=== PATIENT | male | born 1935 | race Caucasian/White ===

== ENCOUNTER 2019-05-04 17:53 | Emergency (ER) | payer OTHER ==
[2019-05-04 18:27] LABS: Absolute Lymphocytes (CBC) 1.4 K/uL (0.7-4.9); Basophils % 0.8 % (0-1.3); MPV 8.5 fL (7.6-11.3); RBC Red Blood Cell Count 5.07 M/uL (4.33-5.43)
--- NOTE | 2019-05-04 18:27 | RAD REPORT ---
EXAM DESCRIPTION: CT - Ct Stroke Brain Wo Cont - 05/04/2019 6:18 pm CLINICAL HISTORY: Confusion/alteration of awareness COMPARISON: 2013 TECHNIQUE: Computed axial tomography of the head was obtained. All CT scans are performed using dose optimization technique as appropriate and may include automated exposure control or mA/KV adjustment according to patient size. FINDINGS: An intracranial bleed is not seen . The ventricles are normal in caliber. No extra-axial fluid collection is noted. Moderate low-density within periventricular, deep and subcortical white matter likely ischemic change s secondary to small vessel disease Fluid within the sinuses/ mastoids is not seen. IMPRESSION: No acute intracranial abnormality is seen. If patient's symptoms persist MRI of the bra in would be recommended. Dr Pham of the emergency room was notified at 615 p.m. May 04, 2019
[2019-05-04 18:35] LABS: Protime INR 1.16
[2019-05-04 18:42] LABS: Potassium 4.2 mmol/L (3.5-5.1)
--- NOTE | 2019-05-04 19:23 | RAD REPORT ---
EXAM DESCRIPTION: Elvira Single View05/04/2019 7:11 pm CLINICAL HISTORY: cva COMPARISON: 2016 FINDINGS: The lungs appear clear of acute infiltrate. The heart is normal size IMPRESSION: No acute abnormalities displayed
--- NOTE | 2019-05-04 19:55 | EDPHYS ---
Physician Documentation [facility] Name: Valerio France Age: 84 yrs Sex: Male : 1935 Arrival Date: 05/04/2019 Time: 18:03 Bed 2 Private MD: ED Physician Chepe Pham HPI: 05/04 18:34 This 84 yrs old Male presents to ER via Wheelchair with complaints of S/S of jmm Possible Stroke. 18:34 The patient's problem is reported as paresthesias, in left upper extremity. Onset: The jmm symptoms/episode began/occurred just prior to arrival. The symptoms are alleviated by nothing. The symptoms are aggravated by nothing. Associated signs and symptoms: Pertinent positives: ataxia. This is an 84 year old male with a history of DM, TIA that presents to the ED with complaints of left sided weakness and numbness. Symptoms began approx 30 min prior to arrival. Initially began with left shoulder numbness which spread to the left leg and left side of the face. patient states symptoms are now resolved. Patient is not currently taking Xarelto. . Historical: - Allergies: 18:06 No Known Allergies; ph - PMHx: 18:06 Diabetes - NIDDM; TIA; ph - PSHx: 18:06 Knee surgery; ph - Immunization history:: Adult Immunizations up to date. - Social history:: Smoking status: Patient/guardian denies using tobacco. - Ebola Screening: : No symptoms or risks identified at this time. ROS: 18:34 Constitutional: Negative for fever, chills, and weight loss, Cardiovascular: Negative jmm for chest pain, palpitations, and edema, Respiratory: Negative for shortness of breath, cough, wheezing, and pleuritic chest pain. 18:34 Neuro: Positive for gait disturbance, numbness. 18:34 All other systems are negative. Exam: 18:34 Constitutional: This is a well developed, well nourished patient who is awake, alert, jmm and in no acute distress. Head/Face: atraumatic. Eyes: EOMI, no conjunctival erythema appreciated ENT: Moist Mucus Membranes Neck: Trachea midline, Supple Chest/axilla: Normal chest wall appearance and motion. Cardiovascular: Regular rate and rhythm. No edema appreciated Respiratory: Normal respirations, no respiratory distress appreciated Abdomen/GI: Non distended, soft Back: Normal ROM Skin: General appearance color normal MS/ Extremity: Moves all extremities, no obvious deformities appreciated, no edema noted to the lower extremities 18:34 Neuro: Orientation: is normal, Mentation: is normal, Memory: is normal, Cerebellar function: normal finger to nose testing, Motor: is normal, Sensation: is normal. 18:34 Psych: Behavior/mood is pleasant, cooperative. Vital Signs: 18:05 BP 163 / 81; Pulse 94; Resp 18; Pulse Ox 99% on R/A; Weight 72.57 kg; ph 19:23 BP 122 / 94; Pulse 82; Resp 19; Temp 98.5; Pulse Ox 98% on R/A; ak1 20:52 BP 130 / 71; Pulse 85; Resp 16; Pulse Ox 98% ; rr5 NIH Stroke Scale Scores: 18:02 NIHSS Score: 0 sg Norberto Coma Score: 19:23 Eye Response: spontaneous(4). Verbal Response: oriented(5). Motor Response: obeys rr5 commands(6). Total: 15. 20:52 Eye Response: spontaneous(4). Verbal Response: oriented(5). Motor Response: obeys rr5 commands(6). Total: 15. MDM: 18:20 Patient medically screened. [facility] 19:50 Data reviewed: vital signs, nurses notes. Counseling: I had a detailed discussion with [facility] the patient and/or guardian regarding: the historical points, exam findings, and any diagnostic results supporting the discharge/admit diagnosis, lab results, radiology results, the need to transfer to another facility. ED course: Family requested transfer to [facility]. I discussed the patient with Dr. Nelson whom will consult on admission. I discussed the patient with Dr. Medel whom accepted transfer. . 05/04 18:13 Order name: Basic Metabolic Panel; Complete Time: 18:50 12 18:13 Order name: CBC with Diff; Complete Time: 18:50 05/04 18:13 Order name: Protime (+inr); Complete Time: 18:50 12 18:13 Order name: Ptt, Activated; Complete Time: 18:50 12 18:33 Order name: Glucose, Ancillary Testing; Complete Time: 18:50 EDDC 05/04 20:46 Order name: Urine Dipstick--Ancillary (enter results) ar5 12/07 18:11 Order name: CT Stroke Brain w/o Contrast; Complete Time: 18:50 05/04 18:13 Order name: Stroke CXR 1 View; Complete Time: 19:29 05/04 18:13 Order name: EKG; Complete Time: 18:14 05/04 18:13 Order name: Accucheck; Complete Time: 18:56 05/04 18:13 Order name: Cardiac monitoring; Complete Time: 18:56 05/04 18:13 Order name: EKG - Nurse/Tech; Complete Time: 18:56 05/04 18:13 Order name: IV Saline Lock; Complete Time: 18:35 05/04 18:13 Order name: Labs collected and sent; Complete Time: 18:56 05/04 18:13 Order name: NPO; Complete Time: 18:56 05/04 18:13 Order name: O2 Per Protocol; Complete Time: 18:56 05/04 18:13 Order name: O2 Sat Monitoring; Complete Time: 18:56 05/04 18:13 Order name: Stroke Swallow Screen; Complete Time: 18:56 05/04 19:32 Order name: Urine Dipstick-Ancillary (obtain specimen); Complete Time: 20:05 apolinar Administered Medications: 19:56 Drug: foLIC Acid 1 mg Route: IVPB; Site: right antecubital; ak1 20:05 Follow up: IV Status: Completed infusion ak1 19:57 Drug: NS 0.9% 1000 ml Route: IV; Rate: 1 bolus; Site: right antecubital; ak1 20:05 Follow up: IV Status: Infusion continued upon transfer ak1 Point of Care Testing: Blood Glucose: 18:30 Blood Glucose: 261 mg/dL; hb Ranges: Critical Glucose Levels:Adult <50 mg/dl or >400 mg/dl <40 mg/dl or >180 mg/dl Disposition: 05/05 07:28 Co-signature as Attending Physician, Chepe Pham MD I agree with the assessment and kdr plan of care. Disposition: 05/04/19 19:54 Transfer ordered to Other Acute Care Facility. Diagnosis are Transient cerebral ischemic attack, unspecified, Paresthesia of skin. - Reason for transfer: Higher level of care. - Accepting physician is Medel. - Condition is Stable. - Problem is an acute exacerbation. - Symptoms are resolved. NIH Stroke Scale - NIH Stroke Score Date: 05/04/2019 Time: 18:02 Total Score = 0 1a. Level of Consciousness (LOC) - 0(Alert) 1b. Level of Consciousness (LOC) (Year \T\ Age) - 0(Both) 1c. LOC Commands (Open \T\ Closes Eyes/Senior Teradata Developer) - 0(Both) 2. Best Gaze (Lateral Gaze Paresis) - 0(Normal) 3. Visual Field Loss - 0(No visual loss) 4. Facial Palsy - 0(Normal) 5a. Left Arm: Motor (10-second hold) - 0(No drift) 5b. Right Arm: Motor (10-second hold) - 0(No drift) 6a. Left Leg: Motor (5-second hold - always test supine) - 0(No drift) 6b. Right Leg: Motor (5-second hold - always test supine) - 0(No drift) 7. Limb Ataxia (finger/nose \T\ heel/ba - test with eyes open) - 0(Absent) 8. Sensory Loss (pinprick arms/legs/face) - 0(Normal) 9. Best Language: Aphasia (description/naming/reading) - 0(No aphasia) 10. Dysarthria (speech clarity - read or repeat words) - 0(Normal) 11. Extinction and Inattention (visual/tactile/auditory/spatial/personal) - 0(No abnormality) Initials: Signatures: Dispatcher [employer] Durga Lopez RN RN sg Chepe Pham MD MD kdr Mickail, Joel, PA PA [facility] Sabina Headley RN RN ak1 Randa Gamboa RN RN Norma Zurita RN RN Tien Medina RN RN rr5 Corrections: (The following items were deleted from the chart) 05/04 20:54 19:54 05/04/2019 19:54 Transfer ordered to Other Acute Care Facility. Diagnosis rr5 is Transient cerebral ischemic attack, unspecified; Paresthesia of skin. Reason for transfer: Higher level of care. Accepting physician is Medel. Condition is Stable. Problem is an acute exacerbation. Symptoms are resolved. [facility]
--- NOTE | 2019-05-04 19:55 | ER ---
Nurse's Notes [facility] Name: Valerio France Age: 84 yrs Sex: Male : 1935 Arrival Date: 05/04/2019 Time: 18:03 Bed 2 Private MD: Diagnosis: Transient cerebral ischemic attack, unspecified;Paresthesia of skin Presentation: 05/04 18:03 Presenting complaint: Patient states: " I think I had a mini stroke." Reports numbness ph to L shoulder and L side of face, also reports trouble ambulating w/ L leg, symptom onset approx 30 min ago, hx of TIA. Transition of care: patient was not received from another setting of care. No acute neurological deficit is noted. Onset of symptoms was May 04, 2019. Risk Assessment: Do you want to hurt yourself or someone else? Patient reports no desire to harm self or others. Initial Sepsis Screen: Does the patient meet any 2 criteria? No. Patient's initial sepsis screen is negative. Does the patient have a suspected source of infection? No. Patient's initial sepsis screen is negative. Care prior to arrival: None. 18:03 Method Of Arrival: Wheelchair ph 18:03 Acuity: VICTORINO 2 ph Stroke Activation: Symptom onset < 3 hours Physician: Stroke Attending; Name: ; Notified At: ; Arrived At: Physician: Chief Stroke Resident; Name: ; Notified At: ; Arrived At: Physician: Stroke Resident; Name: ; Notified At: ; Arrived At: Physician: ED Attending; Name: ; Notified At: ; Arrived At: Physician: ED Resident; Name: ; Notified At: ; Arrived At: Historical: - Allergies: 18:06 No Known Allergies; ph - PMHx: 18:06 Diabetes - NIDDM; TIA; ph - PSHx: 18:06 Knee surgery; ph - Immunization history:: Adult Immunizations up to date. - Social history:: Smoking status: Patient/guardian denies using tobacco. - Ebola Screening: : No symptoms or risks identified at this time. Screenin:14 Abuse screen: Denies threats or abuse. Denies injuries from another. Nutritional hb screening: No deficits noted. Tuberculosis screening: No symptoms or risk factors identified. Fall Risk Total Estrella Fall Scale indicates Low Risk Score (25-44 pts). Fall prevention measures have been instituted. Side Rails Up X 2 Frequent Obs/Assesments occuring Family Present and informed to notify staff if they need to leave bedside As available Patient and Family Educated on Fall Prevention Program and strategies. Assessment: 18:01 Reassessment: Dr. Pham at bedside. hb 18:02 VAN Scoring: Arm Drift: Patients demonstrates NO arm weakness. Patient is VAN Negative. sg The patient has not been NPO before screening. The patient is alert, and able to follow commands. The patient does not exhibit slurred or garbled speech. The patient is not exhibiting difficulty speaking. The patient does not exhibit difficulty understanding words. The patient is able to swallow own secretions with no drooling or need for suction. Patient tolerated one teaspoon of water. No drooling, immediate coughing, gurgling, or clearing of the throat was noted. The patient tolerated 90mL of water. No drooling, immediate coughing, gurgling, or clearing of the throat was noted. The patient passed the bedside swallow screening. Oral medications may be given as ordered. Contact Physician for further diet orders. Provider notified of bedside swallow screening results: Chepe Pham MD. Reassessment: performed NIH and VAN screening, results reported to pt daughter at bedside as well as patient. 18:07 Reassessment: Pt taken to CT via stretcher. ph 18:14 Reassessment: Pt returned from CT via stretcher. An from inside lab at bedside for lab hb draw. 18:20 General: Appears in no apparent distress. Behavior is calm, cooperative. Pain: Denies hb pain. Neuro: Level of Consciousness is awake, alert, obeys commands, Oriented to person, place, time, situation. Cardiovascular: Capillary refill < 3 seconds Patient's skin is warm and dry. Respiratory: Airway is patent Respiratory effort is even, unlabored, Respiratory pattern is regular, symmetrical, Breath sounds are clear bilaterally. GI: No signs and/or symptoms were reported involving the gastrointestinal system. : No signs and/or symptoms were reported regarding the genitourinary system. EENT: No signs and/or symptoms were reported regarding the EENT system. Derm: Skin is pink, warm \\T\\ dry. Musculoskeletal: No signs and/or symptoms reported regarding the musculoskeletal system. 18:30 T-PA (Activase) Screening: Indications: Definite evidence of stroke, ischemic, embolic, hb or hypertensive: No. 19:22 General: Appears in no apparent distress. comfortable, Behavior is calm, cooperative, ak1 appropriate for age. Neuro: Level of Consciousness is awake, alert, obeys commands, Oriented to person, place, time, situation, Moves all extremities. Full function Speech is normal, Facial symmetry appears normal. Cardiovascular: No deficits noted. Respiratory: Airway is patent Respiratory effort is even, unlabored, Respiratory pattern is regular, symmetrical, Breath sounds are clear bilaterally. GI: No signs and/or symptoms were reported involving the gastrointestinal system. : No signs and/or symptoms were reported regarding the genitourinary system. EENT: No signs and/or symptoms were reported regarding the EENT system. Derm: Skin is pink, warm \\T\\ dry. Musculoskeletal: No signs and/or symptoms reported regarding the musculoskeletal system. 20:10 Reassessment: gibran of [facility] staff accepted the case. rr5 20:51 Reassessment: Patient appears in no apparent distress at this time. Patient is alert, rr5 oriented x 3, equal unlabored respirations, skin warm/dry/pink. report given to [facility] staff, awake breathing spontaneously at room air. vitally stable. no complaints made. Vital Signs: 18:05 BP 163 / 81; Pulse 94; Resp 18; Pulse Ox 99% on R/A; Weight 72.57 kg; ph 19:23 BP 122 / 94; Pulse 82; Resp 19; Temp 98.5; Pulse Ox 98% on R/A; ak1 20:52 BP 130 / 71; Pulse 85; Resp 16; Pulse Ox 98% ; rr5 [place] Coma Score: 19:23 Eye Response: spontaneous(4). Verbal Response: oriented(5). Motor Response: obeys rr5 commands(6). Total: 15. 20:52 Eye Response: spontaneous(4). Verbal Response: oriented(5). Motor Response: obeys rr5 commands(6). Total: 15. NIH Stroke Scale Scores: 18:02 NIHSS Score: 0 sg ED Course: 18:03 Patient arrived in ED. ph 18:04 Patient has correct armband on for positive identification. Placed in gown. Bed in low hb position. Call light in reach. Side rails up X 1. 18:05 Triage completed. ph 18:05 Inserted saline lock: 20 gauge in right forearm, using aseptic technique. ,using hb aseptic technique. by Durga TINAJERO. 18:06 Arm band placed on Patient placed in an exam room, on a stretcher, in view of staff ph members, on pulse oximetry. 18:16 CT completed. Patient tolerated procedure well. Patient moved back from CT. mw3 18:17 CT Stroke Brain w/o Contrast In Process Unspecified. EDMS 18:19 Murray Bennett PA is PHCP. m 18:19 Chepe Pham MD is Attending Physician. m 18:21 Initial lab(s) drawn, by roofing laborer, sent to lab. sg 18:21 IV discontinued, intact, bleeding controlled, No redness/swelling at site. Pressure sg dressing applied. 18:26 Missed attempt(s): 22 gauge in right forearm. Bleeding controlled, band aid applied, hb catheter tip intact. 18:33 Inserted saline lock: 20 gauge in right antecubital area, using aseptic technique. dh3 18:45 EKG done, by ED staff, reviewed by Murray JUSTICE. 3 19:11 Stroke CXR 1 View In Process Unspecified. EDMS 19:22 Sabina Headley RN is Primary Nurse. ak1 20:53 No provider procedures requiring assistance completed. rr5 Administered Medications: 19:56 Drug: foLIC Acid 1 mg Route: IVPB; Site: right antecubital; ak1 20:05 Follow up: IV Status: Completed infusion ak1 19:57 Drug: NS 0.9% 1000 ml Route: IV; Rate: 1 bolus; Site: right antecubital; ak1 20:05 Follow up: IV Status: Infusion continued upon transfer ak1 Point of Care Testing: Blood Glucose: 18:30 Blood Glucose: 261 mg/dL; hb Ranges: Outcome: 19:54 ER care complete, transfer ordered by . [facility] 20:53 Transferred by ground EMS to [facility], Transfer form completed. Note: rr5 taken by [facility] 20:53 Condition: stable 20:53 Instructed on the need for transfer. 20:54 Patient left the ED. rr5 NIH Stroke Scale - NIH Stroke Score Date: 05/04/2019 Time: 18:02 Total Score = 0 1a. Level of Consciousness (LOC) - 0(Alert) 1b. Level of Consciousness (LOC) (Year \\T\\ Age) - 0(Both) 1c. LOC Commands (Open \\T\\ Closes Eyes/Healthcare Customer Service) - 0(Both) 2. Best Gaze (Lateral Gaze Paresis) - 0(Normal) 3. Visual Field Loss - 0(No visual loss) 4. Facial Palsy - 0(Normal) 5a. Left Arm: Motor (10-second hold) - 0(No drift) 5b. Right Arm: Motor (10-second hold) - 0(No drift) 6a. Left Leg: Motor (5-second hold - always test supine) - 0(No drift) 6b. Right Leg: Motor (5-second hold - always test supine) - 0(No drift) 7. Limb Ataxia (finger/nose \\T\\ heel/ba - test with eyes open) - 0(Absent) 8. Sensory Loss (pinprick arms/legs/face) - 0(Normal) 9. Best Language: Aphasia (description/naming/reading) - 0(No aphasia) 10. Dysarthria (speech clarity - read or repeat words) - 0(Normal) 11. Extinction and Inattention (visual/tactile/auditory/spatial/personal) - 0(No abnormality) Initials: sg Signatures: Dispatcher [employer] Durga Lopez RN Murray Le PA PA jmm Krenek, Amber, RN RN ak1 Randa Gamboa RN RN Norma Zurita, LIOR RN Yudelka Johnston 3 Ale Bermudez 3 Tien Medina RN RN rr5
[2019-05-04] MEDS ORDERED: FOLIC ACID 5 MG/ML VIAL ONE (19:57)
[2019-05-04] MEDS ORDERED: NA CHLORIDE 0.9% 1,000 ML ONE (19:57)
[2019-05-04 21:53] VITALS: TEMP 98.5; O2SAT 98
[2019-05-04 21:55] VITALS: BP 130/71
[2019-05-04 23:02] LABS: Urine Blood NEGATIVE (NEG); Urine Glucose 2+ (NEG); Urine Protein NEGATIVE (NEG)
--- NOTE | 2019-05-05 06:04 | EKG ---
Test Date: 2019-05-04 Test Time: 18:45:04 Volleyball Referee: LEXY MEASUREMENT RESULTS: Intervals: Rate: 84 CA: 238 QRSD: 82 QT: 370 QTc: 437 [place]: P: 28 CA: 238 QRS: 28 T: 40 INTERPRETIVE STATEMENTS: Sinus rhythm with 1st degree AV block Otherwise normal ECG Compared to ECG 05/14/2016 16:26:25 Ventricular premature complex(es) no longer present Electronically Signed On 05-05-19 06:03:12 EXECUTIVE CANDIDATE DEVELOPER by Jaya Zendejas
== END 2019-05-04 20:54 ==
LOC: ER 17:53
DX: G45.9 Transient cerebral ischemic attack, unspecified (principal)
CPT/HCPCS: 93005; 85025; 80048; 36415; 85610; 82947; 85730; 81003; 70450; 71045; 96374; 99285; J7030

== ENCOUNTER 2020-06-18 20:51 | Emergency (ER) | payer OTHER ==
--- OUTSIDE RECORDS SUMMARY | 2020-06-18 20:53 | XMS REPORT | Continuity of Care Document ---
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/19 [facility] 14 Diabetes Resolved Problem 05/07/2019 mellitus Monica,M H (disorder) [facility], OP[facility] [place] Hypertensive Resolved Problem 05/07/2019 disorder, Monica,M H systemic [facility], arterial [facility] (disorder) [place] Transient Resolved Problem 05/07/2019 ischemic attack [place], (disorder) [facility], OPID [place] Type II diabetes Active Problem 05/07/2019 [place] mellitus uncontrolled (finding) TRANSIENT Active [facility] CEREBRAL [place] ISCHEMIC ATTACK, UNSP Medications Medication Details Route Status Patient Ordering Order Source Instructions Provider Date atorvastatin Notes: (Same Inactive as: Lipitor) 2019 [place] atorvastatin 20 20 mg = 1 tab, Active 05/05/ H MG Oral Tablet PO, Bedtime, # 2019 [place] [Lipitor] 30 tab, 0 Refill(s), Pharmacy: [facility]/pharmacy #[id number] Metformin 1,000 mg = 1 Active hydrochloride tab, PO, 2019 [place] 1000 MG Oral BID-Meals, # Tablet 30 tab, 0 Refill(s), Pharmacy: [facility]/pharmacy #[id number] canagliflozin 100 mg = 1 Active 100 MG Oral tab, PO, 2019 [place] Tablet Before [Invokana] Breakfast, # 30 tab, 2 Refill(s), Pharmacy: [facility]/pharmacy #[id number] pantoprazole Notes: For IV Inactive push 2019 [place] reconstitute with 10 ml 0.9% sodium chloride and push over 2 minutes. (Same as: Protonix) Saline Flush Notes: (Same Inactive 0.9% as: BD 2019 [place] Posiflush) Insulin Notes: (Same Inactive Glargine as: Lantus) Do 2019 [place] not hold insulin without contacting prescriber WASTE: F/P - Black; E - Municipal Trash Bin "single patient use only" Stable for 28 days at room temperature Expires in days from Date heparin Notes: porcine Inactive heparin 2019 [place] Aspirin 81 MG Notes: Do not Inactive Enteric Coated crush or chew. 2019 [place] Tablet (Same As: Ecotrin) Dextrose 50% 12.5 gm, 25 No Longer Syringe (D50W) mL, Route: Active 2018 [place] IVP, Drug Form: INJ, Dosing Weight 86.477, kg, PRN, PRN Blood Glucose Results, Start date: 05/04/19 23:07:00 [employer]AREPOINT CONSULTANT, Duration: 30 day, Stop date: 06/03/19 23:06:00 [employer]AREPOINT CONSULTANT, 0 Glucagon 1 mg, Route: No Longer IM, Drug form: Active 2018 [place] PDR/INJ, PRN, Dosing Weight 86.477, kg, PRN Blood Glucose Results, Start date: 05/04/19 23:07:00 SHAREPOINT CONSULTANT, Duration: 30 day, Stop date: 06/03/19 23:06:00 SHAREPOINT CONSULTANT, 0 Insulin Lispro Notes: (Same No Longer as: Humalog) Active 2019 [place] Roll in palms of hands gently; Do not shake vigorously. WASTE: F/P - Black; E - Municipal Trash Bin Stable for 28 days at room temperature. Expires in days from Date Aspirin Notes: Take No Longer with food. Active 2019 [place] Aspirin 81 MG Notes: Do not No Longer Enteric Coated crush or chew. Active 2019 [place] Tablet (Same As: Ecotrin) Acetaminophen Notes: Do not No Longer exceed 4 Active 2019 [place] gm/day. (Same as: Tylenol) Saline Flush Notes: (Same No Longer 0.9% as: BD Active 2019 [place] Posiflush) influenza virus Notes: (Same No Longer 05/05/ H vaccine, as: Fluzone Active 2019 [place] inactivated High-Dose) high-dose For 65 years preservative-fr of age of ee older (0.5 ml intramuscular IM) Shake well suspension before use rivaroxaban 20 20 mg = 1 tab, Active MG Oral Tablet PO, QPM, # 30 2019 [place] [Xarelto] tab, 3 Refill(s) Thyroxine 75 microgram, Active PO, Daily, 0 2018 [place] Refill(s) Amlodipine 10 1 cap, PO, Active MG / Benazepril Daily, [facility] 40 MG Oral Capsule Potassium 10 mEq, PO, Active Chloride Daily, 0 2018 [place] Refill(s) candesartan 2 mg, PO, No Longer Bedtime, 0 Active 2018 [place] Refill(s) Metformin 500 mg, PO, 0 No Longer Refill(s) Active 2018 [place] Allergies, Adverse Reactions, Alerts Substance Category Reaction Severity Reaction Status Date Comments S ource type Reported No Known Assertion Drug MH Medication allergy Maggie and Allergies Immunizations Immunization Date Given Site Status Last Comments Source Updated pneumococcal 10/28/2013 Left completed Zapata 23-valent vaccine Deltoid Pe giovana, JENISE, SUZETTE Chery Results Order Name Results Value Reference Date Interpretation Comments Winifred rce Range CARDIAC Troponin-I <0.02 0.00 - 12 ENZYMES 0.40 [place] CARDIAC Troponin-I <0.02 0.00 - 1208 ENZYMES 0.40 [place] CHEM PANEL Glucose Lvl 263 70 - 99 05/05 [place] CHEM PANEL BUN 15 7 - 22 05/05 [place] CHEM PANEL Creatinine 0.88 0.50 - 12 MH Lvl 1.40 [place] CHEM PANEL Sodium Lvl 142 135 - 145 05/05 [place] CHEM PANEL Potassium Lvl 3.7 3.5 - 5.1 05/05 [place] CHEM PANEL Chloride Lvl 111 95 - 109 05/05 [place] CHEM PANEL CO2 24 24 - 32 05/05 [place] CHEM PANEL Calcium Lvl 8.4 8.5 - 10.5 05/05 [place] CHEM PANEL eGFR 79 05/05 Result Comment: The [place] eGFR is calculated using the CKD-EPI formula. In most young, healthy individuals the eGFR will be >90 mL/min/1.73m2 . The eGFR declines with age. An eGFR of 60-89 may be normal in some populations, particularly the elderly, for whom the CKD-EPI formula has not been extensively validated. Use of the eGFR is not recommended in the following populations:< br/>
Nikia viduals with unstable creatinine concentration s, including patients and those with serious co-morbid conditions.<b r/>
Patie nts with extremes in muscle mass or diet.

The data above are obtained from the National Kidney Disease Education Program (NKDEP) which additionally recommends that when the eGFR is used in patients with extremes of body mass index for purposes of drug dosing, the eGFR should be multiplied by the estimated BMI. CHEM PANEL AGAP 10.7 10.0 - 12 MH 20.0 [place] HEMATOLOGY WBC 7.6 3.7 - 10.4 05/05 [place] HEMATOLOGY RBC 4.56 4.70 - 05/05 MH 6.10 [place] HEMATOLOGY Hgb 13.8 14.0 - 12 MH 18.0 [place] HEMATOLOGY Hct 41.0 42.0 - 12/08 MH 54.0 [place] HEMATOLOGY MCV 89.9 80.0 - 05/05 MH 94.0 [place] HEMATOLOGY MCH 30.3 27.0 - 12/08 MH 31.0 [place] HEMATOLOGY MCHC 33.7 32.0 - 12/08 MH 36.0 2019 [place] HEMATOLOGY RDW 14.5 11.5 - 12 MH 14.5 [place] HEMATOLOGY Platelet 243 133 - 450 05/05 [place] HEMATOLOGY MPV 8.6 7.4 - 10.4 05/05 [place] HEMATOLOGY Segs 67.4 45.0 - 12/08 MH 75.0 [place] HEMATOLOGY Lymphocytes 19.8 20.0 - 12/08 MH 40.0 [place] HEMATOLOGY Monocytes 9.8 2.0 - 12.0 12/08 MH /2019 [place] HEMATOLOGY Eosinophils 2.0 0.0 - 4.0 05/05 [place] HEMATOLOGY Basophils 1.0 0.0 - 1.0 05/05 [place] HEMATOLOGY Neutrophils # 5.1 1.5 - 8.1 05/05 [place] HEMATOLOGY Lymphocytes # 1.5 1.0 - 5.5 05/05 [place] HEMATOLOGY Monocytes # 0.7 0.0 - 0.8 05/05 [place] HEMATOLOGY Eosinophils # 0.2 0.0 - 0.5 05/05 [place] HEMATOLOGY Basophils # 0.1 0.0 - 0.2 05/05 [place] LIPIDS CHD Risk 4.74 4.00 - 05/05 7. [place] LIPIDS Chol 161 <=199 05/05 mg/dL [place] LIPIDS Trig 109 <=149 05/05 mg/dL [place] LIPIDS HDL 34 >=61 mg/dL 05/05 [place] LIPIDS LDL 105 <=99 mg/dL 05/05 (Calculated) [place] LIPIDS VLDL 22 05/05 [place] SPECIAL Hgb A1C 8.9 <=5.6 % 05/05 CHEMISTRY [place] CARDIAC Troponin-I <0.02 0.00 - 05/05 ENZYMES 0.40 [place] CHEM PANEL Glucose Lvl 267 70 - 99 05/05 [place] CHEM PANEL BUN 15 7 - 22 05/05 [place] CHEM PANEL Creatinine 0.99 0.50 - 05/05 Lvl 1.40 [place] CHEM PANEL Sodium Lvl 143 135 - 145 05/05 [place] CHEM PANEL Potassium Lvl 4.1 3.5 - 5.1 05/05 [place] CHEM PANEL Chloride Lvl 110 95 - 109 05/05 [place] CHEM PANEL CO2 27 24 - 32 05/05 [place] CHEM PANEL Calcium Lvl 8.9 8.5 - 10.5 05/05 [place] CHEM PANEL Total Protein 6.1 6.4 - 8.4 05/05 [place] CHEM PANEL Albumin Lvl 3.4 3.5 - 5.0 05/05 [place] CHEM PANEL ALT 16 0 - 65 05/05 [place] CHEM PANEL AST 10 0 - 37 05/05 [place] CHEM PANEL Alk Phos 53 39 - 136 05/05 [place] CHEM PANEL Bili Total 0.7 0.2 - 1.3 05/05 [place] CHEM PANEL eGFR 70 05/05 Comment: The [place] eGFR is calculated using the CKD-EPI formula. In most young, healthy individuals the eGFR will be >90 mL/min/1.73m2 . The eGFR declines with age. An eGFR of 60-89 may be normal in some populations, particularly the elderly, for whom the CKD-EPI formula has not been extensively validated. Use of the eGFR is not recommended in the following populations:< br/>
Nikia viduals with unstable creatinine concentration s, including patients and those with serious co-morbid conditions.<b r/>
Patie nts with extremes in muscle mass or diet.

The data above are obtained from the National Kidney Disease Education Program (NKDEP) which additionally recommends that when the eGFR is used in patients with extremes of body mass index for purposes of drug dosing, the eGFR should be multiplied by the estimated BMI. CHEM PANEL AGAP 10.1 10.0 - 05/05 MH 20.0 [place] CHEM PANEL B/C Ratio 15 6 - 25 05/05 [place] CHEM PANEL Globulin 2.7 2.7 - 4.2 05/05 [place] CHEM PANEL A/G Ratio 1.3 0.7 - 1.6 05/05 [place] HEMATOLOGY Segs 67.3 45.0 - 12 MH 75.0 2019 [place] HEMATOLOGY Lymphocytes 20.3 20.0 - 12 MH 40.0 /2019 [place] HEMATOLOGY Monocytes 9.1 2.0 - 12.0 05/05 [place] HEMATOLOGY Eosinophils 2.4 0.0 - 4.0 05/05 [place] HEMATOLOGY Basophils 0.9 0.0 - 1.0 05/05 [place] HEMATOLOGY Neutrophils # 5.4 1.5 - 8.1 05/05 [place] HEMATOLOGY Lymphocytes # 1.6 1.0 - 5.5 05/05 [place] HEMATOLOGY Monocytes # 0.7 0.0 - 0.8 05/05 [place] HEMATOLOGY Eosinophils # 0.2 0.0 - 0.5 05/05 [place] HEMATOLOGY Basophils # 0.1 0.0 - 0.2 05/05 [place] HEMATOLOGY WBC 8.0 3.7 - 10.4 05/05 [place] HEMATOLOGY RBC 4.65 4.70 - 05/05 MH 6.10 [place] HEMATOLOGY Hgb 14.0 14.0 - 05/05 MH 18.0 [place] HEMATOLOGY Hct 41.8 42.0 - 05/05 MH 54.0 /2018 [place] HEMATOLOGY MCV 89.8 80.0 - 05/05 MH 94.0 [place] HEMATOLOGY MCH 30.1 27.0 - 05/05 MH 31.0 [place] HEMATOLOGY MCHC 33.5 32.0 - 05/05 MH 36.0 [place] HEMATOLOGY RDW 14.5 11.5 - 05/05 MH 14.5 [place] HEMATOLOGY Platelet 249 133 - 450 05/05 [place] HEMATOLOGY MPV 8.2 7.4 - 10.4 05/05 [place] HEMATOLOGY PTT 31.5 22.9 - 05/05 MH 35.8 [place] HEMATOLOGY INR 1.15 0.85 - 05/05 MH 1.17 [place] HEMATOLOGY PT 14.5 12.0 - 05/05 MH 14.7 [place] IMMUNOLOGY Treponemal Ab Non-Reactive Non 05/05 *NA* /2018 [place] (05/05/19 2:31 AM) URINE AND UA Turbidity Clear Clear 05/05 [place] (05/05/19 2:31 AM) [facility] URINE AND UA Spec Grav 1.006 <=1.030 05/05 [place] /2018 [place] URINE AND UA pH 7.0 5.0 - 8.0 05/05 [facility] 2019 [place] URINE AND UA Protein Negative Negative 05/05 [place] mg/dL mg/dL [place] URINE AND UA Ketones Negative Negative 05/05 [place] mg/dL mg/dL [place] URINE AND UA Bili Negative Negative 05/05 [place] *NA* /2018 [place] (05/05/19 2:31 AM) URINE AND UA Blood Negative Negative 05/05 [place] (05/05/19 2:31 AM) [place] URINE AND UA Nitrite Negative Negative 05/05 [place] (05/05/19 2:31 AM) [place] URINE AND UA Leuk Est Negative Negative 05/05 [place] (05/05/19 2:31 AM) [place] URINE AND UA Sq Epi None Seen 05/05 [place] URINE AND UA Color STRAW 05/05 [place] URINE AND UA Glucose 150 05/05 [place] URINE AND UA <=1.0 0.1 - 1.0 05/05 [place] Urobilinogen mg/dL [place] Pathology Reports No Data Provided for This Section Diagnostic Reports Report Value Date Source Brain wo contrast MRI PROCEDURE INFORMATION: 05/05/2019 [facility] Exam: MR Head Without Contrast Exam date and time: 05/05/2019 12:31 PM Age: 84 years old Clinical history: Weakness, extremity; Left; Additional info: /pt with tingling of left hand TECHNIQUE: Imaging protocol: MR of the head without contras t. COMPARISON: BRAIN WO CONTRAST MRI 12/06/2013 11:50 AM . Carotid ultrasound May 05, 2019. FINDINGS: Brain: There is generalized diffuse atrophy. The re are mild periventricular white matter high signal foci without mass effec t likely microangiopathic in etiology. No diffusion abnormality to suggest ac yossi or subacute infarct. Ventricles: No ventriculomegaly. Bones/joints: Unremarkable. Soft tissues: Unremarkable. Sinuses: Sphenoid sinus air-fluid level. Mastoid air cells: Normal as visualized. No mast oid effusion. Orbits: Unremarkable. Vertebral arteries: Slow flow versus occlusion o f the right distal vertebral artery. IMPRESSION: 1. Chronic changes as described above. No acute intracranial process. 2. Slow flow versus occlusion of the right dista l vertebral artery. Jian Enrique MD On 05/05/2019 14:21:12; OSCAR [id number] Carotid artery PROCEDURE INFORMATION: 05/04/2019 [facility] Doppler bilat US Exam: US Duplex Bilateral Extracranial Arteries Exam date and time: 05/05/2019 5:27 AM Age: 84 years old Clinical history: /evaluate for carotid stenosis /tia work up TECHNIQUE: Imaging protocol: Real-time Duplex ultrasound scan of the bilateral carotid and vertebral arteries combining herrera scale, color D oppler and spectral waveform analysis. Bilateral exam. COMPARISON: BRAIN WO CONTRAST CT 10/26/2013 3:33 PM CAROTID DOPPLER TECHNIQUE: Herrera-scale, color Doppler and spectral Doppler o f the carotid arteries was performed. Any reported ICA stenoses in directly reference the distal internal carotid diameter as the denominator for the sten osis measurement, utilizing consensus panel criteria. FINDINGS: * HERRERA SCALE AND COLOR-FLOW : There is mild scattered plaque involving the right carotid bulb and proximal internal carotid arter y without evidence of significant stenosis. There is mild diffuse intimal thickening involvi ng the distal left common carotid artery with moderate scattered plaque in volving the left carotid bulb and proximal internal carotid artery. There is n o evidence of a significant stenosis involving the common or internal caroti d artery. * VELOCITY MEASUREMENTS RIGHT CAROTID SYSTEM : -Right internal carotid artery peak systolic elise ocity: Within normal limits, 76 cm/sec -ICA/CCA ratio (systolic velocity ratio): Withi n normal limits, 1.0 LEFT CAROTID SYSTEM : -Left internal carotid arter y peak systolic velocity: Within normal limits, 63 cm/sec -ICA/CCA ratio (systolic velocity ratio): Withi n normal limits, 1.4 There is increased velocity within the left exte rnal carotid artery which measures 211 cm/s, probable left external caroti d artery stenosis. * VERTEBRAL ARTERIES: Both vertebral arteries were demonstrate d. There is antegrade flow within both vertebral arteries. IMPRESSION: 1. No evidence of a hemodynamically significant stenosis involving either common or external carotid artery. 2. Mild plaque involving the right carotid bulb and proximal internal carotid artery. 3. Diffuse intimal thickening of the distal left common carotid artery with moderate plaquing involving the left carotid bulb and proximal internal carotid artery. 4. Increased velocity within the left external c arotid artery. Suspect left external carotid artery stenosis. Consensus panel Doppler US criteria for diagnosi s of ICA stenosis: Stenosis (%) ICA PSV (cm/sec) ICA/CCA ratio <50 <125 <2.0 50-69 125-230 2.0-4.0 >70 but less than >230 >4.0 near occlusion Near occlusion High, low, or Variable undetectable Sedrick Pérez MD On 05/05/2019 08:33:35; VR-R [id number] Brain wo contrast MRI EXAM: MRI of the brain without contrast. 0 12/06/2013 [place] DATE: 12/06/2013 CLINICAL HISTORY: Stroke. COMPARISON: CT 10/27/2013, MRI 10/27/2013 TECHNIQUE: Multiplanar image s of the brain were obtained in a high field magnet without contrast administration. DISCUSSION: There is a new focus of rest ricted diffusion in the subcortical white matter of the right frontal lobe. No acute intracranial hemorrhage, hydrocephalus or midline shift. Persistent hyperintense signal i n the DWI images without mat guido ADC abnormality in the medial aspect of the left precentral sulcus secondary to 'T2 shine through'. The rest of the exam is unchanged. IMPRESSION: New small focus of restricte d diffusion in the subcortical white matter of the right frontal lobe. Consultation Notes No Data Provided for This Section Discharge Summaries No Data Provided for This Section History and Physicals No Data Provided for This Section Vital Signs Vital Sign Value Date Comments Source Temperature Oral (F) 97.2 F 05/05/2019 [facility] Heart Rate 78 05/05/2019 [place] Respitory Rate 18 05/05/2019 [place] Systolic (mm Hg) 152 05/05/2019 [place] Diastolic (mm Hg) 71 05/05/2019 [place] Temperature Oral (F) 97.3 F 05/05/2019 [facility] Heart Rate 63 05/05/2019 [place] Respitory Rate 18 05/05/2019 [place] Systolic (mm Hg) 138 05/05/2019 [place] Diastolic (mm Hg) 75 05/05/2019 [place] Temperature Oral (F) 97.3 F 05/05/2019 [facility] Heart Rate 68 05/05/2019 [place] Respitory Rate 19 05/05/2019 [place] Systolic (mm Hg) 143 05/05/2019 [place] Diastolic (mm Hg) 72 05/05/2019 [place] Height 187.96 cm 05/05/2019 [facility] Weight 86.477 05/05/2019 [facility] BMI Calculated 24.48 05/05/2019 [facility] Encounters Location Location Encounter Encounter Reason Attending ADM DC Stat us Source Details Type Number For Provider Date Date Visit [facility] Outpt Diag [id number] Anjail 12/06 12/07 M [facility] Outpatient Services 0 Sharri Marvin [facility] Vik [facility] Outpatient [id number] Anjail 12/06 12/07 [facility] [place] 0 [facility] Observation [id number] 05/[address] [facility] Procedures Procedure Code Date Perfomer Comments Source Cataract surgery [id number] [facility] and Knee joint [id number] [facility] operation Assessment and Plan Assessment and Plan Date Source Extracted from:Title: Teleneurology Consultation 05/05/2019 [facility] Author: Abram Nelson MD Date: 05/05/19 TELEMEDICINE NEUROLOGY - CONSULTATION Date of Consult: 05/05/2019 CC: numbness on the left side HISTORY OF PRESENT ILLNESS: 84-year-old male with past medical histo ry of diabetes, hypertension, TIA, presents as a transfer from outside ER with complaints of left-sided facial paresthesias along with arm and leg paresthesias th at occurred earlier prior to transfer. Katiuska ankush stated this evening about 4:30 PM after feeding the chickens and on his way back on trying to close the door with his shoulders, the left side of his hand and legs felt numb with tingling. Initially it started as a mild sensation , but progressively got worse remaining persistent so he told his to bring him to the hospital. Patient has had similar numbness/tingling episodes in the pas t as well. Occasionally he gets weak in both his legs too. Home meds: amLODIPine-benazepril 10 mg-40 mg oral capsule, 1 cap, PO, Daily candesartan, 2 mg, PO, Bedtime levothyroxine, 75 microgram, PO, Daily metFORMIN, 500 mg, PO potassium chloride, 10 mEq, PO, Daily Xarelto 20 mg oral tablet, 20 mg, 1 tab, PO, QPM PAST MEDICAL HISTORY:TIA DM (diabetes mellitus) Hypertension PAST SURGICAL HISTORY: Knee joint operation Cataract surgery FAMILY MEDICAL HISTORY: No qualifying data available SOCIAL HISTORY:Alcohol Details: Current, Frequency: 1-2 times p er year. Alcohol use interferes with work or home: No. Drinks more than intended: No. Tobacco Details: Use: Former smoker. Type: Ciga rettes. Tobacco smoke exposure: None. Did the Patient Smoke Cigarettes Anytime During the Last 365 Days? No. Cessation Counseling Provided? No. Substance Abuse Details: Use: None. IV drug use: No. Drug use interferes w ith work/home: No. MEDS: Medications (23) Active Scheduled Meds (6): 05/04/19 aspirin (aspirin 81 mg tablet, enteric coated) 81 m g PO Q24H 05/05/19 atorvastatin 80 mg PO Bedtime 05/05/19 heparin 5,000 unit SUB-Q Q8H 05/05/19 insulin glargine 20 unit SUB-Q Daily 0 ml/hr 05/05/19 pantoprazole 40 mg IVP Daily 05/05/19 sodium chloride (Saline Flush 0.9%) 10 ml IVP Q12H Unscheduled Meds (1): 05/04/19 influenza virus vaccine, inacti vated (influenza virus vaccine, inactivated high-dose preservative-free intramuscular suspension) 0.5 mL IM ONCALL PRN Meds (14): 05/04/19 Dextrose 50% in Water IV (Dextrose 50% Syring e (D50W)) 12.5 gm IVP PRN 05/04/19 Dextrose 50% in Water IV (Dextrose 50% Syringe (D50 W)) 25 gm IVP PRN 05/04/19 acetaminophen 650 mg PO Q4H 05/04/19 glucagon 1 mg IM PRN 05/04/19 insulin lispro 2 unit SUB-Q TID-Before Meals 05/04/19 insulin lispro 4 unit SUB-Q TID-Before Meals 05/04/19 insulin lispro 6 unit SUB-Q TID-Before Meals 05/04/19 insulin lispro 8 unit SUB-Q TID-Before Meals 05/04/19 insulin lispro 10 unit SUB-Q TID-Before Meals 05/04/19 insulin lispro 1 unit SUB-Q Bedtime 05/04/19 insulin lispro 2 unit SUB-Q Bedtime 05/04/19 insulin lispro 3 unit SUB-Q Bedtime 05/04/19 insulin lispro 4 unit SUB-Q Bedtime 05/04/19 sodium chloride (Saline Flush 0.9%) 10 ml IVP PRN One Time Meds (2): 05/04/19 (Completed) aspirin 325 mg PO ONCE 05/04/19 (Deleted) aspirin (aspirin 81 mg tablet, enteric coated) 81 mg PO ONCE Continuous Infusions: None ALLERGIES:Allergies: No Known Medication Allergies PHYSICAL EXAM: Vitals and Measurements HT: 187.96 cm HT Collection: Stated WT: 86.477 kg WT Collection: Measured BP: 152/71 HR(Peripheral): 78 bpm RR: 18 BRMIN T(O): 97.2 DegF BP Site: Left arm BP Collection: Electronic BP Collectio n Position: Lying BMI: 24.48 m2 BSA: 2.1249 m2 SpO2: 97 % O2 Sat Location: Left hand /finger Room Air: Yes Pulse Ox Activity: Resting AAO x3 , speech is fluent, able to repeat, follow commands a nd name EOMI, VFFTC, Face symmetric, sensation intact, no dysarthria , tongue midline Motor - RUE 5/5 RLE 5/5 LUE 5/5 LLE 5/5 Sensation- intact to light touch throughout Coordination: Normal FTN and HTS, no ataxia noted NIH Stroke Scale (NIHSS) 0 1a. Level of Consciousness; 0-alert 1-drowsy 2-stupor 0 1b. LOC Questions month and age; 0-both 1-one 2-neither 0 1c. LOC Commands open/close eyes, surgeon's assistant/r elease non-paretic hand; 0-both 1-one 2-neither 0 2. Best Gaze; 0-nl 1-partial 2-forced gaze 0 3. Visual Zapata; 0-No visual loss. 1-Partial hemianop ia 2-Complete 3-Bilateral 0 4. Facial Palsy; 0-none 1-minor 2-partial 3-complete 0 5. Motor - R arm; 0-No drift 1-Drift 2-S ome antigravity 3-No antigravity 4-No movement 0 6. Motor - R leg; 0-No drift 1-Drift 2-S ome antigravity 3-No antigravity 4-No movement 0 7. Motor - L arm; 0-No drift 1-Drift 2-S ome antigravity 3-No antigravity 4-No movement 0 8. Motor - L leg; 0-No drift 1-Drift 2-S ome antigravity 3-No antigravity 4-No movement 0 9. Limb Ataxia; 0 absent 1 - 1limb 2 - 2 limbs 0 10. Sensory; 0-nl 1-partial loss 2-dense loss 0 11. Best Language; 0-nl 1-mild/mod 2-severe 3-mute 0 12. Dysarthria; 0-nl 1-mild/mod 2-severe x-untestable 0 13. Extinction and Inattention (formerly Neglect); 0-none 1- partial 2-complete TOTAL SCORE 0 Pre-morbid mRS LABS: [facility] A/G Ratio: 1.3 (05/05/19) AGAP: 10.7 mEq/L (05/05/19) Albumin Lvl: 3.4 g/dL Low (05/05/19) Alk Phos: 53 unit/L (05/05/19) ALT: 16 unit/L (05/05/19) AST: 10 unit/L (05/05/19) B/C Ratio: 15 (05/05/19) Basophils: 1 % (05/05/19) Basophils #: 0.1 K/CMM (05/05/19) Bili Total: 0.7 mg/dL (05/05/19) BUN: 15 mg/dL (05/05/19) Calcium Lvl: 8.4 mg/dL Low (05/05/19) CHD Risk: 4.74 (05/05/19) Chloride Lvl: 111 mEq/L High (05/05/19) Chol: 161 mg/dL (05/05/19) CO2: 24 mEq/L (05/05/19) Creatinine Lvl: 0.88 mg/dL (05/05/19) eGFR: 79 mL/min/1.73m2 (05/05/19) Eosinophils: 2 % (05/05/19) Eosinophils #: 0.2 K/CMM (05/05/19) Globulin: 2.7 g/dL (05/05/19) Glucose Lvl: 263 mg/dL High (05/05/19) Glucose POC: 120 mg/dL High (05/05/19) Hct: 41 % Low (05/05/19) HDL: 34 mg/dL Low (05/05/19) Hgb: 13.8 g/dL Low (05/05/19) Hgb A1C: 8.9 % High (05/05/19) INR: 1.15 (05/05/19) LDL (Calculated): 105 mg/dL High (05/05/19) Lymphocytes: 19.8 % Low (05/05/19) Lymphocytes #: 1.5 K/CMM (05/05/19) MCH: 30.3 pg (05/05/19) MCHC: 33.7 g/dL (05/05/19) MCV: 89.9 fL (05/05/19) Monocytes: 9.8 % (05/05/19) Monocytes #: 0.7 K/CMM (05/05/19) MPV: 8.6 fL (05/05/19) Neutrophils #: 5.1 K/CMM (05/05/19) Platelet: 243 K/CMM (05/05/19) POC Performing Location: See Note (05/05/19) Potassium Lvl: 3.7 mEq/L (05/05/19) PT: 14.5 seconds (05/05/19) PTT: 31.5 seconds (05/05/19) RBC: 4.56 M/CMM Low (05/05/19) RDW: 14.5 % (05/05/19) Segs: 67.4 % (05/05/19) Sodium Lvl: 142 mEq/L (05/05/19) Total Protein: 6.1 g/dL Low (05/05/19) Treponemal Ab: Non-Reactive (05/05/19) Tri mg/dL (05/05/19) Troponin-I: <0.02 (05/05/19) UA Bili: NEG (05/05/19) UA Blood: NEG (05/05/19) UA Color: STRAW (05/05/19) UA Glucose: 150 (05/05/19) UA Ketones: NEG (05/05/19) UA Leuk Est: NEG (05/05/19) UA Nitrite: NEG (05/05/19) UA pH: 7 (05/05/19) UA Protein: NEG (05/05/19) UA Spec Grav: 1.006 (05/05/19) UA Sq Epi: None Seen (05/05/19) UA Turbidity: Clear (05/05/19) UA Urobilinogen: <=1.0 (05/05/19) VLDL: 22 (05/05/19) WBC: 7.6 K/CMM (05/05/19) DIAGNOSTIC TESTS: Imaging Studies (last 36 hours) Carotid artery Doppler bilat US 05/05/2019 08:33 Impression: 1. No evidence of a hemodynamically significant stenosis inv olving either common or external carotid artery. 2. Mild plaque involving the right carotid bulb and proximal internal carotid artery. 3. Diffuse intimal thickening of the distal left common chao tid artery with moderate plaquing involving the left carotid bulb and proximal internal carotid artery. 4. Increased velocity within the left external carotid arter y. Suspect left external carotid artery stenosis. Consensus panel Doppler US criteria for diagnosis of ICA juli nosis: Stenosis (%) ICA PSV (cm/sec) ICA/CCA rati o <50 <125 <2.0 50-69 125-230 2. 0-4.0 >70 but less than >230 >4.0 near occlusion Near occlusion High, low, or Variabl e undetectable Sedrick Pérez MD On 05/05/2019 08:33:35; [id number] ASSESSMENT: 84 YearsoldWhite/CaucasianMalepresentin g withnow resolved numbess/tingling on the left side. Suspect stroke recrudescence and less likely a TIA. Plan : Discontinue ASA Continue Xarelto at home doses 20mg daily. If TTE is unremarkable, can be discharged home from a neurol ogy standpoint Goal HBA1c<7, medicine to help improve glycemic control Lipitor 20mg daily F/u with Dr. Vargas in clinic in 6 weeks. Plan of Care No Data Provided for This Section Social History Social History Date Source Social History TypeResponse 05/05/2019 [facility] Alcohol Current, Frequency: 1-2 times per year. Alcohol use interferes with work or home: No. Drinks more than intended: No. Substance Abuse Use: None. IV drug use: No. Drug use interferes with work/ home: No. Smoking Status Former smoker; Type: Cigarettes; Exposur e to Tobacco Smoke None; Cigarette Smoking Last 365 Days No; Reg Smoking Cessation Counseling No entered on: 05/04/19 Social History TypeResponse 10/27/2013 [facility] Neyda filemon Substance Abuse Use: None, IV drug use: No, Has drug use interfered with your work or home life? No Alcohol Use: Current, Frequency: 1-2 times per m onth, Has alcohol use interfered with work or home life? No, Do you ever drink more than intended? No Smoking Status Former smoker, Exposure to Tobacco Smoke None, Cigarette Smoking Last 365 Days No, Reg Smoking Cessation Counseling No Social History TypeResponse 10/27/2013 [facility] Substance Abuse Use: None, IV drug use: No, Has drug use interfered with your work or home life? No Alcohol Use: Current, Frequency: 1-2 times per m onth, Has alcohol use interfered with work or home life? No, Do you ever drink more than intended? No Smoking Status Former smoker, Exposure to Tobacco Smoke None, Cigarette Smoking Last 365 Days No, Reg Smoking Cessation Counseling No Family History No Data Provided for This Section Advance Directives No Data Provided for This Section Functional Status No Data Provided for This Section
--- OUTSIDE RECORDS SUMMARY | 2020-06-18 20:55 | XMS REPORT | Continuity of Care Document ---
:1935 Author Organization [facility] t Address [address] [place] [address] Care Team Providers Name Role Phone Alexis MACRIAL Primary Care Physician Unavailable Dick JUSTICE, A Attending Clinician Lab, Fam Pob I Attending Clinician Unavailable Alexis MARCIAL Attending Clinician Unavailable Will MURRAY M Attending Clinician RUDY, Jovita Attending Clinician Unavailable Rudy MORRIS, A Attending Clinician Satish Rodrigues Attending Clinician Aiden Vargas Attending Clinician Satish Rodrigues Admitting Clinician Payers Payer Name Policy Type Policy Number Effective Date Expiration Date S astrid [employer] MEDICARE [id number] 2013 PPO 00:00:00 MEDICARE [id number] 2013 2013 ADVANTAGE GENERIC 00:00:00 00:00:00 Problems Condition Condition Condition Status Onset Resolution Last Treating Co mments Source Name Details Category Date Date Treatment Clinician Date TIA Diagnosis Active 2018-052019-05-10 Mem oria 2 22:06:00 l TIA 00:00: Ava 00 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 00:00: n athy athy 00 History of History of Disease Active M Alexander cerebrovas cerebrovas 9-24 An derso cular cular 00:00: n accident accident 00 Multiple Multiple Disease Active myeloma myeloma 2-28 Anderso 00:00: n 00 Renal Renal Disease Active insufficie insufficie 2-28 An derso ncy ncy 00:00: n 00 Abdominal Abdominal Disease Active 2017-05 bruit bruit 0-03 Anderso 00:00: n 00 Influenza Influenza Disease Active 2017-05 vaccine vaccine 0-03 Anderso needed needed 00:00: n 00 Hypothyroi Hypothyroi Disease Active 2015-05 Last Alexis Munoz dism dism 0-08 Assessmen Anderso 00:00: t & Plan: n 00 Continue on synthroid . This is monitored by his local physician . Essential Essential Disease Active 2015-05 Last hypertensi hypertensi 0-08 Assessmen Anderso on on 00:00: t & Plan: n 00 Formattin g of this note might be different from the original. His blood pressure is BP Readings from Last 1 Encounter s: 02/22/17 132/79 . Continue current blood pressure regimen and follow with PCP. 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 436 - CVA Diagnosis Active 2013-12-06 Memoria 11-25 10:30:00 l 436 - 00:01: Vik CVA 00 Active 11/25/2013 ERNST BRADFORD Vik STROKE Diagnosis Active 2013-12-06 Mem oria 11-25 13:21:00 l STROKE 00:00: Vik 00 Active 11/25/2013 ERNST TIRRosa Diabetes Problem Resolve 2019-05-07 Me moria mellitus d 22:42:21 l (disorder) Diabetes He rmann mellitus (disorder) Resolved Problem 05/07/2019 Alexis Newman TIRRosa,ERNST Chery Hypertensi Problem Resolve 2019-05-07 Memoria ve d 22:42:21 l disorder, Vik systemic Hypertensi arterial ve (disorder) disorder, systemic arterial (disorder) Resolved Problem 05/07/2019 ERNST GeringAlexis H TIRR, OPID Vik Transient Problem Resolve 2019-05-07 M emoria ischemic d 22:42:21 l attack Vik (disorder) Transient ischemic attack (disorder) Resolved Problem 05/07/2019 ERNST AndersonAlexis H TIRR, OPID Vik Type II Problem Active 2019-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 22:42:21 l mellitus Type II Edna nn uncontroll diabetes ed mellitus (finding) uncontroll ed (finding) Active Problem 05/07/2019 ERNST Anderson TRANSIENT Diagnosis Active 2019-05-10 Memoria CEREBRAL 22:06:00 l ISCHEMIC Ava ATTACK, TRANSIENT UNSP CEREBRAL ISCHEMIC ATTACK, UNSP Active [facility] Allergies, Adverse Reactions, Alerts Allergy Allergy Status Severity Reaction(s) Onset Inactive Treating Comm ents Source Name Type Date Date Clinician No Known No Known Active Memori a Medicati Medicati l on on Ava Allergie Allergie s s Family History Family Member Diagnosis Comments Start Date Stop Date Source Natural father -Genitourinary (Bladder, MD Rothman Kidney, Prostate, Testicle) Social History Social Habit Start Date Stop Date Quantity Comments Source History of Cigar Smoker MD Rothman tobacco use Sex Assigned At MD Espinosa on Tobacco use and 2018-03-23 2018-03-23 Never used MD Espinosa on exposure 00:00:00 00:00:00 Alcohol intake 2018-03-23 2018-03-23 Current MD Prisca sanchez 00:00:00 00:00:00 non-drinker of alcohol (finding) Tobacco Comment 2015-09-22 2015-09-22 quit in 1959 MD Irving gupta 00:00:00 00:00:00 Social History 2013-10-27 2013-10-[address] [facility] erik 07:44:46 07:44:46 Smoking Status Start Date Stop Date Source Former smoker 2018-03-23 00:00:00 2018-03-23 00:00:00 MD Robles adams Medications Ordered Filled Start Stop Current Ordering Indication Dosage Frequency Signature Comments Components Source Medication Medication Date Date Medication? Clinician (SIG) Name Name levothyroxi 2020-0 Yes 75ug Take 75 MD eric 7-24 mcg by Prisca (SYNTHROID, 14:58: mouth n LEVOTHROID) 25 daily. 75 mcg tablet amLODIPine- 2019-0 Yes Take by benazepril 7-24 mouth at Robles so (LOTREL) 10 14:58: bedtime. n mg-40 mg 25 per capsule rivaroxaban 2019-0 Yes 10mg Take 10 mg MD (XARELTO) 7-24 by mouth Jesús o 10 mg 14:58: daily. n tablet 25 metFORMIN 2019-0 Yes 1000mg Take 1,000 MD (GLUCOPHAGE 7-24 mg by Anderso ) 500 mg 14:58: mouth 2 n tablet 25 (two) times a day with meals. sitaGLIPtin 2019-0 Yes Take by MD -metFORMIN 7-24 mouth 2 Jesús o (JANUMET) 14:58: (two) n 50 mg-1,000 25 times a mg per day with tablet meals. aspirin 81 2019- 2020- No 81mg Take 81 mg MD mg EC 12-19 07-24 by mouth Anderso tablet 14:57: 00:00 daily. n 32 :00 atorvastati 2018-05 No Notes: Chema zana n 2-09 (Same as: l 03:00: Lipitor) Ava atorvastati 2018-05 Yes 20 mg = 1 M emoria n 20 MG 2-08 tab, PO, l Oral Tablet 22:04: Bedtime, # Vik [Lipitor] 00 30 tab, 0 Refill(s), Pharmacy: [id number] Metformin 2018-05 Yes 1,000 mg = Me moria hydrochlori 2-08 1 tab, PO, l de 1000 MG 22:04: BID-Meals, H ermann Oral Tablet 00 # 30 tab, 0 Refill(s), Pharmacy: [id number] canaglifloz 2018-05 Yes 100 mg = 1 Memoria in 100 MG 2-08 tab, PO, l Oral Tablet 22:04: Before Herm filemon [Invokana] 00 Breakfast, # 30 tab, 2 Refill(s), Pharmacy: [facility] #[id number] pantoprazol 2018-05 No Notes: For Memoria e 2-08 IV push l 15:00: reconstitu Ava 00 te with 10 ml 0.9% sodium chloride and push over 2 minutes. (Same as: Protonix) Saline 2018-05 No Notes: Memoria Flush 0.9% 2-08 (Same as: l 15:00: BD Vik 00 Posiflush) Insulin 2018-05 No Notes: Memoria Glargine 2-08 (Same as: l 15:00: Lantus) Do Vik 00 not hold insulin without contacting prescriber WASTE: F/P - Black; E - Municipal Trash Bin "single patient use only" Stable for 28 days at room temperatur e Expires in days from ____Date heparin 2018-05 No Notes: Memoria 2-08 porcine l 06:00: heparin Ava 00 Aspirin 81 2018-05 No Notes: Do Me moria MG Enteric 2-08 not crush l Coated 05:16: or chew. Vik Tablet 00 (Same As: Ecotrin) Dextrose 2018-05 No 12.5 gm, Memor ia 50% Syringe 2-08 25 mL, l (D50W) 05:07: Route: Ava 00 IVP, Drug Form: INJ, Dosing Weight 86.477, kg, PRN, PRN Blood Glucose Results, Start date: 05/04/19 23:07:00 [employer]GER, Duration: 30 day, Stop date: 06/03/19 23:06:00 [employer] MANAGER, 0 Glucagon 2018-05 No 1 mg, Memoria 2-08 Route: IM, l 05:07: Drug form: Vik PDR/INJ, PRN, Dosing Weight 86.477, kg, PRN Blood Glucose Results, Start date: 05/04/19 23:07:00 [employer] MANAGER, Duration: 30 day, Stop date: 06/03/19 23:06:00 [employer] PORTF[employer]IO MANAGER, 0 Insulin 2018-05 No Notes: Memoria Lispro 2-08 (Same as: l 05:07: Humalog) Vik 00 Roll in palms of hands gently; Do not shake vigorously . WASTE: F/P - Black; E - Municipal Trash Bin Stable for 28 days at room temperatur e. Expires in days from ____Date Aspirin 2018-05 No Notes: Memoria 2-08 Take with l 05:05: food. Aspirin 81 2018-05 No Notes: Do Me moria MG Enteric 2-08 not crush l Coated 05:00: or chew. Ava Tablet 00 (Same As: Ecotrin) Acetaminoph 2018-05 No Notes: Do M emoria en -08 not exceed l 04:57: 4 gm/day. Ava (Same as: Tylenol) Saline 2018-05 No Notes: Memoria Flush 0.9% 07-06 (Same as: l 04:57: BD Vik Posiflush) influenza 2018-05 No Notes: Memori a virus 08 (Same as: l vaccine, 04:16: Fluzone Pradip n inactivated 55 High-Dose) high-dose For 65 preservativ years of e-free age of intramuscul older (0.5 ar ml IM) suspension Shake well before use rivaroxaban 2018-05 Yes 20 mg = 1 M emoria 20 MG Oral 2-08 tab, PO, l Tablet 04:15: QPM, # 30 Pradip n [Xarelto] 00 tab, 3 Refill(s) Thyroxine 2018-05 Yes 75 Memoria 2-08 microgram, l 04:15: PO, Daily, Ava 00 0 Refill(s) Amlodipine 2018-05 Yes 1 cap, PO, M emoria 10 MG / 2-08 Daily, 0 l Benazepril 04:15: Refill(s) He rmann hydrochlori 00 de 40 MG Oral Capsule Potassium 2018-05 Yes 10 mEq, Memor ia Chloride 2-08 PO, Daily, l 04:15: 0 Vik 00 Refill(s) candesartan 2018-05 No 2 mg, PO, M emoria 2-08 Bedtime, 0 l 04:15: Refill(s) Vik Metformin 2018-05 No 500 mg, Memor ia 2-08 PO, 0 l 04:15: Refill(s) Vik 00 furosemide 2020- No 20mg Take 20 mg MD (LASIX) 20 7-14 07-24 by mouth Irving rso mg tablet 00:00: 00:00 as needed. n 00 :00 potassium Yes TAKE 1 MD chloride 4-22 TABLET BY Jesús garcia (K-DUR,KLOR 00:00: MOUTH n -CON M) 10 00 EVERY DAY mEq tablet candesartan Yes take 1 MD (ATACAND) 4 2-22 tablet Jesús o mg tablet 00:00: every nigh n 00 Immunizations Ordered Immunization Filled Immunization Date Status Commen ts Source Name Name Influenza, 2018-02-28 Completed MD Rothman Unspecified 00:00:00 Vital Signs Vital Name Observation Time Observation Value Comments Source WEIGHT 2019-12-20 09:44:00 87.9 kg WEIGHT 2019-12-20 09:44:00 87.9 kg Systolic blood 2019-12-20 14:45:14 138 mm[Hg] pressure Diastolic blood 2019-12-20 14:45:14 65 mm[Hg] MD Mcneill derson pressure Heart rate 2019-12-20 14:45:14 81 /min MD Arboleda son Body temperature 2019-12-20 14:45:14 37 Belen MD Hussein nderson Respiratory rate 2019-12-20 14:45:14 16 /min MD Hussein ndethanhon Oxygen saturation in 2019-12-20 14:45:14 98 /min MD Rothman Arterial blood by Pulse oximetry Body weight 2019-12-20 14:44:00 87.9 kg MD Arboleda son BMI 2019-12-20 14:44:00 27.43 kg/m2 MD Robles adams Temperature Oral (F) 2019-05-05 18:10:00 97.2 F [facility] Heart Rate 2019-05-05 18:10:00 [facility] Respitory Rate 2019-05-05 18:10:00 Memori al Ava Systolic (mm Hg) 2019-05-05 18:10:00 Chema rial Vik Diastolic (mm Hg) 2019-05-05 18:10:00 Mem orial Ava Temperature Oral (F) 2019-05-05 14:15:00 97.3 F [facility] Vik Heart Rate 2019-05-05 14:15:00 [facility] Vik Respitory Rate 2019-05-05 14:15:00 Memori al Vik Systolic (mm Hg) 2019-05-05 14:15:00 Chema rial Ava Diastolic (mm Hg) 2019-05-05 14:15:00 Mem orial Ava Temperature Oral (F) 2019-05-05 10:24:00 97.3 F [facility] Vik Heart Rate 2019-05-05 10:24:00 [facility] Vik Respitory Rate 2019-05-05 10:24:00 Memori al Ava Systolic (mm Hg) 2019-05-05 10:24:00 Chema Chery Diastolic (mm Hg) 2019-05-05 10:24:00 Palomo Chery Height 2019-05-05 04:10:00 187.96 cm Katherine Chery Weight 2019-05-05 04:10:00 Katherine Chery BMI Calculated 2019-05-05 04:10:00 Kelly Ochoa Procedures Procedure Date / Time Performing Clinician Source Performed ELECTROLYTE PANEL 2019-12-20 15:59:00 Nahid Marcial MD MAGNESIUM LEVEL 2019-12-20 15:59:00 Nahid Marcial MD SERUM CREATININE 2019-12-20 15:59:00 Nahid Marcial MD BLOOD UREA NITROGEN 2019-12-20 15:59:00 Nahid Marcial MD Robles angie SERUM CREATININE 2019-12-20 15:59:00 Nahid Marcial MD .GLOMERULAR FILTRATION RATE 2019-12-20 15:59:00 Nahid Marcial MD COMPLETE BLOOD COUNT W/ 2019-12-18 14:47:00 Aditi Grant MD DIFFERENTIAL COMPREHENSIVE METABOLIC 2019-12-18 14:47:00 Aditi Grant MD PANEL MAGNESIUM LEVEL 2019-12-18 14:47:00 Aditi Grant MD Robles angie PHOSPHORUS LEVEL 2019-12-18 14:47:00 Aditi Grant MD Irving rson URIC ACID 2019-12-18 14:47:00 Aditi Grant MD Robles angie IMMUNOGLOBULIN M SERUM 2019-12-18 14:47:00 Aditi Grant FREE LAMBDA LIGHT CHAIN 2019-12-18 14:47:00 Aditi Grant MD IMMUNOFIXATION 2019-12-18 14:47:00 [facility] ELECTROPHORESIS BETA 2 MICROGLOBULIN 2019-12-18 14:47:00 Aditi Grant MD LACTATE DEHYDROGENASE 2019-12-18 14:47:00 Aditi Grant MD Results CBC 2019-12-18 14:47:00 Aditi Grant MD Roblesarielle adams MANUAL DIFFERENTIAL 2019-12-18 14:47:00 Aditi Grant MD nderson GLUCOSE LEVEL 2019-12-18 14:47:00 Aditi Grant MD Roblesarielle adams ELECTROLYTE PANEL 2019-12-18 14:47:00 Aditi Grant MD And nely SERUM CREATININE 2019-12-18 14:47:00 Aditi Grant MD Irving rsrachel .GLOMERULAR FILTRATION RATE 2019-12-18 14:47:00 Sharan Grant MD CALCIUM LEVEL TOTAL 2019-12-18 14:47:00 Aditi Grant MDrsrachel ALBUMIN LEVEL 2019-12-18 14:47:00 Aditi Grant MD Roblesarielle adams ALKALINE PHOSPHATASE 2019-12-18 14:47:00 Aditi Grant MD ALANINE AMINOTRANSFERASE 2019-12-18 14:47:00 Aditi Grant MD ASPARTATE AMINOTRANSFERASE 2019-12-18 14:47:00 Aditi Grant MD TOTAL PROTEIN 2019-12-18 14:47:00 Aditi Grant MD Robles angie FRACTIONATED BILIRUBIN 2019-12-18 14:47:00 Aditi Grant BLOOD UREA NITROGEN 2019-12-18 14:47:00 Aditi Grant MDrsrachel FREE KAPPA/FREE LAMBDA 2019-12-18 14:47:00 Aditi Grant RATIO .DR. HASSAN PROT ELEC PATH 2019-12-18 14:47:00 Aditi Grant MD REVIEW .DR. HASSAN ABA PATH REVIEW 2019-12-18 14:47:00 Aditi Grant MD PROTEIN ELECTROPHORESIS 2019-12-18 06:00:00 Aditi rGant MD URINE IMMUNOFIXATION 2019-12-18 06:00:00 Aditi Grant MD Robles angie ELECTROPHORESIS URINE URINE TOTAL PROTEIN 2019-12-18 06:00:00 Aditi Grant MDrson .TOTAL VOLUME 2019-12-18 06:00:00 Aditi Grant MD Robles angie .DR. HASSAN U PROT ELEC PATH 2019-12-18 06:00:00 Sharan Grant MD REVIEW .DR ESCOTO UIFE PATH REVIEW 2019-12-18 06:00:00 Sharan Grant MD MRI WHOLE BODY - BONE 2019-12-16 14:45:00 Aditi Grant MD MARROW COMPLETE BLOOD COUNT W/ 2019-10-08 14:28:00 Aditi Grant MD DIFFERENTIAL COMPREHENSIVE METABOLIC 2019-10-08 14:28:00 Aditi Grant MD PANEL MAGNESIUM LEVEL 2019-10-08 14:28:00 Aditi Grant MD [facility] PHOSPHORUS LEVEL 2019-10-08 14:28:00 Aditi Grant MD Irving rson URIC ACID 2019-10-08 14:28:00 Aditi Grant [facility] IMMUNOGLOBULIN M SERUM 2019-10-08 14:28:00 Aditi Grant FREE LAMBDA LIGHT CHAIN 2019-10-08 14:28:00 Aditi Grant MD IMMUNOFIXATION 2019-10-08 14:28:00 Aditi Grant [facility] ELECTROPHORESIS BETA 2 MICROGLOBULIN 2019-10-08 14:28:00 Aditi Grant MD LACTATE DEHYDROGENASE 2019-10-08 14:28:00 Aditi Grant MD Results CBC 2019-10-08 14:28:00 Aditi Garnt [facility] MANUAL DIFFERENTIAL 2019-10-08 14:28:00 Aditi Grant MD nderson GLUCOSE LEVEL 2019-10-08 14:28:00 Aditi Grant [facility] BLOOD UREA NITROGEN 2019-10-08 14:28:00 Aditi Grant MD nderson ELECTROLYTE PANEL 2019-10-08 14:28:00 Aditi Grant MD And ers SERUM CREATININE 2019-10-08 14:28:00 Aditi Grant MD Irving rson .GLOMERULAR FILTRATION RATE 2019-10-08 14:28:00 Sharan Grant MD CALCIUM LEVEL TOTAL 2019-10-08 14:28:00 Aditi Grant MD nderson ALBUMIN LEVEL 2019-10-08 14:28:00 Aditi [facility] ALKALINE PHOSPHATASE 2019-10-08 14:28:00 Aditi Grant MD ALANINE AMINOTRANSFERASE 2019-10-08 14:28:00 Aditi Grant MD ASPARTATE AMINOTRANSFERASE 2019-10-08 14:28:00 Aditi Grant MD TOTAL PROTEIN 2019-10-08 14:28:00 Aditi Grant MD FRACTIONATED BILIRUBIN 2019-10-08 14:28:00 Aditi Grant FREE KAPPA/FREE LAMBDA 2019-10-08 14:28:00 Aditi Grant RATIO .DR. HASSAN PROT ELEC PATH 2019-10-08 14:28:00 Aditi Grant MD REVIEW .DR. HASSAN ABA PATH REVIEW 2019-10-08 14:28:00 Aditi Grant MD PROTEIN ELECTROPHORESIS 2019-10-08 14:24:00 Aditi Grnat MD URINE IMMUNOFIXATION 2019-10-08 14:24:00 Aditi Grant MD ELECTROPHORESIS URINE .DR. HASSAN U PROT ELEC PATH 2019-10-08 14:24:00 Sharan Grant MD REVIEW .DR ESCOTO UIFE PATH REVIEW 2019-10-08 14:24:00 Sharan Grant MD URINE TOTAL PROTEIN 2019-10-08 14:23:00 Aditi Grant MD nderson .TOTAL VOLUME 2019-10-08 14:23:00 Aditi Grant MD COMPLETE BLOOD COUNT W/ 2019-07-09 15:31:00 Aditi Grant MD DIFFERENTIAL COMPREHENSIVE METABOLIC 2019-07-09 15:31:00 Aditi Grant MD PANEL MAGNESIUM LEVEL 2019-07-09 15:31:00 Aditi Grant MD PHOSPHORUS LEVEL 2019-07-09 15:31:00 Aditi Grant MD rson URIC ACID 2019-07-09 15:31:00 Aditi Grant MD IMMUNOGLOBULIN M SERUM 2019-07-09 15:31:00 Aditi Grant FREE LAMBDA LIGHT CHAIN 2019-07-09 15:31:00 Aditi Grant MD BETA 2 MICROGLOBULIN 2019-07-09 15:31:00 Aditi Grant MD LACTATE DEHYDROGENASE 2019-07-09 15:31:00 Aditi Grant MD Results CBC 2019-07-09 15:31:00 Aditi Grant MD Robles son MANUAL DIFFERENTIAL 2019-07-09 15:31:00 Aditi Grant MD nderson GLUCOSE LEVEL 2019-07-09 15:31:00 Aditi Grant MD Robles son BLOOD UREA NITROGEN 2019-07-09 15:31:00 Aditi Grant MD nderson ELECTROLYTE PANEL 2019-07-09 15:31:00 Aditi Grant MD And erson SERUM CREATININE 2019-07-09 15:31:00 Aditi Grant MD Irving rson .GLOMERULAR FILTRATION RATE 2019-07-09 15:31:00 Sharan Grant MD CALCIUM LEVEL TOTAL 2019-07-09 15:31:00 Aditi Grant MD nderson ALBUMIN LEVEL 2019-07-09 15:31:00 Aditi Grant MD Robles son ALKALINE PHOSPHATASE 2019-07-09 15:31:00 Aditi Grant MD ALANINE AMINOTRANSFERASE 2019-07-09 15:31:00 Aditi Grant MD ASPARTATE AMINOTRANSFERASE 2019-07-09 15:31:00 Aditi Grant MD TOTAL PROTEIN 2019-07-09 15:31:00 Aditi Grant MD Robles son FRACTIONATED BILIRUBIN 2019-07-09 15:31:00 Aditi Grant FREE KAPPA/FREE LAMBDA 2019-07-09 15:31:00 Aditi Grant RATIO .DR. AGUAYO PROT ELEC PATH 2019-07-09 15:31:00 Aditi Grant MD REVIEW .DR. AGUAYO ABA PATH REVIEW 2019-07-09 15:31:00 Aidti Grant MD .DR. AGUAYO U PROT ELEC PATH 2019-07-09 15:20:00 Sharan Grant MD REVIEW .DR. AGUAYO UIFE PATH REVIEW 2019-07-09 15:20:00 Sharan Grant MD URINE TOTAL PROTEIN 2019-07-09 15:19:00 GrantAditi hussein MD .TOTAL VOLUME 2019-07-09 15:19:00 Aditi Grant MD Robles son Cataract surgery [facility] Knee joint operation [facility] Encounters Start End Encounter Admission Attending Care Care Encounter Source Date/Time Date/Time Type Type Clinicians Facility Department ID 2019-12-16 Outpatient TARYN CENTENO [id number] 07:06:56 Prisca sanchez 2020-06-04 2020-06-04 Outpatient [facility] CAR [id number] [facility] 08:45:00 08:45:00 2020-01-25 2020-01-25 Telephone DickLINH [id number] 00:00:00 00:00:00 Ashley A FARZANA [id number] [facility] [id number] 2020-01-24 2020-01-24 Laboratory Lab, [facility] [id number] 14:45:15 15:30:48 Only [facility] [id number] [place] [id number] Professio [id number] nal [address] 2019-12-20 2019-12-20 Outpatient MAITE MARCIAL TARYN CENTENO [id number] 09:37:45 11:58:12 NAHID sanchez 2019-12-20 2019-12-20 Outpatient MAITE MARCIAL MDA MDA [id number] 10:47:51 10:47:51 NAHID sanchez 2019-12-20 2019-12-20 Outpatient MAITE MARCIAL TARYN MDA [id number] 00:00:00 00:00:00 NAHID sanchez 2019-12-18 2019-12-18 Outpatient MAITE GRANT TARYN MDA [id number] 09:29:08 23:59:00 ADITI sanchez 2019-12-16 2019-12-16 Outpatient MAITE TARYN GRANT MDA [id number] 06:25:15 06:25:15 ADITI sanchez 2019-05-04 2019-05-05 Outpatient Dhamothana maria MHPL MHPL [id number] 22:57:00 16:54:00 , Simone 41 Satish 2019-05-04 2019-05-04 Outpatient U BL MED [id number] MHBL 22:57:00 22:57:00 2013-12-06 2013-12-06 Outpatient MARIE Vargas [id number] 13:00:00 23:59:00 Anjail 00 [facility] 2013-12-06 2013-12-06 Outpatient MARIE Vargas [id number] 10:19:00 23:59:00 Anjail 00 [facility] Results Test Description Test Test Results Result Source Time Comments Comments Urine Prot ProE Path IntThe And erson Electrophoresis Path 24 follow-up urine Review 20:15:55 protein electrophoretic pattern shows no definitive evidence of a Bence-Foster protein peak.If a Bence-Foster proteinuria is suspected clinically, serum free light chain and urine immunofixation studies are recommended. Comment: KEITH HASSAN MD PHD [id number] by: KEITH HASSAN MD PHD [id number] Date/Time: 12.20.2019 15:15 PM CDT Transcribed Date/Time: 12.20.2019 15:15 PM CDTElectronically Signed By: KEITH HASSAN MD PHD [id number] on 12.20.2019 15:15 PM [facility] Urine ABA Path UIFE Path IntThe MD Jovita englandrson Review 24 follow-up urine 20:15:54 protein immunofixation electrophoretic patterns obtained with the use of antisera against IgG, IgA, IgM, bound and free Grandfalls and Lambda light chain proteins show no definitive evidence of a Bence-Foster protein band.The cannot, however, exclude the possible presence of an IgA kappa M-protein band in the beta-gamma junction region. Comment: KEITH HASSAN MD PHD [id number] by: KEITH HASSAN MD PHD [id number] Date/Time: 12.20.2019 15:15 PM CDT Transcribed Date/Time: 12.20.2019 15:15 PM CDTElectronically Signed By: KEITH HASSAN MD PHD [id number] on 12.20.2019 15:15 PM [facility] ABA Urine 2019-12-20 20:15:53 Test Item Value Reference Range Interpretation Comme nts UIFE (test code = 7916) No BJP Seen MD RothmanProtein Electrophoresis [id number] 20:15:52 Test Item Value Reference Range Interpretation Comments U Albumin % (test code = 7676) 41.2 % 30-50 U Globulin% (test code = 8523) 58.8 % 50-70 MD RothmanProtein Electrophoresis Path [id number] 15:37:06 Test Item Value Reference Range Interpretation Comments SPE Path The follow-up serum Interp (test protein code = 7285) electrophoretic MARGIE HASSAN MD pattern shows that PHD [id number] Dictated by: the M-protein peak is KEITH HASSAN MD PHD still present in the 08630Ae ctated beta-gamma junction Date/Humberto e: 12.19.2019 region. It 10:37 AM CDT demonstrates no Transcribed Date/Time: significant change 0 10:37 AM when compared to the CDTElec tronically previous M-protein Signed By : KEITH value of 0.2 g/dL on Alexis HASSAN PHD [id number] on 10/08/2019. 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 Comment: KEITH HASSAN MD PHD [id number] by: KEITH HASSAN MD PHD [id number] Date/Time: 12.19.2019 10:37 AM CDT Transcribed Date/Time: 12.19.2019 10:37 AM CDTElectronically Signed By: KEITH HASSAN MD PHD [id number] on 12.19.2019 10:37 [facility] [id number] 15:37:04 Test Item Value Reference Range Interpretation Comments ABA (test code = 5948) AK MD RothmanSerum Protein [id number] 15:37:03 Test Item Value Reference Range Interpretation Comments TOT PROTEIN (test code = 8545) 7.0 6.4- 8.3 gm/dL Albumin (test code = 1751-7) 4.3 3.6- 5.4 gm/dL Alpha 1 Globulin (test code = 0.3 0.2- 0.4 gm/dL 2865-4) Alpha 2 Globulin (test code = 1.0 0.5- 1.0 gm/dL 2868-8) Beta Globulin (test code = 2871-2) 0.7 0.5- 1.1 gm/dL Gamma Globulin (test code = 2874-6) 0.8 0.7- 1.6 gm/dL Paraprotein2 (test code = 68458-6) 0.2 0.0- 0.0 gm/dL H Lab Interpretation (test code = Abnormal 55142-5) MD Boykin Grandfalls/Free Lambda [id number] 17:23:49 Test Item Value Reference Range Interpretation Comments FKap/FLam RT (test code = 5566) 2.32 0.26-1.65 H Lab Interpretation (test code = Abnormal 73099-6) MD [facility] L[facility] Light [id number] 17:23:48 Test Item Value Reference Range Interpretation Comments Free Lambda (test code = 5630) 9.18 mg/L 5.71-26.3 MD [facility] [place] Light [id number] 17:23:47 Test Item Value Reference Range Interpretation Comments Free [place] (test code = 5629) 21.27 mg/L 3.3-19.4 H Lab Interpretation (test code = Abnormal 38501-2) MD RothmanBeta 2 [id number] 17:23:46 Test Item Value Reference Range Interpretation Comments Beta2 Microglob (test code = 5090) 2.9 mg/L 0.8-2.3 H Lab Interpretation (test code = Abnormal 19949-0) MD RothmanLkdgsncnJuO0176-29-35 17:23:45 Test Item Value Reference Range Interpretation Comments IgM (test code = 6023) 61 mg/dL 35-242 MD RothmanKssxzqfjEfH7480-66-84 17:23:44 Test Item Value Reference Range Interpretation Comments IgG (test code = 6001) 637 mg/dL 610-1616 MD RothmanUbeaumgbWxB4322-32-36 17:23:43 Test Item Value Reference Range Interpretation Comments IgA (test code = 5992) 335 mg/dL 85-499 MD RothmanStrjfqkc67ka Urine Total Iluhmao0354-97-88 16:49:55 Test Item Value Reference Range Interpretation Comments UTP (test code = 12 mg/dL <=149 Caution is advised when 7921) interpreting va lues greater than 555 mg/dL. Results requiring exten ded dilution beyond the manu facturer's recommendedlimi t may not dilute linearly due to potential matri x effect.Correlat ion with clinical contex t is recommended. UTP 24 (test code 342 = 7954) MD RothmanFractionated Zktmrilbh7355-68-27 15:49:40 Test Item Value Reference Range Interpretation Comments Bili Total (test 0.7 mg/dL <=1.2 Indocyanine Green (ICG) code = 5096) may cause false ly elevated biliru bin results. Total and direct bilirubin must not be measured from s amples containing indo cyanine green. False el evation of total bilirubin can be seen in patient s with IgG concentrations above 28 g/L. Bili Direct (test 0.2 mg/dL <=0.3 Indocyanin e Green (ICG) code = 5094) may cause false ly elevated biliru bin results. Total and direct bilirubin must not be measured from s amples containing indo cyanine green. Bili Indirect (test 0.5 mg/dL 0-0.9 code = 5095) MD RothmanGemjrzblIOB8777-54-31 15:49:37 Test Item Value Reference Range Interpretation Comments LDH (test code = 6111) 249 U/L 135-225 H Resul ts greater than 1651 U/L may no t be reliable due to matrix effect w ith extended diluti on as it exceeds the machine staker s recommended l imit. Caution should be exercised when interpreting ortiz ch values and done in conjunction wit h clinical contex t. Lab Interpretation (test Abnormal code = 15598-5) MD RothmanAlkaline Xvaxjpmqxeo0101-45-03 15:49:36 Test Item Value Reference Range Interpretation Comments Alk Phos (test code = 4768) 55 U/L 40-129 MD RothmanAlbumin Odnwp8332-23-87 15:49:35 Test Item Value Reference Range Interpretation Comments Albumin Lvl (test code = 4763) 4.4 3.5- 5.2 gm/dL MD RothmanAspartate Movypxaiccxsdopb0311-04-08 15:49:34 Test Item Value Reference Range Interpretation Comments AST (test code = 4731) 20 U/L <=40 MD RothmanUric Wgke6798-88-71 15:49:30 Test Item Value Reference Range Interpretation Comments Uric Acid (test code = 7955) 5.7 mg/dL 3.4-7 StephanTotal Bzrxplz9453-61-00 15:49:29 Test Item Value Reference Range Interpretation Comments Total Protein (test code = 7649) 7.0 g/dL 6.4-8.3 MD RothmanPhosphorus Xwkpv7688-09-87 15:49:28 Test Item Value Reference Range Interpretation Comments Phosphorus (test code = 6817) 2.2 mg/dL 2.5-4.5 L Lab Interpretation (test code = Abnormal 29908-4) MD RothmanCalcium Jqqnn0283-88-05 15:49:27 Test Item Value Reference Range Interpretation Comments Calcium Lvl (test code = 5258) 10.3 mg/dL 8.4-10.2 H Lab Interpretation (test code = Abnormal 43311-8) MD RothmanSiskwcryVOI9222-73-64 15:49:25 Test Item Value Reference Range Interpretation Comments ALT (test code = 4705) 18 U/L <=41 MD RothmanGlucose Sphlo0917-23-92 15:49:23 Test Item Value Reference Range Interpretation Comments Glucose Level (test code 244 mg/dL 70-99 H Ref erence range is = 5699) valid for fasti ng specimens only. Guidelines established by the [place] [employer] guidelines (Standards of Medical Care in Diabetes 2016. Diabetes Care 2 016; 39: S13-22) are that a fasting gluco se of greater than or equal to 126 mg /dL or a random glu cose greater than or equal to 200 mg /dL with symptoms, that are confirmed b y repeat testing on a different day, meet the criteria fo r diabetes lee us. Lab Interpretation (test Abnormal code = 63484-7) MD Camtal Wafljl4674-20-32 15:32:46 Test Item Value Reference Range Interpretation Comments Total Volume (test code 2850 mL 5230-4169 H Jere ection = 7650) date/time has b een modified to: 01:00 :00. Previous collection date/time: 09:29:00.Correc danica from 2850 mL [H I] on 12/18/19 10:32:46 CDT by Lora Quinones. Hrs Collected (test code 24 Col lection = 5928) date/time has b een modified to: 01:00 :00. Previous collection date/time: 09:29:00.Correc danica from 24 [NA] on 12/18/19 10:32: 46 CDT by Lora Quinones. Start Date (test code = 12/16/2019 Jere ection 7382) date/time has b een modified to: 01:00 :00. Previous collection date/time: 09:29:00.Correc danica from 12/16/19 0:00:00 CDT [NA ] on 12/18/19 10:32: 46 CDT by Lora Quinones. End Date (test code = 12/17/2019 Collec tion 5510) date/time has b een modified to: 01:00 :00. Previous collection date/time: 09:29:00.Correc danica from 12/17/19 0:00:00 CDT [NA ] on 12/18/19 10:32: 46 CDT by Lora Quinones. Lab Interpretation (test Abnormal code = 26201-8) MD RothmanMyfmxxveAiplejnhdnsk1754-63-90 15:17:16 Test Item Value Reference Range Interpretation Comments Neutrophil % (test code = 69.0 % 42-66 H 6491) Lymphocyte % (test code = 17.8 % 24-44 L 6194) Monocyte % (test code = 10.1 % 2-7 H 6422) Eosinophil % (test code = 1.6 % 1-4 5520) Basophil % (test code = 0.9 % 0-1 5068) IGRE % (test code = 5958) 0.6 % 0-0.4 H IG RE % count includes Metamyelocytes, Myelocytes, and Promyelocytes. Neutrophil Abs (test code 5.91 K/uL 1.7-7.3 = 6492) Lymphocyte Abs (test code 1.53 K/uL 1-4.8 = 6195) Monocyte Abs (test code = 0.87 K/uL 0.08-0.7 H 6423) Eosinophil Abs (test code 0.14 K/uL 0.04-0.4 = 5521) Basophil Abs (test code = 0.08 K/uL 0-0.1 5069) IG Abs (test code = 5954) 0.05 K/uL 0-0.04 H Lab Interpretation (test Abnormal code = 59071-1) MD Rothman.MIZ6134-88-42 15:17:10 Test Item Value Reference Range Interpretation Comments WBC (test code = 8.6 K/uL 4-11 8034) RBC (test code = 5.30 4.50- 6.00 M/uL 6932) Hgb (test code = 15.5 14.0- 18.0 gm/dL 5898) Hct (test code = 47.7 % 40-54 5860) MCV (test code = 90 fL 82-98 6222) MCH (test code = 29.2 pg 27-31 6220) MCHC (test code = 32.5 31.0- 36.0 gm/dL 6221) RDW-SD (test code = 45.6 fL 35.1-46.3 6972) RDW-CV (test code = 13.8 % 12-15.5 6971) Platelet count (test 263 K/uL 140-440 code = 6832) MPV (test code = 10.3 fL 4-10.4 6282) INRBC (test code = 0.0 % <=0.0 The INRBC (instrument 5974) NRBC) value ref lects the enumerationof n ucleated red blood cells contained in a 200uL sampleof whole blood analyzed by the instrument. Thi s value maydiffer from the NRBC value reported in a manual differential,wh ich is based on a 100 cell differential. MD RothmanMRI Whole Body - Bone Tpqylv6730-24-50 16:59:09No evidence to suggest active myeloma.. Interface, Radiology Results In - 12/16/2019 12:01 PM CDTFULL RESULT:Examination: MRI WHOLE BODY - BONE MARROW on 12/16/2019 9:45 AMClinical History: A 84-year-old male patient with multiple myeloma, on treatment with velcade/dexamethasone since 07/3018.Indication: disease evaluationComparison: PET/CT 07/03/2018Technique: Multiplanar multisequence Whole body MRIwas performed without the use of intravenous contrast, from the vertex to the toes.FINDINGS:Pattern of bone disease: Minimal (normal-appearing)Number of focal lesions: 0Soft tissue masses associated with bone lesions: AbsentInfiltration of the long bones: AbsentVertebral fractures: NoneOther fractures: NonePosterior iliac crests: No potential for sampling error: posterior iliac marrow similar to marrow elsewhere. Extramedullary disease: AbsentOther pertinent positive and negative findings:Left knee effusion.L4-L5 posterior disk protrusion and annular fissure.IMPRESSION:No evidence to suggest activemyeloma..MD RothmanUrine ABA Path Hdegto2435-83-61 23:00:38UIFE Path IntThe follow-up urine protein immunofixation electrophoretic patterns obtained with the use of antisera against IgG, IgA, IgM, bound kappa and bound lambda light chains, free kappa and free lambda light chains do not show definitive evidence of a Bence-Foster proteinuria. Comment: LIZ AGUAYO MD - [id number] by: MD Brayden KEATING [id number] Date/Time: 07.12.2019 17:00 PM [employer] MANAGER Transcribed Date/Time: 07.12.2019 17:00 PM CSTElectronically Signed By: MD Brayden KEATING [id number] on 07.12.2019 17:00 PM [facility] Urine Prot Electrophoresis Path Kcpjht2122-40-37 23:00:36 Test Item Value Reference Range Interpretation Comments U ProE Path The follow-up urine Int (test protein code = electrophoretic BROOK AGUAYO MD 7803) pattern does not show - 1018 4Dictated by: definitive evidence LIZ AGUAYO MD - of a Bence-Foster 43892Mvplvn ed protein peak. Date/Time: 17:00 PM [employer] MANAGER Transcribed Roosevelt e/Time: 07.12.2019 17:0 0 PM CSTElectronical ly Signed By: BEVE MD Brayden SAVAGE 1018 4 on 07.12.2019 17:0 0 PM MD RothmanIFE Path Dqaqnz8747-27-29 22:56:31 Test Item Value Reference Range Interpretation Comments ABA Path The follow-up serum Int (test protein code = immunofixation LIZ AGUAYO MD 5949) electrophoretic - 84023Mkgkw danica by: patterns obtained LIZ MARTIN MD - with the use of 38696Fxnwtvv d antisera against IgG, Date/T bryon: 07.12.2019 IgA, IgM, bound kappa 16:56 PM [employer] MANAGER and bound lambda Transcribed Date/Time: light chains are 07.12.2019 16:56 PM positive for an IgA CSTElect ronically kappa monoclonal Signed By: LIZ gammopathy. MD Brayden AGUAYO 1018 4 on 07.12.2019 16:5 6 PM MD RothmanProtein Electrophoresis Path Pmgvut5017-14-57 22:56:29 Test Item Value Reference Range Interpretation Comments SPE Path The follow-up serum Interp (test protein code = 7285) electrophoretic PARVEEN CAO pattern shows that MD DEDE - the M-protein peak is 18623Y ictated by: still present. It LIZ MARTIN MD - shows no significant 11061Fk ctated change when compared Date/Ti me: 07.12.2019 to the previous value 16:56 PM [employer] MANAGER on 02/11/19. Transcribed Roosevelt e/Time: 07.12.2019 16:5 6 PM CSTElectronical ly Signed By: PARVEEN AGUAYO MD - 1018 4 on 07.12.2019 16:5 6 PM AndersonCARDIAC LQZRRWE0200-40-36 14:46:00<0.02[facility]annCARD[facility]AC DLUUGKY7488-58-10 08:56:00<0.02[facility]annCHEM ZLUFK9274-95-58 08:56:00 263[facility]annCHEM ANVPM1144-02-77 08:56:0015[facility]annCHEM PANEL 2019-05-05 08:56:000.88[facility]annCHEM PVNUT3784-74-44 08:56:14549Qtpigfet HermannCHEM OSXOO3165-54-20 08:56:003.7[facility]annCHEM OWMWO0270-77-82 08:56:56104Ztfoscuo HermannCHEM QTZYI8316-65-77 08:56:0024[facility]annCHEM KTSUM6651-84-80 08:56:008.4[facility]annCHEM JGMBN4086-21-33 08:56:0079 [facility]annCHEM OCUHY9032-74-18 08:56:0010.7[facility]annHEMATOLOGY 2019-05-05 08:56:007.6[facility] RnzsfsxBHFWRGARYT6943-35-99 08:56:004.56[facility] VwppgisTOEPLZBXRZ8548-48-46 08:56:0013.8[facility] GomdwcwGXZOEFUQSS2397-21-53 08:56:0041.0[facility] FvvcyxiDRSJHQNAHC8641-87-44 08:56:0089.9[facility] Vik ZHUWIULIWW2871-09-34 08:56:00 Test Item Value Reference Range Interpretation Comments MCH (test code = MCH) 30.3 pg 27.0-31.0 [facility] LigclgbKPVDVTGWZM9647-27-73 08:56:0033.7[facility]annHEMATOLOGY 2019-05-05 08:56:0014.5[facility] JxhvdheCZBTGULNKU0283-56-24 08:56:55115Agcsrbbr TriltxwMXVRISQBTG9136-65-75 08:56:008.6[facility] SiydsxzSMIYHAAWRF5876-74-26 08:56:0067.4[facility] CgpqnqkAPYRWSBEDJ2122-69-01 08:56:0019.8[facility] FNVGIKMEYH9831-10-37 08:56:009.8[facility] IotuitaEAKJYVXXPL8495-70-97 08:56:002.0 [facility] PcyczisFOHMWBGZJI1609-32-94 08:56:001.0[facility]annHEMATOLOGY 2019-05-05 08:56:005.1[facility] EoyanldGWVGGLJIAF9500-37-25 08:56:001.5[facility] ZswwumuRQPLSXSNWY6017-69-00 08:56:000.7[facility] RgkqxebGPSUJBEGJX8910-03-66 08:56:000.2[facility] SggftjjOGORGAAMMO7381-87-63 08:56:000.1[facility] Ava LINTQW0592-63-48 08:56:00 Test Item Value Reference Range Interpretation Comments CHD Risk (test code = CHD Risk) 4.74 1 4.00-7.30 [facility] GvtcyxyRSIIIW3626-08-64 08:56:54099Wzuivjih SdwpnbnITOXUU2977-57-07 08:56:11087Wnkgnwzn UpwkjarRTLBDN3436-36-89 08:56:0034[facility] HermannLIPIDS 2019-05-05 08:56:90221Iflahfmv OslsxjdVFIFFW1770-39-03 08:56:00 Test Item Value Reference Range Interpretation Comments VLDL (test code = VLDL) 22 1 [facility]annSPECIAL YEMZQXTPG6639-93-13 08:56:008.9[facility]annCARDIAC CTMMYSE9528-49-11 08:31:00<0.02[facility]annCHEM GZSCV6319-76-95 08:31:00 267[facility]annCHEM KKJGI5205-13-45 08:31:0015[facility]annCHEM PANEL 2019-05-05 08:31:000.99[facility]annCHEM QGMNV4704-33-30 08:31:09915Vgscaelj HermannCHEM NJLHQ9074-51-16 08:31:004.1[facility]annCHEM YDAWW3253-36-97 08:31:53129Lpxvmvwy HermannCHEM KEIGN9213-50-02 08:31:0027[facility]annCHEM DQQGE8294-06-36 08:31:008.9[facility]annCHEM NSSKO2667-17-96 08:31:006.1 [facility]annCHEM QZKTD7298-83-83 08:31:003.4[facility]annCHEM PANEL 2019-05-05 08:31:0016[facility]annCHEM QGLTA4042-69-12 08:31:0010[facility]annCHEM FJDKJ7561-58-97 08:31:0053[facility]annCHEM OCRQD4954-31-51 08:31:000.7[facility]annCHEM UTMWF8820-49-99 08:31:0070[facility]annCHEM YCXSO4825-64-37 08:31:0010.1[facility]annCHEM WSGDI2273-17-40 08:31:00 Test Item Value Reference Range Interpretation Comments B/C Ratio (test code = B/C Ratio) 15 1 6-25 [facility]annCHEM ANJFY4827-14-63 08:31:002.7[facility]annCHEM PANEL 2019-05-05 08:31:00 Test Item Value Reference Range Interpretation Comments A/G Ratio (test code = A/G Ratio) 1.3 1 0.7-1.6 [facility] GnlvincTZCLJJJUKW4256-36-99 08:31:0067.3[facility]annHEMATOLOGY 2019-05-05 08:31:0020.3[facility] AszfnxhGRNZAFBJLX0021-26-98 08:31:009.1[facility] JgvbkshKSECJBOQHI5971-78-04 08:31:002.4[facility] ZexqwseNUVJBYBSAH1825-18-43 08:31:000.9[facility] NwvpxiiURADIUVERS1906-62-71 08:31:005.4[facility] UGRPHXYWBC2423-83-07 08:31:001.6[facility] QmonuduTPIQWIFMKY6933-72-01 08:31:000.7 [facility] BqvioduXVRPYDHTQQ4505-18-98 08:31:000.2[facility]annHEMATOLOGY 2019-05-05 08:31:000.1[facility] IddqlndYAIKLHBOYA4843-80-98 08:31:008.0[facility] YuisgixDPZESOCUAG2816-61-17 08:31:004.65[facility] UmbikagSRECDVUGLH0308-16-36 08:31:0014.0[facility] LhtfegpRJXLMYRUCY6445-15-87 08:31:0041.8[facility] Vik JSOETSTXEU7514-67-04 08:31:0089.8[facility] DmarjzdEPMLPDWVCA5417-04-96 08:31:00 Test Item Value Reference Range Interpretation Comments MCH (test code = MCH) 30.1 pg 27.0-31.0 [facility] IyxswttEFJAESDJDS9259-48-31 08:31:0033.5[facility]annHEMATOLOGY 2019-05-05 08:31:0014.5[facility] WhtyebiUUWJLGNVVT8312-06-82 08:31:32172Vjshxwlr LgefbjqLGKGLYPABN3009-46-44 08:31:008.2[facility] GwvzpmqMFLGZZMYAE1661-92-73 08:31:00 Test Item Value Reference Range Interpretation Comments PTT (test code = PTT) 31.5 s 22.9-35.8 [facility] JpmkddrFBYWTIYOWC2223-34-41 08:31:00 Test Item Value Reference Range Interpretation Comments INR (test code = INR) 1.15 1 0.85-1.17 [facility] ZyvhskwSGHOBGIZGH3113-83-06 08:31:00 Test Item Value Reference Range Interpretation Comments PT (test code = PT) 14.5 s 12.0-14.7 [facility] PvukbssMATVNVRAEH3688-87-80 08:31:00Non-Reactive *NA*(05/05/19 2:31 AM) [facility] OZNLW4012-98-86 08:31:00Clear (05/05/19 2:31 AM) [facility] IXZVN9076-27-67 08:31:00 Test Item Value Reference Range Interpretation Comments UA Spec Grav (test code = UA Spec 1.006 1 Grav) [facility] KRNSG9847-47-02 08:31:00 Test Item Value Reference Range Interpretation Comments UA pH (test code = UA pH) 7.0 1 5.0-8.0 [facility] STEGL7260-48-15 08:31:00Negative *NA*(05/05/19 2:31 AM) [facility] GOZMC9654-66-07 08:31:00Negative (05/05/19 2:31 AM) [facility] EIFRD6467-78-69 08:31:00Negative (05/05/19 2:31 AM) [facility] ZONSD0709-15-70 08:31:00Negative (05/05/19 2:31 AM) [facility] ZDSWG1944-34-42 08:31:13634Cspyseig Ava
[2020-06-18 22:31] LABS: Absolute Lymphocytes (CBC) 0.7 K/uL (0.7-4.9); Basophils % 0.3 % (0-1.3); Hematocrit 42.2 % (39.6-49.0); Lymphocytes % 4.5 % (15.3-44.8); MPV 8.6 fL (7.6-11.3); RBC Red Blood Cell Count 4.71 M/uL (4.33-5.43)
[2020-06-18 22:32] LABS: Protime INR 1.07
[2020-06-18] MEDS ORDERED: MUPIROCIN 2% OINT 22GM TUBE TOP ONE (22:34)
[2020-06-18 22:49] LABS: Albumin 3.5 g/dL (3.4-5.0); Bilirubin Total 0.8 mg/dL (0.2-1.0); Potassium 4.3 mmol/L (3.5-5.1); Protein, Total 6.9 g/dL (6.4-8.2)
--- NOTE | 2020-06-18 22:57 | EDPHYS ---
Physician Documentation [facility] Name: Valerio France Age: 85 yrs Sex: Male : 1935 Arrival Date: 06/18/2020 Time: 20:56 Bed 15 Private MD: SONYA Physician Jose Rothman HPI: 06/18 22:07 This 85 yrs old Male presents to ER via Wheelchair with complaints of Leg jennifer Injury. 22:07 The patient presents with a contusion, decreased range of motion, pain. The complaints jennifer affect the left quadriceps. Context: The problem was sustained at home. Onset: The symptoms/episode began/occurred today. Modifying factors: The symptoms are alleviated by remaining still, the symptoms are aggravated by movement, weight bearing. Associated signs and symptoms: The patient has no apparent associated signs or symptoms. Treatment prior to arrival includes: no previous treatment. Severity of symptoms: At their worst the symptoms were mild, moderate, in the emergency department the symptoms are unchanged. The patient has not experienced similar symptoms in the past. 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 Last tetanus immunization: < 10 years ago. - Social history:: Smoking status: Patient denies any tobacco usage or history of. - Family history:: not pertinent. ROS: 22:07 Constitutional: Negative for fever, chills, and weight loss, Eyes: Negative for injury, jennifer pain, redness, and discharge, ENT: Negative for injury, pain, and discharge, Neck: Negative for injury, pain, and swelling, Cardiovascular: Negative for chest pain, palpitations, and edema, Respiratory: Negative for shortness of breath, cough, wheezing, and pleuritic chest pain, Abdomen/GI: Negative for abdominal pain, nausea, vomiting, diarrhea, and constipation, Back: Negative for injury and pain, : Negative for injury, bleeding, discharge, and swelling, Neuro: Negative for headache, weakness, numbness, tingling, and seizure, Psych: Negative for depression, anxiety, suicide ideation, homicidal ideation, and hallucinations, Allergy/Immunology: Negative for hives, rash, and allergies, Endocrine: Negative for neck swelling, polydipsia, polyuria, polyphagia, and marked weight changes. 22:07 MS/extremity: Positive for pain, swelling, tenderness, of the left quadriceps. Exam: 22:07 Constitutional: This is a well developed, well nourished patient who is awake, alert, jennifer and in no acute distress. Head/Face: Normocephalic, atraumatic. Eyes: Pupils equal round and reactive to light, extra-ocular motions intact. Lids and lashes normal. Conjunctiva and sclera are non-icteric and not injected. Cornea within normal limits. Periorbital areas with no swelling, redness, or edema. ENT: Nares patent. No nasal discharge, no septal abnormalities noted. Tympanic membranes are normal and external auditory canals are clear. Oropharynx with no redness, swelling, or masses, exudates, or evidence of obstruction, uvula midline. Mucous membranes moist. Neck: Trachea midline, no thyromegaly or masses palpated, and no cervical lymphadenopathy. Supple, full range of motion without nuchal rigidity, or vertebral point tenderness. No Meningismus. Chest/axilla: Normal chest wall appearance and motion. Nontender with no deformity. No lesions are appreciated. Cardiovascular: Regular rate and rhythm with a normal S1 and S2. No gallops, murmurs, or rubs. Normal PMI, no JVD. No pulse deficits. Respiratory: Lungs have equal breath sounds bilaterally, clear to auscultation and percussion. No rales, rhonchi or wheezes noted. No increased work of breathing, no retractions or nasal flaring. Abdomen/GI: Soft, non-tender, with normal bowel sounds. No distension or tympany. No guarding or rebound. No evidence of tenderness throughout. Back: No spinal tenderness. No costovertebral tenderness. Full range of motion. Male : Normal genitalia with no discharge or lesions. Skin: Warm, dry with normal turgor. Normal color with no rashes, no lesions, and no evidence of cellulitis. Neuro: Awake and alert, GCS 15, oriented to person, place, time, and situation. Cranial nerves II-XII grossly intact. Motor strength 5/5 in all extremities. Sensory grossly intact. Cerebellar exam normal. Normal gait. Psych: Awake, alert, with orientation to person, place and time. Behavior, mood, and affect are within normal limits. 22:07 Musculoskeletal/extremity: Extremities: noted in the left quadriceps: decreased ROM, pain, swelling, tenderness, ROM: limited active range of motion due to pain, limited passive range of motion due to pain, Circulation is intact in all extremities. Sensation intact. Compartment Syndrome exam of affected extremity: is normal. DVT Exam: negative Homans' sign noted on exam, no appreciated bluish discoloration, no erythema, no increased warmth, pain, swelling, tenderness. Vital Signs: 21:04 BP 128 / 71; Pulse 94; Resp 16; Temp 97.8; Pulse Ox 97% ; Weight 90.72 kg; Height 5 ft. ll1 10 in. (177.80 cm); Pain 9/10; 21:04 Body Mass Index 28.70 (90.72 kg, 177.80 cm) ll1 MDM: 21:44 Patient medically screened. [facility] 22:07 Differential diagnosis: closed fracture, contusion. Data reviewed: vital signs, nurses [facility] notes, lab test result(s), radiologic studies, plain films. Data interpreted: quality assurance monitor: rate is 94 beats/min, rhythm is regular, Pulse oximetry: on room air is 97 %. Test interpretation: by ED physician or midlevel provider: plain radiologic studies. Counseling: I had a detailed discussion with the patient and/or guardian regarding: the historical points, exam findings, and any diagnostic results supporting the discharge/admit diagnosis, lab results, radiology results. Medical screen evaluation completed. [facility] emergency medical condition absent. Medical screen evaluation completed. [facility] emergency medical condition absent. 06/18 22:03 Order name: CBC with Diff [facility] 06/18 22:03 Order name: Comprehensive Metabolic Panel [facility] 06/18 22:03 Order name: PT-INR [facility] 06/18 22:36 Order name: CBC with Automated Diff; Complete Time: 22:52 EDMS 06/18 22:36 Order name: Protime (+INR); Complete Time: 22:52 EDMS 06/18 22:49 Order name: Comprehensive Metabolic Panel; Complete Time: 22:52 EDMS 06/18 22:03 Order name: Pelvis XRAY [facility] 06/18 22:03 Order name: Femur Left XRAY [facility] 06/18 22:03 Order name: Wound Care; Complete Time: 23:15 [facility] 06/18 22:55 Order name: Ice pack; Complete Time: 22:56 jennifer Administered Medications: 23:00 Drug: Insulin Regular Human 7 units {Co-Signature: sadie (Eran Rodriguez RN).} Route: Sub-Q; rv Site: abdomen; 23:15 Follow up: Response: Medication administered at discharge. rv 23:00 Drug: KeFLEX 500 mg Route: PO; rv 23:14 Follow up: Response: Medication administered at discharge. rv 23:00 Drug: [place] (7.5 mg-325 mg) 1 tabs {Note: rass 0.} Route: PO; rv 23:14 Follow up: Response: Medication administered at discharge. rv Disposition: 06/18/20 22:57 Discharged to Home. Impression: Laceration without foreign body of right hand, Contusion of left thigh - hematoma, Fall due to bumping against object, Type 2 diabetes mellitus. - Condition is Stable. - Discharge Instructions: Type 2 Diabetes Mellitus, Diagnosis, Adult, Laceration Care, Adult, Laceration Care, Adult, [id number], Type 2 Diabetes Mellitus, Diagnosis, Adult, [id number]. - Prescriptions for Keflex 500 mg Oral Capsule - take 1 capsule by ORAL route every 6 hours for 10 days; 40 capsule. Tylenol- Codeine #3 300-30 mg Oral Tablet - take 2 tablet by ORAL route every 6 hours As needed; 30 tablet. - Medication Reconciliation Form, Thank You Letter, Antibiotic Education, Prescription Opioid Use form. - Follow up: Private Physician; When: 2 - 3 days; Reason: Recheck today's complaints, Continuance of care, Re-evaluation by your physician. Follow up: Durga Mancia MD; When: 2 - 3 days; Reason: Recheck today's complaints, Re-evaluation by your physician. - Problem is new. - Symptoms have improved. Signatures: Dispatcher [employer] EDJose Thompson MD MD cha Vicente, Ronaldo RN RN Antonino Lee RN RN [facility] Eran Rodriguez RN Corrections: (The following items were deleted from the chart) 22:58 22:57 06/18/2020 22:57 Discharged to Home. Impression: Laceration without foreign body jennifer of right hand; Contusion of left thigh - hematoma; Fall due to bumping against object. Condition is Stable. Forms are Medication Reconciliation Form, Thank You Letter, Antibiotic Education, Prescription Opioid Use. Follow up: Private Physician; When: 2 - 3 days; Reason: Recheck today's complaints, Continuance of care, Re-evaluation by your physician. Follow up: Durga Mancia; When: 2 - 3 days; Reason: Recheck today's complaints, Re-evaluation by your physician. Problem is new. Symptoms have improved. [facility] 23:18 22:58 06/18/2020 22:57 Discharged to Home. Impression: Laceration without foreign body rv of right hand; Contusion of left thigh - hematoma; Fall due to bumping against object; Type 2 diabetes mellitus. Condition is Stable. Discharge Instructions: Type 2 Diabetes Mellitus, Diagnosis, Adult, Laceration Care, Adult, Laceration Care, Adult, [id number], Type 2 Diabetes Mellitus, Diagnosis, Adult, [id number]. Prescriptions for Keflex 500 mg Oral Capsule - take 1 capsule by ORAL route every 6 hours for 10 days; 40 capsule, Tylenol-Codeine #3 300-30 mg Oral Tablet - take 2 tablet by ORAL route every 6 hours As needed; 30 tablet. and Forms are Medication Reconciliation Form, Thank You Letter, Antibiotic Education, Prescription Opioid Use. Follow up: Private Physician; When: 2 - 3 days; Reason: Recheck today's complaints, Continuance of care, Re-evaluation by your physician. Follow up: Durga Mancia; When: 2 - 3 days; Reason: Recheck today's complaints, Re-evaluation by your physician. Problem is new. Symptoms have improved. [facility]
--- NOTE | 2020-06-18 22:57 | ER ---
Nurse's Notes [facility] Name: Valerio France Age: 85 yrs Sex: Male : 1935 Arrival Date: 06/18/2020 Time: 20:56 Bed 15 Private MD: Diagnosis: Laceration without foreign body of right hand;Contusion of left thigh-hematoma;Fall due to bumping against object;Type 2 diabetes mellitus Presentation: 06/18 21:04 Chief complaint: Patient states: Tripped over butane tanks he was moving at 1600 today. ll1 Left thigh pain and swelling since. Face planted. Abrasions noted to chin, nose was bleeding. Abrasions to both hands. Denies LOC. No active bleeding at this time. States he takes a blood thinner, but cant remember the name. Coronavirus screen: Client denies travel out of the [place] in the last 14 days. At this time, the client does not indicate any symptoms associated with coronavirus-19. Ebola Screen: Patient denies travel to an Ebola-affected area in the 21 days before illness onset. Initial Sepsis Screen: Does the patient meet any 2 criteria? HR > 90 bpm. No. Patient's initial sepsis screen is negative. Does the patient have a suspected source of infection? Yes: Bone or joint infection. Risk Assessment: Do you want to hurt yourself or someone else? Patient reports no desire to harm self or others. Onset of symptoms was June 18, 2020. 21:04 Method Of Arrival: Wheelchair ll1 21:04 Acuity: VICTORINO 2 ll1 Triage Assessment: 23:17 Injury Description: Laceration sustained to left arm and right hand and left rv antecubital area is superficial, not bleeding. 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 Last tetanus immunization: < 10 years ago. - Social history:: Smoking status: Patient denies any tobacco usage or history of. - Family history:: not pertinent. Screenin:00 Abuse screen: Denies threats or abuse. Denies injuries from another. Nutritional rv screening: No deficits noted. Tuberculosis screening: No symptoms or risk factors identified. 23:00 Fall Risk Fall in past 12 months (25 points). No secondary diagnosis (0 pts). No IV (0 rv pts). Ambulatory Aid- None/Bed Rest/Nurse Assist (0 pts). Gait- Normal/Bed Rest/Wheelchair (0 pts) Mental Status- Oriented to own ability (0 pts). Total Estrella Fall Scale indicates No Risk (0-24 pts). Assessment: 22:45 General: Appears comfortable, Behavior is calm, cooperative. rv 22:45 Pain: Complains of pain in left leg. Neuro: Level of Consciousness is awake, alert, rv obeys commands, Oriented to person, place, time, situation. Cardiovascular: Patient's skin is warm and dry. Respiratory: Airway is patent Respiratory effort is even, unlabored, Breath sounds are clear bilaterally. Derm: Wound noted right hand, left bicep and left antecubital area Wound is superficial. Musculoskeletal: Swelling present in left leg. Vital Signs: 21:04 BP 128 / 71; Pulse 94; Resp 16; Temp 97.8; Pulse Ox 97% ; Weight 90.72 kg; Height 5 ft. ll1 10 in. (177.80 cm); Pain 9/10; 21:04 Body Mass Index 28.70 (90.72 kg, 177.80 cm) ll1 ED Course: 20:56 Patient arrived in ED. es 21:07 Triage completed. ll1 21:08 Arm band placed on. ll1 21:21 Tien Medina RN is Primary Nurse. rr5 21:44 Jose Rothman MD is Attending Physician. jennifer 22:55 Durga Mancia MD is Referral Physician. jennifer 23:16 No provider procedures requiring assistance completed. Patient did not have IV access rv during this emergency room visit. 23:18 Patient has correct armband on for positive identification. Pulse ox on. NIBP on. rv Administered Medications: 23:00 Drug: Insulin Regular Human 7 units {Co-Signature: sadie (Eran Rodriguez RN).} Route: Sub-Q; rv Site: abdomen; 23:15 Follow up: Response: Medication administered at discharge. rv 23:00 Drug: KeFLEX 500 mg Route: PO; rv 23:14 Follow up: Response: Medication administered at discharge. rv 23:00 Drug: [place] (7.5 mg-325 mg) 1 tabs {Note: rass 0.} Route: PO; rv 23:14 Follow up: Response: Medication administered at discharge. rv Outcome: 22:57 Discharge ordered by . jennifer 23:18 Discharged to home ambulatory, with family. rv 23:18 Condition: good 23:18 Discharge instructions given to patient, Instructed on discharge instructions, follow up and referral plans. medication usage, Demonstrated understanding of instructions, follow-up care, medications, wound care, Prescriptions given X 2. 23:18 Patient left the ED. rv Signatures: Jose Rothman MD MD cha Salyer, Edna es Vicente, Ronaldo RN RN rv Tien Medina RN RN rr5 Antonino Lee RN RN 1 Eran Rodriguez RN Corrections: (The following items were deleted from the chart) 21:17 21:04 Chief complaint: Patient states: Tripped over butane tanks he was moving at 1600 ll1 today. Left thigh pain and swelling since. Face planted. Abrasions noted to chin, nose was bleeding. Abrasions to both hands. Denies LOC. No active bleeding at this time. ll1 21:17 21:04 Acuity: VICTORINO 3 ll1 ll1 21:23 21:04 Chief complaint: Patient states: Tripped over butane tanks he was moving at 1600 ll1 today. Left thigh pain and swelling since. Face planted. Abrasions noted to chin, nose was bleeding. Abrasions to both hands. Denies LOC. No active bleeding at this time. States he takes a blood thinner, but cant remember the name. ll1
[2020-06-18] MEDS ORDERED: CEPHALEXIN 250 MG CAP ONE (23:13)
[2020-06-18] MEDS ORDERED: HYDROCODONE/APAP 7.5/325 MG TAB ONE (23:14)
[2020-06-18] MEDS ORDERED: INSULIN -REGULAR HUMAN 50 UNIT/0.5 ML ML ONE (23:14)
[2020-06-18 23:38] VITALS: BP 128/71; TEMP 97.8; O2SAT 97
--- NOTE | 2020-06-19 08:41 | RAD REPORT ---
EXAM DESCRIPTION: RAD - Femur Left - 06/18/2020 10:15 pm CLINICAL HISTORY: PAIN COMPARISON: No comparisons FINDINGS: Mild osteoarthritis affects the left hip. No fracture, dislocation or AVN. Moderate arthri tic changes are seen involving the left knee. There is a small suprapatellar joint effusion. Heavy at herosclerosis.
--- NOTE | 2020-06-19 08:41 | RAD REPORT ---
EXAM DESCRIPTION: RAD - Pelvis - 06/18/2020 10:15 pm CLINICAL HISTORY: PAIN COMPARISON: Femur Left dated 06/18/2020 FINDINGS: Mild osteoarthritic changes affect both hips. No fracture, dislocation or AVN appreciated. Mild atherosclerosis.
== END 2020-06-18 23:18 | disposition home or self-care (01) ==
LOC: ER 20:51
DX: S61.411A Laceration without foreign body of right hand, initial encounter (principal); E11.9 Type 2 diabetes mellitus without complications; W18.00XA Striking against unspecified object with subsequent fall, initial encounter; Y93.9 Activity, unspecified; Y92.9 Unspecified place or not applicable
CPT/HCPCS: 36415; 72170; 80053; 85025; 85610; 96372; 99283

== ENCOUNTER 2020-08-08 01:02 | Emergency (ER) | payer OTHER ==
--- OUTSIDE RECORDS SUMMARY | 2020-08-08 01:07 | XMS REPORT | Continuity of Care Document ---
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 Item Value Reference Range Interpretation Comments ALT (test code = 18 U/L See_Comment [Automated message] The 0695) system which ge nerated this result transmit danica reference range : <=41. The reference range was not used to interpr et this result as zara l/abnormal. MD RothmanGlucose Bfgbw8449-67-31 15:49:23 Test Item Value Reference Range Interpretation Comments Glucose Level (test code 244 mg/dL 70-99 H Ref erence range is = 5699) valid for fasti ng specimens only. Guidelines established by the [place] [employer] guidelines (Standards of Medical [...] day, meet the criteria fo r diabetes mellit us. Lab Interpretation (test Abnormal code = 20075-4) MD RothmanTotal Wcwsyo3526-10-69 15:32:46 Test Item Value Reference Range Interpretation Comments Total Volume (test code 2850 mL 0969-2451 H Jere ection = 7650) date/time has [...] Quinones. Lab Interpretation (test Abnormal code = 03167-3) MD RothmanSguceuhxTqxeyqwlurac0375-14-22 15:17:16 Test Item Value Reference Range Interpretation [...] H Lab Interpretation (test Abnormal code = 18322-8) MD Rothman.CZW9213-65-04 15:17:10 Test Item Value Reference Range Interpretation Comments WBC (test code = 8.6 K/uL 4-11 8034) RBC (test code = 5.30 See_Comment [Automated message] The 6932) system which Histogen nerated this result tra nsmitted reference range : 4.50 - 6.00 M/uL. The reference range was not u sed to interpret this result as normal/abnormal . Hgb (test code = 15.5 See_Comment [Automated message] The 5898) system which Histogen nerated this result tra nsmitted reference range : 14.0 - 18.0 gm/dL. The reference range was not u sed to interpret this result as normal/abnormal . Hct (test code = 47.7 % 40-54 5860) MCV (test code = 90 fL 82-98 6222) MCH (test code = 29.2 pg 27-31 6220) MCHC (test code = 32.5 See_Comment [Automate d message] The 6221) system which Histogen nerated this result tra nsmitted reference range : 31.0 - 36.0 gm/dL. The reference range was not u sed to interpret this result as normal/abnormal . RDW-SD (test code = 45.6 fL 35.1-46.3 6972) RDW-CV (test code = 13.8 % 12-15.5 6971) Platelet count (test 263 K/uL 140-440 code = 6832) MPV (test code = 10.3 fL 4-10.4 6282) INRBC (test code = 0.0 % See_Comment The INRBC (instrument 5974) NRBC) value ref lects the enumerationof n ucleated red blood cells contained in a 200uL samp leof whole blood analyzed by the instrument. Thi s value maydiffer from the NRBC value reported in a manual differen tial,which is based on a 1 00 cell differential. [Automated message] The sy stem which generated this result transmitted ref erence range: <=0.0. T he reference range was not used to interpr et this result as normal/abnormal . MD RothmanMRI Whole Body - Bone Jzdfvo7813-87-72 16:59:09No evidence to suggest active myeloma.. Interface, [...] and annular fissure.IMPRESSION:No evidence to suggest activemyeloma..MD RothmanCARDIAC DOSFNVF8656-69-75 14:46:00<0.02[facility] NarkmsdZPCMJYRMCZ7271-30-81 08:56:00 9.8[facility] NfynxgrSBIUDUMDPP8272-63-02 08:56:002.0[facility]annHEMATOLOGY 2019-05-05 08:56:001.0[facility] BbdykofRJTKJDWXTN6279-80-80 08:56:005.1[facility] FmpvufvQEUCJWWVBX4729-04-44 08:56:001.5[facility] HfyjkbsARNMRQWNUO3467-17-87 08:56:000.7[facility] TsbbffmLYFJKYLSOG9481-40-76 08:56:000.2[facility] Vik ORRBNNXIEA8158-18-02 08:56:000.1[facility] ZauhqteCVJSOZ5514-46-19 08:56:00 Test Item Value Reference Range Interpretation Comments CHD Risk (test code = CHD Risk) 4.74 1 4.00-7.30 [facility] QeaesboPLDBSE4041-93-41 08:56:77937Oueiofdn DshmeydIHNAXO4363-63-99 08:56:42784Wsycojkd YvbpwraKSUZZU1204-79-09 08:56:0034[facility] HermannLIPIDS 2019-05-05 08:56:30963Zsgnyson GipxtfeQJZUAX2040-27-97 08:56:00 Test Item Value Reference Range Interpretation Comments VLDL (test code = VLDL) 22 1 [facility]annSPECIAL SHJZAUNKR4337-42-06 08:56:008.9[facility] HermannCARDIAC ZVDEHIS2345-46-43 08:56:00<0.02[facility] HermannCHEM WMMAY7091-12-60 08:56:00 263[facility] HermannCHEM QTBXR3208-56-04 08:56:0015[facility] HermannCHEM PANEL 2019-05-05 08:56:000.88[facility] HermannCHEM ZUOGM0722-41-82 08:56:21940Dzkqgxtf HermannCHEM WUYCQ0340-57-61 08:56:003.7[facility] HermannCHEM XXLUB3931-11-54 08:56:99842Hdwweavv HermannCHEM YTHXZ4432-93-46 08:56:0024[facility] HermannCHEM LZMRV0664-83-88 08:56:008.4[facility]annCHEM DGMQD6580-09-01 08:56:0079 [facility]annCHEM FRFVZ2478-13-40 08:56:0010.7[facility]annHEMATOLOGY 2019-05-05 08:56:007.6[facility] WvrdchkLMGNRNOVNB1927-98-72 08:56:004.56[facility] TzoapvjGOOHDEZXVD4898-18-98 08:56:0013.8[facility] PkndqoaTELFHJMICY1092-04-93 08:56:0041.0[facility] VvqoypeUQFFKXPPPL4567-74-17 08:56:0089.9[facility] Vik ASAZQTSWKT1657-56-52 08:56:00 Test Item Value Reference Range Interpretation Comments MCH (test code = MCH) 30.3 pg 27.0-31.0 [facility] EuthwhnLMIAGKEXXV2379-18-53 08:56:0033.7[facility]annHEMATOLOGY 2019-05-05 08:56:0014.5[facility] GzphgxxSGGFMFORMA7740-61-65 08:56:14637Akertwmx EjfnptvSMHWSSSOCX0299-97-50 08:56:008.6[facility] MvdjpjxOSBAXWCRXL6714-24-05 08:56:0067.4[facility] AolhvwqSSCVIWJQJL2535-61-28 08:56:0019.8[facility] CARDIAC JYIHXIL0286-53-29 08:31:00<0.02[facility] HermannCHEM BOMRU2515-16-89 08:31:30648Ppnajidw HermannCHEM CJZTA1204-97-08 08:31:0015[facility] HermannCHEM LIUWS6304-72-80 08:31:000.99[facility]annCHEM ATNPE4236-38-45 08:31:28406 [facility]annCHEM WZPUC0054-70-83 08:31:004.1[facility] HermannCHEM PANEL 2019-05-05 08:31:48261Baazyurl HermannCHEM HTKPD5756-54-69 08:31:0027[facility]annCHEM WGPJK7671-49-69 08:31:008.9[facility]annCHEM JOVTL0998-65-77 08:31:006.1[facility]annCHEM HNCQQ2591-99-54 08:31:003.4[facility]annCHEM ILLWC8341-76-43 08:31:0016[facility]annCHEM ZHYDS7733-74-69 08:31:0010 [facility]annCHEM OADIT5519-93-07 08:31:0053[facility] HermannCHEM PANEL 2019-05-05 08:31:000.7[facility] HermannCHEM QKBHT7091-36-50 08:31:0070[facility]annCHEM NKQZQ6029-83-74 08:31:0010.1[facility] HermannCHEM FGSCQ0617-84-00 08:31:00 Test Item Value Reference Range Interpretation Comments B/C Ratio (test code = B/C Ratio) 15 1 6-25 [facility]annCHEM IHWXK8776-73-50 08:31:002.7[facility] HermannCHEM PANEL 2019-05-05 08:31:00 Test Item Value Reference Range Interpretation Comments A/G Ratio (test code = A/G Ratio) 1.3 1 0.7-1.6 [facility] XlilkuoSSNIQVREAB2603-38-52 08:31:0067.3[facility]annHEMATOLOGY 2019-05-05 08:31:0020.3[facility] ZzpwznyZIYBKJOBGT6631-97-79 08:31:009.1[facility] BfnnbdnXWWVXYSEUE9035-35-66 08:31:002.4[facility] RyyumzlPHJLLNGIKW5962-58-67 08:31:000.9[facility] FlawwyhIREKHAYQWW9621-85-58 08:31:005.4[facility] XALNJIGDBA4039-55-56 08:31:001.6[facility] WktiruqIFZXRYRDFW7238-67-29 08:31:000.7 [facility] UwfeehyTXWUSCPQSS5654-71-72 08:31:000.2[facility]annHEMATOLOGY 2019-05-05 08:31:000.1[facility] CiehcmhJHFXGGRWRO9583-23-00 08:31:008.0[facility] UqdvkwdPUCJMUKSQR4835-39-88 08:31:004.65[facility] YiwokosOYIUXQQMUP0660-15-72 08:31:0014.0[facility] OvkqrpcAMFKKQXDRJ4280-21-35 08:31:0041.8[facility] Vik ALWUQGMZWK9432-05-75 08:31:0089.8[facility] LmdalklVIFGESWVXB7446-53-13 08:31:00 Test Item Value Reference Range Interpretation Comments MCH (test code = MCH) 30.1 pg 27.0-31.0 [facility] JradibrLXTEHBBZBT8390-86-74 08:31:0033.5[facility] HermannHEMATOLOGY 2019-05-05 08:31:0014.5[facility] JotnlelEEWIOECRRG9989-00-73 08:31:24462Xdzaeupi HwdoxgbUZFYMFTFEN4001-49-01 08:31:008.2[facility] UtwcklqQIXDAMIFNX4702-18-10 08:31:00 Test Item Value Reference Range Interpretation Comments PTT (test code = PTT) 31.5 s 22.9-35.8 [facility] ShluwlvHTIYJLAKPL0023-18-64 08:31:00 Test Item Value Reference Range Interpretation Comments INR (test code = INR) 1.15 1 0.85-1.17 [facility] MfiqvstGEUXULAZMM7915-76-33 08:31:00 Test Item Value Reference Range Interpretation Comments PT (test code = PT) 14.5 s 12.0-14.7 [facility] WqzfxxuYCRFABQIYM1657-36-17 08:31:00Non-Reactive *NA*(05/05/19 2:31 AM) [facility] XUVWG3337-36-20 08:31:00Clear (05/05/19 2:31 AM) [facility] GVCWA9519-12-47 08:31:00 Test Item Value Reference Range Interpretation Comments UA Spec Grav (test code = UA Spec 1.006 1 Grav) [facility] VRHOB4290-22-05 08:31:00 Test Item Value Reference Range Interpretation Comments UA pH (test code = UA pH) 7.0 1 5.0-8.0 [facility] NIFRO8213-35-56 08:31:00Negative *NA*(05/05/19 2:31 AM) [facility] TDRRH0931-01-82 08:31:00Negative (05/05/19 2:31 AM) [facility] KWLMK9494-98-46 08:31:00Negative (05/05/19 2:31 AM) [facility] GGJMC8558-85-59 08:31:00Negative (05/05/19 2:31 AM) [facility] YVFQL8894-30-33 08:31:19307Dydinoze [facility]
[2020-08-08] MEDS ORDERED: ONDANSETRON 4 MG/2 ML VIAL ONE (01:47)
[2020-08-08] MEDS ORDERED: NA CHLORIDE 0.9% 1,000 ML ONE (01:47)
[2020-08-08 01:52] LABS: Absolute Lymphocytes (CBC) 0.6 K/uL (0.7-4.9); Basophils % 0.5 % (0-1.3); Hematocrit 47.1 % (39.6-49.0); Lymphocytes % 5.1 % (15.3-44.8); MPV 8.7 fL (7.6-11.3); RBC Red Blood Cell Count 5.21 M/uL (4.33-5.43)
[2020-08-08 02:01] LABS: Albumin 3.9 g/dL (3.4-5.0); Bilirubin Direct 0.2 mg/dL (0-0.2); Bilirubin Total 0.7 mg/dL (0.2-1.0); Potassium 3.8 mmol/L (3.5-5.1); Protein, Total 7.7 g/dL (6.4-8.2)
[2020-08-08 02:28] LABS: SARS-COV-2 RT PCR NEGATIVE (NEGATIVE)
[2020-08-08 02:37] LABS: Urine Blood NEGATIVE (NEG); Urine Glucose 2+ (NEG); Urine Protein NEGATIVE (NEG); Urine Specific Gravity 1.025 (1.005-1.030)
[2020-08-08 02:54] LABS: Urine Bacteria <20 /HPF (NONE SEEN); Urine RBC NONE SEEN /HPF (NONE SEEN)
--- NOTE | 2020-08-08 04:52 | ER ---
Nurse's Notes [facility] Name: Valerio France Age: 85 yrs Sex: Male : 1935 Arrival Date: 08/08/2020 Time: 01:03 Bed 5 Private MD: Diagnosis: Dehydration;Dizziness and giddiness Presentation: 08/08 01:20 Chief complaint: Patient's son or daughter states: pt was found by son with his head on bb the table and vomiting tonight pt states he is feeling light-headed denies pain. Coronavirus screen: At this time, the client does not indicate any symptoms associated with coronavirus-19. Ebola Screen: No symptoms or risks identified at this time. Initial Sepsis Screen: Does the patient meet any 2 criteria? No. Patient's initial sepsis screen is negative. Does the patient have a suspected source of infection? No. Patient's initial sepsis screen is negative. Risk Assessment: Do you want to hurt yourself or someone else? Patient reports no desire to harm self or others. 01:20 Method Of Arrival: Wheelchair bb 01:20 Acuity: VICTORINO 3 bb 05:26 Onset of symptoms was August 08, 2020. rr5 Historical: - Allergies: 01:23 No Known Allergies; bb - PMHx: 01:23 Diabetes - NIDDM; multiple myleoma; TIA; bb - PSHx: 01:23 Knee surgery; bb - Immunization history:: Adult Immunizations up to date. - Social history:: Smoking status: unknown. - Family history:: not pertinent. - Hospitalizations: : No recent hospitalization is reported. Screenin:41 Abuse screen: Denies threats or abuse. Denies injuries from another. Nutritional rr5 screening: No deficits noted. Tuberculosis screening: No symptoms or risk factors identified. Fall Risk IV access (20 points). Total Estrella Fall Scale indicates No Risk (0-24 pts). Assessment: 01:43 General: Appears uncomfortable, Behavior is calm, cooperative, appropriate for age. ea Pain: Denies pain. Neuro: Level of Consciousness is awake, alert, obeys commands, Oriented to person, place. Cardiovascular: Patient's skin is warm and dry. Respiratory: Airway is patent Respiratory effort is even, unlabored, Respiratory pattern is regular, symmetrical. Derm: Skin is pink, warm \T\ dry. 02:29 Reassessment: Patient appears in no apparent distress at this time. Patient is alert, rr5 oriented x 3, equal unlabored respirations, skin warm[facility]dry[facility] Reassessment: Patient and/or family updated on plan of care and expected duration. Pain ea level reassessed. Patient is alert, oriented x 3, equal unlabored respirations, skin warm/dry/pink. 05:14 Reassessment: Patient appears in no apparent distress at this time. Patient is alert, rr5 oriented x 3, equal unlabored respirations, skin warm/dry/pink. able to walk in the hallway, reassess by ED Provider, spoke to family member explained the result and plan of care. Patient states feeling better. Patient states symptoms have improved. 05:25 Reassessment: Patient appears in no apparent distress at this time. discharge rr5 instruction given and explained without complaints made Patient states feeling better. Patient states symptoms have improved. Vital Signs: 01:20 Weight 90.72 kg (R); Height 6 ft. 0 in. (182.88 cm) (R); Pain 0/10; bb 01:34 BP 160 / 85; Pulse 79; Resp 18 S; Temp 97.5(TE); Pulse Ox 97% on R/A; bb 02:28 BP 146 / 85; Pulse 79; Resp 16; Pulse Ox 98% ; rr5 04:14 BP 132 / 75; Pulse 77; Resp 18; Pulse Ox 95% ; ea 05:14 BP 148 / 77; Pulse 70; Resp 17; Pulse Ox 96% ; rr5 01:20 Body Mass Index 27.12 (90.72 kg, 182.88 cm) bb ED Course: 01:03 Patient arrived in ED. cl3 01:13 Kevin Kang MD is Attending Physician. rn 01:23 Triage completed. bb 01:23 Arm band placed on Patient placed in an exam room, on a stretcher, on alarm security or surveillance monitor, bb on pulse oximetry. Family accompanied patient. 01:29 Tien Medina RN is Primary Nurse. rr5 01:40 Inserted saline lock: 20 gauge in right forearm, using aseptic technique. Blood rr5 collected. 01:41 COVID swab sent to lab. Flu and/or RSV swab sent to lab. rr5 01:43 Patient has correct armband on for positive identification. Bed in low position. Call ea light in reach. Side rails up X 1. ekg monitor tech on. Pulse ox on. NIBP on. 02:28 Urine collected: clean catch specimen, clear. rr5 02:37 CT Head Brain wo Cont In Process Unspecified. EDMS 02:37 CT Abd/Pelvis - IV Contrast Only In Process Unspecified. EDMS 05:25 No provider procedures requiring assistance completed. IV discontinued, intact, rr5 bleeding controlled, No redness/swelling at site. Pressure dressing applied. Administered Medications: 01:40 Drug: NS 0.9% 500 ml Route: IV; Rate: bolus; Site: right forearm; rr5 03:00 Follow up: Response: No adverse reaction; IV Status: Completed infusion; IV Intake: rr5 500ml 01:41 Drug: Zofran (Ondansetron) 4 mg Route: IVP; Site: right forearm; rr5 02:13 Follow up: Response: No adverse reaction ea 05:00 Drug: Meclizine 50 mg Route: PO; rr5 05:26 Follow up: Response: No adverse reaction rr5 Intake: 03:00 IV: 500ml; Total: 500ml. rr5 Output: 03:02 Urine: 600ml (Voided); Total: 600ml. rr5 Outcome: 04:52 Discharge ordered by . rn 05:25 Discharged to home via wheelchair, with family. rr5 05:25 Condition: stable 05:25 Discharge instructions given to patient, family, Instructed on discharge instructions, follow up and referral plans. medication usage, Demonstrated understanding of instructions, follow-up care, medications, Prescriptions given X 2. 05:27 Patient left the ED. rr5 Signatures: Dispatcher [employer] Brinda Rees RN RN bb Nieto, Roman, MD MD rn Antunez, Elena, RN RN ea Roque, Raymond, RN RN rr5 Keri Lee cl3
--- NOTE | 2020-08-08 04:53 | EDPHYS ---
Physician Documentation [facility] Name: Valerio France Age: 85 yrs Sex: Male : 1935 Arrival Date: 08/08/2020 Time: 01:03 Bed 5 Private MD: ED Physician Kevin Kang HPI: 08/08 01:36 This 85 yrs old Male presents to ER via Wheelchair with complaints of rn Dizziness, Weakness. 01:36 The patient presents with dizziness, lightheadedness. Onset: The symptoms/episode rn began/occurred last night. Modifying factors: The symptoms are alleviated by nothing, the symptoms are aggravated by nothing. Associated signs and symptoms: Pertinent positives: nausea, vomiting, Pertinent negatives: ataxia, chest pain, diaphoresis, head injury, numbness, seizure, shortness of breath. Severity of symptoms: At their worst the symptoms were moderate in the emergency department the symptoms have improved. The patient has not experienced similar symptoms in the past. Reports last night after dinner, found by son not feeling well, head on table, reported feeling dizzy and has had several episodes of non-bloody emesis. No diarrhea. No chest pain/sob/abd pain/headache. no focal weakness or numbness/tingling. No syncope.. Historical: - Allergies: :23 No Known Allergies; bb - PMHx: 01:23 Diabetes - NIDDM; multiple myleoma; TIA; bb - PSHx: 01:23 Knee surgery; bb - Immunization history:: Adult Immunizations up to date. - Social history:: Smoking status: unknown. - Family history:: not pertinent. - Hospitalizations: : No recent hospitalization is reported. ROS: 01:36 Constitutional: Negative for fever, chills, and weight loss, Eyes: Negative for injury, rn pain, redness, and discharge, Neck: Negative for injury, pain, and swelling, Cardiovascular: Negative for chest pain, palpitations, and edema, Respiratory: Negative for shortness of breath, cough, wheezing, and pleuritic chest pain, Abdomen/GI: + nausea/vomiting Back: Negative for injury and pain, : Negative for injury, bleeding, discharge, and swelling, MS/Extremity: Negative for injury and deformity, Skin: Negative for injury, rash, and discoloration, Neuro: Negative for headache, focal weakness, numbness, tingling, and seizure. 01:36 All other systems are negative. Exam: 01:36 Constitutional: This is a well developed, well nourished patient who is awake, alert, rn and in no acute distress. Head/Face: Normocephalic, atraumatic. Eyes: Pupils equal round and reactive to light, extra-ocular motions intact. Periorbital areas with no swelling, redness, or edema. ENT: MMM Cardiovascular: Regular rate and rhythm. No pulse deficits. Respiratory: No increased work of breathing, no retractions or nasal flaring. Abdomen/GI: Soft, non-tender Skin: Warm, dry MS/ Extremity: Pulses equal, no cyanosis. Neurovascular intact. Full, normal range of motion. Equal circumference. Neuro: Awake and alert, GCS 15, oriented to person, place, time, and situation. Cranial nerves II-XII grossly intact. Motor strength 4/5 in all extremities. Sensory grossly intact. Vital Signs: 01:20 Weight 90.72 kg (R); Height 6 ft. 0 in. (182.88 cm) (R); Pain 0/10; bb 01:34 BP 160 / 85; Pulse 79; Resp 18 S; Temp 97.5(TE); Pulse Ox 97% on R/A; bb 02:28 BP 146 / 85; Pulse 79; Resp 16; Pulse Ox 98% ; rr5 04:14 BP 132 / 75; Pulse 77; Resp 18; Pulse Ox 95% ; ea 05:14 BP 148 / 77; Pulse 70; Resp 17; Pulse Ox 96% ; rr5 01:20 Body Mass Index 27.12 (90.72 kg, 182.88 cm) bb MDM: 01:13 Patient medically screened. rn 04:40 ED course: Pt feels much better, no acute findings in ct head/abdomen/pelvis, no acute rn findings in urine, COVID neg, UA neg. Will ambulate and reeval. . 04:50 Differential diagnosis: cardiac arrhythmia, CVA, generalized weakness, rn hyperventilation, hypovolemia, idiopathic dizziness, TIA, vertigo. Data reviewed: vital signs, nurses notes, lab test result(s), EKG, radiologic studies, CT scan, and as a result, I will discharge patient. Counseling: I had a detailed discussion with the patient and/or guardian regarding: the historical points, exam findings, and any diagnostic results supporting the discharge/admit diagnosis, lab results, radiology results, the need for outpatient follow up, to return to the emergency department if symptoms worsen or persist or if there are any questions or concerns that arise at home. Response to treatment: the patient's symptoms have markedly improved after treatment, the patient's condition has returned to base line, the patient is now symptom free, and as a result, I will discharge patient. Special discussion: I discussed with the patient/guardian in detail that at this point there is no indication for admission to the hospital. It is understood, however, that if the symptoms persist or worsen the patient needs to return immediately for re-evaluation. Based on the history and exam findings, there is no indication for further emergent testing or inpatient evaluation. I discussed with the patient/guardian the need to see the primary care provider for further evaluation of the symptoms. ED course: Pt ambulatory around ER, feels better. Still no reason found for vomiting unless a bit of vertigo. Will dc home with meclizine and zofran prn, along with pcp f/u. Had long discussion with family and patient, could admit for MRI, but given symptoms are better, they don't really see a point in keeping him. Pt states feels back to normal and would like to go home.. 08/08 01:25 Order name: Basic Metabolic Panel rn 08/08 01:25 Order name: CBC with Diff rn 08/08 01:25 Order name: Hepatic Function rn 08/08 01:25 Order name: Lipase rn 08/08 01:25 Order name: Urine Microscopic Only rn 08/08 01:26 Order name: Basic Metabolic Panel; Complete Time: 02:16 EDAR 08/08 01:26 Order name: CBC with Automated Diff; Complete Time: 02:16 EDAR 08/08 01:26 Order name: Liver (Hepatic) Function; Complete Time: 02:16 EDAR 08/08 01:26 Order name: Lipase; Complete Time: 02:16 EDAR 08/08 01:26 Order name: Urine Microscopic Only; Complete Time: 04:28 EDAR 08/08 02:29 Order name: COVID-19/FLU A+B; Complete Time: 02:53 EDAR 08/08 02:31 Order name: Urine Dipstick--Ancillary (enter results); Complete Time: 02:53 mw2 08/08 01:25 Order name: IV Saline Lock; Complete Time: 01:51 rn 08/08 01:25 Order name: Labs collected and sent; Complete Time: 01:51 rn 08/08 01:25 Order name: Urine Dipstick-Ancillary (obtain specimen); Complete Time: 02:32 rn 08/08 01:25 Order name: CT Head Brain wo Cont rn 08/08 01:25 Order name: CT Abd/Pelvis - IV Contrast Only rn Administered Medications: 01:40 Drug: NS 0.9% 500 ml Route: IV; Rate: bolus; Site: right forearm; rr5 03:00 Follow up: Response: No adverse reaction; IV Status: Completed infusion; IV Intake: rr5 500ml 01:41 Drug: Zofran (Ondansetron) 4 mg Route: IVP; Site: right forearm; rr5 02:13 Follow up: Response: No adverse reaction ea 05:00 Drug: Meclizine 50 mg Route: PO; rr5 05:26 Follow up: Response: No adverse reaction rr5 Disposition: 08/08/20 04:52 Discharged to Home. Impression: Dehydration, Dizziness and giddiness. - Condition is Stable. - Discharge Instructions: Dehydration, Adult, Dizziness, Vertigo. - Prescriptions for Zofran ODT 4 mg Oral tablet,disintegrating - place 1 tablet by TRANSLINGUAL route every 8 hours As needed; 20 tablet. Meclizine 25 mg Oral Tablet - take 1 tablet by ORAL route every 8 hours As needed; 30 tablet. - Medication Reconciliation Form, Thank You Letter, Antibiotic Education, Prescription Opioid Use form. - Follow up: Private Physician; When: 2 - 3 days; Reason: Recheck today's complaints, Re-evaluation by your physician. - Problem is new. - Symptoms have improved. Signatures: Dispatcher [employer] EDMS Brinda Vizcaino RN RN bb Nieto, Roman, MD MD rn Roque, Raymond, RN RN rr5 Liliane Tom RN, ea Corrections: (The following items were deleted from the chart) 01:47 01:26 Influenza Screen (A \T\ B)+BA.LAB.BRZ ordered. EDMS EDMS 01:48 01:26 CORONAVIRUS+MR.LAB.BRZ ordered. EDMS EDMS 05:27 04:52 08/08/2020 04:52 Discharged to Home. Impression: Dehydration; Dizziness and rr5 giddiness. Condition is Stable. Discharge Instructions: Dehydration, Adult, Dizziness. Prescriptions for Zofran ODT 4 mg Oral tablet,disintegrating - place 1 tablet by TRANSLINGUAL route every 8 hours As needed; 20 tablet. and Forms are Medication Reconciliation Form, Thank You Letter, Antibiotic Education, Prescription Opioid Use. Follow up: Private Physician; When: 2 - 3 days; Reason: Recheck today's complaints, Re-evaluation by your physician. Problem is new. Symptoms have improved. rn
[2020-08-08] MEDS ORDERED: MECLIZINE HCL 12.5 MG TAB ONE (05:28)
[2020-08-08 05:35] VITALS: TEMP 97.5
[2020-08-08 05:39] VITALS: BP 148/77; O2SAT 96
--- NOTE | 2020-08-08 20:31 | RAD REPORT ---
EXAM DESCRIPTION: CT Abdomen and Pelvis With Intravenous Contrast CLINICAL HISTORY: The patient is 85 years old and is Male; vomiting TECHNIQUE: Axial computed tomography images of the abdomen and pelvis with intravenous contrast. S agittal and coronal reformatted images were created and reviewed. This CT exam was performed using one or more of the following dose reduction techniques: automated exposure control, adjustment of t he mA and/or kV according to patient size, and/or use of iterative reconstruction technique. COMPARISON: No relevant prior studies available. FINDINGS: Lung bases: Scarring in the lung bases. ABDOMEN: Liver: Unremarkable. No mass. Gallbladder and bile ducts: Unremarkable. No calcified stones. No ductal dilation. Pancreas: Pancreatic atrophy. No ductal dilation. Spleen: Unremarkable. No splenomegaly. Adrenals: Unremarkable. No mass. Kidneys and ureters: Bilateral perinephric stranding which is likely chronic. No hydronephrosis. Stomach and bowel: Unremarkable. No obstruction. No mucosal thickening. PELVIS: Appendix: The appendix is normal. Bladder: Unremarkable. No mass. Reproductive: Unremarkable as visualized. ABDOMEN and PELVIS: Intraperitoneal space: Unremarkable. No free air. No significant fluid collection. Bones/joints: Osteopenia. No acute fracture. No dislocation. Soft tissues: Fat and fluid-containing left inguinal hernia. Vasculature: Scattered atherosclerotic vascular calcifications. No abdominal aortic aneurysm. Lymph nodes: Unremarkable. No enlarged lymph nodes. IMPRESSION: No acute findings in the abdomen or pelvis. Electronically signed by: Elliot Mendez MD 08/08/2020 3:17 AM ONLINE MERCHANDISING MANAGER Due to temporary technical issues with the PACS/Fluency reporting system, reports are being signed by the in house radiologists without review as a courtesy to insure prompt reporting. The interpreting radiologist is fully responsible for the content of the report.
--- NOTE | 2020-08-08 21:15 | RAD REPORT ---
EXAM DESCRIPTION: CT HEAD WITHOUT IV CONTRAST CLINICAL HISTORY: DIZZINESS TECHNIQUE: Contiguous axial CT images obtained through the brain without IV contrast. Coronal and sa gittal reformatted images were provided. This exam was performed according to our departmental dose-optimization program, which includes autom ated exposure control, adjustment of the mA and/or kV according to patient size and/or use of iterati ve reconstruction technique. COMPARISON: 05/04/2019 FINDINGS: Brain: Mild cerebral atrophy. Bilateral periventricular and subcortical white matter low-a ttenuation most compatible with chronic microvascular angiopathy without significant interval change. No focal mass effect. Herrera-white matter differentiation is within normal limits. No hemorrhage. Ventricles: No ventriculomegaly or midline shift. Extra-axial spaces: No extra-axial collection or hemorrhage. Paranasal sinuses and mastoid air cells: Well-aerated Vessels: There is atherosclerotic disease of the internal carotid arteries bilaterally. Bones: Unremarkable Soft tissues: Unremarkable IMPRESSION: 1. No acute hemorrhage, focal mass or large territory infarction. 2. Other findings as above. Electronically signed by: Kim Wong MD 08/08/2020 2:47 AM PUBLIC SAFETY DIRECTOR Due to temporary technical issues with the PACS/Fluency reporting system, reports are being signed by the in house radiologists without review as a courtesy to insure prompt reporting. The interpreting radiologist is fully responsible for the content of the report.
== END 2020-08-08 05:27 | disposition home or self-care (01) ==
LOC: ER 01:02
DX: E86.0 Dehydration (principal); Z20.822 Contact with and (suspected) exposure to COVID-19
CPT/HCPCS: 85025; 80048; 36415; 80076; 83690; 0240U; 70450; 74177; Q9967; J7030; J2405; 81003; 81015; 82565; 96361; 96374; 99284

== ENCOUNTER 2020-10-13 11:47 | Emergency (ER) | payer OTHER ==
--- OUTSIDE RECORDS SUMMARY | 2020-10-13 11:51 | XMS REPORT | Continuity of Care Document ---
:1935 Author Organization [facility] t Address [address] [place] [address] Care Team Providers Name Role Phone Alexis MARCIAL Primary Care Physician Unavailable JOHN CORDOVA Attending Clinician Unavailable Alessandra MURRAY Attending Clinician Dick JUSTICE, A Attending Clinician Lab, Fam Pob I Attending Clinician Unavailable Alexis MARCIAL Attending Clinician Unavailable Will MURRAY M Attending Clinician Jovita GRANT Attending Clinician Unavailable Benjamín MORRIS, A Attending Clinician Satish Rodrigues Attending Clinician Aiden Vargas Attending Clinician Satish Rodrigues Admitting Clinician Payers Payer Name Policy Type Policy Number Effective Date Expiration Date S oursri [employer]ET[employer] MEDICARE [id number] 2013 PPO 00:00:00 MEDICARE [id number] 2013 2013 ADVANTAGE GENERIC 00:00:00 00:00:00 Problems Condition Condition Condition Status Onset Resolution Last Treating Co mments Source Name Details Category Date Date Treatment Clinician Date TIA Diagnosis Active 2018-052019-05-10 Mem oria 2-07 22:06:00 l TIA 00:00: Carson 00 Active 05/04/2019 [facility] Drug-induc 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 00:00: n athy athy 00 History of History of Disease Active M D cerebrovas cerebrovas 02-19 An derso cular cular 00:00: n accident accident 00 Multiple Multiple Disease Active myeloma myeloma 2-28 Anderso 00:00: n 00 Renal Renal Disease Active insufficie insufficie 2- An derso ncy ncy 00:00: n 00 [...] 00:01: Vik CVA 00 Active 11/25/2013 ERNST Chery STROKE Diagnosis Active 2013-12-06 Mem oria 11-25 13:21:00 l STROKE 00:00: Carson 00 Active 11/25/2013 ERNST BURDEN Hypertensi Problem Resolve 2019-05-07 Memoria ve d 22:42:21 l disorder, Vik systemic Hypertensi arterial ve (disorder) disorder, systemic arterial (disorder) Resolved Problem 05/07/2019 Alexis Newman [facility] OPID Vik Transient Problem Resolve 2019-05-07 M emoria ischemic d 22:42:21 l attack Carson (disorder) Transient ischemic attack (disorder) Resolved Problem 05/07/2019 Alexis Newman [facility], SUZETTE Chery Type II Problem Active 2019-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 22:42:21 l mellitus Type II Edna nn uncontroll diabetes ed mellitus (finding) uncontroll ed (finding) Active Problem 05/07/2019 ERNST Anderson TRANSIENT Diagnosis Active 2019-05-10 Memoria CEREBRAL 22:06:00 l ISCHEMIC Carson ATTACK, TRANSIENT UNSP CEREBRAL ISCHEMIC ATTACK, UNSP Active [facility] Diabetes Problem Resolve 2019-05-07 Me moria mellitus d 22:42:21 l (disorder) Diabetes He rmann mellitus (disorder) Resolved Problem 05/07/2019 Alexis Newman [facility], SUZETTE Chery Allergies, Adverse Reactions, Alerts Allergy Allergy Status Severity Reaction(s) Onset Inactive Treating Comm ents Source Name Type Date Date Clinician No Known No Known Active Memori a Medicati Medicati l on on Vik Allergie Allergie s s Family History Family Member Diagnosis Comments Start Date Stop Date Source Natural father -Genitourinary (Bladder, MD Rothman Kidney, Prostate, Testicle) Social History Social Habit Start Date Stop Date Quantity Comments Source History of Cigar Smoker MD Rothamn tobacco use Sex Assigned At MD Espinosa on Social History 2019-05-05 2019-05-05 [facility] glenfilemon 04:07:57 04:07:57 Tobacco use and 2018-03-23 2018-03-23 [...] Date Medication? Clinician (SIG) Name Name levothyroxi Yes 75ug Take 75 MD eric 7-24 mcg by Anderso (SYNTHROID, 14:58: mouth n LEVOTHROID) 25 daily. 75 mcg tablet amLODIPine- 2020-0 Yes Take by MD benazepril 7-24 mouth at [facility] so (LOTREL) [...] per day with tablet meals. aspirin 81 2020-0 2020- No 81mg Take 81 mg MD mg EC 7- 07-24 by mouth Anderso tablet 14:57: 00:00 daily. n 32 :00 atorvastati 2018-05 No Notes: Chema zana n 2-09 (Same as: l 03:00: Lipitor) Carson atorvastati 2018-05 Yes 20 mg = 1 M emoria n 20 MG 2-08 tab, PO, l Oral Tablet 22:04: Bedtime, # Vik [Lipitor] 00 30 tab, 0 Refill(s), Pharmacy: [id number] Metformin 2018-05 Yes 1,000 mg = Me moria hydrochlori 2-08 1 tab, PO, l de 1000 MG 22:04: BID-Meals, H ermann Oral Tablet 00 # 30 tab, 0 Refill(s), Pharmacy: [id number] canaglifloz 2018-05 Yes 100 mg = 1 Memoria in 100 MG 2-08 tab, PO, l Oral Tablet 22:04: Before Herm filemon [Invokana] 00 Breakfast, # 30 tab, 2 Refill(s), Pharmacy: [id number] pantoprazol 2018-05 No Notes: For Memoria e 2-08 IV push l 15:00: reconstitu Vik 00 te with 10 ml 0.9% sodium [...] Notes: Memoria 2-08 porcine l 06:00: heparin Vik 00 Aspirin 81 2018-05 No Notes: Do Me moria MG Enteric 2-08 not crush l Coated 05:16: or chew. Vik Tablet 00 (Same As: Ecotrin) Dextrose 2018-05 No 12.5 gm, Memor ia 50% Syringe 2-08 25 mL, l (D50W) 05:07: Route: Carson 00 IVP, Drug Form: INJ, Dosing Weight 86.477, kg, PRN, PRN Blood Glucose Results, Start date: 05/04/19 23:07:00 EC TEACHER, Duration: 30 day, Stop date: 06/03/19 23:06:00 EC TEACHER, 0 Glucagon 2018-05 No 1 mg, Memoria 2-08 Route: IM, l 05:07: Drug form: Carson 00 PDR/INJ, PRN, Dosing Weight 86.477, kg, PRN Blood Glucose Results, Start date: 05/04/19 23:07:00 EC TEACHER, Duration: 30 day, Stop date: 06/03/19 23:06:00 EC TEACHER, 0 Insulin 2018-05 No Notes: Memoria Lispro 2-08 (Same as: l 05:07: Humalog) Carson 00 Roll in palms of hands gently; Do not shake vigorously . WASTE: F/P - Black; E - Municipal Trash Bin Stable for 28 days at room temperatur e. Expires in days from ____Date Aspirin 2018-05 No Notes: Memoria 2-08 Take with l 05:05: food. Vik 00 Aspirin 81 2018-05 No Notes: Do Me moria MG Enteric 2-08 not crush l Coated 05:00: or chew. Vik Tablet 00 (Same As: Ecotrin) Acetaminoph 2018-05 No Notes: Do M emoria en 2-08 not exceed l 04:57: 4 gm/day. Carson 00 (Same as: Tylenol) Saline 2018-05 No Notes: Memoria Flush 0.9% 208 (Same as: l 04:57: BD Carson 00 Posiflush) influenza 2018-05 No Notes: Memori a virus -08 (Same as: l vaccine, 04:16: Fluzone Pradip [...] Memoria 2-08 microgram, l 04:15: PO, Daily, Vik 00 0 Refill(s) Amlodipine 2018-05 Yes 1 cap, PO, M emoria 10 MG / 2-08 Daily, 0 l Benazepril 04:15: Refill(s) He rmann hydrochlori 00 de 40 MG Oral Capsule Potassium 2018-05 Yes 10 mEq, Memor ia Chloride 2-08 PO, Daily, l 04:15: 0 Vik 00 Refill(s) candesartan 2018-05 No 2 mg, PO, M emoria 2-08 Bedtime, 0 l 04:15: Refill(s) Carson 00 Metformin 2018-05 No 500 mg, Memor ia 2-08 PO, 0 l 04:15: Refill(s) Vik 00 furosemide 2019- No 20mg Take 20 mg MD (LASIX) 20 7-14 07-24 by mouth Irving rso mg tablet 00:00: 00:00 as needed. n 00 :00 potassium Yes TAKE 1 MD chloride 4-22 TABLET BY LEONILA Del Toro 00:00: MOUTH n -CON M) 10 00 EVERY DAY mEq tablet candesartan Yes take 1 (ATACANAlexander) 4 2-22 tablet Jesús o mg tablet [...] oximetry Body weight 2019-12-20 14:44:00 87.9 kg [facility] son BMI 2019-12-20 14:44:00 27.43 kg/m2 MD Rob[place] adams Temperature Oral (F) 2019-05-05 18:10:00 97.2 F [facility] Heart Rate 2019-05-05 18:10:00 [facility] Vik Respitory Rate 2019-05-05 18:10:00 Memori al Vik Systolic (mm Hg) 2019-05-05 18:10:00 Chema rial Vik Diastolic (mm Hg) 2019-05-05 18:10:00 Mem orial Carson Temperature Oral (F) 2019-05-05 14:15:00 97.3 F [facility] [place] Heart Rate 2019-05-05 14:15:00 [facility] Vik Respitory Rate 2019-05-05 14:15:00 Memori al Vik Systolic (mm Hg) 2019-05-05 14:15:00 Chema rial Carson Diastolic (mm Hg) 2019-05-05 14:15:00 Mem orial Vik Temperature Oral (F) 2019-05-05 10:24:00 97.3 F [facility] Vik Heart Rate 2019-05-05 10:24:00 [facility] Vik Respitory Rate 2019-05-05 10:24:00 Kelly Ochoa Systolic (mm Hg) 2019-05-05 10:24:00 Chema Chery Diastolic (mm Hg) 2019-05-05 10:24:00 Palomo Chery Height 2019-05-05 04:10:00 187.96 cm Katherine Chery Weight 2019-05-05 04:10:00 Katherine Chery BMI Calculated 2019-05-05 04:10:00 Kelly Ochoa Procedures Procedure Date / Time Performing Clinician Source Performed ELECTROLYTE PANEL 2019-12-20 15:59:00 Nahid Marcial MD n MAGNESIUM LEVEL 2019-12-20 15:59:00 Nahid Marcial MD SERUM CREATININE 2019-12-20 15:59:00 Nahid Marcial MD BLOOD UREA NITROGEN 2019-12-20 15:59:00 Nahid Marcial MD [facility] SERUM CREATININE 2019-12-20 15:59:00 Nahid Marcial MD .GLOMERULAR FILTRATION RATE 2019-12-20 15:59:00 Nahid Marcial MD BETA 2 MICROGLOBULIN 2019-12-18 14:47:00 Aditi Grant MD LACTATE DEHYDROGENASE 2019-12-18 14:47:00 Aditi Grant MD Results CBC 2019-12-18 14:47:00 Aditi Grant MD [facility] MANUAL DIFFERENTIAL 2019-12-18 14:47:00 Aditi Grant MD nderson GLUCOSE LEVEL 2019-12-18 14:47:00 Aditi Grant MD [facility] son ELECTROLYTE PANEL 2019-12-18 14:47:00 Aditi Grant MD And erson SERUM CREATININE 2019-12-18 14:47:00 Aditi Grant MD Irving rson .GLOMERULAR FILTRATION RATE 2019-12-18 14:47:00 Sharan Grant MD CALCIUM LEVEL TOTAL 2019-12-18 14:47:00 Aditi Grant MD nderson ALBUMIN LEVEL 2019-12-18 14:47:00 Aditi Grant MD [facility] son ALKALINE PHOSPHATASE 2019-12-18 14:47:00 Aditi rGant MD ALANINE AMINOTRANSFERASE 2019-12-18 14:47:00 Aditi Grant [...] PATH REVIEW 2019-12-18 14:47:00 Aditi Grant MD COMPLETE BLOOD COUNT W/ 2019-12-18 14:47:00 Aditi Grant MD DIFFERENTIAL COMPREHENSIVE METABOLIC 2019-12-18 14:47:00 Aditi Grant MD PANEL MAGNESIUM LEVEL 2019-12-18 14:47:00 Aditi Grant MD [facility] PHOSPHORUS LEVEL 2019-12-18 14:47:00 Aditi Grant MD Irving rson URIC ACID 2019-12-18 14:47:00 Aditi Grant MD [place] angie IMMUNOGLOBULIN A SERUM 2019-12-18 14:47:00 Aditi Grant FREE KAPPA LIGHT CHAIN 2019-12-18 14:47:00 Aditi Grant IMMUNOFIXATION 2019-12-18 14:47:00 Aditi Grant MD [facility] ELECTROPHORESIS PROTEIN ELECTROPHORESIS 2019-12-18 06:00:00 Aditi Grant MD URINE IMMUNOFIXATION 2019-12-18 06:00:00 Aditi Grant MD [facility] ELECTROPHORESIS URINE URINE TOTAL PROTEIN 2019-12-18 06:00:00 Aditi Grant MD nderson .TOTAL VOLUME 2019-12-18 06:00:00 Aditi Grant MD [facility] .DR. SONYA Joyner PROT ELEC PATH 2019-12-18 06:00:00 Sharan Grant MD REVIEW .DR ESCOTO [facility] PATH REVIEW 2019-12-18 06:00:00 Sharan Grant MD MRI WHOLE BODY - BONE 2019-12-16 14:45:00 Aditi Grant MD MARROW Cataract surgery [facility] Knee joint operation [facility] Encounters Start End Encounter Admission Attending Care Care Encounter Source Date/Time Date/Time Type Type Clinicians Facility Department ID 2020-10-03 Outpatient JOHN [facility] [id number] CT 03:25:33 LACAP, Health CINDA 2019-12-16 Outpatient MDA MDA [id number] 07:06:56 Prisca sanchez 2020-06-04 2020-06-04 Outpatient [facility] CAR [id number] [facility] 08:45:00 08:45:00 2020-01-25 2020-01-25 Telephone LINH Jennings [id number] 00:00:00 00:00:00 Ashley YANES [id number] [facility] [id number] 2020-01-24 2020-01-24 Laboratory Lab, [facility] [id number] 14:45:15 15:30:48 Only Fam Pob [facility] [id number] [place] [id number] Professio [id number] nal [address] 2019-12-20 2019-12-20 Outpatient MAITE MARCIAL TARYN MDA [id number] 09:37:45 11:58:12 NAHID sanchez 2019-12-20 2019-12-20 Outpatient MAITE MARCIAL MDA MDA [id number] 10:47:51 10:47:51 NAHID sanchez 2019-12-20 2019-12-20 Outpatient MAITE MARCIAL, MDA MDA [id number] 00:00:00 00:00:00 NAHID sanchez 2019-12-18 2019-12-18 Outpatient MAITE MEDRANOLenore TARYN MDA [id number] 09:29:08 23:59:00 ADITI sanchez 2019-12-16 2019-12-16 Outpatient MAITE GRANT MDA MDA [id number] 06:25:15 06:25:15 ADITI sancehz 2019-05-04 2019-05-[id number] 22:57:00 16:54:00 , Simone Covarrubias 2019-05-04 2019-05-04 Outpatient U BL MED [id number] 22:57:00 22:57:00 2013-12-06 2013-12-06 Outpatient [facility] [id number] 13:00:00 23:59:00 Anjail 00 [facility] 2013-12-06 2013-12-06 Outpatient [facility] [id number] 10:19:00 23:59:00 Anjail 00 [facility] Results Test Description Test Test Results Result Source Time Comments Comments Urine Prot ProE Path IntThe And ersrachel Electrophoresis Path 24 follow-up urine Review 20:15:55 protein electrophoretic pattern shows no definitive evidence of a Bence-Foster protein peak.If a Bence-Foster proteinuria is suspected clinically, serum free light chain and urine immunofixation studies are recommended. Comment: KEITH HASASN MD PHD [id number] by: KEITH HASSAN MD PHD [id number] Date/Time: 12.20.2019 15:15 PM CDT Transcribed Date/Time: 12.20.2019 15:15 PM CDTElectronically Signed By: KEITH HASSAN MD PHD [id number] on 12.20.2019 15:15 PM [facility] Urine ABA Path FE Path IntThe MD Jovita englandrsrachel Review 24 follow-up urine 20:15:54 protein immunofixation electrophoretic patterns obtained with the use of antisera against IgG, IgA, IgM, bound and free [place] and Lambda light chain proteins show no definitive evidence of a Bence-Foster protein band.The cannot, however, exclude the possible presence of an IgA kappa M-protein band in the beta-gamma junction region. Comment: KEITH HASSAN MD PHD [id number] by: KEITH HASSAN MD PHD [id number] Date/Time: 12.20.2019 15:15 PM CDT Transcribed Date/Time: 12.20.2019 15:15 PM CDTElectronically Signed By: KEITH HASSAN MD PHD [id number] on 12.20.2019 15:15 PM [facility] ABA Urine 2019-12-20 20:15:53 Test Item Value Reference Range Interpretation Comme nts UIFE (test code = 7916) No BJP Seen MD RothmanProtein Electrophoresis [id number] 20:15:52 Test Item Value Reference Range Interpretation Comments U Albumin % (test code = 7676) 41.2 % 30-50 U Globulin% (test code = 8523) 58.8 % 50-70 MD RothmanProtein Electrophoresis Path [id number] 15:37:06 Test Item Value Reference Range Interpretation Comments SPE Path The follow-up serum Interp (test protein code = 7285) electrophoretic MARGIE HASSAN MD pattern shows that PHD [id number] Dictated by: the M-protein peak is KEITH HASSAN MD PHD still present in the 66986Tq ctated beta-gamma junction Date/Humberto e: 12.19.2019 region. It 10:37 AM CDT demonstrates no Transcribed Date/Time: significant change 0 10:37 AM when compared to the CDTElec tronically previous M-protein Signed By : KEITH value of 0.2 g/dL on Alexis HASSAN PHD [id number] on 10/08/2019. 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 Comment: KEITH HASSAN MD PHD [id number] by: KEITH HASSAN MD PHD [id number] Date/Time: 12.19.2019 10:37 AM CDT Transcribed Date/Time: 12.19.2019 10:37 AM CDTElectronically Signed By: KEITH HASSAN MD PHD [id number] on 12.19.2019 10:37 AM [facility] [id number] 15:37:04 Test Item Value Reference Range Interpretation Comments ABA (test code = 5948) [facility] Protein [id number] 15:37:03 Test Item Value Reference Range Interpretation Comments TOT PROTEIN (test code = 7.0 See_Comment [A utomated message] 8545) The system [facility] generated this result transmitted ref erence range: 6.4 - 8. 3 gm/dL. The refe rence range was not u sed to interpret this result as normal/abnor mal. Albumin (test code = 4.3 See_Comment [Autom ated message] 8631-7) The system [facility] generated this result transmitted ref erence range: 3.6 - 5. 4 gm/dL. The refe rence range was not u sed to interpret this result as normal/abnor mal. Alpha 1 Globulin (test 0.3 See_Comment [Aut omated message] code = 2865-4) The system [facility] generated this result transmitted ref erence range: 0.2 - 0. 4 gm/dL. The refe rence range was not u sed to interpret this result as normal/abnor mal. Alpha 2 Globulin (test 1.0 See_Comment [Aut omated message] code = 2868-8) The system [facility] generated this result transmitted ref erence range: 0.5 - 1. 0 gm/dL. The refe rence range was not u sed to interpret this result as normal/abnor mal. Beta Globulin (test code 0.7 See_Comment [A utomated message] = 2871-2) The system [employer] generated this result transmitted ref erence range: 0.5 - 1. 1 gm/dL. The refe rence range was not u sed to interpret this result as normal/abnor mal. Gamma Globulin (test 0.8 See_Comment [Autom ated message] code = 2874-6) The system [facility] generated this result transmitted ref erence range: 0.7 - 1. 6 gm/dL. The refe rence range was not u sed to interpret this result as normal/abnor mal. Paraprotein2 (test code 0.2 See_Comment H [Au tomated message] = 84847-0) The system [employer] generated this result transmitted ref erence range: 0.0 - 0. 0 gm/dL. The refe rence range was not u sed to interpret this result as normal/abnor mal. Lab Interpretation (test Abnormal code = 72596-5) MD Boykin [place]/Free Lambda [id number] 17:23:49 Test Item Value Reference Range Interpretation Comments FKap/FLam RT (test code = 5566) 2.32 0.26-1.65 H Lab Interpretation (test code = Abnormal 54495-1) MD Boykin Lambda Light [id number] 17:23:48 Test Item Value Reference Range Interpretation Comments Free Lambda (test code = 5630) 9.18 mg/L 5.71-26.3 MD Boykin [place] Light [id number] 17:23:47 Test Item Value Reference Range Interpretation Comments Free [place] (test code = 5629) 21.27 mg/L 3.3-19.4 H Lab Interpretation (test code = Abnormal 07491-0) MD RothmanBeta 2 [id number] 17:23:46 Test Item Value Reference Range Interpretation Comments Beta2 Microglob (test code = 5090) 2.9 mg/L 0.8-2.3 H Lab Interpretation (test code = Abnormal 58399-7) MD RothmanEindivgrKpY4022-89-46 17:23:45 Test Item Value Reference Range Interpretation Comments IgM (test code = 6023) 61 mg/dL 35-242 MD [id number] 17:23:44 Test Item Value Reference Range Interpretation Comments IgG (test code = 6001) 637 mg/dL 610-1616 JseovyjwUjY9720-97-09 17:23:43 Test Item Value Reference Range Interpretation Comments IgA (test code = 5992) 335 mg/dL 85-499 Gzbkzpxy65sm Urine Total [id number] 16:49:55 Test Item Value Reference Range Interpretation [...] (test code 342 = 7923) MD RothmanFractionated Okthekvum9464-78-82 15:49:40 Test Item Value Reference Range Interpretation [...] 28 g/L. [Automate d message] The system [employer] generated this result transmitted ref erence range: [...] 0.5 mg/dL 0-0.9 code = 5095) MD [id number] 15:49:37 Test Item Value Reference Range Interpretation Comments LDH (test code = 6111) 249 U/L 135-225 H Resul ts greater than 1651 U/L may no t be reliable due to matrix effect w ith extended diluti on as it exceeds the [place] s recommended l imit. Caution should be exercised when interpreting ortiz ch values and done in conjunction wit h clinical contex t. Lab Interpretation (test Abnormal code = 55350-0) MD RothmanAlkaline Ienljekntpp2814-08-46 15:49:36 Test Item Value Reference Range Interpretation Comments Alk Phos (test code = 4768) 55 U/L 40-129 MD RothmanAlbumin Tediu2489-02-08 15:49:35 Test Item Value Reference Range Interpretation Comments Albumin Lvl (test code 4.4 See_Comment [Aut omated message] The = 2242) system which ge nerated this result tra nsmitted reference range : 3.5 - 5.2 gm/dL. The refe rence range was not used to interpret this result as normal/abnormal . MD RothmanAspartate Ueyvjmbfgkxyjyiw4107-83-05 15:49:34 Test Item Value Reference Range Interpretation Comments AST (test code = 20 U/L See_Comment [Automated message] The 2239) system which ge nerated this result transmit danica reference range : <=40. The reference range was not used to interpr et this result as zara l/abnormal. MD RothmanUric [id number] 15:49:30 Test Item Value Reference Range Interpretation Comments Uric Acid (test code = 7955) 5.7 mg/dL 3.4-7 MD RothmanTotal [id number] 15:49:29 Test Item Value Reference Range Interpretation Comments Total Protein (test code = 7649) 7.0 g/dL 6.4-8.3 MD RothmanPhosphorus [id number] 15:49:28 Test Item Value Reference Range Interpretation Comments Phosphorus (test code = 6817) 2.2 mg/dL 2.5-4.5 L Lab Interpretation (test code = Abnormal 59415-9) MD RothmanCalcium [id number] 15:49:27 Test Item Value Reference Range Interpretation Comments Calcium Lvl (test code = 5258) 10.3 mg/dL 8.4-10.2 H Lab Interpretation (test code = Abnormal 10125-4) MD RothmanKmqevnceITU5044-67-27 15:49:25 Test Item Value Reference Range Interpretation Comments ALT (test code = 18 U/L See_Comment [Automated message] The 9985) system which ge nerated this result transmit danica reference range : <=41. The reference range was not used to interpr et this result as zara l/abnormal. MD RothmanGlucose [id number] 15:49:23 Test Item Value Reference Range Interpretation Comments Glucose Level (test code 244 mg/dL 70-99 H Ref erence range is = 5699) valid for fasti ng specimens only. Guidelines established by the [place] Diabet es [employer] guidelines (Standards of Medical [...] us. Lab Interpretation (test Abnormal code = 25003-5) MD RothmanTotal [id number] 15:32:46 Test Item Value Reference Range Interpretation Comments Total Volume (test code 2850 mL 3247-3292 H Jere ection = 7650) date/time has [...] End Date (test code = 12/17/2019 Collec tirachel 5510) date/time has b een modified to: 01:00 :00. Previous collection date/time: 09:29:00.Lora danica from 12/17/19 0:00:00 CDT [NA ] on 12/18/19 10:32: 46 CDT by Lora Quinones. Lab Interpretation (test Abnormal code = 85657-4) MD RothmanJxblajzgHpfvyslrgrwl8266-53-22 15:17:16 Test Item Value Reference Range Interpretation [...] H Lab Interpretation (test Abnormal code = 37128-7) MD Rothman.[id number] 15:17:10 Test Item Value Reference Range Interpretation Comments WBC (test code = 8.6 K/uL 4-11 8034) RBC (test code = 5.30 See_Comment [Automated message] The 5512) system which ge nerated this result tra nsmitted reference range : 4.50 - 6.00 M/uL. The reference range was not u sed to interpret this result as normal/abnormal . Hgb (test code = 15.5 See_Comment [Automated message] The 5898) system which [employer] nerated this result tra nsmitted reference range : 14.0 - 18.0 gm/dL. The reference range was not u sed to interpret this result as normal/abnormal . Hct (test code = 47.7 % 40-54 5860) MCV (test code = 90 fL 82-98 6222) MCH (test code = 29.2 pg 27-31 6220) MCHC (test code = 32.5 See_Comment [Automate d message] The 6221) system which [employer] nerated this result tra nsmitted reference range [...] et this result as normal/abnormal . [facility] Whole Body - Bone [id number] 16:59:09No evidence to suggest active myeloma.. Interface, [...] protrusion and annular fissure.IMPRESSION:No evidence to suggest activemyeloma.. AndersonCARDIAC [id number] 14:46:00<0.02[facility] QjwdrahVXGDWWRXQN8039-63-24 08:56:00 19.8[facility]orial XjjctzzMMMCQOZAFJ5570-90-52 08:56:009.8[facility]OLOGY 2019-05-05 08:56:002.0[facility] YuyezseOZKTKIXWGR1035-52-27 08:56:001.0[facility]orial UkjbnmwKFMKQVGPMQ3083-73-09 08:56:005.1[facility]orial KpavorwKJZNNUCLAM9077-71-93 08:56:001.5[facility] EpnroqtUGKLMVTAPB5253-96-84 08:56:000.7[facility] Carson NBWEYQNDKA4179-92-13 08:56:000.2[facility]orial TbkchshQPRDAQGEYZ3694-40-92 08:56:000.1 Memorial ScmayfoNSWQCO0960-41-08 08:56:00 Test Item Value Reference Range Interpretation Comments CHD Risk (test code = CHD Risk) 4.74 1 4.00-7.30 Memorial JmihrlnTQXTOZ2884-20-27 08:56:18926Cogeaeer XcjmwpdNBHAEG5992-17-74 08:56:72690Lcyiafmt XmwevgkIRJQRJ5443-82-40 08:56:0034[facility] HermannLIPIDS 2019-05-05 08:56:41266Ztdbbfdw NftcccyQBZJWD5487-20-11 08:56:00 Test Item Value Reference Range Interpretation Comments VLDL (test code = VLDL) 22 1 [facility] HermannSPECIAL MPLGUKIBS9640-17-04 08:56:008.9[facility] HermannCARDIAC VFNUKXV2114-44-24 08:56:00<0.02[facility] HermannCHEM YRBBC5454-20-75 08:56:00 263[facility] HermannCHEM AGJRV8904-95-37 08:56:0015[facility] HermannCHEM PANEL 2019-05-05 08:56:000.88[facility] HermannCHEM GQIEC4734-16-85 08:56:48137Jjvgkqnr HermannCHEM FLHQF5777-53-85 08:56:003.7[facility] HermannCHEM TGPBX5501-44-47 08:56:72276Fuwxykmr HermannCHEM ETGCZ7603-30-76 08:56:0024[facility] HermannCHEM RCNUN0473-25-28 08:56:008.4[facility] HermannCHEM WQCDB2692-92-86 08:56:0079 [facility]annCHEM UVYOY6790-15-78 08:56:0010.7[facility] HermannHEMATOLOGY 2019-05-05 08:56:007.6[facility] MjzasmpHZHCPKZOBN6774-11-69 08:56:004.56[facility] BlmbrspVXORJRNUGI5255-05-40 08:56:0013.8[facility] IalhcouFPFKLXDLDT2383-41-59 08:56:0041.0[facility] CagkswfEHJERNVOXR8522-53-53 08:56:0089.9[facility] Vik AUQZEHXPCT5268-64-27 08:56:00 Test Item Value Reference Range Interpretation Comments MCH (test code = MCH) 30.3 pg 27.0-31.0 [facility] UonribkOIGKCLLHWU7551-77-11 08:56:0033.7[facility] HermannHEMATOLOGY 2019-05-05 08:56:0014.5[facility] GxtyddlIWRPPBGKNS6141-53-78 08:56:75975Egyhcjvd XkkavpbCHIYVOJKZM4200-30-81 08:56:008.6[facility] GnfmwbsCCDGNIAVVB9685-85-96 08:56:0067.4[facility] HermannCARDIAC YWFNJRX0516-80-04 08:31:00<0.02[facility] HermannCHEM BNANN0357-58-87 08:31:35906Qoynlvsn HermannCHEM BJYXU1800-42-91 08:31:0015[facility] HermannCHEM SAHXH5431-23-97 08:31:000.99[facility] HermannCHEM KOMFO9338-67-86 08:31:96935Wxabsvty HermannCHEM SZUDI2766-15-72 08:31:004.1 [facility]annCHEM XZYFK0545-27-33 08:31:88561Rbqocigo HermannCHEM PANEL 2019-05-05 08:31:0027[facility] HermannCHEM IKEVX8134-69-05 08:31:008.9[facility] HermannCHEM HKAQD0448-68-28 08:31:006.1[facility] HermannCHEM BVZAK8194-45-26 08:31:003.4[facility] HermannCHEM XGULS1987-44-39 08:31:0016[facility] HermannCHEM KILGQ8690-42-32 08:31:0010[facility] HermannCHEM DHBTB7456-19-52 08:31:0053 [facility] HermannCHEM TREYO3620-04-94 08:31:000.7[facility] HermannCHEM PANEL 2019-05-05 08:31:0070[facility] HermannCHEM GFGPN7407-86-68 08:31:0010.1[facility] HermannCHEM EUMJU6217-55-64 08:31:00 Test Item Value Reference Range Interpretation Comments B/C Ratio (test code = B/C Ratio) 15 1 6-25 [facility] HermannCHEM FMZVU5255-67-02 08:31:002.7[facility] HermannCHEM PANEL 2019-05-05 08:31:00 Test Item Value Reference Range Interpretation Comments A/G Ratio (test code = A/G Ratio) 1.3 1 0.7-1.6 [facility] QaechneERCJMAHOAH2489-66-29 08:31:0067.3[facility] HermannHEMATOLOGY 2019-05-05 08:31:0020.3[facility] EwzxhzzBAYAYHZSOL0642-91-45 08:31:009.1[facility] ScoxdmlMPKTKRVZYC3905-57-96 08:31:002.4[facility] FbbwhyqJUKPBLULCA2926-72-54 08:31:000.9[facility] YjqpivzMLSPSHDFXI7257-65-87 08:31:005.4[facility] Vik FSGLJLSSQS9610-42-76 08:31:001.6[facility] VfndqccUXUGKULTPG5052-57-48 08:31:000.7 [facility] KsrvjhvMVANEUPDOL1054-19-56 08:31:000.2[facility] HermannHEMATOLOGY 2019-05-05 08:31:000.1[facility] GpppaffDEULVHOBJB4698-56-39 08:31:008.0[facility] AjsgrigAMEXIPASUR7057-03-05 08:31:004.65[facility] ArnamsdNWEJJBPHIP4537-91-59 08:31:0014.0[facility] EuaurshQWSGHRUSJL1260-46-51 08:31:0041.8[facility] Vik YRCJJCUZXH2140-70-66 08:31:0089.8[facility] CvqosqbXZGGPFTNSN9965-43-73 08:31:00 Test Item Value Reference Range Interpretation Comments MCH (test code = MCH) 30.1 pg 27.0-31.0 [facility] PpystzbXMWPVHMCNF6791-88-33 08:31:0033.5[facility] HermannHEMATOLOGY 2019-05-05 08:31:0014.5[facility] XvyvnhsCGJDMSRVZV2353-68-84 08:31:05885Axbiokxf PbxqsijFMZSTAJAYV0949-61-27 08:31:008.2[facility] AbhbouvCSCFMPLNTX5960-44-08 08:31:00 Test Item Value Reference Range Interpretation Comments PTT (test code = PTT) 31.5 s 22.9-35.8 [facility] WhmbtkdJIZQMUIORR5079-16-65 08:31:00 Test Item Value Reference Range Interpretation Comments INR (test code = INR) 1.15 1 0.85-1.17 [facility] DtezbnxEPZQQYAHWB7464-68-71 08:31:00 Test Item Value Reference Range Interpretation Comments PT (test code = PT) 14.5 s 12.0-14.7 [facility] KojuwjgXMLGRIHMMV9553-34-63 08:31:00Non-Reactive *NA*(05/05/19 2:31 AM) [facility]UR[facility] AND URIVL2566-04-74 08:31:00Clear (05/05/19 2:31 AM) [facility] XWLCN4302-43-88 08:31:00 Test Item Value Reference Range Interpretation Comments UA Spec Grav (test code = UA Spec 1.006 1 Grav) [facility] AND HTSVT8506-24-41 08:31:00 Test Item Value Reference Range Interpretation Comments UA pH (test code = UA pH) 7.0 1 5.0-8.0 [facility] AND WFYJV7330-07-44 08:31:00Negative *NA*(05/05/19 2:31 AM) [facility] JFRCB4566-47-95 08:31:00Negative (05/05/19 2:31 AM) [facility] BUTFL8456-75-88 08:31:00Negative (05/05/19 2:31 AM) [facility] ENISA7036-06-21 08:31:00Negative (05/05/19 2:31 AM) [facility] QGAHH0550-29-76 08:31:69464Sxexzngq [place]
[2020-10-13 12:08] LABS: Absolute Lymphocytes (CBC) 1.2 K/uL (0.7-4.9); Basophils % 0.7 % (0-1.3); Hematocrit 50.3 % (39.6-49.0); Lymphocytes % 16.6 % (15.3-44.8); MPV 8.7 fL (7.6-11.3); RBC Red Blood Cell Count 5.73 M/uL (4.33-5.43)
--- NOTE | 2020-10-13 12:10 | RAD REPORT ---
EXAM DESCRIPTION: CT - Ct Stroke Brain Wo Cont - 10/13/2020 11:54 am CLINICAL HISTORY: WEAKNESS COMPARISON: Head Brain Wo Cont dated 08/08/2020 TECHNIQUE: Axial 5 millimeter thick images of the head were obtained without IV contrast. All CT scans are performed using dose optimization technique as appropriate and may include automated exposure control or mA/KV adjustment according to patient size. FINDINGS: No intracranial hemorrhage, mass, or cerebral edema. No acute infarction identifiable. No cortical edema or sulcal effacement. Patient has advanced atrophy and advanced chronic ischemic ordaz e. Ventricles are in proportion. The intracranial findings are similar to comparison. Herrera matter-whi te matter differentiation is preserved.Dense arterial tree calcifications are present. Visualized portions of the mastoid air cells, paranasal sinuses, and orbits are unremarkable. Findings telephoned to Dr. Kang 12:07 p.m. IMPRESSION: No CT evidence of acute intracranial process. Advanced atrophy and chronic ischemic changes match the July 2020 study.
[2020-10-13 12:15] LABS: Protime INR 1.08
[2020-10-13 12:24] LABS: BUN Blood Urea Nitrogen 17 mg/dL (7-18); Bicarbonate 23 mmol/L (21-32); Glucose Level 243 mg/dL (74-106); Magnesium 1.9 mg/dL (1.8-2.4); Potassium 4.1 mmol/L (3.5-5.1); Sodium Level 136 mmol/L (136-145); Troponin (Emerg Dept Use Only) < 0.02 ng/mL (0.0-0.045)
[2020-10-13] MEDS ORDERED: ALTEPLASE 100 ML IV ONE (12:33)
--- NOTE | 2020-10-13 13:20 | ER ---
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 Pt is normally able to walk normally. Onset of symptoms was October 13, 2020. 11:50 Method Of Arrival: Wheelchair sv 11:50 Acuity: VICTORINO 2 sv 12:05 Coronavirus screen: At this time, the client does not indicate any symptoms associated tw2 with coronavirus-19. Ebola Screen: Patient denies travel to an Ebola-affected area in the 21 days before illness onset. An acute neurological deficit is present. The charge nurse has been notified. The patient has been moved to a treatment area. Pre-hospital glucose is not applicable to this patient. Initial Sepsis Screen: Does the patient meet any 2 criteria? No. Patient's initial sepsis screen is negative. Does the patient have a suspected source of infection? No. Patient's initial sepsis screen is negative. Risk Assessment: Do you want to hurt yourself or someone else? Patient reports no desire to harm self or others. Triage Assessment: 11:58 The onset of the patients symptoms was The onset of the patients symptoms was October 132020 at 11:30. Stroke Activation: Symptom onset < 3 hours Physician: Stroke Attending; Name: ; Notified At: ; Arrived At: Physician: Chief Stroke Resident; Name: ; Notified At: ; Arrived At: Physician: Stroke Resident; Name: ; Notified At: ; Arrived At: Physician: ED Attending; Name: Dr Kang; Notified At: 11:46; Arrived At: 11:46 Physician: ED Resident; Name: ; Notified At: ; Arrived At: Historical: - Allergies: 12:01 No Known Allergies; sv - Home Meds: 13:17 levothyroxine 75 mcg tab 1 tab once daily [Active]; clopidogrel 75 mg oral tab 1 tab tw2 once daily [Active]; candesartan 4 mg oral tab 1 tab once daily [Active]; lisinopril 40 mg Oral tab 1 tab once daily [Active]; oxybutynin chloride 5 mg Oral tr24 1 tab once daily [Active]; fluoxetine 10 mg Oral tab 1 tabs once daily [Active]; meclizine 25 mg Oral tab 1 tab once daily [Active]; metformin 500 mg Oral tab 1 tab 2 times per day [Active]; Januvia 100 mg oral tab 0.5 tab twice a day [Active]; amlodipine-benazepril 10-40 mg oral cap 1 cap once daily [Active]; potassium chloride 10 mEq Oral TbTQ 1 tab once daily [Active]; - 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 - Family history:: not pertinent. - Social history:: Smoking status: . - Hospitalizations: : No recent hospitalization is reported. Screenin:33 Abuse screen: Denies threats or abuse. Nutritional screening: No deficits noted. tw2 Tuberculosis screening: No symptoms or risk factors identified. Fall Risk Secondary diagnosis (15 points) impaired mobility. Assessment: 11:56 Reassessment: Pt back from CT via stretcher with Tanika TINAJERO. sv 12:09 Reassessment: provider at bedside at this time. tw2 12:10 Patient has been NPO before screening. The patient is alert, and able to follow tw2 commands. The patient exhibits slurred or garbled speech. The patient is not exhibiting difficulty speaking. The patient is exhibiting difficulty understanding words. The patient is able to swallow own secretions with no drooling or need for suction. The patient did not tolerate one teaspoon of water. Drooling, immediate coughing, gurgling, or clearing of the throat was noted. Bedside swallow screening discontinued. Patient kept NPO until cleared by Speech Therapy or Physician. failed after teaspoon of water, provider Dr. Kang aware and at bedside at this time. The patient failed the bedside swallow screening. The patient will be kept NPO until cleared by Speech Therapy or Physician. Provider notified of bedside swallow screening results: Kevin Kang MD. 12:11 Reassessment: Dr Kang at the bedside discussing with pt and son regarding possible TPA sv administration. 12:20 T-PA (Activase) Screening: Indications: Treatment will start within 4.5 hours onset of tw2 symptoms: Yes. Consent for thrombolytic therapy: Yes. Vital Signs: 11:58 BP 124 / 85; Pulse 83; Resp 17; Temp 97.9; Pulse Ox 99% on R/A; tw2 12:16 Weight 90.72 kg (R); tw2 13:00 BP 157 / 88; Pulse 80; Resp 17; Pulse Ox 100% on R/A; tw2 NIH Stroke Scale Scores: 12:14 NIHSS Score: 7 tw2 12:44 NIHSS Score: 6 rn surgical pcu Course: 11:49 Patient arrived in ED. sv 11:50 Kevin Kang MD is Attending Physician. rn 11:51 Triage completed. sv 11:57 Inserted saline lock: 20 gauge in right antecubital area, using aseptic technique. sv Blood collected. Flushed right antecubital with 2 ml normal saline. 11:57 Patient has correct armband on for positive identification. Placed in gown. Bed in low sv position. Call light in reach. Side rails up X2. Adult w/ patient. curtain cutter hand on. Pulse ox on. NIBP on. 12:01 Magnesium Sent. sv 12:01 Troponin (emerg Dept Use Only) Sent. sv 12:02 Basic Metabolic Panel Sent. sv 12:02 CBC with Diff Sent. sv 12:02 Protime (+inr) Sent. sv 12:02 Ptt, Activated Sent. sv 12:02 CT Stroke Brain w/o Contrast Sent. sv 12:02 Arm band placed on. sv 12:09 Tanika Pastor, RN is Primary Nurse. tw2 12:20 Inserted saline lock: 18 gauge in left forearm, using aseptic technique. Flushed left sv forearm with 2 ml normal saline. 13:11 CORONAVIRUS Sent. sv 13:11 COVID-19 : Document "Date of Symptom Onset" if Symptomatic. Sent. sv Administered Medications: 12:25 Drug: ACTIvase (alteplase) {Co-Signature: tw2 (Tanika Pastor RN).} Route: IV Thrombolytics; hb Rate: calculated rate; Infused Over: 60 mins; Point of Care Testing: Blood Glucose: 11:58 Blood Glucose: 239 mg/dL; tw2 Ranges: Outcome: 13:20 ER care complete, transfer ordered by MD. tinajero 14:25 Patient left the ED. tw2 NIH Stroke Scale - NIH Stroke Score Date: 10/13/2020 Time: 12:14 Total Score = 7 1a. Level of Consciousness (LOC) - 0(Alert) 1b. Level of Consciousness (LOC) (Year \\T\\ Age) - 0(Both) 1c. LOC Commands (Open \\T\\ Closes Eyes/Curing Supervisor) - 0(Both) 2. Best Gaze (Lateral Gaze Paresis) - 1(Partial gaze palsy) 3. Visual Field Loss - 0(No visual loss) 4. Facial Palsy - 1(Minor Paralysis) 5a. Left Arm: Motor (10-second hold) - 1(Drift) 5b. Right Arm: Motor (10-second hold) - 1(Drift) 6a. Left Leg: Motor (5-second hold - always test supine) - 1(Drift) 6b. Right Leg: Motor (5-second hold - always test supine) - 1(Drift) 7. Limb Ataxia (finger/nose \\T\\ heel/ba - test with eyes open) - 0(Absent) 8. Sensory Loss (pinprick arms/legs/face) - 0(Normal) 9. Best Language: Aphasia (description/naming/reading) - 1(Mild to moderate aphasia) 10. Dysarthria (speech clarity - read or repeat words) - 0(Normal) 11. Extinction and Inattention (visual/tactile/auditory/spatial/personal) - 0(No abnormality) Initials: tw2 NIH Stroke Scale - NIH Stroke Score Date: 10/13/2020 Time: 12:44 Total Score = 6 1a. Level of Consciousness (LOC) - 0(Alert) 1b. Level of Consciousness (LOC) (Year \\T\\ Age) - 0(Both) 1c. LOC Commands (Open \\T\\ Closes Eyes/Curing Supervisor) - 0(Both) 2. Best Gaze (Lateral Gaze Paresis) - 1(Partial gaze palsy) 3. Visual Field Loss - 0(No visual loss) 4. Facial Palsy - 1(Minor Paralysis) 5a. Left Arm: Motor (10-second hold) - 0(No drift) 5b. Right Arm: Motor (10-second hold) - 1(Drift) 6a. Left Leg: Motor (5-second hold - always test supine) - 0(No drift) 6b. Right Leg: Motor (5-second hold - always test supine) - 1(Drift) 7. Limb Ataxia (finger/nose \\T\\ heel/ba - test with eyes open) - 0(Absent) 8. Sensory Loss (pinprick arms/legs/face) - 1(Mild to moderate loss) 9. Best Language: Aphasia (description/naming/reading) - 0(No aphasia) 10. Dysarthria (speech clarity - read or repeat words) - 1(Mild to Moderate) 11. Extinction and Inattention (visual/tactile/auditory/spatial/personal) - 0(No abnormality) Initials: rn Signatures: Ondina Greene RN Kevin Guerra MD MD rn Baxter, Heather, RN RN hb Wise, Tara, RN RN tw2 Tanika Pastor RN tw2 Corrections: (The following items were deleted from the chart) 13:18 11:58 The onset of the patients symptoms was tw2 tw2
--- NOTE | 2020-10-13 13:20 | EDPHYS ---
Physician Documentation [facility] Name: Valerio France Age: 85 yrs Sex: Male : 1935 Arrival Date: 10/13/2020 Time: 11:49 Bed 6 Private MD: ED Physician Kevin Kang HPI: 10/13 12:20 This 85 yrs old Male presents to ER via Wheelchair with complaints of General rn Weakness, Trouble Walking. 12:20 The patient presents to the emergency department with weakness of the a speech produce sorter higher order brain function problem, difficult walking. Onset: The symptoms/episode began/occurred just prior to arrival. Associated signs and symptoms: Pertinent positives: headache, weakness. Severity of symptoms: At their worst the symptoms were moderate. The patient has experienced similar episodes in the past. Reports sudden onset weakness, slurred speech, tingling to right arm, at [facility], happened 15 min prior to arrival. Son reports similar episodes like this, then improves, not improving right now. NO head injury, no recent surgery. No trauma. Takes plavix for previous CVA. Last confirmed CVA 1 year ago.. Historical: - Allergies: 12:01 No Known Allergies; sv - Home Meds: 13:17 levothyroxine 75 mcg tab 1 tab once daily [Active]; clopidogrel 75 mg oral tab 1 tab tw2 once daily [Active]; candesartan 4 mg oral tab 1 tab once daily [Active]; lisinopril 40 mg Oral tab 1 tab once daily [Active]; oxybutynin chloride 5 mg Oral tr24 1 tab once daily [Active]; fluoxetine 10 mg Oral tab 1 tabs once daily [Active]; meclizine 25 mg Oral tab 1 tab once daily [Active]; metformin 500 mg Oral tab 1 tab 2 times per day [Active]; Januvia 100 mg oral tab 0.5 tab twice a day [Active]; amlodipine-benazepril 10-40 mg oral cap 1 cap once daily [Active]; potassium chloride 10 mEq Oral TbTQ 1 tab once daily [Active]; - 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 - Family history:: not pertinent. - Social history:: Smoking status: . - Hospitalizations: : No recent hospitalization is reported. ROS: 12:20 Constitutional: Negative for fever, chills, and weight loss, Eyes: Negative for injury, rn pain, redness, and discharge, Neck: Negative for injury, pain, and swelling, Cardiovascular: Negative for chest pain, palpitations, and edema, Respiratory: Negative for shortness of breath, cough, wheezing, and pleuritic chest pain, Abdomen/GI: Negative for abdominal pain, nausea, vomiting, diarrhea, and constipation, : Negative for injury, bleeding, discharge, and swelling, MS/Extremity: Negative for injury and deformity, Skin: Negative for injury, rash, and discoloration, Neuro: Negative for seizure Exam: 12:20 Constitutional: This is a well developed, well nourished patient who is awake, alert, rn and in no acute distress. Head/Face: Normocephalic, atraumatic. Eyes: Pupils equal round and reactive to light, deviated to right ENT: dry MM Cardiovascular: Regular rate and rhythm. No pulse deficits. Respiratory: No increased work of breathing, no retractions or nasal flaring. Abdomen/GI: soft, non-tender Skin: Warm, dry MS/ Extremity: Pulses equal, no cyanosis. Neuro: Awake and alert, GCS 15, oriented to person, place, time, and situation.+ mild left lower facial droop, slurred speech. + decreased sensation RUE to soft touch, + mild drift and weakness RUE/RLE. No visual field loss, deviation of eyes to right. 12:50 ECG was reviewed by the Attending Physician. rn Vital Signs: 11:58 BP 124 / 85; Pulse 83; Resp 17; Temp 97.9; Pulse Ox 99% on R/A; tw2 12:16 Weight 90.72 kg (R); tw2 13:00 BP 157 / 88; Pulse 80; Resp 17; Pulse Ox 100% on R/A; tw2 NIH Stroke Scale Scores: 12:14 NIHSS Score: 7 tw2 12:44 NIHSS Score: 6 rn MDM: 11:50 Patient medically screened. rn 12:13 ED course: Sudden onset weakness and slurred speech per patient and son, happened rn acutely at [facility], report last admitted for CVA 1 year ago, takes plavix, has had mini strokes similar to this one per son, but goes away with time, currently not improving. . 12:15 ED course: Pt with NIH score 6, meets TPA criteria, no absolute contraindications, will rn TPA. Consented both patient and son.. 12:44 ED course: Notified by warehouse packer no ICU beds, will attempt to transfer as drip rn and ship.. 12:49 ED course: Pt's doctor with [facility], will attempt to transfer to [facility]. . 13:18 Data reviewed: vital signs, nurses notes, lab test result(s), EKG, radiologic studies, rn and as a result, I will admit patient. Counseling: I had a detailed discussion with the patient and/or guardian regarding: the historical points, exam findings, and any diagnostic results supporting the discharge/admit diagnosis, lab results, radiology results, the need for further work-up and treatment in the hospital, the need to transfer to another facility, for higher level of care, NO ICU beds here. ED course: Pt accepted for transfer to [facility]. 13:26 ED course: Symptoms with near resolution now. . rn 10/13 11:51 Order name: Magnesium rn 10/13 11:51 Order name: Troponin (emerg Dept Use Only) rn 10/13 11:51 Order name: Basic Metabolic Panel rn 10/13 11:51 Order name: CBC with Diff rn 10/13 11:51 Order name: Protime (+inr) rn 10/13 11:51 Order name: Ptt, Activated rn 10/13 12:10 Order name: CBC with Automated Diff; Complete Time: 12:12 EDVT 10/13 12:11 Order name: Glucose, Ancillary Testing; Complete Time: 12:12 EDVT 10/13 12:18 Order name: COVID-19 : Document "Date of Symptom Onset" if Symptomatic. bd 10/13 12:24 Order name: Basic Metabolic Panel; Complete Time: 12:42 EDMS 10/13 12:24 Order name: Troponin (Emerg Dept Use Only); Complete Time: 12:42 EDMS 10/13 12:24 Order name: Magnesium; Complete Time: 12:42 EDMS 10/13 12:27 Order name: Protime (+INR); Complete Time: 12:42 EDMS 10/13 12:27 Order name: PTT, Activated Partial Thromb; Complete Time: 12:42 EDMS 10/13 11:51 Order name: CT Stroke Brain w/o Contrast rn 10/13 11:51 Order name: Stroke CXR 1 View rn 10/13 11:51 Order name: EKG; Complete Time: 11:51 rn 10/13 11:51 Order name: Accucheck; Complete Time: 12:02 rn 10/13 11:51 Order name: Cardiac monitoring; Complete Time: 12:02 rn 10/13 11:51 Order name: IV Saline Lock; Complete Time: 12:02 rn 10/13 11:51 Order name: Labs collected and sent; Complete Time: 12:02 rn 10/13 11:51 Order name: NPO; Complete Time: 12:02 rn 10/13 11:51 Order name: O2 Per Protocol; Complete Time: 12:02 rn 10/13 12:11 Order name: CT; Complete Time: 12:12 EDMS 10/13 12:50 Order name: CORONAVIRUS EDVT 10/13 13:33 Order name: RAD EDVT 10/13 13:37 Order name: SARS-COV-2 RT PCR EDVT 10/13 11:51 Order name: O2 Sat Monitoring; Complete Time: 12:02 rn 10/13 11:51 Order name: Stroke Swallow Screen; Complete Time: 12:32 rn EC:50 Rate is 89 beats/min. Rhythm is regular. QRS [place] is Normal. IN interval is normal. QRS rn interval is normal. QT interval is normal. No Q waves. T waves are Normal. No ST changes noted. Clinical impression: NSR w/ Non-specific ST/T Changes and 1st degree heart block. Interpreted by me. Reviewed by me. Administered Medications: 12:25 Drug: ACTIvase (alteplase) {Co-Signature: tw2 (Tanika Pastor RN).} Route: IV Thrombolytics; hb Rate: calculated rate; Infused Over: 60 mins; Point of Care Testing: Blood Glucose: 11:58 Blood Glucose: 239 mg/dL; tw2 Ranges: Critical Glucose Levels:Adult <50 mg/dl or >400 mg/dl <40 mg/dl or >180 mg/dl Disposition: 10/13/20 13:20 Transfer ordered to [facility]. Diagnosis are Slurred speech, Weakness, Paresthesia of skin, Cerebral infarction. - Reason for transfer: Higher level of care. - Accepting physician is . - Condition is Stable. - Problem is new. - Symptoms have improved. NIH Stroke Scale - NIH Stroke Score Date: 10/13/2020 Time: 12:14 Total Score = 7 1a. Level of Consciousness (LOC) - 0(Alert) 1b. Level of Consciousness (LOC) (Year \\T\\ Age) - 0(Both) 1c. LOC Commands (Open \\T\\ Closes Eyes/Corset Maker) - 0(Both) 2. Best Gaze (Lateral Gaze Paresis) - 1(Partial gaze palsy) 3. Visual Field Loss - 0(No visual loss) 4. Facial Palsy - 1(Minor Paralysis) 5a. Left Arm: Motor (10-second hold) - 1(Drift) 5b. Right Arm: Motor (10-second hold) - 1(Drift) 6a. Left Leg: Motor (5-second hold - always test supine) - 1(Drift) 6b. Right Leg: Motor (5-second hold - always test supine) - 1(Drift) 7. Limb Ataxia (finger/nose \\T\\ heel/ba - test with eyes open) - 0(Absent) 8. Sensory Loss (pinprick arms/legs/face) - 0(Normal) 9. Best Language: Aphasia (description/naming/reading) - 1(Mild to moderate aphasia) 10. Dysarthria (speech clarity - read or repeat words) - 0(Normal) 11. Extinction and Inattention (visual/tactile/auditory/spatial/personal) - 0(No abnormality) Initials: tw2 NIH Stroke Scale - NIH Stroke Score Date: 10/13/2020 Time: 12:44 Total Score = 6 1a. Level of Consciousness (LOC) - 0(Alert) 1b. Level of Consciousness (LOC) (Year \\T\\ Age) - 0(Both) 1c. LOC Commands (Open \\T\\ Closes Eyes/Corset Maker) - 0(Both) 2. Best Gaze (Lateral Gaze Paresis) - 1(Partial gaze palsy) 3. Visual Field Loss - 0(No visual loss) 4. Facial Palsy - 1(Minor Paralysis) 5a. Left Arm: Motor (10-second hold) - 0(No drift) 5b. Right Arm: Motor (10-second hold) - 1(Drift) 6a. Left Leg: Motor (5-second hold - always test supine) - 0(No drift) 6b. Right Leg: Motor (5-second hold - always test supine) - 1(Drift) 7. Limb Ataxia (finger/nose \\T\\ heel/ba - test with eyes open) - 0(Absent) 8. Sensory Loss (pinprick arms/legs/face) - 1(Mild to moderate loss) 9. Best Language: Aphasia (description/naming/reading) - 0(No aphasia) 10. Dysarthria (speech clarity - read or repeat words) - 1(Mild to Moderate) 11. Extinction and Inattention (visual/tactile/auditory/spatial/personal) - 0(No abnormality) Initials: rn Signatures: Dispatcher [employer] EDMS Ondina Greene RN Kevin Guerra MD MD rn Baxter, Heather, RN RN hb Wise, Tara, RN RN tw2 Tanika Pastor RN tw2 Corrections: (The following items were deleted from the chart) 12:45 12:14 NIHSS Score: 7 rn rn 12:46 12:15 ED course: Pt with NIH score 7, meets TPA criteria, will TPA. Consented rn both patient and son.. rn 14:25 13:20 10/13/2020 13:20 Transfer ordered to [facility]. Diagnosis tw2 is Slurred speech; Weakness; Paresthesia of skin; Cerebral infarction. Reason for transfer: Higher level of care. Accepting physician is . Condition is Stable. Problem is new. Symptoms have improved. rn
--- NOTE | 2020-10-13 13:32 | RAD REPORT ---
EXAM DESCRIPTION: Elvira Single View10/13/2020 1:06 pm CLINICAL HISTORY: Code stroke/weakness COMPARISON: 2013 FINDINGS: The lungs appear clear of acute infiltrate. The heart is normal size. Area sclerosis with in a posterior right rib are unchanged likely benign IMPRESSION: No acute abnormalities displayed
[2020-10-13 14:38] VITALS: TEMP 97.9
[2020-10-13 14:40] VITALS: BP 157/88; O2SAT 100
--- NOTE | 2020-10-14 08:44 | EKG ---
Test Date: 2020-10-13 Test Time: 12:05:30 [employer]itness [employer] Manager: LEXY MEASUREMENT RESULTS: Intervals: Rate: 89 AR: 248 QRSD: 64 QT: 362 QTc: 440 [place]: P: 79 AR: 248 QRS: 27 T: 55 INTERPRETIVE STATEMENTS: Sinus rhythm with 1st degree AV block Septal infarct, age undetermined Abnormal ECG Compared to ECG 05/04/2019 18:45:04 Myocardial infarct finding now present Electronically Signed On 10-14-20 08:41:42 CDT by Gen Porter
== END 2020-10-13 14:25 | disposition short-term general hospital (02) ==
LOC: ER 11:47
DX: I63.9 Cerebral infarction, unspecified (principal); I10 Essential (primary) hypertension; R29.707 NIHSS score 7; R53.1 Weakness; R20.2 Paresthesia of skin; E11.9 Type 2 diabetes mellitus without complications; Z20.822 Contact with and (suspected) exposure to COVID-19; Z79.01 Long term (current) use of anticoagulants
CPT/HCPCS: 85025; 80048; 36415; 83735; 85610; 82947; 85730; 84484; 70450; 71045; 96374; U0003; J2997; 92977; 93005; 99291

== ENCOUNTER 2021-06-14 10:54 | Emergency (ER) | payer OTHER ==
--- OUTSIDE RECORDS SUMMARY | 2021-06-14 10:57 | XMS REPORT | Clinical Summary ---
:1935 Author Organization [facility] Address [address] [place] [id number] Care Team Providers Name Role Phone Alexis Solis MD Primary Care Provider Robby Abraham MD Unavailable Robby Abraham MD Unavailable Jovita Butts NP Unavailable Sid Galaviz NP Unavailable Alexis Solis MD Unavailable Kriss Hernandez MD Unavailable [phone] Allergies No known active allergies Medications Medication Sig Dispensed Refills Start Date End Date Status levothyroxine Take 75 mcg by 0 A ctive (SYNTHROID, LEVOTHROID) mouth daily. 75 mcg tablet amLODIPine-benazepril Take by mouth at 0 Active (LOTREL) 10 mg-40 mg per bedtime. capsule rivaroxaban (XARELTO) 10 Take 10 mg by 0 Active mg tabletIndications: Pt mouth daily. does not remember dose, takes 1 tablet daily metFORMIN (GLUCOPHAGE) Take 1,000 mg by 0 Active 500 mg mouth 2 (two) tabletIndications: takes times a day with 2 tablets q AM and 1 meals. tablet q PM candesartan (ATACAND) 4 take 1 tablet 3 07/20/2015 Active mg tablet every nigh potassium chloride TAKE 1 TABLET BY 2 09/17/2017 Active (K-DUR,KLOR-CON M) 10 MOUTH EVERY DAY mEq tablet sitaGLIPtin-metFORMIN Take by mouth 2 0 Active (JANUMET) 50 mg-1,000 mg (two) times a per tablet day with meals. 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 This is monitore d by his local physician. Essential hypertension 03/05/2016 Last Assessment & Plan: His blood pressure is BP Readings from Last 1 Encounters: 02/22/17 132/79 . Continue current blood pressure anitra men and follow with PCP. Type 2 diabetes mellitus without complication 03/05/20 16 Last Assessment & Plan: He will continue on janumet and follow w ith his local PCP. Encounters Date Type Specialty Care Team Description 06/10/2021 Orders Only Lymphoma and Myeloma Aditi Butts ltiplmanish myeloma Jovita, APPEALS NURSE (Primary Dx) 02/02/2021 Telephone Lymphoma and Myeloma Alison Mcgarry Follow- up 08/05/2020 Orders Only Infectious Diseases Ede Aparicio MD S ARS-CoV-2 vaccination after 06/14/2020 Immunizations Name Administration Dates Next Due Influenza, Unspecified 02/28/2018 Surgical History Surgery Date Site/Laterality Comments TONSILLECTOMY EYE SURGERY Bilateral Cataract surgery KNEE SURGERY Left Medical History Medical History Date Comments History of cerebrovascular accident Gastroesophageal reflux disease Hypertension Nephrolithiasis Disorder of thyroid gland Diabetes mellitus Family History Medical History Relation Name Comments -Genitourinary (Bladder, Kidney, Prostate, Testicle) Father Relation Name Status Comments Father Social History Tobacco Use Types Packs/Day Years Used Date Former Smoker Cigars Smokeless Tobacco: Never Used Comments: quit in 1958 Alcohol Use Standard Drinks/Week Comments No 0 (1 standard drink = 0.6 oz pure alcoho l) Sex Assigned at Date Recorded Not on file Obstetrics History Last Filed Vital Signs Not on file Plan of Treatment Health Maintenance Due Date Last Done Comments COVID-19 Vaccination (1) 1947 Results Not on fileafter 06/14/2020 Insurance Payer Benefit Plan / Subscriber ID Effective Dates Phone Addre ss Type Group AETNA MEDICARE AETNA MEDICARE [id number] 2013-Marian CARNEY [id number] [place] [address] Valerio France Personal/Family Self [phone] (Home) [place] [id number] Valerio France Personal/Family Self [phone] [facility] (Home) [address] [place] [address] Care Teams Paleologist Relationship Specialty Start Date End Date Celine Solis MD PCP - General 07/29/[address] [place] [id number] Remington Abraham MD PCP - External Referring 06/11/14 Remington Abraham MD PCP - External Follow Up A 06/11/14 Aditi Butts, APPEALS NURSE Nurse Practitioner 08/05/[address] [place] [id number] Nancy Galaviz, APPEALS NURSE Nurse Practitioner 08/05/[address] [place] [id number] Celine Solis MD Physician 08/05/[address] [place] [id number] Gloria Hernandez Hematology 8/7/19 MD Kriss [address] [address]
--- OUTSIDE RECORDS SUMMARY | 2021-06-14 10:59 | XMS REPORT | Continuity of Care Document ---
:1935 Author Organization [facility] t Address [address] [place] [address] Care Team Providers Name Role Phone Alexis MARCIAL Primary Care Physician Unavailable JOHN CORDOVA Attending Clinician Unavailable Jovita Grant NP Attending Clinician Aye LAO S Attending Clinician Doctor Unassigned, Name Attending Clinician Unavailable Zeferino Attending Clinician Unavailable DREAD ARIZA Attending Clinician Unavailable Alessandra MURRAY Attending Clinician BIGG Attending Clinician Unavailable Jovita Franz Attending Clinician CAMILLE Attending Clinician Unavailable Lab, Fam Pob I Attending Clinician Unavailable Camille X RAY TECH Attending Clinician Alexis MARCIAL Attending Clinician Unavailable Jovita GRANT Attending Clinician Unavailable DREAD ARIZA Admitting Clinician Unavailable Payers Payer Name Policy Type Policy Number Effective Date Expiration Date S astrid AETNA MEDICARE [id number] 2013 PPO 00:00:00 AETNA MEDICARE [id number] 2013 PPO 00:00:00 MEDICARE [id number] 2013 2013 ADVANTAGE GENERIC 00:00:00 00:00:00 Problems Condition Condition Condition Status Onset Resolution Last Treating Co mments Source Name Details Category Date Date Treatment Clinician Date TIA Diagnosis Active 2018-052019-05-10 Mem oria 07-05 22:06:00 l TIA 00:00: Vik 00 Active 05/04/2019 [facility] 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 Continue on synthroid . This is monitored by his local physician . Essential Essential Disease Active 2015-05 Last hypertensi hypertensi 0-08 Assessmen Anderso on on 00:00: t & Plan: n 00 Formattin g of this note is different from the original. His blood pressure is BP Readings from Last 1 Encounter s: 02/22/17 132/79 . Continue current blood pressure regimen and follow with PCP. Type 2 Type 2 Disease Active 2015-05 Last diabetes diabetes 0-08 Assessmen And erso mellitus mellitus 00:00: t & Plan: n without without 00 Formattin complicati complicati g of this on on note might be different from the original. He will continue on janumet and follow with his local PCP. 436 - CVA Diagnosis Active 2013-12-06 Memoria 11-25 10:30:00 l 436 - 00:01: Alba CVA 00 Active 11/25/2013 ERNST Chery STROKE Diagnosis Active 2013-12-06 Mem oria 11-25 13:21:00 l STROKE 00:00: Vik 00 Active 11/25/2013 ERNST TIRR Type II Problem Active 2019-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 22:42:21 l mellitus Type II Edna nn uncontroll diabetes ed mellitus (finding) uncontroll ed (finding) Active Problem 05/07/2019 ERNST Anderson TRANSIENT Diagnosis Active 2019-05-10 Memoria CEREBRAL 22:06:00 l ISCHEMIC Vik ATTACK, TRANSIENT UNSP CEREBRAL ISCHEMIC ATTACK, UNSP Active [facility] Diabetes Problem Resolve 2019-05-07 Me moria mellitus d 22:42:21 l (disorder) Diabetes He rmann mellitus (disorder) Resolved Problem 05/07/2019 Alexis Newman, OPIAlexander Alba Hypertensi Problem Resolve 2019-05-07 Memoria ve d 22:42:21 l disorder, Vik systemic Hypertensi arterial ve (disorder) disorder, systemic arterial (disorder) Resolved Problem 05/07/2019 Alexis Newman, SUZETTE Alba Transient Problem Resolve 2019-05-07 M emoria ischemic d 22:42:21 l attack Alba (disorder) Transient ischemic attack (disorder) Resolved Problem 05/07/2019 Alexis Newman, SUZETTE Vik Allergies, Adverse Reactions, Alerts Allergy Allergy Status Severity Reaction(s) Onset Inactive Treating Comm ents Source Name Type Date Date Clinician NO KNOWN Drug Active [facility] ALLERGIE Class [facility] Family History Family Member Diagnosis Comments Start Date Stop Date Source Natural father -Genitourinary (Bladder, MD Rothman Kidney, Prostate, Testicle) Social History Social Habit Start Date Stop Date Quantity Comments Source Exposure to Yes [facility] SARS-CoV-2 [place] [facility] (event) Branch History of Cigar Smoker MD Rothman tobacco use Alcohol intake 2018-03-23 2018-03-23 Current MD Prisca sanchez 00:00:00 00:00:00 non-drinker of alcohol (finding) Tobacco Comment 2015-09-22 2015-09-22 quit in 1959 MD Irving gupta 00:00:00 00:00:00 Tobacco use and 2015-09-22 2015-09-22 Smokeless tobacco MD Stephan exposure 00:00:00 00:00:00 non-user Social History 2013-10-27 2013-10-27 [facility] erik 07:44:46 07:44:46 Sex [birth year] At [birth year] MD Espinosa on 00:00:00 00:00:00 Smoking Status Start Date Stop Date Source Unknown if ever smoked [facility] Ex-smoker 2015-09-22 00:00:00 2015-09-22 00:00:00 MD Arboleda son Medications Ordered Filled Start Stop Current Ordering Indication Dosage Frequency Signature Comments Components Source Medication Medication Date Date Medication? Clinician (SIG) Name Name NaCl 0.9% 2020- No 500mL at 999 Univ ers (NS) bolus 02-04 mL/hr, 500 it y of infusion 23:15: 23:18 mL, IV [place] 500 mL 00 :00 Infusion, Medical ONCE, 1 Branch dose, Cande 02/04/21 at 1815, STAT NaCl 0.9% 2020- No 500mL at 999 Univ ers (NS) bolus 02-04 mL/hr, 500 it y of infusion 23:15: 23:18 mL, IV [place] 500 mL 00 :00 Infusion, Medical ONCE, 1 Branch dose, Cande 02/04/21 at 1815, STAT casirivimab 2020- No 1200mg 1,200 mg, Univers -imdevimab 02-04 Subcutaneo it y of (REGEN-COV 22:00: 22:00 us, ONCE, [place] (EUA)) 00 :00 1 dose, Medical injection Cande 02/04/21 Bran ch 1,200 mg at 1700, Routine casirivimab 2020- No 1200mg 1,200 mg, Univers -imdevimab 02-04 Subcutaneo it y of (REGEN-COV 22:00: 22:00 us, ONCE, [place] (EUA)) 00 :00 1 dose, Medical injection Cande 02/04/21 Bran ch 1,200 mg at 1700, Routine ondansetron Yes [id number] 4mg Take 1 Univers (ZOFRAN 02-04 tablet by ity of ODT) 4 mg 00:00: mouth [place] disintegrat 00 every 8 Medic al ing tablet (eight) Branch hours as needed for Nausea and Vomiting (N/V). ondansetron Yes [id number] 4mg Take 1 Univers (ZOFRAN 9-09 tablet by ity of ODT) 4 mg 00:00: mouth [place] disintegrat 00 every 8 Medic al ing tablet (eight) Branch hours as needed for Nausea and Vomiting (N/V). levothyroxi 2019-0 Yes 75ug Take 75 MD ne 7-24 mcg by Anderso (SYNTHROID, 09:58: mouth n LEVOTHROID) 25 daily. 75 mcg tablet amLODIPine- 2019-0 Yes Take by MD benazepril 7-24 mouth at [place] so (LOTREL) 10 09:58: bedtime. n mg-40 mg 25 per capsule rivaroxaban 2019-0 Yes 10mg Take 10 mg MD (XARELTO) 7-24 by mouth Jesús o 10 mg 09:58: daily. n tablet 25 metFORMIN 2019-0 Yes 1000mg Take 1,000 MD (GLUCOPHAGE 7-24 mg by Anderso ) 500 mg 09:58: mouth 2 n tablet 25 (two) times a day with meals. sitaGLIPtin 2019-0 Yes Take by MD -metFORMIN 7-24 mouth 2 Jesús o (JANUMET) 09:58: (two) n 50 mg-1,000 25 times a mg per day with tablet meals. atorvastati 2018-05 No Notes: Chema zana n 2-09 (Same as: l 03:00: Lipitor) Alba 00 atorvastati 2018-05 Yes 20 mg = 1 M emoria n 20 MG 2-08 tab, PO, l Oral Tablet 22:04: Bedtime, # Vik [Lipitor] 00 30 tab, 0 Refill(s), Pharmacy: [facility] #[id number] Metformin 2018-05 Yes 1,000 mg = Me moria hydrochlori 2-08 1 tab, PO, l de 1000 MG 22:04: BID-Meals, H ermann Oral Tablet 00 # 30 tab, 0 Refill(s), Pharmacy: [facility] #[id number] canaglifloz 2018-05 Yes 100 mg = 1 Memoria in 100 MG 2-08 tab, PO, l Oral Tablet 22:04: Before Herm filemon [Invokana] 00 Breakfast, # 30 tab, 2 Refill(s), Pharmacy: [facility] #[id number] pantoprazol 2018-05 No Notes: For Memoria e 2-08 IV push l 15:00: reconstitu te with 10 ml 0.9% sodium chloride and push over 2 minutes. (Same as: Protonix) Saline 2018-05 No Notes: Memoria Flush 0.9% 2-08 (Same as: l 15:00: BD Vik 00 Posiflush) Insulin 2018-05 No Notes: Memoria Glargine 2-08 (Same as: l 15:00: Lantus) Do not hold insulin without contacting prescriber WASTE: F/P - Black; E - Municipal Trash Bin "single patient use only" Stable for 28 days at room temperatur e Expires in days from ____Date heparin 2018-05 No Notes: Memoria 2-08 porcine l 06:00: heparin Aspirin 81 2018-05 No Notes: Do Me moria MG Enteric 2-08 not crush l Coated 05:16: or chew. Alba Tablet 00 (Same As: Ecotrin) Dextrose 2018-05 No 12.5 gm, Memor ia 50% Syringe 2-08 25 mL, l (D50W) 05:07: Route: Alba 00 IVP, Drug Form: INJ, Dosing Weight 86.477, kg, PRN, PRN Blood Glucose Results, Start date: 05/04/19 23:07:00 SCIENCE EDITOR, Duration: 30 day, Stop date: 06/03/19 23:06:00 SCIENCE EDITOR, 0 Glucagon 2018-05 No 1 mg, Memoria 2-08 Route: IM, l 05:07: Drug form: Vik 00 PDR/INJ, PRN, Dosing Weight 86.477, kg, PRN Blood Glucose Results, Start date: 05/04/19 23:07:00 SCIENCE EDITOR, Duration: 30 day, Stop date: 06/03/19 23:06:00 SCIENCE EDITOR, 0 Insulin 2018-05 No Notes: Memoria Lispro [...] l Coated 05:00: or chew. Vik Tablet (Same As: Ecotrin) Acetaminoph 2018-05 No Notes: Do M emoria en -08 not exceed l 04:57: 4 gm/day. Alba (Same as: Tylenol) Saline 2018-05 No Notes: Memoria Flush 0.9% 07-06 (Same as: l 04:57: BD Vik Posiflush) influenza 2018-05 No Notes: Memori a virus 07-06 (Same as: l vaccine, 04:16: Fluzone Pradip sanchez inactivated 55 High-Dose) high-dose For 65 preservativ [...] Chloride 2-08 PO, Daily, l 04:15: 0 Alba 00 Refill(s) candesartan 2018-05 No 2 mg, PO, M emoria 2-08 Bedtime, 0 l 04:15: Refill(s) Alba 00 Metformin 2018-05 No 500 mg, Memor ia 2-08 PO, 0 l 04:15: Refill(s) Alba potassium Yes TAKE 1 MD chloride 4-22 TABLET BY Jesús o (K-DUR,KLOR 00:00: MOUTH n -CON M) 10 00 EVERY DAY mEq tablet candesartan 2015- Yes take 1 (YAMILA) 4 2-22 tablet Jesús o mg tablet 00:00: every nigh n 00 Immunizations Ordered Immunization Filled Immunization Date Status Commen ts Source Name Name Influenza, 2018-02-28 Completed MD Rothman Unspecified 00:00:00 pneumococcal 2013-10-28 Completed [facility] 23-valent vaccine 01:27:00 Alba Vital Signs Vital Name Observation Time Observation Value Comments Source Systolic blood 2021-02-04 21:00:00 121 mm[Hg] Univer sity pressure [facility] Diastolic blood 2021-02-04 21:00:00 69 mm[Hg] [facility] Heart rate 2021-02-04 21:00:00 68 /min [facility] Respiratory rate 2021-02-04 21:00:00 20 /min [facility] Oxygen saturation in 2021-02-04 21:00:00 98 /min [facility] Arterial blood by [facility] Pulse oximetry Ocate Body temperature 2021-02-04 18:30:00 36.44 Belen [facility] Body weight 2021-02-04 18:30:00 90.719 kg [facility] WEIGHT 2019-12-20 09:44:00 87.9 kg Temperature Oral (F) 2019-05-05 18:10:00 97.2 F [facility] Vik Heart Rate 2019-05-05 18:10:00 [facility] Vik Respitory Rate 2019-05-05 18:10:00 Memori al Alba Systolic (mm Hg) 2019-05-05 18:10:00 Chema rial Alba Diastolic (mm Hg) 2019-05-05 18:10:00 Mem orial Vik Temperature Oral (F) 2019-05-05 14:15:00 97.3 F [facility] Vik Heart Rate 2019-05-05 14:15:00 [facility] Respitory Rate 2019-05-05 14:15:00 Memori al Vik Systolic (mm Hg) 2019-05-05 14:15:00 Chema rial Vik Diastolic (mm Hg) 2019-05-05 14:15:00 Mem orial Vik Temperature Oral (F) 2019-05-05 10:24:00 97.3 F Katherine Chery Heart Rate 2019-05-05 10:24:00 Katherine Chery Respitory Rate 2019-05-05 10:24:00 Kelly pineda Alba Systolic (mm Hg) 2019-05-05 10:24:00 Chema rial Alba Diastolic (mm Hg) 2019-05-05 10:24:00 Mem orial Alba Height 2019-05-05 04:10:00 187.96 cm [facility] Vik Weight 2019-05-05 04:10:00 [facility] Vik BMI Calculated 2019-05-05 04:10:00 Kelly Ochoa Procedures Procedure Date / Time Performed Performing Clinician Sour e URINALYSIS 2021-02-04 19:29:00 Antonia Griffiths [facility] COMP. METABOLIC PANEL 2021-02-04 19:28:00 Antonia Griffiths [facility] ([id number]) [facility] CBC WITH DIFF 2021-02-04 19:28:00 Antonia Griffiths [facility] COVID-19 (ID NOW RAPID 2021-02-04 19:28:00 Antonia Griffiths [facility] TESTING) [facility] NOTICE OF PRIVACY 2021-02-04 18:23:58 Doctor Unassigned, No Univ [facility] PRACTICES Name [facility] CONSENT/REFUSAL FOR 2021-02-04 18:23:46 Doctor Unassigned, No [facility] DIAGNOSIS AND Name Medical Ocate TREAT[facility] Plan of Care Planned Activity Planned Date Details Comments Source Future Scheduled Test 1947 00:00:00 COVID-19 Vaccination MD Rothman (1) [code = COVID-19 Vaccination (1)] Encounters Start End Encounter Admission Attending Care Care Encounter Source Date/Time Date/Time Type Type Clinicians Facility Department ID 2021-03-29 Emergency [facility] [id number] Univers 21:33:06 ity [facility] [place] [facility] 2020-12-08 Outpatient [facility] [id number] [place] 09:50:[address] [facility] 2020-10-03 Outpatient [facility] [id number] [place] 03:25:33 Manuela CORDOVA 2019-12-16 Outpatient MDA TARYN [id number] 07:06:56 Prisca sanchez 2021-02-04 2021-02-04 Emergency Aye [facility] [id number] Univers 13:39:00 18:19:00 Antoina Reno [id number] i ty [facility] [id number] [facility] [id number] [facility] 084 Branch 2021-02-04 2021-02-04 Orders Doctor LINH [id number] Univers 00:00:00 00:00:00 Only Unassigned, FARZANA [id number] ity of [place] [facility] 4.2.7.2.686 Jose as [id number] [facility] 009 Branch 2020-10-13 2020-10-17 Inpatient E TO, [facility] [id number] [facility] 17:23:00 10:25:00 ANJASABINA 2020-06-04 2020-06-04 Outpatient BIGG, [facility] CAR 7501 [facility] 08:45:00 23:59:00 KATELYN 2020-01-25 2020-01-25 Telephone LINH Jennings [id number] [facility] 00:00:00 00:00:00 Ashley YANES [id number] i ty of [facility] 4.2.7.2.686 Jose as [id number] [facility] 019 Branch 2020-01-25 2020-01-25 Telephone LINH Jennings [id number] 00:00:00 00:00:00 Ashley YANES [id number] [place] [id number] 2020-01-24 2020-01-24 Outpatient Rosa NUR [facility] [id number] Univers 16:40:00 16:40:00 MARCELA mooney of [facility] 2020-01-24 2020-01-24 Laboratory Lab, Adc Fam Pob I [facility] [id number] Univers 14:45:15 15:30:48 Only Anene, Marcela Health 350.1.13.10 ity [facility] [id number] Jose as Professio [phone] Me dical [address] 2020-01-24 2020-01-24 Laboratory Lab, [facility] [id number] 14:45:15 15:30:48 Only Fam Pob I Health 350.1.13.10 [place] 4.2.7.2.686 Professio [id number] nal [facility] Office [address] 2020-01-24 2020-01-24 Outpatient R [facility] [id number] Univers 15:15:00 15:15:00 [id number] ity [facility] 2019-12-20 2019-12-20 Outpatient MAITE MARCIAL MDA MDA [id number] 09:37:45 11:58:12 NAHID sanchez 2019-12-20 2019-12-20 Outpatient MAITE MARCIAL, MDA MDA [id number] 10:47:51 10:47:51 NAHID sanchez 2019-12-20 2019-12-20 Outpatient MAITE MARCIAL, MDA MDA [id number] 00:00:00 00:00:00 NAHID sanchez 2019-12-18 2019-12-18 Outpatient MAITE GRANT MDA MDA [id number] 09:29:08 23:59:00 TONIA sanchez 2019-12-16 2019-12-16 Outpatient MAITE GRANT MDA MDA [id number] 06:25:15 06:25:15 TONIA sanchez 2019-05-05 2019-05-05 Observatio nullFlavo [facility] [id number] Memoria 04:57:00 22:54:00 laura Chery 41 l [facility] 2019-05-04 2019-05-04 Outpatient U [facility] MED [id number] [facility] 22:57:00 22:57:00 2013-12-06 2013-12-07 Outpatient nullFlavo [facility] [id number] Memoria 18:00:00 04:59:00 rosa Chery 00 l JENISE Alba 2013-12-06 2013-12-07 Outpt Diag nullFlavo [facility] [id number] Memoria 15:19:00 04:59:00 Services r Outpatient 00 l Imaging Albafilemon Fayeann Results Test Description Test Time Test Comments Results Result Comments Source COMP. METABOLIC PANEL ([id number]) 2021-02-04 20:24:39 Test Item Value Reference Range Interpretation Comme nts NA (test code = 4069881614) 136 mmol/L 135-145 K (test code = 8372065643) 4.2 mmol/L 3.5-5.0 CL (test code = 9096472295) 102 mmol/L 98-108 CO2 TOTAL (test code = 3170589169) 21 mmol/L 23-31 L AGAP (test code = 5853546706) 2-16 BUN (test code = 8458737553) 27 mg/dL 7-23 H GLUCOSE (test code = 9429183663) 133 mg/dL 70-110 H CREATININE (test code = 1.27 mg/dL 0.60-1.25 H 3990342505) TOTAL BILI (test code = 1.6 mg/dL 0.1-1.1 H 0121354696) CALCIUM (test code = 7512252732) 9.1 mg/dL 8.6-10.6 T PROTEIN (test code = 9119147919) 6.9 g/dL 6.3-8.2 ALBUMIN (test code = 2005970821) 3.7 g/dL 3.5-5.0 ALK PHOS (test code = 0600435176) 78 U/L 34-122 ALTv (test code = 1742-6) 34 U/L 5-50 AST(SGOT) (test code = 5010308688) 43 U/L 13-40 H eGFR (test code = 3512017532) mL/min/1.73m2 DANIEL (test code = DANIEL) Association of Glomerular Filtration Rate (GFR) and Staging of Kidney Disease* + +-------- + ------+| GFR (mL/min/1.73 m2) ?| With Kidney Damage ?| ?Without Kidney Damage+ +-- + +| ?>90 ?| ?Stage one ?| ? Normal ?+ +------- + -------+| ?60-89 ?| ?Stage two ?| ? Decreased GFR ? + +-------- + ------+| ?30-59 ?| ?Stage three ?| ? Stage three ? + +-------- + ------+| ?15-29 ?| ?Stage four ? | ? Stage four ?+ +------- + -------+| ?<15 (or dialysis) ? ?| ?Stage five ? | ? Stage five ?+ +------- + -------+ *Each stage assumes the associated GFR level has been in effect for at least three months. ?Stages 1 to 5, with or without kidney disease, indicate chronic kidney disease. Notes: Determination of stages one and two (with eGFR >59mL/min/1.73 m2) requires estimation of kidney damage for at least three months as defined by structural or functional abnormalities of the kidney, manifested by either:Pathological abnormalities or Markers of kidney damage (including abnormalities in the composition of the blood or urine or abnormalities in imaging tests). Lab Interpretation (test code = Abnormal 39062-8) [facility]. METABOLIC PANEL ([id number])2021-02-04 20:24:39 Test Item Value Reference Range Interpretation Comments NA (test code = 136 mmol/L 135-145 2278385090) K (test code = 4.2 mmol/L 3.5-5.0 1912334535) CL (test code = 102 mmol/L 98-108 0872926937) CO2 TOTAL (test code = 21 mmol/L 23-31 L 7588874833) AGAP (test code = 2-16 2813545158) BUN (test code = 27 mg/dL 7-23 H 4178881160) GLUCOSE (test code = 133 mg/dL 70-110 H 5271179340) CREATININE (test code = 1.27 mg/dL 0.60-1.25 H 6751078685) TOTAL BILI (test code = 1.6 mg/dL 0.1-1.1 H 3678154576) CALCIUM (test code = 9.1 mg/dL 8.6-10.6 7614003749) T PROTEIN (test code = 6.9 g/dL 6.3-8.2 2967522133) ALBUMIN (test code = 3.7 g/dL 3.5-5.0 1305081544) ALK PHOS (test code = 78 U/L 34-122 3211998873) ALTv (test code = 34 U/L 5-50 1742-6) AST(SGOT) (test code = 43 U/L 13-40 H 3478224249) eGFR (test code = mL/min/1.73m2 6524813791) DANIEL (test code = DANIEL) Association of Glomerular Filtration Rate (GFR) and Staging of Kidney Disease* + --+ --+ ------+| GFR (mL/min/1.73 m2) ?| With Kidney Damage ?| ?Without Kidney Damage+ --------+ --------+ +| ?>90 ?| ?Stage one ?| ? Normal ?+ ---+ ---+ -------+| ?60-89 ?| ?Stage two ?| ? Decreased GFR ? + --+ --+ ------+| ?30-59 ?| ?Stage three ?| ? Stage three ? + --+ --+ ------+| ?15-29 ?| ?Stage four ? | ? Stage four ?+ ---+ ---+ -------+| ?<15 (or dialysis) ? ?| ?Stage five ? | ? Stage five ?+ ---+ ---+ -------+ *Each stage assumes the associated GFR level has been in effect for at least three months. ?Stages 1 to 5, with or without kidney disease, indicate chronic kidney disease. Notes: Determination of stages one and two (with eGFR >59mL/min/1.73 m2) requires estimation of kidney damage for at least three months as defined by structural or functional abnormalities of the kidney, manifested by either:Pathological abnormalities or Markers of kidney damage (including abnormalities in the composition of the blood or urine or abnormalities in imaging tests). Lab Interpretation Abnormal (test code = 66460-1) [facility] [id number] 19:52:11 Test Item Value Reference Range Interpretation Comments APPEARANCE (test code = Clear Clear 5829014653) COLOR (test code = Yellow Yellow 5816628188) PH (test code = 4.8-8.0 1911338103) SP GRAVITY (test code = 1.003-1.030 6056070780) GLU U QUAL (test code = Normal Normal 1476269670) BLOOD (test code = Negative Negative 1314375886) KETONES (test code = Negative Negative 7276961820) PROTEIN (test code = Negative Negative 2887-8) UROBILIN (test code = Normal Normal 8315151824) BILIRUBIN (test code = Negative Negative 3562793612) NITRITE (test code = Negative Negative 9815977405) LEUK DANELLE (test code = Negative Negative 3941104464) RBC/HPF (test code = See_Comment [Autom ated message] 1724458420) The system [employer] generated this result transmitted ref erence range: 0 - 3 HP F. The reference range was not used to int erpret this result as normal/abnormal . WBC/HPF (test code = See_Comment [Autom ated message] 3076480908) The system [employer] generated this result transmitted ref erence range: 0 - 5 HP F. The reference range was not used to int erpret this result as normal/abnormal . BACTERIA (test code = Negative Negative 4684208841) MUCOUS (test code = Slight Negative LPF A 9951519421) HYAL CAST (test code = See_Comment H [Aut omated message] 2407569707) The system [employer] generated this result transmitted ref erence range: <=2 LPF. The reference range was not used to int erpret this result as normal/abnormal . Lab Interpretation (test Abnormal code = 65679-5) [facility]11 Test Item Value Reference Range Interpretation Comments APPEARANCE (test code = Clear Clear 1824024294) COLOR (test code = Yellow Yellow 7578070898) PH (test code = 4.8-8.0 8401972006) SP GRAVITY (test code = 1.003-1.030 1326019079) GLU U QUAL (test code = Normal Normal 6567454636) BLOOD (test code = Negative Negative 8791746565) KETONES (test code = Negative Negative 0977759514) PROTEIN (test code = Negative Negative 2887-8) UROBILIN (test code = Normal Normal 5237710598) BILIRUBIN (test code = Negative Negative 6670893411) NITRITE (test code = Negative Negative 8918014607) LEUK DANELLE (test code = Negative Negative 9934567293) RBC/HPF (test code = See_Comment [Autom ated message] 8315133115) The system [employer] generated this result transmitted ref erence range: 0 - 3 HP F. The reference range was not used to int erpret this result as normal/abnormal . WBC/HPF (test code = See_Comment [Autom ated message] 2129442659) The system [employer] generated this result transmitted ref erence range: 0 - 5 HP F. The reference range was not used to int erpret this result as normal/abnormal . BACTERIA (test code = Negative Negative 1340417379) MUCOUS (test code = Slight Negative LPF A 2262408817) HYAL CAST (test code = See_Comment H [Aut omated message] 7806203239) The system [employer] generated this result transmitted ref erence range: <=2 LPF. The reference range was not used to int erpret this result as normal/abnormal . Lab Interpretation (test Abnormal code = 85705-3) [facility]-19 (ID NOW RAPID TESTING)2021-02-04 19:49:28 Test Item Value Reference Range Interpretation Comments SARS-CoV-2 Rapid ID NOW Positive Not Detected A (test code = 24282-2) DANIEL (test code = DANIEL) ID NOW COVID-19 Assay is an isothermal nucleic acid amplification test intended for the qualitative detection of nucleic acid from SARS-CoV-2 viral RNA in nasopharyngeal (INTER COM SERVICER) specimens. It is used under Emergency Use Authorization (EUA) by FDA. The limit of detection (LOD) of the assay is 125 Genome Equivalents/mL. A positive result is indicative of the presence of SARS-CoV-2 RNA. ?Clinical correlation with patient history and other diagnostic information is necessary to determine patient infection status. A negative (Not Detected) result does not preclude SARS-CoV-2 infection. In patients with a high suspicion of SARS-CoV-2 infection, negative results should be treated as presumptive negative and a new specimen should be tested with alternative nucleic acid amplification molecular test. Invalid: Please collect a new specimen for repeat patient testing if clinically indicated. Lab Interpretation Abnormal (test code = 45787-5) [facility]-19 (ID NOW RAPID TESTING)2021-02-04 19:49:28 Test Item Value Reference Range Interpretation Comments SARS-CoV-2 Rapid ID NOW Positive Not Detected A (test code = 64520-9) DANIEL (test code = DANIEL) ID NOW COVID-19 Assay is an isothermal nucleic acid amplification test intended for the qualitative detection of nucleic acid from SARS-CoV-2 viral RNA in nasopharyngeal (INTER COM SERVICER) specimens. It is used under Emergency Use Authorization (EUA) by FDA. The limit of detection (LOD) of the assay is 125 Genome Equivalents/mL. A positive result is indicative of the presence of SARS-CoV-2 RNA. ?Clinical correlation with patient history and other diagnostic information is necessary to determine patient infection status. A negative (Not Detected) result does not preclude SARS-CoV-2 infection. In patients with a high suspicion of SARS-CoV-2 infection, negative results should be treated as presumptive negative and a new specimen should be tested with alternative nucleic acid amplification molecular test. Invalid: Please collect a new specimen for repeat patient testing if clinically indicated. Lab Interpretation Abnormal (test code = 61321-8) [facility] WITH [id number] 19:40:04 Test Item Value Reference Range Interpretation Comments WBC (test code = See_Comment [Automated 1559-2) message] The sy stem which generated this result transmitted reference range : 4.20 - 10.70 10*3/?L. The reference range was not used to interpret this result as normal/abnormal . RBC (test code = See_Comment [Automated 764-8) message] The sy stem which generated this result transmitted reference range : 4.26 - 5.52 10*6/?L. The reference range was not used to interpret this result as normal/abnormal . HGB (test code = 16.1 g/dL 12.2-16.4 718-7) HCT (test code = 47.8 % 38.4-49.3 4544-3) MCV (test code = 88.7 fL 81.7-95.6 787-2) MCH (test code = 29.9 pg 26.1-32.7 785-6) MCHC (test code = 33.7 g/dL 31.2-35.0 786-4) RDW-SD (test code = 45.6 fL 38.5-51.6 67364-0) RDW-CV (test code = 14.1 % 12.1-15.4 788-0) PLT (test code = See_Comment [Automated 764-3) message] The sy stem which generated this result transmitted reference range : 150 - 328 10*3/ ?L. The reference r shayna was not used to interpret this result as normal/abnormal . MPV (test code = 10.8 fL 9.8-13.0 56012-4) NRBC/100 WBC (test See_Comment [Automat ed code = 6326584752) message] The system which generated this result transmitted reference range : 0.0 - 10.0 /100 WBCs. The refer ence range was not u sed to interpret th is result as normal/abnormal . NRBC x10^3 (test code <0.01 See_Comment [Auto mated = 7936187288) message] The s ystem which generated this result transmitted reference range : 10*3/?L. The reference range was not used to interpret this result as normal/abnormal . GRAN MAT (NEUT) % 73.3 % (test code = 770-8) IMM GRAN % (test code 0.60 % = 7385560225) LYMPH % (test code = 10.4 % 736-9) MONO % (test code = 15.2 % 5905-5) EOS % (test code = 0.1 % 713-8) BASO % (test code = 0.4 % 706-2) GRAN MAT x10^3(ANC) 6.04 10*3/uL 1.99-6.95 (test code = 9841804944) IMM GRAN x10^3 (test 0.05 10*3/uL 0.00-0.06 code = 2149832976) LYMPH x10^3 (test code 0.86 10*3/uL 1.09-3.23 L = 731-0) MONO x10^3 (test code 1.25 10*3/uL 0.36-1.02 H = 742-7) EOS x10^3 (test code = <0.03 0.06-0.53 L 711-2) BASO x10^3 (test code 0.03 10*3/uL 0.01-0.09 = 704-7) Lab Interpretation Abnormal (test code = 93190-0) [facility] WITH [id number] 19:40:04 Test Item Value Reference Range Interpretation Comments WBC (test code = See_Comment [Automated 6690-2) message] The sy stem which generated this result transmitted reference range : 4.20 - 10.70 10*3/?L. The reference range was not used to interpret this result as normal/abnormal . RBC (test code = See_Comment [Automated 789-8) message] The sy stem which generated this result transmitted reference range : 4.26 - 5.52 10*6/?L. The reference range was not used to interpret this result as normal/abnormal . HGB (test code = 16.1 g/dL 12.2-16.4 718-7) HCT (test code = 47.8 % 38.4-49.3 4544-3) MCV (test code = 88.7 fL 81.7-95.6 787-2) MCH (test code = 29.9 pg 26.1-32.7 785-6) MCHC (test code = 33.7 g/dL 31.2-35.0 786-4) RDW-SD (test code = 45.6 fL 38.5-51.6 52095-5) RDW-CV (test code = 14.1 % 12.1-15.4 788-0) PLT (test code = See_Comment [Automated 777-3) message] The sy stem which generated this result transmitted reference range : 150 - 328 10*3/ ?L. The reference r shayna was not used to interpret this result as normal/abnormal . MPV (test code = 10.8 fL 9.8-13.0 47946-3) NRBC/100 WBC (test See_Comment [Automat ed code = 2883911214) message] The system which generated this result transmitted reference range : 0.0 - 10.0 /100 WBCs. The refer ence range was not u sed to interpret th is result as normal/abnormal . NRBC x10^3 (test code <0.01 See_Comment [Auto mated = 8283431384) message] The s ystem which generated this result transmitted reference range : 10*3/?L. The reference range was not used to interpret this result as normal/abnormal . GRAN MAT (NEUT) % 73.3 % (test code = 770-8) IMM GRAN % (test code 0.60 % = 2819276574) LYMPH % (test code = 10.4 % 736-9) MONO % (test code = 15.2 % 5905-5) EOS % (test code = 0.1 % 713-8) BASO % (test code = 0.4 % 706-2) GRAN MAT x10^3(ANC) 6.04 10*3/uL 1.99-6.95 (test code = 7362395782) IMM GRAN x10^3 (test 0.05 10*3/uL 0.00-0.06 code = 8165828509) LYMPH x10^3 (test code 0.86 10*3/uL 1.09-3.23 L = 731-0) MONO x10^3 (test code 1.25 10*3/uL 0.36-1.02 H = 742-7) EOS x10^3 (test code = <0.03 0.06-0.53 L 711-2) BASO x10^3 (test code 0.03 10*3/uL 0.01-0.09 = 704-7) Lab Interpretation Abnormal (test code = 02002-3) [facility] NQKDEJN9348-30-35 14:46:00<0.02 [facility] DMDKWZJ2525-64-81 08:56:00<0.02[facility] HermannCHEM RVMCI4653-64-24 08:56:97741Nkyjinaj HermannCHEM GIOUH5204-55-21 08:56:0015 [facility]annCHEM RGRFU3345-66-22 08:56:000.88[facility]annCHEM PANEL 2019-05-05 08:56:18800Yifkxwxn HermannCHEM JABME8023-40-55 08:56:003.7[facility]annCHEM AVAJZ0988-27-74 08:56:24043Yghbnoky HermannCHEM WPWBN4585-88-93 08:56:0024[facility] HermannCHEM CQVFS4243-39-16 08:56:008.4[facility] HermannCHEM JBJJL4618-22-49 08:56:0079[facility]annCHEM KHLCI4315-26-76 08:56:0010.7 [facility] LjolcwbPHFZVUULZS5378-93-51 08:56:007.6[facility] HermannHEMATOLOGY 2019-05-05 08:56:004.56[facility] OkoyldsVVLAYFYZHO9698-96-94 08:56:0013.8[facility] InyspvxZBTTZEUFJV2300-02-46 08:56:0041.0[facility] SzbtfuvWOWUFYMUJN4875-47-92 08:56:0089.9[facility] JjkmwclGCMEKLRKKG7478-04-97 08:56:00 Test Item Value Reference Range Interpretation Comments MCH (test code = MCH) 30.3 pg 27.0-31.0 [facility] CpjooylYTIOOUUIDN2842-29-41 08:56:0033.7[facility] HermannHEMATOLOGY 2019-05-05 08:56:0014.5[facility] RdythabVNBMWNUTMR2811-72-06 08:56:46729Ojrcgatj LecgpawYHBGPEONJN1276-54-98 08:56:008.6[facility] XlnuysqXWPVDLBPVD8827-46-87 08:56:0067.4[facility] MsmdbuqBQZJQCYRHH1422-89-88 08:56:0019.8[facility] IJFLYLJAWJ8608-46-81 08:56:009.8[facility] PbctkmnBKQAQJOUOL8980-13-52 08:56:002.0 [facility] AnumtqzOEZGPDIEVS7441-68-66 08:56:001.0[facility] HermannHEMATOLOGY 2019-05-05 08:56:005.1[facility] WvbpcdcHJMKZPCVRT8117-67-94 08:56:001.5[facility] BzmzbkkJHNLWSCEBO4756-88-10 08:56:000.7[facility] ZmrorrmXNHIHPCETO6606-89-05 08:56:000.2[facility] OkzovufDECYOKKONW5184-34-11 08:56:000.1[facility] Vik CHVMUA6180-59-04 08:56:00 Test Item Value Reference Range Interpretation Comments CHD Risk (test code = CHD Risk) 4.74 1 4.00-7.30 [facility] ScngoejVTOBME5845-58-26 08:56:51627Wyelwlxo OdjwqwdIRRNER4864-08-43 08:56:77223Glbtuzrq HkojnomBWFCKC0541-21-95 08:56:0034[facility] HermannLIPIDS 2019-05-05 08:56:93587Lbskkozg LfysqwkHBUAWT7497-55-22 08:56:00 Test Item Value Reference Range Interpretation Comments VLDL (test code = VLDL) 22 1 [facility] HermannSPECIAL MYKRAWMKI9647-13-83 08:56:008.9[facility] Vik VXBHNQGVSK2385-59-12 08:31:008.2[facility] LobxoznPKHMYMJMXQ6359-63-91 08:31:00 Test Item Value Reference Range Interpretation Comments PTT (test code = PTT) 31.5 s 22.9-35.8 [facility] SbfiatmIBFMMOKZKB5269-81-80 08:31:00 Test Item Value Reference Range Interpretation Comments INR (test code = INR) 1.15 1 0.85-1.17 [facility] BqfcyeaYHORUKRZLR3305-32-59 08:31:00 Test Item Value Reference Range Interpretation Comments PT (test code = PT) 14.5 s 12.0-14.7 [facility] MfwikjoBJAXWWRABT1208-17-96 08:31:00Non-Reactive *NA*(05/05/19 2:31 AM) [facility] AND QQZFO8296-49-09 08:31:00Clear (05/05/19 2:31 AM) [facility] UQLNW9540-76-03 08:31:00 Test Item Value Reference Range Interpretation Comments UA Spec Grav (test code = UA Spec 1.006 1 Grav) [facility] CYWPT9446-71-57 08:31:00 Test Item Value Reference Range Interpretation Comments UA pH (test code = UA pH) 7.0 1 5.0-8.0 [facility] WCUGW7422-91-01 08:31:00Negative *NA*(05/05/19 2:31 AM) [facility] ZSYWH8873-94-11 08:31:00Negative (05/05/19 2:31 AM) [facility] PKZEJ5132-40-06 08:31:00Negative (05/05/19 2:31 AM) [facility] MDVQS5181-45-60 08:31:00Negative (05/05/19 2:31 AM) [facility] WTFHF4614-24-30 08:31:85550Teruxccm HermannCARDIAC RLSIWOY8512-65-41 08:31:00<0.02[facility] HermannCHEM DVSBK6016-59-02 08:31:00 267[facility] HermannCHEM DDIAP1720-07-77 08:31:0015[facility] HermannCHEM PANEL 2019-05-05 08:31:000.99[facility] HermannCHEM UFMCS2964-41-50 08:31:75950Qkdotmon HermannCHEM FMOQX4223-96-11 08:31:004.1[facility] HermannCHEM CDSZT7645-09-56 08:31:56411Mgxvnisk HermannCHEM YGWTB0483-20-73 08:31:0027[facility]annCHEM VACJY6981-57-60 08:31:008.9[facility] HermannCHEM XKQZQ9341-86-54 08:31:006.1 [facility]annCHEM NUEGT4305-62-59 08:31:003.4[facility] HermannCHEM PANEL 2019-05-05 08:31:0016[facility] HermannCHEM IHVCK5457-73-48 08:31:0010[facility] HermannCHEM IMNKH6477-36-27 08:31:0053[facility] HermannCHEM WDHBD5382-63-61 08:31:000.7[facility] HermannCHEM EAHGA4247-22-33 08:31:0070[facility] HermannCHEM YMITK6913-48-93 08:31:0010.1[facility] HermannCHEM HKWWU1107-26-06 08:31:00 Test Item Value Reference Range Interpretation Comments B/C Ratio (test code = B/C Ratio) 15 1 6-25 [facility]annCHEM NRKWY6381-75-58 08:31:002.7[facility] HermannCHEM PANEL 2019-05-05 08:31:00 Test Item Value Reference Range Interpretation Comments A/G Ratio (test code = A/G Ratio) 1.3 1 0.7-1.6 [facility] PmnhfdgKBZBUEDWPN3447-48-87 08:31:0067.3[facility] HermannHEMATOLOGY 2019-05-05 08:31:0020.3[facility] IzcidfxTYDLRBRPPA5559-10-64 08:31:009.1[facility] VnihrinWBYSHDVSTN8344-88-98 08:31:002.4[facility] GdxefypOVEUKTCLVX4076-24-82 08:31:000.9[facility] GrmiqwoGRZZYMBCQI0134-13-97 08:31:005.4[facility] Vik GDCKKCWDHU6390-88-16 08:31:001.6[facility] WrbnqiwPBBGBHLOTD0167-70-32 08:31:000.7 [facility] RliiodoHTECUOHPDL7260-42-60 08:31:000.2[facility] HermannHEMATOLOGY 2019-05-05 08:31:000.1[facility] KanpsqvLUPDRFPUUF6938-88-36 08:31:008.0[facility] QtvmjxgKVTBAIALSY1593-35-50 08:31:004.65[facility] DucldkmRHTPNHFXMD5110-79-69 08:31:0014.0[facility] DguyoykAZMDRAFRHN1473-89-93 08:31:0041.8[facility] MYITXPXEGT5198-63-67 08:31:0089.8[facility] QgzrkmyXNWCXOGEFC9967-21-63 08:31:00 Test Item Value Reference Range Interpretation Comments MCH (test code = MCH) 30.1 pg 27.0-31.0 [facility] XbaqvaoHMXTEQOLVY1504-77-53 08:31:0033.5[facility] HermannHEMATOLOGY 2019-05-05 08:31:0014.5[facility] WlrianlWTEDBFMAGH6879-83-41 08:31:81399Uxwztcam Alba
--- NOTE | 2021-06-14 15:04 | RAD REPORT ---
EXAM DESCRIPTION: CT - CTHCSPWOC - 06/14/2021 2:52 pm CLINICAL HISTORY: PAINfall with head and neck injury left periorbital laceration, anticoagulation th erapy COMPARISON: <Comparisons> TECHNIQUE: Axial 5 mm thick images of the head were obtained. Axial 2 mm thick images of the cervic al spine were obtained with sagittal and coronal reconstruction images generated and reviewed. All CT scans are performed using dose optimization technique as appropriate and may include automated exposure control or mA/KV adjustment according to patient size. FINDINGS: No intracranial hemorrhage, mass, edema or acute intracranial finding. No suspicion for ac [place] infarction. Moderate severity atrophy and chronic ischemic changes are present. Ventricles are in proportion to volume loss. Mastoid air cells and paranasal sinuses are clear of acute finding. No gl obe or orbit abnormality seen. Cervical body height and alignment are normal. C5-6 and C6-7 significant disc space narrowing seen wi th endplate spurring. There is bilateral bony foraminal encroachment at these 2 levels. Thickening an d calcification of the transverse ligament posterior to the dens noted. There is significant degenera tive changes at the dens anterior arch C1 level. Facet joint degenerative changes are relatively mild . No fracture or acute bony abnormality. Central canal detail is inherently limited. No paraspinal mass or hematoma. IMPRESSION: Moderate severity atrophy and chronic ischemic changes are present. No acute intracrania l finding identified. Prominent degenerative changes to C5-6 and C6-7. Prominent degenerative changes are present around th e dens. No acute cervical finding identified.
--- NOTE | 2021-06-14 15:09 | ER ---
Nurse's Notes [facility] Name: Valerio France Age: 86 yrs Sex: Male : 1935 Arrival Date: 06/14/2021 Time: 10:56 Bed 14 Private MD: Diagnosis: Fall on same level, unspecified;Laceration without foreign body of other part of head-left brow, left cheek , superfical;Abrasion of left hand;Abrasion of right hand Presentation: 06/14 12:33 Chief complaint: Patient's son or daughter states: Pt was walking ramp at home and vg1 tripped and fell forward onto concrete. Pt appears to have a laceration on the side of the Left eye and Left cheek. Unsure of LOC. Pt denies h/a, dizziness, or N/V. pt states is on a blood thinner, unsure of name. Coronavirus screen: Vaccine status: Patient reports being unvaccinated. Client denies travel out of the [place] in the last 14 days. Ebola Screen: Patient negative for fever greater than or equal to 101.5 degrees Fahrenheit, and additional compatible Ebola Virus Disease symptoms. Initial Sepsis Screen: Does the patient meet any 2 criteria? No. Patient's initial sepsis screen is negative. Does the patient have a suspected source of infection? No. Patient's initial sepsis screen is negative. Risk Assessment: Do you want to hurt yourself or someone else? Patient reports no desire to harm self or others. Onset of symptoms was June 14, 2021. 12:33 Method Of Arrival: Wheelchair vg1 12:33 Acuity: VICTORINO 3 vg1 15:28 Care prior to arrival: None. Mechanism of Injury: Fall from standing position. Trauma ww event details: Injury occurred: June 14, 2021. Triage Assessment: 12:38 General: Appears in no apparent distress. comfortable, Behavior is calm, cooperative. vg1 Pain: Denies pain. Neuro: Level of Consciousness is awake, alert, obeys commands, Oriented to person, place, time, situation. Trauma Activation: Physician: ED Physician; Name: melissa; Notified At: ; Arrived At: Physician: General Surgeon; Name: ; Notified At: ; Arrived At: Physician: Radiology; Name: ; Notified At: ; Arrived At: Physician: Respiratory; Name: ; Notified At: ; Arrived At: Physician: Lab; Name: ; Notified At: ; Arrived At: Historical: - PMHx: 12:37 Diabetes - NIDDM; Hypertension; TIA; multiple myleoma; vg1 - Immunization history:: Client reports having NOT received the Covid vaccine. - Social history:: Smoking status: Patient denies any tobacco usage or history of. - Immunization history: Last tetanus immunization: - up to date. - Family history:: not pertinent. Screenin:28 Abuse screen: Denies threats or abuse. Denies injuries from another. Tuberculosis ww screening: No symptoms or risk factors identified. 15:32 Nutritional screening: No deficits noted. Fall Risk Fall in past 12 months (25 points). ww Secondary diagnosis (15 points) No IV (0 pts). Ambulatory Aid- None/Bed Rest/Nurse Assist (0 pts). Gait- Normal/Bed Rest/Wheelchair (0 pts) Mental Status- Oriented to own ability (0 pts). Total Estrella Fall Scale indicates Low Risk Score (25-44 pts). Fall prevention measures have been instituted. Side Rails Up X 2 Placed close to Nursing Station Frequent Obs/Assesments occuring Family Present and informed to notify staff if they need to leave bedside As available Patient and Family Educated on Fall Prevention Program and strategies. Primary Survey: 15:28 NO uncontrolled hemorrhage observed. A: The patient is alert. Airway: patent. ww Breathing/Chest: Respiratory pattern: regular, Respiratory effort: spontaneous. Circulation: Skin color: pink, Skin temperature: warm. Disability Alert. Exposure/Environment: There is no evidence of uncontrolled external bleeding. Obvious injury(ies) are noted at this time: left eye abrasion and left cheek abrasion. Reassessment Breathing/Chest Respiratory pattern Regular Respiratory effort Unlabored Breath sounds Clear Circulation Color [place] Temperature Warm Disability Alert. Assessment: 15:28 General: Appears in no apparent distress. comfortable, Behavior is calm, cooperative, ww appropriate for age. Neuro: Level of Consciousness is awake, alert, obeys commands, Oriented to person, place, time, situation. EENT: No deficits noted. Cardiovascular: Denies chest pain, shortness of breath, Capillary refill < 3 seconds. Respiratory: Airway is patent Respiratory effort is even, unlabored, Respiratory pattern is regular, symmetrical. GI: No deficits noted. No signs and/or symptoms were reported involving the gastrointestinal system. : No deficits noted. No signs and/or symptoms were reported regarding the genitourinary system. Derm: Skin is thin, skin tear on left eye and left cheek. Musculoskeletal: No deficits noted. No signs and/or symptoms reported regarding the musculoskeletal system. Circulation, motion, and sensation intact. Vital Signs: 12:33 BP 161 / 84; Pulse 84; Resp 17; Temp 97.4; Pulse Ox 99% ; Weight 83.91 kg; Height 6 ft. vg1 0 in. (182.88 cm); Pain 0/10; 12:33 Body Mass Index 25.09 (83.91 kg, 182.88 cm) vg1 Norberto Coma Score: 14:59 Eye Response: spontaneous(4). Verbal Response: oriented(5). Motor Response: obeys jennifer commands(6). Total: 15. 15:05 Eye Response: spontaneous(4). Verbal Response: oriented(5). Motor Response: obeys jennifer commands(6). Total: 15. 15:28 Eye Response: spontaneous(4). Verbal Response: oriented(5). Motor Response: obeys ww commands(6). Total: 15. Trauma Score (Adult): 15:28 Eye Response: spontaneous(1); Verbal Response: oriented(1); Motor Response: obeys ww commands(2); Systolic BP: > 89 mm Hg(4); Respiratory Rate: 10 to 29 per min(4); Orestes Score: 15; Trauma Score: 12 NIH Stroke Scale Scores: 14:59 NIHSS Score: 0 jennifer ED Course: 10:56 Patient arrived in ED. ja2 12:37 Triage completed. vg1 12:38 Arm band placed on. vg1 12:41 Jose Rothman MD is Attending Physician. jennifer 14:52 CT Head C Spine In Process Unspecified. EDMS 15:00 Gisselle Jackson RN is Primary Nurse. ww 15:28 Patient has correct armband on for positive identification. Bed in low position. Call ww light in reach. Side rails up X 1. Adult w/ patient. 15:28 Dressings: cleaned facial abrasions with guaze and saline. Patient maintains SpO2 ww saturation greater than 95% on room air. 15:32 No provider procedures requiring assistance completed. Patient did not have IV access ww during this emergency room visit. 15:33 Thermoregulation: warm blanket given to patient. ww Administered Medications: 15:27 Drug: Neosporin (eibyjnlf-sujhodyqmx-piustsffd) Ointment 1 application Route: Topical; ww Site: affected area; 15:27 Drug: KeFLEX (cephalexin) 500 mg Route: PO; ww Intake: 15:28 PO: 0ml; Total: 0ml. ww Outcome: 15:08 Discharge ordered by [facility] 15:28 Discharged to home ambulatory, with family. ww 15:28 Condition: stable 15:28 Patient's length of stay was not longer than 2 hours. 15:33 Discharge instructions given to patient, family, Instructed on discharge instructions, ww follow up and referral plans. medication usage, safety practices, wound care, Demonstrated understanding of instructions, follow-up care, medications, wound care, Prescriptions given X 2. 15:49 Patient left the ED. ww NIH Stroke Scale - NIH Stroke Score Date: 06/14/2021 Time: 14:59 Total Score = 0 1a. Level of Consciousness (LOC) - 0(Alert) 1b. Level of Consciousness (LOC) (Month \T\ Age) - 0(Both) 1c. LOC Commands (Open \T\ Closes Eyes/Systems Software Specialist) - 0(Both) 2. Best Gaze (Lateral Gaze Paresis) - 0(Normal) 3. Visual Field Loss - 0(No visual loss) 4. Facial Palsy - 0(Normal) 5a. Left Arm: Motor (10-second hold) - 0(No drift) 5b. Right Arm: Motor (10-second hold) - 0(No drift) 6a. Left Leg: Motor (5-second hold - always test supine) - 0(No drift) 6b. Right Leg: Motor (5-second hold - always test supine) - 0(No drift) 7. Limb Ataxia (finger/nose \T\ heel/ba - test with eyes open) - 0(Absent) 8. Sensory Loss (pinprick arms/legs/face) - 0(Normal) 9. Best Language: Aphasia (description/naming/reading) - 0(No aphasia) 10. Dysarthria (speech clarity - read or repeat words) - 0(Normal) 11. Extinction and Inattention (visual/tactile/auditory/spatial/personal) - 0(No abnormality) Initials: jennifer Signatures: Dispatcher [employer] Jose Buenrostro MD MD cha Garcia, Victoria RN RN 1 Kanchan Bowie Whitney, RN RN Corrections: (The following items were deleted from the chart) 12:39 12:33 Chief complaint: Patient's son or daughter states: Pt was walking [facility] and tripped and fell forward onto concrete. Pt appears to have a laceration on the side of the Left eye and Left cheek. Unsure of LOC. Pt denies h/a, dizziness, or N/V. vg1
--- NOTE | 2021-06-14 15:09 | EDPHYS ---
Physician Documentation [facility] Name: Valerio France Age: 86 yrs Sex: Male : 1935 Arrival Date: 06/14/2021 Time: 10:56 Bed 14 Private MD: ED Physician Jose Rothman HPI: 06/14 14:59 This 86 yrs old Male presents to ER via Wheelchair with complaints of Head jennifer Injury Without LOC-Adult, Fall Injury. 14:59 The patient or guardian reports pain, tenderness. The complaints affect the left eye. jennifer Context of injury: The problem was sustained on a street or driveway. Onset: The symptoms/episode began/occurred just prior to arrival. Associated signs and symptoms: The patient has no apparent associated signs or symptoms, Loss of consciousness: This patient did not experience any loss of consciousness. Severity of symptoms: At their worst the symptoms were mild, in the emergency department the symptoms are unchanged. The patient has not experienced similar symptoms in the past. Historical: - PMHx: 12:37 Diabetes - NIDDM; Hypertension; TIA; multiple myleoma; vg1 - Immunization history:: Client reports having NOT received the Covid vaccine. - Social history:: Smoking status: Patient denies any tobacco usage or history of. - Immunization history: Last tetanus immunization: - up to date. - Family history:: not pertinent. ROS: 14:59 Constitutional: Negative for fever, chills, and weight loss, Eyes: Negative for injury, jennifer pain, redness, and discharge, ENT: Negative for injury, pain, and discharge, Neck: Negative for injury, pain, and swelling, Cardiovascular: Negative for chest pain, palpitations, and edema, Respiratory: Negative for shortness of breath, cough, wheezing, and pleuritic chest pain, Abdomen/GI: Negative for abdominal pain, nausea, vomiting, diarrhea, and constipation, Back: Negative for injury and pain, : Negative for injury, bleeding, discharge, and swelling, MS/Extremity: Negative for injury and deformity, Neuro: Negative for headache, weakness, numbness, tingling, and seizure, Psych: Negative for depression, anxiety, suicide ideation, homicidal ideation, and hallucinations, Allergy/Immunology: Negative for hives, rash, and allergies, Endocrine: Negative for neck swelling, polydipsia, polyuria, polyphagia, and marked weight changes, Hematologic/Lymphatic: Negative for swollen nodes, abnormal bleeding, and unusual bruising. 14:59 Skin: Positive for laceration(s), swelling, of the face. Exam: 14:59 Constitutional: This is a well developed, well nourished patient who is awake, alert, jennifer and in no acute distress. Eyes: Pupils equal round and reactive to light, extra-ocular motions intact. Lids and lashes normal. Conjunctiva and sclera are non-icteric and not injected. Cornea within normal limits. Periorbital areas with no swelling, redness, or edema. ENT: Nares patent. No nasal discharge, no septal abnormalities noted. Tympanic membranes are normal and external auditory canals are clear. Oropharynx with no redness, swelling, or masses, exudates, or evidence of obstruction, uvula midline. Mucous membranes moist. Neck: Trachea midline, no thyromegaly or masses palpated, and no cervical lymphadenopathy. Supple, full range of motion without nuchal rigidity, or vertebral point tenderness. No Meningismus. Chest/axilla: Normal chest wall appearance and motion. Nontender with no deformity. No lesions are appreciated. Cardiovascular: Regular rate and rhythm with a normal S1 and S2. No gallops, murmurs, or rubs. Normal PMI, no JVD. No pulse deficits. Respiratory: Lungs have equal breath sounds bilaterally, clear to auscultation and percussion. No rales, rhonchi or wheezes noted. No increased work of breathing, no retractions or nasal flaring. Abdomen/GI: Soft, non-tender, with normal bowel sounds. No distension or tympany. No guarding or rebound. No evidence of tenderness throughout. Back: No spinal tenderness. No costovertebral tenderness. Full range of motion. Male : Normal genitalia with no discharge or lesions. Skin: Warm, dry with normal turgor. Normal color with no rashes, no lesions, and no evidence of cellulitis. Neuro: Awake and alert, GCS 15, oriented to person, place, time, and situation. Cranial nerves II-XII grossly intact. Motor strength 5/5 in all extremities. Sensory grossly intact. Cerebellar exam normal. Normal gait. Psych: Awake, alert, with orientation to person, place and time. Behavior, mood, and affect are within normal limits. 14:59 Head/face: Noted is contusion, that is superficial, of the left cheek and left alevism, erythema. 14:59 Musculoskeletal/extremity: ROM: intact in all extremities, full active range of motion, full passive range of motion, Circulation is intact in all extremities. Sensation intact. Compartment Syndrome exam of affected extremity: is normal. Joints: All joints appear normal with full range of motion. DVT Exam: negative Homans' sign noted on exam, no appreciated bluish discoloration, no erythema, no increased warmth, pain, swelling, tenderness. 14:59 Skin: injury, avulsion(s), a small of the right hand and left hand, laceration(s), the wound is approximately .5 cm(s), with a depth of .25 cm(s), of the left cheek and left eye. Vital Signs: 12:33 BP 161 / 84; Pulse 84; Resp 17; Temp 97.4; Pulse Ox 99% ; Weight 83.91 kg; Height 6 ft. vg1 0 in. (182.88 cm); Pain 0/10; 12:33 Body Mass Index 25.09 (83.91 kg, 182.88 cm) vg1 NIH Stroke Scale Scores: 14:59 NIHSS Score: 0 jennifer [place] Coma Score: 14:59 Eye Response: spontaneous(4). Verbal Response: oriented(5). Motor Response: obeys jennifer commands(6). Total: 15. 15:05 Eye Response: spontaneous(4). Verbal Response: oriented(5). Motor Response: obeys jennifer commands(6). Total: 15. 15:28 Eye Response: spontaneous(4). Verbal Response: oriented(5). Motor Response: obeys commands(6). Total: 15. Trauma Score (Adult): 15:28 Eye Response: spontaneous(1); Verbal Response: oriented(1); Motor Response: obeys ww commands(2); Systolic BP: > 89 mm Hg(4); Respiratory Rate: 10 to 29 per min(4); Norberto Score: 15; Trauma Score: 12 MDM: 14:41 Patient medically screened. jennifer 15:05 Differential diagnosis: Contusion of Hematoma on Laceration of Intracranial bleed- jennifer Concussion cerebral contusion. Data reviewed: vital signs, nurses notes, radiologic studies, CT scan. 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 Test interpretation: by ED physician or midlevel provider: ECG. Counseling: I had a detailed discussion with the patient and/or guardian regarding: the historical points, exam findings, and any diagnostic results supporting the discharge/admit diagnosis, lab results, radiology results, the need for outpatient follow up, for definitive care, a family practitioner. 06/14 12:41 Order name: CT Head C Spine [facility] 06/14 14:59 Order name: Wound Care; Complete Time: 15:15 jennifer 06/14 14:59 Order name: Ice pack; Complete Time: 15:27 jennifer Administered Medications: 15:27 Drug: Neosporin (fjmpcvpn-pxzcyivewe-vnbfrhtfy) Ointment 1 application Route: Topical; ww Site: affected area; 15:27 Drug: KeFLEX (cephalexin) 500 mg Route: PO; ww Disposition Summary: 06/14/21 15:08 Discharge Ordered Location: Home jennifer Problem: new jennifer Symptoms: have improved jennifer Condition: Stable jennifer Diagnosis - Fall on same level, unspecified jennifer - Laceration without foreign body of other part of head - left brow, left cheek , jennifer superfical - Abrasion of left hand jennifer - Abrasion of right hand jennifer Followup: jennifer - With: Private Physician - When: 2 - 3 days - Reason: Recheck today's complaints, Continuance of care, Re-evaluation by your physician Discharge Instructions: - Discharge Summary Sheet jennifer - Abrasion jennifer - Head Injury, Adult jennifer - Nonsutured Laceration Care jennifer - Abrasion, [id number] jennifer - Head Injury, Adult, [id number] jennifer Forms: - Medication Reconciliation Form jennifer - Thank You Letter jennifer - Antibiotic Education jennifer - Prescription Opioid Use jennifer Prescriptions: - Centany 2 % Topical ointment - apply 1 application by TOPICAL route 3 times per day; 30 gram; Refills: 0, jennifer Product Selection Permitted - Cephalexin 500 mg Oral Capsule - take 1 capsule by ORAL route every 6 hours for 7 days; 28 capsule; Refills: 0, jennifer Product Selection Permitted NIH Stroke Scale - NIH Stroke Score Date: 06/14/2021 Time: 14:59 Total Score = 0 1a. Level of Consciousness (LOC) - 0(Alert) 1b. Level of Consciousness (LOC) (Month \T\ Age) - 0(Both) 1c. LOC Commands (Open \T\ Closes Eyes/Building Manager) - 0(Both) 2. Best Gaze (Lateral Gaze Paresis) - 0(Normal) 3. Visual Field Loss - 0(No visual loss) 4. Facial Palsy - 0(Normal) 5a. Left Arm: Motor (10-second hold) - 0(No drift) 5b. Right Arm: Motor (10-second hold) - 0(No drift) 6a. Left Leg: Motor (5-second hold - always test supine) - 0(No drift) 6b. Right Leg: Motor (5-second hold - always test supine) - 0(No drift) 7. Limb Ataxia (finger/nose \T\ heel/ba - test with eyes open) - 0(Absent) 8. Sensory Loss (pinprick arms/legs/face) - 0(Normal) 9. Best Language: Aphasia (description/naming/reading) - 0(No aphasia) 10. Dysarthria (speech clarity - read or repeat words) - 0(Normal) 11. Extinction and Inattention (visual/tactile/auditory/spatial/personal) - 0(No abnormality) Initials: jennifer Signatures: Dispatcher [employer] Jose Buenrostro MD MD cha Garcia, Victoria, RN RN vg1 Gisselle Jackson RN RN ww
[2021-06-14] MEDS ORDERED: CEPHALEXIN 250 MG CAP ONE (15:20)
[2021-06-14] MEDS ORDERED: NEOMYCIN/BAC/POLY OPTH 3.5GM ONE (15:21)
[2021-06-14 15:59] VITALS: BP 161/84; TEMP 97.4; O2SAT 99
== END 2021-06-14 15:49 | disposition home or self-care (01) ==
LOC: ER 10:54
DX: S01.412A Laceration without foreign body of left cheek and temporomandibular area, initial encounter (principal); S60.512A Abrasion of left hand, initial encounter; S60.511A Abrasion of right hand, initial encounter; W18.39XA Other fall on same level, initial encounter; I10 Essential (primary) hypertension
CPT/HCPCS: 70450; 72125; 99284

== ENCOUNTER 2021-06-17 13:45 | Observation (INO) | payer OTHER ==
--- OUTSIDE RECORDS SUMMARY | 2021-06-17 13:49 | XMS REPORT | Clinical Summary ---
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 (Primary Dx) 02/02/2021 Telephone Lymphoma and Myeloma Alison Mcgarry Follow- up 08/05/2020 Orders Only Infectious Diseases Ede Aparicio MD S ARS-CoV-2 vaccination after 06/17/2020 Immunizations Name Administration Dates Next Due Influenza, [...] Smokeless Tobacco: Never Used Comments: quit in 195 Alcohol Use Standard Drinks/Week Comments No 0 (1 standard drink = 0.6 oz pure alcoho l) Sex Assigned at Date Recorded Not on file Obstetrics History Last Filed Vital Signs Not on file Plan of Treatment Health Maintenance Due Date Last Done Comments COVID-19 Vaccination (1) 1947 Results Not on fileafter 06/17/2020 Insurance Payer Benefit Plan / Subscriber ID Effective Dates Phone Addre ss Type Group AETNA MEDICARE AETNA MEDICARE [id number] 2013-Marian CARNEY [id number] [place] [address] Valreio France Personal/Family Self [phone] (Home) [place] [id number] Valerio France Personal/Family Self 1935 [id number] [facility] (Home) [address] [place] [address] Care Teams Transfusion Aide Relationship Specialty Start Date End Date Celine Solis MD PCP - General 07/29/[address] [place] [id number] Remington Abraham MD PCP - External Referring 06/11/14 Remington Abraham MD PCP - External Follow Up A 06/11/14 Aditi Butts, DISTRIBUTION ANALYST Nurse Practitioner 08/05/[address] [place] [id number] Nancy Galaviz, DISTRIBUTION ANALYST Nurse Practitioner 08/05/[address] [place] [id number] Celine Solis MD Physician 08/05/[address] [place] [id number] Gloria Hernandez Hematology 8/7/19 MD Kriss [address] [address]
--- OUTSIDE RECORDS SUMMARY | 2021-06-17 13:50 | XMS REPORT | Continuity of Care Document ---
:1935 Author Organization [facility] t Address [address] [place] [address] [place] [address] Care Team Providers Name Role Phone Alexis [...] Fam Pob I Attending Clinician Unavailable Camille CAISSON WORKER Attending Clinician Alexis MARCIAL Attending Clinician Unavailable Jovita GRANT Attending Clinician Unavailable DREAD ARIZA Admitting Clinician Unavailable Payers Payer Name Policy Type Policy Number Effective Date Expiration Date S astrid AETNA MEDICARE [id number] 2013 PPO 00:00:00 AETNA MEDICARE [id number] 2013 PPO 00:00:00 MEDICARE [id number] 2013 2013 ADVANTAGE GENERIC 00:00:00 00:00:00 Problems Condition Condition Condition Status Onset Resolution Last Treating Co mments Source Name Details Category Date Date Treatment Clinician Date TIA Diagnosis Active 2018-052019-05-10 Mem oria 07-05 22:06:00 l TIA 00:00: [place] 00 Active 05/04/2019 [facility] Drug-induc Drug-induc Disease Active M D [...] UNSP CEREBRAL ISCHEMIC ATTACK, UNSP Active [facility] Diabetes Problem Resolve 2019-05-07 Me moria mellitus d 22:42:21 l (disorder) Diabetes He rmann mellitus (disorder) Resolved Problem 05/07/2019 Alexis Newman, SUZETTE Chery Hypertensi Problem Resolve 2019-05-07 Memoria ve d 22:42:21 l disorder, [place] systemic Hypertensi arterial ve (disorder) disorder, systemic arterial (disorder) Resolved Problem 05/07/2019 Alexis Newman, SUZETTE Vik Transient Problem Resolve 2019-05-07 M emoria ischemic d 22:42:21 l attack Vik (disorder) Transient ischemic attack (disorder) Resolved Problem 05/07/2019 Alexis Newman, SUZETTE Chery Allergies, Adverse Reactions, Alerts Allergy Allergy Status Severity Reaction(s) Onset Inactive Treating Comm ents Source Name Type Date Date Clinician NO KNOWN Drug Active Univers ALLERGIE Class [facility] Family History Family Member Diagnosis Comments Start Date Stop Date Source Natural father -Genitourinary (Bladder, MD Rothman Kidney, Prostate, Testicle) Social History Social Habit Start Date Stop Date Quantity Comments Source History of Cigar Smoker MD Rothman tobacco use Exposure to Yes University SARS-CoV-2 [facility] (event) Branch Alcohol intake 2018-03-23 2018-03-23 Current MD Prisca sanchez 00:00:00 00:00:00 non-drinker of alcohol (finding) Tobacco Comment 2015-09-22 2015-09-22 quit in 1959 MD Irving gupta 00:00:00 00:00:00 Tobacco use and 2015-09-22 2015-09-22 Smokeless tobacco MD Stephan exposure 00:00:00 00:00:00 non-user Social History 2013-10-27 2013-10-27 [facility] erik 07:44:46 07:44:46 Sex Assigned At [birth year] MD Espinosa on 00:00:00 00:00:00 Smoking Status Start Date Stop Date Source Unknown if ever smoked [facility] Ex-smoker 2015-09-22 00:00:00 2015-09-22 00:00:00 MD Arboleda [...] 1,200 mg at 1700, Routine ondansetron Yes [id number] 4mg Take 1 Univers (ZOFRAN 02-04 tablet by ity of ODT) 4 mg 00:00: mouth [place] disintegrat 00 every 8 Medic al ing tablet (eight) Branch hours as needed for Nausea and Vomiting (N/V). ondansetron Yes [id number] 4mg Take 1 Univers (ZOFRAN 9-09 tablet [...] n 2-09 (Same as: l 03:00: Lipitor) [place] 00 atorvastati 2018-05 Yes 20 mg = 1 M emoria n 20 MG 2-08 tab, PO, l Oral Tablet 22:04: Bedtime, # Vik [Lipitor] 00 30 tab, 0 Refill(s), [facility]acy: [id number] Metformin 2018-05 Yes 1,000 mg = Me moria hydrochlori 2-08 1 tab, PO, l de 1000 MG 22:04: BID-Meals, H ermann Oral Tablet 00 # 30 tab, 0 Refill(s), Pharmacy: [id number] canaglifloz 2018-05 Yes 100 mg = 1 Memoria in 100 MG 2-08 tab, PO, l Oral Tablet 22:04: Before Herm filemon [Invokana] 00 Breakfast, # 30 tab, 2 Refill(s), [facility]acy: [id number] pantoprazol 2018-05 No Notes: For Memoria e [...] not crush l Coated 05:16: or chew. [place] Tablet 00 (Same As: Ecotrin) Dextrose 2018-05 No 12.5 gm, Memor ia 50% Syringe 2-08 25 mL, l (D50W) 05:07: Route: [place] 00 IVP, Drug Form: INJ, Dosing Weight 86.477, kg, PRN, PRN Blood Glucose Results, Start date: 05/04/19 23:07:00 UROLOGY NURSE, Duration: 30 day, Stop date: 06/03/19 23:06:00 UROLOGY NURSE, 0 Glucagon 2018-05 No 1 mg, Memoria 2-08 Route: IM, l 05:07: Drug form: Vik 00 PDR/INJ, PRN, Dosing Weight 86.477, kg, PRN Blood Glucose Results, Start date: 05/04/19 23:07:00 UROLOGY NURSE, Duration: 30 day, Stop date: 06/03/19 23:06:00 UROLOGY NURSE, 0 Insulin 2018-05 No Notes: Memoria Lispro [...] not crush l Coated 05:00: or chew. [place] Tablet (Same As: Ecotrin) Acetaminoph 2018-05 No Notes: Do M emoria en -08 not exceed l 04:57: 4 gm/day. Vik (Same as: Tylenol) Saline 2018-05 No Notes: [...] 2-08 PO, 0 l 04:15: Refill(s) Vik potassium Yes TAKE 1 MD chloride 4-22 TABLET BY Ejsús o (K-DUR,KLOR 00:00: MOUTH n -CON M) 10 00 EVERY DAY mEq tablet candesartan 2015- Yes take 1 (YAMILA) 4 2-22 tablet Jesús o mg tablet 00:00: every nigh n 00 Immunizations Ordered Immunization Filled Immunization Date Status Commen ts Source Name Name Influenza, 2018-02-28 Completed MD Rothman Unspecified 00:00:00 pneumococcal 2013-10-28 Completed [facility] 23-valent vaccine 01:27:00 [place] Vital Signs Vital Name Observation Time Observation Value Comments Source Systolic blood 2021-02-04 21:00:00 121 mm[Hg] Univer sity pressure [facility] Diastolic blood 2021-02-04 21:00:00 69 mm[Hg] [facility] Heart rate 2021-02-04 21:00:00 68 /min [facility] Respiratory rate 2021-02-04 21:00:00 20 /min [facility] Oxygen saturation in 2021-02-04 21:00:00 98 /min [facility] Arterial blood by [facility] Pulse oximetry Organ Body temperature 2021-02-04 18:30:00 36.44 Belen [facility] Body weight 2021-02-04 18:30:00 90.719 kg [facility] WEIGHT 2019-12-20 09:44:00 87.9 kg Temperature Oral (F) 2019-05-05 18:10:00 97.2 F [facility] Heart Rate 2019-05-05 18:10:00 [facility] Respitory Rate 2019-05-05 18:10:00 Memori al Vik Systolic (mm Hg) 2019-05-05 18:10:00 Chema rial Vik Diastolic (mm Hg) 2019-05-05 18:10:00 Mem orial Vik Temperature Oral (F) 2019-05-05 14:15:00 97.3 F [facility] Heart Rate 2019-05-05 14:15:00 [facility] [place] Respitory Rate 2019-05-05 14:15:00 Memori al Vik Systolic (mm Hg) 2019-05-05 14:15:00 Chema rial Vik Diastolic (mm Hg) 2019-05-05 14:15:00 Mem orial Vik Temperature Oral (F) 2019-05-05 10:24:00 97.3 F Katherine Chery Heart Rate 2019-05-05 10:24:00 Katherine Chery Respitory Rate 2019-05-05 10:24:00 Kelly pineda [place] Systolic (mm Hg) 2019-05-05 10:24:00 Chema rial [place] Diastolic (mm Hg) 2019-05-05 10:24:00 Mem orial Vik Height 2019-05-05 04:10:00 187.96 cm [facility] Vik Weight 2019-05-05 04:10:00 [facility] Vik BMI Calculated 2019-05-05 04:10:00 Kelly Ochoa Procedures Procedure Date / Time Performed Performing Clinician Sour e URINALYSIS 2021-02-04 19:29:00 Antonia Griffiths [facility] COMP. METABOLIC PANEL 2021-02-04 19:28:00 Antonia Griffiths [facility] ([id number]) [facility] CBC WITH DIFF 2021-02-04 19:28:00 Antonia Griffiths [facility] COVID-19 (ID NOW RAPID 2021-02-04 19:28:00 Antonia Griffiths [facility] TESTING) [facility] NOTICE OF PRIVACY 2021-02-04 18:23:58 Doctor Unassigned, No Univ [facility] PRACTICES Name [facility] CONSENT/REFUSAL FOR 2021-02-04 18:23:46 Doctor Unassigned, No [facility] DIAGNOSIS AND Name Medical Organ TREAT[facility] Plan of Care Planned Activity Planned Date Details Comments Source Future Scheduled Test 1947 00:00:00 COVID-19 Vaccination MD Rothman (1) [code = COVID-19 Vaccination (1)] Encounters Start End Encounter Admission Attending Care Care Encounter Source Date/Time Date/Time Type Type Clinicians Facility Department ID 2021-03-29 Emergency [facility] [id number] Univers 21:33:06 ity [facility] 2020-12-08 Outpatient [facility] [id number] [place] 09:50:[address] [facility] 2020-10-03 Outpatient [facility] [id number] [place] 03:25:33 Manuela CORDOVA 2019-12-16 Outpatient MDA TARYN [id number] 07:06:56 Prisca sanchez 2021-02-04 2021-02-04 Emergency Aye [facility] [id number] Univers 13:39:00 18:19:00 Antonia Reno 350.1.13.10 i ty [address]2.7.2.686 [facility] [id number] [facility] 084 Branch 2021-02-04 2021-02-04 Orders Doctor LINH [id number] Univers 00:00:00 00:00:00 Only Unassigned, FARZANA 350.1.13.10 ity of [place] [address]686 Jose as [phone] [facility] 009 Branch 2020-10-13 2020-10-17 Inpatient E TO, [facility] 750[address] [facility] 17:23:00 10:25:00 ANJASABINA 2020-06-04 2020-06-04 Outpatient BIGG, [facility] CAR 75[address] [facility] 08:45:00 23:59:00 KATELYN 2020-01-25 2020-01-25 Telephone LINH Jennings [id number] 00:00:00 00:00:00 Ashley YANES 350.1.13.10 [place] [id number] [facility] 2020-01-25 2020-01-25 Telephone LINH Jennings [id number] [facility] 00:00:00 00:00:00 Ashley YANES 350.1.13.10 i ty of [facility] 4.2.7.2.686 Jose as [id number] [facility] 019 Branch 2020-01-24 2020-01-24 Outpatient Rosa NUR [facility] [id number] Univers 16:40:00 16:40:00 MARCELA mooney of [facility] 2020-01-24 2020-01-24 Laboratory Lab, Adc Fam Pob I [facility] [id number] Univers 14:45:15 15:30:48 Only Anene, [facility] 350.1.13.10 ity [facility] 4.2.7.2.686 Jose as Professio [phone] Me dical [address] 2020-01-24 2020-01-24 Laboratory Lab, [facility] [id number] 14:45:15 15:30:48 Only Fam Pob I Health 350.1.13.10 [place] 4.2.7.2.686 Professio [id number] nal [facility] Office [address] 2020-01-24 2020-01-24 Outpatient R [facility] [id number] Univers 15:15:00 15:15:00 [id number] ity [facility] 2019-12-20 2019-12-20 Outpatient MAITE MARCIAL MDA MDA [id number] 09:37:45 11:58:12 NAHID sanchez 2019-12-20 2019-12-20 Outpatient MAITE MARCIAL, MDA MDA [id number] 10:47:51 10:47:51 NAHID sanchez 2019-12-20 2019-12-20 Outpatient MAITE MARCIAL, MDA MDA [id number] 00:00:00 00:00:00 NAHID sanchez 2019-12-18 2019-12-18 Outpatient MAITE GRANT MDA MDA [id number] 09:29:08 23:59:00 TONIA sanchez 2019-12-16 2019-12-16 Outpatient MAITE GRANT MDA MDA [id number] 06:25:15 06:25:15 TONIA sanchez 2019-05-05 2019-05-05 Observatio nullFlavo [facility] [id number] Memoria 04:57:00 22:54:00 laura Chery 41 l [facility] 2019-05-04 2019-05-04 Outpatient U [facility]BL MED [id number] [facility] 22:57:00 22:57:00 2013-12-06 2013-12-07 Outpatient nullFlavo [facility] [id number] Memoria 18:00:00 04:59:00 rosa Chery 00 l JENISE [place] 2013-12-06 2013-12-07 Outpt Diag nullFlavo [facility] [id number] Memoria 15:19:00 04:59:00 Services r Outpatient 00 l Imaging Vikfilemon Fayeann Results Test Description Test Time Test Comments Results Result Comments Source COMP. METABOLIC PANEL (12705) 2021-02-04 20:24:39 Test Item Value Reference Range Interpretation Comme nts NA (test code = 8770626543) 136 mmol/L 135-145 K (test code = 6235185489) 4.2 mmol/L 3.5-5.0 CL (test code = 4481958529) 102 mmol/L 98-108 CO2 TOTAL (test code = 1109095411) 21 mmol/L 23-31 L AGAP (test code = 7173293142) 2-16 BUN (test code = 2397680447) 27 mg/dL 7-23 H GLUCOSE (test code = 9883250893) 133 mg/dL 70-110 H CREATININE (test code = 1.27 mg/dL 0.60-1.25 H 3618809007) TOTAL BILI (test code = 1.6 mg/dL 0.1-1.1 H 2771576356) CALCIUM (test code = 6533671991) 9.1 mg/dL 8.6-10.6 T PROTEIN (test code = 2398261645) 6.9 g/dL 6.3-8.2 ALBUMIN (test code = 2975903959) 3.7 g/dL 3.5-5.0 ALK PHOS (test code = 6912166908) 78 U/L 34-122 ALTv (test code = 1742-6) 34 U/L 5-50 AST(SGOT) (test code = 0113022417) 43 U/L 13-40 H eGFR (test code = 4274086254) mL/min/1.73m2 DANIEL (test code = DANIEL) Association [...] tests). Lab Interpretation (test code = Abnormal 16117-2) [facility]. METABOLIC PANEL (33613)2021-02-04 20:24:39 Test Item Value Reference Range Interpretation Comments NA (test code = 136 mmol/L 135-145 3942214352) K (test code = 4.2 mmol/L 3.5-5.0 3221763037) CL (test code = 102 mmol/L 98-108 6336967260) CO2 TOTAL (test code = 21 mmol/L 23-31 L 1842454252) AGAP (test code = 2-16 4855891954) BUN (test code = 27 mg/dL 7-23 H 2124747078) GLUCOSE (test code = 133 mg/dL 70-110 H 4107808559) CREATININE (test code = 1.27 mg/dL 0.60-1.25 H 1259595331) TOTAL BILI (test code = 1.6 mg/dL 0.1-1.1 H 5068881489) CALCIUM (test code = 9.1 mg/dL 8.6-10.6 5075145818) T PROTEIN (test code = 6.9 g/dL 6.3-8.2 5330475667) ALBUMIN (test code = 3.7 g/dL 3.5-5.0 0342590219) ALK PHOS (test code = 78 U/L 34-122 7493574973) ALTv (test code = 34 U/L 5-50 1742-6) AST(SGOT) (test code = 43 U/L 13-40 H 4949943342) eGFR (test code = mL/min/1.73m2 3856281007) DANIEL (test code = DANIEL) Association of [...] tests). Lab Interpretation Abnormal (test code = 86800-1) [facility] TmyeayIYPZGIMOEZ9703-35-75 19:52:11 Test Item Value Reference Range Interpretation Comments APPEARANCE (test code = Clear Clear 9637349608) COLOR (test code = Yellow Yellow 1997528835) PH (test code = 4.8-8.0 8611212253) SP GRAVITY (test code = 1.003-1.030 8701246279) GLU U QUAL (test code = Normal Normal 8604427161) BLOOD (test code = Negative Negative 9456658050) KETONES (test code = Negative Negative 8594893186) PROTEIN (test code = Negative Negative 2887-8) UROBILIN (test code = Normal Normal 0507023185) BILIRUBIN (test code = Negative Negative 5235146887) NITRITE (test code = Negative Negative 0771628202) LEUK DANELLE (test code = Negative Negative 3141854353) RBC/HPF (test code = See_Comment [Autom ated message] 3317652443) The system Groupiter generated this result transmitted ref erence range: 0 - 3 HP F. The reference range was not used to int erpret this result as normal/abnormal . WBC/HPF (test code = See_Comment [Autom ated message] 2987270192) The system Groupiter generated this result transmitted ref erence range: 0 - 5 HP F. The reference range was not used to int erpret this result as normal/abnormal . BACTERIA (test code = Negative Negative 7100303507) MUCOUS (test code = Slight Negative LPF A 4962487375) HYAL CAST (test code = See_Comment H [Aut omated message] 9705983588) The system Groupiter generated this result transmitted ref erence range: <=2 LPF. The reference range was not used to int erpret this result as normal/abnormal . Lab Interpretation (test Abnormal code = 81337-0) [place] [facility]11 Test Item Value Reference Range Interpretation Comments APPEARANCE (test code = Clear Clear 3873369762) COLOR (test code = Yellow Yellow 4449386625) PH (test code = 4.8-8.0 6829467985) SP GRAVITY (test code = 1.003-1.030 6825261246) GLU U QUAL (test code = Normal Normal 5651415618) BLOOD (test code = Negative Negative 9001661315) KETONES (test code = Negative Negative 8055131337) PROTEIN (test code = Negative Negative 2887-8) UROBILIN (test code = Normal Normal 5528201870) BILIRUBIN (test code = Negative Negative 2885571303) NITRITE (test code = Negative Negative 4193551570) LEUK DANELLE (test code = Negative Negative 2656488614) RBC/HPF (test code = See_Comment [Autom ated message] 5514069370) The system Groupiter generated this result transmitted ref erence range: 0 - 3 HP F. The reference range was not used to int erpret this result as normal/abnormal . WBC/HPF (test code = See_Comment [Autom ated message] 0918808518) The system Groupiter generated this result transmitted ref erence range: 0 - 5 HP F. The reference range was not used to int erpret this result as normal/abnormal . BACTERIA (test code = Negative Negative 2803218764) MUCOUS (test code = Slight Negative LPF A 6616872415) HYAL CAST (test code = See_Comment H [Aut omated message] 3015633543) The system Groupiter generated this result transmitted ref erence range: <=2 LPF. The reference range was not used to int erpret this result as normal/abnormal . Lab Interpretation (test Abnormal code = 72106-4) [facility]-19 (ID NOW RAPID TESTING)2021-02-04 19:49:28 Test Item Value Reference Range Interpretation Comments SARS-CoV-2 Rapid ID NOW Positive Not Detected A (test code = 21507-8) DANIEL (test code = DANIEL) ID NOW COVID-19 Assay is an isothermal nucleic acid amplification test intended for the qualitative detection of nucleic acid from SARS-CoV-2 viral RNA in nasopharyngeal (ADMINISTRATIVE SERVICES SPECIALIST) specimens. It is used under Emergency Use [...] indicated. Lab Interpretation Abnormal (test code = 59441-5) [facility]-19 (ID NOW RAPID TESTING)2021-02-04 19:49:28 Test Item Value Reference Range Interpretation Comments SARS-CoV-2 Rapid ID NOW Positive Not Detected A (test code = 01966-4) DANIEL (test code = DANIEL) ID NOW COVID-19 Assay is an isothermal nucleic acid amplification test intended for the qualitative detection of nucleic acid from SARS-CoV-2 viral RNA in nasopharyngeal (ADMINISTRATIVE SERVICES SPECIALIST) specimens. It is used under Emergency Use [...] indicated. Lab Interpretation Abnormal (test code = 39915-2) General acute hospital WITH [id number] 19:40:04 Test Item Value Reference Range Interpretation Comments WBC (test code = See_Comment [Automated 4520-2) message] The sy stem which generated this result transmitted reference range : 4.20 - 10.70 10*3/?L. The reference range was not used to interpret this result as normal/abnormal . RBC (test code = See_Comment [Automated 563-8) message] The sy stem which generated this [...] RDW-SD (test code = 45.6 fL 38.5-51.6 96869-9) RDW-CV (test code = 14.1 % 12.1-15.4 788-0) PLT (test code = See_Comment [Automated 904-3) message] The sy stem which generated this result transmitted reference range : 150 - 328 10*3/ ?L. The reference r shayna was not used to interpret this result as normal/abnormal . MPV (test code = 10.8 fL 9.8-13.0 27611-0) NRBC/100 WBC (test See_Comment [Automat ed code = 9211361665) message] The system which generated this result transmitted reference range : 0.0 - 10.0 /100 WBCs. The refer ence range was not u sed to interpret th is result as normal/abnormal . NRBC x10^3 (test code <0.01 See_Comment [Auto mated = 7285681906) message] The s ystem which generated this result transmitted reference range : 10*3/?L. The reference range was not used to interpret this result as normal/abnormal . GRAN MAT (NEUT) % 73.3 % (test code = 770-8) IMM GRAN % (test code 0.60 % = 5616738376) LYMPH % (test code = 10.4 % 736-9) MONO % (test code = 15.2 % 5905-5) EOS % (test code = 0.1 % 713-8) BASO % (test code = 0.4 % 706-2) GRAN MAT x10^3(ANC) 6.04 10*3/uL 1.99-6.95 (test code = 6642004077) IMM GRAN x10^3 (test 0.05 10*3/uL 0.00-0.06 code = 1299811883) LYMPH x10^3 (test code 0.86 10*3/uL 1.09-3.23 L = 731-0) MONO x10^3 (test code 1.25 10*3/uL 0.36-1.02 H = 742-7) EOS x10^3 (test code = <0.03 0.06-0.53 L 711-2) BASO x10^3 (test code 0.03 10*3/uL 0.01-0.09 = 704-7) Lab Interpretation Abnormal (test code = 31362-2) General acute hospital WITH [id number] 19:40:04 Test Item Value Reference Range Interpretation [...] RDW-SD (test code = 45.6 fL 38.5-51.6 33152-3) RDW-CV (test code = 14.1 % 12.1-15.4 788-0) PLT (test code = See_Comment [Automated 777-3) message] The sy stem which generated this result transmitted reference range : 150 - 328 10*3/ ?L. The reference r shayna was not used to interpret this result as normal/abnormal . MPV (test code = 10.8 fL 9.8-13.0 97673-1) NRBC/100 WBC (test See_Comment [Automat ed code = 3977718736) message] The system which generated this result transmitted reference range : 0.0 - 10.0 /100 WBCs. The refer ence range was not u sed to interpret th is result as normal/abnormal . NRBC x10^3 (test code <0.01 See_Comment [Auto mated = 9543541685) message] The s ystem which generated this result transmitted reference range : 10*3/?L. The reference range was not used to interpret this result as normal/abnormal . GRAN MAT (NEUT) % 73.3 % (test code = 770-8) IMM GRAN % (test code 0.60 % = 9451300430) LYMPH % (test code = 10.4 % 736-9) MONO % (test code = 15.2 % 5905-5) EOS % (test code = 0.1 % 713-8) BASO % (test code = 0.4 % 706-2) GRAN MAT x10^3(ANC) 6.04 10*3/uL 1.99-6.95 (test code = 7698824994) IMM GRAN x10^3 (test 0.05 10*3/uL 0.00-0.06 code = 4159802129) LYMPH x10^3 (test code 0.86 10*3/uL 1.09-3.23 L = 731-0) MONO x10^3 (test code 1.25 10*3/uL 0.36-1.02 H = 742-7) EOS x10^3 (test code = <0.03 0.06-0.53 L 711-2) BASO x10^3 (test code 0.03 10*3/uL 0.01-0.09 = 704-7) Lab Interpretation Abnormal (test code = 29456-8) [facility] [id number] 14:46:00<0.02 [facility]ann[facility]ARD[facility] DHZIDFA3709-50-09 08:56:00<0.02[facility] HermannCHEM GWMFI7899-77-30 08:56:59384Zkqttjdd HermannCHEM LRBHQ5160-06-19 08:56:0015 [facility]annCHEM OPFSA0560-83-70 08:56:000.88[facility] HermannCHEM PANEL 2019-05-05 08:56:05293Oqimfqgo HermannCHEM BOIQI4249-57-33 08:56:003.7[facility] HermannCHEM PVDRS5023-45-85 08:56:11056Odxwnzdw HermannCHEM MHZRB0591-58-40 08:56:0024[facility] HermannCHEM YJDCZ8563-67-22 08:56:008.4[facility] HermannCHEM BVUTA2963-08-23 08:56:0079[facility] HermannCHEM APTEL8107-39-56 08:56:0010.7 Memorial GjdlzttETZTKIOAFU6172-32-52 08:56:007.6[facility] HermannHEMATOLOGY 2019-05-05 08:56:004.56Memorial JqlbtrmGWCSYWTJSA1505-55-01 08:56:0013.8[facility]orial MjxnjcrQPCOQAVFAX0188-94-55 08:56:0041.0[facility]orial KrwfpbnAGEUACQMGB7128-83-03 08:56:0089.9[facility]orial PihngabJBQQUBIEWJ2279-76-80 08:56:00 Test Item Value Reference Range Interpretation Comments MCH (test code = MCH) 30.3 pg 27.0-31.0 Memorial FepbbliUONOGIULPC9672-46-40 08:56:0033.7[facility] HermannHEMATOLOGY 2019-05-05 08:56:0014.5[facility] WesqxrhVSWRASRFED2769-51-20 08:56:09667Lqesoems NkilxikBVBGKMBJPT8831-22-21 08:56:008.6[facility]orial XtjdjkqJHBGKSKVGX1999-44-58 08:56:0067.4[facility]orial TbfvxtpPAAEDDTKAN7765-03-13 08:56:0019.8[facility] [place] NNWNLXXFZE5133-44-03 08:56:009.8[facility]orial TrqnslpPXPLXNRKQY7099-33-53 08:56:002.0 Memorial ObycjznLNQMSAERNQ6336-51-60 08:56:001.0[facility] HermannHEMATOLOGY 2019-05-05 08:56:005.1[facility] UhidtsvKYYHOABQRN9665-76-31 08:56:001.5[facility]orial IcvvrkuXVNZSFGQMB4969-05-94 08:56:000.7[facility] BrrdmlcJIZISHJZNS8423-12-63 08:56:000.2[facility] SxjwargWDVDEIUQHT1922-17-07 08:56:000.1[facility] [place] FSMTLB2637-71-15 08:56:00 Test Item Value Reference Range Interpretation Comments CHD Risk (test code = CHD Risk) 4.74 1 4.00-7.30 Memorial KzndcreULYTOL7722-41-06 08:56:21875Vehscmct OdnkiadKOVGYI9382-46-76 08:56:74335Opmhsyps KoscypoSNKNSD0296-96-05 08:56:0034[facility] HermannLIPIDS 2019-05-05 08:56:14157Pdysiosn FbaapjaHDJHQX5707-59-61 08:56:00 Test Item Value Reference Range Interpretation Comments VLDL (test code = VLDL) 22 1 [facility] HermannSPECIAL KYBKGNWOL3943-68-53 08:56:008.9[facility] Vik GLRIBGORFA3932-78-48 08:31:000.9[facility]orial ClbbqvaAASZXJKFES7393-27-46 08:31:005.4 Memorial IaoqushZOMTCAEKQD7616-78-94 08:31:001.6[facility] HermannHEMATOLOGY 2019-05-05 08:31:000.7[facility] GmedhwbSOVVEPCACN2782-53-76 08:31:000.2[facility] DyoytwvOYQMRSSLMK8203-76-38 08:31:000.1[facility] SrcmhilYAERTVTTAW5083-32-12 08:31:008.0[facility] QbastylNXQNVRWKBI2782-85-99 08:31:004.65[facility] [place] [facility] IZPEHWZBCO9488-95-72 08:31:0014.0[facility] OxsiogfEUUAGDCIJL5514-72-96 08:31:00 41.8[facility] VjvuqxwPFCONZOQZR1851-99-68 08:31:0089.8[facility]annHEMATOLOGY 2019-05-05 08:31:00 Test Item Value Reference Range Interpretation Comments MCH (test code = MCH) 30.1 pg 27.0-31.0 [facility] [id number] 08:31:0033.5[facility]annHEMATOLOGY 2019-05-05 08:31:0014.5[facility] DyeotdyJWVLYLNFYD4383-14-30 08:31:76634Hmllhcjx BiqfxuhPSKNOQAIZF4170-75-22 08:31:008.2[facility] DiuesawAATRVHDGLO9757-84-63 08:31:00 Test Item Value Reference Range Interpretation Comments PTT (test code = PTT) 31.5 s 22.9-35.8 [facility] [id number] 08:31:00 Test Item Value Reference Range Interpretation Comments INR (test code = INR) 1.15 1 0.85-1.17 [facility] [id number] 08:31:00 Test Item Value Reference Range Interpretation Comments PT (test code = PT) 14.5 s 12.0-14.7 [facility] DltxdioIUDEZIOAYJ1642-55-90 08:31:00Non-Reactive *NA*(05/05/19 2:31 AM) [facility] [id number] 08:31:00Clear (05/05/19 2:31 AM) [facility] [id number] 08:31:00 Test Item Value Reference Range Interpretation Comments UA Spec Grav (test code = UA Spec 1.006 1 Grav) [facility] [id number] 08:31:00 Test Item Value Reference Range Interpretation Comments UA pH (test code = UA pH) 7.0 1 5.0-8.0 [facility] [id number] 08:31:00Negative *NA*(05/05/19 2:31 AM) [facility] [id number] 08:31:00Negative (05/05/19 2:31 AM) [facility] [id number] 08:31:00Negative (05/05/19 2:31 AM) [facility] [id number] 08:31:00Negative (05/05/19 2:31 AM) [facility] [id number] 08:31:61629Wddohucq HermannCARDIAC AIMWFLZ6318-64-07 08:31:00<0.02[facility]annCHEM [id number] 08:31:00 267[facility]annCHEM [id number] 08:31:0015[facility] HermannCHEM PANEL 2019-05-05 08:31:000.99[facility]annCHEM [id number] 08:31:40964Sqwzfiok HermannCHEM [id number] 08:31:004.1[facility]annCHEM [id number] 08:31:58206Wanasgzc HermannCHEM [id number] 08:31:0027[facility]annCHEM YAWTA4025-13-24 08:31:008.9[facility]annCHEM [id number] 08:31:006.1 [facility]annCHEM [id number] 08:31:003.4[facility]annCHEM PANEL 2019-05-05 08:31:0016[facility] HermannCHEM [id number] 08:31:0010[facility] HermannCHEM [id number] 08:31:0053[facility]annCHEM [id number] 08:31:000.7[facility]annCHEM [id number] 08:31:0070[facility]annCHEM [id number] 08:31:0010.1[facility]annCHEM [id number] 08:31:00 Test Item Value Reference Range Interpretation Comments B/C Ratio (test code = B/C Ratio) 15 1 6-25 [facility]annCHEM [id number] 08:31:002.7[facility]annCHEM PANEL 2019-05-05 08:31:00 Test Item Value Reference Range Interpretation Comments A/G Ratio (test code = A/G Ratio) 1.3 1 0.7-1.6 [facility] [id number] 08:31:0067.3[facility]annHEMATOLOGY 2019-05-05 08:31:0020.3[facility] AibxwogSHIFVXZKKC5483-62-80 08:31:009.1[facility] QiupadtPDSLOAIUJE2074-03-99 08:31:002.4[facility] Vik
[2021-06-17] MEDS ORDERED: NA CHLORIDE 0.9% 1,000 ML ONE (13:57)
[2021-06-17 14:15] LABS: Absolute Lymphocytes (CBC) 1.4 K/uL (0.7-4.9); Hematocrit 42.2 % (39.6-49.0); Lymphocytes % 14.2 % (15.3-44.8); RBC Red Blood Cell Count 4.69 M/uL (4.33-5.43)
[2021-06-17 14:16] LABS: Protime INR 1.1
[2021-06-17 14:27] LABS: Albumin 2.8 g/dL (3.4-5.0); Bilirubin Direct 0.2 mg/dL (0-0.2); Bilirubin Total 0.9 mg/dL (0.2-1.0); Magnesium 2.1 mg/dL (1.8-2.4); Potassium 3.9 mmol/L (3.5-5.1); Protein, Total 7.3 g/dL (6.4-8.2)
--- NOTE | 2021-06-17 14:38 | RAD REPORT ---
EXAM DESCRIPTION: CT - CTHCSPWOC - 06/17/2021 2:04 pm CLINICAL HISTORY: Trauma, head and neck injury. PAIN COMPARISON: Head C Spine Mpr Wo Con dated 06/14/2021 TECHNIQUE: Axial 5 mm thick images of the head were obtained. Axial 2 mm thick images of the cervical spine were obtained with sagittal and coronal reconstruction images generated and reviewed. All CT scans are performed using dose optimization technique as appropriate and may include automated exposure control or mA/KV adjustment according to patient size. FINDINGS: CT HEAD WITHOUT CONTRAST: No acute hemorrhage, hydrocephalus or extra-axial collection is identified.No areas of brain edema or midline shift. Moderate chronic small vessel ischemic changes. Mucous retention cyst in left maxillary sinus.The calvarium is intact. CT CERVICAL SPINE WITHOUT CONTRAST: No fracture or acute subluxation.No prevertebral soft tissues swelling is identified. Pronounced pann us formation at the C1-C2 level but no central spinal stenosis. Multilevel cervical spondylosis with varying degrees of neural foraminal narrowing which is most notable at the C5-6 and C6-7 levels. Trac e anterolisthesis of C3 on C4 is noted. This is likely related to underlying degenerative changes rat her than trauma. Carotid artery calcifications. IMPRESSION: No acute intracranial or cervical spine findings.
--- NOTE | 2021-06-17 14:45 | RAD REPORT ---
EXAM DESCRIPTION: RAD - Chest Single View - 06/17/2021 2:24 pm CLINICAL HISTORY: COUGH Chest pain. COMPARISON: Chest Single View dated 10/13/2020; Chest Single View dated 05/04/2019; Chest Single View dated 05/19/2016; Chest Single View dated 05/15/2016; Head C Spine Mpr Wo Con dated 06/17/2021 FINDINGS: Portable technique limits examination quality. The lungs are grossly clear. The heart is normal in size. No displaced fractures. IMPRESSION: No acute intrathoracic process suspected.
[2021-06-17] MEDS ORDERED: ASPIRIN 81 MG CHEWABLE TABLET ONE (15:30)
[2021-06-17] MEDS ORDERED: FOLIC ACID 5 MG/ML VIAL ONE (15:33)
--- NOTE | 2021-06-17 15:37 | EDPHYS ---
Physician Documentation [facility] Name: Valerio France Age: 86 yrs Sex: Male : 1935 Arrival Date: 06/17/2021 Time: 13:46 Bed 24 Private MD: ED Physician Jose Rothman HPI: 06/17 15:24 This 86 yrs old Male presents to ER via EMS with complaints of Fall Injury. jennifer 15:24 Details of fall: The patient fell from an upright position, while walking. Onset: The jennifer symptoms/episode began/occurred today. Associated injuries: The patient sustained injury to the head. Severity of symptoms: At their worst the symptoms were mild. The patient has experienced similar episodes in the past, several times. Historical: - Allergies: 13:53 No Known Allergies; jd3 - Home Meds: 13:53 amlodipine-benazepril 10-40 mg Oral cap 1 cap once daily [Active]; candesartan 4 mg jd3 Oral tab 1 tab once daily [Active]; clopidogrel 75 mg Oral tab 1 tab once daily [Active]; fluoxetine 10 mg Oral tab 1 tabs once daily [Active]; levothyroxine 75 mcg tab 1 tab once daily [Active]; Januvia 100 mg Oral tab 0.5 tab twice a day [Active]; metformin 500 mg Oral tab 1 tab 2 times per day [Active]; meclizine 25 mg Oral tab 1 tab once daily [Active]; oxybutynin chloride 5 mg Oral tr24 1 tab once daily [Active]; lisinopril 40 mg Oral tab 1 tab once daily [Active]; potassium chloride 10 mEq Oral TbTQ 1 tab once daily [Active]; - PMHx: 13:53 Diabetes - NIDDM; multiple myleoma; Hypertension; TIA; jd3 - Immunization history:: Adult Immunizations up to date, Client reports receiving the 2nd dose of the Covid vaccine. - Social history:: Smoking status: Patient/guardian denies using tobacco, but has a distant history of tobacco abuse. - Immunization history: Last tetanus immunization: unknown. ROS: 15:25 Constitutional: Negative for fever, chills, and weight loss, Eyes: Negative for injury, jennifer pain, redness, and discharge, ENT: Negative for injury, pain, and discharge, Neck: Negative for injury, pain, and swelling, Cardiovascular: Negative for chest pain, palpitations, and edema, Respiratory: Negative for shortness of breath, cough, wheezing, and pleuritic chest pain, Abdomen/GI: Negative for abdominal pain, nausea, vomiting, diarrhea, and constipation, Back: Negative for injury and pain, : Negative for injury, bleeding, discharge, and swelling, MS/Extremity: Negative for injury and deformity, Skin: Negative for injury, rash, and discoloration, Psych: Negative for depression, anxiety, suicide ideation, homicidal ideation, and hallucinations, Allergy/Immunology: Negative for hives, rash, and allergies, Endocrine: Negative for neck swelling, polydipsia, polyuria, polyphagia, and marked weight changes, Hematologic/Lymphatic: Negative for swollen nodes, abnormal bleeding, and unusual bruising. 15:25 Neuro: Positive for dizziness, weakness. Exam: 15:25 Constitutional: This is a well developed, well nourished patient who is awake, alert, jennifer and in no acute distress. Head/Face: Normocephalic, atraumatic. Eyes: Pupils equal round and reactive to light, extra-ocular motions intact. Lids and lashes normal. Conjunctiva and sclera are non-icteric and not injected. Cornea within normal limits. Periorbital areas with no swelling, redness, or edema. ENT: Nares patent. No nasal discharge, no septal abnormalities noted. Tympanic membranes are normal and external auditory canals are clear. Oropharynx with no redness, swelling, or masses, exudates, or evidence of obstruction, uvula midline. Mucous membranes moist. Neck: Trachea midline, no thyromegaly or masses palpated, and no cervical lymphadenopathy. Supple, full range of motion without nuchal rigidity, or vertebral point tenderness. No Meningismus. Chest/axilla: Normal chest wall appearance and motion. Nontender with no deformity. No lesions are appreciated. Cardiovascular: Regular rate and rhythm with a normal S1 and S2. No gallops, murmurs, or rubs. Normal PMI, no JVD. No pulse deficits. Respiratory: Lungs have equal breath sounds bilaterally, clear to auscultation and percussion. No rales, rhonchi or wheezes noted. No increased work of breathing, no retractions or nasal flaring. Abdomen/GI: Soft, non-tender, with normal bowel sounds. No distension or tympany. No guarding or rebound. No evidence of tenderness throughout. Back: No spinal tenderness. No costovertebral tenderness. Full range of motion. Male : Normal genitalia with no discharge or lesions. Skin: Warm, dry with normal turgor. Normal color with no rashes, no lesions, and no evidence of cellulitis. MS/ Extremity: Pulses equal, no cyanosis. Neurovascular intact. Full, normal range of motion. Neuro: Awake and alert, GCS 15, oriented to person, place, time, and situation. Cranial nerves II-XII grossly intact. Motor strength 5/5 in all extremities. Sensory grossly intact. Cerebellar exam normal. Normal gait. Psych: Awake, alert, with orientation to person, place and time. Behavior, mood, and affect are within normal limits. 15:37 ECG was reviewed by the Attending Physician. jennifer Vital Signs: 13:54 BP 173 / 100; Pulse 89; Resp 18 S; Temp 97.6(O); Pulse Ox 99% on R/A; Weight 81.65 kg jd3 (R); Height 6 ft. 0 in. (182.88 cm) (R); Pain 0/10; 14:28 BP 164 / 95; Pulse 74; Resp 17 S; Pulse Ox 100% on R/A; jd3 17:17 Pulse 64; Resp 19 S; Pulse Ox 100% on R/A; jd3 13:54 Body Mass Index 24.41 (81.65 kg, 182.88 cm) jd3 Norberto Coma Score: 14:05 Eye Response: spontaneous(4). Verbal Response: oriented(5). Motor Response: obeys jd3 commands(6). Total: 15. 14:28 Eye Response: spontaneous(4). Verbal Response: oriented(5). Motor Response: obeys jd3 commands(6). Total: 15. Trauma Score (Adult): 14:05 Eye Response: spontaneous(1); Verbal Response: oriented(1); Motor Response: obeys jd3 commands(2); Systolic BP: > 89 mm Hg(4); Respiratory Rate: 10 to 29 per min(4); [place] Score: 15; Trauma Score: 12 14:28 Eye Response: spontaneous(1); Verbal Response: oriented(1); Motor Response: obeys jd3 commands(2); Systolic BP: > 89 mm Hg(4); Respiratory Rate: 10 to 29 per min(4); Norberto Score: 15; Trauma Score: 12 MDM: 13:58 Patient medically screened. [facility] 15:30 Differential diagnosis: closed head injury, contusion, multiple trauma, sprain, strain, jennifer electrolyte abnormality, hypoglycemia, intracranial bleed, UTI, volume depletion. Data reviewed: vital signs, nurses notes, lab test result(s), EKG, radiologic studies, CT scan, plain films. Data interpreted: Pulse oximetry: on room air is 100 %. Test interpretation: by ED physician or midlevel provider: ECG, plain radiologic studies. Counseling: I had a detailed discussion with the patient and/or guardian regarding: the historical points, exam findings, and any diagnostic results supporting the discharge/admit diagnosis, lab results, radiology results, the need for further work-up and treatment in the hospital. 06/17 13:50 Order name: Basic Metabolic Panel; Complete Time: 15:13 [facility] 06/17 13:50 Order name: CBC with Diff; Complete Time: 15:13 [facility] 06/17 13:50 Order name: LFT's; Complete Time: 15:13 [facility] 06/17 13:50 Order name: Magnesium; Complete Time: 15:13 [facility] 06/17 13:50 Order name: NT PRO-BNP; Complete Time: 15:13 [facility] 06/17 13:50 Order name: PT-INR; Complete Time: 15:13 [facility] 06/17 13:50 Order name: Troponin HS; Complete Time: 15:13 [facility] 06/17 13:50 Order name: XRAY Chest (1 view); Complete Time: 15:13 [facility] 06/17 13:50 Order name: Lipase; Complete Time: 15:13 [facility] 06/17 13:50 Order name: CT Head C Spine; Complete Time: 15:13 [facility] 06/17 13:50 Order name: SARS-COV-2 RT PCR (Document "Date of Onset" if Symptomatic); Complete Time: [facility] 15:13 06/17 16:01 Order name: Urine Dipstick-Ancillary EDMS 06/17 13:50 Order name: EKG; Complete Time: 13:51 [facility] 06/17 13:50 Order name: Cardiac monitoring; Complete Time: 14:00 [facility] 06/17 13:50 Order name: EKG - Nurse/Tech; Complete Time: 14:31 [facility] 06/17 13:50 Order name: IV Saline Lock; Complete Time: 13:55 [facility] 06/17 13:50 Order name: Labs collected and sent; Complete Time: : [facility] 06/17 13:50 Order name: O2 Per Protocol; Complete Time: 13:55 [facility] 06/17 13:50 Order name: O2 Sat Monitoring; Complete Time: 13:55 [facility] 06/17 16:30 Order name: CONS Physician Consult EDMS EC:37 Rate is 73 beats/min. Rhythm is regular. QRS [place] is Normal. ID interval is normal. QRS jennifer interval is normal. QT interval is normal. No Q waves. T waves are Normal. No ST changes noted. Clinical impression: NSR w/ Non-specific ST/T Changes, 1st degree heart block, and No evidence of ischemia. Interpreted by me. Reviewed by me. Administered Medications: 14:20 Drug: NS 0.9% 1000 ml Route: IV; Rate: 125 ml/hr; Site: left forearm; jd3 17:19 Follow up: Response: No adverse reaction; IV Status: Infusion continued upon admission jd3 15:31 Drug: Aspirin Chewable Tablet 81 mg Route: PO; jd3 16:30 Follow up: Response: No adverse reaction jd3 15:37 Drug: foLIC Acid 1 mg Route: IVPB; Site: left forearm; jd3 16:30 Follow up: Response: No adverse reaction; IV Status: Completed infusion jd3 Disposition Summary: 06/17/21 15:36 Hospitalization Ordered Hospitalization Status: Observation jennifer Provider: Tien Kang cha Location: Telemetry/MedSurg (observation) jennifer Condition: Stable jennifer Problem: new jennifer Symptoms: have improved jennifer Bed/Room Type: Standard jennifer Room Assignment: 210(06/17/21 17:04) ja1 Diagnosis - Repeated falls jennifer - Dementia in other diseases classified elsewhere without behavioral disturbance jennifer - Altered mental status, unspecified jennifer Forms: - Medication Reconciliation Form jennifer - SBAR form jennifer Signatures: Dispatcher [employer] EDJose Thompson MD MD cha Davies, Jonathon RN RN jd3 Shai Silva RN RN ja1 Corrections: (The following items were deleted from the chart) 17:04 15:36 jennifer vahid
--- NOTE | 2021-06-17 15:37 | ER ---
Nurse's Notes [facility] Name: Valerio France Age: 86 yrs Sex: Male : 1935 Arrival Date: 06/17/2021 Time: 13:46 Bed 24 Private MD: Diagnosis: Repeated falls;Dementia in other diseases classified elsewhere without behavioral disturbance;Altered mental status, unspecified Presentation: 06/17 13:52 Chief complaint: EMS states: "Pt was recently seen here for multiple falls and was just jd3 not feeling himself today including multiple more falls. he is on blood thinners, but denies hitting his head or LOC.". Coronavirus screen: At this time, the client does not indicate any symptoms associated with coronavirus-19. Ebola Screen: Patient negative for fever greater than or equal to 101.5 degrees Fahrenheit, and additional compatible Ebola Virus Disease symptoms. Initial Sepsis Screen: Does the patient meet any 2 criteria? No. Patient's initial sepsis screen is negative. Does the patient have a suspected source of infection? No. Patient's initial sepsis screen is negative. Risk Assessment: Do you want to hurt yourself or someone else? Patient reports no desire to harm self or others. Onset of symptoms was June 17, 2021. 13:52 Method Of Arrival: EMS: [facility] j 13:52 Acuity: VICTORINO 3 jd3 14:04 Care prior to arrival: IV initiated. 20 GA, in the left forearm. Mechanism of Injury: jd3 Fall from standing position. Trauma event details: Injury occurred in the [facility], Injury occurred: at home. Injury occurred: June 16, 2021. Trauma Activation: Alert Physician: ED Physician; Name: melissa; Notified At: 13:50; Arrived At: 13:50 Physician: General Surgeon; Name: ; Notified At: 13:50; Arrived At: Physician: Radiology; Name: ; Notified At: 13:50; Arrived At: Physician: Respiratory; Name: ; Notified At: 13:50; Arrived At: Physician: Lab; Name: ; Notified At: 13:50; Arrived At: Historical: - Allergies: 13:53 No Known Allergies; jd3 - Home Meds: 13:53 amlodipine-benazepril 10-40 mg Oral cap 1 cap once daily [Active]; candesartan 4 mg jd3 Oral tab 1 tab once daily [Active]; clopidogrel 75 mg Oral tab 1 tab once daily [Active]; fluoxetine 10 mg Oral tab 1 tabs once daily [Active]; levothyroxine 75 mcg tab 1 tab once daily [Active]; Januvia 100 mg Oral tab 0.5 tab twice a day [Active]; metformin 500 mg Oral tab 1 tab 2 times per day [Active]; meclizine 25 mg Oral tab 1 tab once daily [Active]; oxybutynin chloride 5 mg Oral tr24 1 tab once daily [Active]; lisinopril 40 mg Oral tab 1 tab once daily [Active]; potassium chloride 10 mEq Oral TbTQ 1 tab once daily [Active]; - PMHx: 13:53 Diabetes - NIDDM; multiple myleoma; Hypertension; TIA; jd3 - Immunization history:: Adult Immunizations up to date, Client reports receiving the 2nd dose of the Covid vaccine. - Social history:: Smoking status: Patient/guardian denies using tobacco, but has a distant history of tobacco abuse. - Immunization history: Last tetanus immunization: unknown. Screenin:02 Abuse screen: Denies threats or abuse. Nutritional screening: No deficits noted. jd3 Tuberculosis screening: No symptoms or risk factors identified. Fall Risk Ambulatory Aid- None/Bed Rest/Nurse Assist (0 pts). Gait- Normal/Bed Rest/Wheelchair (0 pts) Mental Status- Oriented to own ability (0 pts). Total Estrella Fall Scale indicates No Risk (0-24 pts). Primary Survey: 14:03 NO uncontrolled hemorrhage observed. A: The patient is alert. Airway: patent, No jd3 supplemental oxygen in use on arrival. Oral cavity: clear, Trachea midline. Breathing/Chest: Respiratory pattern: regular, Respiratory effort: spontaneous, unlabored, Chest inspection: symmetrical rise and fall of the chest. Circulation: Cardiac rhythm: sinus rhythm Pulses: palpable right radial artery, right dorsalis pedis artery, left radial artery and left dorsalis pedis artery. Skin color: pink, Skin temperature: warm. Disability Alert. Exposure/Environment: All clothing and personal items were removed. Forensic evidence collection is not deemed to be indicated at this time. Items placed in patient belonging bag. There is no evidence of uncontrolled external bleeding. No obvious injuries are noted at this time. 14:30 Reassessment Airway Airway Patent Oxygen No O2 Oral cavity Clear Trachea Midline jd3 Breathing/Chest Respiratory pattern Regular Respiratory effort Spontaneous Unlabored Chest inspection Symmetrical Circulation Heart rhythm Sinus rhythm Pulses Palpable Color [place] Temperature Warm Disability Alert. Secondary Survey: 14:03 HEENT: No deficits noted. Gastrointestinal: Patient reports Nausea. : No signs and/or jd3 symptoms were reported regarding the genitourinary system. Musculoskeletal: Circulation, motion, and sensation intact. Range of motion: intact in all extremities. Assessment: 14:01 General: Appears in no apparent distress. comfortable, Behavior is calm, cooperative, jd3 appropriate for age, Reports family reports he has been lethargic today compared to his normal. family reports multiple falls recently. no LOC. Pain: Complains of pain in back Quality of pain is described as aching. Neuro: Level of Consciousness is awake, alert, obeys commands, Oriented to person, place, time, situation. Cardiovascular: Capillary refill < 3 seconds Patient's skin is warm and dry. Rhythm is regular. Respiratory: Airway is patent Respiratory effort is even, unlabored, Respiratory pattern is regular, symmetrical. GI: Parent/caregiver reports the patient having nausea, vomiting. : No signs and/or symptoms were reported regarding the genitourinary system. EENT: No signs and/or symptoms were reported regarding the EENT system. Derm: Skin is intact, Skin is dry, Skin is normal, Skin temperature is warm. Musculoskeletal: No signs and/or symptoms reported regarding the musculoskeletal system. 15:23 Reassessment: Patient appears in no apparent distress at this time. Patient and/or jd3 family updated on plan of care and expected duration. Pain level reassessed. Patient is alert, oriented x 3, equal unlabored respirations, skin warm/dry/pink. provider at bedside discussing plan of care. 17:19 Reassessment: Patient appears in no apparent distress at this time. No changes from jd3 previously documented assessment. Patient and/or family updated on plan of care and expected duration. Pain level reassessed. Patient is alert, oriented x 3, equal unlabored respirations, skin warm/dry/pink. Vital Signs: 13:54 BP 173 / 100; Pulse 89; Resp 18 S; Temp 97.6(O); Pulse Ox 99% on R/A; Weight 81.65 kg jd3 (R); Height 6 ft. 0 in. (182.88 cm) (R); Pain 0/10; 14:28 BP 164 / 95; Pulse 74; Resp 17 S; Pulse Ox 100% on R/A; jd3 17:17 Pulse 64; Resp 19 S; Pulse Ox 100% on R/A; jd3 13:54 Body Mass Index 24.41 (81.65 kg, 182.88 cm) jd3 Norberto Coma Score: 14:05 Eye Response: spontaneous(4). Verbal Response: oriented(5). Motor Response: obeys jd3 commands(6). Total: 15. 14:28 Eye Response: spontaneous(4). Verbal Response: oriented(5). Motor Response: obeys jd3 commands(6). Total: 15. Trauma Score (Adult): 14:05 Eye Response: spontaneous(1); Verbal Response: oriented(1); Motor Response: obeys jd3 commands(2); Systolic BP: > 89 mm Hg(4); Respiratory Rate: 10 to 29 per min(4); Norberto Score: 15; Trauma Score: 12 14:28 Eye Response: spontaneous(1); Verbal Response: oriented(1); Motor Response: obeys jd3 commands(2); Systolic BP: > 89 mm Hg(4); Respiratory Rate: 10 to 29 per min(4); Marion Score: 15; Trauma Score: 12 ED Course: 13:46 Patient arrived in ED. ds1 13:48 Jose Rothman MD is Attending Physician. jennifer 13:51 Kaiden Berry RN is Primary Nurse. jd3 13:53 Triage completed. jd3 13:55 Arm band placed on. jd3 14:00 Maintain EMS IV. Dressing intact. Good blood return noted. Site clean \\T\\ dry. Gauge \\T\\ jan 3 site: 20 G to the left forearm. 14:02 Patient has correct armband on for positive identification. Bed in low position. Call jd3 light in reach. Side rails up X2. Adult w/ patient. associate spa director on. Pulse ox on. NIBP on. 14:04 CT Head C Spine In Process Unspecified. EDMS 14:05 Patient maintains SpO2 saturation greater than 95% on room air. Thermoregulation: warm jd3 blanket given to patient. 14:24 XRAY Chest (1 view) In Process Unspecified. EDMS 15:35 Tien Kang MD is Hospitalizing Provider. jennifer 17:16 No provider procedures requiring assistance completed. Patient admitted, IV remains in jd3 place. Administered Medications: 14:20 Drug: NS 0.9% 1000 ml Route: IV; Rate: 125 ml/hr; Site: left forearm; jd3 17:19 Follow up: Response: No adverse reaction; IV Status: Infusion continued upon admission jd3 15:31 Drug: Aspirin Chewable Tablet 81 mg Route: PO; jd3 16:30 Follow up: Response: No adverse reaction jd3 15:37 Drug: foLIC Acid 1 mg Route: IVPB; Site: left forearm; jd3 16:30 Follow up: Response: No adverse reaction; IV Status: Completed infusion jd3 Intake: 17:17 PO: 250ml (Water); IV: 250ml (IV Fluid); Total: 500ml. jd3 Output: 17:17 Urine: 500ml (Voided); Total: 500ml. jd3 Outcome: 15:36 Decision to Hospitalize by Provider. jennifer 17:16 Admitted to Med/surg accompanied by tech, via stretcher, room 210, with chart, Report jd3 called to Peter TINAJERO 17:16 Condition: stable 17:16 Instructed on the need for admit. 17:18 Patient's length of stay in the Emergency Department was greater than 2 hours. waiting jd3 for admissionPatient's length of stay extended due to 17:43 Patient left the ED. jd3 Signatures: Dispatcher [employer] EDMS Jose Rothman MD MD cha Sanford, Demi ds1 Kaiden Berry RN RN jd3 Corrections: (The following items were deleted from the chart) 14:20 14:00 Maintain EMS IV. Dressing intact. Good blood return noted. Site clean \\T\\ dry. jd3 Gauge \\T\\ site: 20 G to the left AC. jd3 14:21 14:04 Care prior to arrival: IV initiated. 20 GA, in the left antecubital area, jd3 jd3 15:38 14:20 NS 0.9% 1000 ml IV at 125 ml/hr in right forearm jd3 jd3 17:19 17:19 Response: No adverse reaction; IV Status: Completed infusion jd3 jd3
[2021-06-17 16:02] LABS: Urine Blood Negative (Negative); Urine Glucose 2+ (Negative); Urine Protein Negative (Negative)
--- NOTE | 2021-06-17 16:34 | P.HP ---
Certification for Inpatient Patient admitted to: Observation With expected LOS: <2 Midnights Practitioner: I am a practitioner with admitting privileges, knowledge of patient current condition, hospital course, and medical plan of care. Services: Services provided to patient in accordance with Admission requirements found in Title 42 Section 412.3 of the Code of Federal Regulations Patient History Date of Service: 06/17/21 Reason for admission: Falls, AMS, lethargy History of Present Illness: 86yo M, PMH: HTN, DM2, multiple myeloma, ataxic gait, frequent falls Brought into the ED due to increased lethargy, confusion, word finding difficulty at times over the last 2 days. Patient is accompanied by his granddaughter who he lives with. She states patient had a mechanical fall 2 days ago and hit his head on concrete. He was brought to ED, evaluated, and subsequently discharged home. The following day on 06/15, he took a step backwards and tripped, falling a second time, however at this time did not hit his head. Yesterday patient was noted to be more tired, slept for half the day, was somewhat slow to answer questions, and seemed to have some word finding difficulty at the end of some sentences. He denies any fevers, no chills, no particular weakness or new numbness. No nausea/vomiting, no changes in bowel or bladder habits. The granddaughter states he has not complained of anything else, no recent changes in medications. In the ED, CT head/C-spine was negative for any acute findings, similar to the one done 06/14. Lab work rather unremarkable, UA negative. ED physician requests admission for further management/evaluation. Allergies No Known Allergies Allergy (Verified 05/18/16 10:07) Home Medications: RX: Amlodipine Besylate/Benazepril [Amlodipine-Benazepril 10-40 mg] 1 tab PO BEDTIME 05/15/16 RX: Candesartan Cilexetil 2 mg PO BEDTIME 05/15/16 RX: Levothyroxine Sodium 50 mcg PO DAILY 05/15/16 RX: Metformin HCl [Glucophage] 1,000 mg PO DAILY AT SUPPER 05/15/16 RX: Rivaroxaban [Xarelto] 20 mg PO DAILY 05/15/16 RX: Sitagliptin Phosphate [Januvia*] 50 mg PO DAILY WITH BREAKFAST 05/15/16 Codeine/APAP [Tylenol W/Codeine #3 tab] 1 tab PO Q6HP PRN #20 tab 05/23/16 levoFLOXacin [Levaquin] 500 mg PO DAILY #10 tab 05/23/16 - Past Medical/Surgical History Diabetic: Yes -: myeloma -: htn -: mini strokes -: HTN -: hypothyroidism -: L knee surgery -: cataract sx - Family History Father -: Cancer - Social History Smoking Status: Former smoker (Many years ago) Alcohol use: No CD- Drugs: No Caffeine use: Yes Place of Residence: Home Review of Systems 10-point ROS is otherwise unremarkable Physical Examination - Physical Exam General: Alert, In no apparent distress, Oriented x3 HEENT: EOMI, Sclerae nonicteric Neck: Supple, No LAD Respiratory: Clear to auscultation bilaterally, Normal air movement Cardiovascular: No edema, Regular rate/rhythm Gastrointestinal: Soft and benign, Non-distended, No tenderness Integumentary: Other (Ecchymosis of left face, periorbital area) Neurological: Normal strength at 5/5 x4 extr, Normal affect, Other (Normal speech, but had word finding difficulty every 3rd-4th sentence) - Studies Laboratory Data (last 24 hrs) 06/17/21 13:50: PT 12.7 H, INR 1.10 06/17/21 13:50: WBC 10.20, Hgb 14.1, Hct 42.2, Plt Count 224 06/17/21 13:50: Sodium 135 L, Potassium 3.9, BUN 20 H, Creatinine 1.18, Glucose 272 H, Magnesium 2.1, Total Bilirubin 0.9, AST 19, ALT 52, Alkaline Phosphatase 63, Lipase 38 L Assessment and Plan - Advance Directives Does patient have a Living Will: No Does patient have a Durable POA for Healthcare: No Physician Review Additional Text: Problem List multiple falls, h/o ataxic gait AMS, lethargy, confusion likely post-concussive symptoms h/o TIAs Multiple myeloma HTN NIDDM2 s/p 2 mechanical falls at home more lethargic / confused / slow to answer in last [address] head negative no other focal neuro findings suspect post-concussive symptoms given h/o MM, TIAs, will obtain MRI to r/o CVA Neuro consulted gentle IVF overnight aspirin/plavix patient and family member unsure of all medications he takes, need to confirm and restart as appropriate PT consulted Code: DNR Dispo: anticipate dc home tomorrow after MRI Time Spent Managing Pts Care (In Minutes): 60
[2021-06-17] MEDS ORDERED: ONDANSETRON 4 MG/2 ML VIAL IV PRN (16:55)
[2021-06-17 18:26] VITALS: O2SAT 100
[2021-06-17] MEDS ORDERED: ATORVASTATIN 20 MG TAB PO SCH (21:00)
[2021-06-17] MEDS: INSULIN -REGULAR HUMAN 50 UNIT/0.5 ML ML SQ SCH ×2 (21:00→22:24)
[2021-06-17] MEDS: NA CHLORIDE 0.9% 1,000 ML IV SCH (22:18)
[2021-06-17] MEDS: ENOXAPARIN 40 MG/0.4 ML SQ SCH (22:18)
[2021-06-17 22:58] VITALS: BMI 3515.0
--- NOTE | 2021-06-18 05:55 | P.PN ---
Date of Service: 06/18/21
[2021-06-18 06:18] LABS: Absolute Lymphocytes (CBC) 1.7 K/uL (0.7-4.9); Hematocrit 42.7 % (39.6-49.0); Lymphocytes % 16.8 % (15.3-44.8); MPV 8.7 fL (7.6-11.3); RBC Red Blood Cell Count 4.69 M/uL (4.33-5.43)
[2021-06-18 07:43] LABS: Magnesium 2.1 mg/dL (1.8-2.4); Potassium 3.5 mmol/L (3.5-5.1)
[2021-06-18] MEDS: INSULIN -REGULAR HUMAN 50 UNIT/0.5 ML ML SQ SCH ×3 (08:15→16:49)
[2021-06-18] MEDS: ENOXAPARIN 40 MG/0.4 ML SQ SCH (08:16)
[2021-06-18] MEDS ORDERED: INSULIN GLARGINE 100 UNIT/ML SQ SCH (09:00)
[2021-06-18] MEDS ORDERED: ASPIRIN EC 81 MG TAB PO SCH (09:00)
[2021-06-18] MEDS ORDERED: CLOPIDOGREL 75 MG TABLET PO SCH (09:00)
[2021-06-18] MEDS ORDERED: HYDRALAZINE HCL 20 MG/ML VIAL IV PRN (11:56)
[2021-06-18] MEDS ORDERED: AMLODIPINE 10 MG TAB PO SCH (12:00)
[2021-06-18] MEDS ORDERED: BENAZEPRIL 20 MG TAB PO SCH (12:00)
[2021-06-18] MEDS ORDERED: D50W 25 GM/50 ML SYRINGE IV PRN (12:49)
[2021-06-18] MEDS ORDERED: GLUCAGON 1 MG/VIAL IM PRN (12:49)
[2021-06-18] MEDS: NA CHLORIDE 0.9% 1,000 ML IV SCH (13:00)
[2021-06-18] MEDS ORDERED: INSULIN -REGULAR HUMAN 50 UNIT/0.5 ML ML IV ONE (13:00)
[2021-06-18 16:56] VITALS: BP 160/70; TEMP 97.3
--- NOTE | 2021-06-18 18:27 | CON ---
Consultation called because of multiple falls. History Of Present Illness: Mr. France is an 86-year-old right-handed patient, who has mul tiple myeloma, hypertension, [id number]-nqzhrjmev diabetes mellitus, and at least around 4 years of frequent falls. He said he probably is falling more than once per week. There has not been an etiol ogy ascribed to his falls. The falls are reported as mechanical; however, he said he would just fall and not always have a reason to fall. His last fall was reportedly backwards. He barely hit the ba ck of his head and did not lose consciousness and came to [facility]. His granddaughter hel ped him. He was told he should be using a walker, but does not use the walker. His head and C-spine trauma series identified no acute intracranial or cervical spine abnormalities. However, there was small vessel disease identified, moderate in nature. There was a pronounced pannus formation at the C1-C2 level, but no central spinal stenosis. Further multilevel cervical spondylosis from C5-6 and C 6-7 with trace anterolisthesis of C3 on C4. However, these findings were felt not to be related to t rauma. He has a chest x-ray which showed lungs were grossly clear. No acute cardiothoracic processe s identified. His blood work included essentially unremarkable complete blood count with differentia l. INR 1.1. His chemistries remarkable for glucose that is uncontrolled up to 333; calcium actually was initially 5 and did have hydration, it was 8.7, went to 8.2; creatinine 1.27. His COVID-19 test is negative. Past Medical History: As noted. Allergies: NO KNOWN DRUG ALLERGIES. Medications: At home, amlodipine, benazepril 10/40 one at bedtime, levothyroxine 50 mcg daily, Gluco phage 1000 mg daily, Xarelto 20 mg daily, Januvia 50 mg daily, Tylenol 3 every 6 hours as needed. Past Surgical History: Left knee surgery, cataract surgery. Family History: Positive for cancer in father. Social History: No current smoking. He smoked many years ago. Does drink caffeinated beverages. D enies alcohol use. Review of Systems: He reports difficulty with his gait, balance, coordination, and at times difficulty finding words and getting thoughts together. Denies any problems with his bladder function, bowel function. No signi ficant arthritic changes. No generalized muscle aches. Does have some bruising, likely related to h is Xarelto. Physical Examination: Vital Signs: Blood pressure 144 up to 203 systolic over 67 to 85 diastolic, pulse rate ranged from 5 4 to 75, temperature 97.9, oxygen saturation 98%, respiratory rate 16 to 20. General: Mr. France is resting in bed. He looks somewhat disheveled. He is, otherwise, has some ortiz pra and infra orbital bleeding below the skin, area of bruising in the left cheek with redness above and below, and some mild bruising noted on the left more than right upper extremity, likely related t o his fall. Otherwise, atraumatic. HEENT: Sclerae anicteric. Oropharynx is moist. Neck: Supple. Chest: Clear. Abdomen: Soft and thin. Extremities: Bruising noted. No cyanosis or edema. Neurologic: He is alert and oriented to situation, place, and person. He follows simple commands wi thout difficulty. He is slow to speak, but is appropriate. Did not have any word-finding difficulti es or problems expressing himself. His cranial nerve examination showed no focal deficits. His elizabeth r examination of upper and lower extremities showed mild diffuse weakness around 4+. He does not hav e any focal findings there. Sensory exam shows stocking-glove loss, light touch to temperature, and reflexes symmetric and depressed in upper and lower extremities. He ambulated with no assistive conrad ce covering over 300 feet with minimum assistance required. He also ambulated with an assistive conrad ce. He did have difficulty with balance during ambulation, had some problems with his functional tra nsfers. It was recommended that the patient have skilled physical therapy to address those limitatio ns and also to improve his performance of activities of daily living and reduce his fall risk. If po ssible, the patient may be a candidate for inpatient rehabilitation. Assessment: Mr. France is an 86-year-old patient with: 1.Multiple falls over several years. 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 2.He does have uncontrolled hypertension and diabetes mellitus. 3.Hypothyroidism. Plan: 1.If possible inpatient physical, occupational, and speech therapy. 2.Consider high-volume lumbar puncture for assessment of gait. He has had a Watchman procedure and is unable to get an MRI at this facility. 3.May continue with anticoagulation with Xarelto, which can also lead to stroke and myocardial infar ction risk. 4.The patient should be ambulating with a walker to reduce his fall risk. 5.If the patient chooses to be discharged home, family may encourage him to pursue aggressive physic al therapy either at home or if he can safely transfer back and forth by a car to outpatient physical therapy. JOE/GARRET Voice ID: [id number] Report ID: [id number]
--- NOTE | 2021-06-18 21:03 | P.DS ---
Admission Date: 06/17/21 Discharge Date: 06/18/21 Disposition: DC HOME/HOME HEALTH CARE Discharge Condition: GOOD Reason for Admission: Falls, AMS Consultations: Neurology - Dr. Dumont Procedures: CXR (06/17): IMPRESSION: No acute intrathoracic process suspected. CT Head/C-spine (06/17): FINDINGS: CT HEAD WITHOUT CONTRAST: No acute hemorrhage, hydrocephalus or extra-axial collection is identified.No areas of brain edema or midline shift. Moderate chronic small vessel ischemic changes. Mucous retention cyst in left maxillary sinus.The calvarium is intact. CT CERVICAL SPINE WITHOUT CONTRAST: No fracture or acute subluxation.No prevertebral soft tissues swelling is identified. Pronounced pannus formation at the C1-C2 level but no central spinal stenosis. Multilevel cervical spondylosis with varying degrees of neural foraminal narrowing which is most notable at the C5-6 and C6-7 levels. Trace anterolisthesis of C3 on C4 is noted. This is likely related to underlying degenerative changes rather than trauma. Carotid artery calcifications. IMPRESSION: No acute intracranial or cervical spine findings. Problem List multiple falls, h/o ataxic gait AMS, fatigue likely post-concussive symptoms h/o TIAs Multiple myeloma HTN NIDDM2 Brief History of Present Illness: 86yo M, PMH: HTN, DM2, multiple myeloma, ataxic gait, frequent falls Brought into the ED due to increased lethargy, confusion, word finding difficulty at times over the last 2 days. Patient is accompanied by his granddaughter who he lives with. She states patient had a mechanical fall 2 days ago and hit his head on concrete. He was brought to ED, evaluated, and subsequently discharged home. The following day on 06/15, he took a step backwards and tripped, falling a second time, however at this time did not hit his head. Yesterday patient was noted to be more tired, slept for half the day, was somewhat slow to answer questions, and seemed to have some word finding difficulty at the end of some sentences. He denies any fevers, no chills, no particular weakness or new numbness. No nausea/vomiting, no changes in bowel or bladder habits. The granddaughter states he has not complained of anything else, no recent changes in medications. In the ED, CT head/C-spine was negative for any acute findings, similar to the one done 06/14. Lab work rather unremarkable, UA negative. ED physician requests admission for further management/evaluation. Hospital Course: Patient reported feeling back to baseline. He slept well and was alert/awake the following day. He worked with PT, ambulated 300 feet, noted to have ataxic gait and some difficulty with transfers. No focal neurologic findings. MRI was unable to be obtained due to h/o Watchmen procedure and patient/family unable to produce the device card to determine if MRI compatible or not. Neurology was consulted, recommended consideration of normal-pressure hydrocephalus vs peripheral neuropathy (secondary to multiple myeloma with a pareneoplastic condition / diabetic neuropathy) as part of the differential d iagnosis. Recommended aggressive physical therapy if patient agreeable. Consider high-volume lumbar puncture for assessment of gait. Patient refused inpatient rehab and outpatient rehab. Family stated this has been an ongoing issue. They have tried several different avenues and encouragements to get patient to participate more in PT. Agreeable to home PT. Family stated the patient knows he is not supposed to walk on his own but does so anyway. Discharged home to palliative care per patient's family preference Vital Signs/Physical Exam: Physical Exam General: Alert, In no apparent distress, Oriented x3 HEENT: EOMI, Sclerae nonicteric Neck: Supple, No LAD Respiratory: Clear to auscultation bilaterally, Normal air movement Cardiovascular: No edema, Regular rate/rhythm Gastrointestinal: Soft and benign, Non-distended, No tenderness Integumentary: Other (Ecchymosis of left face, periorbital area) Neurological: Normal strength at 5/5 x4 extr, Normal affect, Other (Normal speech, but had word finding difficulty every 3rd-4th sentence) Temp Pulse Resp BP Pulse Ox 97.3 F 74 22 H 160/70 H 98 06/18/21 16:55 06/18/21 16:55 06/18/21 16:00 06/18/21 16:55 06/18/21 16:00 Laboratory Data at Discharge: WBC 10.30 K/uL (4.3-10.9) 06/18/21 05:55 Hgb 14.3 g/dL (13.6-17.9) 06/18/21 05:55 Hct 42.7 % (39.6-49.0) 06/18/21 05:55 Plt Count 206 K/uL (152-406) 06/18/21 05:55 PT 12.7 SECONDS (9.5-12.5) H 06/17/21 13:50 INR 1.10 06/17/21 13:50 Sodium 138 mmol/L (136-145) 06/18/21 07:19 Potassium 3.5 mmol/L (3.5-5.1) 06/18/21 07:19 BUN 21 mg/dL (7-18) H 06/18/21 07:19 Creatinine 1.27 mg/dL (0.55-1.3) 06/18/21 07:19 Glucose 276 mg/dL (74-106) H 06/18/21 07:19 Magnesium 2.1 mg/dL (1.8-2.4) 06/18/21 07:19 Total Bilirubin 0.9 mg/dL (0.2-1.0) 06/17/21 13:50 AST 19 U/L (15-37) 06/17/21 13:50 ALT 52 U/L (12-78) 06/17/21 13:50 Alkaline Phosphatase 63 U/L (45-117) 06/17/21 13:50 Lipase 38 U/L (73-393) L 06/17/21 13:50 Home Medications: Amlodipine Besylate/Benazepril [Amlodipine-Benazepril 10-40 mg] 10 mg PO BEDTIME 05/15/16 Levothyroxine Sodium 75 mcg PO DAILY 05/15/16 Metformin HCl [Glucophage] 500 mg PO DAILY 05/15/16 Sitagliptin Phosphate [Januvia*] 50 mg PO BID 05/15/16 Aspirin 81 mg PO DAILY 06/18/21 Atorvastatin Calcium [Lipitor] 80 mg PO BEDTIME 06/18/21 Clopidogrel Bisulfate [Plavix*] 75 mg PO DAILY 06/18/21 Fluoxetine HCl 10 mg PO DAILY 06/18/21 Glimepiride 2 mg PO DAILY 06/18/21 Physician Discharge Instructions: CT head and c-spine were negative for stroke or fractures. Unable to obtain MRI due to your watchmen and inability to find further information on it. You did not exhibit any focal neurologic findings concerning for stroke. Neurology - Dr. Dumont, was consulted, recommended physical therapy and use of a walker to prevent further falls. An MRI as an outpatient is recommended, please obtain information on the watchmen procedure you had done to see if you are able to get an MRI Follow up with Dr. Dumont in ~1 month Follow up with PCP in ~1 week Continue home medications as prescribed. Suspect your fatigue / mild confusion is secondary to post-concussive syndrome CT did show microvascular ischemic changes - which may be causing a mild dementia as well. Diet: ADA Activity: Fall precautions Time spent managing pt's care (in minutes): 45
--- NOTE | 2021-06-19 15:19 | EKG ---
Test Date: 2021-06-17 Test Time: 14:31:00 Water/Wastewater Project Manager: LEONARD MEASUREMENT RESULTS: Intervals: Rate: 73 WV: 308 QRSD: 78 QT: 402 QTc: 442 [place]: P: 37 WV: 308 QRS: 19 T: -11 INTERPRETIVE STATEMENTS: Sinus rhythm with 1st degree AV block Otherwise normal ECG Compared to ECG 10/13/2020 12:05:30 Myocardial infarct finding no longer present Electronically Signed On 06-19-21 15:15:04 [employer] PU[employer]LE [employer] by Gen Porter
--- NOTE | 2021-06-22 10:27 | EEG ---
CHART: [id number] TEST ID#: [id number] DATE OF STUDY: 06/18/2021 THE EEG WAS RECORDED PORTABLE IN THE PATIENT'S ROOM ON A 17 CHANNEL MACHINE. ELECTRODES WERE APPLIED IN THE USUAL MANNER USING THE INTERNATIONAL 10-20 SYSTEM. THE WAKING BACKGROUND RHYTHM IN THIS RECORD CONSISTS OF FAIRLY WELL DEVELOPED AND FAIRLY WELL ORGANIZED WAVES OF 7 HZ., MAXIMAL IN THE POSTERIOR HEAD REGIONS WHICH ATTENUATE NORMALLY WITH EYE OPENING. LOW-VOLTAGE 15-18 HZ ACTIVITIY IS EXPRESSED IN THE FRONTAL REGIONS. THERE ARE NO FOCAL OR LATERALIZING FEATURES. NO EPILEPTIFORM ACTIVITY APPEARS. SLEEP OCCURRED NATURALLY. IN ADDITION NORMAL SLEEP PATTERNS. HYPERVENTILATION WAS NOT PERFORMED. PHOTIC STIMULATION PRODUCED NO DRIVING BILATERALLY. IMPRESSION: THIS IS A MILDLY ABNORMAL ROUTINE EEG DUE TO THE PRESENCE OF A MILDLY SLOW BACKGROUND. THIS IS A NON-SPECIFIC FINDING INDICATING THE PRESENCE OF A MILD DIFFUSE DISTURBANCE IN CEREBRAL FUNCTION.
== END 2021-06-18 17:30 | disposition home health service (06) ==
LOC: ER 13:45 → ERHOLD 16:31 → 2ND 17:17
PROVIDERS: ADMIT Hospitalist; ATTEND Hospitalist
DX: R41.82 Altered mental status, unspecified (principal); R53.83 Other fatigue; R26.0 Ataxic gait; R41.0 Disorientation, unspecified; C90.00 Multiple myeloma not having achieved remission; I10 Essential (primary) hypertension; E11.9 Type 2 diabetes mellitus without complications; E03.9 Hypothyroidism, unspecified; Z66 Do not resuscitate; Z91.81 History of falling; Z86.73 Personal history of transient ischemic attack (TIA), and cerebral infarction without residual deficits; Z87.891 Personal history of nicotine dependence; Z20.822 Contact with and (suspected) exposure to COVID-19; Z80.9 Family history of malignant neoplasm, unspecified
CPT/HCPCS: 96365; 96361; 93005; 95819; 85025 ×2; 80048 ×2; 36415; 83735 ×2; 85610; 82947 ×4; 80076; 81003; 84484; 83690; 83880; 70450; 72125; 71045; 97161; 94760; 99285; U0003; J1650 ×2; J7030 ×2; G0378 ×3

== ENCOUNTER 2021-10-12 14:23 | Inpatient (IN) | payer OTHER ==
--- OUTSIDE RECORDS SUMMARY | 2021-10-12 14:27 | XMS REPORT | Clinical Summary ---
:1935 Author Organization [facility] MD [facility] Address [address] [place] [address] Care Team Providers Name Role Phone Alexis Solis MD Primary Care Provider Robby Abraham MD Unavailable Robby Abraham MD Unavailable Jovita Butts NP Unavailable Sid Galaviz NP Unavailable Alexis Solis MD Unavailable Kriss Hernandez MD Unavailable [phone] Allergies No known active allergies Medications [...] 02/28/2018 Hypothyroidism 03/05/2016 Last Assessment & Plan: Formatting of is note might be different from the original. Continue on synthroid. This is monitore d by his local physician. Essential hypertension 03/05/2016 Last Assessment & Plan: Formatting of is note is different from the original. His blood pressure is BP Readings from Last 1 Encounters: 02/22/17 132/79 . Continue current blood pressure anitra men and follow with PCP. Type 2 diabetes mellitus without complication 03/05/20 16 Last Assessment & Plan: Formatting of is note might be different from the original. He will continue on janumet and follow w ith his local PCP. Encounters Date Type Specialty Care Team Description 07/23/2021 Telephone Lymphoma and Myeloma Shalonda Kim Ap pointment RN 06/10/2021 Orders Only Lymphoma and Myeloma Aditi Butts ltiplmanish myeloma Jovita, HYDRAULIC GOVERNOR ASSEMBLER (Primary Dx) 02/02/2021 Telephone Lymphoma and Myeloma Alison Mcgarry Follow- up after 10/12/2020 Immunizations Name Administration Dates Next Due Influenza, [...] Vaccination (1) 1947 Results Not on fileafter 10/12/2020 Insurance Payer Benefit Plan / Subscriber ID Effective Dates Phone Addre ss Type Group AETNA MEDICARE AETNA MEDICARE [id number] 2021-Marian [address] [place] [address] Valerio France Personal/Family Self [phone] (Home) [place] [id number] Valerio France Personal/Family Self [phone] [facility] (Home) [address] [place] [address] Care Teams Community Service Representative Relationship Specialty Start Date End Date Celine Solis MD PCP - General 07/29/[address] [place] [id number] Remington Abraham MD PCP - External Referring 06/11/14 Remington Abraham MD PCP - External Follow Up A 06/11/14 Aditi Butts, HYDRAULIC GOVERNOR ASSEMBLER Nurse Practitioner 08/05/[address] [place] [id number] Nancy Galaviz, HYDRAULIC GOVERNOR ASSEMBLER Nurse Practitioner 08/05/[address] [place] [id number] Celine Solis MD Physician 08/05/[address] [place] [phone] Gloria Hernandez Hematology 8/7/19 MD Kriss [address] [address]
--- OUTSIDE RECORDS SUMMARY | 2021-10-12 14:28 | XMS REPORT | Continuity of Care Document ---
:1935 Author Organization [facility] t Address [address] [place] [address] Care Team Providers Name Role Phone [phone] Primary Care Physician Unavailable JOHN CORDOVA Attending Clinician Unavailable Julio RN, D Attending Clinician Jovita Grant NP Attending Clinician Aye LAO, S Attending Clinician Doctor Unassigned, Name Attending Clinician Unavailable Mcgarry Attending Clinician Unavailable DREAD ARIZA Attending Clinician Unavailable OBLE Attending Clinician Unavailable Jovita Franz Attending Clinician CAMILLE Attending Clinician Unavailable Lab, Fam Pob I Attending Clinician Unavailable Camille PADILLAP Attending Clinician Alexis MARCIAL Attending Clinician Unavailable Jovita GRANT Attending Clinician Unavailable DREAD ARIZA Admitting Clinician Unavailable Payers Payer Name Policy Type Policy Number Effective Date Expiration Date S astrid AETNA MEDICARE [id number] 2013 PPO 00:00:00 [employer]ET[employer] MEDICARE [id number] 2013 PPO 00:00:00 MEDICARE [id number] 2013 ADVANTAGE GENERIC 00:00:00 00:00:00 Problems Condition Condition Condition Status Onset Resolution Last Treating Co mments Source Name Details Category Date Date Treatment Clinician Date TIA Diagnosis Active 2018-052019-05-10 Mem oria 07-05 22:06:00 l TIA 00:00: Vik 00 Active 05/04/2019 [facility] Drug-induc Drug-induc Disease Active M D [...] Mem oria 11-25 13:21:00 l STROKE 00:00: [place] 00 Active 11/25/2013 ERNST TIRR Type II Problem Active 2019-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 22:42:21 l mellitus Type II Edna nn uncontroll diabetes ed mellitus (finding) uncontroll ed (finding) Active Problem 05/07/2019 ERNST Anderson TRANSIENT Diagnosis Active 2019-05-10 Memoria CEREBRAL 22:06:00 l ISCHEMIC Vik ATTACK, TRANSIENT UNSP CEREBRAL ISCHEMIC ATTACK, UNSP Active [facility] [place] Diabetes Problem Resolve 2019-05-07 Me moria mellitus d 22:42:21 l (disorder) Diabetes He rmann mellitus (disorder) Resolved Problem 05/07/2019 Alexis Newman, OPIAlexander Vik Hypertensi Problem Resolve 2019-05-07 Memoria ve d 22:42:21 l disorder, Vik systemic Hypertensi arterial ve (disorder) disorder, systemic arterial (disorder) Resolved Problem 05/07/2019 Alexis Newman, SUZETTE [place] Transient Problem Resolve 2019-05-07 M emoria ischemic d 22:42:21 l attack Vik (disorder) Transient ischemic attack (disorder) Resolved Problem 05/07/2019 Alexis Newman, SUZETTE [place] Allergies, Adverse Reactions, Alerts Allergy Allergy Status Severity Reaction(s) Onset Inactive Treating Comm ents Source Name Type Date Date Clinician NO KNOWN Drug Active [facility] ALLERGIE Class [facility] [place] [facility] Family History Family Member Diagnosis Comments Start Date Stop Date Source Natural father -Genitourinary (Bladder, MD Rothman Kidney, Prostate, Testicle) Social History Social Habit Start Date Stop Date Quantity Comments Source Exposure to Yes [facility] SARS-CoV-2 [place] [facility] (event) [facility] History of Cigar Smoker MD Rothman tobacco use Alcohol intake 2018-03-23 2018-03-23 Current MD Prisca sanchez 00:00:00 00:00:00 non-drinker of alcohol (finding) Tobacco Comment 2015-09-22 2015-09-22 quit in 1959 MD Irving gupta 00:00:00 00:00:00 Tobacco use and 2015-09-22 2015-09-22 Smokeless tobacco MD Stephan exposure 00:00:00 00:00:00 non-user Social History 2013-10-27 2013-10-27 [facility] erik 07:44:46 07:44:46 Sex Ass[birth year] At [birth year] MD Espinosa on 00:00:00 00:00:00 Smoking Status Start Date Stop Date Source Unknown if ever smoked [facility] Ex-smoker 2015-09-22 00:00:00 2015-09-22 00:00:00 MD [...] 1,200 mg at 1700, Routine ondansetron Yes [id number] 4mg Take 1 Univers (ZOFRAN 02-04 tablet by ity of ODT) 4 mg 00:00: mouth [place] disintegrat 00 every 8 Medic al ing tablet (eight) Branch hours as needed for Nausea and Vomiting (N/V). ondansetron Yes [id number] 4mg Take 1 Univers (ZOFRAN 9-09 tablet [...] n 2-09 (Same as: l 03:00: Lipitor) [place] 00 atorvastati 2018-05 Yes 20 mg = 1 M emoria n 20 MG 2-08 tab, PO, l Oral Tablet 22:04: Bedtime, # [place] [Lipitor] 00 30 tab, 0 Refill(s), [facility]acy: [id number] Metformin 2018-05 Yes 1,000 mg = Me moria hydrochlori 2-08 1 tab, PO, l de 1000 MG 22:04: BID-Meals, H ermann Oral Tablet 00 # 30 tab, 0 Refill(s), Pharmacy: [id number] canaglifloz 2018-05 Yes 100 mg = 1 Memoria in 100 MG 2-08 tab, PO, l Oral Tablet 22:04: Before Herm filemon [Invokana] 00 Breakfast, # 30 tab, 2 Refill(s), Pharmacy: [facility] #[id number] pantoprazol 2018-05 No Notes: For Memoria e [...] 2-08 25 mL, l (D50W) 05:07: Route: [place] 00 IVP, Drug Form: INJ, Dosing Weight 86.477, kg, PRN, PRN Blood Glucose Results, Start date: 05/04/19 23:07:00 WEB SITE SPECIALIST, Duration: 30 day, Stop date: 06/03/19 23:06:00 WEB SITE SPECIALIST, 0 Glucagon 2018-05 No 1 mg, Memoria 2-08 Route: IM, l 05:07: Drug form: Vik 00 PDR/INJ, PRN, Dosing Weight 86.477, kg, PRN Blood Glucose Results, Start date: 05/04/19 23:07:00 WEB SITE SPECIALIST, Duration: 30 day, Stop date: 06/03/19 23:06:00 WEB SITE SPECIALIST, 0 Insulin 2018-05 No Notes: Memoria Lispro [...] not crush l Coated 05:00: or chew. [place] Tablet (Same As: Ecotrin) Acetaminoph 2018-05 No [...] Memoria 2-08 microgram, l 04:15: PO, Daily, [place] 00 0 Refill(s) Amlodipine 2018-05 Yes 1 [...] MD Rothman Unspecified 00:00:00 pneumococcal 2013-10-28 Completed [facility] 23-valent vaccine 01:27:00 [place] Vital Signs Vital Name Observation Time Observation Value Comments Source Systolic blood 2021-02-04 21:00:00 121 mm[Hg] Univer sity pressure [facility] Diastolic blood 2021-02-04 21:00:00 69 mm[Hg] [facility] Heart rate 2021-02-04 21:00:00 68 /min [facility] Respiratory rate 2021-02-04 21:00:00 20 /min [facility] acute hospital Oxygen saturation in 2021-02-04 21:00:00 98 /min [facility] Arterial blood by [facility] Pulse oximetry [place] Body temperature 2021-02-04 18:30:00 36.44 [facility] Body weight 2021-02-04 18:30:00 90.719 kg [facility] WEIGHT 2019-12-20 09:44:00 87.9 kg Temperature Oral (F) 2019-05-05 18:10:00 97.2 F [facility] [place] Heart Rate 2019-05-05 18:10:00 [facility] Vik Respitory Rate 2019-05-05 18:10:00 Memori al Vik Systolic (mm Hg) 2019-05-05 18:10:00 Chema rial Vik Diastolic (mm Hg) 2019-05-05 18:10:00 Mem orial [place] Temperature Oral (F) 2019-05-05 14:15:00 97.3 F [facility] Vik Heart Rate 2019-05-05 14:15:00 [facility] [place] Respitory Rate 2019-05-05 14:15:00 Memori al [place] Systolic (mm Hg) 2019-05-05 14:15:00 Chema rial Vik Diastolic (mm Hg) 2019-05-05 14:15:00 Mem orial Vik Temperature Oral (F) 2019-05-05 10:24:00 97.3 F Katherine Chery Heart Rate 2019-05-05 10:24:00 Katherine Chery Respitory Rate 2019-05-05 10:24:00 Kelly pineda Vik Systolic (mm Hg) 2019-05-05 10:24:00 Chema rial [place] Diastolic (mm Hg) 2019-05-05 10:24:00 Mem orial [place] Height 2019-05-05 04:10:00 187.96 cm [facility] Vik Weight 2019-05-05 04:10:00 [facility] Vik BMI Calculated 2019-05-05 04:10:00 Kelly Ochoa Procedures Procedure Date / Time Performed Performing Clinician Sour e URINALYSIS 2021-02-04 19:29:00 Antonia Griffiths [facility] COMP. METABOLIC PANEL 2021-02-04 19:28:00 Antonia Griffiths [facility] ([id number]) [facility] CBC WITH DIFF 2021-02-04 19:28:00 Antonia Griffiths [facility] COVID-19 (ID NOW RAPID 2021-02-04 19:28:[address] [facility] TESTING) [facility] NOTICE OF PRIVACY 2021-02-04 18:23:58 Doctor Unassigned, No [facility] PRACTICES Name [facility] CONSENT/REFUSAL FOR 2021-02-04 18:23:46 Doctor Unassigned, No [facility] DIAGNOSIS AND Name [facility] [place] T[facility] Plan of Care Planned Activity Planned Date Details Comments Source Future Scheduled Test 1947 00:00:00 COVID-19 Vaccination MD Rothman (1) [code = COVID-19 Vaccination (1)] Encounters Start End Encounter Admission Attending Care Care Encounter Source Date/Time Date/Time Type Type Clinicians Facility Department ID 2021-03-29 Emergency [facility] [id number] Univers 21:33:06 ity [facility] 2020-12-08 Outpatient [facility] [id number] [place] 09:50:26 [facility] 2020-10-03 Outpatient [facility] [id number] [place] 03:25:33 Manuela CORDOVA 2019-12-16 Outpatient MDA TARYN [id number] 07:06:56 Prisca sanchez 2021-02-04 2021-02-04 Emergency Aye RUST [id number] Univers 13:39:00 18:19:00 Antonia Reno 350.1.13.10 i ty [facility] 4.2.7.2.686 [facility] [id number] [facility] 084 Branch 2021-02-04 2021-02-04 Orders Doctor LINH [id number] Univers 00:00:00 00:00:00 Only Unassigned, FARZANA 350.1.13.10 ity of [place] [facility] 4.2.7.2.686 Jose as [id number] [facility] 009 Branch 2020-10-13 2020-10-17 Inpatient E TO, [facility] [id number] [facility] 17:23:00 10:25:00 ANJASABINA 2020-06-04 2020-06-04 Outpatient BIGG, [facility] CAR [id number] [facility] 08:45:00 23:59:00 KATELYN 2020-01-25 2020-01-25 Telephone LINH Jennings [id number] [facility] 00:00:00 00:00:00 Ashley YANES 350.1.13.10 i ty of [facility] 4.2.7.2.686 Jose as [id number] [facility] 019 Branch 2020-01-25 2020-01-25 Telephone LINH Jennings [id number] 00:00:00 00:00:00 Ashley YANES 350.1.13.10 [place] [id number] 2020-01-24 2020-01-24 Outpatient Rosa NUR [facility] [id number] Univers 16:40:00 16:40:00 MARCELA mooney of [facility] 2020-01-24 2020-01-24 Laboratory Lab, Adc Fam Pob I RUST [id number] Univers 14:45:15 15:30:48 Only Anene, Marcela Health 350.1.13.10 ity [facility] 4.2.7.2.686 Jose as Professio [phone] Me dical [address] Office [address] 2020-01-24 2020-01-24 Laboratory Lab, [facility] [id number] 14:45:15 15:30:48 Only Fam Pob I Health 350.1.13.10 [place] 4.2.7.2.686 Professio [id number] nal [facility] Office Building One 2020-01-24 2020-01-24 Outpatient R [facility] [id number] Univers 15:15:00 15:15:00 [id number] ity [facility] 2019-12-20 2019-12-20 Outpatient MAITE MARCIAL MDA MDA [id number] 09:37:45 11:58:12 NAHID sanchez 2019-12-20 2019-12-20 Outpatient MAITE MARCIAL, MDA MDA [id number] 10:47:51 10:47:51 NAHID sanchez 2019-12-20 2019-12-20 Outpatient MAITE MARCIAL, MDA MDA [id number] 00:00:00 00:00:00 NAHID sanchez 2019-12-18 2019-12-18 Outpatient MAITE GRANT MDA MDA [id number] 09:29:08 23:59:00 TONIA sanchez 2019-12-16 2019-12-16 Outpatient MAITE GRANT MDA MDA [id number] 06:25:15 06:25:15 TONIA sanchez 2019-05-05 2019-05-05 Observatio nullFlavo [facility] [id number] Memoria 04:57:00 22:54:00 laura Chery 41 l [facility] 2019-05-04 2019-05-04 Outpatient U MHBL MED [id number] [facility]BL 22:57:00 22:57:00 2013-12-06 2013-12-07 Outpatient nullFlavo [facility] [id number] Memoria 18:00:00 04:59:00 rosa Chery 00 l JENISE [place] 2013-12-06 2013-12-07 Outpt Diag nullFlavo [facility] [id number] Memoria 15:19:00 04:59:00 Services r Outpatient 00 l Imaging Vikfilemon Fayeann Results Test Description Test Time Test Comments Results Result Comments Source COMP. METABOLIC PANEL (79226) 2021-02-04 20:24:39 Test Item Value Reference Range Interpretation Comme nts NA (test code = 2028205691) 136 mmol/L 135-145 K (test code = 2896155167) 4.2 mmol/L 3.5-5.0 CL (test code = 9819544238) 102 mmol/L 98-108 CO2 TOTAL (test code = 0101803170) 21 mmol/L 23-31 L AGAP (test code = 0172549741) 2-16 BUN (test code = 1202831905) 27 mg/dL 7-23 H GLUCOSE (test code = 7082650150) 133 mg/dL 70-110 H CREATININE (test code = 1.27 mg/dL 0.60-1.25 H 5427178479) TOTAL BILI (test code = 1.6 mg/dL 0.1-1.1 H 5898653966) CALCIUM (test code = 0381987241) 9.1 mg/dL 8.6-10.6 T PROTEIN (test code = 3297529900) 6.9 g/dL 6.3-8.2 ALBUMIN (test code = 1517827920) 3.7 g/dL 3.5-5.0 ALK PHOS (test code = 1641835382) 78 U/L 34-122 ALTv (test code = 1742-6) 34 U/L 5-50 AST(SGOT) (test code = 8197491065) 43 U/L 13-40 H eGFR (test code = 0324956392) mL/min/1.73m2 DANIEL (test code = DANIEL) Association [...] tests). Lab Interpretation (test code = Abnormal 55958-7) [facility]. METABOLIC PANEL (04219)2021-02-04 20:24:39 Test Item Value Reference Range Interpretation Comments NA (test code = 136 mmol/L 135-145 1759630843) K (test code = 4.2 mmol/L 3.5-5.0 5796229829) CL (test code = 102 mmol/L 98-108 7763254836) CO2 TOTAL (test code = 21 mmol/L 23-31 L 3290260799) AGAP (test code = 2-16 8297078215) BUN (test code = 27 mg/dL 7-23 H 2127507540) GLUCOSE (test code = 133 mg/dL 70-110 H 2614726770) CREATININE (test code = 1.27 mg/dL 0.60-1.25 H 6131762561) TOTAL BILI (test code = 1.6 mg/dL 0.1-1.1 H 9345688408) CALCIUM (test code = 9.1 mg/dL 8.6-10.6 4488560327) T PROTEIN (test code = 6.9 g/dL 6.3-8.2 3793907042) ALBUMIN (test code = 3.7 g/dL 3.5-5.0 8553376583) ALK PHOS (test code = 78 U/L 34-122 6857490784) ALTv (test code = 34 U/L 5-50 1742-6) AST(SGOT) (test code = 43 U/L 13-40 H 2132811889) eGFR (test code = mL/min/1.73m2 1313168495) DANIEL (test code = DANIEL) Association of [...] tests). Lab Interpretation Abnormal (test code = 95584-1) [facility] [id number] 19:52:11 Test Item Value Reference Range Interpretation Comments APPEARANCE (test code = Clear Clear 9450561978) COLOR (test code = Yellow Yellow 4275391512) PH (test code = 4.8-8.0 0500313274) SP GRAVITY (test code = 1.003-1.030 9121175634) GLU U QUAL (test code = Normal Normal 0997913879) BLOOD (test code = Negative Negative 4248044164) KETONES (test code = Negative Negative 2524869112) PROTEIN (test code = Negative Negative 2887-8) UROBILIN (test code = Normal Normal 0319092760) BILIRUBIN (test code = Negative Negative 6903803912) NITRITE (test code = Negative Negative 6510661594) LEUK DANELLE (test code = Negative Negative 2617349330) RBC/HPF (test code = See_Comment [Autom ated message] 4015950350) The system [employer] generated this result transmitted ref erence range: 0 - 3 HP F. The reference range was not used to int erpret this result as normal/abnormal . WBC/HPF (test code = See_Comment [Autom ated message] 0739734116) The system [employer] generated this result transmitted ref erence range: 0 - 5 HP F. The reference range was not used to int erpret this result as normal/abnormal . BACTERIA (test code = Negative Negative 8523578195) MUCOUS (test code = Slight Negative LPF A 0611775314) HYAL CAST (test code = See_Comment H [Aut omated message] 3095013100) The system [employer] generated this result transmitted ref erence range: <=2 LPF. The reference range was not used to int erpret this result as normal/abnormal . Lab Interpretation (test Abnormal code = 70895-9) [facility], TXURINALYSIS2021-09-09 19:52:11 Test Item Value Reference Range Interpretation Comments APPEARANCE (test code = Clear Clear 0069563494) COLOR (test code = Yellow Yellow 5812048118) PH (test code = 4.8-8.0 1047777981) SP GRAVITY (test code = 1.003-1.030 8429205242) GLU U QUAL (test code = Normal Normal 4359275263) BLOOD (test code = Negative Negative 9548872691) KETONES (test code = Negative Negative 0813107528) PROTEIN (test code = Negative Negative 2887-8) UROBILIN (test code = Normal Normal 3535626528) BILIRUBIN (test code = Negative Negative 9893842799) NITRITE (test code = Negative Negative 5294307349) LEUK DANELLE (test code = Negative Negative 6618659080) RBC/HPF (test code = See_Comment [Autom ated message] 0629602370) The system [employer] generated this result transmitted ref erence range: 0 - 3 HP F. The reference range was not used to int erpret this result as normal/abnormal . WBC/HPF (test code = See_Comment [Autom ated message] 9181324120) The system [employer] generated this result transmitted ref erence range: 0 - 5 HP F. The reference range was not used to int erpret this result as normal/abnormal . BACTERIA (test code = Negative Negative 7010860295) MUCOUS (test code = Slight Negative LPF A 9463293646) HYAL CAST (test code = See_Comment H [Aut omated message] 0899343403) The system [employer] generated this result transmitted ref erence range: <=2 LPF. The reference range was not used to int erpret this result as normal/abnormal . Lab Interpretation (test Abnormal code = 62566-3) [facility]-19 (ID NOW RAPID TESTING)2021-02-04 19:49:28 Test Item Value Reference Range Interpretation Comments SARS-CoV-2 Rapid ID NOW Positive Not Detected A (test code = 36742-9) DANIEL (test code = DANIEL) ID NOW COVID-19 Assay is an isothermal nucleic acid amplification test intended for the qualitative detection of nucleic acid from SARS-CoV-2 viral RNA in nasopharyngeal (YARROW GATHERER) specimens. It is used under Emergency Use [...] indicated. Lab Interpretation Abnormal (test code = 46459-8) [facility]-19 (ID NOW RAPID TESTING)2021-02-04 19:49:28 Test Item Value Reference Range Interpretation Comments SARS-CoV-2 Rapid ID NOW Positive Not Detected A (test code = 82898-7) DANIEL (test code = DANIEL) ID NOW COVID-19 Assay is an isothermal nucleic acid amplification test intended for the qualitative detection of nucleic acid from SARS-CoV-2 viral RNA in nasopharyngeal (YARROW GATHERER) specimens. It is used under Emergency Use [...] indicated. Lab Interpretation Abnormal (test code = 34922-9) [facility] WITH [id number] 19:40:04 Test Item Value Reference Range Interpretation Comments WBC (test code = See_Comment [Automated 4947-2) message] The sy stem which generated this result transmitted reference range : 4.20 - 10.70 10*3/?L. The reference range was not used to interpret this result as normal/abnormal . RBC (test code = See_Comment [Automated 649-8) message] The sy stem which generated this [...] RDW-SD (test code = 45.6 fL 38.5-51.6 46369-1) RDW-CV (test code = 14.1 % 12.1-15.4 788-0) PLT (test code = See_Comment [Automated 216-3) message] The sy stem which generated this result transmitted reference range : 150 - 328 10*3/ ?L. The reference r shayna was not used to interpret this result as normal/abnormal . MPV (test code = 10.8 fL 9.8-13.0 56486-1) NRBC/100 WBC (test See_Comment [Automat ed code = 1739042910) message] The system which generated this result transmitted reference range : 0.0 - 10.0 /100 WBCs. The refer ence range was not u sed to interpret th is result as normal/abnormal . NRBC x10^3 (test code <0.01 See_Comment [Auto mated = 8946012859) message] The s ystem which generated this result transmitted reference range : 10*3/?L. The reference range was not used to interpret this result as normal/abnormal . GRAN MAT (NEUT) % 73.3 % (test code = 770-8) IMM GRAN % (test code 0.60 % = 8753116233) LYMPH % (test code = 10.4 % 736-9) MONO % (test code = 15.2 % 5905-5) EOS % (test code = 0.1 % 713-8) BASO % (test code = 0.4 % 706-2) GRAN MAT x10^3(ANC) 6.04 10*3/uL 1.99-6.95 (test code = 8734565784) IMM GRAN x10^3 (test 0.05 10*3/uL 0.00-0.06 code = 5396963661) LYMPH x10^3 (test code 0.86 10*3/uL 1.09-3.23 L = 731-0) MONO x10^3 (test code 1.25 10*3/uL 0.36-1.02 H = 742-7) EOS x10^3 (test code = <0.03 0.06-0.53 L 711-2) BASO x10^3 (test code 0.03 10*3/uL 0.01-0.09 = 704-7) Lab Interpretation Abnormal (test code = 91861-1) [facility] WITH [id number] 19:40:04 Test Item Value Reference Range Interpretation [...] RDW-SD (test code = 45.6 fL 38.5-51.6 59049-2) RDW-CV (test code = 14.1 % 12.1-15.4 788-0) PLT (test code = See_Comment [Automated 777-3) message] The sy stem which generated this result transmitted reference range : 150 - 328 10*3/ ?L. The reference r shayna was not used to interpret this result as normal/abnormal . MPV (test code = 10.8 fL 9.8-13.0 09790-0) NRBC/100 WBC (test See_Comment [Automat ed code = 1499857755) message] The system which generated this result transmitted reference range : 0.0 - 10.0 /100 WBCs. The refer ence range was not u sed to interpret th is result as normal/abnormal . NRBC x10^3 (test code <0.01 See_Comment [Auto mated = 0586505391) message] The s ystem which generated this result transmitted reference range : 10*3/?L. The reference range was not used to interpret this result as normal/abnormal . GRAN MAT (NEUT) % 73.3 % (test code = 770-8) IMM GRAN % (test code 0.60 % = 2383484262) LYMPH % (test code = 10.4 % 736-9) MONO % (test code = 15.2 % 5905-5) EOS % (test code = 0.1 % 713-8) BASO % (test code = 0.4 % 706-2) GRAN MAT x10^3(ANC) 6.04 10*3/uL 1.99-6.95 (test code = 6530391727) IMM GRAN x10^3 (test 0.05 10*3/uL 0.00-0.06 code = 1717710382) LYMPH x10^3 (test code 0.86 10*3/uL 1.09-3.23 L = 731-0) MONO x10^3 (test code 1.25 10*3/uL 0.36-1.02 H = 742-7) EOS x10^3 (test code = <0.03 0.06-0.53 L 711-2) BASO x10^3 (test code 0.03 10*3/uL 0.01-0.09 = 704-7) Lab Interpretation Abnormal (test code = 11201-7) [facility], TXCARDIAC [id number] 14:46:00 Test Item Value Reference Range Interpretation Comments Troponin-I (test code no gt See_Comment [Auto mated message] The = Troponin-I) system which g enerated this result transmit danica reference range : <=0.40. The reference r shayna was not used to interpr et this result as zara l/abnormal. [facility]37[facility]52-98 08:56:00 Test Item Value Reference Range Interpretation Comments Hct (test code = Hct) 41.0 42.0-54.0 [facility] HospitalGzlwdjfCROPOKJVYL2170-23-01 08:56:00 Test Item Value Reference Range Interpretation Comments MCV (test code = MCV) 89.9 80.0-94.0 [facility] HospitalZxqttuyMCLYZXZHOQ2161-88-02 08:56:00 Test Item Value Reference Range Interpretation Comments MCH (test code = MCH) 30.3 pg 27.0-31.0 [facility] HospitalTjllhbrPXKEROFNBK3466-50-14 08:56:00 Test Item Value Reference Range Interpretation Comments MCHC (test code = MCHC) 33.7 32.0-36.0 [facility]UHFABRGIZ0557-70-44 08:56:00 Test Item Value Reference Range Interpretation Comments RDW (test code = RDW) 14.5 11.5-14.5 [facility]ennialGngycjhZQWGGPIFKW6602-23-01 08:56:00 Test Item Value Reference Range Interpretation Comments Platelet (test code = Platelet) 243 133-450 [facility]ennialOmzbcumNIZVAHQVPV4085-02-93 08:56:00 Test Item Value Reference Range Interpretation Comments MPV (test code = MPV) 8.6 7.4-10.4 [facility]ennialXcctuzqRUFGEKCVNO8209-53-37 08:56:00 Test Item Value Reference Range Interpretation Comments Segs (test code = Segs) 67.4 45.0-75.0 [facility] CentennialIhqixchEQTRALLUPO9171-17-31 08:56:00 Test Item Value Reference Range Interpretation Comments Lymphocytes (test code = Lymphocytes) 19.8 20.0-40.0 [facility]ennialMcnwqvfDAMBOHRVKM5839-34-76 08:56:00 Test Item Value Reference Range Interpretation Comments Monocytes (test code = Monocytes) 9.8 2.0-12.0 [facility] CentennialVaktdnxEODGXLNDID5265-12-66 08:56:00 Test Item Value Reference Range Interpretation Comments Eosinophils (test code = 2.0 See_Comment [A utomated message] The Eosinophils) system which ge nerated this result tra nsmitted reference range : <=4.0. The reference r shayna was not used to int erpret this result as normal/abnormal . [facility]ennialSmjhvqoMMJYPXYNLN4494-96-44 08:56:00 Test Item Value Reference Range Interpretation Comments Basophils (test code = 1.0 See_Comment [Aut omated message] The Basophils) system which ge nerated this result tra nsmitted reference range : <=1.0. The reference r shayna was not used to int erpret this result as normal/abnormal . [facility] CentennialBndizumNOSPZWMLHD9639-32-98 08:56:00 Test Item Value Reference Range Interpretation Comments Neutrophils # (test code = Neutrophils 5.1 1.5-8.1 #) [facility]ennialKnnhewyGRPUUTCCQF8295-08-13 08:56:00 Test Item Value Reference Range Interpretation Comments Lymphocytes # (test code = Lymphocytes 1.5 1.0-5.5 #) [facility]ennialBeiooqhRXZYZXCXKW5767-67-80 08:56:00 Test Item Value Reference Range Interpretation Comments Monocytes # (test code 0.7 See_Comment [Aut omated message] The = Monocytes #) system which generated this result tra nsmitted reference range : <=0.8. The reference r shayna was not used to int erpret this result as normal/abnormal . [facility] CentennialNjjgwdgTKAEPMAHMV3850-58-46 08:56:00 Test Item Value Reference Range Interpretation Comments Eosinophils # (test code 0.2 See_Comment [A utomated message] The = Eosinophils #) system whic h generated this result tra nsmitted reference range : <=0.5. The reference r shayna was not used to int erpret this result as normal/abnormal . [facility] CentennialYavswhcAEXVHRMOQN8144-86-94 08:56:00 Test Item Value Reference Range Interpretation Comments Basophils # (test code 0.1 See_Comment [Aut omated message] The = Basophils #) system which generated this result tra nsmitted reference range : <=0.2. The reference r shayna was not used to int erpret this result as normal/abnormal . [facility]GfxmekkIYHRGT4716-50-17 08:56:00 Test Item Value Reference Range Interpretation Comments CHD Risk (test code = CHD Risk) 4.74 1 4.00-7.30 [facility] [id number] 08:56:00 Test Item Value Reference Range Interpretation Comments Chol (test code = Chol) 161 [facility] HospitalVfudtdnQSFIMY0786-60-68 08:56:00 Test Item Value Reference Range Interpretation Comments Trig (test code = Trig) 109 [facility]ClkwsnlBWSNRR5628-18-13 08:56:00 Test Item Value Reference Range Interpretation Comments HDL (test code = HDL) 34 [facility] HospitalMdomcczHQAZZT6037-07-70 08:56:00 Test Item Value Reference Range Interpretation Comments LDL (Calculated) (test code = LDL 105 (Calculated)) [facility] HospitalLwsbemgHCXQPN0191-50-43 08:56:00 Test Item Value Reference Range Interpretation Comments VLDL (test code = VLDL) 22 [facility] [id number] 08:56:00 Test Item Value Reference Range Interpretation Comments Hgb A1C (test code = Hgb A1C) 8.9 [facility] HospitalCARDIAC [id number] 08:56:00 Test Item Value Reference Range Interpretation Comments Troponin-I (test code no gt See_Comment [Auto mated message] The = Troponin-I) system which g enerated this result transmit danica reference range : <=0.40. The reference r shayna was not used to interpr et this result as zara l/abnormal. [facility]2019-12-08 08:56:00 Test Item Value Reference Range Interpretation Comments Glucose Lvl (test code = Glucose Lvl) 263 70-[address] [facility]2019-12-08 08:56:00 Test Item Value Reference Range Interpretation Comments BUN (test code = BUN) 15 7-[address] [facility]2019-12-08 08:56:00 Test Item Value Reference Range Interpretation Comments Creatinine Lvl (test code = Creatinine 0.88 0.50-1.40 Lvl) [facility]2019-12-08 08:56:00 Test Item Value Reference Range Interpretation Comments Sodium Lvl (test code = Sodium Lvl) 142 135-[address] [facility]2019-12-08 08:56:00 Test Item Value Reference Range Interpretation Comments Potassium Lvl (test code = Potassium 3.7 3.5-5.1 Lvl) [facility]2019-12-08 08:56:00 Test Item Value Reference Range Interpretation Comments Chloride Lvl (test code = Chloride Lvl) 111 95-[address] [facility]2019-12-08 08:56:00 Test Item Value Reference Range Interpretation Comments CO2 (test code = CO2) 24 24-[address] [facility]2019-12-08 08:56:00 Test Item Value Reference Range Interpretation Comments Calcium Lvl (test code = Calcium Lvl) 8.4 8.5-10.[address] [facility]2019-12-08 08:56:00 Test Item Value Reference Range Interpretation Comments eGFR (test code = eGFR) [address] [facility]2019-12-08 08:56:00 Test Item Value Reference Range Interpretation Comments AGAP (test code = AGAP) 10.7 10.0-20.0 [facility] HospitalUkqqggeAULBFZHCNG1783-15-41 08:56:00 Test Item Value Reference Range Interpretation Comments WBC (test code = WBC) 7.6 3.7-10.4 [facility]UmmluljTALWJTZZTE7600-27-09 08:56:00 Test Item Value Reference Range Interpretation Comments RBC (test code = RBC) 4.56 4.70-6.10 [facility] HospitalPjxgjwxJWZJGTGNLG3912-84-91 08:56:00 Test Item Value Reference Range Interpretation Comments Hgb (test code = Hgb) 13.8 14.0-18.0 [facility]CARD[facility]AC [id number] 08:31:00 Test Item Value Reference Range Interpretation Comments Troponin-I (test code no gt See_Comment [Auto mated message] The = Troponin-I) system which g enerated this result transmit danica reference range : <=0.40. The reference r shayna was not used to interpr et this result as zara l/abnormal. [facility]2019-12-08 08:31:00 Test Item Value Reference Range Interpretation Comments Glucose Lvl (test code = Glucose Lvl) 267 70-[address] [facility]2019-12-08 08:31:00 Test Item Value Reference Range Interpretation Comments BUN (test code = BUN) 15 7-[address] [facility]2019-12-08 08:31:00 Test Item Value Reference Range Interpretation Comments Creatinine Lvl (test code = Creatinine 0.99 0.50-1.40 Lvl) [facility]2019-12-08 08:31:00 Test Item Value Reference Range Interpretation Comments Sodium Lvl (test code = Sodium Lvl) 143 135-[address] [facility]2019-12-08 08:31:00 Test Item Value Reference Range Interpretation Comments Potassium Lvl (test code = Potassium 4.1 3.5-5.1 Lvl) [facility]2019-12-08 08:31:00 Test Item Value Reference Range Interpretation Comments Chloride Lvl (test code = Chloride Lvl) 110 95-[address] [facility]2019-12-08 08:31:00 Test Item Value Reference Range Interpretation Comments CO2 (test code = CO2) 27 24-[address] [facility]2019-12-08 08:31:00 Test Item Value Reference Range Interpretation Comments Calcium Lvl (test code = Calcium Lvl) 8.9 8.5-10.[address] [facility]2019-12-08 08:31:00 Test Item Value Reference Range Interpretation Comments Total Protein (test code = Total 6.1 6.4-8.4 Protein) [facility]2019-12-08 08:31:00 Test Item Value Reference Range Interpretation Comments Albumin Lvl (test code = Albumin Lvl) 3.4 3.5-5.[address] [facility]2019-12-08 08:31:00 Test Item Value Reference Range Interpretation Comments ALT (test code = ALT) 16 See_Comment [Auto mated message] The system which ge nerated this result transmit danica reference range : <=65. The reference range was not used to interpr et this result as zara l/abnormal. [facility] HospitalCeram Hyd [id number] 08:31:00 Test Item Value Reference Range Interpretation Comments AST (test code = AST) 10 See_Comment [Auto mated message] The system which ge nerated this result transmit danica reference range : <=37. The reference range was not used to interpr et this result as zara l/abnormal. [facility] [id number] 08:31:00 Test Item Value Reference Range Interpretation Comments Alk Phos (test code = Alk Phos) 53 39-136 [facility] HospitalFixNix Inc[facility] [id number] 08:31:00 Test Item Value Reference Range Interpretation Comments Bili Total (test code = Bili Total) 0.7 0.2-1.[address] [facility]2019-12-08 08:31:00 Test Item Value Reference Range Interpretation Comments eGFR (test code = eGFR) 70 [facility] HospitalC[facility] [id number] 08:31:00 Test Item Value Reference Range Interpretation Comments AGAP (test code = AGAP) 10.1 10.0-20.0 [facility] [id number] 08:31:00 Test Item Value Reference Range Interpretation Comments B/C Ratio (test code = B/C Ratio) 15 1 6-25 [facility] HospitalC[facility] [id number] 08:31:00 Test Item Value Reference Range Interpretation Comments Globulin (test code = Globulin) 2.7 2.7-4.2 [facility] HospitalC[facility] [id number] 08:31:00 Test Item Value Reference Range Interpretation Comments A/G Ratio (test code = A/G Ratio) 1.3 1 0.7-1.6 [facility]ennialYlcebntDFTTWNWBFP8543-42-44 08:31:00 Test Item Value Reference Range Interpretation Comments Segs (test code = Segs) 67.3 45.0-75.0 [facility] CentennialLewldslGUDFMUMCWP1255-38-06 08:31:00 Test Item Value Reference Range Interpretation Comments Lymphocytes (test code = Lymphocytes) 20.3 20.0-40.0 [facility] CentennialAdrtjqvFYVIMMASTH0926-56-31 08:31:00 Test Item Value Reference Range Interpretation Comments Monocytes (test code = Monocytes) 9.1 2.0-12.0 [facility] CentennialRjlrhsaRBRILKTXFD3225-15-74 08:31:00 Test Item Value Reference Range Interpretation Comments Eosinophils (test code = 2.4 See_Comment [A utomated message] The Eosinophils) system which ge nerated this result tra nsmitted reference range : <=4.0. The reference r shayna was not used to int erpret this result as normal/abnormal . [facility] CentennialTmdsxgqLHSSJLKQRA1538-14-22 08:31:00 Test Item Value Reference Range Interpretation Comments Basophils (test code = 0.9 See_Comment [Aut omated message] The Basophils) system which ge nerated this result tra nsmitted reference range : <=1.0. The reference r shayna was not used to int erpret this result as normal/abnormal . [facility] CentennialTxwcwbgSECFXQQJHU4618-43-57 08:31:00 Test Item Value Reference Range Interpretation Comments Neutrophils # (test code = Neutrophils 5.4 1.5-8.1 #) [facility] CentennialMzakaihXFLDHWCVDJ3054-25-53 08:31:00 Test Item Value Reference Range Interpretation Comments Lymphocytes # (test code = Lymphocytes 1.6 1.0-5.5 #) [facility] CentennialSeyunheBDCDPEOSDM5406-30-07 08:31:00 Test Item Value Reference Range Interpretation Comments Monocytes # (test code 0.7 See_Comment [Aut omated message] The = Monocytes #) system which generated this result tra nsmitted reference range : <=0.8. The reference r shayna was not used to int erpret this result as normal/abnormal . [facility] CentennialVwfyescHJAMRIWTOG7721-29-59 08:31:00 Test Item Value Reference Range Interpretation Comments Eosinophils # (test code 0.2 See_Comment [A utomated message] The = Eosinophils #) system whic h generated this result tra nsmitted reference range : <=0.5. The reference r shayna was not used to int erpret this result as normal/abnormal . [facility] CentennialDakhejyPZQGCAIJMO9617-25-87 08:31:00 Test Item Value Reference Range Interpretation Comments Basophils # (test code 0.1 See_Comment [Aut omated message] The = Basophils #) system which generated this result tra nsmitted reference range : <=0.2. The reference r shayna was not used to int erpret this result as normal/abnormal . [facility] CentennialVkdnubpZYZECSDBXX0885-62-29 08:31:00 Test Item Value Reference Range Interpretation Comments WBC (test code = WBC) 8.0 3.7-10.4 [facility] CentennialWdqagskNVDNROOMZK8618-80-04 08:31:00 Test Item Value Reference Range Interpretation Comments RBC (test code = RBC) 4.65 4.70-6.10 [facility] CentennialPrnlscnTNFKPQBMRD3967-33-59 08:31:00 Test Item Value Reference Range Interpretation Comments Hgb (test code = Hgb) 14.0 14.0-18.0 [facility] CentennialYtflfhvOXVDBQZJID3668-62-52 08:31:00 Test Item Value Reference Range Interpretation Comments Hct (test code = Hct) 41.8 42.0-54.0 [facility] CentennialWkswinwFCXLHSMICG0195-04-99 08:31:00 Test Item Value Reference Range Interpretation Comments MCV (test code = MCV) 89.8 80.0-94.0 [facility] CentennialUogjmtiACHZWHLYDQ4205-50-91 08:31:00 Test Item Value Reference Range Interpretation Comments MCH (test code = MCH) 30.1 pg 27.0-31.0 [facility] CentennialOapbghhLJCDMECQXV6359-44-50 08:31:00 Test Item Value Reference Range Interpretation Comments MCHC (test code = MCHC) 33.5 32.0-36.0 [facility] CentennialHsusrcgJZMLNIWTQM6643-17-67 08:31:00 Test Item Value Reference Range Interpretation Comments RDW (test code = RDW) 14.5 11.5-14.5 [facility] CentennialFqlrqygIRSPKNESGD9443-35-31 08:31:00 Test Item Value Reference Range Interpretation Comments Platelet (test code = Platelet) 249 133-450 [facility] CentennialEssbsqkZQZFTKXXAE1898-73-37 08:31:00 Test Item Value Reference Range Interpretation Comments MPV (test code = MPV) 8.2 7.4-10.4 [facility] HospitalMoorlcvPKCRKHZEUK6794-03-90 08:31:00 Test Item Value Reference Range Interpretation Comments PTT (test code = PTT) 31.5 s 22.9-35.8 [facility] JauafahIWBHSUSYCL9038-96-77 08:31:00 Test Item Value Reference Range Interpretation Comments INR (test code = INR) 1.15 1 0.85-1.17 [facility] MyrwyzzEFCYSMJKDQ1930-74-83 08:31:00 Test Item Value Reference Range Interpretation Comments PT (test code = PT) 14.5 s 12.0-14.7 [facility] XgburguEENDCZYXFO5234-94-21 08:31:00 Test Item Value Reference Range Interpretation Comments Treponemal Ab (test code Non-Reactive = Treponemal Ab) *NA*(05/05/19 2:31 AM) [facility] AND [id number] 08:31:00 Test Item Value Reference Range Interpretation Comments UA Turbidity (test code = Clear (05/05/19 2:31 UA Turbidity) AM) [facility] AND [id number] 08:31:00 Test Item Value Reference Range Interpretation Comments UA Spec Grav (test code = UA Spec 1.006 1 Grav) [facility] AND [id number] 08:31:00 Test Item Value Reference Range Interpretation Comments UA pH (test code = UA pH) 7.0 1 5.0-8.0 [facility] AND [id number] 08:31:00 Test Item Value Reference Range Interpretation Comments UA Protein (test code = UA Negative mg/dL Protein) [facility] [id number] 08:31:00 Test Item Value Reference Range Interpretation Comments UA Ketones (test code = UA Negative mg/dL Ketones) [facility] [id number] 08:31:00 Test Item Value Reference Range Interpretation Comments UA Bili (test code = Negative *NA*(05/05/19 UA Bili) 2:31 AM) [facility] AND [id number] 08:31:00 Test Item Value Reference Range Interpretation Comments UA Blood (test code = Negative (05/05/19 2:31 UA Blood) AM) [facility] AND [id number] 08:31:00 Test Item Value Reference Range Interpretation Comments UA Nitrite (test code Negative (05/05/19 2:31 = UA Nitrite) AM) [facility] AND [id number] 08:31:00 Test Item Value Reference Range Interpretation Comments UA Leuk Est (test Negative (05/05/19 2:31 code = UA Leuk Est) AM) [facility] AND [id number] 08:31:00 Test Item Value Reference Range Interpretation Comments UA Sq Epi (test code = UA Sq Epi) None Seen [facility] AND [id number] 08:31:00 Test Item Value Reference Range Interpretation Comments UA Color (test code = UA Color) STRAW [facility] AND [id number] 08:31:00 Test Item Value Reference Range Interpretation Comments UA Glucose (test code = UA Glucose) 150 [facility] AND [id number] 08:31:00 Test Item Value Reference Range Interpretation Comments UA Urobilinogen (test code = UA <=1.0 mg/dL 0.1-1.0 Urobilinogen) [facility]
[2021-10-12] MEDS ORDERED: NA CHLORIDE 0.9% 250 ML ONE (15:39)
[2021-10-12] MEDS ORDERED: NA CHLORIDE 0.9% 100 ML IV ONE (15:39)
[2021-10-12] MEDS ORDERED: VANCOMYCIN 1 GM/VIAL ONE (15:39)
[2021-10-12] MEDS ORDERED: CEFEPIME 1 GM/VIAL ONE (15:40)
[2021-10-12] MEDS ORDERED: TETANUS & DIPHTHERIA TOX,ADULT 0.5 ML VIAL ONE (15:40)
[2021-10-12] MEDS ORDERED: NA CHLORIDE 0.9% 500 ML ONE (15:51)
[2021-10-12 16:07] LABS: Absolute Lymphocytes (CBC) 0.7 K/uL (0.7-4.9); Hematocrit 39.7 % (39.6-49.0); Lymphocytes % 6.7 % (15.3-44.8); MPV 8.4 fL (7.6-11.3); RBC Red Blood Cell Count 4.33 M/uL (4.33-5.43)
--- NOTE | 2021-10-12 16:19 | RAD REPORT ---
EXAM DESCRIPTION: RAD - Foot Left 3 View - 10/12/2021 4:07 pm CLINICAL HISTORY: PAIN COMPARISON: No comparisons FINDINGS: Heavy vascular calcifications are seen. Large plantar calcaneal spur is present. No findin g seen to indicate osteomyelitis.
[2021-10-12 16:26] LABS: Albumin 2.7 g/dL (3.4-5.0); Bilirubin Total 0.9 mg/dL (0.2-1.0); Potassium 4.1 mmol/L (3.5-5.1); Protein, Total 7.3 g/dL (6.4-8.2)
--- NOTE | 2021-10-12 17:02 | EDPHYS ---
Physician Documentation [facility] Name: Valerio France Age: 86 yrs Sex: Male : 1935 Arrival Date: 10/12/2021 Time: 14:27 Bed 23 Private MD: Rebecca Son H ED Physician Jose Rothman HPI: 10/12 15:25 This 86 yrs old Male presents to ER via Wheelchair with complaints of toe infection. pm1 15:25 The patient presents with pain, swelling. The complaints affect the left first toe and pm1 left second toe. Context: The problem was sustained at an unknown location, resulted from an unknown cause. Onset: The symptoms/episode began/occurred 1 month(s) ago. Modifying factors: The symptoms are alleviated by nothing, the symptoms are aggravated by nothing. Associated signs and symptoms: Pertinent positives: chills yesterday. Severity of symptoms: in the emergency department the symptoms are actually worse. The patient has been recently seen by a physician: the patient's primary care provider, Dr. Son with similar presenting complaints, and was sent to the [facility] Emergency Department for further evaluation. Patient seen by Dr Son for ceullitus of his left great toe and 2nd toe. Prescribed two rounds of doxycycline without improvement. Swelling worse with chills last night. Historical: - Allergies: 15:20 No Known Allergies; ld1 - PMHx: 15:20 Diabetes - NIDDM; Hypertension; multiple myleoma; TIA; ld1 - PSHx: 15:20 None; ld1 - Immunization history:: Adult Immunizations up to date, Client reports receiving the 2nd dose of the Covid vaccine. - Social history:: Smoking status: Patient denies any tobacco usage or history of. Patient/guardian denies using alcohol. ROS: 15:25 MS/extremity: Positive for pain, swelling, tenderness, of the left second toe and left pm1 first toe. 15:25 Cardiovascular: Negative for chest pain, palpitations, and edema, Respiratory: Negative for shortness of breath, cough, wheezing, and pleuritic chest pain. 15:25 Neuro: Negative for headache, weakness, numbness, tingling, and seizure. 15:25 Constitutional: Positive for chills. 15:25 All other systems are negative. Exam: 15:25 Constitutional: This is a well developed, well nourished patient who is awake, alert, pm1 and in no acute distress. Head/Face: Normocephalic, atraumatic. 15:25 Eyes: Exam is negative for acute changes, Extraocular movements: no acute changes, Conjunctiva: no acute changes, Sclera: no acute changes, icterus, is not appreciated. 15:25 ENT: Exam is negative for acute changes, Mouth: no acute changes, Lips: normal, moist, Oral mucosa: normal, pink and intact, moist. 15:25 Cardiovascular: Exam negative for acute changes, Rate: normal, Rhythm: regular, Pulses: no pulse deficits are appreciated. 15:25 Respiratory: Exam negative for acute changes, respiratory distress, shortness of breath. 15:25 Abdomen/GI: Exam negative for acute changes, Palpation: abdomen is soft and non-tender, in all quadrants. 15:25 Skin: Appearance: normal except for affected area, cellulitis, that is moderate, on the left second toe and left first toe, lesion(s), noted, and can be described as 1 cm ulceration without discharge present to dorsal aspect of left great toe. 15:25 Neuro: Exam negative for acute changes, Orientation: to person, place \\T\\ time. Motor: moves all fours, Sensation: is normal. Vital Signs: 15:19 BP 146 / 73; Pulse 89; Resp 18; Temp 98.5(O); Pulse Ox 98% on R/A; Weight 90.72 kg; ld1 Height 6 ft. 2 in. (187.96 cm); Pain 6/10; 16:11 BP 139 / 68; Pulse 82; Resp 18; Pulse Ox 96% on R/A; ld1 17:25 BP 168 / 90; Pulse 97; Resp 18; Pulse Ox 100% on R/A; ld1 18:42 BP 138 / 99; Pulse 98; Resp 18; Pulse Ox 99% on R/A; ld1 19:30 BP 131 / 80; Pulse 91; Resp 18; Temp 99.4(TE); Pulse Ox 96% on R/A; Pain 0/10; fu 15:19 Body Mass Index 25.68 (90.72 kg, 187.96 cm) ld1 MDM: 15:03 Patient medically screened. [facility] 16:34 Data reviewed: vital signs. Data interpreted: Pulse oximetry: on room air is 96 %. pm1 Interpretation: normal. Counseling: I had a detailed discussion with the patient and/or guardian regarding: the historical points, exam findings, and any diagnostic results supporting the discharge/admit diagnosis, lab results, radiology results, the need for further work-up and treatment in the hospital. 10/12 15:25 Order name: Blood Culture Adult (2) pm1 10/12 15:25 Order name: CBC with Diff; Complete Time: 16:15 pm1 10/12 15:25 Order name: Foot Left 3 View XRAY; Complete Time: 16:33 pm1 10/12 15:25 Order name: CMP; Complete Time: 16:33 pm1 10/12 15:25 Order name: COVID-19 SARS RT PCR (Document "Date of Onset" if Symptomatic); Complete pm1 Time: 18:18 10/12 15:25 Order name: IV Saline Lock; Complete Time: 15:59 pm1 Administered Medications: 16:05 Drug: Tetanus-Diphtheria Toxoid Adult 0.5 ml {[employer]: JOOR. Exp: ld1 08/07/2023. Lot #: [id number]. } Route: IM; Site: left deltoid; 16:22 Follow up: Response: No adverse reaction ld1 16:05 Drug: Cefepime 1 grams Route: IVPB; Rate: 200 ml/hr; Infused Over: 30 mins; Site: right ld1 forearm; 16:22 Follow up: Response: No adverse reaction; IV Status: Completed infusion; IV Intake: ld1 100ml 16:21 Drug: vancoMYCIN 1 grams Route: IVPB; Infused Over: 2 hrs; Site: right forearm; ld1 Disposition Summary: 10/12/21 17:02 Hospitalization Ordered Hospitalization Status: Inpatient Admission pm1 Provider: Tim Cuellar pm1 Location: Telemetry/MedSurg (Inpatient) pm1 Condition: Stable pm1 Problem: new pm1 Symptoms: have improved pm1 Bed/Room Type: Standard pm1 Room Assignment: 206(10/12/21 19:24) cg Diagnosis - Cellulitis of left lower limb pm1 Forms: - Medication Reconciliation Form pm1 - SBAR form pm1 Signatures: Dispatcher [employer] EDJose Thompson MD MD cha Garcia, Cindy RN RN cg Carlitos Meehan, LUMP ROLLER LUMP ROLLER pm1 Alda Trevizo RN RN ld1 Corrections: (The following items were deleted from the chart) 17:02 pm[address] [place] [address]
--- NOTE | 2021-10-12 17:02 | ER ---
Nurse's Notes [facility] Name: Valerio France Age: 86 yrs Sex: Male : 1935 Arrival Date: 10/12/2021 Time: 14:27 Bed 23 Private MD: Rebecca Son H Diagnosis: Cellulitis of left lower limb Presentation: 10/12 15:19 Chief complaint: Patient states: Diabetic wound to right great toe and second toe - ld1 reports wound getting "much worse" in the last 48 hours. C/O pain and swelling to left foot. Coronavirus screen: At this time, the client does not indicate any symptoms associated with coronavirus-19. Ebola Screen: No symptoms or risks identified at this time. Initial Sepsis Screen: Does the patient meet any 2 criteria? No. Patient's initial sepsis screen is negative. Does the patient have a suspected source of infection? Yes: Skin breakdown/wound. Risk Assessment: Do you want to hurt yourself or someone else? Patient reports no desire to harm self or others. Onset of symptoms was October 12, 2021. 15:19 Method Of Arrival: Wheelchair ld1 15:19 Acuity: VICTORINO 3 ld1 Triage Assessment: 15:20 General: Appears in no apparent distress. comfortable, Behavior is calm, cooperative, ld1 appropriate for age. Pain: Complains of pain in right first toe, right second toe, Right first toenail and Right second toenail Pain does not radiate. Pain currently is 9 out of 10 on a pain scale. Quality of pain is described as throbbing, Pain began gradually, Is continuous. EENT: No signs and/or symptoms were reported regarding the EENT system. Neuro: Level of Consciousness is awake, alert, obeys commands, Oriented to person, place, time, situation. Cardiovascular: Capillary refill < 3 seconds Patient's skin is warm and dry. Respiratory: Airway is patent Respiratory effort is even, unlabored. GI: Abdomen is flat, non-distended. : No signs and/or symptoms were reported regarding the genitourinary system. Derm: Wound noted right foot. Musculoskeletal: No signs and/or symptoms reported regarding the musculoskeletal system. Historical: - Allergies: 15:20 No Known Allergies; ld1 - PMHx: 15:20 Diabetes - NIDDM; Hypertension; multiple myleoma; TIA; ld1 - PSHx: 15:20 None; ld1 - Immunization history:: Adult Immunizations up to date, Client reports receiving the 2nd dose of the Covid vaccine. - Social history:: Smoking status: Patient denies any tobacco usage or history of. Patient/guardian denies using alcohol. Screenin:22 Abuse screen: Denies threats or abuse. Denies injuries from another. Nutritional ld1 screening: No deficits noted. Tuberculosis screening: No symptoms or risk factors identified. Fall Risk None identified. Assessment: 15:22 Reassessment: Patient appears in no apparent distress at this time. See triage ld1 assessment. 17:25 Reassessment: Patient appears in no apparent distress at this time. No changes from ld1 previously documented assessment. Patient and/or family updated on plan of care and expected duration. Pain level reassessed. Patient is alert, oriented x 3, equal unlabored respirations, skin warm/dry/pink. 20:02 Reassessment: No changes from previously documented assessment. Patient and/or family fu updated on plan of care and expected duration. Pain level reassessed. Patient is alert, oriented x 3, equal unlabored respirations, skin warm/dry/pink. Vital Signs: 15:19 BP 146 / 73; Pulse 89; Resp 18; Temp 98.5(O); Pulse Ox 98% on R/A; Weight 90.72 kg; ld1 Height 6 ft. 2 in. (187.96 cm); Pain 6/10; 16:11 BP 139 / 68; Pulse 82; Resp 18; Pulse Ox 96% on R/A; ld1 17:25 BP 168 / 90; Pulse 97; Resp 18; Pulse Ox 100% on R/A; ld1 18:42 BP 138 / 99; Pulse 98; Resp 18; Pulse Ox 99% on R/A; ld1 19:30 BP 131 / 80; Pulse 91; Resp 18; Temp 99.4(TE); Pulse Ox 96% on R/A; Pain 0/10; fu 15:19 Body Mass Index 25.68 (90.72 kg, 187.96 cm) ld1 ED Course: 14:27 Patient arrived in ED. am2 14:28 Rebecca Son DO is Private Physician. am2 15:01 Carlitos Meehan NP is PHCP. pm1 15:01 Jose Rothman MD is Attending Physician. pm1 15:18 Alda Trevizo, LIOR is Primary Nurse. ld1 15:20 Triage completed. ld1 15:20 Arm band placed on right wrist. ld1 15:22 Patient has correct armband on for positive identification. Placed in gown. Bed in low ld1 position. Call light in reach. Side rails up X2. environmental monitoring specialist on. Pulse ox on. NIBP on. Door closed. Noise minimized. Warm blanket given. 15:22 No provider procedures requiring assistance completed. ld1 15:59 Blood Culture Adult (2) Sent. zm 15:59 CMP Sent. zm 16:00 CBC with Diff Sent. zm 16:00 COVID-19 SARS RT PCR (Document "Date of Onset" if Symptomatic) Sent. zm 16:00 Inserted saline lock: 20 gauge in right forearm, using aseptic technique. Blood zm collected. 16:09 Foot Left 3 View XRAY In Process Unspecified. EDMS 17:01 Tim Cuellar is Hospitalizing Provider. pm1 20:03 Patient admitted, IV remains in place. fu Administered Medications: 16:05 Drug: Tetanus-Diphtheria Toxoid Adult 0.5 ml {Direct Mail Manager: [employer]. Exp: ld1 08/07/2023. Lot #: [id number]. } Route: IM; Site: left deltoid; 16:22 Follow up: Response: No adverse reaction ld1 16:05 Drug: Cefepime 1 grams Route: IVPB; Rate: 200 ml/hr; Infused Over: 30 mins; Site: right ld1 forearm; 16:22 Follow up: Response: No adverse reaction; IV Status: Completed infusion; IV Intake: ld1 100ml 16:21 Drug: vancoMYCIN 1 grams Route: IVPB; Infused Over: 2 hrs; Site: right forearm; ld1 Medication: 15:22 VIS not applicable for this client. ld1 Intake: 16:22 IV: 100ml; Total: 100ml. ld1 Outcome: 17:02 Decision to Hospitalize by Provider. pm1 20:03 Admitted to Med/surg accompanied by nurse, room 206, Report called to Sue TINAJERO fu 20:03 Condition: stable 20:03 Instructed on the need for admit, Demonstrated understanding of instructions. 20:30 Patient left the ED. fu Signatures: Dispatcher [employer] EDMS Carlitos Meehan, ALEXANDRA RETAIL [employer] MANAGER pm1 Alysia Shelton am2 Gary Boland, RN RN Alda Flores RN RN ld1 Victoria Mathews
--- NOTE | 2021-10-12 18:00 | P.HP ---
Certification for Inpatient Patient admitted to: Inpatient With expected LOS: >2 Midnights Practitioner: I am a practitioner with admitting privileges, knowledge of patient current condition, hospital course, and medical plan of care. Services: Services provided to patient in accordance with Admission requirements found in Title 42 Section 412.3 of the Code of Federal Regulations Patient History Date of Service: 10/12/21 Reason for admission: Infected left toe wound History of Present Illness: 86-year-old gentleman with a history of coronary artery disease, history of multiple CVAs on aspirin and Plavix presented to the emergency department due to a wound on the left big toe with surrounding erythema on the dorsum of the foot which has not responded to antibiotics. His PCP referred him to the emergency department after patient did not respond to 2 rounds of oral doxycycline. Patient was seen by his home health nurse who noted increasing redness on the left foot. Patient went to see his PCP today who directed him to the emergency department for failed outpatient treatment. Blood work in the emergency department shows no leukocytosis, patient does not meet criteria for sepsis. X- ray of the foot shows no evidence of osteomyelitis. Patient is admitted for further management. Allergies No Known Allergies Allergy (Verified 05/18/16 10:07) Home Medications: Amlodipine Besylate/Benazepril [Amlodipine-Benazepril 10-40 mg] 10 mg PO BEDTIME 05/15/16 Levothyroxine Sodium 75 mcg PO DAILY 05/15/16 Metformin HCl [Glucophage] 500 mg PO DAILY 05/15/16 Sitagliptin Phosphate [Januvia*] 50 mg PO BID 05/15/16 Aspirin 81 mg PO DAILY 06/18/21 Atorvastatin Calcium [Lipitor] 80 mg PO BEDTIME 06/18/21 Clopidogrel Bisulfate [Plavix*] 75 mg PO DAILY 06/18/21 Fluoxetine HCl 10 mg PO DAILY 06/18/21 Glimepiride 2 mg PO DAILY 06/18/21 - Past Medical/Surgical History Diabetic: Yes -: myeloma -: htn -: mini strokes -: HTN -: hypothyroidism -: L knee surgery -: cataract sx - Family History Father -: GI disease, Cancer - Social History Alcohol use: No CD- Drugs: No Caffeine use: Yes Review of Systems Other: Bilateral leg swelling, worse on the left. Physical Examination - Physical Exam General: Alert, In no apparent distress, Oriented x3 HEENT: PERRLA, Mucous membr. moist/pink, Sclerae nonicteric Neck: Supple, JVD not distended Respiratory: Clear to auscultation bilaterally, Normal air movement Cardiovascular: Regular rate/rhythm, Normal S1 S2, No murmurs, Other (1+ bilateral dorsalis pedis pulse), Edema (Bilateral legs, left greater than right) Capillary refill: <2 Seconds Gastrointestinal: Soft and benign, Non-distended, No tenderness Musculoskeletal: Swelling (Bilateral legs) Integumentary: Erythema (Distal half of dorsum of left foot), Diabetic ulcer (Dorsum of the left foot) Neurological: Normal speech, Normal strength at 5/5 x4 extr, Cranial nerves 3-12 intact Lymphatics: No axilla or inguinal lymphadenopathy - Studies Laboratory Data (last 24 hrs) 10/12/21 15:50: Sodium 131 L, Potassium 4.1, BUN 28 H, Creatinine 1.47 H, Glucose 293 H, Total Bilirubin 0.9, AST 24, ALT 36, Alkaline Phosphatase 66 10/12/21 15:50: WBC 10.1, Hgb 13.4 L, Hct 39.7, Plt Count 181 Assessment and Plan - Problems (Diagnosis) (1) Diabetic foot ulcer Current Visit: Yes Status: Acute (2) Cellulitis of foot Current Visit: Yes Status: Acute (3) Peripheral edema Current Visit: Yes Status: Acute (4) Diabetes mellitus Current Visit: No Status: Acute (5) Hypertension Current Visit: No Status: Acute - Plan Admitted to the medical floor. Start IV cefepime and vancomycin. Patient with good dorsalis pedis pulse. Continue home dose aspirin and Plavix. Consult to general surgery. IV Lasix x2 doses for peripheral edema. Patient advised to keep his legs elevated. Insulin sliding scale for glucose management. Follow blood cultures obtained in the ED. Reconcile and continue other home medications. - Advance Directives Does patient have a Living Will: Yes Does patient have a Durable POA for Healthcare: Yes
[2021-10-12] MEDS ORDERED: ACETAMINOPHEN 500 MG TAB PO PRN (19:12)
[2021-10-12] MEDS ORDERED: VANCOMYCIN 1 GM in NA CHLORIDE 0.9% 250 ML IVPB SCH (19:12)
[2021-10-12] MEDS ORDERED: VANCOMYCIN 500 MG in NA CHLORIDE 0.9% 100 ML IVPB ONE (20:30)
[2021-10-12] MEDS: INSULIN -REGULAR HUMAN 50 UNIT/0.5 ML ML SQ SCH (21:53)
[2021-10-13] MEDS: HEPARIN 5000 UNIT/ML 1 ML VIAL SQ SCH ×3 (00:42→16:19)
[2021-10-13 04:19] LABS: Absolute Lymphocytes (CBC) 1.1 K/uL (0.7-4.9); Hematocrit 36.4 % (39.6-49.0); MPV 8.6 fL (7.6-11.3); RBC Red Blood Cell Count 4.04 M/uL (4.33-5.43)
[2021-10-13 04:32] LABS: Magnesium 1.7 mg/dL (1.8-2.4); Phosphorus 2.3 mg/dL (2.5-4.9); Potassium 4.1 mmol/L (3.5-5.1); Thyroid Stimulating Hormone 0.774 uIU/mL (0.360-3.740)
[2021-10-13 04:51] LABS: Blood Morphology Comment NOT SEEN (NOT SEEN); Platelet Estimate ADEQ
[2021-10-13] MEDS ORDERED: MAGNESIUM SULFATE 1 gm IVPB 1 GM/100 ML BAG IV ONE (05:01)
[2021-10-13 05:59] LABS: Urine Appearance Clear (Clear); Urine Bilirubin Negative (Negative); Urine Blood Negative (Negative); Urine Color Yellow (Yellow); Urine Glucose 2+ (Negative); Urine Protein Trace (Negative); Urine Urobilinogen 0.2 mg/dL (0.2-1.0)
[2021-10-13] MEDS ORDERED: POTASS/SODIUM PHOSPHATE 1 PKT POWD.PACK PO ONE ×3 (06:00→08:00)
[2021-10-13 06:05] LABS: Urine Microscopic Reflex ORDER UMIC
[2021-10-13 06:10] LABS: Urine Bacteria <20 /HPF (NONE SEEN); Urine RBC NONE SEEN /HPF (NONE SEEN)
--- NOTE | 2021-10-13 08:48 | P.CNS ---
Date of Consult: 10/13/21 Reason for consult: Infection left great toe History of present illness: Patient is a 86-year-old gentleman with cellulitis of the left foot who was being treated with oral antibiotics as outpatient. Patient failed outpatient oral antibiotic therapy. Patient referred to the emergency room for admission for IV antibiotics and further evaluation. Patient states that he has had this ulcer on top of his left great toe for some time now. States that it became red and warm within the last week. Patient was treated with doxycycline without resolution. Patient had an x-ray done in the emergency room which did not show any evidence of osteomyelitis. Patient is on Plavix and aspirin. Review of systems: Otherwise unremarkable Past medical history:Multiple myeloma, hypertension, hypothyroidism Past surgical history: Left knee surgery, cataract surgery Allergies: None Social history: Patient does not smoke or drink Family history: Father with GI disease cancer of unknown type Vital signs: Stable, afebrile Physical exam: Awake alert oriented x3 Head and neck exam: Cranial nerves II through XII grossly within normal limits, no neck, masses no JVD, throat clear, neck supple Chest: Clear Heart: S1-S2 Abdomen: Soft Extremity: Diminished dorsalis pedis and posterior tibial pulses. Left great toe has approximately a 1.5 cm dry gangrenous necrosis eschar on the dorsum with surrounding erythema and warmth extending to the forefoot. Neuro: Nonfocal Diagnostic data: Laboratory data reviewedWhite count is within normal limits, slight renal insufficiency. X-ray of the foot does not show any evidence of osteomyelitis. Assessment: Left great toe diabetic ulcergrade 5 with cellulitis and peripheral vascular disease. Plan/recommendation: We will get an MRI of the left great toe to rule out osteomyelitis as patient has failed outpatient antibiotic therapy. We will also get arterial Doppler on both legs to assess his vascular status. Following which we will make further recommendations. Collagenase to the dry gangrenous eschar for now. Patient does not need acute surgical intervention at this time for this dry eschar. After discharge, patient can be followed in my wound healing clinic. CC:
[2021-10-13] MEDS: CEFEPIME 1 GM in NA CHLORIDE 0.9% 100 ML IV SCH ×2 (09:48→20:20)
[2021-10-13] MEDS: CLOPIDOGREL 75 MG TABLET PO SCH (09:50)
[2021-10-13] MEDS: FUROSEMIDE 40 MG/4 ML VIAL IV SCH ×2 (09:50→16:19)
[2021-10-13] MEDS: ASPIRIN 81 MG CHEWABLE TABLET PO SCH (09:50)
[2021-10-13] MEDS: INSULIN -REGULAR HUMAN 50 UNIT/0.5 ML ML SQ SCH ×4 (10:10→20:20)
--- NOTE | 2021-10-13 11:52 | RAD REPORT ---
EXAM DESCRIPTION: MRI - Foot Left Wo Cont - 10/13/2021 11:21 am CLINICAL HISTORY: Foot pain and swelling COMPARISON: October 12, 2021 x-ray TECHNIQUE: Axial, sagittal and coronal magnetic resonance imaging left foot FINDINGS: Some of the images are degraded by motion artifact. Abnormal signal involves mid and distal aspect of the first proximal phalanx as well as the first dis heber phalanx compatible with osteomyelitis. Horizontal area of abnormal signal within the distal aspect of the second proximal phalanx probably a nondisplaced fracture. No soft tissue abscess noted IMPRESSION: Osteomyelitis first proximal and distal phalanges Nondisplaced fracture suspected second proximal phalanx
[2021-10-13] MEDS: COLLAGENASE 30 GM OINTMENT TOP SCH (12:56)
[2021-10-13] MEDS: VANCOMYCIN 1.5 GM in NA CHLORIDE 0.9% 500 ML IVPB SCH (12:57)
--- NOTE | 2021-10-13 17:42 | P.PN ---
Subjective Date of Service: 10/13/21 Chief Complaint: Infected left toe wound Patient denies any complaint except intermittent pain in the left great toe. No recorded fever Physical Examination - Vital Signs Temperature: 98.4 F Blood Pressure: 148/70 Pulse: 84 Respirations: 22 Pulse Ox (%): 97 - Physical Exam General: Alert, In no apparent distress, Oriented x3, Obese HEENT: Mucous membr. moist/pink Neck: JVD not distended Respiratory: Clear to auscultation bilaterally, Normal air movement Cardiovascular: Regular rate/rhythm, Normal S1 S2, No murmurs, Edema (Bilateral lower extremity edema significantly improved) Gastrointestinal: Soft and benign, Non-distended Musculoskeletal: Swelling (Left great toe) Integumentary: Erythema (Left foot erythema has improved, malodorous ulcer with scap-dorsum of left great toe with surrounding erythema.) Neurological: Normal strength at 5/5 x4 extr Assessment And Plan - Current Problems (Diagnosis) (1) Diabetic foot ulcer Current Visit: Yes Status: Acute (2) Cellulitis of foot Current Visit: Yes Status: Acute (3) Peripheral edema Current Visit: Yes Status: Acute (4) Diabetes mellitus Current Visit: No Status: Acute (5) Hypertension Current Visit: No Status: Acute - Plan Continue IV cefepime and vancomycin. Patient with good dorsalis pedis pulse. Patient seen by general surgery-Dr. Bhagat MRI of the foot performed which shows osteomyelitis of the left first proximal and distal phalanges. Patient will need 6 weeks of IV antibiotics. Surgical debridement per Dr. Bhagat. Obtain deep tissue wound culture. Consult infectious disease. Patient advised to keep his legs elevated. Insulin sliding scale for glucose management. Blood cultures: No growth to date.
[2021-10-13] MEDS ORDERED: DICYCLOMINE HCL 10 MG CAP PO PRN (17:43)
--- NOTE | 2021-10-13 17:49 | RAD REPORT ---
EXAM DESCRIPTION: US - Lower Extremity Arterial Bilat - 10/13/2021 5:14 pm CLINICAL HISTORY: blockage COMPARISON: Abdomen Pelvis W Contrast dated 08/08/2020 FINDINGS: Color Doppler, grayscale, and spectral analysis was performed. Biphasic flow in the right common femoral artery, superficial femoral artery, and popliteal artery. M onophasic flow in the posterior tibial artery. Monophasic flow is also present within the dorsalis pe dis artery. Elevated peak systolic velocity in the left common femoral artery with max PSV of 323 cm/second. The left SFA and popliteal arteries have biphasic flow. Monophasic flow is present within the posterior t ibial and dorsalis pedis arteries. IMPRESSION: 1. Left lower extremity: High-grade stenosis in the left common femoral artery. Monophas ic flow is also present within the posterior tibial and dorsalis pedis arteries suggesting at least m oderate stenoses. 2. Right lower extremity: Monophasic flow within the posterior tibial and dorsalis pedis arteries con sistent with at least moderate stenoses. No other hemodynamically significant stenosis is seen.
[2021-10-13 20:15] VITALS: BMI 25.3
[2021-10-13] MEDS: AMLODIPINE 10 MG TAB PO SCH (20:18)
[2021-10-13] MEDS: BENAZEPRIL 20 MG TAB PO SCH (20:18)
[2021-10-13] MEDS: INSULIN GLARGINE 100 UNIT/ML SQ SCH (20:21)
[2021-10-13] MEDS: ATORVASTATIN 80 MG TAB PO SCH (20:57)
[2021-10-13] MEDS ORDERED: VANCOMYCIN 1.5 GM in NA CHLORIDE 0.9% 500 ML IVPB SCH (21:00)
[2021-10-14] MEDS: LEVOTHYROXINE SOD 0.075 MG TAB PO SCH (05:37)
[2021-10-14 06:13] LABS: Absolute Lymphocytes (CBC) 1.1 K/uL (0.7-4.9); MPV 8.5 fL (7.6-11.3)
[2021-10-14 06:31] LABS: Potassium 3.4 mmol/L (3.5-5.1)
[2021-10-14 07:12] LABS: Phosphorus 3.1 mg/dL (2.5-4.9)
[2021-10-14] MEDS: CLOPIDOGREL 75 MG TABLET PO SCH (08:50)
[2021-10-14] MEDS: FLUOXETINE 10 MG CAP PO SCH (08:50)
[2021-10-14] MEDS: CEFEPIME 1 GM in NA CHLORIDE 0.9% 100 ML IV SCH ×2 (08:50→21:18)
[2021-10-14] MEDS: ASPIRIN 81 MG CHEWABLE TABLET PO SCH (08:50)
[2021-10-14] MEDS: HEPARIN 5000 UNIT/ML 1 ML VIAL SQ SCH ×3 (08:50→17:07)
[2021-10-14] MEDS: COLLAGENASE 30 GM OINTMENT TOP SCH (08:51)
[2021-10-14] MEDS: INSULIN -REGULAR HUMAN 50 UNIT/0.5 ML ML SQ SCH ×4 (08:58→21:17)
[2021-10-14] MEDS ORDERED: POTASSIUM CL SA 10 MEQ TAB PO ONE (09:00)
--- NOTE | 2021-10-14 09:37 | P.PN ---
Date of Service: 10/14/21 Subjective: Patient is awake and alert with no pain. Patient is working with PT to ambulate. Objective: Vital signs stable, afebrile MRI shows osteomyelitis in the left first toe, fracture of the second left toe Arterial Doppler shows significant peripheral vascular disease with stenosis of the left femoral artery Laboratory data reviewed Left forefoot and first and second toe still with erythema warmth and edema with no significant change on the gangrenous necrosis of the left first toe Assessment: Left great toe osteomyelitis with severe peripheral vascular disease Plan: PICC line, consult cardiology for peripheral vascular disease, 6 weeks IV antibioticsvancomycin. Plan of care discussed with Dr. Cuellar. Discharge planning. CC:
--- NOTE | 2021-10-14 10:46 | P.CNS ---
Date of Consult: 10/14/21 Chief Complaint: Infected left toe wound History of Present Illness: The patient is an 86-year-old male with a past medical history of coronary artery disease with multiple CVAs who presented to the emergency department secondary to worsening left great toe infection. Patient is slightly altered at bedside, states he does not know what is going on, however was able to state his name and where he is. Per chart review, patient failed outpatient treatment with doxycycline. He was instructed to come to the ED by his primary care provider. In ED initial x-ray was negative for acute fracture/osteomyelitis. MRI performed on showed osteomyelitis of the distal and proximal phalanx of the left great hallux. General surgery consulted, recommending applying Santyl. Patient will need 6 weeks of IV antibiotics. No culture available, as such we will need to treat empirically. Recommend continuing with IV vancomycin IV cefepime. Patient is also diabetic, hyperglycemic POC glucose testing. Hemoglobin A1c pending. He remains afebrile with no leukocytosis. Currently denies nausea/vomiting/diarrhea/shortness of breath/chest pain/pain to left great toe. Allergies No Known Allergies Allergy (Verified 05/18/16 10:07) Home Medications: Amlodipine Besylate/Benazepril [Amlodipine-Benazepril 10-40 mg] 10 mg PO BEDTIME 05/15/16 Levothyroxine Sodium 75 mcg PO [id number] 05/15/16 Metformin HCl [Glucophage] 500 mg PO BID 05/15/16 Aspirin 81 mg PO DAILY 06/18/21 Atorvastatin Calcium [Lipitor] 80 mg PO BEDTIME 06/18/21 Fluoxetine HCl 10 mg PO DAILY 06/18/21 Glimepiride 2 mg PO BID 06/18/21 Dicyclomine [Bentyl] 10 mg PO BID PRN 10/13/21 Diphenoxylate HCl/Atropine [Diphenoxylate-Atrop 2.5-0.025] 1 tab PO Q6HP PRN 10/13/21 - Past Medical/Surgical History Diabetic: Yes -: myeloma -: htn -: mini strokes -: HTN -: hypothyroidism -: L knee surgery -: cataract sx - Family History Father Medical History: GI disease, Cancer - Social History Smoking Status: Former smoker Alcohol use: No CD- Drugs: No Caffeine use: Yes Review of Systems is unable to be obtained Physical Examination Temp Pulse Resp BP Pulse Ox 98.3 F 80 28 H 132/65 97 10/14/21 08:00 10/14/21 08:00 10/14/21 08:00 10/14/21 08:00 10/14/21 08:00 General: Oriented x3 HEENT: Atraumatic Neck: 2+ carotid pulse no bruit Respiratory: Clear to auscultation bilaterally, Normal air movement Cardiovascular: Regular rate/rhythm Gastrointestinal: Normal bowel sounds, Soft and benign Integumentary: Other (Left great hallux ulceration) Conclusions/Impression: Antibiotics: Vancomycin: 10/13current Cefepime: 10/13current Assessment/plan Left great hallux osteomyelitis MRI performed on 10/13 confirmed osteomyelitis Patient seen by surgery, currently recommending wound care with Emeyl. No surgical intervention at this time Patient will need 6 weeks of IV antibiotics. No cultures available, will as such we will need to treat empirically. Recommend treating for 6 weeks with IV vancomycin and IV cefepime. Vancomycin trough goal of 12-17 Patient will need weekly labs including: Vancomycin trough CBC, and CMP Recommend patient be transferred to [facility] for continuation of antibiotics and wound care Peripheral vascular disease Arterial Doppler performed on 10/13 demonstrated moderate stenosis Patient could benefit from vascular intervention Diabetes [id number] glucose shows hyperglycemia Hemoglobin A1c pending Plan of care discussed with Dr. Gabriel Thank you for consultation
--- NOTE | 2021-10-14 12:47 | P.PN ---
Subjective Date of Service: 10/14/21 Chief Complaint: Infected left toe wound Patient has no complaint. He denies any pain at the moment. No recorded fever. Physical Examination - Vital Signs Temperature: 98.3 F Blood Pressure: 132/65 Pulse: 80 Respirations: 28 Pulse Ox (%): 97 - Physical Exam General: In no apparent distress, Oriented x2 HEENT: Mucous membr. moist/pink Neck: JVD not distended Respiratory: Clear to auscultation bilaterally, Normal air movement Cardiovascular: No edema (Bipedal edema resolved), Regular rate/rhythm, Normal S1 S2 Gastrointestinal: Normal bowel sounds, Soft and benign, Non-distended, No tenderness Musculoskeletal: No swelling, No tenderness, Other (Malodorous ulcer on the dorsum of the left great toe with eschar.) Integumentary: Erythema (Erythema of the left foot is significantly improved) Neurological: Normal strength at 5/5 x4 extr Assessment And Plan - Current Problems (Diagnosis) (1) Diabetic foot ulcer Current Visit: Yes Status: Acute (2) Cellulitis of foot Current Visit: Yes Status: Acute (3) Peripheral edema Current Visit: Yes Status: Acute (4) Diabetes mellitus Current Visit: No Status: Acute (5) Hypertension Current Visit: No Status: Acute (6) Acute osteomyelitis of phalanx of foot Current Visit: Yes Status: Acute - Plan Continue IV cefepime and vancomycin. Patient with palpable dorsalis pedis pulse. Vascular ultrasound shows high- grade stenosis in the left femoral artery, moderate stenosis in the tibial and dorsalis pedis. Patient seen by general surgery-Dr. Bhagat MRI of the foot performed which shows osteomyelitis of the left first proximal and distal phalanges. Patient will need 6 weeks of IV antibiotics. Infectious disease input appreciated. Place PICC line for outpatient IV antibiotics. LTAC versus home health for IV antibiotic. Dr. Bhagat recommend chemical debridement with Santyl. Patient advised to keep his legs elevated. Lasix as needed Insulin sliding scale for glucose management. Blood cultures: No growth to date.
[2021-10-14] MEDS: VANCOMYCIN 1.5 GM in NA CHLORIDE 0.9% 500 ML IVPB SCH (14:08)
--- NOTE | 2021-10-14 14:45 | RAD REPORT ---
EXAM DESCRIPTION: RAD - Chest Single View - 10/14/2021 2:26 pm CLINICAL HISTORY: PICC line placement COMPARISON: Chest Single View dated 06/17/2021; Chest Single View dated 10/13/2020; Chest Single View dated 05/04/2019; Chest Single View dated 05/19/2016 FINDINGS: Portable chest was obtained following placement of a right upper extremity PICC line. The catheter tip projects over the SVC.
[2021-10-14] MEDS: INSULIN GLARGINE 100 UNIT/ML SQ SCH (21:18)
[2021-10-14] MEDS: BENAZEPRIL 20 MG TAB PO SCH (21:19)
[2021-10-14] MEDS: ATORVASTATIN 80 MG TAB PO SCH (21:19)
[2021-10-14] MEDS: AMLODIPINE 10 MG TAB PO SCH (21:19)
--- NOTE | 2021-10-14 21:30 | CON ---
Date of Consultation: 10/14/2021 Reason For Consultation: Significant peripheral vascular disease. History Of Present Illness: An 86-year-old male with history of coronary artery disease, CVA, hypert ension, dyslipidemia, who has been having a problem with his left big toe, is being affected and caus ed cellulitis, was admitted. Had a vascular study done showed significant left femoral artery stenos is. Hence, I was consulted. The patient was seen by bedside, completely comfortable. No symptoms. Past Medical History: As outlined above in the HPI. Medications: Refer to reconciliation sheet for detailed list. Allergies: NO KNOWN DRUG ALLERGIES. Family History: No premature coronary artery disease. Has history of cancer on the father's side, G I cancer. Social History: He does not smoke or drink. Does not use any drugs. Review of Systems: All systems reviewed and were negative except as mentioned in HPI. Physical Examination: Vital Signs: Reviewed. Head and Neck: Pupils are equal, reactive to light. Intact eye movements. No JVD. No cervical lym phadenopathy. Neck: Supple. Thyroid is not enlarged. Lungs: Clear to auscultation bilaterally. No rhonchi, rales, or crackles. No accessory muscle use. Heart: Regular rate and rhythm. No extra sounds. Abdomen: Soft, nontender. Bowel sounds positive. No organomegaly. Extremities: No clubbing or cyanosis. Skin: No rash noted. Neurologic: Alert, awake, oriented x3. No acute focal deficits appreciated. Investigations: Labs were reviewed. The arterial Doppler of lower extremity showed significant left femoral artery stenosis and diffuse PAD. Assessment And Recommendations: 1.Severe peripheral vascular disease. Definitely, the patient will benefit from peripheral angiogra m and intervention of the left femoral artery, should improve the perfusion to help for wound healing . However, I would recommend to keep the patient on IV antibiotics for the next few days and revisit for possible angiogram and intervention next week. I agree with aspirin and Plavix. 2.History of coronary artery disease. No chest pain. Monitor. Thank you for the consult. /GARRET Voice ID: [id number] Report ID: [id number]
[2021-10-14 23:53] VITALS: O2SAT 97
[2021-10-15] MEDS: HEPARIN 5000 UNIT/ML 1 ML VIAL SQ SCH ×3 (00:44→17:00)
[2021-10-15] MEDS: LEVOTHYROXINE SOD 0.075 MG TAB PO SCH (05:32)
[2021-10-15 06:48] LABS: Absolute Lymphocytes (CBC) 1.2 K/uL (0.7-4.9); Lymphocytes % 17.7 % (15.3-44.8); MPV 8.3 fL (7.6-11.3); RBC Red Blood Cell Count 3.92 M/uL (4.33-5.43)
[2021-10-15 06:57] LABS: Potassium 3.8 mmol/L (3.5-5.1)
[2021-10-15] MEDS ORDERED: POTASSIUM CL SA 10 MEQ TAB PO ONE (09:00)
[2021-10-15] MEDS: CEFEPIME 1 GM in NA CHLORIDE 0.9% 100 ML IV SCH (09:05)
[2021-10-15] MEDS: ASPIRIN 81 MG CHEWABLE TABLET PO SCH (09:05)
[2021-10-15] MEDS: CLOPIDOGREL 75 MG TABLET PO SCH (09:05)
[2021-10-15 09:08] VITALS: BP 138/65
[2021-10-15] MEDS: INSULIN -REGULAR HUMAN 50 UNIT/0.5 ML ML SQ SCH ×3 (09:10→17:01)
[2021-10-15] MEDS: FLUOXETINE 10 MG CAP PO SCH (09:10)
[2021-10-15] MEDS: COLLAGENASE 30 GM OINTMENT TOP SCH (09:11)
--- NOTE | 2021-10-15 13:16 | P.PN ---
Subjective Date of Service: 10/15/21 Chief Complaint: Infected left toe wound Patient seen and examined at bedside, doing well with no acute complaints. Granddaughter was at bedside, all questions answered. Patient had right arm PICC line placed. Area is clean dry and intact with no clinical signs of infection. Review of Systems 10-point ROS is otherwise unremarkable Physical Examination - Vital Signs Temperature: 97.0 F Blood Pressure: 138/65 Pulse: 73 Respirations: 16 Pulse Ox (%): 98 - Studies Laboratory Last Values WBC 10.1 K/uL (4.3-10.9) 10/12/21 15:50 RBC 4.33 M/uL (4.33-5.43) 10/12/21 15:50 Hgb 13.4 g/dL (13.6-17.9) L 10/12/21 15:50 Hct 39.7 % (39.6-49.0) 10/12/21 15:50 MCV 91.5 fL (80-100) 10/12/21 15:50 MCH 31.0 pg (27.0-35.0) 10/12/21 15:50 MCHC 33.9 g/dL (32.0-36.0) 10/12/21 15:50 RDW 15.0 % (12.1-15.2) 10/12/21 15:50 Plt Count 181 K/uL (152-406) 10/12/21 15:50 MPV 8.4 fL (7.6-11.3) 10/12/21 15:50 Neutrophils % 80.9 % (41.7-73.7) H 10/12/21 15:50 Lymphocytes % 6.7 % (15.3-44.8) L 10/12/21 15:50 Monocytes % 11.3 % (3.3-12.3) 10/12/21 15:50 Eosinophils % 0.6 % (0-4.4) 10/12/21 15:50 Basophils % 0.5 % (0-1.3) 10/12/21 15:50 Absolute Neutrophils 8.2 K/uL (1.8-8.0) H 10/12/21 15:50 Absolute Lymphocytes 0.7 K/uL (0.7-4.9) 10/12/21 15:50 Absolute Monocytes 1.1 K/uL (0.1-1.3) 10/12/21 15:50 Absolute Eosinophils 0.1 K/uL (0-0.5) 10/12/21 15:50 Absolute Basophils 0.1 K/uL (0-0.5) 10/12/21 15:50 Sodium 131 mmol/L (136-145) L 10/12/21 15:50 Potassium 4.1 mmol/L (3.5-5.1) 10/12/21 15:50 Chloride 99 mmol/L (98-107) 10/12/21 15:50 Carbon Dioxide 23 mmol/L (21-32) 10/12/21 15:50 Anion Gap 13.1 mEq/L (5.0-15.0) 10/12/21 15:50 BUN 28 mg/dL (7-18) H 10/12/21 15:50 Creatinine 1.47 mg/dL (0.55-1.3) H 10/12/21 15:50 Est GFR (CKD-EPI) 46 ml/min (=/>90) L 10/12/21 15:50 Glucose 293 mg/dL (74-106) H 10/12/21 15:50 Calcium 8.9 mg/dL (8.5-10.1) 10/12/21 15:50 Total Bilirubin 0.9 mg/dL (0.2-1.0) 10/12/21 15:50 AST 24 U/L (15-37) 10/12/21 15:50 ALT 36 U/L (12-78) 10/12/21 15:50 Alkaline Phosphatase 66 U/L (45-117) 10/12/21 15:50 Serum Total Protein 7.3 g/dL (6.4-8.2) 10/12/21 15:50 Albumin 2.7 g/dL (3.4-5.0) L 10/12/21 15:50 Globulin 4.6 g/dL (2.3-3.5) H 10/12/21 15:50 Albumin/Globulin Ratio 0.6 (1.1-1.8) L 10/12/21 15:50 SARS-CoV-2 Rap RNA(RT-PCR) Negative (NEGATIVE) 10/12/21 15:55 Assessment And Plan - Plan Physical Exam: General: Oriented x3 HEENT: Atraumatic Neck: 2+ carotid pulse no bruit Respiratory: Clear to auscultation bilaterally, Normal air movement Cardiovascular: Regular rate/rhythm Gastrointestinal: Normal bowel sounds, Soft and benign Integumentary: Other (Left great hallux ulceration) Conclusions/Impression: Antibiotics: Vancomycin: 10/13current Cefepime: 10/13current Assessment/plan Left great hallux osteomyelitis MRI performed on 10/13 confirmed osteomyelitis Patient seen by surgery, currently recommending wound care with Santyl. No surgical intervention at this time secondary to severe PAD Patient will need 6 weeks of IV antibiotics. No cultures available, will as such we will need to treat empirically. Recommend treating for 6 weeks with IV vancomycin and IV cefepime. Vancomycin AUC/CHANDLER ratio goal of 400-600. Patient currently is at that level, recommend discharging on current dosage. Patient will need weekly labs including: Vancomycin trough, CBC, and CMP Peripheral vascular disease Arterial Doppler performed on 10/13 demonstrated moderate stenosis Patient could benefit from vascular intervention Diabetes [id number] glucose shows hyperglycemia Hemoglobin A1c 10.0%. Strict glucose monitoring needed for adequate infection control/wound healing Plan of care discussed with Dr. Gabriel Thank you for consultation
[2021-10-15 17:48] VITALS: TEMP 97.6
--- NOTE | 2021-10-15 19:23 | P.DS ---
Admission Date: 10/12/21 Discharge Date: 10/15/21 Disposition: [facility] Discharge Condition: FAIR Reason for Admission: Infected left toe wound - Problems (1) Diabetic foot ulcer Current Visit: Yes Status: Acute (2) Cellulitis of foot Current Visit: Yes Status: Acute (3) Peripheral edema Current Visit: Yes Status: Acute (4) Diabetes mellitus Current Visit: No Status: Acute (5) Hypertension Current Visit: No Status: Acute (6) Acute osteomyelitis of phalanx of foot Current Visit: Yes Status: Acute Brief History of Present Illness: 86-year-old gentleman with a history of coronary artery disease, history of multiple CVAs on aspirin and Plavix presented to the emergency department due to a wound on the left big toe with surrounding erythema on the dorsum of the foot which has not responded to antibiotics. His PCP referred him to the emergency department after patient did not respond to 2 rounds of oral doxycycline. Patient was seen by his home health nurse who noted increasing redness on the left foot. Patient went to see his PCP today who directed him to the emergency department for failed outpatient treatment. Blood work in the emergency department shows no leukocytosis, patient does not meet criteria for sepsis. X- ray of the foot shows no evidence of osteomyelitis. Patient was admitted for further management. Hospital Course: Patient admitted to the medical floor and started on IV vancomycin and cefepime. He was seen in consultation by general surgery-Dr. Bhagat who recommended MRI of the foot to assess for osteomyelitis, and arterial Doppler of the lower extremities to assess for peripheral vascular disease. MRI of the foot showed osteomyelitis of the left first proximal and distal phalanx. Arterial Doppler demonstrated moderate stenosis in the left tibial and dorsalis pedis arteries. Infectious disease consulted to assist with management. Recommendations were to treat the wound infection and osteomyelitis with 6 weeks of antibiotics. PICC line placed for outpatient antibiotic therapy. Dr. Mtz also recommended chemical debridement with Santyl. He had bilateral pedal edema which resolved with Lasix. Blood cultures yielded no growth, patient with no leukocytosis or fever. He is deemed clinically stable for discharge. He will follow with Dr. Bhagat at the wound care clinic. He is also prescribed vancomycin and Levaquin. Vital Signs/Physical Exam: Temp Pulse Resp BP Pulse Ox 97.6 F 60 16 138/65 99 10/15/21 16:00 10/15/21 16:00 10/15/21 16:00 10/15/21 13:19 10/15/21 16:00 General: Alert, In no apparent distress, Oriented x3 HEENT: Mucous membr. moist/pink Neck: Supple, JVD not distended Respiratory: Clear to auscultation bilaterally, Normal air movement Cardiovascular: No edema, Regular rate/rhythm, Normal S1 S2 Gastrointestinal: Soft and benign, Non-distended Integumentary: Other (Ulcer on the dorsum of the left great toe) Neurological: Normal speech, Normal strength at 5/5 x4 extr Laboratory Data at Discharge: WBC 6.9 K/uL (4.3-10.9) D 10/15/21 06:30 Hgb 11.9 g/dL (13.6-17.9) L 10/15/21 06:30 Hct 36.0 % (39.6-49.0) L 10/15/21 06:30 Plt Count 165 K/uL (152-406) 10/15/21 06:30 Sodium 136 mmol/L (136-145) 10/15/21 06:30 Potassium 3.8 mmol/L (3.5-5.1) 10/15/21 06:30 BUN 25 mg/dL (7-18) H 10/15/21 06:30 Creatinine 1.21 mg/dL (0.55-1.3) 10/15/21 06:30 Glucose 217 mg/dL (74-106) H 10/15/21 06:30 Phosphorus 3.1 mg/dL (2.5-4.9) 10/14/21 05:35 Magnesium 2.0 mg/dL (1.8-2.4) 10/14/21 05:35 Total Bilirubin 0.9 mg/dL (0.2-1.0) 10/12/21 15:50 AST 24 U/L (15-37) 10/12/21 15:50 ALT 36 U/L (12-78) 10/12/21 15:50 Alkaline Phosphatase 66 U/L (45-117) 10/12/21 15:50 Triglycerides 47 mg/dL (<150) 10/13/21 03:27 Cholesterol 89 mg/dL (<200) 10/13/21 03:27 HDL Cholesterol 42 mg/dL (40-60) 10/13/21 03:27 Cholesterol/HDL Ratio 2.12 10/13/21 03:27 Home Medications: Amlodipine Besylate/Benazepril [Amlodipine-Benazepril 10-40 mg] 10 mg PO BEDTIME 05/15/16 Levothyroxine Sodium 75 mcg PO [id number] 05/15/16 Metformin HCl [Glucophage] 500 mg PO BID 05/15/16 Aspirin 81 mg PO DAILY 06/18/21 Atorvastatin Calcium [Lipitor] 80 mg PO BEDTIME 06/18/21 Fluoxetine HCl 10 mg PO DAILY 06/18/21 Dicyclomine [Bentyl*] 10 mg PO BID PRN 10/13/21 Diphenoxylate HCl/Atropine [Diphenoxylate-Atrop 2.5-0.025] 1 tab PO Q6HP PRN 10/13/21 Clopidogrel Bisulfate [Plavix*] 75 mg PO DAILY #30 tablet 10/15/21 Collagenase [Santyl Ointment*] 1 appl TOP DAILY #1 tube 10/15/21 Lactobacillus Acidophilus [Acidophilus Lactobacilli] 1 each PO BID #60 capsule 10/15/21 levoFLOXacin [Levaquin] 750 mg PO DAILY #42 tab 10/15/21 New Medications: Lactobacillus Acidophilus [Acidophilus Lactobacilli] 1 each PO BID #60 capsule levoFLOXacin [Levaquin] 750 mg PO DAILY #42 tab Clopidogrel Bisulfate [Plavix*] 75 mg PO DAILY #30 tablet Collagenase [Santyl Ointment*] 1 appl TOP DAILY #1 tube Diet: ADA Activity: Fall precautions Followup: Rebecca Son DO, DO [Primary Care Provider] - 1-2 Weeks (call to schedule an appointment) Time spent managing pt's care (in minutes): 38
--- NOTE | 2021-10-17 15:30 | PN ---
Date of Progress Note: 10/15/2021 Mr. France was seen by Dr. Jean for coronary artery disease, CVA, hypertension, dyslipidemia, and l eft SFA stenosis. He does have cellulitis and undergoing antibiotics treatment. He is asymptomatic today. His foot looks better. He will need an abdominal angiogram with runoff as an outpatient. Hi s vital signs stable. He is in sinus rhythm. He can go home whenever it is okay with Dr. Cuellar. Lauren hammond will set him up for an outpatient peripheral angiogram in about 4 weeks. XAVI/GARRET Voice ID: [id number] Report ID: [id number]
--- NOTE | 2021-10-19 09:13 | EKG ---
Test Date: 2021-10-15 Test Time: 17:06:32 Coremaker Apprentice: LUKAS MEASUREMENT RESULTS: Intervals: Rate: 72 IN: 276 QRSD: 82 QT: 406 QTc: 444 [place]: P: 70 IN: 276 QRS: 33 T: 18 INTERPRETIVE STATEMENTS: Sinus rhythm with 1st degree AV block Otherwise normal ECG Compared to ECG 06/17/2021 14:31:00 No significant changes Electronically Signed On 10-19-21 09:08:35 CDT by Gen Porter
== END 2021-10-15 19:24 | disposition home health service (06) | DRG 300 ==
LOC: ER 14:23 → ERHOLD 17:45 → 2ND 20:02
PROVIDERS: ADMIT Internal Medicine; ATTEND Internal Medicine
PROC: 02HV33Z Insertion of Infusion Device into Superior Vena Cava, Percutaneous Approach (ICD-10-PCS; principal; 2021-10-14)
PROC: 3E04329 Introduction of Other Anti-infective into Central Vein, Percutaneous Approach (ICD-10-PCS; 2021-10-14)
DX: E11.52 Type 2 diabetes mellitus with diabetic peripheral angiopathy with gangrene (principal); I96 Gangrene, not elsewhere classified; M86.172 Other acute osteomyelitis, left ankle and foot; L03.116 Cellulitis of left lower limb; E11.69 Type 2 diabetes mellitus with other specified complication; I25.10 Atherosclerotic heart disease of native coronary artery without angina pectoris; I10 Essential (primary) hypertension; E03.9 Hypothyroidism, unspecified; E11.621 Type 2 diabetes mellitus with foot ulcer; L97.529 Non-pressure chronic ulcer of other part of left foot with unspecified severity; Z86.73 Personal history of transient ischemic attack (TIA), and cerebral infarction without residual deficits; Z79.82 Long term (current) use of aspirin; Z20.822 Contact with and (suspected) exposure to COVID-19
CPT/HCPCS: 36415; 36569; 71045; 80048; 80053; 80061; 80202; 81003; 81015; 82947; 83036; 83735; 84100; 84132; 84443; 85025; 87040; 90471; 90714; 93005; 93925; 94760; 96365; 96375; 97116; 97161; 97530; 99285; J0692; J1644; J1815; J1940; J3370; J3475; J3590; J7040; J7050; U0003

== ENCOUNTER 2021-10-15 20:46 | Emergency (ER) | payer OTHER ==
--- OUTSIDE RECORDS SUMMARY | 2021-10-15 20:49 | XMS REPORT | Clinical Summary ---
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 (Primary Dx) 02/02/2021 Telephone Lymphoma and Myeloma Alison Mcgarry Follow- up after 10/15/2020 Immunizations Name Administration Dates Next Due Influenza, [...] Vaccination (1) 1947 Results Not on fileafter 10/15/2020 Insurance Payer Benefit Plan / Subscriber ID Effective Dates Phone Addre ss Type Group AETNA MEDICARE AETNA MEDICARE [id number] 2021-Marian [address] [place] [address] Valerio France Personal/Family Self [phone] (Home) [place] [id number] Valerio France Personal/Family Self [phone] [facility] (Home) [address] [place] [address] Care Teams Entomology Teacher Relationship Specialty Start Date End Date Celine Solis MD PCP - General 07/29/[address] [place] [id number] Remignton Abraham MD PCP - External Referring 06/11/14 Remington Abraham MD PCP - External Follow Up A 06/11/14 Aditi Butts, RELAY TESTER HELPER Nurse Practitioner 08/05/[address] [place] [id number] Nancy Galaviz, RELAY TESTER HELPER Nurse Practitioner 08/05/[address] [place] [id number] Celine Solis MD Physician 08/05/[address] [place] [id number] Gloria Hernandez Hematology 8/7/19 MD Kriss [address] [address]
--- OUTSIDE RECORDS SUMMARY | 2021-10-15 20:51 | XMS REPORT | Continuity of Care Document ---
:1935 Author Organization [facility] t Address [address] [place] [address] Care Team Providers Name Role Phone [phone] Primary Care Physician Unavailable JOHN CORDOVA Attending Clinician Unavailable Julio RN, D Attending Clinician Jovita Grant NP Attending Clinician Aye LAO, S Attending Clinician Doctor Unassigned, Name Attending Clinician Unavailable Mcgarry Attending Clinician Unavailable DREAD ARIZA Attending Clinician Unavailable OBLE Attending Clinician Unavailable Jovita Franz Attending Clinician CAMILLE Attending Clinician Unavailable Lab, Fam Pob I Attending Clinician Unavailable Camille PAIDLLAP Attending Clinician Alexis MARCIAL Attending Clinician Unavailable Jovita GRANT Attending Clinician Unavailable DREAD ARIZA Admitting Clinician Unavailable Payers Payer Name Policy Type Policy Number Effective Date Expiration Date S astrid AETNA MEDICARE [id number] 2013 PPO 00:00:00 AETNA MEDICARE [id number] 2013 PPO 00:00:00 MEDICARE [id number] 2013 2013 ADVANTAGE GENERIC 00:00:00 00:00:00 Problems Condition Condition Condition Status Onset Resolution Last Treating Co mments Source Name Details Category Date Date Treatment Clinician Date TIA Diagnosis Active 2018-052019-05-10 Mem oria 07-05 22:06:00 l TIA 00:00: Vik 00 Active 05/04/2019 [facility] Drug-induc Drug-induc Disease Active M D ed [...] Mem oria 11-25 13:21:00 l STROKE 00:00: Duarte 00 Active 11/25/2013 ERNST TIRR Type II Problem Active 2019-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 22:42:21 l mellitus Type II Edna nn uncontroll diabetes ed mellitus (finding) uncontroll ed (finding) Active Problem 05/07/2019 ERNST Anderson TRANSIENT Diagnosis Active 2019-05-10 Memoria CEREBRAL 22:06:00 l ISCHEMIC Vik ATTACK, TRANSIENT UNSP CEREBRAL ISCHEMIC ATTACK, UNSP Active [facility] Diabetes Problem Resolve 2019-05-07 Me moria mellitus d 22:42:21 l (disorder) Diabetes He rmann mellitus (disorder) Resolved Problem 05/07/2019 Alexis Newman, OPIAlexander Vik Hypertensi Problem Resolve 2019-05-07 Memoria ve d 22:42:21 l disorder, Vik systemic Hypertensi arterial ve (disorder) disorder, systemic arterial (disorder) Resolved Problem 05/07/2019 Alexis Newman, SUZETTE [place]arte Transient Problem Resolve 2019-05-07 M emoria ischemic d 22:42:21 l attack Vik (disorder) Transient ischemic attack (disorder) Resolved Problem 05/07/2019 Alexis Newman, SUZETTE Duarte Allergies, Adverse Reactions, Alerts Allergy Allergy Status Severity Reaction(s) Onset Inactive Treating Comm ents Source Name Type Date Date Clinician NO KNOWN Drug Active [facility] ALLERGIE Class [facility] Family History Family Member Diagnosis Comments Start Date Stop Date Source Natural father -Genitourinary (Bladder, MD Rothman Kidney, Prostate, Testicle) Social History Social Habit Start Date Stop Date Quantity Comments Source Exposure to Yes [facility] SARS-CoV-2 [facility] (event) [facility] History of Cigar Smoker MD Rothman tobacco use Alcohol intake 2018-03-23 2018-03-23 Current MD Prisca sanchez 00:00:00 00:00:00 non-drinker of alcohol (finding) Tobacco Comment 2015-09-22 2015-09-22 quit in 1959 MD Irving gupta 00:00:00 00:00:00 Tobacco use and 2015-09-22 2015-09-22 Smokeless tobacco MD Stephan exposure 00:00:00 00:00:00 non-user Social History 2013-10-27 2013-10-27 [facility] erik 07:44:46 07:44:46 Sex Assigned At [birth year] MD Espinosa on 00:00:00 00:00:00 Smoking Status Start Date Stop Date Source Unknown if ever smoked [facility] Ex-smoker 2015-09-22 00:00:00 2015-09-22 00:00:00 MD [...] 1,200 mg at 1700, Routine ondansetron Yes [id number] 4mg Take 1 Univers (ZOFRAN 02-04 tablet by ity of [place]) 4 mg 00:00: mouth [place] disintegrat 00 every 8 Medic al ing tablet (eight) Branch hours as needed for Nausea and Vomiting (N/V). ondansetron Yes [id number] 4mg Take 1 Univers (ZOFRAN 9-09 tablet [...] n 2-09 (Same as: l 03:00: Lipitor) Duarte 00 atorvastati 2018-05 Yes 20 mg = 1 M emoria n 20 MG 2-08 tab, PO, l Oral Tablet 22:04: Bedtime, # Duarte [Lipitor] 00 30 tab, 0 Refill(s), [facility]: [id number] Metformin 2018-05 Yes 1,000 mg = Me moria hydrochlori 2-08 1 tab, PO, l de 1000 MG 22:04: BID-Meals, H ermann Oral Tablet 00 # 30 tab, 0 Refill(s), Pharmacy: [id number] canaglifloz 2018-05 Yes 100 mg = 1 Memoria in 100 MG 2-08 tab, PO, l Oral Tablet 22:04: Before Herm filemon [Invokana] 00 Breakfast, # 30 tab, 2 Refill(s), Pharmacy: [facility] #[id number] pantoprazol 2018-05 No Notes: For Memoria e [...] 2-08 25 mL, l (D50W) 05:07: Route: Duarte 00 IVP, Drug Form: INJ, Dosing Weight 86.477, kg, PRN, PRN Blood Glucose Results, Start date: 05/04/19 23:07:00 HAND FUR CLEANER, Duration: 30 day, Stop date: 06/03/19 23:06:00 HAND FUR CLEANER, 0 Glucagon 2018-05 No 1 mg, Memoria 2-08 Route: IM, l 05:07: Drug form: Vik 00 PDR/INJ, PRN, Dosing Weight 86.477, kg, PRN Blood Glucose Results, Start date: 05/04/19 23:07:00 HAND FUR CLEANER, Duration: 30 day, Stop date: 06/03/19 23:06:00 HAND FUR CLEANER, 0 Insulin 2018-05 No Notes: Memoria Lispro [...] not crush l Coated 05:00: or chew. Duarte Tablet (Same As: Ecotrin) Acetaminoph 2018-05 No [...] Memoria 2-08 microgram, l 04:15: PO, Daily, Duarte 00 0 Refill(s) Amlodipine 2018-05 Yes 1 [...] Yes take 1 (YAMILA) 4 2-22 tablet Jseús o mg tablet 00:00: every nigh n 00 Immunizations Ordered Immunization Filled Immunization Date Status Commen ts Source Name Name Influenza, 2018-02-28 Completed MD Rothman Unspecified 00:00:00 pneumococcal 2013-10-28 Completed [facility] 23-valent vaccine 01:27:00 [place]arte Vital Signs Vital Name Observation Time Observation Value Comments Source Systolic blood 2021-02-04 21:00:00 121 mm[Hg] Univer sity pressure [facility] Diastolic blood 2021-02-04 21:00:00 69 mm[Hg] [facility] Heart rate 2021-02-04 21:00:00 68 /min [facility] Respiratory rate 2021-02-04 21:00:00 20 /min [facility] Oxygen saturation in 2021-02-04 21:00:00 98 /min [facility] Arterial blood by [facility] Pulse oximetry [place] Body temperature 2021-02-04 18:30:00 36.44 Belen [facility] Body weight 2021-02-04 18:30:00 90.719 kg [facility] WEIGHT 2019-12-20 09:44:00 87.9 kg Temperature Oral (F) 2019-05-05 18:10:00 97.2 F [facility] Heart Rate 2019-05-05 18:10:00 Memorial Vik Respitory Rate 2019-05-05 18:10:00 Memori al Vik Systolic (mm Hg) 2019-05-05 18:10:00 Chema rial Vik Diastolic (mm Hg) 2019-05-05 18:10:00 Mem orial [place] Temperature Oral (F) 2019-05-05 14:15:00 97.3 F Memorial Vik Heart Rate 2019-05-05 14:15:00 [facility] Respitory Rate 2019-05-05 14:15:00 Memori al [place]arte Systolic (mm Hg) 2019-05-05 14:15:00 Chema rial Vik Diastolic (mm Hg) 2019-05-05 14:15:00 Mem orial Vik Temperature Oral (F) 2019-05-05 10:24:00 97.3 F Katherine Chery Heart Rate 2019-05-05 10:24:00 Katherine Chery Respitory Rate 2019-05-05 10:24:00 Kelly pineda Vik Systolic (mm Hg) 2019-05-05 10:24:00 Chema rial [place] Diastolic (mm Hg) 2019-05-05 10:24:00 Mem orial [place] Height 2019-05-05 04:10:00 187.96 cm [facility] Vik Weight 2019-05-05 04:10:00 [facility] Vik BMI Calculated 2019-05-05 04:10:00 Kelly Ochoa Procedures Procedure Date / Time Performed Performing Clinician Sour e URINALYSIS 2021-02-04 19:29:00 Antonia Griffiths [facility] COMP. METABOLIC PANEL 2021-02-04 19:28:00 Antonia Griffiths [facility] ([id number]) [facility] CBC WITH DIFF 2021-02-04 19:28:00 Antonia Griffiths [facility] COVID-19 (ID NOW RAPID 2021-02-04 19:28:00 Antonia Griffiths [facility] TESTING) [facility] NOTICE OF PRIVACY 2021-02-04 18:23:58 Doctor Unassigned, No [facility] PRACTICES Name [facility] CONSENT/REFUSAL FOR 2021-02-04 18:23:46 Doctor Unassigned, No [facility] DIAGNOSIS AND Name Medical [place] TREAT[facility] Plan of Care Planned Activity Planned Date Details Comments Source Future Scheduled Test 1947 00:00:00 COVID-19 Vaccination MD Rothman (1) [code = COVID-19 Vaccination (1)] Encounters Start End Encounter Admission Attending Care Care Encounter Source Date/Time Date/Time Type Type Clinicians Facility Department ID 2021-03-29 Emergency [facility] [id number] Univers 21:33:06 ity [facility] 2020-12-08 Outpatient [facility] [id number] [place] 09:50:26 ART [facility] 2020-10-03 Outpatient [facility] [id number] [place] 03:25:33 Manuela CORDOVA 2019-12-16 Outpatient MDA TARYN [id number] 07:06:56 Prisca sanchez 2021-02-04 2021-02-04 Emergency Aye [facility] [id number] Univers 13:39:00 18:19:00 Antonia Reno 350.1.13.10 i ty [facility] 4.2.7.2.686 [facility] [phone] [facility] 084 Branch 2021-02-04 2021-02-04 Orders Doctor LINH [id number] Univers 00:00:00 00:00:00 Only Unassigned, FARZANA 350.1.13.10 ity of [place] [facility] 4.2.7.2.686 Jose as [id number] [facility] 009 Branch 2020-10-13 2020-10-17 Inpatient E TO, [facility] [id number] [facility] 17:23:00 10:25:00 ANJASABINA 2020-06-04 2020-06-04 Outpatient BIGG, [facility] CAR [id number] [facility] 08:45:00 23:59:00 KATELYN 2020-01-25 2020-01-25 Telephone LINH Jennings [id number] [facility] 00:00:00 00:00:00 Ashley YANES 350.1.13.10 i ty of [facility] 4.2.7.2.686 Jose as [phone] [facility] 019 Branch 2020-01-25 2020-01-25 Telephone LINH Jennings [id number] 00:00:00 00:00:00 Ashley YANES 350.1.13.10 [place] [id number] 2020-01-24 2020-01-24 Outpatient Rosa NUR [facility] [id number] Univers 16:40:00 16:40:00 MARCELA mooney of [facility] 2020-01-24 2020-01-24 Laboratory Lab, Adc Fam Pob I [facility] [id number] Univers 14:45:15 15:30:48 Only Anene, [facility] 350.1.13.10 ity [facility] 4.2.7.2.686 Jose as Professio [phone] Me dical [address] Office [address] 2020-01-24 2020-01-24 Laboratory Lab, [facility] [id number] 14:45:15 15:30:48 Only Fam Pob I Health 350.1.13.10 Kermit 4.2.7.2.686 Professio [id number] nal [facility] Office [address] 2020-01-24 2020-01-24 Outpatient R [facility] [id number] Univers 15:15:00 15:15:00 [id number] ity [facility] 2019-12-20 2019-12-20 Outpatient MAITE MARCIAL MDA MDA [id number] 09:37:45 11:58:12 NAHID sanchez 2019-12-20 2019-12-20 Outpatient MAITE MARCIAL, MDA MDA [id number] 10:47:51 10:47:51 NAHID sanchez 2019-12-20 2019-12-20 Outpatient MAITE MARCIAL, MDA MDA [id number] 00:00:00 00:00:00 NAHID sanchez 2019-12-18 2019-12-18 Outpatient MAITE GRANT MDA MDA [id number] 09:29:08 23:59:00 TONIA sanchez 2019-12-16 2019-12-16 Outpatient MAITE GRANT MDA MDA [id number] 06:25:15 06:25:15 TONIA sanchez 2019-05-05 2019-05-05 Observatio nullFlavo [facility] [id number] Memoria 04:57:00 22:54:00 laura Chery 41 l [facility] 2019-05-04 2019-05-04 Outpatient U [facility]BL MED [id number] [facility]BL 22:57:00 22:57:00 2013-12-06 2013-12-07 Outpatient nullFlavo [facility] [id number] Memoria 18:00:00 04:59:00 rosa Chery 00 l JENISE Duarte 2013-12-06 2013-12-07 Outpt Diag nullFlavo [facility] [id number] Memoria 15:19:00 04:59:00 Services r Outpatient 00 l Imaging Vikfilemon Fayeann Results Test Description Test Time Test Comments Results Result Comments Source COMP. METABOLIC PANEL (11034) 2021-02-04 20:24:39 Test Item Value Reference Range Interpretation Comme nts NA (test code = 4492841573) 136 mmol/L 135-145 K (test code = 5725696036) 4.2 mmol/L 3.5-5.0 CL (test code = 6463344346) 102 mmol/L 98-108 CO2 TOTAL (test code = 8291217548) 21 mmol/L 23-31 L AGAP (test code = 3788287619) 2-16 BUN (test code = 6393766911) 27 mg/dL 7-23 H GLUCOSE (test code = 0661406192) 133 mg/dL 70-110 H CREATININE (test code = 1.27 mg/dL 0.60-1.25 H 1958315483) TOTAL BILI (test code = 1.6 mg/dL 0.1-1.1 H 0641715938) CALCIUM (test code = 1497762732) 9.1 mg/dL 8.6-10.6 T PROTEIN (test code = 0325661425) 6.9 g/dL 6.3-8.2 ALBUMIN (test code = 1519888691) 3.7 g/dL 3.5-5.0 ALK PHOS (test code = 3166238988) 78 U/L 34-122 ALTv (test code = 1742-6) 34 U/L 5-50 AST(SGOT) (test code = 4224574840) 43 U/L 13-40 H eGFR (test code = 1589064631) mL/min/1.73m2 DANIEL (test code = DANIEL) Association [...] tests). Lab Interpretation (test code = Abnormal 70520-4) [facility]. METABOLIC PANEL (66318)2021-02-04 20:24:39 Test Item Value Reference Range Interpretation Comments NA (test code = 136 mmol/L 135-145 5062396901) K (test code = 4.2 mmol/L 3.5-5.0 8560212288) CL (test code = 102 mmol/L 98-108 2469382578) CO2 TOTAL (test code = 21 mmol/L 23-31 L 5199331408) AGAP (test code = 2-16 5649420818) BUN (test code = 27 mg/dL 7-23 H 3969455863) GLUCOSE (test code = 133 mg/dL 70-110 H 1131282698) CREATININE (test code = 1.27 mg/dL 0.60-1.25 H 3939306381) TOTAL BILI (test code = 1.6 mg/dL 0.1-1.1 H 2473126638) CALCIUM (test code = 9.1 mg/dL 8.6-10.6 3434681809) T PROTEIN (test code = 6.9 g/dL 6.3-8.2 6005195074) ALBUMIN (test code = 3.7 g/dL 3.5-5.0 8064079096) ALK PHOS (test code = 78 U/L 34-122 8892770440) ALTv (test code = 34 U/L 5-50 1742-6) AST(SGOT) (test code = 43 U/L 13-40 H 5864833081) eGFR (test code = mL/min/1.73m2 8637564088) DANIEL (test code = DANIEL) Association of [...] tests). Lab Interpretation Abnormal (test code = 99672-7) [facility] [id number] 19:52:11 Test Item Value Reference Range Interpretation Comments APPEARANCE (test code = Clear Clear 6714471361) COLOR (test code = Yellow Yellow 2683749596) PH (test code = 4.8-8.0 1697320322) SP GRAVITY (test code = 1.003-1.030 1589330547) GLU U QUAL (test code = Normal Normal 1247822244) BLOOD (test code = Negative Negative 6101403745) KETONES (test code = Negative Negative 6751890050) PROTEIN (test code = Negative Negative 2887-8) UROBILIN (test code = Normal Normal 1163426357) BILIRUBIN (test code = Negative Negative 3282324816) NITRITE (test code = Negative Negative 4816364775) LEUK DANELLE (test code = Negative Negative 3064699196) RBC/HPF (test code = See_Comment [Autom ated message] 7677143860) The system [employer] generated this result transmitted ref erence range: 0 - 3 HP F. The reference range was not used to int erpret this result as normal/abnormal . WBC/HPF (test code = See_Comment [Autom ated message] 9429570223) The system [employer] generated this result transmitted ref erence range: 0 - 5 HP F. The reference range was not used to int erpret this result as normal/abnormal . BACTERIA (test code = Negative Negative 6593372982) MUCOUS (test code = Slight Negative LPF A 9563131812) HYAL CAST (test code = See_Comment H [Aut omated message] 3762926497) The system [employer] generated this result transmitted ref erence range: <=2 LPF. The reference range was not used to int erpret this result as normal/abnormal . Lab Interpretation (test Abnormal code = 34570-1) [facility]52[facility]11 Test Item Value Reference Range Interpretation Comments APPEARANCE (test code = Clear Clear 9479445874) COLOR (test code = Yellow Yellow 7207979851) PH (test code = 4.8-8.0 9783098037) SP GRAVITY (test code = 1.003-1.030 8219743944) GLU U QUAL (test code = Normal Normal 6809900172) BLOOD (test code = Negative Negative 2856869008) KETONES (test code = Negative Negative 4202690528) PROTEIN (test code = Negative Negative 2887-8) UROBILIN (test code = Normal Normal 8797861305) BILIRUBIN (test code = Negative Negative 2663328323) NITRITE (test code = Negative Negative 0174705228) LEUK DANELLE (test code = Negative Negative 2214185603) RBC/HPF (test code = See_Comment [Autom ated message] 0038345557) The system [employer] generated this result transmitted ref erence range: 0 - 3 HP F. The reference range was not used to int erpret this result as normal/abnormal . WBC/HPF (test code = See_Comment [Autom ated message] 4919913978) The system [employer] generated this result transmitted ref erence range: 0 - 5 HP F. The reference range was not used to int erpret this result as normal/abnormal . BACTERIA (test code = Negative Negative 7874219001) MUCOUS (test code = Slight Negative LPF A 5987184381) HYAL CAST (test code = See_Comment H [Aut omated message] 6622707375) The system [employer] generated this result transmitted ref erence range: <=2 LPF. The reference range was not used to int erpret this result as normal/abnormal . Lab Interpretation (test Abnormal code = 88714-4) [facility]-19 (ID NOW RAPID TESTING)2021-02-04 19:49:28 Test Item Value Reference Range Interpretation Comments SARS-CoV-2 Rapid ID NOW Positive Not Detected A (test code = 59651-7) DANIEL (test code = DANIEL) ID NOW COVID-19 Assay is an isothermal nucleic acid amplification test intended for the qualitative detection of nucleic acid from SARS-CoV-2 viral RNA in nasopharyngeal (RADIOLOGY INTERVENTIONAL PHYSICIAN) specimens. It is used under Emergency Use [...] indicated. Lab Interpretation Abnormal (test code = 55609-7) [facility]-19 (ID NOW RAPID TESTING)2021-02-04 19:49:28 Test Item Value Reference Range Interpretation Comments SARS-CoV-2 Rapid ID NOW Positive Not Detected A (test code = 46164-6) DANIEL (test code = DANIEL) ID NOW COVID-19 Assay is an isothermal nucleic acid amplification test intended for the qualitative detection of nucleic acid from SARS-CoV-2 viral RNA in nasopharyngeal (RADIOLOGY INTERVENTIONAL PHYSICIAN) specimens. It is used under Emergency Use [...] indicated. Lab Interpretation Abnormal (test code = 01703-7) [facility] WITH [id number] 19:40:04 Test Item Value Reference Range Interpretation Comments WBC (test code = See_Comment [Automated 8105-2) message] The sy stem which generated this result transmitted reference range : 4.20 - 10.70 10*3/?L. The reference range was not used to interpret this result as normal/abnormal . RBC (test code = See_Comment [Automated 714-8) message] The sy stem which generated this [...] RDW-SD (test code = 45.6 fL 38.5-51.6 77594-5) RDW-CV (test code = 14.1 % 12.1-15.4 788-0) PLT (test code = See_Comment [Automated 925-3) message] The sy stem which generated this result transmitted reference range : 150 - 328 10*3/ ?L. The reference r shayna was not used to interpret this result as normal/abnormal . MPV (test code = 10.8 fL 9.8-13.0 65453-9) NRBC/100 WBC (test See_Comment [Automat ed code = 1340014645) message] The system which generated this result transmitted reference range : 0.0 - 10.0 /100 WBCs. The refer ence range was not u sed to interpret th is result as normal/abnormal . NRBC x10^3 (test code <0.01 See_Comment [Auto mated = 1067222931) message] The s ystem which generated this result transmitted reference range : 10*3/?L. The reference range was not used to interpret this result as normal/abnormal . GRAN MAT (NEUT) % 73.3 % (test code = 770-8) IMM GRAN % (test code 0.60 % = 6540523569) LYMPH % (test code = 10.4 % 736-9) MONO % (test code = 15.2 % 5905-5) EOS % (test code = 0.1 % 713-8) BASO % (test code = 0.4 % 706-2) GRAN MAT x10^3(ANC) 6.04 10*3/uL 1.99-6.95 (test code = 1861023227) IMM GRAN x10^3 (test 0.05 10*3/uL 0.00-0.06 code = 0110509984) LYMPH x10^3 (test code 0.86 10*3/uL 1.09-3.23 L = 731-0) MONO x10^3 (test code 1.25 10*3/uL 0.36-1.02 H = 742-7) EOS x10^3 (test code = <0.03 0.06-0.53 L 711-2) BASO x10^3 (test code 0.03 10*3/uL 0.01-0.09 = 704-7) Lab Interpretation Abnormal (test code = 25821-3) [facility] WITH [id number] 19:40:04 Test Item Value Reference Range Interpretation [...] RDW-SD (test code = 45.6 fL 38.5-51.6 86044-0) RDW-CV (test code = 14.1 % 12.1-15.4 788-0) PLT (test code = See_Comment [Automated 777-3) message] The sy stem which generated this result transmitted reference range : 150 - 328 10*3/ ?L. The reference r shayna was not used to interpret this result as normal/abnormal . MPV (test code = 10.8 fL 9.8-13.0 33028-2) NRBC/100 WBC (test See_Comment [Automat ed code = 9328521297) message] The system which generated this result transmitted reference range : 0.0 - 10.0 /100 WBCs. The refer ence range was not u sed to interpret th is result as normal/abnormal . NRBC x10^3 (test code <0.01 See_Comment [Auto mated = 8220230125) message] The s ystem which generated this result transmitted reference range : 10*3/?L. The reference range was not used to interpret this result as normal/abnormal . GRAN MAT (NEUT) % 73.3 % (test code = 770-8) IMM GRAN % (test code 0.60 % = 0508344698) LYMPH % (test code = 10.4 % 736-9) MONO % (test code = 15.2 % 5905-5) EOS % (test code = 0.1 % 713-8) BASO % (test code = 0.4 % 706-2) GRAN MAT x10^3(ANC) 6.04 10*3/uL 1.99-6.95 (test code = 8466992126) IMM GRAN x10^3 (test 0.05 10*3/uL 0.00-0.06 code = 7701037907) LYMPH x10^3 (test code 0.86 10*3/uL 1.09-3.23 L = 731-0) MONO x10^3 (test code 1.25 10*3/uL 0.36-1.02 H = 742-7) EOS x10^3 (test code = <0.03 0.06-0.53 L 711-2) BASO x10^3 (test code 0.03 10*3/uL 0.01-0.09 = 704-7) Lab Interpretation Abnormal (test code = 89914-7) [facility] [id number] 14:46:00 Test Item Value Reference Range Interpretation Comments Troponin-I (test code no gt See_Comment [Auto mated message] The = Troponin-I) system which g enerated this result transmit danica reference range : <=0.40. The reference r shayna was not used to interpr et this result as zara l/abnormal. [facility]wyayjSZLCHOAKCW5548-47-25 08:56:00 Test Item Value Reference Range Interpretation Comments Hct (test code = Hct) 41.0 42.0-54.[address] [facility] HospitalStzarukFXKXBESSVB1253-25-81 08:56:00 Test Item Value Reference Range Interpretation Comments MCV (test code = MCV) 89.9 80.0-94.[address] [facility] HospitalVwwsnirIJFZJXEYIE7048-37-33 08:56:00 Test Item Value Reference Range Interpretation Comments MCH (test code = MCH) 30.3 pg 27.0-31.[address] [facility] HospitalDvfajpoJMTIXKOTLY0891-27-28 08:56:00 Test Item Value Reference Range Interpretation Comments MCHC (test code = MCHC) 33.7 32.0-36.0 [facility]uxxzqPHJLFIBKYG8726-06-57 08:56:00 Test Item Value Reference Range Interpretation Comments RDW (test code = RDW) 14.5 11.5-14.5 [facility]landPctimfzWZZZWSUKXD7546-36-30 08:56:00 Test Item Value Reference Range Interpretation Comments Platelet (test code = Platelet) 243 133-450 [facility]landHjokvwpJWWCMONQYX1769-34-41 08:56:00 Test Item Value Reference Range Interpretation Comments MPV (test code = MPV) 8.6 7.4-10.4 [facility]landSsesivnXNINPOYSMH8736-33-42 08:56:00 Test Item Value Reference Range Interpretation Comments Segs (test code = Segs) 67.4 45.0-75.0 [facility]landVcebpwsHEAQPBEANM1942-25-83 08:56:00 Test Item Value Reference Range Interpretation Comments Lymphocytes (test code = Lymphocytes) 19.8 20.0-40.0 [facility]landBxmvqthRIGGGUIAIC7684-07-04 08:56:00 Test Item Value Reference Range Interpretation Comments Monocytes (test code = Monocytes) 9.8 2.0-12.0 [facility]landAjcycvpGWQWMYBBMP9631-28-54 08:56:00 Test Item Value Reference Range Interpretation Comments Eosinophils (test code = 2.0 See_Comment [A utomated message] The Eosinophils) system which ge nerated this result tra nsmitted reference range : <=4.0. The reference r shayna was not used to int erpret this result as normal/abnormal . [id number] 08:56:00 Test Item Value Reference Range Interpretation Comments Basophils (test code = 1.0 See_Comment [Aut omated message] The Basophils) system which ge nerated this result tra nsmitted reference range : <=1.0. The reference r shayna was not used to int erpret this result as normal/abnormal . [facility]landZqjsichHUXDEFQWXW2276-30-33 08:56:00 Test Item Value Reference Range Interpretation Comments Neutrophils # (test code = Neutrophils 5.1 1.5-8.1 #) [id number] 08:56:00 Test Item Value Reference Range Interpretation Comments Lymphocytes # (test code = Lymphocytes 1.5 1.0-5.5 #) [facility]landJudhnbdWHWFFMGXCY1742-52-37 08:56:00 Test Item Value Reference Range Interpretation Comments Monocytes # (test code 0.7 See_Comment [Aut omated message] The = Monocytes #) system which generated this result tra nsmitted reference range : <=0.8. The reference r shayna was not used to int erpret this result as normal/abnormal . [facility]landTtxuzleSVZJPNSGIJ1689-08-85 08:56:00 Test Item Value Reference Range Interpretation Comments Eosinophils # (test code 0.2 See_Comment [A utomated message] The = Eosinophils #) system whic h generated this result tra nsmitted reference range : <=0.5. The reference r shayna was not used to int erpret this result as normal/abnormal . [facility]landSsloswiZUQHRKTWPH7638-81-85 08:56:00 Test Item Value Reference Range Interpretation Comments Basophils # (test code 0.1 See_Comment [Aut omated message] The = Basophils #) system which generated this result tra nsmitted reference range : <=0.2. The reference r shayna was not used to int erpret this result as normal/abnormal . [facility]ZlvligyECGQAI2727-89-54 08:56:00 Test Item Value Reference Range Interpretation Comments CHD Risk (test code = CHD Risk) 4.74 1 4.00-7.30 [facility] CenterTixcyxjCEQPIC5143-56-75 08:56:00 Test Item Value Reference Range Interpretation Comments Chol (test code = Chol) 161 [facility] CenterBupdadtHWOCPO5359-69-86 08:56:00 Test Item Value Reference Range Interpretation Comments Trig (test code = Trig) 109 [facility]dsnsinPSSEIL6086-[facility]58 08:56:00 Test Item Value Reference Range Interpretation Comments HDL (test code = HDL) 34 [facility] CenterEaskzbiFAYOLJ8870-56-95 08:56:00 Test Item Value Reference Range Interpretation Comments LDL (Calculated) (test code = LDL 105 (Calculated)) [facility] CenterTarbvlwGTEHSO3946-45-39 08:56:00 Test Item Value Reference Range Interpretation Comments VLDL (test code = VLDL) 22 [facility] [id number] 08:56:00 Test Item Value Reference Range Interpretation Comments Hgb A1C (test code = Hgb A1C) 8.9 [facility] CenterCARDIAC [id number] 08:56:00 Test Item Value Reference Range Interpretation Comments Troponin-I (test code no gt See_Comment [Auto mated message] The = Troponin-I) system which g enerated this result transmit danica reference range : <=0.40. The reference r shayna was not used to interpr et this result as zara l/abnormal. [facility]2019-12-08 08:56:00 Test Item Value Reference Range Interpretation Comments Glucose Lvl (test code = Glucose Lvl) 263 70-99 [facility]2019-12-08 08:56:00 Test Item Value Reference Range Interpretation Comments BUN (test code = BUN) 15 7-22 [facility]2019-12-08 08:56:00 Test Item Value Reference Range Interpretation Comments Creatinine Lvl (test code = Creatinine 0.88 0.50-1.40 Lvl) [facility]2019-12-08 08:56:00 Test Item Value Reference Range Interpretation Comments Sodium Lvl (test code = Sodium Lvl) 142 135-145 [facility]2019-12-08 08:56:00 Test Item Value Reference Range Interpretation Comments Potassium Lvl (test code = Potassium 3.7 3.5-5.1 Lvl) [facility]2019-12-08 08:56:00 Test Item Value Reference Range Interpretation Comments Chloride Lvl (test code = Chloride Lvl) 111 95-109 [facility]2019-12-08 08:56:00 Test Item Value Reference Range Interpretation Comments CO2 (test code = CO2) 24 24-32 [facility]2019-12-08 08:56:00 Test Item Value Reference Range Interpretation Comments Calcium Lvl (test code = Calcium Lvl) 8.4 8.5-10.5 [facility]2019-12-08 08:56:00 Test Item Value Reference Range Interpretation Comments eGFR (test code = eGFR) 79 [facility]2019-12-08 08:56:00 Test Item Value Reference Range Interpretation Comments AGAP (test code = AGAP) 10.7 10.0-20.0 [facility] CenterNcztopxARRFTTTUAN7850-02-17 08:56:00 Test Item Value Reference Range Interpretation Comments WBC (test code = WBC) 7.6 3.7-10.[address] [facility]MuwnuiwNQOAVDVWIF0867-88-06 08:56:00 Test Item Value Reference Range Interpretation Comments RBC (test code = RBC) 4.56 4.70-6.[address] [facility] HospitalUqcqxfxYZZNSQSMSB3910-16-06 08:56:00 Test Item Value Reference Range Interpretation Comments Hgb (test code = Hgb) 13.8 14.0-18.0 [facility] CenterCARD[facility]AC [id number] 08:31:00 Test Item Value Reference Range Interpretation Comments Troponin-I (test code no gt See_Comment [Auto mated message] The = Troponin-I) system which g enerated this result transmit danica reference range : <=0.40. The reference r shayna was not used to interpr et this result as zara l/abnormal. [facility]2019-12-08 08:31:00 Test Item Value Reference Range Interpretation Comments Glucose Lvl (test code = Glucose Lvl) 267 70-99 [facility]2019-12-08 08:31:00 Test Item Value Reference Range Interpretation Comments BUN (test code = BUN) 15 7-22 [facility]2019-12-08 08:31:00 Test Item Value Reference Range Interpretation Comments Creatinine Lvl (test code = Creatinine 0.99 0.50-1.40 Lvl) [facility]2019-12-08 08:31:00 Test Item Value Reference Range Interpretation Comments Sodium Lvl (test code = Sodium Lvl) 143 135-145 [facility]2019-12-08 08:31:00 Test Item Value Reference Range Interpretation Comments Potassium Lvl (test code = Potassium 4.1 3.5-5.1 Lvl) [facility]2019-12-08 08:31:00 Test Item Value Reference Range Interpretation Comments Chloride Lvl (test code = Chloride Lvl) 110 95-109 [facility]2019-12-08 08:31:00 Test Item Value Reference Range Interpretation Comments CO2 (test code = CO2) 27 24-32 [facility]2019-12-08 08:31:00 Test Item Value Reference Range Interpretation Comments Calcium Lvl (test code = Calcium Lvl) 8.9 8.5-10.5 [facility]2019-12-08 08:31:00 Test Item Value Reference Range Interpretation Comments Total Protein (test code = Total 6.1 6.4-8.4 Protein) [facility]2019-12-08 08:31:00 Test Item Value Reference Range Interpretation Comments Albumin Lvl (test code = Albumin Lvl) 3.4 3.5-5.0 [facility]2019-12-08 08:31:00 Test Item Value Reference Range Interpretation Comments ALT (test code = ALT) 16 See_Comment [Auto mated message] The system which ge nerated this result transmit danica reference range : <=65. The reference range was not used to interpr et this result as zara l/abnormal. [facility] CenterSatomi [id number] 08:31:00 Test Item Value Reference Range Interpretation Comments AST (test code = AST) 10 See_Comment [Auto mated message] The system which ge nerated this result transmit danica reference range : <=37. The reference range was not used to interpr et this result as zara l/abnormal. [facility] CenterSatomi [id number] 08:31:00 Test Item Value Reference Range Interpretation Comments Alk Phos (test code = Alk Phos) 53 39-136 [facility] [id number] 08:31:00 Test Item Value Reference Range Interpretation Comments Bili Total (test code = Bili Total) 0.7 0.2-1.3 [facility]2019-12-08 08:31:00 Test Item Value Reference Range Interpretation Comments eGFR (test code = eGFR) 70 [facility] CenterS[facility]i [id number] 08:31:00 Test Item Value Reference Range Interpretation Comments AGAP (test code = AGAP) 10.1 10.0-20.0 [facility] [id number] 08:31:00 Test Item Value Reference Range Interpretation Comments B/C Ratio (test code = B/C Ratio) 15 1 6-25 [facility] [id number] 08:31:00 Test Item Value Reference Range Interpretation Comments Globulin (test code = Globulin) 2.7 2.7-4.2 [facility] [id number] 08:31:00 Test Item Value Reference Range Interpretation Comments A/G Ratio (test code = A/G Ratio) 1.3 1 0.7-1.6 [facility]landRckbypcTWFXWAYTLD0766-10-75 08:31:00 Test Item Value Reference Range Interpretation Comments Segs (test code = Segs) 67.3 45.0-75.0 [facility]landYmjnjsgKOKUVRRHDZ7457-55-06 08:31:00 Test Item Value Reference Range Interpretation Comments Lymphocytes (test code = Lymphocytes) 20.3 20.0-40.0 [facility]landIjzndpwEETSYYZVEU3445-32-17 08:31:00 Test Item Value Reference Range Interpretation Comments Monocytes (test code = Monocytes) 9.1 2.0-12.0 [facility]landMconhfjCCTGZMKKRA0679-25-48 08:31:00 Test Item Value Reference Range Interpretation Comments Eosinophils (test code = 2.4 See_Comment [A utomated message] The Eosinophils) system which ge nerated this result tra nsmitted reference range : <=4.0. The reference r shayna was not used to int erpret this result as normal/abnormal . [facility]landJdpbcrfBNIHKNWYHQ7750-14-83 08:31:00 Test Item Value Reference Range Interpretation Comments Basophils (test code = 0.9 See_Comment [Aut omated message] The Basophils) system which ge nerated this result tra nsmitted reference range : <=1.0. The reference r shayna was not used to int erpret this result as normal/abnormal . [facility]landLvjfxiuYVXXBYYWLH6740-54-09 08:31:00 Test Item Value Reference Range Interpretation Comments Neutrophils # (test code = Neutrophils 5.4 1.5-8.1 #) [facility]landYlqdfckWNCEGILVOQ3720-23-82 08:31:00 Test Item Value Reference Range Interpretation Comments Lymphocytes # (test code = Lymphocytes 1.6 1.0-5.5 #) [facility]landIaircqvXTCDQEITCE9706-30-80 08:31:00 Test Item Value Reference Range Interpretation Comments Monocytes # (test code 0.7 See_Comment [Aut omated message] The = Monocytes #) system which generated this result tra nsmitted reference range : <=0.8. The reference r shayna was not used to int erpret this result as normal/abnormal . [facility]landLjjtkxgJIXASECFBD8872-22-33 08:31:00 Test Item Value Reference Range Interpretation Comments Eosinophils # (test code 0.2 See_Comment [A utomated message] The = Eosinophils #) system whic h generated this result tra nsmitted reference range : <=0.5. The reference r shayna was not used to int erpret this result as normal/abnormal . [facility]landCijnhxoCRVWTFCNQR0882-61-38 08:31:00 Test Item Value Reference Range Interpretation Comments Basophils # (test code 0.1 See_Comment [Aut omated message] The = Basophils #) system which generated this result tra nsmitted reference range : <=0.2. The reference r shayna was not used to int erpret this result as normal/abnormal . [facility]landIwkhrluUWHGSKVDUL1084-27-10 08:31:00 Test Item Value Reference Range Interpretation Comments WBC (test code = WBC) 8.0 3.7-10.4 [facility]landHplrjbpEYFFBMVOHU9685-48-00 08:31:00 Test Item Value Reference Range Interpretation Comments RBC (test code = RBC) 4.65 4.70-6.10 [facility]landKueqailDVWTEKWMNJ1742-60-40 08:31:00 Test Item Value Reference Range Interpretation Comments Hgb (test code = Hgb) 14.0 14.0-18.0 [facility]landGkbqairGYQQGQDGZX3192-15-83 08:31:00 Test Item Value Reference Range Interpretation Comments Hct (test code = Hct) 41.8 42.0-54.0 [facility]landVswuqfzEKANDYKFPT8604-01-05 08:31:00 Test Item Value Reference Range Interpretation Comments MCV (test code = MCV) 89.8 80.0-94.0 [facility]landSyvkbjtGWBXCGIHPE8969-79-29 08:31:00 Test Item Value Reference Range Interpretation Comments MCH (test code = MCH) 30.1 pg 27.0-31.0 [facility]landAwfgictVHPDZTVJRB3438-51-07 08:31:00 Test Item Value Reference Range Interpretation Comments MCHC (test code = MCHC) 33.5 32.0-36.0 [facility]landVgqiudoTXIRRSPAZV9669-30-72 08:31:00 Test Item Value Reference Range Interpretation Comments RDW (test code = RDW) 14.5 11.5-14.5 [facility]landAnxcfibZPGCKPCJKH4870-21-65 08:31:00 Test Item Value Reference Range Interpretation Comments Platelet (test code = Platelet) 249 133-450 [facility]landZcmemaaYQISJXGFSH9259-91-86 08:31:00 Test Item Value Reference Range Interpretation Comments MPV (test code = MPV) 8.2 7.4-10.4 [facility] CenterEyypgfsVEXQHHHBWD2248-91-10 08:31:00 Test Item Value Reference Range Interpretation Comments PTT (test code = PTT) 31.5 s 22.9-35.8 [facility] OjmlfipWCULKRSNND9064-17-91 08:31:00 Test Item Value Reference Range Interpretation Comments INR (test code = INR) 1.15 1 0.85-1.17 [facility] BagzjxjBTBQWQZIJB4337-27-75 08:31:00 Test Item Value Reference Range Interpretation Comments PT (test code = PT) 14.5 s 12.0-14.7 [facility] VcrxfxkWMIYPBYVUZ1527-33-19 08:31:00 Test Item Value Reference Range Interpretation Comments Treponemal Ab (test code Non-Reactive = Treponemal Ab) *NA*(05/05/19 2:31 AM) [facility] AND [id number] 08:31:00 Test Item Value Reference Range Interpretation Comments UA Turbidity (test code = Clear (05/05/19 2:31 UA Turbidity) AM) [facility] AND [id number] 08:31:00 Test Item Value Reference Range Interpretation Comments UA Spec Grav (test code = UA Spec 1.006 1 Grav) [facility] AND [id number] 08:31:00 Test Item Value Reference Range Interpretation Comments UA pH (test code = UA pH) 7.0 1 5.0-8.0 [facility] AND [id number] 08:31:00 Test Item Value Reference Range Interpretation Comments UA Protein (test code = UA Negative mg/dL Protein) [facility] [id number] 08:31:00 Test Item Value Reference Range Interpretation Comments UA Ketones (test code = UA Negative mg/dL Ketones) [facility] [id number] 08:31:00 Test Item Value Reference Range Interpretation Comments UA Bili (test code = Negative *NA*(05/05/19 UA Bili) 2:31 AM) [facility] [id number] 08:31:00 Test Item Value Reference Range Interpretation Comments UA Blood (test code = Negative (05/05/19 2:31 UA Blood) AM) [facility] [id number] 08:31:00 Test Item Value Reference Range Interpretation Comments UA Nitrite (test code Negative (05/05/19 2:31 = UA Nitrite) AM) [facility] AND [id number] 08:31:00 Test Item Value Reference Range Interpretation Comments UA Leuk Est (test Negative (05/05/19 2:31 code = UA Leuk Est) AM) [facility] AND [id number] 08:31:00 Test Item Value Reference Range Interpretation Comments UA Sq Epi (test code = UA Sq Epi) None Seen [facility] AND [id number] 08:31:00 Test Item Value Reference Range Interpretation Comments UA Color (test code = UA Color) STRAW [facility] AND [id number] 08:31:00 Test Item Value Reference Range Interpretation Comments UA Glucose (test code = UA Glucose) 150 [facility] AND [id number] 08:31:00 Test Item Value Reference Range Interpretation Comments UA Urobilinogen (test code = UA <=1.0 mg/dL 0.1-1.0 Urobilinogen) [facility]
--- NOTE | 2021-10-15 22:04 | EDPHYS ---
Physician Documentation [facility] Name: Valerio France Age: 86 yrs Sex: Male : 1935 Arrival Date: 10/15/2021 Time: 20:49 Bed 12 Private MD: ED Physician Jose Rothman HPI: 10/15 21:58 This 86 yrs old Male presents to ER via Unassigned with complaints of PICC jennifer line bleeding. 21:58 The patient or guardian complains of BLEEDING AT PICC SITE. The complaints affect the jennifer right tricep. Context: The problem was sustained at home. Onset: The symptoms/episode began/occurred today. Treatment prior to arrival includes: no previous treatment. Modifying factors: The symptoms are alleviated by nothing. the symptoms are aggravated by movement. Associated signs and symptoms: The patient has no apparent associated signs or symptoms. The patient has not experienced similar symptoms in the past. Historical: - Allergies: 22:00 No Known Allergies; tw5 - PMHx: 22:00 Diabetes - NIDDM; Hypertension; multiple myleoma; tw5 - Immunization history:: Flu vaccine is up to date. - Social history:: Smoking status: Patient denies any tobacco usage or history of. - Family history:: not pertinent. ROS: 21:58 Constitutional: Negative for fever, chills, and weight loss, Eyes: Negative for injury, jennifer pain, redness, and discharge, ENT: Negative for injury, pain, and discharge, Neck: Negative for injury, pain, and swelling, Cardiovascular: Negative for chest pain, palpitations, and edema, Respiratory: Negative for shortness of breath, cough, wheezing, and pleuritic chest pain, Abdomen/GI: Negative for abdominal pain, nausea, vomiting, diarrhea, and constipation, Back: Negative for injury and pain, : Negative for injury, bleeding, discharge, and swelling, Skin: Negative for injury, rash, and discoloration, Neuro: Negative for headache, weakness, numbness, tingling, and seizure, Psych: Negative for depression, anxiety, suicide ideation, homicidal ideation, and hallucinations, Allergy/Immunology: Negative for hives, rash, and allergies, Endocrine: Negative for neck swelling, polydipsia, polyuria, polyphagia, and marked weight changes, Hematologic/Lymphatic: Negative for swollen nodes, abnormal bleeding, and unusual bruising. 21:58 MS/extremity: Positive for BLEEDING AT THE SITE. Exam: 21:58 Constitutional: This is a well developed, well nourished patient who is awake, alert, jennifer and in no acute distress. Head/Face: Normocephalic, atraumatic. Eyes: Pupils equal round and reactive to light, extra-ocular motions intact. Lids and lashes normal. Conjunctiva and sclera are non-icteric and not injected. Cornea within normal limits. Periorbital areas with no swelling, redness, or edema. ENT: Nares patent. No nasal discharge, no septal abnormalities noted. Tympanic membranes are normal and external auditory canals are clear. Oropharynx with no redness, swelling, or masses, exudates, or evidence of obstruction, uvula midline. Mucous membranes moist. Neck: Trachea midline, no thyromegaly or masses palpated, and no cervical lymphadenopathy. Supple, full range of motion without nuchal rigidity, or vertebral point tenderness. No Meningismus. Chest/axilla: Normal chest wall appearance and motion. Nontender with no deformity. No lesions are appreciated. Cardiovascular: Regular rate and rhythm with a normal S1 and S2. No gallops, murmurs, or rubs. Normal PMI, no JVD. No pulse deficits. Respiratory: Lungs have equal breath sounds bilaterally, clear to auscultation and percussion. No rales, rhonchi or wheezes noted. No increased work of breathing, no retractions or nasal flaring. Abdomen/GI: Soft, non-tender, with normal bowel sounds. No distension or tympany. No guarding or rebound. No evidence of tenderness throughout. Back: No spinal tenderness. No costovertebral tenderness. Full range of motion. Male : Normal genitalia with no discharge or lesions. Skin: Warm, dry with normal turgor. Normal color with no rashes, no lesions, and no evidence of cellulitis. Neuro: Awake and alert, GCS 15, oriented to person, place, time, and situation. Cranial nerves II-XII grossly intact. Motor strength 5/5 in all extremities. Sensory grossly intact. Cerebellar exam normal. Normal gait. Psych: Awake, alert, with orientation to person, place and time. Behavior, mood, and affect are within normal limits. 21:58 Musculoskeletal/extremity: ROM: full active range of motion, full passive range of motion, Circulation is intact in all extremities. Sensation intact. Compartment Syndrome exam of affected extremity: is normal. DVT Exam: no pain, no swelling, no tenderness, negative Homans' sign noted on exam, no appreciated bluish discoloration, no erythema, no increased warmth. Vital Signs: 21:49 BP 145 / 76; Pulse 74; Resp 18; Temp 97.5; Pulse Ox 99% on R/A; Weight 130.63 kg; tw5 Height 6 ft. 1 in. (185.42 cm); Pain 0/10; 21:49 Body Mass Index 38.00 (130.63 kg, 185.42 cm) tw5 MDM: 22:01 Data reviewed: vital signs, nurses notes. Data interpreted: child monitor: not jennifer applicable for this patient encounter. rate is 74 beats/min, rhythm is regular, Pulse oximetry: on room air is 99 %. Counseling: I had a detailed discussion with the patient and/or guardian regarding: the historical points, exam findings, and any diagnostic results supporting the discharge/admit diagnosis, the need for outpatient follow up, for definitive care, a family practitioner. 22:03 Patient medically screened. jennifer Administered Medications: No medications were administered Disposition Summary: 10/15/21 22:03 Discharge Ordered Location: Home jennifer Problem: new jennifer Symptoms: have improved jennifer Condition: Stable jennifer Diagnosis - Encounter for adjustment and management of vascular access device - PICC jennifer Followup: jennifer - With: Private Physician - When: 2 - 3 days - Reason: Recheck today's complaints, Continuance of care, Re-evaluation by your physician Discharge Instructions: - Discharge Summary Sheet jennifer - PICC Home Care Guide jennifer - PICC Insertion, Care After jennifer - PICC Insertion jennifer Forms: - Medication Reconciliation Form jennifer - Thank You Letter jennifer - Antibiotic Education jennifer - Prescription Opioid Use jennifer Signatures: Jose Rothman MD MD cha Wood, Tiffany tw5
--- NOTE | 2021-10-15 22:04 | ER ---
Nurse's Notes [facility] Name: Valerio France Age: 86 yrs Sex: Male : 1935 Arrival Date: 10/15/2021 Time: 20:49 Bed 12 Private MD: Diagnosis: Encounter for adjustment and management of vascular access device-PICC Presentation: 10/15 21:49 Chief complaint: Patient's son or daughter states: "We got him home from being tw5 discharge and the second we got him home his PICC line started bleeding so we came right back.". Coronavirus screen: Vaccine status: Patient reports being unvaccinated. Ebola Screen: Patient negative for fever greater than or equal to 101.5 degrees Fahrenheit, and additional compatible Ebola Virus Disease symptoms Patient denies exposure to infectious person. Patient denies travel to an Ebola-affected area in the 21 days before illness onset. Initial Sepsis Screen: Does the patient meet any 2 criteria? No. Patient's initial sepsis screen is negative. Does the patient have a suspected source of infection? No. Patient's initial sepsis screen is negative. Risk Assessment: Do you want to hurt yourself or someone else? Patient reports no desire to harm self or others. Onset of symptoms was October 15, 2021 at 19:00. 21:49 Method Of Arrival: Wheelchair tw5 21:49 Acuity: VICTORINO 4 tw5 Triage Assessment: 22:00 General: Appears in no apparent distress. Behavior is calm, cooperative, appropriate tw5 for age. Pain: Denies pain. Historical: - Allergies: 22:00 No Known Allergies; tw5 - PMHx: 22:00 Diabetes - NIDDM; Hypertension; multiple myleoma; tw5 - Immunization history:: Flu vaccine is up to date. - Social history:: Smoking status: Patient denies any tobacco usage or history of. - Family history:: not pertinent. Screenin:00 Abuse screen: Denies threats or abuse. Denies injuries from another. Nutritional tw5 screening: No deficits noted. Tuberculosis screening: No symptoms or risk factors identified. Fall Risk None identified. Assessment: 22:00 General: Appears in no apparent distress. tw5 Vital Signs: 21:49 BP 145 / 76; Pulse 74; Resp 18; Temp 97.5; Pulse Ox 99% on R/A; Weight 130.63 kg; tw5 Height 6 ft. 1 in. (185.42 cm); Pain 0/10; 21:49 Body Mass Index 38.00 (130.63 kg, 185.42 cm) tw5 ED Course: 20:49 Patient arrived in ED. jose alejandro 21:57 Jose Rothman MD is Attending Physician. jennifer 22:00 Triage completed. tw5 22:00 Arm band placed on. tw5 22:00 Patient has correct armband on for positive identification. tw5 22:00 Patient did not have IV access during this emergency room visit. Dressings: sterile tw5 dressing change of PICC line. 22:00 No provider procedures requiring assistance completed. tw5 Administered Medications: No medications were administered Medication: 22:00 VIS not applicable for this client. tw5 Outcome: 22:03 Discharge ordered by . jennifer 22:06 Discharged to home tw5 22:06 Condition: improved 22:06 Discharge instructions given to patient, Instructed on discharge instructions, follow up and referral plans. Demonstrated understanding of instructions, follow-up care, medications. 22:07 Patient left the ED. tw5 Signatures: Jose Rothman MD MD cha Wood, Tiffany tw5 Mallory Low
[2021-10-15 22:13] VITALS: BP 145/76; TEMP 97.5; O2SAT 99
== END 2021-10-15 22:07 | disposition home or self-care (01) ==
LOC: ER 20:46
DX: Z45.2 Encounter for adjustment and management of vascular access device (principal)
CPT/HCPCS: 99281

== ENCOUNTER 2021-11-12 12:28 | Observation (INO) | payer OTHER ==
--- OUTSIDE RECORDS SUMMARY | 2021-11-12 12:30 | XMS REPORT | Clinical Summary ---
:1935 Author Organization [facility] MD Arboleda [facility] Address [address] [place] [id number] Care Team Providers Name Role Phone Alexis Solis MD Primary Care Provider Robby Abraham MD Unavailable Robby Abraham MD Unavailable Jovita Butst NP Unavailable Sid Galaviz NP Unavailable Alexis Solis MD Unavailable Kriss Hernandez MD Unavailable [phone] Allergies No known active allergies Medications [...] and Myeloma Aditi Butts ltiplmanish myeloma Jovita, SPECIAL MACHINE STITCHER (Primary Dx) 02/02/2021 Telephone Lymphoma and Myeloma Alison Mcgarry Follow- up after 11/12/2020 Immunizations Name Administration Dates Next Due Influenza, [...] Date Last Done Comments COVID-19 Vaccination (1) 1940 Results Not on fileafter 11/12/2020 Insurance Payer Benefit Plan / Subscriber ID Effective Dates Phone Addre ss Type Group [employer]NA MEDICARE AETNA MEDICARE [id number] 2021-Marian [address] [place] [address] Valerio France Personal/Family Self [phone] (Home) [place] [id number] Valerio France Personal/Family Self [phone] [facility] (Home) [address] [place] [address] Care Teams Telecommunicator Relationship Specialty Start Date End Date Celine Solis MD PCP - General 07/29/[address] [place] [id number] Remington Abraham MD PCP - External Referring 06/11/14 Remington Abraham MD PCP - External Follow Up A 06/11/14 Aditi Butts, SPECIAL MACHINE STITCHER Nurse Practitioner 08/05/[address] [place] [phone] Nancy Galaviz, [employer] MACHINE STITCHER Nurse Practitioner 08/05/[address] [place] [id number] Celine Solis MD Physician 08/05/[address] [place] [id number] Gloria Hernandez Hematology 8/7/19 MD Kriss [address] [address]
--- OUTSIDE RECORDS SUMMARY | 2021-11-12 12:32 | XMS REPORT | Continuity of Care Document ---
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 0.06-0.53 L 711-2) BASO x10^3 (test code 0.03 10*3/uL 0.01-0.09 = 704-7) Lab Interpretation Abnormal (test code = 88374-7) [facility] WITH [id number] 19:40:04 Test Item Value Reference Range Interpretation [...] RDW-SD (test code = 45.6 fL 38.5-51.6 43842-0) RDW-CV (test code = 14.1 % 12.1-15.4 788-0) PLT (test code = See_Comment [Automated 777-3) message] The sy stem which generated this result transmitted reference range : 150 - 328 10*3/ ?L. The reference r shayna was not used to interpret this result as normal/abnormal . MPV (test code = 10.8 fL 9.8-13.0 99440-3) NRBC/100 WBC (test See_Comment [Automat ed code = 3057015229) message] The system which generated this result transmitted reference range : 0.0 - 10.0 /100 WBCs. The refer ence range was not u sed to interpret th is result as normal/abnormal . NRBC x10^3 (test code <0.01 See_Comment [Auto mated = 5220948411) message] The s ystem which generated this result transmitted reference range : 10*3/?L. The reference range was not used to interpret this result as normal/abnormal . GRAN MAT (NEUT) % 73.3 % (test code = 770-8) IMM GRAN % (test code 0.60 % = 0697358611) LYMPH % (test code = 10.4 % 736-9) MONO % (test code = 15.2 % 5905-5) EOS % (test code = 0.1 % 713-8) BASO % (test code = 0.4 % 706-2) GRAN MAT x10^3(ANC) 6.04 10*3/uL 1.99-6.95 (test code = 4766509354) IMM GRAN x10^3 (test 0.05 10*3/uL 0.00-0.06 code = 1822875754) LYMPH x10^3 (test code 0.86 10*3/uL 1.09-3.23 L = 731-0) MONO x10^3 (test code 1.25 10*3/uL 0.36-1.02 H = 742-7) EOS x10^3 (test code = <0.03 0.06-0.53 L 711-2) BASO x10^3 (test code 0.03 10*3/uL 0.01-0.09 = 704-7) Lab Interpretation Abnormal (test code = 54038-6) [id number] 14:46:00 Test Item Value Reference Range Interpretation Comments Troponin-I (test code no gt See_Comment [Auto mated message] The = Troponin-I) system which g enerated this result transmit danica reference range : <=0.40. The reference r shayna was not used to interpr et this result as zara l/abnormal. [facility]2019-12-08 08:56:00 Test Item Value Reference Range Interpretation Comments Chloride Lvl (test code = Chloride Lvl) 111 95-109 [facility]2019-12-08 08:56:00 Test Item Value Reference Range Interpretation Comments CO2 (test code = CO2) 24 24-32 [facility]2019-12-08 08:56:00 Test Item Value Reference Range Interpretation Comments Calcium Lvl (test code = Calcium Lvl) 8.4 8.5-10.5 [facility]2019-12-08 08:56:00 Test Item Value Reference Range Interpretation Comments eGFR (test code = eGFR) 79 [facility]2019-12-08 08:56:00 Test Item Value Reference Range Interpretation Comments AGAP (test code = AGAP) 10.7 10.0-20.0 [facility]ExuzjdoUHTXTZQRCV2678-65-49 08:56:00 Test Item Value Reference Range Interpretation Comments WBC (test code = WBC) 7.6 3.7-10.4 [facility]CqbhsnlDTTHVNGFBP0286-85-03 08:56:00 Test Item Value Reference Range Interpretation Comments RBC (test code = RBC) 4.56 4.70-6.10 [facility] HospitalMgwupdjCHKIPDEYOF3908-11-93 08:56:00 Test Item Value Reference Range Interpretation Comments Hgb (test code = Hgb) 13.8 14.0-18.0 [facility] HospitalXoykhnfUJRJXHRZAA0360-30-80 08:56:00 Test Item Value Reference Range Interpretation Comments Hct (test code = Hct) 41.0 42.0-54.0 [facility] HospitalQozqborQBOIHPNXQA2156-23-89 08:56:00 Test Item Value Reference Range Interpretation Comments MCV (test code = MCV) 89.9 80.0-94.0 [facility] HospitalGjbqbjcRITRSBYPLZ8179-13-02 08:56:00 Test Item Value Reference Range Interpretation Comments MCH (test code = MCH) 30.3 pg 27.0-31.0 [facility] HospitalPkafdwiPGWGUTJFZM6964-92-75 08:56:00 Test Item Value Reference Range Interpretation Comments MCHC (test code = MCHC) 33.7 32.0-36.0 [facility] HospitalRdjijyaYFZBVNFIOV2909-14-73 08:56:00 Test Item Value Reference Range Interpretation Comments RDW (test code = RDW) 14.5 11.5-14.5 [facility] HospitalJqyovucLJSXBGSEBE1493-40-86 08:56:00 Test Item Value Reference Range Interpretation Comments Platelet (test code = Platelet) 243 133-450 [facility] HospitalMaishbpIAFBIIGZID3730-00-96 08:56:00 Test Item Value Reference Range Interpretation Comments MPV (test code = MPV) 8.6 7.4-10.4 [facility] HospitalZmvcfrnLAYJOEUWFM7194-11-36 08:56:00 Test Item Value Reference Range Interpretation Comments Segs (test code = Segs) 67.4 45.0-75.0 [facility] HospitalLbzosmnTFRYZZNMTZ2013-58-13 08:56:00 Test Item Value Reference Range Interpretation Comments Lymphocytes (test code = Lymphocytes) 19.8 20.0-40.0 [facility] HospitalYilshkcSXEUMGBRVO5481-65-75 08:56:00 Test Item Value Reference Range Interpretation Comments Monocytes (test code = Monocytes) 9.8 2.0-12.0 [facility] HospitalLmxqyqtIHKUORBMWB6839-94-40 08:56:00 Test Item Value Reference Range Interpretation Comments Eosinophils (test code = 2.0 See_Comment [A utomated message] The Eosinophils) system which ge nerated this result tra nsmitted reference range : <=4.0. The reference r shayna was not used to int erpret this result as normal/abnormal . [facility] HospitalPqquktqYGKTOPYNUB1901-06-09 08:56:00 Test Item Value Reference Range Interpretation Comments Basophils (test code = 1.0 See_Comment [Aut omated message] The Basophils) system which ge nerated this result tra nsmitted reference range : <=1.0. The reference r shayna was not used to int erpret this result as normal/abnormal . [facility] HospitalRlptblbAVNLXVDNIC9338-24-74 08:56:00 Test Item Value Reference Range Interpretation Comments Neutrophils # (test code = Neutrophils 5.1 1.5-8.1 #) [facility] HospitalRzafqpgSRRVMGMOXO3855-69-61 08:56:00 Test Item Value Reference Range Interpretation Comments Lymphocytes # (test code = Lymphocytes 1.5 1.0-5.5 #) [facility] HospitalByizhvlEXGTFSVGUJ0669-29-00 08:56:00 Test Item Value Reference Range Interpretation Comments Monocytes # (test code 0.7 See_Comment [Aut omated message] The = Monocytes #) system which generated this result tra nsmitted reference range : <=0.8. The reference r shayna was not used to int erpret this result as normal/abnormal . [facility] HospitalOaunriiEKVYUTUCJI8936-88-37 08:56:00 Test Item Value Reference Range Interpretation Comments Eosinophils # (test code 0.2 See_Comment [A utomated message] The = Eosinophils #) system whic h generated this result tra nsmitted reference range : <=0.5. The reference r shayna was not used to int erpret this result as normal/abnormal . [facility] HospitalIrraonfVTZHCEDNAV8892-44-82 08:56:00 Test Item Value Reference Range Interpretation Comments Basophils # (test code 0.1 See_Comment [Aut omated message] The = Basophils #) system which generated this result tra nsmitted reference range : <=0.2. The reference r shayna was not used to int erpret this result as normal/abnormal . [facility]nePjeuecrIPSLBR3527-07-15 08:56:00 Test Item Value Reference Range Interpretation Comments CHD Risk (test code = CHD Risk) 4.74 1 4.00-7.30 [facility] NgmpfryGCXVIB8663-75-01 08:56:00 Test Item Value Reference Range Interpretation Comments Chol (test code = Chol) 161 [facility] Cle[facility]neKzjrxgbPYNJVX7278-22-74 08:56:00 Test Item Value Reference Range Interpretation Comments Trig (test code = Trig) 109 [facility] Cle[facility]neXftzbryZDOHNS6591-38-18 08:56:00 Test Item Value Reference Range Interpretation Comments HDL (test code = HDL) 34 [facility]neApwemnoCDVMGI1075-71-19 08:56:00 Test Item Value Reference Range Interpretation Comments LDL (Calculated) (test code = LDL 105 (Calculated)) [facility] CleburneSqarggjLSXMJZ4668-68-16 08:56:00 Test Item Value Reference Range Interpretation Comments VLDL (test code = VLDL) 22 1 [facility] YHDAQRQGH5359-74-05 08:56:00 Test Item Value Reference Range Interpretation Comments Hgb A1C (test code = Hgb A1C) 8.9 [facility] [id number] 08:56:00 Test Item Value Reference Range Interpretation Comments Troponin-I (test code no gt See_Comment [Auto mated message] The = Troponin-I) system which g enerated this result transmit danica reference range : <=0.40. The reference r shayna was not used to interpr et this result as zara l/abnormal. [facility] [employer] TEENT2937-22-03 08:56:00 Test Item Value Reference Range Interpretation Comments Glucose Lvl (test code = Glucose Lvl) 263 70-99 [facility] RDHCZ0815-68-14 08:56:00 Test Item Value Reference Range Interpretation Comments BUN (test code = BUN) 15 7-22 [facility] [employer] [id number] 08:56:00 Test Item Value Reference Range Interpretation Comments Creatinine Lvl (test code = Creatinine 0.88 0.50-1.40 Lvl) [facility] [employer] [id number] 08:56:00 Test Item Value Reference Range Interpretation Comments Sodium Lvl (test code = Sodium Lvl) 142 135-145 [facility] [employer] [id number] 08:56:00 Test Item Value Reference Range Interpretation Comments Potassium Lvl (test code = Potassium 3.7 3.5-5.1 Lvl) [facility] [id number] 08:31:00 Test Item Value Reference Range Interpretation Comments Troponin-I (test code no gt See_Comment [Auto mated message] The = Troponin-I) system which g enerated this result transmit danica reference range : <=0.40. The reference r shayna was not used to interpr et this result as zara l/abnormal. [facility] COIHT3904-03-55 08:31:00 Test Item Value Reference Range Interpretation Comments Glucose Lvl (test code = Glucose Lvl) 267 70-99 [facility] [id number] 08:31:00 Test Item Value Reference Range Interpretation Comments BUN (test code = BUN) 15 7-22 [facility]2019-12-08 08:31:00 Test Item Value Reference Range Interpretation Comments Creatinine Lvl (test code = Creatinine 0.99 0.50-1.40 Lvl) [facility] [id number] 08:31:00 Test Item Value Reference Range Interpretation Comments Sodium Lvl (test code = Sodium Lvl) 143 135-145 [facility] [id number] 08:31:00 Test Item Value Reference Range Interpretation Comments Potassium Lvl (test code = Potassium 4.1 3.5-5.1 Lvl) [facility]2019-12-08 08:31:00 Test Item Value Reference Range Interpretation Comments Chloride Lvl (test code = Chloride Lvl) 110 95-109 [facility] AXGNX4313-02-03 08:31:00 Test Item Value Reference Range Interpretation Comments CO2 (test code = CO2) 27 24-32 [facility] [id number] 08:31:00 Test Item Value Reference Range Interpretation Comments Calcium Lvl (test code = Calcium Lvl) 8.9 8.5-10.5 [facility]2019-12-08 08:31:00 Test Item Value Reference Range Interpretation Comments Total Protein (test code = Total 6.1 6.4-8.4 Protein) [facility]2019-12-08 08:31:00 Test Item Value Reference Range Interpretation Comments Albumin Lvl (test code = Albumin Lvl) 3.4 3.5-5.0 [facility]2019-12-08 08:31:00 Test Item Value Reference Range Interpretation Comments ALT (test code = ALT) 16 See_Comment [Auto mated message] The system which ge nerated this result transmit danica reference range : <=65. The reference range was not used to interpr et this result as zara l/abnormal. [facility]2019-12-08 08:31:00 Test Item Value Reference Range Interpretation Comments AST (test code = AST) 10 See_Comment [Auto mated message] The system which ge nerated this result transmit danica reference range : <=37. The reference range was not used to interpr et this result as zara l/abnormal. [facility]2019-12-08 08:31:00 Test Item Value Reference Range Interpretation Comments Alk Phos (test code = Alk Phos) 53 39-136 [facility]2019-12-08 08:31:00 Test Item Value Reference Range Interpretation Comments Bili Total (test code = Bili Total) 0.7 0.2-1.3 [facility]2019-12-08 08:31:00 Test Item Value Reference Range Interpretation Comments eGFR (test code = eGFR) 70 [facility]2019-12-08 08:31:00 Test Item Value Reference Range Interpretation Comments AGAP (test code = AGAP) 10.1 10.0-20.0 [facility]2019-12-08 08:31:00 Test Item Value Reference Range Interpretation Comments B/C Ratio (test code = B/C Ratio) 15 1 6-25 [facility]2019-12-08 08:31:00 Test Item Value Reference Range Interpretation Comments Globulin (test code = Globulin) 2.7 2.7-4.2 [facility] [id number] 08:31:00 Test Item Value Reference Range Interpretation Comments A/G Ratio (test code = A/G Ratio) 1.3 1 0.7-1.6 [facility] HospitalKlwfluwPEJSIYEYUL4483-27-20 08:31:00 Test Item Value Reference Range Interpretation Comments Segs (test code = Segs) 67.3 45.0-75.0 [place] [id number] 08:31:00 Test Item Value Reference Range Interpretation Comments Lymphocytes (test code = Lymphocytes) 20.3 20.0-40.0 [facility] HospitalMlinciaYJTRIWUUUT4410-16-92 08:31:00 Test Item Value Reference Range Interpretation Comments Monocytes (test code = Monocytes) 9.1 2.0-12.0 [facility] HospitalSexutzrPPDVKKMTPL4370-40-04 08:31:00 Test Item Value Reference Range Interpretation Comments Eosinophils (test code = 2.4 See_Comment [A utomated message] The Eosinophils) system which ge nerated this result tra nsmitted reference range : <=4.0. The reference r shayna was not used to int erpret this result as normal/abnormal . [facility] HospitalUbhdktnCFAWVJCUUD0106-97-22 08:31:00 Test Item Value Reference Range Interpretation Comments Basophils (test code = 0.9 See_Comment [Aut omated message] The Basophils) system which ge nerated this result tra nsmitted reference range : <=1.0. The reference r shayna was not used to int erpret this result as normal/abnormal . [facility] HospitalFhskdnwRQZEPSNPEN2372-61-63 08:31:00 Test Item Value Reference Range Interpretation Comments Neutrophils # (test code = Neutrophils 5.4 1.5-8.1 #) [facility] HospitalOyfulcxVZQVPNFKJC3634-45-09 08:31:00 Test Item Value Reference Range Interpretation Comments Lymphocytes # (test code = Lymphocytes 1.6 1.0-5.5 #) [facility] HospitalQkvitbpHCSNMZFMEY8989-47-68 08:31:00 Test Item Value Reference Range Interpretation Comments Monocytes # (test code 0.7 See_Comment [Aut omated message] The = Monocytes #) system which generated this result tra nsmitted reference range : <=0.8. The reference r shayna was not used to int erpret this result as normal/abnormal . [facility] HospitalSelepabXHGKSPXPIS3549-95-87 08:31:00 Test Item Value Reference Range Interpretation Comments Eosinophils # (test code 0.2 See_Comment [A utomated message] The = Eosinophils #) system whic h generated this result tra nsmitted reference range : <=0.5. The reference r shayna was not used to int erpret this result as normal/abnormal . [facility] HospitalNzimhyrKUZHBTRGLE6890-38-53 08:31:00 Test Item Value Reference Range Interpretation Comments Basophils # (test code 0.1 See_Comment [Aut omated message] The = Basophils #) system which generated this result tra nsmitted reference range : <=0.2. The reference r shayna was not used to int erpret this result as normal/abnormal . [facility] HospitalZfwrtkaSMAMJFNTEZ8886-46-04 08:31:00 Test Item Value Reference Range Interpretation Comments WBC (test code = WBC) 8.0 3.7-10.4 [facility] HospitalDjbelpfFLCEVUHVHF3044-93-54 08:31:00 Test Item Value Reference Range Interpretation Comments RBC (test code = RBC) 4.65 4.70-6.10 [facility] HospitalBktqndrQSBCJUBEBW2398-76-58 08:31:00 Test Item Value Reference Range Interpretation Comments Hgb (test code = Hgb) 14.0 14.0-18.0 [facility] HospitalVdnmkzuWSTOLYJIKT9218-63-46 08:31:00 Test Item Value Reference Range Interpretation Comments Hct (test code = Hct) 41.8 42.0-54.0 [facility] HospitalOrkivqtTTFSTMUCEZ1048-56-37 08:31:00 Test Item Value Reference Range Interpretation Comments MCV (test code = MCV) 89.8 80.0-94.0 [facility] HospitalFboxfgkBZQNFGJLRB4422-35-07 08:31:00 Test Item Value Reference Range Interpretation Comments MCH (test code = MCH) 30.1 pg 27.0-31.0 [facility] HospitalHkrfjwgJQAPOJWRKN8633-09-44 08:31:00 Test Item Value Reference Range Interpretation Comments MCHC (test code = MCHC) 33.5 32.0-36.0 [facility] HospitalTwuxskeVHMCQVSUFM1991-76-65 08:31:00 Test Item Value Reference Range Interpretation Comments RDW (test code = RDW) 14.5 11.5-14.5 [facility] HospitalZumyauiRZHAUDTBBS0022-35-75 08:31:00 Test Item Value Reference Range Interpretation Comments Platelet (test code = Platelet) 249 133-450 [facility] HospitalImiwngeLHQEPDHCZR8118-93-85 08:31:00 Test Item Value Reference Range Interpretation Comments MPV (test code = MPV) 8.2 7.4-10.4 [facility] HospitalXvkooksAYNQJKNCFG3219-14-83 08:31:00 Test Item Value Reference Range Interpretation Comments PTT (test code = PTT) 31.5 s 22.9-35.8 [facility] HpbrxioMJSMDPJHWG3397-26-48 08:31:00 Test Item Value Reference Range Interpretation Comments INR (test code = INR) 1.15 1 0.85-1.17 [facility] DswhhdbGJDTNBSNJB0010-06-94 08:31:00 Test Item Value Reference Range Interpretation Comments PT (test code = PT) 14.5 s 12.0-14.7 [facility] FdmfavcDNJUVVGHMX8508-94-77 08:31:00 Test Item Value Reference Range Interpretation Comments Treponemal Ab (test code Non-Reactive = Treponemal Ab) *NA*(05/05/19 2:31 AM) [facility] [id number] 08:31:00 Test Item Value Reference Range Interpretation Comments UA Turbidity (test code = Clear (05/05/19 2:31 UA Turbidity) AM) [facility] [id number] 08:31:00 Test Item Value Reference Range Interpretation Comments UA Spec Grav (test code = UA Spec 1.006 1 Grav) [facility] [id number] 08:31:00 Test Item Value Reference Range Interpretation Comments UA pH (test code = UA pH) 7.0 1 5.0-8.0 [facility] [id number] 08:31:00 Test Item Value Reference Range Interpretation Comments UA Protein (test code = UA Negative mg/dL Protein) [facility] [id number] 08:31:00 Test Item Value Reference Range Interpretation Comments UA Ketones (test code = UA Negative mg/dL Ketones) [facility] [id number] 08:31:00 Test Item Value Reference Range Interpretation Comments UA Bili (test code = Negative *NA*(05/05/19 UA Bili) 2:31 AM) [facility] [id number] 08:31:00 Test Item Value Reference Range Interpretation Comments UA Blood (test code = Negative (05/05/19 2:31 UA Blood) AM) [facility] [id number] 08:31:00 Test Item Value Reference Range Interpretation Comments UA Nitrite (test code Negative (05/05/19 2:31 = UA Nitrite) AM) [facility] [id number] 08:31:00 Test Item Value Reference Range Interpretation Comments UA Leuk Est (test Negative (05/05/19 2:31 code = UA Leuk Est) AM) [facility] AND [id number] 08:31:00 Test Item Value Reference Range Interpretation Comments UA Sq Epi (test code = UA Sq Epi) None Seen [facility] AND [id number] 08:31:00 Test Item Value Reference Range Interpretation Comments UA Color (test code = UA Color) STRAW [facility] AND [id number] 08:31:00 Test Item Value Reference Range Interpretation Comments UA Glucose (test code = UA Glucose) 150 [facility] AND [id number] 08:31:00 Test Item Value Reference Range Interpretation Comments UA Urobilinogen (test code = UA <=1.0 mg/dL 0.1-1.0 Urobilinogen) [facility]
--- NOTE | 2021-11-12 13:02 | RAD REPORT ---
EXAM DESCRIPTION: CT - Ct Stroke Brain Wo Cont - 11/12/2021 12:54 pm CLINICAL HISTORY: Weakness COMPARISON: Ct Stroke Brain Wo Cont dated 10/13/2020; Head Brain Wo Cont dated 08/08/2020 TECHNIQUE: All CT scans are performed using dose optimization technique as appropriate and may inclu de automated exposure control or mA/KV adjustment according to patient size. FINDINGS: No intracranial hemorrhage, hydrocephalus or extra-axial fluid collection.No areas of brai n edema or evidence of midline shift. Moderate severe bilateral subcortical and periventricular hypoa ttenuation. Cerebral atrophy. Remote basal ganglia, right cerebellar, and deep white matter infarcts. Cavum septum pellucidum The paranasal sinuses and mastoids are clear. The calvarium is intact. IMPRESSION: No acute intracranial abnormality. 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
[2021-11-12] MEDS ORDERED: NA CHLORIDE 0.9% 1,000 ML ONE ×2 (13:09→15:22)
[2021-11-12 13:19] LABS: Absolute Lymphocytes (CBC) 0.9 K/uL (0.7-4.9); Hematocrit 41.8 % (39.6-49.0); Lymphocytes % 7.9 % (15.3-44.8); MPV 7.9 fL (7.6-11.3); RBC Red Blood Cell Count 4.53 M/uL (4.33-5.43)
[2021-11-12 13:41] LABS: Albumin 3.1 g/dL (3.4-5.0); Bilirubin Direct 0.3 mg/dL (0-0.2); Bilirubin Total 0.8 mg/dL (0.2-1.0); CKMB Creatine Kinase MB 3.5 ng/mL (1.0-3.6); Magnesium 1.9 mg/dL (1.8-2.4); Protein, Total 8.2 g/dL (6.4-8.2)
--- NOTE | 2021-11-12 13:48 | ER ---
Nurse's Notes [facility] Name: Valerio France Age: 86 yrs Sex: Male : 1935 Arrival Date: 11/12/2021 Time: 12:31 Bed 2 Private MD: Diagnosis: Transient cerebral ischemic attack, unspecified Presentation: 11/12 12:34 Chief complaint: Pt's daughter states "we were here for preop labs and he started aa5 jennifer his left arm and his legs went straight and stiff and he wasn't really able to follow commands, he was talking to me but not actually doing what I was asking him to do". Pt c/o dizziness, A\\T\\O x person, place, and time. Left sided weakness noted, left facial droop noted. Pt takes Plavix. Onset of symptoms was November 12, 2021. 12:34 Acuity: VICTORINO 2 aa5 12:34 Method Of Arrival: Wheelchair aa5 12:34 An acute neurological deficit is present. Pre-hospital glucose is not applicable to aa5 this patient. 17:16 Coronavirus screen: At this time, the client does not indicate any symptoms associated ld1 with coronavirus-19. Ebola Screen: No symptoms or risks identified at this time. Initial Sepsis Screen: Does the patient meet any 2 criteria? No. Patient's initial sepsis screen is negative. Does the patient have a suspected source of infection? No. Patient's initial sepsis screen is negative. Risk Assessment: Do you want to hurt yourself or someone else? Patient reports no desire to harm self or others. Triage Assessment: 12:34 The onset of the patients symptoms was November 12, 2021 at 12:28. aa5 12:35 General: Appears uncomfortable. Neuro: Level of Consciousness is awake, obeys commands, aa5 confused, Oriented to person, place, time, Relief Salesperson are weak on left Weakness in left hand(s) arm(s) leg(s) Speech is normal, Facial droop on left, Reports dizziness. Respiratory: Airway is patent Respiratory effort is even, unlabored, Respiratory pattern is regular, symmetrical. Derm: Skin is pink, warm \\T\\ dry. Stroke Activation: Symptom onset < 3 hours Physician: Stroke Attending; Name: ; Notified At: ; Arrived At: Physician: Chief Stroke Resident; Name: ; Notified At: ; Arrived At: Physician: Stroke Resident; Name: ; Notified At: ; Arrived At: Physician: ED Attending; Name: ; Notified At: ; Arrived At: Physician: ED Resident; Name: ; Notified At: ; Arrived At: Historical: - Allergies: 12:34 No Known Allergies; aa5 - PMHx: 12:34 Diabetes - NIDDM; Hypertension; multiple myleoma; TIA; aa5 - Immunization history:: Adult Immunizations up to date, Client reports receiving the 2nd dose of the Covid vaccine. - Social history:: Smoking status: Patient denies any tobacco usage or history of. Patient/guardian denies using alcohol. - Family history:: not pertinent. Screenin:14 Abuse screen: Denies threats or abuse. Denies injuries from another. Nutritional ld1 screening: No deficits noted. Nutritional screening: No deficits noted. Tuberculosis screening: No symptoms or risk factors identified. Fall Risk IV access (20 points). Gait- Weak (10 pts.). Mental Status- Oriented to own ability (0 pts). Total Estrella Fall Scale indicates Low Risk Score (25-44 pts). Assessment: 12:41 Reassessment: Pt taken to CT scan via wheelchair, accompanied by me. . aa5 12:54 Reassessment: Pt back from CT scan via stretcher, accompanied by me. Report given to aaCarli Lizama RN. 13:14 VAN Scoring:. Patient has been NPO before screening. The patient is alert, and able to ld1 follow commands. The patient exhibits slurred or garbled speech. The patient is not exhibiting difficulty speaking. The patient does not exhibit difficulty understanding words. The patient is able to swallow own secretions with no drooling or need for suction. Patient tolerated one teaspoon of water. No drooling, immediate coughing, gurgling, or clearing of the throat was noted. The patient tolerated 90mL of water. No drooling, immediate coughing, gurgling, or clearing of the throat was noted. The patient passed the bedside swallow screening. Oral medications may be given as ordered. Contact Physician for further diet orders. Provider notified of bedside swallow screening results: Jeancarlos Deleon MD. General: Appears in no apparent distress. comfortable, Behavior is calm, cooperative, appropriate for age. Pain: Denies pain. Neuro: Level of Consciousness is awake, alert, obeys commands, Oriented to person, place, time, situation, Appropriate for age. Neuro: Relief Salesperson are weak on right Facial droop on right. Cardiovascular: Capillary refill < 3 seconds Patient's skin is warm and dry. Respiratory: Airway is patent Respiratory effort is even, unlabored. GI: Abdomen is flat, non-distended. : No signs and/or symptoms were reported regarding the genitourinary system. EENT: No signs and/or symptoms were reported regarding the EENT system. Derm: No signs and/or symptoms reported regarding the dermatologic system. Musculoskeletal: No signs and/or symptoms reported regarding the musculoskeletal system. 13:47 Reassessment: Patient appears in no apparent distress at this time. No changes from ld1 previously documented assessment. Pt laying in bed talking to granddaughter at bedside. Patient denies pain at this time. Vital Signs: 13:47 BP 148 / 70; Pulse 80; Resp 12; Pulse Ox 100% on R/A; ld1 14:34 BP 109 / 59; Pulse 86; Resp 20; Pulse Ox 100% on R/A; bh1 16:49 BP 162 / 88; Pulse 98; Resp 14; Pulse Ox 100% on R/A; ld1 NIH Stroke Scale Scores: 12:34 NIHSS Score: 6 aa5 ED Course: 12:31 Patient arrived in ED. as 12:34 Arm band placed on. aa5 12:36 Triage completed. aa5 12:52 Jeancarlos Deleon MD is Attending Physician. ma2 12:56 CT Stroke Brain w/o Contrast In Process Unspecified. EDMS 12:59 Alda Trevizo, LIOR is Primary Nurse. ld1 13:14 Patient has correct armband on for positive identification. Placed in gown. Bed in low ld1 position. Call light in reach. Side rails up X2. front desk monitor on. Pulse ox on. NIBP on. Door closed. Noise minimized. Warm blanket given. 13:14 No provider procedures requiring assistance completed. ld1 13:30 Inserted saline lock: 18 gauge in left forearm, using aseptic technique. Blood bh1 collected. 13:47 Jeancarlos Higuera MD is Hospitalizing Provider. ma2 13:58 UDS Sent. ld1 17:17 Patient admitted, IV remains in place. ld1 Administered Medications: 13:14 Drug: NS 0.9% 1000 ml Route: IV; Rate: 1 bolus; Site: left forearm; ld1 14:34 Follow up: IV Status: Completed infusion; IV Intake: 1000ml bh1 13:43 CANCELLED (melva): NS 0.9% 1000 ml IV at 1 bolus Per protocol; 1000 mL bolus ma2 Medication: 13:14 VIS not applicable for this client. ld1 Intake: 14:34 IV: 1000ml; Total: 1000ml. bh1 Output: 14:41 Urine: 350ml (Voided); Total: 350ml. bh1 Outcome: 13:47 Decision to Hospitalize by Provider. ma2 17:14 Patient left the ED. iw 17:16 Admitted to Med/surg accompanied by reshma, via stretcher, room 205, with chart, Report ld1 called to LIOR Duncan 17:16 Condition: stable 17:16 Instructed on the need for admit. NIH Stroke Scale - NIH Stroke Score Date: 11/12/2021 Time: 12:34 Total Score = 6 1a. Level of Consciousness (LOC) - 0(Alert) 1b. Level of Consciousness (LOC) (Month \\T\\ Age) - 0(Both) 1c. LOC Commands (Open \\T\\ Closes Eyes/Second Vp Hr Assessment) - 0(Both) 2. Best Gaze (Lateral Gaze Paresis) - 0(Normal) 3. Visual Field Loss - 0(No visual loss) 4. Facial Palsy - 2(Partial paralysis) 5a. Left Arm: Motor (10-second hold) - 2(Drift, some effort against gravity) 5b. Right Arm: Motor (10-second hold) - 0(No drift) 6a. Left Leg: Motor (5-second hold - always test supine) - 2(Drift, some effort against gravity) 6b. Right Leg: Motor (5-second hold - always test supine) - 0(No drift) 7. Limb Ataxia (finger/nose \\T\\ heel/ba - test with eyes open) - 0(Absent) 8. Sensory Loss (pinprick arms/legs/face) - 0(Normal) 9. Best Language: Aphasia (description/naming/reading) - 0(No aphasia) 10. Dysarthria (speech clarity - read or repeat words) - 0(Normal) 11. Extinction and Inattention (visual/tactile/auditory/spatial/personal) - 0(No abnormality) Initials: aa5 Signatures: Dispatcher [employer] EDMS Melissa Mathews as Trisha Sorensen RN RN Tiffany Harvey RN RN aa5 Jeancarlos Deleon MD MD ma2 Alda Trevizo RN RN ld1 Debbie Kearney RN RN 1 Corrections: (The following items were deleted from the chart) : 12:34 Chief complaint: Pt's daughter states "we were here for preop labs and he aa5 started jennifer his left arm and his legs went straight and stiff and he wasn't really able to follow commands, he was talking to me but not actually doing what I was asking him to do". Pt c/o dizziness, A\\T\\O x person, place, and time. aa5 12:31 NIHSS Score: 6 aa5 aa5 13: 12:34 Chief complaint: Pt's daughter states "we were here for preop labs and he aa5 started jennifer his left arm and his legs went straight and stiff and he wasn't really able to follow commands, he was talking to me but not actually doing what I was asking him to do". Pt c/o dizziness, A\\T\\O x person, place, and time. Left sided weakness noted, left facial droop noted. aa5 12:31 The onset of the patients symptoms was November 12, 2021 at 12:28 aa5 aa5
--- NOTE | 2021-11-12 13:49 | EDPHYS ---
Physician Documentation [facility] Name: Valerio France Age: 86 yrs Sex: Male : 1935 Arrival Date: 11/12/2021 Time: 12:31 Bed 2 Private MD: ED Physician Jeancarlos Deleon HPI: 11/12 13:40 This 86 yrs old Male presents to ER via Wheelchair with complaints of Altered Mental ma2 Status. 13:40 Current symptoms: In the emergency department the patient's symptoms have resolved. Two ma2 6-year-old male history of multiple TIAs in the past diabetes hypertension takes aspirin Plavix daily, he was in the hospital for preop work-up for right groin stent that was scheduled on Monday, while about to leave the hospital, patient had sudden onset of confusion and left-sided weakness, the symptoms have been present minutes ago,. All symptom has resolved at this time. Patient is back to normal strength is back to normal,. Historical: - Allergies: 12:34 No Known Allergies; aa5 - PMHx: 12:34 Diabetes - NIDDM; Hypertension; multiple myleoma; TIA; aa5 - Immunization history:: Adult Immunizations up to date, Client reports receiving the 2nd dose of the Covid vaccine. - Social history:: Smoking status: Patient denies any tobacco usage or history of. Patient/guardian denies using alcohol. - Family history:: not pertinent. ROS: 13:40 Constitutional: Negative for fever, chills, and weight loss. ma2 13:40 All other systems are negative. Exam: 13:40 Constitutional: This is a well developed, well nourished patient who is awake, alert, ma2 and in no acute distress. Head/Face: Normocephalic, atraumatic. Eyes: Pupils equal round and reactive to light, extra-ocular motions intact. Lids and lashes normal. Conjunctiva and sclera are non-icteric and not injected. Cornea within normal limits. Periorbital areas with no swelling, redness, or edema. ENT: Nares patent. No nasal discharge, no septal abnormalities noted. Tympanic membranes are normal and external auditory canals are clear. Oropharynx with no redness, swelling, or masses, exudates, or evidence of obstruction, uvula midline. Mucous membranes moist. Neck: Trachea midline, no thyromegaly or masses palpated, and no cervical lymphadenopathy. Supple, full range of motion without nuchal rigidity, or vertebral point tenderness. No Meningismus. Chest/axilla: Normal chest wall appearance and motion. Nontender with no deformity. No lesions are appreciated. Cardiovascular: Regular rate and rhythm with a normal S1 and S2. No gallops, murmurs, or rubs. Normal PMI, no JVD. No pulse deficits. Respiratory: Lungs have equal breath sounds bilaterally, clear to auscultation and percussion. No rales, rhonchi or wheezes noted. No increased work of breathing, no retractions or nasal flaring. Abdomen/GI: Soft, non-tender, with normal bowel sounds. No distension or tympany. No guarding or rebound. No evidence of tenderness throughout. Skin: Warm, dry with normal turgor. Normal color with no rashes, no lesions, and no evidence of cellulitis. MS/ Extremity: Pulses equal, no cyanosis. Neurovascular intact. Full, normal range of motion. Neuro: Awake and alert, GCS 15, oriented to person, place, time, and situation. Cranial nerves II-XII grossly intact. Motor strength 5/5 in all extremities. Sensory grossly intact. Cerebellar exam normal. Normal gait. Vital Signs: 13:47 BP 148 / 70; Pulse 80; Resp 12; Pulse Ox 100% on R/A; ld1 14:34 BP 109 / 59; Pulse 86; Resp 20; Pulse Ox 100% on R/A; bh1 16:49 BP 162 / 88; Pulse 98; Resp 14; Pulse Ox 100% on R/A; ld1 NIH Stroke Scale Scores: 12:34 NIHSS Score: 6 aa5 MDM: 12:52 Patient medically screened. ma2 13:40 Differential Diagnosis: CVA, electrolyte abnormality, hypoglycemia, volume depletion. ma2 Data reviewed: vital signs, nurses notes. Counseling: I had a detailed discussion with the patient and/or guardian regarding: the historical points, exam findings, and any diagnostic results supporting the discharge/admit diagnosis, the presence of at least one elevated blood pressure reading (>120/80) during this emergency department visit, the need for outpatient follow up. Response to treatment: the patient's symptoms have resolved after treatment. 11/12 12:52 Order name: Glucose, Ancillary Testing; Complete Time: 13:43 EDMS 11/12 12:53 Order name: Amylase, Serum; Complete Time: 13:43 ok2 11/12 12:53 Order name: Basic Metabolic Panel; Complete Time: 13:43 ma2 11/12 12:53 Order name: CBC with Diff; Complete Time: 13:43 ok2 11/12 12:53 Order name: CPK; Complete Time: 13:43 ok2 11/12 12:53 Order name: Ckmb; Complete Time: 13:43 ok2 11/12 12:53 Order name: Hepatic Function; Complete Time: 13:43 ok2 11/12 12:53 Order name: Lipase; Complete Time: 13:43 ok2 11/12 12:53 Order name: Magnesium; Complete Time: 13:43 ok2 11/12 12:53 Order name: Protime (+inr) ok2 11/12 12:53 Order name: Ptt, Activated ok2 11/12 12:53 Order name: UDS ok2 11/12 13:55 Order name: Urine Dipstick-Ancillary EDMS 11/12 14:39 Order name: CBC with Automated Diff EDMS 11/12 12:43 Order name: CT Stroke Brain w/o Contrast; Complete Time: 13:43 eb 11/12 12:53 Order name: EKG; Complete Time: 12:54 ok2 11/12 14:32 Order name: Brain Wo Cont EDMS 11/12 14:39 Order name: Echo with Doppler EDMS 11/12 14:39 Order name: CBC with Automated Diff EDMS 11/12 14:39 Order name: Comprehensive Metabolic Panel EDMS 11/12 14:39 Order name: Comprehensive Metabolic Panel EDMS 11/12 14:39 Order name: Lipid Profile EDMS 11/12 14:39 Order name: Lipid Profile EDMS 11/12 14:39 Order name: Magnesium EDMS 11/12 14:39 Order name: Magnesium EDMS 11/12 14:39 Order name: Phosphorus EDMS 11/12 14:39 Order name: Phosphorus EDMS 11/12 14:39 Order name: Chest Pa And Lat (2 Views) EDMS 11/12 12:53 Order name: Accucheck; Complete Time: 13:00 ma2 11/12 12:53 Order name: Cardiac monitoring; Complete Time: 13:14 ma2 11/12 12:53 Order name: EKG - Nurse/Tech; Complete Time: 13:14 [facility] 11/12 12:53 Order name: IV Saline Lock; Complete Time: 13:14 [facility] 11/12 12:53 Order name: Labs collected and sent; Complete Time: 13:14 [facility] 11/12 12:53 Order name: NPO; Complete Time: 13:00 [facility] 11/12 12:53 Order name: O2 Per Protocol; Complete Time: 13:00 [facility] 11/12 12:53 Order name: O2 Sat Monitoring; Complete Time: 13:00 [facility] 11/12 12:53 Order name: Stroke Swallow Screen; Complete Time: 13:36 [facility] 11/12 14:39 Order name: Physical Therapy Consult [facility] 11/12 14:39 Order name: Speech Therapy Consult [facility] 11/12 14:39 Order name: Heart Healthy [facility] 11/12 14:39 Order name: EKG Electrocardiogram EDMS Administered Medications: 13:14 Drug: NS 0.9% 1000 ml Route: IV; Rate: 1 bolus; Site: left forearm; ld1 14:34 Follow up: IV Status: Completed infusion; IV Intake: 1000ml bh1 13:43 CANCELLED (melva): NS 0.9% 1000 ml IV at 1 bolus Per protocol; 1000 mL bolus ok2 Disposition Summary: 11/12/21 13:47 Hospitalization Ordered Hospitalization Status: Observation [facility] Provider: Jeancarlos Higuera Location: Telemetry/MedSurg (Inpatient) ma2 Condition: Stable ma2 Problem: new ma2 Symptoms: are unchanged [facility] Bed/Room Type: Standard [facility] Room Assignment: 205(11/12/21 16:56) dw Diagnosis - Transient cerebral ischemic attack, unspecified ok2 Forms: - Medication Reconciliation Form ma2 - SBAR form ok2 NIH Stroke Scale - NIH Stroke Score Date: 11/12/2021 Time: 12:34 Total Score = 6 1a. Level of Consciousness (LOC) - 0(Alert) 1b. Level of Consciousness (LOC) (Month \T\ Age) - 0(Both) 1c. LOC Commands (Open \T\ Closes Eyes/Pediatric Clinical Dietician) - 0(Both) 2. Best Gaze (Lateral Gaze Paresis) - 0(Normal) 3. Visual Field Loss - 0(No visual loss) 4. Facial Palsy - 2(Partial paralysis) 5a. Left Arm: Motor (10-second hold) - 2(Drift, some effort against gravity) 5b. Right Arm: Motor (10-second hold) - 0(No drift) 6a. Left Leg: Motor (5-second hold - always test supine) - 2(Drift, some effort against gravity) 6b. Right Leg: Motor (5-second hold - always test supine) - 0(No drift) 7. Limb Ataxia (finger/nose \T\ heel/ba - test with eyes open) - 0(Absent) 8. Sensory Loss (pinprick arms/legs/face) - 0(Normal) 9. Best Language: Aphasia (description/naming/reading) - 0(No aphasia) 10. Dysarthria (speech clarity - read or repeat words) - 0(Normal) 11. Extinction and Inattention (visual/tactile/auditory/spatial/personal) - 0(No abnormality) Initials: aa5 Signatures: Dispatcher [employer] EDRos Marie RN RN dw Tiffany Harvey RN RN aa5 Jeancarlos Deleon MD MD ok2 Alda Trevizo RN RN ld1 Debbie Kearney RN 1 Corrections: (The following items were deleted from the chart) 13:43 13:43 NS 0.9% 1000 ml IV at 1 bolus Per protocol; 1000 mL bolus ordered. ok2 ma2 16:56 13:47 ma2
[2021-11-12 13:55] LABS: Urine Blood Negative (Negative); Urine Glucose Negative (Negative); Urine Protein Negative (Negative); Urine Specific Gravity 1.015 (1.005-1.030); Urine pH 5.5 (5.0-7.0)
[2021-11-12 14:11] LABS: Barbiturates NEGATIVE (NEGATIVE); Benzodiazepines NEGATIVE (NEGATIVE); Cocaine NEGATIVE (NEGATIVE); METHAMPHETAM NEGATIVE (NEGATIVE); Methadone NEGATIVE (NEGATIVE); Opiates NEGATIVE (NEGATIVE); Phencyclidine NEGATIVE (NEGATIVE); THC Cannibis NEGATIVE (NEGATIVE)
[2021-11-12] MEDS ORDERED: ONDANSETRON 4 MG/2 ML VIAL IV PRN (14:30)
[2021-11-12] MEDS ORDERED: ACETAMINOPHEN 500 MG TAB PO PRN (14:30)
[2021-11-12 14:53] LABS: Protime INR 1.12
[2021-11-12] MEDS: ENOXAPARIN 40 MG/0.4 ML SQ SCH (15:00)
[2021-11-12] MEDS: NA CHLORIDE 0.9% 1,000 ML IV SCH (15:00)
[2021-11-12] MEDS ORDERED: ENOXAPARIN 40 MG/0.4 ML SQ ONE (15:23)
--- NOTE | 2021-11-12 15:49 | RAD REPORT ---
EXAM DESCRIPTION: MRI - Brain Wo Cont - 11/12/2021 3:42 pm CLINICAL HISTORY: CVA COMPARISON: No comparisons TECHNIQUE: Sagittal T1-weighted images were obtained along with PD/heavily T2-weighted and T2-FLAIR images. Axial DWI and ADC mapping sequences were also obtained along with coronal heavily T2-weighted images were obtained. FINDINGS: No intracranial hemorrhage, mass or acute infarction. There is no edema or shift of midlin e structures. No extra-axial fluid collections. Signal voids are seen as a normal finding in the lliliana r intracranial vessels. Advanced chronic small vessel ischemic changes with evidence of remote infarc ts including at the right cerebellum, basal ganglia, and within the centrum semiovale and holt radi osiris. Mastoid air cells and paranasal sinuses are clear. IMPRESSION: No acute intracranial abnormality. Specifically, no evidence of acute infarct. Advanced chronic small vessel ischemic changes and sequela of remote infarcts.
[2021-11-12] MEDS ORDERED: VANCOMYCIN 1.5 GM in NA CHLORIDE 0.9% 500 ML IVPB SCH (16:00)
[2021-11-12 18:11] VITALS: BMI 24.7
[2021-11-12] MEDS ORDERED: ATORVASTATIN 40 MG TAB PO SCH (21:00)
[2021-11-12 22:10] LABS: Urine Appearance Clear (Clear); Urine Bilirubin Negative (Negative); Urine Blood Negative (Negative); Urine Color Yellow (Yellow); Urine Glucose 1+ (Negative); Urine Protein Negative (Negative); Urine Urobilinogen 0.2 mg/dL (0.2-1.0); Urine pH 5.5 (5.0-7.0)
[2021-11-12 22:13] LABS: Urine Microscopic Reflex NO UMIC
--- NOTE | 2021-11-13 00:49 | P.HP ---
Certification for Inpatient Patient admitted to: Observation With expected LOS: <2 Midnights Patient will require the following post-hospital care: None Practitioner: I am a practitioner with admitting privileges, knowledge of patient current condition, hospital course, and medical plan of care. Services: Services provided to patient in accordance with Admission requirements found in Title 42 Section 412.3 of the Code of Federal Regulations Patient History Date of Service: 11/12/21 Reason for admission: CVA Allergies No Known Allergies Allergy (Verified 11/12/21 10:58) Home Medications: Amlodipine Besylate/Benazepril [Amlodipine-Benazepril 10-40 mg] 10 mg PO BEDTIME 05/15/16 Levothyroxine Sodium 75 mcg PO [id number] 05/15/16 Metformin HCl [Glucophage] 500 mg PO BID 05/15/16 Aspirin 81 mg PO DAILY 06/18/21 Atorvastatin Calcium [Lipitor] 80 mg PO BEDTIME 06/18/21 Fluoxetine HCl 10 mg PO DAILY 06/18/21 Dicyclomine [Bentyl*] 10 mg PO BID PRN 10/13/21 Diphenoxylate HCl/Atropine [Diphenoxylate-Atrop 2.5-0.025] 1 tab PO Q6HP PRN 10/13/21 Clopidogrel Bisulfate [Plavix*] 75 mg PO DAILY #30 tablet 10/15/21 Collagenase [Santyl Ointment*] 1 appl TOP DAILY #1 tube 10/15/21 Lactobacillus Acidophilus [Acidophilus Lactobacilli] 1 each PO BID #60 capsule 10/15/21 levoFLOXacin [Levaquin] 750 mg PO DAILY #42 tab 10/15/21 - Past Medical/Surgical History Has patient received pneumonia vaccine in the past: Yes Diabetic: Yes -: A Fib -: Depression -: HTN -: DM -: Osteomyelitis -: Hyperlipidemia -: Hypothyroidism -: PAD -: L knee surgery -: cataract sx -: Watchman Device - Family History Father Medical History: GI disease, Cancer Notes: pt has hx of DM and is on insulin - Social History Smoking Status: Former smoker Alcohol use: No CD- Drugs: No Caffeine use: No Place of Residence: Home Review of Systems 10-point ROS is otherwise unremarkable Physical Examination - Vital Signs Temperature: 97.7 F Blood Pressure: 112/57 Pulse: 75 Respirations: 17 Pulse Ox (%): 99 - Physical Exam General: Alert, In no apparent distress, Oriented x3 HEENT: Atraumatic, PERRLA, Mucous membr. moist/pink, EOMI, Sclerae nonicteric Neck: Supple, 2+ carotid pulse no bruit, No LAD, Without JVD or thyroid abnormality Respiratory: Clear to auscultation bilaterally, Normal air movement Cardiovascular: Regular rate/rhythm, Normal S1 S2 Gastrointestinal: Normal bowel sounds, No tenderness Musculoskeletal: No tenderness Integumentary: No rashes Neurological: Normal gait, Normal speech, Normal strength at 5/5 x4 extr, Normal tone, Normal affect Lymphatics: No axilla or inguinal lymphadenopathy - Studies Laboratory Data (last 24 hrs) 11/12/21 13:10: PT 13.3 H, INR 1.12, APTT 30.5 11/12/21 13:10: WBC 11.6 H, Hgb 13.8, Hct 41.8, Plt Count 221 11/12/21 13:10: Sodium 135 L, Potassium 4.0, BUN 34 H, Creatinine 1.44 H, Glu cose 145 H, Magnesium 1.9, Total Bilirubin 0.8, AST 40 H, ALT 62, Alkaline Phosphatase 69, Amylase 64, Lipase 124 Assessment & Plan - Problems (Diagnosis) (1) CVA (cerebral vascular accident) Current Visit: Yes Status: Acute (2) Atrial fibrillation Current Visit: No Status: Acute (3) Hx of left knee surgery Current Visit: No Status: Acute (4) Hx of multiple myeloma Current Visit: No Status: Acute (5) Hx of transient ischemic attack (TIA) Current Visit: No Status: Acute (6) Hyperlipidemia Current Visit: No Status: Acute (7) Hypertension Current Visit: No Status: Acute (8) Hypothyroidism Current Visit: No Status: Acute (9) PAD (peripheral artery disease) Current Visit: No Status: Acute (10) Presence of Watchman left atrial appendage closure device Current Visit: No Status: Acute (11) Diabetes mellitus Current Visit: No Status: Chronic - Advance Directives Does patient have a Living Will: No Does patient have a Durable POA for Healthcare: No
[2021-11-13 03:48] VITALS: O2SAT 97
[2021-11-13 04:03] LABS: Absolute Lymphocytes (CBC) 1.3 K/uL (0.7-4.9); Hematocrit 35.1 % (39.6-49.0); Lymphocytes % 15.9 % (15.3-44.8); MPV 7.8 fL (7.6-11.3); RBC Red Blood Cell Count 3.87 M/uL (4.33-5.43)
[2021-11-13 04:29] LABS: Albumin 2.6 g/dL (3.4-5.0); Bilirubin Total 0.6 mg/dL (0.2-1.0); Magnesium 1.8 mg/dL (1.8-2.4); Phosphorus 3.2 mg/dL (2.5-4.9); Potassium 3.3 mmol/L (3.5-5.1); Protein, Total 6.5 g/dL (6.4-8.2)
[2021-11-13] MEDS: NA CHLORIDE 0.9% 1,000 ML IV SCH (05:26)
--- NOTE | 2021-11-13 08:55 | EKG ---
Test Date: 2021-11-12 Test Time: 11:36:29 Licensed Sales Assistant: GEN MEASUREMENT RESULTS: Intervals: Rate: 81 WV: 258 QRSD: 78 QT: 386 QTc: 448 [place]: P: 29 WV: 258 QRS: 28 T: 50 INTERPRETIVE STATEMENTS: Sinus rhythm with 1st degree AV block Otherwise normal ECG Compared to ECG 10/15/2021 17:06:32 No significant changes Electronically Signed On 11-13-21 08:55:04 CDT by Gen Porter
[2021-11-13] MEDS ORDERED: ASPIRIN EC 81 MG TAB PO SCH (09:00)
[2021-11-13] MEDS ORDERED: MAGNESIUM SULFATE 1 gm IVPB 1 GM/100 ML BAG IV ONE (09:00)
[2021-11-13] MEDS ORDERED: CLOPIDOGREL 75 MG TABLET PO SCH (09:00)
[2021-11-13] MEDS ORDERED: POTASSIUM 25 MEQ EFFERV TAB PO ONE (09:00)
[2021-11-13] MEDS: ENOXAPARIN 40 MG/0.4 ML SQ SCH (09:42)
[2021-11-13 12:58] VITALS: BP 151/74; TEMP 96.9
--- NOTE | 2021-11-15 11:58 | EKG ---
Test Date: 2021-11-12 Test Time: 12:59:08 Sand Mixer Operator: MOLLY MEASUREMENT RESULTS: Intervals: Rate: 81 GA: 268 QRSD: 82 QT: 400 QTc: 464 [place]: P: 63 GA: 268 QRS: 47 T: 37 INTERPRETIVE STATEMENTS: Sinus rhythm with 1st degree AV block Otherwise normal ECG Compared to ECG 11/12/2021 11:36:29 No significant changes Electronically Signed On 11-15-21 11:52:07 CDT by Gen Porter
== END 2021-11-13 12:00 | disposition home or self-care (01) ==
LOC: ER 12:28 → ERHOLD 14:31 → 2ND 17:09
PROVIDERS: ADMIT Hospitalist; ATTEND Hospitalist
DX: I63.9 Cerebral infarction, unspecified (principal); R29.706 NIHSS score 6; I10 Essential (primary) hypertension; I48.91 Unspecified atrial fibrillation; E11.9 Type 2 diabetes mellitus without complications; I73.9 Peripheral vascular disease, unspecified; E78.5 Hyperlipidemia, unspecified; E03.9 Hypothyroidism, unspecified; M86.9 Osteomyelitis, unspecified; F32.A Depression, unspecified; Z86.73 Personal history of transient ischemic attack (TIA), and cerebral infarction without residual deficits; Z87.891 Personal history of nicotine dependence; Z85.79 Personal history of other malignant neoplasms of lymphoid, hematopoietic and related tissues; Z79.02 Long term (current) use of antithrombotics/antiplatelets; Z79.82 Long term (current) use of aspirin; Z79.899 Other long term (current) drug therapy; Z80.9 Family history of malignant neoplasm, unspecified
CPT/HCPCS: 93005 ×2; 85025 ×2; 80048; 36415; 82150; 83735 ×2; 82550; 84100; 85610; 80061; 82947; 80076; 85730; 81003 ×2; 82553; 83690; 80053; 80307; 70450; 70551; 97116 ×2; 97161; 97530; 96360; 99285; J1650 ×2; J3370; J3475; J7040; J7030 ×3; G0378 ×3

== ENCOUNTER 2021-11-16 07:00 | Day surgery (SDC) | payer OTHER ==
[2021-11-12 11:52] LABS: Absolute Lymphocytes (CBC) 1.3 K/uL (0.7-4.9); Hematocrit 40.7 % (39.6-49.0); Lymphocytes % 12.3 % (15.3-44.8); MCV 92.2 fL (80-100); MPV 7.9 fL (7.6-11.3); RBC Red Blood Cell Count 4.41 M/uL (4.33-5.43)
[2021-11-12 12:05] LABS: Protime INR 1.2
--- NOTE | 2021-11-12 12:29 | RAD REPORT ---
EXAM DESCRIPTION: RAD - Chest Pa And Lat (2 Views) - 11/12/2021 12:19 pm CLINICAL HISTORY: preop, pending heart catheterization COMPARISON: None TECHNIQUE: Frontal and lateral views of the chest were obtained. FINDINGS: The lungs are underinflated with scattered fibrotic lung change similar to comparison. No acute infiltrate, failure or volume overload finding. Scattered granulomatous calcifications are pres ent. Pleural plaquing changes are suspected. Right-sided PICC line remains in place unchanged in position. Trachea is midline. Heart size is nor mal and central vasculature is within normal limits. No pleural effusion or pneumothorax seen. No a cute bone findings seen. Sclerotic focus posterior right seventh rib has not changed. No aortic abnor mality. IMPRESSION: No acute cardiopulmonary process. Chronic chest findings are not significantly different from October 14.
[~2021-11-16 07:00] MED LIST: ATROPINE SULF 1 MG/10 ML SYR IV ONE; FENTANYL CITR 100 MCG/2 ML ONE; HEPA 1000U/500MLS 2,000 UNIT/1,000 ML BAG IV ONE; HEPARIN 10,000 UNIT/10 ML VIAL IV ONE; LIDOCAINE 1% 20 ML MDV ONE; MIDAZOLAM HCL 2 MG/2 ML INJ ONE; NA CHLORIDE 0.9% 500 ML ONE
[2021-11-16 08:58] VITALS: TEMP 96.9
[2021-11-16 10:37] VITALS: BP 138/64; O2SAT 98
--- NOTE | 2021-11-16 12:21 | OP ---
Surgeon: Gen Porter MD Pet Feeder: Iris Phillips Vasquezmanish. Admitted as an outpatient to the slab polisher on 11/16/2021. He underwent abdominal angiogram with runof f with selective common femoral artery angiogram bilaterally on the left and right. Indication: Nonhealing foot wound with cellulitis on the left side approximately 4 weeks ago, status post 4 weeks of antibiotics. He is 86. Has a history of hypertension, diabetes, dyslipidemia. Procedure In Detail: He was brought to the slab polisher today as an outpatient, prepped and draped in th e routine sterile fashion. Given Versed and fentanyl for sedation. A 6-Slovenian sheath introduced in the right common femoral artery successfully using the Seldinger technique and 10 cc of Xylocaine. I nitially, a pigtail catheter 6-Slovenian was advanced over the renals in the distal aorta. Abdominal an giogram with runoff showed normal renals, normal aorta, normal iliacs. The pigtail catheter was jeanine jamal and then a CASANOVA catheter was used to cross the iliac bifurcation using a Glidewire. The CASANOVA cat heter was advanced into the left common femoral artery. Angiography there showed 50% to 60% left com mon femoral artery stenosis, 90% mid anterior tibial on the left side, 70% ostial posterior tibial on the left side. The CASANOVA catheter was then removed. right common femoral artery was done . Angiography there showed diffuse plaquing below the knee on the right side. Both SFAs were normal . Angio-Seal was used to close the case. There were no complications. Blood Loss: 5 mL. 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 Plan: We will plan for medical therapy. For now, I am going to add 2.5 mg twice a day of Xarelto to his regimen. He will go home today after 2 hours of bedrest and I will see him in the office in the next 2 weeks. XAVI/GARRET Voice ID: [id number] Report ID: [id number]
== END 2021-11-16 10:00 | disposition home or self-care (01) ==
LOC: CCL 07:00
DX: I70.203 Unspecified atherosclerosis of native arteries of extremities, bilateral legs (principal); E11.628 Type 2 diabetes mellitus with other skin complications; L03.032 Cellulitis of left toe; I10 Essential (primary) hypertension; E78.5 Hyperlipidemia, unspecified; I99.8 Other disorder of circulatory system; Z20.822 Contact with and (suspected) exposure to COVID-19
CPT/HCPCS: 93005; 85025; 80048; 36415; 85610; 82947 ×3; 85730; 71046; U0003; C1760; C1887; G0269; J2250; J3010; J7040; J1644; 36200; 36245; 36246; 75625; 75630; 75716

== ENCOUNTER 2022-01-16 05:11 | Inpatient (IN) | payer OTHER ==
--- OUTSIDE RECORDS SUMMARY | 2022-01-16 05:15 | XMS REPORT | Clinical Summary ---
:1935 Author Organization [facility] MD [facility] Center Address [address] [place] [id number] Care Team Providers Name Role Phone Celine Solis MD Primary Care Provider Remington Abraham MD Unavailable Remington Abraham MD Unavailable Aditi Butts NP Unavailable Nancy Galaviz STUDIO OWNER Unavailable Celine Solis MD Unavailable Gloria Hernandez MD Unavailable [phone] Allergies No known active allergies Medications Medication [...] 03/05/2016 Last Assessment & Plan: Formatting of th is note might be different from the original. Continue on synthroid. This is monitored by his local physician. Essential hypertension 03/05/2016 Last Assessment & Plan: Formatting of th is note is different from the original. His blood pressure is BP Readings from Last 1 Encounters: 02/22/17 132/79 . Continue current blood pressure regim en and follow with PCP. Type 2 diabetes mellitus without complication 03/05/20 16 Last Assessment & Plan: Formatting of th is note might be different from the original. He will continue on janumet and follow w ith his local PCP. Encounters Date Type Specialty Care Team Description 07/23/2021 Telephone Lymphoma and Myeloma Shalonda Kim Ap pointment RN 06/10/2021 Orders Only Lymphoma and Myeloma Aditi Butts ltiplmanish myeloma A, STUDIO OWNER (Primary Dx) 02/02/2021 Telephone Lymphoma and Myeloma Alison Mcgarry Follow- up after 01/16/2021 Immunizations Name Administration Dates Next Due Influenza, [...] Due Date Last Done Comments COVID-19 Vaccination (#1) 1935 Results Not on fileafter 01/16/2021 Insurance Payer Benefit Plan / Subscriber ID Effective Dates Phone Addre ss Type Group AETNA MEDICARE AETNA MEDICARE [id number] 2021-Marian [address] Medicare PPO [facility] [place] [address] Valerio France Personal/Family Self [phone] (Home) [place] [address] Valerio France Personal/Family Self [phone] (Home[address] [place] [address] Care Teams [employer]etrack Steward Relationship Specialty Start Date End Date Celine Solis MD PCP - General 07/29/[address] [place] [id number] Remington Abraham MD PCP - External Referring 06/11/14 Remington Abraham MD PCP - External Follow Up A 06/11/14 Aditi Butts, STUDIO OWNER Nurse Practitioner 08/05/[address] [place] [id number] Nancy Galaviz, STUDIO OWNER Nurse Practitioner 08/05/[address] [place] [id number] Celine Solis MD Physician 08/05/[address] [place] [id number] Gloria Hernandez Hematology 01/02/19 MD [facility] [address] [place], [place] [address]
--- OUTSIDE RECORDS SUMMARY | 2022-01-16 05:17 | XMS REPORT | Continuity of Care Document ---
:1935 Author Organization [facility] t Address [address] [place] [address] Care Team Providers Name Role Phone Nahid Marcial MD Primary Care Physician CINDA FAJARDO Attending Clinician Unavailable Julio TINAJERO, Shalonda Munoz Attending Clinician Aditi Grant NP Attending Clinician Antonia Villarreal Attending Clinician Doctor Unassigned, Heil Attending Clinician Unavailable Alison Mcgarry Attending Clinician Unavailable KAREEM ARIZA Attending Clinician Unavailable KATELYN PRIDE Attending Clinician Unavailable Ashley Franz Attending Clinician MARCELA OBRIEN Attending Clinician Unavailable Lab, Adc Fam Pob I Attending Clinician Unavailable Marcela Claire Attending Clinician NAHID MARCIAL Attending Clinician Unavailable ADITI GRANT Attending Clinician Unavailable KAREEM ARIZA Admitting Clinician Unavailable Payers Payer Name Policy Type Policy Number Effective Date Expiration Date Lenore ersendiz AETNA MEDICARE [id number] 2013 PPO 00:00:00 [employer]ETNA MEDICARE [id number] 2013 PPO 00:00:00 MEDICARE [id number] 2013 2013 ADVANTAGE GENERIC 00:00:00 00:00:00 Problems Condition Condition Condition Status Onset Resolution Last Treating Co mments Source Name Details Category Date Date Treatment Clinician Date TIA TIA Diagnosis Active 2018-052019-05-10 Mem oria Active 07-05 22:06:00 l 05/04/2019 00:00: Pradip [facility] 00 Vik Drug-induc Drug-induc Disease Active 2018- U tomás ed ed 9-24 ity of polyneurop [place]urop [place] at[place] at[place] [facility] History of History of Disease Active U tomás cerebrovas cerebrovas 9-24 it y of cular cular 00:00: [place] accident accident 00 MD [facility] 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 2-28 ity of 00:00: [place] 00 MD [facility] Renal Renal Disease Active Univers insufficie insufficie 2-28 it y of ncy ncy 00:00: 00 MD [facility] Abdominal Abdominal Disease Active 2017-05 Uni vers bruit bruit 0-03 ity of 00:00: 00 MD [facility] Influenza Influenza Disease Active 2017-05 Uni vers vaccine vaccine 0-03 ity of needed needed 00:00: 00 MD [facility] Hypothyroi Hypothyroi Disease Active 2015-05 Last U nivers dism dism 0-08 Assessmen ity of 00:00: t & Plan: Medina springer of this Anderso note n might be Cancer different Center from the original. Continue on synthroid . This is monitored by his local physician . Essential Essential Disease Active 2015-05 Last Uni vers hypertensi hypertensi 0-08 Assessmen ity of on on 00:00: t & Plan: Med[place] springer of this [place] note is n different Cancer from the Center original. His blood pressure is BP Readings from Last 1 Encounter s: 02/22/17 132/79 . Continue current blood pressure regimen and follow with PCP. 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 He will continue on janumet and follow with his local PCP. 436 - CVA 436 - Diagnosis Active 2013-12-06 Memoria CVA Active 11-25 10:30:00 l 11/25/2013 00:01: Pradip DUKES OPID 00 [place] STROKE STROKE Diagnosis Active 2013-12-06 Me moria Active 11-25 13:21:00 l 11/25/2013 00:00: Pradip DUKES TIRR 00 Type II Type II Problem Active 2019-05-07 Al mori diabetes diabetes 22:42:21 l mellitus mellitus Pradip n uncontroll uncontroll ed ed (finding) (finding) Active Problem 05/07/2019 ERNST Anderson TRANSIENT TRANSIENT Diagnosis Active 2019-05-10 Memoria CEREBRAL CEREBRAL 22:06:00 l ISCHEMIC ISCHEMIC Pradip n ATTACK, ATTACK, UNSP UNSP Active [facility] Diabetes Diabetes Problem Resolve 2019-05-07 Memoria mellitus mellitus d 22:42:21 l (disorder) (disorder) He rmann Resolved Problem 05/07/2019 Alexis Newman TIRRosa, OPIAlexander Chery Hypertensi Problem Resolve 2019-05-07 Memoria ve Hypertensi d 22:42:21 l disorder, ve [place] systemic disorder, arterial systemic (disorder) arterial (disorder) Resolved Problem 05/07/2019 Alexis Newman TIRRosa, OPIAlexander Vik Transient Problem Resolve 2019-05-07 M emoria ischemic Transient d 22:42:21 l attack ischemic Vik (disorder) attack (disorder) Resolved Problem 05/07/2019 Alexis Newman TIRRosa, OPIAlexander Chery Allergies, Adverse Reactions, Alerts Allergy Allergy Status Severity Reaction(s) Onset Inactive Treating Comm ents Source Name Type Date Date Clinician NO KNOWN Drug Active Univers ALLERGIE Class ity of [facility] [place] [facility] Family History Family Member Diagnosis Comments Start Date Stop Date Source Natural father -Genitourinary [facility] (Bladder, Kidney, MD Irving gupta [facility] Prostate, Testicle) Christiano hines Social History Social Habit Start Date Stop Date Quantity Comments Source History of Cigar Smoker Malone o f tobacco use [facility] Exposure to Yes University of SARS-CoV-2 [place] [facility] (event) [facility] Alcohol intake 2018-03-23 2018-03-23 [facility] 00:00:00 00:00:00 non-drinker of Collin romo alcohol (finding) [facility] Tobacco use and 2015-09-22 2015-09-22 Smokeless tobacco Un iversity of exposure 00:00:00 00:00:00 non-user [facility] Tobacco Comment 2015-09-22 2015-09-22 quit in 1959 Univers ity of 00:00:00 00:00:00 [facility] Social History 2013-10-27 2013-10-27 [facility] 07:44:46 07:44:46 Sex [facility]igned At [birth year] [facility] Smoking Status Start Date Stop Date Source Unknown if ever smoked [facility] Ex-smoker 2015-09-22 00:00:00 2015-09-22 00:00:00 [facility] Medications Ordered Filled Start Stop Current [...] 1,200 mg at 1700, Routine ondansetron Yes [id number] 4mg Take 1 Univers (ZOFRAN 9- tablet by ity of ODT) 4 mg 00:00: mouth [place] disintegrat 00 every 8 Medic al ing tablet (eight) Branch hours as needed for Nausea and Vomiting (N/V). ondansetron Yes [id number] 4mg Take 1 Univers (ZOFRAN 9-09 tablet by ity of ODT) 4 mg 00:00: mouth [place] disintegrat 00 every 8 Medic al ing tablet (eight) Branch hours as needed for Nausea and Vomiting (N/V). levothyroxi 2020-0 Yes 75ug Take 75 Uni vers ne 7-24 mcg by ity of (SYNTHROID, 09:58: mouth [place] LEVOTHROID) 25 daily. 75 mcg Prisca tablet n [facility] amLODIPine- 2019-0 Yes Take by Uni vers benazepril 7-24 mouth at ity o f (LOTREL) 10 09:58: [place]. [place] mg-40 mg 25 per capsule Prisca [facility] rivaroxaban 2019-0 Yes 10mg Take 10 mg Univers (XARELTO) 7-24 by mouth ity of 10 mg 09:58: daily. Collin tablet 25 MD Prisca sanchez [facility] metFORMIN 2020-0 Yes 1000mg Take 1,000 Univers (GLUCOPHAGE 7-24 mg by ity of ) 500 mg 09:58: mouth 2 [place] tablet 25 (two) MD times a Anderso day with n meals. Cancer Center sitaGLIPtin 2019-0 Yes Take by Uni vers -metFORMIN 7-24 mouth 2 ity of (JANUMET) 09:58: (two) [place] 50 mg-1,000 25 times a MD mg per day with Anderso tablet meals. n [facility] levothyroxi 2019-0 Yes 75ug Take 75 Uni vers ne 7-24 mcg by ity of (SYNTHROID, 09:58: mouth [place] LEVOTHROID) 25 daily. MD 75 mcg [place] tablet n [facility] amLODIPine- 2019-0 Yes Take by Uni vers benazepril 7-24 mouth at ity o f (LOTREL) 10 09:58: [place] mg-40 mg 25 MD per capsule [place] n [facility] rivaroxaban 0 Yes 10mg Take 10 mg Univers (XARELTO) 7-24 by mouth ity of 10 mg 09:58: daily. [place] tablet 25 MD [place] n [facility] metFORMIN 2019-0 Yes 1000mg Take 1,000 Univers (GLUCOPHAGE 7-24 mg by ity of ) 500 mg 09:58: mouth 2 [place] tablet 25 (two) MD times a Anderso day with n meals. Cancer Center sitaGLIPtin 0 Yes Take by Uni vers -metFORMIN 7-24 mouth 2 ity of (JANUMET) 09:58: (two) [place] 50 mg-1,000 25 times a MD mg per day with Anderso tablet meals. n [facility] atorvastati 2018-05 No Notes: Chema zana n 07-07 (Same as: l 03:00: Lipitor) [place] 00 atorvastati 2018-05 Yes 20 mg = 1 M emoria n 20 MG 2-08 tab, PO, l Oral Tablet 22:04: Bedtime, # [place] [Lipitor] 00 30 tab, 0 Refill(s), Pharmacy: [id number] Metformin 2018-05 Yes 1,000 mg = Me moria hydrochlori 2-08 1 tab, PO, l de 1000 MG 22:04: BID-Meals, H ermann Oral Tablet 00 # 30 tab, 0 Refill(s), Pharmacy: [id number] canaglifloz 2018-05 Yes 100 mg = 1 Memoria in 100 MG 2-08 tab, PO, l Oral Tablet 22:04: Before Herm filemon [Invokana] 00 Breakfast, # 30 tab, 2 Refill(s), Pharmacy: [facility] #[id number] pantoprazol 2018-05 No Notes: For Memoria e 2-08 IV push l 15:00: reconstitu te with 10 ml 0.9% sodium chloride and push over 2 minutes. (Same as: Protonix) Saline 2018-05 No Notes: Memoria Flush 0.9% 2-08 (Same as: l 15:00: BD [place] 00 Posiflush) Insulin 2018-05 No Notes: Memoria [...] 2-08 25 mL, l (D50W) 05:07: Route: [place] 00 IVP, Drug Form: INJ, Dosing Weight 86.477, kg, PRN, PRN Blood Glucose Results, Start date: 05/04/19 23:07:00 [employer], Duration: 30 day, Stop date: 06/03/19 23:06:00 [employer], 0 Glucagon 2018-05 No 1 mg, Memoria 2-08 Route: IM, l 05:07: Drug form: Vik 00 PDR/INJ, PRN, Dosing Weight 86.477, kg, PRN Blood Glucose Results, Start date: 05/04/19 23:07:00 [employer], Duration: 30 day, Stop date: 06/03/19 23:06:00 [employer], 0 Insulin 2018-05 No Notes: Memoria Lispro [...] not crush l Coated 05:00: or chew. [place] Tablet 00 (Same As: Ecotrin) Acetaminoph 2018-05 No Notes: Do M emoria en -08 not exceed l 04:57: 4 gm/day. Gob[place] (Same as: Tylenol) Saline 2018-05 No Notes: Memoria Flush 0.9% 07-06 (Same as: l 04:57: BD [place] Posiflush) influenza 2018-05 No Notes: Memori a [...] Chloride 2-08 PO, Daily, l 04:15: 0 [place] 00 Refill(s) candesartan 2018-05 No 2 mg, PO, M emoria 2-08 Bedtime, 0 l 04:15: Refill(s) [place] 00 Metformin 2018-05 No 500 mg, Memor ia 2-08 PO, 0 l 04:15: Refill(s) Vik 00 potassium Yes TAKE 1 Univer s chloride 4-22 TABLET BY ity of (K-AUTUMN,KLOR 00:00: MOUTH [place] -CON M) 10 00 EVERY DAY mEq tablet [facility] potassium Yes TAKE 1 Univer s chloride 4-22 TABLET BY ity of (K-DUR,KLOR 00:00: MOUTH [place] -CON M) 10 00 EVERY DAY mEq tablet [facility] candesartan Yes take 1 Univ ers (ATACAND) 4 2-22 tablet ity of mg tablet 00:00: [place]igh [place] [facility] candesartan Yes take 1 Univ ers (ATACAND) 4 2-22 tablet ity of mg tablet 00:00: [place]igh [place] 00 [facility] Immunizations Ordered Filled Immunization Date Status Comments [facility] e Immunization Name Name Influenza, 2018-02-28 Completed University of Unspecified 00:00:00 [place] MD Villatoro rachel [facility] Influenza, 2018-02-28 Completed University of Unspecified 00:00:00 [place] MD Villatoro rachel [facility] pneumococcal 2013-10-28 Completed [facility] 23-valent vaccine 01:27:00 Vital Signs Vital Name Observation Time Observation Value Comments Source Systolic blood 2021-02-04 21:00:00 121 mm[Hg] [facility] Diastolic blood 2021-02-04 21:00:00 69 mm[Hg] [facility] Heart rate 2021-02-04 21:00:00 68 /min [facility] Respiratory rate 2021-02-04 21:00:00 20 /min General acute hospital Oxygen saturation in 2021-02-04 21:00:00 98 /min [facility] Arterial blood by [facility] Pulse oximetry Branch Body temperature 2021-02-04 18:30:00 36.44 [facility] Body weight 2021-02-04 18:30:00 90.719 kg [facility] WEIGHT 2019-12-20 09:44:00 87.9 kg Temperature Oral (F) 2019-05-05 18:10:00 97.2 F [facility] Heart Rate 2019-05-05 18:10:00 Memorial Vik Respitory Rate 2019-05-05 18:10:00 Memori al [place] Systolic (mm Hg) 2019-05-05 18:10:00 Chema rial Vik Diastolic (mm Hg) 2019-05-05 18:10:00 Mem orial [place] Temperature Oral (F) 2019-05-05 14:15:00 97.3 F [facility] Vik Heart Rate 2019-05-05 14:15:00 [facility] [place] Respitory Rate 2019-05-05 14:15:00 Memori al [place] Systolic (mm Hg) 2019-05-05 14:15:00 Chema rial Vik Diastolic (mm Hg) 2019-05-05 14:15:00 Mem orial Vik Temperature Oral (F) 2019-05-05 10:24:00 97.3 F [facility] Vik Heart Rate 2019-05-05 10:24:00 [facility] Vik Respitory Rate 2019-05-05 10:24:00 Memori al Vik Systolic (mm Hg) 2019-05-05 10:24:00 Chema rial [place] Diastolic (mm Hg) 2019-05-05 10:24:00 Mem orial Vik Height 2019-05-05 04:10:00 187.96 cm [facility] [place] Weight 2019-05-05 04:10:00 [facility] Vik BMI Calculated 2019-05-05 04:10:00 Memori al [place] Procedures Procedure Date / Time Performed Performing Clinician Sourc e URINALYSIS 2021-02-04 19:29:00 Antonia Griffiths [facility] COMP. METABOLIC PANEL 2021-02-04 19:28:00 Antonia Griffiths [facility] ([id number]) Medical Branch CBC WITH DIFF 2021-02-04 19:28:00 Antonia Griffiths [facility] COVID-19 (ID NOW RAPID 2021-02-04 19:28:00 Antonia Griffiths [facility] TESTING) Medical Branch NOTICE OF PRIVACY 2021-02-04 18:23:58 Doctor Unassigned, No Univ [facility] PRACTICES Name Medical Branch CONSENT/REFUSAL FOR 2021-02-04 18:23:46 Doctor Unassigned, No [facility] DIAGNOSIS AND Name Medical Branch TREATMENT Cataract surgery [facility] Knee joint operation [facility] Plan of Care Planned Activity Planned Date Details Comments Source Future Scheduled 2021-12-08 COVID-19 Vaccination Uni [facility] [place] Test 12:57:58 (#1) [code = COVID-19 MD [facility] Vaccination (#1)] Center Future Scheduled 2021-10-19 COVID-19 Vaccination Uni [facility] [place] Test 03:53:12 (1) [code = COVID-19 Irving rson [facility] Vaccination (1)] Center Encounters Start End Encounter Admission Attending Care Care Encounter Source Date/Time Date/Time Type Type Clinicians Facility Department ID 2021-11-26 Outpatient [facility] [id number] [place] 11:17:15 [id number] [facility] 2021-03-29 Emergency [facility] [id number] Univers 21:33:06 ity of [facility] 2020-12-08 Outpatient [facility] [id number] [place] 09:50:[facility] 2020-10-03 Outpatient JOHN [facility] [id number] [place] 03:25:33 LACAP, [facility] 2019-12-16 Outpatient MDA MDA [id number] 07:06:56 Prisca sanchez 2021-07-23 2021-07-23 Telephone Julio, 1.2.840.1 [id number] Univers 00:00:00 00:00:00 Shalonda Munoz [id number] ity of 3.412.2.7 [place] .3.523605 MD Miles8 [facility] 2021-07-23 2021-07-23 Telephone Julio, 1.2.840.1 [id number] Univers 00:00:00 00:00:00 Shalonda Munoz 20878.1.1 ity of 3.412.2.7 [place] .3.876428 [facility] 2021-06-10 2021-06-10 Orders Benjamín, 1.2.840.1 [id number] Univers 00:00:00 00:00:00 Only Aditi Hussein 46373.1.1 it y of 3.412.2.7 [place] .3.477176 MD Chung [facility] 2021-06-10 2021-06-10 Orders Benjamín, 1.2.840.1 [id number] Univers 00:00:00 00:00:00 Only Aditi Hussein 12871.1.1 it y of 3.412.2.7 [place] .3.487212 .8 [facility] 2021-02-04 2021-02-04 Emergency [facility] [id number] Univers 13:39:00 18:19:00 Antonia S [place] 350.1.13.10 i ty of [place] 4.2.7.2.686 [facility] [id number] [facility] 084 Branch 2021-02-04 2021-02-04 Orders Doctor MELTON [id number] Univers 00:00:00 00:00:00 Only Unassigned, FARZANA 350.1.13.10 ity of [place] [facility] 4.2.7.2.686 Jose [id number] [facility] 009 Branch 2021-02-02 2021-02-02 Telephone Alison Mcgarry 1.2.840.1 [id number] Univers 00:00:00 00:00:00 84954.1.1 ity of 3.412.2.7 [place] .3.454697 .8 [facility] 2021-02-02 2021-02-02 Telephone Alison Mcgarry 1.2.840.1 [id number] Univers 00:00:00 00:00:00 58858.1.1 ity of 3.412.2.7 [place] .3.401110 MD Miles8 [facility] 2020-10-13 2020-10-17 Inpatient E TO [facility] [id number] [facility] 17:23:00 10:25:00 KAREEM 2020-06-04 2020-06-04 Outpatient BIGG [facility] CAR 7501 [facility] 08:45:00 23:59:00 KATELYN 2020-01-25 2020-01-25 Telephone LINH Jennings [id number] 00:00:00 00:00:00 Ashley YANES 350.1.13.10 [facility] 4.2.7.2.686 [id number] [facility] 2020-01-25 2020-01-25 Telephone LINH Jenninsg [id number] [facility] 00:00:00 00:00:00 Ashley YANES 350.1.13.10 i ty [facility] 4.2.7.2.686 Jose as [id number] [address] 2020-01-24 2020-01-24 Outpatient R BOOM [facility] [id number] Univers 16:40:00 16:40:00 MARCELA mooney [facility] 2020-01-24 2020-01-24 Laboratory Lab, [facility] [id number] 14:45:15 15:30:48 Only Fam Pob I Health 350.1.13.10 [place] 4.2.7.2.686 Professio [id number] [place] [address] Office [facility] 2020-01-24 2020-01-24 Laboratory Lab, [facility] Fam Pob I [facility] 1.2. [id number] [facility] 14:45:15 15:30:48 Only Marcela Obrien 350.1.13.10 ity [facility] 4.2.7.2.686 Jose as Professio [id number] Al dical [address] Office [facility] 2020-01-24 2020-01-24 Outpatient R [facility] [id number] Univers 15:15:00 15:15:00 [id number] ity [facility] 2019-12-20 2019-12-20 Outpatient MAITE MARCIAL MDA MDA [id number] 09:37:45 11:58:12 NAHID sanchez 2019-12-20 2019-12-20 Outpatient MAITE MARCIAL MDA MDA [id number] 10:47:51 10:47:51 NAHID sanchez 2019-12-20 2019-12-20 Outpatient MAITE MARCIAL MDA MDA [id number] 00:00:00 00:00:00 NAHID sanchez 2019-12-18 2019-12-18 Outpatient MAITE GRANT MDA MDA [id number] 09:29:08 23:59:00 ADITI sanchez 2019-12-16 2019-12-16 Outpatient MAITE GRANT MDA MDA [id number] 06:25:15 06:25:15 ADITI sanchez 2019-05-05 2019-05-05 Observatio nullFlavo [facility] [id number] Memoria 04:57:00 22:54:00 n r Vik [address] [facility] 2019-05-04 2019-05-04 Outpatient U [facility]BL MED [id number] [facility] 22:57:00 22:57:00 2013-12-06 2013-12-07 Outpatient nullFlavo [facility] [id number] Memoria 18:00:00 04:59:00 r [place] 00 l JENISE Chery 2013-12-06 2013-12-07 Outpt Diag nullFlavo [facility] [id number] Memoria 15:19:00 04:59:00 Services r Outpatient 00 l Imaging [facility] Results Test Description Test Time Test Comments Results Result Comments Source COMP. METABOLIC PANEL ([id number]) 2021-02-04 20:24:39 Test Item Value Reference Range Interpretation Comme nts NA (test code = 7037652933) 136 mmol/L 135-145 K (test code = 9178456970) 4.2 mmol/L 3.5-5.0 CL (test code = 8959803496) 102 mmol/L 98-108 CO2 TOTAL (test code = 7203735344) 21 mmol/L 23-31 L AGAP (test code = 9024413458) 2-16 BUN (test code = 3617576526) 27 mg/dL 7-23 H GLUCOSE (test code = 2478925942) 133 mg/dL 70-110 H CREATININE (test code = 1.27 mg/dL 0.60-1.25 H 4940710447) TOTAL BILI (test code = 1.6 mg/dL 0.1-1.1 H 8900571109) CALCIUM (test code = 9190734494) 9.1 mg/dL 8.6-10.6 T PROTEIN (test code = 9572231379) 6.9 g/dL 6.3-8.2 ALBUMIN (test code = 5755473301) 3.7 g/dL 3.5-5.0 ALK PHOS (test code = 4467870078) 78 U/L 34-122 ALTv (test code = 1742-6) 34 U/L 5-50 AST(SGOT) (test code = 3399902777) 43 U/L 13-40 H eGFR (test code = 3317666557) mL/min/1.73m2 DANIEL (test code = DANIEL) Association [...] tests). Lab Interpretation (test code = Abnormal 20895-7) [facility]. METABOLIC PANEL ([id number])2021-02-04 20:24:39 Test Item Value Reference Range Interpretation Comments NA (test code = 136 mmol/L 135-145 9709515075) K (test code = 4.2 mmol/L 3.5-5.0 9299270386) CL (test code = 102 mmol/L 98-108 9663272014) CO2 TOTAL (test code = 21 mmol/L 23-31 L 2997572476) AGAP (test code = 2-16 2656905271) BUN (test code = 27 mg/dL 7-23 H 1619222138) GLUCOSE (test code = 133 mg/dL 70-110 H 2828802021) CREATININE (test code = 1.27 mg/dL 0.60-1.25 H 8084646203) TOTAL BILI (test code = 1.6 mg/dL 0.1-1.1 H 2088054378) CALCIUM (test code = 9.1 mg/dL 8.6-10.6 1491944671) T PROTEIN (test code = 6.9 g/dL 6.3-8.2 4294491908) ALBUMIN (test code = 3.7 g/dL 3.5-5.0 5872831286) ALK PHOS (test code = 78 U/L 34-122 0696895032) ALTv (test code = 34 U/L 5-50 1742-6) AST(SGOT) (test code = 43 U/L 13-40 H 8822510430) eGFR (test code = mL/min/1.73m2 0175062087) DANIEL (test code = DANIEL) Association of [...] tests). Lab Interpretation Abnormal (test code = 89110-6) [facility]11 Test Item Value Reference Range Interpretation Comments APPEARANCE (test code = Clear Clear 1858215949) COLOR (test code = Yellow Yellow 9839167678) PH (test code = 4.8-8.0 7116502612) SP GRAVITY (test code = 1.003-1.030 4361212654) GLU U QUAL (test code = Normal Normal 9761816165) BLOOD (test code = Negative Negative 9249748405) KETONES (test code = Negative Negative 4113086730) PROTEIN (test code = Negative Negative 2887-8) UROBILIN (test code = Normal Normal 4174583595) BILIRUBIN (test code = Negative Negative 4894662481) NITRITE (test code = Negative Negative 7701194054) LEUK DANELLE (test code = Negative Negative 2163866296) RBC/HPF (test code = See_Comment [Autom ated message] 9828431756) The system [email or web address] generated this result transmitted ref erence range: 0 - 3 HP F. The reference range was not used to int erpret this result as normal/abnormal . WBC/HPF (test code = See_Comment [Autom ated message] 5160894216) The system [email or web address] generated this result transmitted ref erence range: 0 - 5 HP F. The reference range was not used to int erpret this result as normal/abnormal . BACTERIA (test code = Negative Negative 2085973652) MUCOUS (test code = Slight Negative LPF A 9015700769) HYAL CAST (test code = See_Comment H [Aut omated message] 6220252099) The system [email or web address] generated this result transmitted ref erence range: <=2 LPF. The reference range was not used to int erpret this result as normal/abnormal . Lab Interpretation (test Abnormal code = 76140-8) [facility] 19:52:11 Test Item Value Reference Range Interpretation Comments APPEARANCE (test code = Clear Clear 8776591027) COLOR (test code = Yellow Yellow 2972174469) PH (test code = 4.8-8.0 6089282371) SP GRAVITY (test code = 1.003-1.030 7688618254) GLU U QUAL (test code = Normal Normal 7019502047) BLOOD (test code = Negative Negative 6374999674) KETONES (test code = Negative Negative 7275629925) PROTEIN (test code = Negative Negative 2887-8) UROBILIN (test code = Normal Normal 6628282022) BILIRUBIN (test code = Negative Negative 0021181553) NITRITE (test code = Negative Negative 6034280087) LEUK DANELLE (test code = Negative Negative 0508989153) RBC/HPF (test code = See_Comment [Autom ated message] 3356023805) The system [email or web address] generated this result transmitted ref erence range: 0 - 3 HP F. The reference range was not used to int erpret this result as normal/abnormal . WBC/HPF (test code = See_Comment [Autom ated message] 6273204475) The system [email or web address] generated this result transmitted ref erence range: 0 - 5 HP F. The reference range was not used to int erpret this result as normal/abnormal . BACTERIA (test code = Negative Negative 0560305901) MUCOUS (test code = Slight Negative LPF A 9592682652) HYAL CAST (test code = See_Comment H [Aut omated message] 0102650440) The system [email or web address] generated this result transmitted ref erence range: <=2 LPF. The reference range was not used to int erpret this result as normal/abnormal . Lab Interpretation (test Abnormal code = 75152-5) [facility]-04 19:49:28 Test Item Value Reference Range Interpretation Comments SARS-CoV-2 Rapid ID NOW Positive Not Detected A (test code = 04659-4) DANIEL (test code = DANIEL) ID NOW COVID-19 Assay is an isothermal nucleic acid amplification test intended for the qualitative detection of nucleic acid from SARS-CoV-2 viral RNA in nasopharyngeal (GERIATRIC NURSING ASSISTANT) specimens. It is used under Emergency Use [...] indicated. Lab Interpretation Abnormal (test code = 27874-0) [facility]2021-02-04 19:49:28 Test Item Value Reference Range Interpretation Comments SARS-CoV-2 Rapid ID NOW Positive Not Detected A (test code = 11514-9) DANIEL (test code = DANIEL) ID NOW COVID-19 Assay is an isothermal nucleic acid amplification test intended for the qualitative detection of nucleic acid from SARS-CoV-2 viral RNA in nasopharyngeal (GERIATRIC NURSING ASSISTANT) specimens. It is used under Emergency Use [...] indicated. Lab Interpretation Abnormal (test code = 20487-3) [facility] WITH [id number] 19:40:04 Test Item Value Reference Range Interpretation Comments WBC (test code = See_Comment [Automated 7562-2) message] The sy stem which generated this result transmitted reference range : 4.20 - 10.70 10*3/?L. The reference range was not used to interpret this result as normal/abnormal . RBC (test code = See_Comment [Automated 983-1) message] The sy stem which generated this [...] RDW-SD (test code = 45.6 fL 38.5-51.6 50958-7) RDW-CV (test code = 14.1 % 12.1-15.4 788-0) PLT (test code = See_Comment [Automated 777-3) message] The sy stem which generated this result transmitted reference range : 150 - 328 10*3/ ?L. The reference r shayna was not used to interpret this result as normal/abnormal . MPV (test code = 10.8 fL 9.8-13.0 92513-5) NRBC/100 WBC (test See_Comment [Automat ed code = [id number]) message] The system which generated this result transmitted reference range : 0.0 - 10.0 /100 WBCs. The refer ence range was not u sed to interpret th is result as normal/abnormal . NRBC x10^3 (test code <0.01 See_Comment [Auto mated = [id number]) message] The s ystem which generated this result transmitted reference range : 10*3/?L. The reference range was not used to interpret this result as normal/abnormal . GRAN MAT (NEUT) % 73.3 % (test code = 770-8) IMM GRAN % (test code 0.60 % = 5438011088) LYMPH % (test code = 10.4 % 736-9) MONO % (test code = 15.2 % 5905-5) EOS % (test code = 0.1 % 713-8) BASO % (test code = 0.4 % 706-2) GRAN MAT x10^3(ANC) 6.04 10*3/uL 1.99-6.95 (test code = 2424512717) IMM GRAN x10^3 (test 0.05 10*3/uL 0.00-0.06 code = 2031415116) LYMPH x10^3 (test code 0.86 10*3/uL 1.09-3.23 L = 731-0) MONO x10^3 (test code 1.25 10*3/uL 0.36-1.02 H = 742-7) EOS x10^3 (test code = <0.03 0.06-0.53 L 711-2) BASO x10^3 (test code 0.03 10*3/uL 0.01-0.09 = 704-7) Lab Interpretation Abnormal (test code = 26092-2) [facility] WITH [id number] 19:40:04 Test Item Value Reference Range Interpretation Comments WBC (test code = See_Comment [Automated 3390-2) message] The sy stem which generated this result transmitted reference range : 4.20 - 10.70 10*3/?L. The reference range was not used to interpret this result as normal/abnormal . RBC (test code = See_Comment [Automated 719-8) message] The sy stem which generated this [...] RDW-SD (test code = 45.6 fL 38.5-51.6 32341-5) RDW-CV (test code = 14.1 % 12.1-15.4 788-0) PLT (test code = See_Comment [Automated 317-3) message] The sy stem which generated this result transmitted reference range : 150 - 328 10*3/ ?L. The reference r shayna was not used to interpret this result as normal/abnormal . MPV (test code = 10.8 fL 9.8-13.0 42172-7) NRBC/100 WBC (test See_Comment [Automat ed code = 3620309723) message] The system which generated this result transmitted reference range : 0.0 - 10.0 /100 WBCs. The refer ence range was not u sed to interpret th is result as normal/abnormal . NRBC x10^3 (test code <0.01 See_Comment [Auto mated = 7126601571) message] The s ystem which generated this result transmitted reference range : 10*3/?L. The reference range was not used to interpret this result as normal/abnormal . GRAN MAT (NEUT) % 73.3 % (test code = 770-8) IMM GRAN % (test code 0.60 % = 0064057646) LYMPH % (test code = 10.4 % 736-9) MONO % (test code = 15.2 % 5905-5) EOS % (test code = 0.1 % 713-8) BASO % (test code = 0.4 % 706-2) GRAN MAT x10^3(ANC) 6.04 10*3/uL 1.99-6.95 (test code = 6377336532) IMM GRAN x10^3 (test 0.05 10*3/uL 0.00-0.06 code = 4591575575) LYMPH x10^3 (test code 0.86 10*3/uL 1.09-3.23 L = 731-0) MONO x10^3 (test code 1.25 10*3/uL 0.36-1.02 H = 742-7) EOS x10^3 (test code = <0.03 0.06-0.53 L 711-2) BASO x10^3 (test code 0.03 10*3/uL 0.01-0.09 = 704-7) Lab Interpretation Abnormal (test code = 77315-7) [facility] [id number] 14:46:00 Test Item Value Reference Range Interpretation Comments Troponin-I (test code no gt See_Comment [Auto mated message] The = Troponin-I) system which g enerated this result transmit danica reference range : <=0.40. The reference r shayna was not used to interpr et this result as zara l/abnormal. [facility]XkjrwxgERXMQRKCEF2775-28-92 08:56:00 Test Item Value Reference Range Interpretation Comments MCV (test code = MCV) 89.9 80.0-94.0 [facility]andVrwefdvFOFERWHICD8834-68-08 08:56:00 Test Item Value Reference Range Interpretation Comments MCH (test code = MCH) 30.3 pg 27.0-31.0 [facility]andJiqdskbOQRSJOSXMH4502-75-91 08:56:00 Test Item Value Reference Range Interpretation Comments MCHC (test code = MCHC) 33.7 32.0-36.0 [facility]andSfplnvmPRDAPAPCQX2256-69-63 08:56:00 Test Item Value Reference Range Interpretation Comments RDW (test code = RDW) 14.5 11.5-14.5 [facility]andRgfzqfhPXVAFHTVOT5453-03-06 08:56:00 Test Item Value Reference Range Interpretation Comments Platelet (test code = Platelet) 243 133-450 [facility]andMkekakmYWPNDWEDQM5123-88-75 08:56:00 Test Item Value Reference Range Interpretation Comments MPV (test code = MPV) 8.6 7.4-10.4 [facility]andJijlkfaEJLOOCKGMH7430-12-73 08:56:00 Test Item Value Reference Range Interpretation Comments Segs (test code = Segs) 67.4 45.0-75.0 [facility]andVahnpkbNHLHCLXUYD5186-56-49 08:56:00 Test Item Value Reference Range Interpretation Comments Lymphocytes (test code = Lymphocytes) 19.8 20.0-40.0 [facility]andXxqcpdxOVTKBYUNBD9529-78-02 08:56:00 Test Item Value Reference Range Interpretation Comments Monocytes (test code = Monocytes) 9.8 2.0-12.0 [facility]andDreowofDLQLOFGGEZ0231-11-25 08:56:00 Test Item Value Reference Range Interpretation Comments Eosinophils (test code = 2.0 See_Comment [A utomated message] The Eosinophils) system which ge nerated this result tra nsmitted reference range : <=4.0. The reference r shayna was not used to int erpret this result as normal/abnormal . [facility]andPaciluoHGMPNPVJFA1411-24-77 08:56:00 Test Item Value Reference Range Interpretation Comments Basophils (test code = 1.0 See_Comment [Aut omated message] The Basophils) system which ge nerated this result tra nsmitted reference range : <=1.0. The reference r shayna was not used to int erpret this result as normal/abnormal . [facility]andOnlowswSNJZIOXVQP7661-35-04 08:56:00 Test Item Value Reference Range Interpretation Comments Neutrophils # (test code = Neutrophils 5.1 1.5-8.1 #) [facility]andVbxvwezCFSBQFFDNR6015-17-72 08:56:00 Test Item Value Reference Range Interpretation Comments Lymphocytes # (test code = Lymphocytes 1.5 1.0-5.5 #) [facility]andLmgpcwhHRKKTZXGZX4029-72-50 08:56:00 Test Item Value Reference Range Interpretation Comments Monocytes # (test code 0.7 See_Comment [Aut omated message] The = Monocytes #) system which generated this result tra nsmitted reference range : <=0.8. The reference r shayna was not used to int erpret this result as normal/abnormal . [facility]andCkybeehHSZAQOCWFX8715-71-40 08:56:00 Test Item Value Reference Range Interpretation Comments Eosinophils # (test code 0.2 See_Comment [A utomated message] The = Eosinophils #) system whic h generated this result tra nsmitted reference range : <=0.5. The reference r shayna was not used to int erpret this result as normal/abnormal . [facility]andVxjkpdxBIEHQANSUH9016-57-07 08:56:00 Test Item Value Reference Range Interpretation Comments Basophils # (test code 0.1 See_Comment [Aut omated message] The = Basophils #) system which generated this result tra nsmitted reference range : <=0.2. The reference r shayna was not used to int erpret this result as normal/abnormal . [facility]:56:00 Test Item Value Reference Range Interpretation Comments CHD Risk (test code = CHD Risk) 4.74 1 4.00-7.30 [facility]FuknwqkTXAFBT2400-09-70 08:56:00 Test Item Value Reference Range Interpretation Comments Chol (test code = Chol) 161 [facility]GknrhsmOSWSET4507-76-55 08:56:00 Test Item Value Reference Range Interpretation Comments Trig (test code = Trig) 109 [facility]ad[facility]jkMWURSK0036-[facility]-35 08:56:00 Test Item Value Reference Range Interpretation Comments HDL (test code = HDL) 34 [facility]InxxmxzNTIIKV5991-87-89 08:56:00 Test Item Value Reference Range Interpretation Comments LDL (Calculated) (test code = LDL 105 (Calculated)) [facility]AvjfjskMRQWWK9039[facility]:56[facility]00 Test Item Value Reference Range Interpretation Comments VLDL (test code = VLDL) [address] [facility] XEDBDYQWS1904-40-26 08:56:00 Test Item Value Reference Range Interpretation Comments Hgb A1C (test code = Hgb A1C) 8.9 [facility] IEUXKFM9375-11-80 08:56:00 Test Item Value Reference Range Interpretation Comments Troponin-I (test code no gt See_Comment [Auto mated message] The = Troponin-I) system which g enerated this result transmit danica reference range : <=0.40. The reference r shayna was not used to interpr et this result as zara l/abnormal. [facility] Alice[facility]rip[facility] [id number] 08:56:00 Test Item Value Reference Range Interpretation Comments Glucose Lvl (test code = Glucose Lvl) 263 70-99 [facility] [id number] 08:56:00 Test Item Value Reference Range Interpretation Comments BUN (test code = BUN) 15 7-22 [facility] [id number] 08:56:00 Test Item Value Reference Range Interpretation Comments Creatinine Lvl (test code = Creatinine 0.88 0.50-1.40 Lvl) [facility] RFWQZ4882-60-74 08:56:00 Test Item Value Reference Range Interpretation Comments Sodium Lvl (test code = Sodium Lvl) 142 135-145 [facility] [id number] 08:56:00 Test Item Value Reference Range Interpretation Comments Potassium Lvl (test code = Potassium 3.7 3.5-5.1 Lvl) [facility] [id number] 08:56:00 Test Item Value Reference Range Interpretation Comments Chloride Lvl (test code = Chloride Lvl) 111 95-109 [facility] [id number] 08:56:00 Test Item Value Reference Range Interpretation Comments CO2 (test code = CO2) 24 24-32 [facility] IFSLV4523-52-17 08:56:00 Test Item Value Reference Range Interpretation Comments Calcium Lvl (test code = Calcium Lvl) 8.4 8.5-10.5 [facility] [id number] 08:56:00 Test Item Value Reference Range Interpretation Comments eGFR (test code = eGFR) 79 [facility] [id number] 08:56:00 Test Item Value Reference Range Interpretation Comments AGAP (test code = AGAP) 10.7 10.0-20.0 [facility]JregawlOZOECBFXGC5843-90-68 08:56:00 Test Item Value Reference Range Interpretation Comments WBC (test code = WBC) 7.6 3.7-10.4 [facility]andXdctzhpYWXXXTBGBG9172-53-74 08:56:00 Test Item Value Reference Range Interpretation Comments RBC (test code = RBC) 4.56 4.70-6.10 [facility]andQnmpruzOIXPTKVQAF0502-71-62 08:56:00 Test Item Value Reference Range Interpretation Comments Hgb (test code = Hgb) 13.8 14.0-18.0 [facility] RegionMzciuehQIIJHQNBDM7360-98-97 08:56:00 Test Item Value Reference Range Interpretation Comments Hct (test code = Hct) 41.0 42.0-54.0 [facility] DRLVGVG0524-49-28 08:31:00 Test Item Value Reference Range Interpretation Comments Troponin-I (test code no gt See_Comment [Auto mated message] The = Troponin-I) system which g enerated this result transmit danica reference range : <=0.40. The reference r shayna was not used to interpr et this result as zara l/abnormal. [facility]2019-12-08 08:31:00 Test Item Value Reference Range Interpretation Comments Glucose Lvl (test code = Glucose Lvl) 267 70-99 [facility]2019-12-08 08:31:00 Test Item Value Reference Range Interpretation Comments BUN (test code = BUN) 15 7-22 [facility]2019-12-08 08:31:00 Test Item Value Reference Range Interpretation Comments Creatinine Lvl (test code = Creatinine 0.99 0.50-1.40 Lvl) [facility]2019-12-08 08:31:00 Test Item Value Reference Range Interpretation Comments Sodium Lvl (test code = Sodium Lvl) 143 135-145 [facility]2019-12-08 08:31:00 Test Item Value Reference Range Interpretation Comments Potassium Lvl (test code = Potassium 4.1 3.5-5.1 Lvl) [facility]2019-12-08 08:31:00 Test Item Value Reference Range Interpretation Comments Chloride Lvl (test code = Chloride Lvl) 110 95-109 [facility]2019-12-08 08:31:00 Test Item Value Reference Range Interpretation Comments CO2 (test code = CO2) 27 24-32 [facility]2019-12-08 08:31:00 Test Item Value Reference Range Interpretation Comments Calcium Lvl (test code = Calcium Lvl) 8.9 8.5-10.5 [facility]2019-12-08 08:31:00 Test Item Value Reference Range Interpretation Comments Total Protein (test code = Total 6.1 6.4-8.4 Protein) [facility]2019-12-08 08:31:00 Test Item Value Reference Range Interpretation Comments Albumin Lvl (test code = Albumin Lvl) 3.4 3.5-5.0 [facility]2019-12-08 08:31:00 Test Item Value Reference Range Interpretation Comments ALT (test code = ALT) 16 See_Comment [Auto mated message] The system which ge nerated this result transmit danica reference range : <=65. The reference range was not used to interpr et this result as zara l/abnormal. [facility]2019-12-08 08:31:00 Test Item Value Reference Range Interpretation Comments AST (test code = AST) 10 See_Comment [Auto mated message] The system which ge nerated this result transmit danica reference range : <=37. The reference range was not used to interpr et this result as zara l/abnormal. [facility]2019-12-08 08:31:00 Test Item Value Reference Range Interpretation Comments Alk Phos (test code = Alk Phos) 53 39-136 [facility]2019-12-08 08:31:00 Test Item Value Reference Range Interpretation Comments Bili Total (test code = Bili Total) 0.7 0.2-1.3 [place] 725439-12-08 08:31:00 Test Item Value Reference Range Interpretation Comments eGFR (test code = eGFR) 70 [facility]2019-12-08 08:31:00 Test Item Value Reference Range Interpretation Comments AGAP (test code = AGAP) 10.1 10.0-20.0 [facility]2019-12-08 08:31:00 Test Item Value Reference Range Interpretation Comments B/C Ratio (test code = B/C Ratio) 15 1 6-25 [place] 725439-12-08 08:31:00 Test Item Value Reference Range Interpretation Comments Globulin (test code = Globulin) 2.7 2.7-4.2 [facility]2019-12-08 08:31:00 Test Item Value Reference Range Interpretation Comments A/G Ratio (test code = A/G Ratio) 1.3 1 0.7-1.6 [facility]andDssxjbzWNTQDFBAQF7417-77-42 08:31:00 Test Item Value Reference Range Interpretation Comments Segs (test code = Segs) 67.3 45.0-75.0 [place] 994739-12-08 08:31:00 Test Item Value Reference Range Interpretation Comments Lymphocytes (test code = Lymphocytes) 20.3 20.0-40.0 [facility]andQjximzjXAAGGEDSTD6709-40-62 08:31:00 Test Item Value Reference Range Interpretation Comments Monocytes (test code = Monocytes) 9.1 2.0-12.0 [facility]andBslqesdELAAABSMKD8477-19-07 08:31:00 Test Item Value Reference Range Interpretation Comments Eosinophils (test code = 2.4 See_Comment [A utomated message] The Eosinophils) system which nerated this result tra nsmitted reference range : <=4.0. The reference r shayna was not used to int erpret this result as normal/abnormal . [facility]andFndwxbhXAKQSGJNFL0621-67-25 08:31:00 Test Item Value Reference Range Interpretation Comments Basophils (test code = 0.9 See_Comment [Aut omated message] The Basophils) system which ge nerated this result tra nsmitted reference range : <=1.0. The reference r shayna was not used to int erpret this result as normal/abnormal . [place] 994739-12-08 08:31:00 Test Item Value Reference Range Interpretation Comments Neutrophils # (test code = Neutrophils 5.4 1.5-8.1 #) [facility]andEbjnvgaIQGOATZJXZ5581-91-45 08:31:00 Test Item Value Reference Range Interpretation Comments Lymphocytes # (test code = Lymphocytes 1.6 1.0-5.5 #) [facility]andUaozdlnEIWDJSQMWL7500-53-04 08:31:00 Test Item Value Reference Range Interpretation Comments Monocytes # (test code 0.7 See_Comment [Aut omated message] The = Monocytes #) system which generated this result tra nsmitted reference range : <=0.8. The reference r shayna was not used to int erpret this result as normal/abnormal . [facility]andXmmmrkvFQBEWUVNUY4600-44-00 08:31:00 Test Item Value Reference Range Interpretation Comments Eosinophils # (test code 0.2 See_Comment [A utomated message] The = Eosinophils #) system whic h generated this result tra nsmitted reference range : <=0.5. The reference r shayna was not used to int erpret this result as normal/abnormal . [facility]andLormropOXLDSNBEXN8862-29-28 08:31:00 Test Item Value Reference Range Interpretation Comments Basophils # (test code 0.1 See_Comment [Aut omated message] The = Basophils #) system which generated this result tra nsmitted reference range : <=0.2. The reference r shayna was not used to int erpret this result as normal/abnormal . [facility]andBnjyleoPBATNPHHJT0693-21-22 08:31:00 Test Item Value Reference Range Interpretation Comments WBC (test code = WBC) 8.0 3.7-10.4 [facility]andUgjgijpJCFAWDEHOS3484-27-57 08:31:00 Test Item Value Reference Range Interpretation Comments RBC (test code = RBC) 4.65 4.70-6.10 [facility]andXsipvgcXAXMPVLVCM0417-68-72 08:31:00 Test Item Value Reference Range Interpretation Comments Hgb (test code = Hgb) 14.0 14.0-18.0 [facility]andLtzalyzGXWGPLLMWJ5307-46-39 08:31:00 Test Item Value Reference Range Interpretation Comments Hct (test code = Hct) 41.8 42.0-54.0 [facility]andKsybgyxGJMZBBANVQ7336-08-46 08:31:00 Test Item Value Reference Range Interpretation Comments MCV (test code = MCV) 89.8 80.0-94.0 [facility] RegionIausxqhWSBXGXUEMU5682-89-50 08:31:00 Test Item Value Reference Range Interpretation Comments MCH (test code = MCH) 30.1 pg 27.0-31.0 [facility] RegionLgnsmtyGTDDVWLPWV9986-73-57 08:31:00 Test Item Value Reference Range Interpretation Comments MCHC (test code = MCHC) 33.5 32.0-36.0 [facility]andDtavfpcICKDTYASVC2014-90-57 08:31:00 Test Item Value Reference Range Interpretation Comments RDW (test code = RDW) 14.5 11.5-14.5 [facility]andKxarfwzAJCBTMRXHQ8412-09-29 08:31:00 Test Item Value Reference Range Interpretation Comments Platelet (test code = Platelet) 249 133-450 [facility]andDkchhevYOPOFOHPNU9783-93-03 08:31:00 Test Item Value Reference Range Interpretation Comments MPV (test code = MPV) 8.2 7.4-10.4 [facility]andOauzmlmYSDXWHVHAX8418-74-61 08:31:00 Test Item Value Reference Range Interpretation Comments PTT (test code = PTT) 31.5 s 22.9-35.8 [facility] RegionFwnjpddCEVYNEIJWB1554-61-58 08:31:00 Test Item Value Reference Range Interpretation Comments INR (test code = INR) 1.15 1 0.85-1.17 [facility]andXdsllsuGVOXTRBOEU8911-58-23 08:31:00 Test Item Value Reference Range Interpretation Comments PT (test code = PT) 14.5 s 12.0-14.7 [facility]uvobwpBVHNQHDUJX5612-82-06 08:31:00 Test Item Value Reference Range Interpretation Comments Treponemal Ab (test code Non-Reactive = Treponemal Ab) *NA*(05/05/19 2:31 AM) [facility] AND [id number] 08:31:00 Test Item Value Reference Range Interpretation Comments UA Turbidity (test code = Clear (05/05/19 2:31 UA Turbidity) AM) [facility] AND [id number] 08:31:00 Test Item Value Reference Range Interpretation Comments UA Spec Grav (test code = UA Spec 1.006 1 Grav) [facility] AND [id number] 08:31:00 Test Item Value Reference Range Interpretation Comments UA pH (test code = UA pH) 7.0 1 5.0-8.0 [facility] AND [id number] 08:31:00 Test Item Value Reference Range Interpretation Comments UA Protein (test code = UA Negative mg/dL Protein) [facility] AND [id number] 08:31:00 Test Item Value Reference Range Interpretation Comments UA Ketones (test code = UA Negative mg/dL Ketones) [facility] AND KYOEY4958-64-23 08:31:00 Test Item Value Reference Range Interpretation Comments UA Bili (test code = Negative *NA*(05/05/19 UA Bili) 2:31 AM) [facility] AND [id number] 08:31:00 Test Item Value Reference Range Interpretation Comments UA Blood (test code = Negative (05/05/19 2:31 UA Blood) AM) [facility] AND [id number] 08:31:00 Test Item Value Reference Range Interpretation Comments UA Nitrite (test code Negative (05/05/19 2:31 = UA Nitrite) AM) [facility] AND [id number] 08:31:00 Test Item Value Reference Range Interpretation Comments UA Leuk Est (test Negative (05/05/19 2:31 code = UA Leuk Est) AM) [facility] AND [id number] 08:31:00 Test Item Value Reference Range Interpretation Comments UA Sq Epi (test code = UA Sq Epi) None Seen [facility] AND [id number] 08:31:00 Test Item Value Reference Range Interpretation Comments UA Color (test code = UA Color) STRAW [facility] AND [id number] 08:31:00 Test Item Value Reference Range Interpretation Comments UA Glucose (test code = UA Glucose) 150 [facility] AND CKMZJ0602-08-79 08:31:00 Test Item Value Reference Range Interpretation Comments UA Urobilinogen (test code = UA <=1.0 mg/dL 0.1-1.0 Urobilinogen) [facility]
[2022-01-16 05:39] LABS: Urine Blood Trace-intact (Negative); Urine Glucose Trace (Negative); Urine Protein Negative (Negative); Urine Specific Gravity 1.015 (1.005-1.030); Urine pH 6.5 (5.0-7.0)
[2022-01-16 06:03] LABS: Absolute Lymphocytes (CBC) 0.7 K/uL (0.7-4.9); Hematocrit 40.2 % (39.6-49.0); Lymphocytes % 3.5 % (15.3-44.8); MCV 90.4 fL (80-100); MPV 8.1 fL (7.6-11.3); RBC Red Blood Cell Count 4.45 M/uL (4.33-5.43)
[2022-01-16 06:22] LABS: Albumin 3.5 g/dL (3.4-5.0); Bilirubin Total 0.8 mg/dL (0.2-1.0); Potassium 3.5 mmol/L (3.5-5.1); Protein, Total 8.5 g/dL (6.4-8.2)
[2022-01-16] MEDS ORDERED: ACETAMINOPHEN 500 MG TAB PO PRN (06:27)
[2022-01-16] MEDS ORDERED: ONDANSETRON 4 MG/2 ML VIAL IV PRN (06:27)
[2022-01-16] MEDS ORDERED: NA CHLORIDE 0.9% 500 ML ONE (06:41)
[2022-01-16] MEDS ORDERED: CEFTRIAXONE 1000 MG/VIAL ONE (07:35)
--- NOTE | 2022-01-16 07:56 | ER ---
Nurse's Notes [facility] Name: Valerio France Age: 86 yrs Sex: Male : 1935 Arrival Date: 01/16/2022 Time: 05:12 Bed 3 Private MD: Diagnosis: Altered mental status, unspecified;Diarrhea, unspecified;Retention of urine, unspecified Presentation: 01/16 05:12 Chief complaint: EMS states: family reports woke up around midnight altered, has been jb4 altered since, is currently A\T\Ox1. Has had an unsteady gait for the past 2 days per family. Has a PICC line in place and been receiving vancomycin for the past 3 months. Coronavirus screen: At this time, the client does not indicate any symptoms associated with coronavirus-19. Ebola Screen: No symptoms or risks identified at this time. Initial Sepsis Screen: Does the patient meet any 2 criteria? Altered Mental Status. HR > 90 bpm. Yes Does the patient have a suspected source of infection? Yes: Skin breakdown/wound If YES to both, name of provider notified: Chepe Pham MD Risk Assessment: Do you want to hurt yourself or someone else? Patient reports no desire to harm self or others. Onset of symptoms was January 16, 2022 at 00:00. 05:12 Method Of Arrival: EMS: [facility] 4 05:12 Acuity: VICTORINO 2 jb4 Historical: - Allergies: 05:15 No Known Allergies; jb4 - Home Meds: 05:15 Plavix Oral [Active]; Aspirin Oral [Active]; jb4 - PMHx: 05:15 Diabetes - NIDDM; Hypertension; multiple myleoma; TIA; CVA; jb4 - Immunization history:: Adult Immunizations unknown. - Social history:: Smoking status: unknown. Screenin:45 Abuse screen: Denies threats or abuse. Nutritional screening: No deficits noted. jb4 Tuberculosis screening: No symptoms or risk factors identified. Fall Risk Fall in past 12 months (25 points). Secondary diagnosis (15 points) Alzheimer's, Gait- Impaired (20 pts.). Mental Status- Overestimates/Forgets Limitations (15 pts.). Total Estrella Fall Scale indicates High Risk Score (45 or more points). Fall prevention measures have been instituted. Side Rails Up X 2 Placed Close to Nursing Station Frequent Obs/Assessments Occuring Family Present and informed to notify staff if the need to leave the bedside As available patient and family educated on Fall Prevention Program and Strategies. Assessment: 05:45 General: Appears in no apparent distress. comfortable, Behavior is calm, cooperative. jb4 Pain: Denies pain. Neuro: Level of Consciousness is awake, alert, Oriented to person. Cardiovascular: Patient's skin is warm and dry. Respiratory: Airway is patent Respiratory effort is even, unlabored, Respiratory pattern is regular, symmetrical. Derm: Skin is intact, Skin is pink, warm \T\ dry. Musculoskeletal: Circulation, motion, and sensation intact. Range of motion: intact in all extremities. 06:29 Reassessment: Patient appears in no apparent distress at this time. No changes from jb4 previously documented assessment. Patient and/or family updated on plan of care and expected duration. Pain level reassessed. 07:00 Reassessment: REPORT RECD FROM ODETTE TINAJERO. 86YO MALE P/W AMS. bp 08:05 General: Appears in no apparent distress. comfortable, Behavior is calm, cooperative. jd3 Pain: Denies pain. Neuro: Finley Agitation-Sedation Scale (RASS): 0 - Alert and Calm Level of Consciousness is awake, alert, confused, Oriented to person. Cardiovascular: Patient's skin is warm and dry. Respiratory: Airway is patent Respiratory effort is even, unlabored, Respiratory pattern is regular, symmetrical. Derm: Skin is intact, Skin is dry, Skin is normal, Skin temperature is warm. Musculoskeletal: Circulation, motion, and sensation intact. Range of motion: intact in all extremities. Vital Signs: 05:12 BP 154 / 95; Pulse 95; Resp 14; Temp 98.3; Pulse Ox 100% on R/A; jb4 06:15 BP 160 / 88; Pulse 85; Resp 13; Pulse Ox 100% on R/A; jb4 06:29 Weight 84.82 kg (R); jb4 07:15 BP 161 / 88; Pulse 99; Resp 16; Pulse Ox 100% ; bp 08:08 BP 151 / 91; Pulse 88; Resp 18; Pulse Ox 99% on R/A; jd3 ED Course: 05:12 Patient arrived in ED. jb4 05:15 Triage completed. jb4 05:15 Arm band placed on right wrist. jb4 05:18 Rittger, Chepe, MD is Attending Physician. kdr 05:45 Inserted saline lock: 18 gauge in left wrist, using aseptic technique. Blood collected. jb4 05:45 Initial lab(s) drawn, by me, sent to lab. First set of blood cultures drawn by me. jb4 05:45 Straight cath inserted, using sterile technique, 14 Fr. Specimen obtained. 800ml out. jb4 06:09 Nomi Penn, RN is Primary Nurse. jb4 06:14 CT Head Brain wo Cont In Process Unspecified. EDMS 06:18 Chest Single View XRAY In Process Unspecified. EDMS 06:22 Notified ED physician of a critical lab result(s). 3.7 lactate. tw5 06:35 Griffiths cath inserted, using sterile technique, 16 Fr., by me, balloon inflated, to jb4 gravity drainage. Patient admitted, IV remains in place. 07:13 Primary Nurse role handed off by Nomi Penn, RN jl7 07:15 Brian Gu, LIOR is Primary Nurse. bp 07:55 David Prince MD is Hospitalizing Provider. kdr 08:08 Patient has correct armband on for positive identification. Placed in gown. Bed in low jd3 position. Call light in reach. Side rails up X2. Adult w/ patient. Client placed on continuous cardiac and pulse oximetry monitoring. NIBP monitoring applied. ekg monitor on. Pulse ox on. NIBP on. 20:39 No provider procedures requiring assistance completed. Patient admitted, IV remains in tw5 place. Administered Medications: 06:44 Drug: NS 0.9% 500 ml Route: IV; Rate: bolus; Site: left wrist; jb4 08:04 Follow up: Response: No adverse reaction; IV Status: Completed infusion; IV Intake: jd3 500ml 07:39 Drug: Rocephin (cefTRIAXone) 1 grams Route: IV; Rate: calculated rate; Site: left wrist;em6 Medication: 08:08 VIS not applicable for this client. jd3 Intake: 08:04 IV: 500ml; Total: 500ml. jd3 Outcome: 07:56 Decision to Hospitalize by Provider. kdr 20:39 Admitted to ICU Other Overflow- Report given to Ursula tw5 20:39 Condition: stable 20:39 Instructed on the need for admit. 20:59 Patient left the ED. tw5 Signatures: Dispatcher [employer] EDMS Chepe Pham MD MD kdr Bryson, James, RN RN jb4 Navin Waddell RN RN jl7 Kaiden Berry RN RN jd3 Brian Gu, RN RN Aditi Mata tw5 Leonor Mathews RN RN em6
--- NOTE | 2022-01-16 07:56 | EDPHYS ---
Physician Documentation [facility] Name: Valerio France Age: 86 yrs Sex: Male : 1935 Arrival Date: 01/16/2022 Time: 05:12 Bed 3 Private MD: ED Physician Chepe Pham HPI: 01/16 05:58 This 86 yrs old Male presents to ER via EMS with complaints of AMS. kdr 05:58 Patient was brought to the emergency department by EMS. His daughter had called his kdr said altered mental status. She states that for the 68 hours prior to arrival he has been having diarrhea about every 30 minutes. She has been pushing fluids but he seemed to not respond well to that and not be overly motivated to drink and to maintain his hydration. When he became more disoriented, she is EMS to bring him to the emergency department. He did have several falls that were unwitnessed. She had heard a thump in his bedroom and went to find him on the floor. She will exam he appears to be not in any acute distress. He is able to express his name but not respond appropriately to other questions. Onset: The symptoms/episode began/occurred gradually, 8 hour(s) ago. Severity of symptoms: At their worst the symptoms were mild moderate just prior to arrival, in the emergency department the symptoms are unchanged. The patient has not experienced similar symptoms in the past. The patient has not recently seen a physician. Historical: - Allergies: 05:15 No Known Allergies; jb4 - Home Meds: 05:15 Plavix Oral [Active]; Aspirin Oral [Active]; jb4 - PMHx: 05:15 Diabetes - NIDDM; Hypertension; multiple myleoma; TIA; CVA; jb4 - Immunization history:: Adult Immunizations unknown. - Social history:: Smoking status: unknown. ROS: 05:58 Constitutional: Patient is unable to give a history secondary to his altered mental kdr status. His daughter is able to relate the events leading up to his admission to the ED. Exam: 05:57 ECG was reviewed by the Attending Physician. kdr 07:59 Constitutional: This is a well developed, poorly nourished patient who is awake, but kdr moderately altered and in no acute distress. The patient is able to respond to simple questions Vital Signs: 05:12 BP 154 / 95; Pulse 95; Resp 14; Temp 98.3; Pulse Ox 100% on R/A; jb4 06:15 BP 160 / 88; Pulse 85; Resp 13; Pulse Ox 100% on R/A; jb4 06:29 Weight 84.82 kg (R); jb4 07:15 BP 161 / 88; Pulse 99; Resp 16; Pulse Ox 100% ; bp 08:08 BP 151 / 91; Pulse 88; Resp 18; Pulse Ox 99% on R/A; jd3 MDM: 07:56 Patient medically screened. kdr 07:59 Data reviewed: vital signs, nurses notes, lab test result(s). Counseling: I had a kdr detailed discussion with the patient and/or guardian regarding: the historical points, exam findings, and any diagnostic results supporting the discharge/admit diagnosis, lab results, radiology results, the need for outpatient follow up. 01/16 05:19 Order name: Blood Culture Adult (2) kdr 01/16 05:19 Order name: CBC with Diff; Complete Time: 07:46 kdr 01/16 05:19 Order name: CMP; Complete Time: 07:46 kdr 01/16 05:19 Order name: Lactate; Complete Time: 07:46 kdr 01/16 05:19 Order name: Protime (+inr); Complete Time: 07:46 kdr 01/16 05:19 Order name: Ptt, Activated; Complete Time: 07:46 kdr 01/16 05:26 Order name: COVID-19 SARS RT PCR (Document "Date of Onset" if Symptomatic); Complete tw5 Time: 07:46 01/16 05:36 Order name: Urine Culture kdr 01/16 05:37 Order name: Fecal Leukocyte Stain kdr 01/16 05:37 Order name: Occult Blood kdr 01/16 05:37 Order name: Ova And Parasites kdr 01/16 05:37 Order name: Stool Culture kdr 01/16 05:39 Order name: Urine Dipstick-Ancillary; Complete Time: 07:46 EDMS 01/16 06:31 Order name: Basic Metabolic Panel EDMS 01/16 05:19 Order name: Chest Single View XRAY kdr 01/16 05:20 Order name: CT Head Brain wo Cont kdr 01/16 06:31 Order name: Basic Metabolic Panel EDMS 01/16 06:31 Order name: CBC with Automated Diff EDMS 01/16 06:31 Order name: CBC with Automated Diff EDMS 01/16 08:22 Order name: Lactate sd2 01/16 08:25 Order name: Troponin High Sensitivity sd2 01/16 08:25 Order name: CPK sd2 01/16 08:59 Order name: Lactate; Complete Time: 20:32 EDMS 01/16 08:59 Order name: Creatine Phosphokinase; Complete Time: 20:32 EDMS 01/16 08:59 Order name: Troponin High Sensitivity; Complete Time: 20:32 EDMS 01/16 12:47 Order name: US; Complete Time: 20:32 EDMS 01/16 12:50 Order name: RAD; Complete Time: 20:32 EDMS 01/16 16:09 Order name: Urinalysis; Complete Time: 20:32 EDMS 01/16 18:39 Order name: Vancomycin Level Trough; Complete Time: 20:32 EDMS 01/16 19:37 Order name: ABG Arterial Blood Gas; Complete Time: 20:32 EDMS 01/16 05:19 Order name: Accucheck; Complete Time: 06:09 kdr 01/16 05:19 Order name: Cardiac monitoring; Complete Time: 06:09 kdr 01/16 05:19 Order name: EKG - Nurse/Tech; Complete Time: 06:09 kdr 01/16 05:19 Order name: IV Saline Lock - Large Bore; Complete Time: 06:09 kdr 01/16 05:19 Order name: Labs collected and sent; Complete Time: 06:09 kdr 01/16 05:19 Order name: O2 Per Protocol; Complete Time: 06:09 kdr 01/16 05:19 Order name: O2 Sat Monitoring; Complete Time: 06:09 kdr 01/16 05:19 Order name: Urine Dipstick-Ancillary (obtain specimen); Complete Time: 06:09 kdr 01/16 06:31 Order name: CONS Physician Consult EDMS 01/16 06:31 Order name: EKG Electrocardiogram EDMS 01/16 06:31 Order name: EKG Electrocardiogram EDMS 01/16 06:31 Order name: EKG Electrocardiogram EDMS 01/16 06:31 Order name: EKG Electrocardiogram EDMS 01/16 06:44 Order name: Griffiths; Complete Time: 06:44 jb4 01/16 12:52 Order name: US; Complete Time: 20:32 EDMS EC:57 Rate is 99 beats/min. Rhythm is regular, Sinus Rhythm with 1st degree heart block. QRS kdr Armstrong is Normal. [place] interval is normal. QRS interval is normal. QT interval is normal. Clinical impression: NSR w/ Non-specific ST/T Changes and 1st degree heart block. Administered Medications: 06:44 Drug: NS 0.9% 500 ml Route: IV; Rate: bolus; Site: left wrist; jb4 08:04 Follow up: Response: No adverse reaction; IV Status: Completed infusion; IV Intake: jd3 500ml 07:39 Drug: Rocephin (cefTRIAXone) 1 grams Route: IV; Rate: calculated rate; Site: left wrist;em6 Disposition Summary: 01/16/22 07:56 Hospitalization Ordered Hospitalization Status: Inpatient Admission kdr Provider: David Prince Condition: Fair kdr Problem: new kdr Symptoms: are unchanged kdr Bed/Room Type: Standard kdr Location: Intensive Care Unit(01/16/22 20:21) ds4 Room Assignment: 1-(01/16/22 20:21) ds4 Diagnosis - Altered mental status, unspecified kdr - Diarrhea, unspecified kdr - Retention of urine, unspecified kdr Forms: - Medication Reconciliation Form kdr - SBAR form kdr Signatures: Dispatcher [employer] EDMS Chepe Pham MD MD kdr Jade Brown, BOW STAPLER-C BOW STAPLER-Csnw Ismael Peng ds4 Joana Day, RN RN cg Nomi Penn, RN RN jb4 Leonor Mathews RN RN em6 Kaiden Berry RN jd3 Corrections: (The following items were deleted from the chart) 18:48 07:56 Telemetry/MedSurg (Inpatient) kdr cg 18:48 07:56 kdr cg 20:21 18:48 [facility] ER HOLD cg ds4 20:21 18:48 ERHOLD- cg ds4
[2022-01-16 08:59] LABS: Troponin High Sensitivity 20.6 pg/mL (<58.9)
[2022-01-16] MEDS ORDERED: ASPIRIN EC 81 MG TAB PO SCH (09:00)
[2022-01-16] MEDS ORDERED: Ringers Lactate 1,000 ML IV SCH (11:00)
--- NOTE | 2022-01-16 11:06 | P.HP ---
Certification for Inpatient Patient admitted to: Inpatient With expected LOS: >2 Midnights Patient will require the following post-hospital care: None Practitioner: I am a practitioner with admitting privileges, knowledge of patient current condition, hospital course, and medical plan of care. Services: Services provided to patient in accordance with Admission requirements found in Title 42 Section 412.3 of the Code of Federal Regulations Patient History Date of Service: 01/16/22 Reason for admission: Acute Metabolic Encephalopathy History of Present Illness: Mr. Valerio France is an 86 year old male who has a past medical history of multiple myeloma, chronic atrial fibrillation, type 2 diabetes mellitus, hypertension, multiple transient ischemic attacks, hypothyroidism, and a "shunt in his leg" who presents to the [facility] Emergency Department with altered mental status. He is currently alert and oriented x 1 to self only. He is unable to provide any meaningful history at this time. History was obtained via discussion with Dr. Pham and his son (and stated MPOA), Mr. Marcell France. He reports that, over the last 1-2 days, his granddaughter (who lives with him) noted that he was experiencing unsteadiness and worsening mental status. He denies any obvious inciting or alleviating factors. They report no recent changes in his medication list. They state that he has not complained of anything in particular and are concerned that he may have an infection, so he was brought to the emergency department for further evaluation. I have attempted to contact his daughter Ms. Adelina Forbes, without success. No further history is available at this time. He was brought to the Emergency Department for further evaluation. Upon presentation, his vital signs were notable for a heart rate of 99 bpm. His laboratory studies were notable for a WBC count of 19,000, a calcium of 12.1, an AST of 44, an ALT of 96, a glucose of 220, and a creatinine of 1.79 (was 1.08 on 01/03/2022). Initial lactate was 3.7. Blood cultures x 2 were obtained. EKG revealed sinus rhythm without STEMI criteria. CT head revealed, "1. There is no evidence of acute intracranial pathology. 2. Moderate cerebral atrophy with findings compatible with chronic microangiopathy and multiple old bilateral lacunar infarcts." In the Emergency Department, he was given ceftriaxone and 500 mL of normal saline. He was admitted to the General Internal Medicine service for further evaluation. Allergies No Known Allergies Allergy (Verified 11/12/21 10:58) Home medications list reviewed: Yes Home Medications: Amlodipine Besylate/Benazepril [Amlodipine-Benazepril 10-40 mg] 10 mg PO BEDTIME 05/15/16 Levothyroxine Sodium 75 mcg PO [id number] 05/15/16 Metformin HCl [Glucophage] 500 mg PO BID 05/15/16 Aspirin 81 mg PO DAILY 06/18/21 Atorvastatin Calcium [Lipitor] 80 mg PO BEDTIME 06/18/21 Fluoxetine HCl 10 mg PO DAILY 06/18/21 Cholecalciferol (Vitamin D3) [Vitamin D3] 2,000 unit PO DAILY 01/16/22 Glimepiride 4 mg PO DAILY 01/16/22 Krill/Om-3/Dha/Epa/Phospho/Ast [Krill Oil 500 mg Softgel] 1 each PO DAILY 01/16/22 Multivitamin 1 each PO DAILY 01/16/22 Rivaroxaban [Xarelto] 2.5 mg PO BID 01/16/22 Vancomycin HCl in Dextrose 5 % [Vancomycin 1.5 Gram/250 ml-D5w] 1.5 gm IV DAILY 01/16/22 Vitamin E 268 mg PO DAILY 01/16/22 - Past Medical/Surgical History Diabetic: Yes -: A Fib -: Depression -: HTN -: DM -: Osteomyelitis -: Hyperlipidemia -: Hypothyroidism -: PAD -: L knee surgery -: cataract sx -: Watchman Device - Family History Father -: GI disease, Cancer Notes: pt has hx of DM and is on insulin - Social History Alcohol use: No CD- Drugs: No Caffeine use: No Review of Systems is unable to be obtained Physical Examination - Vital Signs Temperature: 98.3 F Blood Pressure: 161/88 Pulse: 99 Respirations: 16 Pulse Ox (%): 100 - Physical Exam General: Alert, In no apparent distress, Oriented x1, Cooperative HEENT: Atraumatic, PERRLA, Mucous membr. moist/pink, EOMI, Sclerae nonicteric Neck: Supple, JVD not distended Respiratory: Clear to auscultation bilaterally, Normal air movement Cardiovascular: No edema, Regular rate/rhythm, Normal S1 S2, No gallops, No rubs, No murmurs Gastrointestinal: Normal bowel sounds, Soft and benign, Non-distended, No tenderness, No rebound, No guarding Musculoskeletal: No clubbing Integumentary: Other (necrotic appearing ulcer on top of left big toe. No preet drainage appreciated.) Neurological: Cranial nerves 3-12 intact - Studies Laboratory Data (last 24 hrs) 01/16/22 05:45: PT 22.3 H, INR 2.00, APTT 37.1 H 01/16/22 05:45: Sodium 140, Potassium 3.5, BUN 29 H, Creatinine 1.79 H, Glucose 220 H, Total Bilirubin 0.8, AST 44 H, ALT 96 H, Alkaline Phosphatase 72 01/16/22 05:45: WBC 19.00 H, Hgb 13.6, Hct 40.2, Plt Count 205 Assessment and Plan - Plan # Acute Toxic Metabolic Encephalopathy likely secondary to Severe Sepsis vs Hypercalcemia vs Recrudensce of Prior CVA # Hypercalcemia suspect secondary to Multiple Myeloma - Evaluation thus far: - Labs = Na+ 140, Ca2+ 12.1, CO2 22, Glucose 220, BUN 29 - VBG ordered - Blood cultures x 2 drawn - Urinalysis = trace blood, trace leukocyte esterase - CT head = no "acute intracranial pathology" - Management plan: - Treatment for sepsis as mentioned below - Normal Saline @ 75 mL/hr - q4hr neuro checks - Empiric ceftriaxone started in ED # Severe Sepsis possibly secondary to Urinary Tract Infection +/- Cellulitis He meets sepsis criteria based on HR > 90 bpm and WBC > 12,000, and the suspected source is a UTI vs left big toe cellulitis. Severe sepsis is suspected due to concern for tissue hypoperfusion/organ dysfunction based on coagulopathy (INR > 1.5) and lactic acid > 2 mmol/L. - Sepsis order set was initiated in ED - Initial Lactate was 3.7, trend - Blood cultures drawn before antibiotics were given - Broad spectrum antibiotics started in ED: Ceftriaxone - Will order left foot x-ray to evaluate for osteomyelitis - In regards to fluids: - 30 mL/kg of IV fluids was not administered given SBP > 90, MAP > 65, lactic acid < 4 # KDIGO Stage I Acute Kidney Injury - Creatinine = 1.79 (creatinine was 1.08 on 01/03/2022) - Urinalysis = trace blood, trace leukocyte esterase - IV fluids as mentioned above - Monitor creatinine and urine output - Griffiths catheter placed - Obtain renal ultrasound - Renally dose medications # Hyperglycemia in Type II Diabetes Mellitus - Ordered Hgb A1c - Correction scale insulin # Mildly Elevated LFTs - Requested RUQ ultrasound # Chronic Atrial Fibrillation s/p Watchman Device # Hypertension # S/P Lower Extremity Shunt # Hypothyroidism - Resume home medications once reconciled and verified David Prince M.D. Plan to discharge in: Greater than 2 days - Advance Directives Does patient have a Living Will: No Does patient have a Durable POA for Healthcare: No
[2022-01-16] MEDS ORDERED: Ringers Lactate 1,000 ML IV ONE (11:36)
--- NOTE | 2022-01-16 12:46 | RAD REPORT ---
EXAM DESCRIPTION: US - Abdomen Exam Complete - 01/16/2022 12:20 pm CLINICAL HISTORY: elevated LFTs, JAIRO COMPARISON: Abdomen Pelvis W Contrast dated 08/08/2020 FINDINGS: Multiple subcentimeter sized gallstones are present. No wall thickening or pericholecystic fluid. Gallbladder is not dilated. Common bile duct is normal with no common duct stone identified. Liver and spleen are normal size with no focal abnormality seen. Bowel and body habitus affects limit splenic assessment. Doppler evaluation shows no portal vein abnormality. The pancreas is too obscured by bowel for assessment. No hydronephrosis or suspicious mass in either kidney. Aorta and IVC show no acute finding. Aortic atherosclerotic wall calcifications are present. No ascit es or bulky lymphadenopathy. IMPRESSION: Multiple sub centimeter mobile gallstones are seen. No other gallbladder or biliary tree abnormality identified. Liver is normal size. No focal liver lesions identifiable. Pancreas is too obscured by bowel for assessment.
--- NOTE | 2022-01-16 12:49 | RAD REPORT ---
EXAM DESCRIPTION: RAD - Foot Left 2 View - 01/16/2022 11:54 am CLINICAL HISTORY: big toe osteomyelitis? COMPARISON: Left foot September 2021 FINDINGS: The head of the first proximal phalanx is absent. This is unchanged from the September examinati on. No surgical history detailed. 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 The medial articular margin of the first distal phalanx is irregular suggesti ng erosive bone loss as well. The 5 metatarsals and the second- fifth toe show no acute finding. Dens e arterial tree calcifications are present. A large plantar spur is seen. No air or foreign body in the soft tissues. IMPRESSION: Absence of the first proximal phalanx head with irregular cortical margin of the medial aspect first distal phalanx base. The bone loss is new from the September examination. No surgical history was detailed. 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
--- NOTE | 2022-01-16 12:51 | RAD REPORT ---
EXAM DESCRIPTION: US - Urinary Bladder - 01/16/2022 12:20 pm CLINICAL HISTORY: urinary retention COMPARISON: No comparisons FINDINGS: Griffiths catheter is in place within a mostly collapsed urinary bladder. Volume was 85 millil iters. No gross evidence for wall thickening or mass. Bladder assessment is considered limited. After unclamping the Griffiths, the bladder fully collapsed.
[2022-01-16 16:09] LABS: Specific Gravity 1.015 (1.005-1.030); Urine Bilirubin Negative (Negative); Urine Blood 2+ (Negative); Urine Clarity Clear (Clear); Urine Color Yellow (Yellow); Urine Glucose 1+ (Negative); Urine Protein Negative (Negative); Urine Urobilinogen 0.2 mg/dL (0.2-1.0); Urine pH 5.5 (5.0-7.0)
[2022-01-16] MEDS ORDERED: VANCOMYCIN 1 GM in NA CHLORIDE 0.9% 250 ML IVPB SCH (16:22)
[2022-01-16 16:44] LABS: Urine Bacteria <20 /HPF (<20)
[2022-01-16] MEDS ORDERED: VANCOMYCIN 1 GM/VIAL ONE (16:53)
[2022-01-16] MEDS ORDERED: NA CHLORIDE 0.9% 250 ML ONE (16:54)
[2022-01-16] MEDS: NA CHLORIDE 0.9% 1,000 ML IV SCH (17:00)
[2022-01-16] MEDS ORDERED: VANCOMYCIN 2 GM in NA CHLORIDE 0.9% 500 ML IVPB ONE (17:00)
[2022-01-16] MEDS ORDERED: NA CHLORIDE 0.9% 1,000 ML ONE (18:08)
[2022-01-16] MEDS ORDERED: D50W 25 GM/50 ML SYRINGE IV PRN (19:09)
[2022-01-16] MEDS ORDERED: GLUCAGON 1 MG/VIAL IM PRN (19:09)
[2022-01-16] MEDS ORDERED: D10W 125 ML IV PRN (19:13)
[2022-01-16 19:36] LABS: Arterial Blood Carboxyhemoglob 0.8 % (0-1.5); Blood Gas Oxyhemoglobin 91.9 % (94-97); Blood O2 Saturation 94.2 % (92-98.5)
[2022-01-16] MEDS: RIVAROXABAN 2.5 MG PO SCH (21:00)
[2022-01-16] MEDS: ATORVASTATIN 80 MG TAB PO SCH (22:43)
[2022-01-16] MEDS: INSULIN -REGULAR HUMAN 50 UNIT/0.5 ML ML SQ SCH (22:43)
--- NOTE | 2022-01-16 23:11 | P.PN ---
Subjective Date of Service: 01/16/22 Chief Complaint: Acute Metabolic Encephalopathy Subjective: Improving (Pt is more alert and able to tolerate po. Will resume his home medication for HTN. Amlodipine 10mg and Benazepril 40mg now) <Jade Brown - Last Filed: 01/16/22 23:09> Date of Service: 01/17/22 <Jeancarlos Higuera - Last Filed: 01/17/22 23:40> Physical Examination - Vital Signs Temperature: 98.3 F Blood Pressure: 161/88 Pulse: 99 Respirations: 16 Pulse Ox (%): 100 - Studies Laboratory Data (last 24 hrs) 01/16/22 05:45: PT 22.3 H, INR 2.00, APTT 37.1 H 01/16/22 05:45: Sodium 140, Potassium 3.5, BUN 29 H, Creatinine 1.79 H, Glucose 220 H, Total Bilirubin 0.8, AST 44 H, ALT 96 H, Alkaline Phosphatase 72 01/16/22 05:45: WBC 19.00 H, Hgb 13.6, Hct 40.2, Plt Count 205 <Jade Brown - Last Filed: 01/16/22 23:09>
[2022-01-16] MEDS: BENAZEPRIL 20 MG TAB PO SCH (23:35)
[2022-01-16] MEDS: AMLODIPINE 10 MG TAB PO SCH (23:38)
[2022-01-17 05:11] LABS: Absolute Lymphocytes (CBC) 1.4 K/uL (0.7-4.9); Hematocrit 35.8 % (39.6-49.0); MCV 90.5 fL (80-100); MPV 8.3 fL (7.6-11.3); RBC Red Blood Cell Count 3.96 M/uL (4.33-5.43)
[2022-01-17 05:16] LABS: Protime INR 1.4
[2022-01-17 05:29] LABS: Albumin 2.9 g/dL (3.4-5.0); Bilirubin Total 0.9 mg/dL (0.2-1.0); Magnesium 1.9 mg/dL (1.8-2.4); Phosphorus 2.6 mg/dL (2.5-4.9); Protein, Total 7.5 g/dL (6.4-8.2)
[2022-01-17 05:37] LABS: Potassium 2.9 mmol/L (3.5-5.1)
[2022-01-17] MEDS ORDERED: POTASSIUM 25 MEQ EFFERV TAB PO ONE (05:44)
[2022-01-17] MEDS ORDERED: KCL 20 MEQ/100 mL IVPB 20 MEQ/100 ML BAG IV SCH (06:00)
[2022-01-17] MEDS: LEVOTHYROXINE SOD 0.075 MG TAB PO SCH (07:29)
[2022-01-17] MEDS: INSULIN -REGULAR HUMAN 50 UNIT/0.5 ML ML SQ SCH ×4 (07:30→21:00)
--- NOTE | 2022-01-17 08:09 | EKG ---
Test Date: 2022-01-16 Test Time: 05:18:39 Lokie Engineer: RCISTO MEASUREMENT RESULTS: Intervals: Rate: 99 MT: 280 QRSD: 86 QT: 358 QTc: 459 [place]: P: MT: 280 QRS: -6 T: 133 INTERPRETIVE STATEMENTS: Sinus rhythm with 1st degree AV block Nonspecific ST and T wave abnormality Abnormal ECG Compared to ECG 11/12/2021 12:59:08 ST (T wave) deviation now present Electronically Signed On 01-17-22 08:06:32 CDT by Gen Porter
[2022-01-17] MEDS: RIVAROXABAN 2.5 MG PO SCH ×2 (09:00→21:25)
[2022-01-17] MEDS: AMLODIPINE 10 MG TAB PO SCH (09:08)
[2022-01-17] MEDS: FLUOXETINE 10 MG CAP PO SCH (09:08)
[2022-01-17] MEDS: CEFTRIAXONE 1,000 MG in NA CHLORIDE 0.9% 50 ML IVPB SCH (09:09)
[2022-01-17] MEDS: BENAZEPRIL 20 MG TAB PO SCH (09:10)
[2022-01-17] MEDS: ASPIRIN 81 MG CHEWABLE TABLET PO SCH (09:10)
[2022-01-17] MEDS: NA CHLORIDE 0.9% 1,000 ML IV SCH (09:11)
--- NOTE | 2022-01-17 10:16 | RAD REPORT ---
EXAM DESCRIPTION: CT - Head Brain Wo Cont - 01/16/2022 7:14 am CLINICAL HISTORY: 86 years Male Mental status change, unknown cause TECHNIQUE: Multiple axial CT images of the brain were performed followed by sagittal and coronal rec onstructed images. The CT study is performed according to ALARA (as low as reasonably achievable) or ALARA/IMAGE GENTLY, with automatic adjustment of mA and/or kV according to patient size. Performed on: 01/16/2022 at 6:10 AM COMPARISON: Head CT performed on 11/12/2021. FINDINGS: Brain: There is no evidence of mass, acute mass effect or midline shift. There are no acut e extra-axial fluid collections. There is no evidence of acute intracranial hemorrhage. The cerebra l sulci and ventricles are prominent consistent with moderate cerebral volume loss. There are scatter ed areas of decreased attenuation within the subcortical and periventricular white matter most consis tent with chronic moderate microangiopathy. There are multiple old bilateral lacunar infarcts Paranasal Sinuses and Mastoids: There is trace mucosal thickening of the paranasal sinuses. The masto id air cells are clear. Orbits: The orbital contents are grossly unremarkable. Bones: No acute osseous abnormalities are identified. Soft Tissues: No focal soft tissue abnormalities are identified. There is ligamentous calcification a t the lateral axial junction. IMPRESSION: 1. There is no evidence of acute intracranial pathology. 2. Moderate cerebral atrophy with findings compatible with chronic microangiopathy and multiple old bilateral lacunar infarcts. Electronically signed by: Ananya Stevenson DO 01/16/2022 6:47 AM CDT Due to temporary technical issues with the PACS/Fluency reporting system, reports are being signed by the in house radiologists without review as a courtesy to insure prompt reporting. The interpreting radiologist is fully responsible for the content of the report.
[2022-01-17] MEDS: VANCOMYCIN 1.5 GM in NA CHLORIDE 0.9% 500 ML IVPB SCH (12:24)
[2022-01-17] MEDS ORDERED: TAMSULOSIN 0.4 MG SR CAP PO ONE (12:30)
[2022-01-17 13:49] LABS: Potassium 3.3 mmol/L (3.5-5.1)
--- NOTE | 2022-01-17 13:57 | RAD REPORT ---
EXAM DESCRIPTION: RAD - Chest Single View - 01/16/2022 6:15 am CLINICAL HISTORY: weakness COMPARISON: Two view chest 11/12/2021 ; portable 05/04/2019 TECHNIQUE: AP portable chest image was obtained 01/16/2022 6:15 am . FINDINGS: No acute lung parenchymal process seen. Interstitial pattern is similar to comparison. No new hilar mass or lymphadenopathy. Heart and vasculature are normal. Trachea is midline. No measurable pleural effusion and no pneumothorax. No acute bony abnormality seen. Sclerotic density superimposed on the posterior right seventh rib has not changed since 2019. No acute aortic findings suspected. Right-sided PICC line is in place. Tip terminates in the right subclavian vein. IMPRESSION: Right-sided PICC line in place with tip in the right subclavian vein. No acute cardiopulmonary finding. Final report was delayed due to technical issues with the overnight reading service.
--- NOTE | 2022-01-17 16:42 | CON ---
History Of Present Illness: This is an 86-year-old male. I was consulted for left big toe osteomyel itis. The patient has significant past medical history of multiple myeloma, chronic atrial fibrillat ion, type 2 diabetes mellitus, hypertension, multiple transient ischemic attacks, hypothyroidism, cam e to the hospital because of altered mental status. The patient was found to have urinary tract infe ction and sepsis. The patient is currently being treated with IV antibiotic and vancomycin and Rocep hin. The patient denies any headache, nausea, vomiting, chest pain, abdominal pain, constipation, or diarrhea. Has been pulling his Griffiths catheter according to the nurse. His initial white blood cell count was elevated to close to 20,000, is coming down slowly, and the patient is somewhat more awake . Past Medical History: Atrial fibrillation, depression, hypertension, diabetes mellitus, osteomyeliti s, hyperlipidemia, hypothyroidism, peripheral arterial disease, left knee surgery, cataract surgery. Social History: Nonsmoker, nondrinker. Family History: Cancer. Medications: Vancomycin, Rocephin. See MAR for other medications. Allergies: NO KNOWN DRUG ALLERGIES. Review of Systems: A 10-point review was performed. Physical Examination: General: This is an 86-year-old male, lying in ICU bed 1, not in any acute cardiopulmonary distress. Vital Signs: Temperature 98, pulse 82, respirations 16, blood pressure 170/99. HEENT: Unremarkable. Neck: Supple. Lungs: Basal crackles. Heart: S1, S2. Regular. Abdomen: Soft, nontender. Bowel sounds present. Extremity: Left big toe with wound between distal and proximal phalanx noted in the joint region. Laboratory Data: Shows WBC 17,000 down from 19, hemoglobin 12.4, platelets 177. Chemistry shows sod ium 140, potassium 3.3, chloride 108, bicarb 25, BUN 18, creatinine 1.15, glucose 197. Albumin level is 2.9. Micro data; blood cultures no growth, urine is no growth. His initial chest x-ray done on 01/[address] head done on 01/16 shows no evidence of acute intracranial pathology, moderate cerebral atrophy noted. Foot x-ray done yesterday shows abscess of the proximal phalanx he ad and irregular cortical margin of the medial aspect, first distal phalanx base. The bone loss is n ew from the September examination. Bladder ultrasound shows Griffiths catheter in place. Assessment And Plan: An 86-year-old male coming in with altered mental status and questionable urina ry tract infection as a source of altered mental status. The patient also has left big toe osteomyel itis and wound, which is being following with [facility]. The patient is currently on vancomy herman, Rocephin. Cultures showing no growth to date. The patient's leukocytosis is slowly improving. Also has anemia of chronic disease, peripheral arterial disease, diabetes mellitus type 2, and diabe tic neuropathy, moderate protein-calorie malnourishment. Continue antibiotic and supportive care. C onsider total of 6 weeks of antibiotics at this time. Also, consider applying Medihoney with alginat e to the wound site after cleaning and with Dakin. We will follow the patient closely. NF/MODL Voice ID: [id number] Report ID: [id number]
[2022-01-17] MEDS: COLLAGENASE 30 GM OINTMENT TOP SCH (17:12)
[2022-01-17] MEDS ORDERED: ZIPRASIDONE 20 MG CAP PO PRN (19:55)
[2022-01-17] MEDS ORDERED: WATER FOR INJ,STERILE 10 ML IM PRN (21:01)
[2022-01-17] MEDS: ZIPRASIDONE MESYLA 20 MG/VIAL IM PRN (21:25)
[2022-01-17] MEDS: ATORVASTATIN 80 MG TAB PO SCH (21:25)
[2022-01-17] MEDS ORDERED: HALOPERIDOL LACT 5 MG/ML INJ IV PRN (22:57)
--- NOTE | 2022-01-17 23:44 | P.PN ---
Subjective Date of Service: 01/17/22 Subjective: No new changes, No C/O voiced, Improving Review of Systems is unable to be obtained Physical Examination - Vital Signs Temperature: 97.3 F Blood Pressure: 146/75 Pulse: 89 Respirations: 17 Pulse Ox (%): 97 - Physical Exam General: Alert, In no apparent distress HEENT: Atraumatic, PERRLA, EOMI Neck: Supple, JVD not distended Respiratory: Clear to auscultation bilaterally, Normal air movement Cardiovascular: Regular rate/rhythm, Normal S1 S2 Gastrointestinal: Normal bowel sounds, No tenderness Musculoskeletal: No tenderness Integumentary: No rashes Neurological: Normal speech, Normal tone, Normal affect Lymphatics: No axilla or inguinal lymphadenopathy - Studies Medications List Reviewed: Yes Assessment & Plan - Problems (Diagnosis) (1) Atrial fibrillation Current Visit: No Status: Acute (2) CVA (cerebral vascular accident) Current Visit: No Status: Acute (3) Depression Current Visit: No Status: Acute (4) Hx of left knee surgery Current Visit: No Status: Acute (5) Hx of multiple myeloma Current Visit: No Status: Acute (6) Hx of transient ischemic attack (TIA) Current Visit: No Status: Acute (7) Hyperlipidemia Current Visit: No Status: Acute (8) Hypertension Current Visit: No Status: Acute (9) Hypothyroidism Current Visit: No Status: Acute (10) Peripheral edema Current Visit: No Status: Acute (11) Presence of Watchman left atrial appendage closure device Current Visit: No Status: Acute (12) Diabetes mellitus Current Visit: No Status: Chronic (13) Hypercalcemia Current Visit: Yes Status: Acute (14) Metabolic encephalopathy Current Visit: Yes Status: Acute - Plan -IV HYDRATION -IV ANTIBIOTICS -CULTURES ARE PENDING -CHECK RENAL FUNCTION AND ELECTROLYTES -MRI OF THE BRAIN IF SYMPTOMS ARE NOT IMPROVED -CHECK THYROID STUDIES AND CORTISOL STUDIES -BED CHECK IN PLACE -PHYSICAL THERAPY EVALUATION ONCE MENTATION IS IMPROVED -DISCUSS CODE STATUS WITH FAMILY Discharge Plan: Home - Advance Directives Does patient have a Living Will: No Does patient have a Durable POA for Healthcare: No - Code Status/Comfort Care Code Status Assessed: Yes Code Status: Full Code Critical Care: No Time Spent Managing PTS Care (In Minutes): 35
[2022-01-18] MEDS: FUROSEMIDE 20 MG/ 2ML VIAL IV SCH ×3 (00:55→16:29)
[2022-01-18] MEDS: MIDAZOLAM HCL 2 MG/2 ML INJ IV PRN ×4 (01:02→23:39)
[2022-01-18] MEDS ORDERED: MIDAZOLAM HCL 2 MG/2 ML INJ ONE (01:10)
[2022-01-18] MEDS: NA CHLORIDE 0.9% 1,000 ML IV SCH ×2 (01:11→16:30)
[2022-01-18 04:57] LABS: Absolute Lymphocytes (CBC) 1.5 K/uL (0.7-4.9); Lymphocytes % 11.3 % (15.3-44.8); MCV 92.2 fL (80-100); MPV 8.6 fL (7.6-11.3); RBC Red Blood Cell Count 4.23 M/uL (4.33-5.43)
[2022-01-18 05:19] LABS: Albumin 2.9 g/dL (3.4-5.0); Bilirubin Total 0.7 mg/dL (0.2-1.0); Magnesium 1.6 mg/dL (1.8-2.4); Potassium 3.2 mmol/L (3.5-5.1); Protein, Total 7.6 g/dL (6.4-8.2)
[2022-01-18] MEDS: LEVOTHYROXINE SOD 0.075 MG TAB PO SCH (05:56)
--- NOTE | 2022-01-18 07:52 | RAD REPORT ---
EXAM DESCRIPTION: RAD - Chest Single View - 01/18/2022 6:14 am CLINICAL HISTORY: pneumonia COMPARISON: Chest Single View dated 01/16/2022; Chest Pa And Lat (2 Views) dated 11/12/2021; Chest Sin gle View dated 10/14/2021; Chest Single View dated 06/17/2021 FINDINGS: Lines: Right subclavian approach vascular line with tip overlying the right subclavian vei n. Lungs: No evidence of edema or pneumonia. Decreased lung volumes. Pleural: No significant pleural effusions or pneumothorax. Cardiac: The heart size is within normal limits. Bones: No acute fractures. Other: IMPRESSION: Decreased lung volumes with likely mild atelectasis. No consolidative airspace disease.
[2022-01-18] MEDS ORDERED: VANCOMYCIN 1.5 GM in NA CHLORIDE 0.9% 500 ML IVPB SCH (09:00)
[2022-01-18] MEDS: COLLAGENASE 30 GM OINTMENT TOP SCH (09:00)
[2022-01-18] MEDS: ASPIRIN 81 MG CHEWABLE TABLET PO SCH (09:05)
[2022-01-18] MEDS: AMLODIPINE 10 MG TAB PO SCH (09:05)
[2022-01-18] MEDS: INSULIN -REGULAR HUMAN 50 UNIT/0.5 ML ML SQ SCH ×4 (09:05→20:50)
[2022-01-18] MEDS: RIVAROXABAN 2.5 MG PO SCH ×2 (09:06→20:50)
[2022-01-18] MEDS: FLUOXETINE 10 MG CAP PO SCH (09:06)
[2022-01-18] MEDS: CEFTRIAXONE 1,000 MG in NA CHLORIDE 0.9% 50 ML IVPB SCH (09:07)
[2022-01-18] MEDS: BENAZEPRIL 20 MG TAB PO SCH (09:08)
[2022-01-18] MEDS: ZIPRASIDONE MESYLA 20 MG/VIAL IM PRN (10:14)
[2022-01-18] MEDS: VANCOMYCIN 1.5 GM in NA CHLORIDE 0.9% 500 ML IVPB SCH (12:20)
--- NOTE | 2022-01-18 15:30 | RAD REPORT ---
EXAM DESCRIPTION: MRI - Brain Wo Cont - 01/18/2022 3:15 pm CLINICAL HISTORY: Acute CVA COMPARISON: Head Brain Wo Cont dated 01/16/2022; Brain Wo Cont dated 11/12/2021 TECHNIQUE: Multi-sequence, multiplanar MR imaging of the brain was performed without contrast. FINDINGS: The examination appears motion degraded, reducing quality of the submitted images. No intracranial hemorrhage, hydrocephalus or extra-axial fluid collections. Advanced confluent T2/FLA IR hyperintensity in the periventricular and deep white matter is present compatible with chronic rosemarie rovascular ischemic changes. DWI is negative for acute CVA. Midline structures are normally formed. Mastoid air cells and paranasal sinuses are clear. IMPRESSION: Negative for acute CVA or other acute intracranial abnormality.
--- NOTE | 2022-01-18 16:33 | PN ---
Subjective: The patient is lying in bed. No new acute event. Chart reviewed. The patient continue d to be confused and hallucinating according to the staff. Objective: Vital Signs: Temperature 97, pulse 93, respiration 16, blood pressure 156/64. Lungs: Basal crackles. Heart: S1, S2. Regular. Abdomen: Soft, nontender. Bowel sounds present. Extremities: Wound noted. Laboratory Data: WBC is down to 13,000 from 17,000, hemoglobin 13.1, platelets 179. Chemistry shows sodium 142, potassium 3.2, chloride 106, bicarb 29, BUN 17, creatinine 1, glucose is 203, calcium le elise is 10.4, albumin level is 2.9 with procalcitonin down to 0.05. Blood cultures, no growth. Chest x-ray done today shows decreased volume with mild atelectasis. No consolidation noted. Assessment And Plan: An 86-year-old male with osteomyelitis of the big toe, altered mental status, u rinary tract infection. Leukocytosis is improving. Consider changing vancomycin to doxycycline. Co ntinue current treatment according to Wound Care team. We will follow the patient closely. NF/MODL Voice ID: [id number] Report ID: [id number]
[2022-01-18] MEDS: ATORVASTATIN 80 MG TAB PO SCH (20:50)
[2022-01-18] MEDS: QUETIAPINE 25 MG TAB PO SCH (20:50)
[2022-01-18] MEDS ORDERED: Magnesium Sulfate 2gm IVPB 2 G/50 ML BAG IV ONE (22:15)
[2022-01-18] MEDS: KCL 20 MEQ/100 mL IVPB 20 MEQ/100 ML BAG IV SCH (22:36)
--- NOTE | 2022-01-18 23:13 | P.PN ---
Date of Service: 01/18/22 Subjective Subjective: Patient is more confused today. MRI of the brain is pending. Neurology consultation. Most likely metabolic from hypercalcemia. Will continue to monitor closely. Review of Systems is unable to be obtained Physical Examination - Vital Signs Reviewed - Physical Exam General: Alert, In no apparent distress Respiratory: Clear to auscultation bilaterally, Normal air movement Cardiovascular: Regular rate/rhythm, Normal S1 S2 Gastrointestinal: Normal bowel sounds, No tenderness Neurological: Normal speech, Normal tone, Normal affect Assessment & Plan - Problems (Diagnosis) (1) Altered mental status/Metabolic encephalopathy Current Visit: No Status: Acute (2) CVA (cerebral vascular accident) Current Visit: No Status: chronic (3) Depression Current Visit: No Status: chronic (4) Hypercalcemia Current Visit: No Status: Acute (5) Hx of multiple myeloma Current Visit: No Status: Acute (6) Hypertension Current Visit: No Status: Acute (7) Hypothyroidism Current Visit: No Status: Acute (8) Presence of Watchman left atrial appendage closure device/Atrial fibrillation Current Visit: No Status: Acute (9) Diabetes mellitus Current Visit: No Status: Chronic - Plan Continue with plan of care as mentioned below: -IV HYDRATION -IV ANTIBIOTICS -CULTURES ARE PENDING -CHECK RENAL FUNCTION AND ELECTROLYTES -MRI OF THE BRAIN -NEUROLOGY CONSULTATION -BED CHECK IN PLACE -PHYSICAL THERAPY EVALUATION ONCE MENTATION IS IMPROVED Time Spent Managing PTS Care (In Minutes): 35
[2022-01-19] MEDS: KCL 20 MEQ/100 mL IVPB 20 MEQ/100 ML BAG IV SCH ×5 (00:39→20:26)
[2022-01-19] MEDS: MIDAZOLAM HCL 2 MG/2 ML INJ IV PRN ×5 (02:29→20:50)
[2022-01-19] MEDS: FUROSEMIDE 20 MG/ 2ML VIAL IV SCH ×3 (02:30→16:29)
[2022-01-19] MEDS ORDERED: HALOPERIDOL LACT 5 MG/ML INJ IV ONE (03:26)
[2022-01-19] MEDS: LEVOTHYROXINE SOD 0.075 MG TAB PO SCH (06:00)
[2022-01-19] MEDS: NA CHLORIDE 0.9% 1,000 ML IV SCH ×2 (06:22→16:28)
[2022-01-19 07:25] LABS: Magnesium 2.2 mg/dL (1.8-2.4)
[2022-01-19 07:30] LABS: Potassium 2.8 mmol/L (3.5-5.1)
[2022-01-19] MEDS: INSULIN -REGULAR HUMAN 50 UNIT/0.5 ML ML SQ SCH ×4 (07:30→20:27)
[2022-01-19 07:41] LABS: Hematocrit 37.2 % (39.6-49.0); Lymphocytes % 9.4 % (15.3-44.8); MCV 91.8 fL (80-100); MPV 8.5 fL (7.6-11.3); RBC Red Blood Cell Count 4.05 M/uL (4.33-5.43)
[2022-01-19] MEDS: COLLAGENASE 30 GM OINTMENT TOP SCH (08:23)
[2022-01-19] MEDS: CEFTRIAXONE 1,000 MG in NA CHLORIDE 0.9% 50 ML IVPB SCH (08:23)
[2022-01-19] MEDS: ASPIRIN 81 MG CHEWABLE TABLET PO SCH (09:00)
[2022-01-19] MEDS: FLUOXETINE 10 MG CAP PO SCH (09:00)
[2022-01-19] MEDS: RIVAROXABAN 2.5 MG PO SCH ×2 (09:00→20:25)
[2022-01-19] MEDS: BENAZEPRIL 20 MG TAB PO SCH (09:00)
[2022-01-19] MEDS: AMLODIPINE 10 MG TAB PO SCH (09:00)
[2022-01-19] MEDS: DOXYCYCLINE 100 MG CAP PO SCH ×2 (11:00→20:25)
--- NOTE | 2022-01-19 15:55 | CON ---
Date of Consultation: 01/18/2022 Reason For Consultation: Left great toe wound. History Of Present Illness: The patient is an 86-year-old gentleman, who was admitted on Monday with metabolic encephalopathy. The patient has multiple medical problems. He has a wound on his left gr eat toe that I have been following [facility] and I was asked to evaluate his wound. The Wound Care nurse had already seen the wound. The family requested that I take a look at the wo und also. The patient had a chronic osteo in that wound and was being treated with IV vancomycin and is currently on vancomycin. The patient is unable to provide any review of systems. The patient ap pears to be confused. The patient's admitting diagnosis was acute metabolic encephalopathy likely se condary to severe sepsis versus hypercalcemia versus recurrence of a prior CVA. He does have UTI as well. Review of Systems: Otherwise unremarkable. Past Medical History: Significant for AFib, depression, multiple myeloma, diabetes, chronic osteo, h yperlipidemia, hypothyroidism, peripheral arterial disease. Past Surgical History: Watchman procedure, cataract surgery, left knee surgery. Allergies: NONE. Social History: The patient currently does not smoke or drink alcohol. Family History: GI disease and cancer. Physical Examination: Vital Signs: Currently stable. The patient is afebrile. General: The patient is confused. Head and Neck: No masses. Chest: Clear. Heart: S1, S2. Abdomen: Soft. Extremity: Diminished dorsalis pedis and posterior tibial pulses. Examination of the left great toe reveals an open wound, which is approximately 1.5 x 0.5 cm into the joint space, but there is good g ranulation tissue around it. There is no purulence in it. There is some redness and based on the we ight, the patient was seen in the Wound Care, it actually looks a little bit better. There is no war mth or edema noted on the great toe. Laboratory Data: White count was 19,000, currently is 10,000. His left shift has improved. INR is 1.4. Chemistry reviewed. Potassium is 2.8, being replaced. The patient had an MRI done yesterday o f the brain, which shows negative for acute CVA or other acute intracranial abnormality. The patient also had a foot x-ray. Abscess of first proximal phalanx head with irregular cortical margins on th e medial aspect of the first distal phalanx base. 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 Assessment: Nonhealing wound, left great toe secondary to chronic osteomyelitis. Recommendations: IV antibiotics as ordered, collagenase for wound care. If the patient's mental sta tus does not improve, we may consider a transmetatarsal amputation of the toe if the patient is not g oing to be able to ambulate. Prior to this event, the patient was ambulating and we were trying to s alvage the toe for balance purposes. I can evaluate this patient for that purpose as an outpatient i n the [facility]. /GARRET Voice ID: [id number] Report ID: [id number]
[2022-01-19] MEDS: QUETIAPINE 25 MG TAB PO SCH (20:25)
[2022-01-19] MEDS: ATORVASTATIN 80 MG TAB PO SCH (20:26)
[2022-01-20] MEDS: NA CHLORIDE 0.9% 1,000 ML IV SCH ×2 (00:20→08:27)
[2022-01-20] MEDS: FUROSEMIDE 20 MG/ 2ML VIAL IV SCH ×3 (00:21→16:14)
--- NOTE | 2022-01-20 02:20 | CON ---
Reason For Consultation: Consultation called because of altered mental status. History Of Present Illness: Mr. France is an 86-year-old patient with multiple medical problems incl uding multiple myeloma, atrial fibrillation, diabetes mellitus, hypertension, and hypothyroidism who was brought to the hospital by family who said he was more unsteady, more confused and disoriented. At [facility] his brain CT scan and an MRI were negative for any acute ischemic or hemorrhag ic stroke. Laboratory studies initially showed white blood cell count elevated at 19,000 with 89% ne utrophils and his lactic acid was elevated at 3.6 and procalcitonin was not available. His potassium was significantly decreased to 2.9, magnesium very elevated to 12.1, creatinine elevated to 1.9. Hi s chest x-ray showed no acute cardiopulmonary findings. I evaluated the patient earlier today and th is is his hospital day 4. At that point, he was actually oriented to person and situation. He follo wed all my commands appropriately to move arms and legs and appeared to be at a baseline level of fun ctioning. It should be noted that electrolytes from today show improvement in his potassium to 3.4, calcium did improve as well to 10.1, and creatinine to 0.98. Past Medical History: As noted. Allergies: NO KNOWN DRUG ALLERGIES. Past Surgical History: Cataract surgery, Watchman device placement, and left knee surgery. Family History: Cancer in father and with diabetes mellitus. Social History: No recent alcohol, tobacco, or IV drug use. Medications: Amlodipine benazepril 10/40 at bedtime, levothyroxine 75 mcg daily, metformin 500 mg tw ice daily, aspirin 81 mg daily, atorvastatin 80 mg at bedtime, fluoxetine 10 mg daily, vitamin D3 200 0 units daily, glimepiride 4 mg daily, Krill oil 500 mg softgel daily, multivitamin daily, Xarelto 2. 5 mg twice daily, vancomycin and vitamin E as well. Review of Systems: The patient reports diffuse weakness, some joint pain, myalgias, arthralgias, and intermittent and on going confusion, but that is at baseline. Physical Examination: Vital Signs: Blood pressure 148/84, pulse 90, respiratory rate 15, temperature 97.2, oxygen saturati on 97% to 99% on room air, weight 179 pounds, height 6 feet 2 inches. General: Mr. France is resting comfortably in ICU bed. He is in no significant distress. He does h ave some bruising in the extremities. He does appear unkempt. HEENT: He is otherwise normocephalic and atraumatic. Sclerae appear anicteric. Oropharynx is moist . Neck: Supple. Chest: Clear. Heart: Regular. Extremities: Mild edema in lower extremities with no cyanosis or clubbing. Neurologic: He is alert and oriented to person and situation. He did follow commands appropriately. He has no focal cranial nerve, motor, coordination, sensation, or reflex deficits. Assessment: Mr. France is an 86-year-old patient with resolving likely metabolic encephalopathy and possible toxic encephalopathy as well. He does not have a stroke by clinical exam and by MRI. No cl ear evidence of any seizure activity as well, although he has not had any EEG. Plan: No additional neurological workup at this point. The patient once medically stable, may be di scharged back to family and continue management of his comorbid conditions and if need be, he can fol low up with Dr. Dumont in the outpatient clinic within the next month or as needed. JOE/GARRET Voice ID: [id number] Report ID: [id number]
[2022-01-20] MEDS: LEVOTHYROXINE SOD 0.075 MG TAB PO SCH (06:05)
[2022-01-20 06:10] LABS: Hematocrit 39.6 % (39.6-49.0); Lymphocytes % 9.8 % (15.3-44.8); MCV 93.3 fL (80-100); MPV 8.9 fL (7.6-11.3); RBC Red Blood Cell Count 4.24 M/uL (4.33-5.43)
[2022-01-20 06:22] LABS: Phosphorus 2.9 mg/dL (2.5-4.9); Potassium 3.2 mmol/L (3.5-5.1)
[2022-01-20 06:36] LABS: Magnesium 1.8 mg/dL (1.8-2.4)
[2022-01-20] MEDS: KCL 20 MEQ/100 mL IVPB 20 MEQ/100 ML BAG IV SCH ×2 (07:01→08:26)
[2022-01-20] MEDS: INSULIN -REGULAR HUMAN 50 UNIT/0.5 ML ML SQ SCH ×4 (07:30→20:38)
--- NOTE | 2022-01-20 07:53 | RAD REPORT ---
EXAM DESCRIPTION: RAD - Chest Single View - 01/20/2022 5:33 am CLINICAL HISTORY: pneumonia COMPARISON: Portable January 18, portable January 16 TECHNIQUE: AP portable chest image was obtained 01/20/2022 5:33 am . FINDINGS: Lung volumes remain low. No new or progressive lung parenchymal process identifiable. Prom inent interstitial pattern is stable. Vague opacities in the mid left lung field not clearly differen t when adjusting for low lung volume and under penetrated technique. Right-sided PICC line remains in place with the tip in the right subclavian vein. Heart and vasculature are normal. No measurable pleural effusion and no pneumothorax. No acute bony abnormality seen. No acute aortic findings suspected. IMPRESSION: No new or progressive lung parenchymal process seen. Right-sided PICC line remains in place with the tip in the right subclavian vein.
[2022-01-20] MEDS ORDERED: MAGNESIUM SULFATE 1 gm IVPB 1 GM/100 ML BAG IV ONE (08:00)
[2022-01-20] MEDS: FLUOXETINE 10 MG CAP PO SCH (08:27)
[2022-01-20] MEDS: ASPIRIN 81 MG CHEWABLE TABLET PO SCH (08:27)
[2022-01-20] MEDS: DOXYCYCLINE 100 MG CAP PO SCH ×2 (08:27→20:37)
[2022-01-20] MEDS: BENAZEPRIL 20 MG TAB PO SCH (08:27)
[2022-01-20] MEDS: RIVAROXABAN 2.5 MG PO SCH ×2 (08:28→20:37)
[2022-01-20] MEDS: AMLODIPINE 10 MG TAB PO SCH (08:28)
[2022-01-20] MEDS: COLLAGENASE 30 GM OINTMENT TOP SCH (08:29)
--- NOTE | 2022-01-20 13:16 | P.PN ---
Date of Service: 01/20/22 Subjective Subjective: Patient is still confused. He is starting to wake up a little more. We are holding his sedation. Soft restraints have been applied. Appreciate neurology input. Will start physical therapy and will start arranging for half-way facility placement. Cultures have been negative. Continuing with antibiotics at this time. Most likely etiology is metabolic and medication induced from the haldol and Geodon he has received throughout his hospitalization. Hopefully, onc e this is out of his system his mutation will improve now that is hypercalcemia is corrected. Review of Systems is unable to be obtained Physical Examination - Vital Signs Reviewed - Physical Exam General: Alert, In no apparent distress; trying to answer some of my questions Respiratory: Clear to auscultation bilaterally, Normal air movement Cardiovascular: Regular rate/rhythm, Normal S1 S2 Gastrointestinal: Normal bowel sounds, No tenderness Neurological: more awake and alert Assessment & Plan - Problems (Diagnosis) (1) Altered mental status/Metabolic encephalopathy Current Visit: No Status: Acute (2) CVA (cerebral vascular accident) Current Visit: No Status: chronic (3) Depression Current Visit: No Status: chronic (4) Hypercalcemia Current Visit: No Status: Acute (5) Hx of multiple myeloma Current Visit: No Status: Acute (6) Hypertension Current Visit: No Status: Acute (7) Hypothyroidism Current Visit: No Status: Acute (8) Presence of Watchman left atrial appendage closure device/Atrial fibrillation Current Visit: No Status: Acute (9) Diabetes mellitus Current Visit: No Status: Chronic - Plan Continue with plan of care as mentioned below: -CONTINUE WITH IV HYDRATION ALONG WITH LASIX; REPEAT CALCIUM LEVEL -CONTINUE WITH IV ANTIBIOTICS -CULTURES ARE NEGATIVE -MONITOR RENAL FUNCTION AND ELECTROLYTES -MRI OF THE BRAIN WAS NEGATIVE -NEUROLOGY CONSULTATION APPRECIATED; -BED CHECK IN PLACE; SOFT RESTRAINTS; REFRAIN FROM ANTIPSYCHOTICS -PHYSICAL THERAPY EVALUATION ONCE MENTATION IS IMPROVED; WILL NEED SNF PLACEMENT Time Spent Managing PTS Care (In Minutes): 35
--- NOTE | 2022-01-20 13:16 | P.PN ---
Date of Service: 01/19/22 Subjective Subjective: Pt overmedicated and unable to examine; will hold antipsychotics Review of Systems is unable to be obtained Physical Examination - Vital Signs Reviewed - Physical Exam General: unarousable Respiratory: Clear to auscultation bilaterally, Normal air movement Cardiovascular: Regular rate/rhythm, Normal S1 S2 Gastrointestinal: Normal bowel sounds, No tenderness Neurological: difficult to awaken; Assessment & Plan - Problems (Diagnosis) (1) Altered mental status/Metabolic encephalopathy Current Visit: No Status: Acute (2) CVA (cerebral vascular accident) Current Visit: No Status: chronic (3) Depression Current Visit: No Status: chronic (4) Hypercalcemia Current Visit: No Status: Acute (5) Hx of multiple myeloma Current Visit: No Status: Acute (6) Hypertension Current Visit: No Status: Acute (7) Hypothyroidism Current Visit: No Status: Acute (8) Presence of Watchman left atrial appendage closure device/Atrial fibrillation Current Visit: No Status: Acute (9) Diabetes mellitus Current Visit: No Status: Chronic - Plan Continue with plan of care as mentioned below: -IV HYDRATION w/ LASIX; CALCIUM IMPROVED -CONTINUE W/ IV ANTIBIOTICS -CULTURES ARE PENDING -MONITOR LABS -MRI OF THE BRAIN PENDING -NEUROLOGY CONSULTATION -BED CHECK IN PLACE -PHYSICAL THERAPY EVALUATION ONCE MENTATION IS IMPROVED Time Spent Managing PTS Care (In Minutes): 35
--- NOTE | 2022-01-20 14:00 | PN ---
Subjective: The patient is lying in bed. No new acute event. Chart reviewed. States confused and somnolent. No acute event overnight. Objective: Vital Signs: Temperature 96.9, pulse 77, respirations 18, blood pressure 99/64. Lungs: Basal crackles. Heart: S1, S2. Regular. Abdomen: Soft, nontender. Bowel sounds present. Extremities: No edema. Laboratory Data: Reviewed. Assessment And Plan: 1.Osteomyelitis of the foot. 2.Altered mental status, most likely metabolic. 3.Stroke. 4.Multiple myeloma. 5.Leukocytosis, controlled. 6.Anemia of chronic disease. Continue current treatment including doxycycline. Wound care as per s urgical team. We will follow the patient as needed. NF/MODL Voice ID: [id number] Report ID: [id number]
[2022-01-20] MEDS ORDERED: KCL 20 MEQ/100 mL IVPB 20 MEQ/100 ML BAG IV SCH (19:00)
[2022-01-20] MEDS: ATORVASTATIN 80 MG TAB PO SCH (20:37)
[2022-01-20] MEDS: QUETIAPINE 25 MG TAB PO SCH (20:37)
[2022-01-21] MEDS: FUROSEMIDE 20 MG/ 2ML VIAL IV SCH ×2 (00:19→08:35)
[2022-01-21] MEDS ORDERED: MIDAZOLAM HCL 2 MG/2 ML INJ IV PRN ×2 (00:33→20:08)
[2022-01-21] MEDS: LEVOTHYROXINE SOD 0.075 MG TAB PO SCH (05:33)
[2022-01-21] MEDS: NA CHLORIDE 0.9% 1,000 ML IV SCH ×2 (05:33→17:00)
[2022-01-21 06:30] LABS: Absolute Lymphocytes (CBC) 1.5 K/uL (0.7-4.9); Hematocrit 39.8 % (39.6-49.0); Lymphocytes % 13.9 % (15.3-44.8); MCV 91.4 fL (80-100); MPV 8.8 fL (7.6-11.3); RBC Red Blood Cell Count 4.36 M/uL (4.33-5.43)
[2022-01-21 06:49] LABS: Magnesium 2.1 mg/dL (1.8-2.4); Phosphorus 3.7 mg/dL (2.5-4.9); Potassium 3.3 mmol/L (3.5-5.1)
[2022-01-21] MEDS: INSULIN -REGULAR HUMAN 50 UNIT/0.5 ML ML SQ SCH ×4 (08:33→20:11)
[2022-01-21] MEDS: KCL 20 MEQ/100 mL IVPB 20 MEQ/100 ML BAG IV SCH ×2 (08:35→11:41)
[2022-01-21] MEDS: ASPIRIN 81 MG CHEWABLE TABLET PO SCH (08:35)
[2022-01-21] MEDS: BENAZEPRIL 20 MG TAB PO SCH (08:36)
[2022-01-21] MEDS: RIVAROXABAN 2.5 MG PO SCH ×2 (08:36→20:11)
[2022-01-21] MEDS: DOXYCYCLINE 100 MG CAP PO SCH ×2 (08:36→20:11)
[2022-01-21] MEDS: FLUOXETINE 10 MG CAP PO SCH (08:36)
--- NOTE | 2022-01-21 09:35 | RAD REPORT ---
EXAM DESCRIPTION: [facility] Single View01/21/2022 5:20 am CLINICAL HISTORY: Chest pain COMPARISON: January 20, 2022 FINDINGS: Calcified granuloma right lung. Calcified hilar lymph nodes. The lungs appear clear of acute infiltrate. The heart is normal size PICC line has its tip in the right subclavian vein
--- NOTE | 2022-01-21 13:13 | P.PN ---
Subjective Date of Service: 01/21/22 Chief Complaint: Acute Metabolic Encephalopathy No change patient is unresponsive Review of Systems is unable to be obtained Physical Examination - Vital Signs Temperature: 97.3 F Blood Pressure: 153/80 Pulse: 91 Respirations: 17 Pulse Ox (%): 100 - Physical Exam General: Unresponsive Neck: Supple Respiratory: Clear to auscultation bilaterally Cardiovascular: No edema Gastrointestinal: Normal bowel sounds - Studies Microbiology Data (last 24 hrs): 01/16/22 06:20 Blood - Blood Aerobic Blood Culture - Final No growth in 5 days. 01/16/22 06:20 Blood - Blood Anaerobic Blood Culture - Final No growth in 5 days. 01/16/22 05:45 Blood - Blood Aerobic Blood Culture - Final No growth in 5 days. 01/16/22 05:45 Blood - Blood Anaerobic Blood Culture - Final No growth in 5 days. Medications List Reviewed: Yes Assessment And Plan - Current Problems (Diagnosis) (1) Metabolic encephalopathy Current Visit: Yes Status: Acute Plan: Patient is encephalopathic CBC is now normal has mild hypokalemia normal oxygenation patient's cultures are all negative chest x-ray is negative MRI of the brain does not show any evidence of stroke history of multiple myeloma add IV thiamine DC diuretics DC Seroquel (2) Acute osteomyelitis of phalanx of foot Current Visit: No Status: Acute Plan: Patient has osteomyelitis of the left for her to continue with Doxy Qualifiers: Laterality: left Qualified Code(s): M86.172 - Other acute osteomyelitis, left ankle and foot
[2022-01-21] MEDS: AMLODIPINE 10 MG TAB PO SCH (13:24)
[2022-01-21] MEDS: COLLAGENASE 30 GM OINTMENT TOP SCH (13:25)
[2022-01-21] MEDS: THIAMINE 200 MG/2 ML INJ IVP SCH ×2 (15:06→20:11)
[2022-01-21] MEDS: ATORVASTATIN 80 MG TAB PO SCH (20:11)
[2022-01-22] MEDS ORDERED: KCL 20 MEQ/100 mL IVPB 20 MEQ/100 ML BAG IV SCH (02:00)
[2022-01-22] MEDS: LEVOTHYROXINE SOD 0.075 MG TAB PO SCH (05:26)
[2022-01-22 06:41] LABS: Magnesium 1.9 mg/dL (1.8-2.4); Phosphorus 2.9 mg/dL (2.5-4.9); Potassium 3.6 mmol/L (3.5-5.1)
[2022-01-22] MEDS: INSULIN -REGULAR HUMAN 50 UNIT/0.5 ML ML SQ SCH ×4 (07:19→21:30)
[2022-01-22] MEDS: FLUOXETINE 10 MG CAP PO SCH (08:05)
[2022-01-22] MEDS: DOXYCYCLINE 100 MG CAP PO SCH ×2 (08:07→20:02)
[2022-01-22] MEDS: BENAZEPRIL 20 MG TAB PO SCH (08:08)
[2022-01-22] MEDS: ASPIRIN 81 MG CHEWABLE TABLET PO SCH (08:10)
[2022-01-22] MEDS: AMLODIPINE 10 MG TAB PO SCH (08:10)
[2022-01-22] MEDS: THIAMINE 200 MG/2 ML INJ IVP SCH ×2 (08:11→20:03)
[2022-01-22] MEDS: RIVAROXABAN 2.5 MG PO SCH ×2 (08:11→20:01)
[2022-01-22] MEDS: NA CHLORIDE 0.9% 1,000 ML IV SCH ×2 (08:21→17:50)
[2022-01-22] MEDS ORDERED: POTASSIUM 25 MEQ EFFERV TAB PO ONE (09:00)
[2022-01-22] MEDS ORDERED: PAMIDRONATE DISOD 30 MG VIAL IV ONE (10:11)
--- NOTE | 2022-01-22 10:16 | P.PN ---
Subjective Date of Service: 01/22/22 Chief Complaint: Acute Metabolic Encephalopathy hypercalcemia Patient continues to remain very altered very confused eating and drinking now is hypercalcemic mildly hyponatremic Review of Systems is unable to be obtained Physical Examination - Vital Signs Temperature: 97.1 F Blood Pressure: 148/71 Pulse: 87 Respirations: 14 Pulse Ox (%): 98 - Physical Exam General: Alert, Confused Respiratory: Clear to auscultation bilaterally Cardiovascular: No edema, Normal S1 S2 - Studies Microbiology Data (last 24 hrs): 01/16/22 06:20 Blood - Blood Aerobic Blood Culture - Final No growth in 5 days. 01/16/22 06:20 Blood - Blood Anaerobic Blood Culture - Final No growth in 5 days. 01/16/22 05:45 Blood - Blood Aerobic Blood Culture - Final No growth in 5 days. 01/16/22 05:45 Blood - Blood Anaerobic Blood Culture - Final No growth in 5 days. Medications List Reviewed: Yes Assessment And Plan - Current Problems (Diagnosis) (1) Metabolic encephalopathy Current Visit: Yes Status: Acute Plan: Metabolic encephalopathy has now has hypercalcemia (2) Acute osteomyelitis of phalanx of foot Current Visit: No Status: Acute Plan: Patient has osteomyelitis of the left for her to continue with Doxy Qualifiers: Laterality: left Qualified Code(s): M86.172 - Other acute osteomyelitis, left ankle and foot (3) Hypercalcemia Current Visit: Yes Status: Acute Plan: Patient has multiple myeloma associated hypercalcemia we will resume IV fluids IV Lasix IV pamidronate renal function is slightly worse medication list reviewed will DC JOZEF inhibitor's for now
[2022-01-22] MEDS ORDERED: PAMIDRONATE 90 MG in NA CHLORIDE 0.9% 250 ML IV ONE (11:00)
[2022-01-22] MEDS: FUROSEMIDE 20 MG/ 2ML VIAL IV SCH (12:10)
[2022-01-22] MEDS: COLLAGENASE 30 GM OINTMENT TOP SCH (16:32)
[2022-01-22] MEDS: LACTULOSE 20 GM/30 ML UCUP PO PRN (17:46)
[2022-01-23 05:14] LABS: Bilirubin Total 1.1 mg/dL (0.2-1.0)
[2022-01-23 05:15] LABS: Albumin 2.7 g/dL (3.4-5.0); Protein, Total 7.4 g/dL (6.4-8.2)
[2022-01-23] MEDS: NA CHLORIDE 0.9% 1,000 ML IV SCH (05:39)
[2022-01-23] MEDS: LEVOTHYROXINE SOD 0.075 MG TAB PO SCH (05:40)
[2022-01-23] MEDS ORDERED: POTASSIUM 25 MEQ EFFERV TAB PO ONE (07:00)
[2022-01-23] MEDS ORDERED: KCL 20 MEQ/100 mL IVPB 20 MEQ/100 ML BAG IV SCH (07:00)
[2022-01-23] MEDS: INSULIN -REGULAR HUMAN 50 UNIT/0.5 ML ML SQ SCH ×4 (07:10→20:29)
[2022-01-23] MEDS: DOXYCYCLINE 100 MG CAP PO SCH ×2 (08:32→20:34)
[2022-01-23] MEDS: RIVAROXABAN 2.5 MG PO SCH ×2 (08:32→20:34)
[2022-01-23] MEDS: FUROSEMIDE 20 MG/ 2ML VIAL IV SCH (08:33)
[2022-01-23] MEDS: AMLODIPINE 10 MG TAB PO SCH (08:33)
[2022-01-23] MEDS: THIAMINE 200 MG/2 ML INJ IVP SCH ×2 (08:33→20:29)
[2022-01-23] MEDS: ASPIRIN 81 MG CHEWABLE TABLET PO SCH (08:33)
[2022-01-23] MEDS: FLUOXETINE 10 MG CAP PO SCH (08:33)
[2022-01-23] MEDS: D5W 1,000 ML IV SCH ×2 (08:34→20:29)
--- NOTE | 2022-01-23 10:35 | P.PN ---
Subjective Date of Service: 01/23/22 Chief Complaint: Acute Metabolic Encephalopathy hypercalcemia No change patient is becoming increasingly agitated not sleeping now hypernatremic Review of Systems is unable to be obtained Physical Examination - Vital Signs Temperature: 97.2 F Blood Pressure: 164/88 Pulse: 94 Respirations: 20 Pulse Ox (%): 98 - Physical Exam General: Alert, Delirious Respiratory: Clear to auscultation bilaterally Cardiovascular: No edema, Normal pulses - Studies Medications List Reviewed: Yes Assessment And Plan - Current Problems (Diagnosis) (1) Metabolic encephalopathy Current Visit: Yes Status: Acute Plan: Metabolic encephalopathy slight decline in his calcium medronate was given (2) Acute osteomyelitis of phalanx of foot Current Visit: No Status: Acute Plan: Patient has osteomyelitis of the left for her to continue with Doxy Qualifiers: Laterality: left Qualified Code(s): M86.172 - Other acute osteomyelitis, left ankle and foot (3) Hypercalcemia Current Visit: Yes Status: Acute Plan: Changed to D5 water patient is becoming hyponatremic DC diuretics patient's corrected calcium is 2.5 is very high still
[2022-01-23] MEDS: COLLAGENASE 30 GM OINTMENT TOP SCH (17:08)
[2022-01-23] MEDS: LACTULOSE 20 GM/30 ML UCUP PO PRN (20:29)
[2022-01-23] MEDS: MELATONIN 5 MG TABLET PO PRN (20:29)
[2022-01-23] MEDS: KCL 20 MEQ/100 mL IVPB 20 MEQ/100 ML BAG IV SCH (23:28)
[2022-01-24] MEDS: KCL 20 MEQ/100 mL IVPB 20 MEQ/100 ML BAG IV SCH ×3 (01:58→11:43)
[2022-01-24] MEDS: D5W 1,000 ML IV SCH ×3 (04:00→10:42)
[2022-01-24 05:36] LABS: Albumin 2.7 g/dL (3.4-5.0); Magnesium 1.7 mg/dL (1.8-2.4); Phosphorus 2.9 mg/dL (2.5-4.9); Potassium 3.4 mmol/L (3.5-5.1); Protein, Total 7.1 g/dL (6.4-8.2)
[2022-01-24] MEDS: LEVOTHYROXINE SOD 0.075 MG TAB PO SCH (05:57)
[2022-01-24] MEDS ORDERED: MAGNESIUM SULFATE 1 gm IVPB 1 GM/100 ML BAG IV ONE (07:00)
[2022-01-24] MEDS: INSULIN -REGULAR HUMAN 50 UNIT/0.5 ML ML SQ SCH ×4 (07:59→20:47)
[2022-01-24] MEDS: ASPIRIN 81 MG CHEWABLE TABLET PO SCH (07:59)
[2022-01-24] MEDS: AMLODIPINE 10 MG TAB PO SCH (07:59)
[2022-01-24] MEDS: THIAMINE 200 MG/2 ML INJ IVP SCH ×2 (08:00→20:46)
[2022-01-24] MEDS: DOXYCYCLINE 100 MG CAP PO SCH ×2 (08:01→20:46)
[2022-01-24] MEDS: FLUOXETINE 10 MG CAP PO SCH (08:01)
[2022-01-24] MEDS: RIVAROXABAN 2.5 MG PO SCH ×2 (08:01→20:46)
[2022-01-24] MEDS: COLLAGENASE 30 GM OINTMENT TOP SCH (08:01)
--- NOTE | 2022-01-24 10:39 | P.PN ---
Subjective Date of Service: 01/24/22 Chief Complaint: Acute Metabolic Encephalopathy hypercalcemia Subjective: No new changes This morning, he appears calm and cooperative. He is alert and oriented x 1 to self, which is baseline per RN. He appears to be sun-downing overnight, requiring restraints. He was taken off of restraints earlier this morning. Review of Systems is unable to be obtained Physical Examination - Vital Signs Temperature: 97.1 F Blood Pressure: 113/88 Pulse: 75 Respirations: 18 Pulse Ox (%): 98 - Studies Medications List Reviewed: Yes Assessment And Plan - Plan - Physical Exam General: Alert, In no apparent distress, Oriented x1, Cooperative HEENT: Atraumatic, PERRLA, Mucous membr. moist/pink, EOMI, Sclerae nonicteric Neck: Supple, JVD not distended Respiratory: Clear to auscultation bilaterally, Normal air movement Cardiovascular: No edema, Regular rate/rhythm, Normal S1 S2, No gallops, No rubs, No murmurs Gastrointestinal: Normal bowel sounds, Soft and benign, Non-distended, No tenderness, No rebound, No guarding Musculoskeletal: No clubbing Integumentary: Other (necrotic appearing ulcer on top of left big toe. No preet drainage appreciated.) Neurological: Cranial nerves 3-12 intact # Acute Toxic Metabolic Encephalopathy likely secondary to Severe Sepsis vs Hypercalcemia vs Recrudensce of Prior CVA # Hypercalcemia suspect secondary to Multiple Myeloma # Hypernatremia due to Dehydration - Evaluation thus far: - Initial labs = Na+ 140, Ca2+ 12.1, CO2 22, Glucose 220, BUN 29 - VBG = pH 7.46. PCO2 37.1, PO2 75.2 - Blood cultures x 2 = NGTD - Urinalysis = trace blood, trace leukocyte esterase - CT head = no "acute intracranial pathology" - MRI brain = "negative for acute CVA or other acute intracranial abnormality." - Management plan: - Infectious Diseases consulted and spoke with Dr. Gabriel - Recommends continue doxycycline - Treatment for sepsis as mentioned below - On D5W @ 100 mL/hr, reduce to 50 mL/hr - q4hr neuro checks - Start quetiapine nightly given sun-downing # Severe Sepsis possibly secondary to Osteomyelitis +/- Urinary Tract Infection He meets sepsis criteria based on HR > 90 bpm and WBC > 12,000, and the suspected source is a UTI vs left big toe osteomyelitis. Severe sepsis is suspected due to concern for tissue hypoperfusion/organ dysfunction based on coagulopathy (INR > 1.5) and lactic acid > 2 mmol/L. - Sepsis order set was initiated in ED - Lactate was 3.7 -> 1.8 - Blood cultures drawn before antibiotics were given - Broad spectrum antibiotics started in ED: Ceftriaxone -> Doxycycline - Left foot x-ray = "Absence of the first proximal phalanx head with irregular cortical margin of the medial aspect first distal phalanx base. The bone loss is new from the September examination. No surgical history was detailed. 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 No other gallbladder or biliary tree abnormality identified. Liver is normal size. No focal liver lesions identifiable. Pancreas is too obscured by bowel for assessment. " # Chronic Atrial Fibrillation s/p Watchman Device # S/P Lower Extremity Shunt - Rate-controlled without medication - Continue home rivaroxaban # Hypertension - Continue home amlodipine # Hypothyroidism - Continue home levothyroxine David Prince M.D. Discharge Plan: Fdc
--- NOTE | 2022-01-24 12:31 | PN ---
Subjective: The patient is lying in bed. No new acute event as per staff. The patient remained con fused. Objective: Vital Signs: Temperature 97, pulse 95, respirations 18, blood pressure 113/88. Examinat ion unchanged. Laboratory Data: Shows WBC 10.9, hemoglobin 13.6, platelets are 178. Chemistry is 23, 1.5. Micro d osiris, no new cultures at this time. Assessment And Plan: Osteomyelitis of the foot, improving. Continue current treatment. Altered men heber status, possibly metabolic. Leukocytosis improved. Anemia of chronic disease, multiple myeloma, stroke. No other recommendation at this time. We will follow the patient as needed. NF/MODL Voice ID: [id number] Report ID: [id number]
[2022-01-24] MEDS: MELATONIN 5 MG TABLET PO PRN (20:46)
[2022-01-24] MEDS: QUETIAPINE 25 MG TAB PO SCH (20:46)
[2022-01-24] MEDS ORDERED: KCL 20 MEQ/100 mL IVPB 20 MEQ/100 ML BAG IV SCH (21:00)
[2022-01-25] MEDS: D5W 1,000 ML IV SCH (01:19)
[2022-01-25 06:11] LABS: Albumin 2.4 g/dL (3.4-5.0); Bilirubin Total 0.8 mg/dL (0.2-1.0); Phosphorus 2.6 mg/dL (2.5-4.9); Potassium 3.3 mmol/L (3.5-5.1); Protein, Total 6.5 g/dL (6.4-8.2)
[2022-01-25] MEDS: LEVOTHYROXINE SOD 0.075 MG TAB PO SCH (06:21)
[2022-01-25] MEDS: INSULIN -REGULAR HUMAN 50 UNIT/0.5 ML ML SQ SCH ×4 (06:22→20:28)
[2022-01-25] MEDS: RIVAROXABAN 2.5 MG PO SCH (09:00)
[2022-01-25] MEDS: ASPIRIN 81 MG CHEWABLE TABLET PO SCH (09:00)
[2022-01-25] MEDS: COLLAGENASE 30 GM OINTMENT TOP SCH (09:00)
[2022-01-25] MEDS ORDERED: POTASSIUM CL SA 10 MEQ TAB PO ONE (09:00)
[2022-01-25] MEDS: AMLODIPINE 10 MG TAB PO SCH (09:00)
[2022-01-25] MEDS ORDERED: SODIUM CHLORIDE 0.9% 10ML INJ IV PRN (10:04)
[2022-01-25] MEDS: FLUOXETINE 10 MG CAP PO SCH (10:08)
[2022-01-25] MEDS: DOXYCYCLINE 100 MG CAP PO SCH ×2 (10:08→20:27)
[2022-01-25] MEDS: THIAMINE 200 MG/2 ML INJ IVP SCH ×2 (10:09→20:29)
[2022-01-25] MEDS: PANTOPRAZOLE 40 MG INJ IVP SCH ×2 (11:00→20:29)
[2022-01-25] MEDS: KCL 20 MEQ/100 mL IVPB 20 MEQ/100 ML BAG IV SCH ×2 (11:01→13:33)
--- NOTE | 2022-01-25 13:20 | P.PN ---
Subjective Date of Service: 01/25/22 Chief Complaint: Acute Metabolic Encephalopathy hypercalcemia Subjective: Improving No acute events overnight. He is alert and oriented x 1 to self, which is baseline per RN. No episodes of sun-downing overnight. RN noted bright red blood in his stool this morning. He denies any concerns or symptoms. Review of Systems is unable to be obtained Physical Examination - Vital Signs Temperature: 96.7 F Blood Pressure: 104/57 Pulse: 74 Respirations: 15 Pulse Ox (%): 98 - Studies Medications List Reviewed: Yes Assessment And Plan - Plan - Physical Exam General: Alert, In no apparent distress, Oriented x1, Calm, Cooperative HEENT: Atraumatic, PERRLA, Mucous membr. moist/pink, EOMI, Sclerae nonicteric Neck: Supple, JVD not distended Respiratory: Clear to auscultation bilaterally, Normal air movement Cardiovascular: No edema, Regular rate/rhythm, Normal S1 S2, No gallops, No rubs, No murmurs Gastrointestinal: Normal bowel sounds, Soft and benign, Non-distended, No tenderness, No rebound, No guarding Musculoskeletal: No clubbing Integumentary: Other (necrotic appearing ulcer on top of left big toe. 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 Ryder's GENERAL MAINTENANCE TECHNICIAN - recommendation appreciated - Ordered STAT CBC, INR, type & screen - Transfuse for Hgb < 7.0 - Pantoprazole 40 mg IV BID - NPO - Hold rivaroxaban for now # Acute Toxic Metabolic Encephalopathy likely secondary to Severe Sepsis vs Hypercalcemia vs Recrudensce of Prior CVA (improved) # Hypercalcemia suspect secondary to Multiple Myeloma # Hypernatremia due to Dehydration (resolved) - Evaluation thus far: - Initial labs = Na+ 140, Ca2+ 12.1, CO2 22, Glucose 220, BUN 29 - VBG = pH 7.46. PCO2 37.1, PO2 75.2 - Blood cultures x 2 = NGTD - Urinalysis = trace blood, trace leukocyte esterase - CT head = no "acute intracranial pathology" - MRI brain = "negative for acute CVA or other acute intracranial abnormality." - Management plan: - Infectious Diseases consulted and spoke with Dr. Gabriel - Recommends continue doxycycline - Treatment for sepsis as mentioned below - Discontinue D5W - q4hr neuro checks - Start quetiapine nightly given sun-downing - improved # Severe Sepsis possibly secondary to Osteomyelitis +/- Urinary Tract Infection He meets sepsis criteria based on HR > 90 bpm and WBC > 12,000, and the suspected source is a UTI vs left big toe osteomyelitis. Severe sepsis is suspected due to concern for tissue hypoperfusion/organ dysfunction based on coagulopathy (INR > 1.5) and lactic acid > 2 mmol/L. - Sepsis order set was initiated in ED - Lactate was 3.7 -> 1.8 - Blood cultures drawn before antibiotics were given - Broad spectrum antibiotics started in ED: Ceftriaxone -> Doxycycline - Left foot x-ray = "Absence of the first proximal phalanx head with irregular cortical margin of the medial aspect first distal phalanx base. The bone loss is new from the September examination. No surgical history was detailed. 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 No other gallbladder or biliary tree abnormality identified. Liver is normal size. No focal liver lesions identifiable. Pancreas is too obscured by bowel for assessment. " # Chronic Atrial Fibrillation s/p Watchman Device # S/P Lower Extremity Shunt - Rate-controlled without medication - Hold rivaroxaban given concern for hematochezia # Hypertension - Continue home amlodipine # Hypothyroidism - Continue home levothyroxine David Prince M.D.
[2022-01-25] MEDS ORDERED: HALOPERIDOL LACT 5 MG/ML INJ IV PRN (14:08)
--- NOTE | 2022-01-25 14:26 | PN ---
Subjective: The patient is lying in bed, awake, not in any acute distress at this time as per staff. The patient is having bloody stools, for which GI team has been notified. Objective: Vital Signs: Temperature 96.7, pulse 74, respiration 15, blood pressure 104/57. Lungs: Basal crackles. Heart: S1, S2. Regular. Abdomen: Soft, nontender. Bowel sounds present. Extremities: Trace edema. Laboratory Data: No new labs available at this time, except chemistry shows sodium 134, potassium 3. 3, chloride 103, bicarb 26, BUN 19, creatinine 1.38, glucose is 414. Assessment And Plan: 1.Osteomyelitis of the foot, improving. Continue antibiotic and supportive care. 2.Leukocytosis, improved. 3.Anemia of chronic disease. 4.Multiple myeloma. 5.Stroke. 6.Altered mental status. Continue supportive and symptomatic care. We will monitor the patient for signs of infection with fever and WBC trend. Repeat CBC today. NF/MODL Voice ID: [id number] Report ID: [id number]
[2022-01-25 14:51] LABS: Protime INR 1.37
[2022-01-25 17:16] LABS: Absolute Lymphocytes (CBC) 1.2 K/uL (0.7-4.9); MCV 92.6 fL (80-100); MPV 9.2 fL (7.6-11.3); RBC Red Blood Cell Count 4.32 M/uL (4.33-5.43)
[2022-01-25] MEDS ORDERED: KCL 20 MEQ/100 mL IVPB 20 MEQ/100 ML BAG IV SCH (20:00)
[2022-01-25] MEDS: MELATONIN 5 MG TABLET PO PRN (20:27)
[2022-01-25] MEDS: QUETIAPINE 25 MG TAB PO SCH (20:28)
[2022-01-26 05:09] LABS: Albumin 2.6 g/dL (3.4-5.0); Bilirubin Total 0.7 mg/dL (0.2-1.0); Phosphorus 3.1 mg/dL (2.5-4.9); Potassium 3.8 mmol/L (3.5-5.1); Protein, Total 7.1 g/dL (6.4-8.2)
[2022-01-26] MEDS: LEVOTHYROXINE SOD 0.075 MG TAB PO SCH (05:46)
[2022-01-26] MEDS ORDERED: KCL 20 MEQ/100 mL IVPB 20 MEQ/100 ML BAG IV SCH (06:00)
[2022-01-26] MEDS: INSULIN -REGULAR HUMAN 50 UNIT/0.5 ML ML SQ SCH ×4 (07:30→21:26)
[2022-01-26] MEDS: COLLAGENASE 30 GM OINTMENT TOP SCH (09:00)
[2022-01-26] MEDS: FLUOXETINE 10 MG CAP PO SCH (09:41)
[2022-01-26] MEDS: AMLODIPINE 10 MG TAB PO SCH (09:41)
[2022-01-26] MEDS: PANTOPRAZOLE 40 MG INJ IVP SCH ×2 (09:41→20:34)
[2022-01-26] MEDS: DOXYCYCLINE 100 MG CAP PO SCH ×2 (09:41→20:34)
[2022-01-26] MEDS: THIAMINE 200 MG/2 ML INJ IVP SCH ×2 (09:42→20:34)
--- NOTE | 2022-01-26 11:51 | PN ---
Subjective: The patient is lying in bed, still confused, more awake. As per staff, the patient stil l not following commands every so often, but at this point, the patient was able to follow simple com mands. Objective: Vital Signs: Temperature 97, pulse 81, respiration 20, blood pressure 149/80. Lungs: Basal crackles. Heart: S1, S2. Regular. Abdomen: Soft, nontender. Bowel sounds present. Extremity: Right foot, left big toe wound noted with inflammation and greenish riddle discoloration of the edges. Laboratory Data: Shows WBC 15,000, hemoglobin 12.9, platelets are 191. Chemistry shows sodium 145, potassium 3.8, chloride 113, bicarb 27, BUN 24, creatinine 1.4, glucose is 123, albumin is 2.6. Assessment And Plan: 1.Left big toe wound with possible most likely osteomyelitis. Consider getting wound culture. 2.Leukocytosis. Repeat chest x-ray for possible aspiration as the patient is having leukocytosis. We will hold off on antibiotic at this time. Consider using silver alginate to the wound site for lo britney treatment of infection. Continue supportive care and wound care. 3.Anemia of chronic disease, renal insufficiency, moderate protein-calorie malnourishment, altered m ental status. We will follow the patient as needed. Monitor the patient for signs of infection with WBC and fever trends. NF/MODL Voice ID: [id number] Report ID: [id number]
--- NOTE | 2022-01-26 12:41 | RAD REPORT ---
EXAM DESCRIPTION: RAD - Chest Single View - 01/26/2022 11:44 am CLINICAL HISTORY: elevated WBC, r/o aspiration pneumonia Chest pain. COMPARISON: Chest Single View dated 01/21/2022; Chest Single View dated 01/20/2022; Chest Single View dated 01/18/2022; Chest Single View dated 01/16/2022; Chest Single View dated 10/13/2020 FINDINGS: Portable technique limits examination quality. Mild linear atelectasis is present left lung base. No focal infiltrate seen to indicate pneumonia. Ob long calcified nodule seen right mid lung appearing unchanged since prior studies. The heart is zara l in size. No displaced fractures.Tip of the right PICC line is probably in the right subclavian vein . IMPRESSION: No acute intrathoracic process suspected. Right PICC line tip is likely in the right subclavian vein.
[2022-01-26] MEDS: QUETIAPINE 25 MG TAB PO SCH (20:34)
[2022-01-26 21:59] LABS: Specific Gravity 1.012 (1.005-1.030); Urine Bilirubin NEGATIVE (Negative); Urine Blood Negative (Negative); Urine Clarity Clear (Clear); Urine Color Light-Yellow (Yellow); Urine Glucose 1+ (Negative); Urine Mucus Slight /HPF (None Seen); Urine Protein NEGATIVE (Negative); Urine RBC <5 /HPF (None Seen); Urine Urobilinogen Normal (Normal)
--- NOTE | 2022-01-26 23:02 | P.PN ---
Subjective Date of Service: 01/26/22 Chief Complaint: Acute Metabolic Encephalopathy hypercalcemia No acute events overnight. He remains alert and oriented x 1 to self, which is baseline per RN. No episodes of sun-downing overnight per RN. WBC up-trended this morning, but there is no clear evidence of infection at this time. He denies any concerns or symptoms. Review of Systems 10-point ROS is otherwise unremarkable General: Weakness (generalized) Physical Examination - Vital Signs Temperature: 97.3 F Blood Pressure: 126/76 Pulse: 72 Respirations: 20 Pulse Ox (%): 99 - Studies Medications List Reviewed: Yes Assessment And Plan - Plan - Physical Exam General: Alert, In no apparent distress, Oriented x1, Calm, Cooperative HEENT: Atraumatic, PERRLA, Mucous membr. moist/pink, EOMI, Sclerae nonicteric Neck: Supple, JVD not distended Respiratory: Clear to auscultation bilaterally, Normal air movement Cardiovascular: No edema, Regular rate/rhythm, Normal S1 S2, No gallops, No rubs, No murmurs Gastrointestinal: Normal bowel sounds, Soft and benign, Non-distended, No tenderness, No rebound, No guarding Musculoskeletal: No clubbing Integumentary: Other (ulcer on top of left big toe is clean, dry, and intact. 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 Ryder's POWDER COAT PAINTER - recommendation appreciated - Ordered STAT CBC, INR, type & screen - Transfuse for Hgb < 7.0 - Pantoprazole 40 mg IV BID - NPO - Hold rivaroxaban for now # Acute Toxic Metabolic Encephalopathy likely secondary to Severe Sepsis vs Hypercalcemia vs Recrudensce of Prior CVA (improved) # Hypercalcemia suspect secondary to Multiple Myeloma # Hypernatremia due to Dehydration (resolved) - Evaluation thus far: - Initial labs = Na+ 140, Ca2+ 12.1, CO2 22, Glucose 220, BUN 29 - VBG = pH 7.46. PCO2 37.1, PO2 75.2 - Blood cultures x 2 = NGTD - Urinalysis = trace blood, trace leukocyte esterase - CT head = no "acute intracranial pathology" - MRI brain = "negative for acute CVA or other acute intracranial abnormality." - Management plan: - Infectious Diseases consulted and spoke with Dr. Gabriel - Recommends continue doxycycline - Treatment for sepsis as mentioned below - Discontinue D5W - q4hr neuro checks - Start quetiapine nightly given sun-downing - improved # Severe Sepsis possibly secondary to Osteomyelitis +/- Urinary Tract Infection He meets sepsis criteria based on HR > 90 bpm and WBC > 12,000, and the suspected source is a UTI vs left big toe osteomyelitis. Severe sepsis is suspected due to concern for tissue hypoperfusion/organ dysfunction based on coa gulopathy (INR > 1.5) and lactic acid > 2 mmol/L. - Sepsis order set was initiated in ED - Lactate was 3.7 -> 1.8 - Blood cultures drawn before antibiotics were given - Broad spectrum antibiotics started in ED: Ceftriaxone -> Doxycycline - Left foot x-ray = "Absence of the first proximal phalanx head with irregular cortical margin of the medial aspect first distal phalanx base. The b one loss is new from the September examination. No surgical history was detailed. 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 No other gallbladder or biliary tree abnormality identified. Liver is normal size. No focal liver lesions identifiable. Pancreas is too obscured by bowel for assessment. " # Chronic Atrial Fibrillation s/p Watchman Device # S/P Lower Extremity Shunt - Rate-controlled without medication - Hold rivaroxaban given concern for hematochezia # Hypertension - Continue home amlodipine # Hypothyroidism - Continue home levothyroxine David Prince M.D.
[2022-01-27 04:56] LABS: Absolute Lymphocytes (CBC) 1.6 K/uL (0.7-4.9); Hematocrit 38.8 % (39.6-49.0); Lymphocytes % 8.3 % (15.3-44.8); MPV 9.1 fL (7.6-11.3); RBC Red Blood Cell Count 4.22 M/uL (4.33-5.43)
[2022-01-27 05:16] LABS: Potassium 3.6 mmol/L (3.5-5.1)
[2022-01-27] MEDS: LEVOTHYROXINE SOD 0.075 MG TAB PO SCH (05:44)
[2022-01-27] MEDS ORDERED: VANCOMYCIN 1 GM in NA CHLORIDE 0.9% 250 ML IVPB SCH (07:00)
[2022-01-27] MEDS: VANCOMYCIN 1.5 GM in NA CHLORIDE 0.9% 500 ML IVPB SCH (07:52)
[2022-01-27] MEDS: INSULIN -REGULAR HUMAN 50 UNIT/0.5 ML ML SQ SCH ×4 (07:52→20:38)
[2022-01-27] MEDS ORDERED: NOREPINEPHRINE BITARTRATE/D5W 4 MG/250 ML BAG IV ONE (08:24)
[2022-01-27] MEDS ORDERED: NOREPINEPHRINE 4 MG in D5W 250 ML IV SCH (09:00)
[2022-01-27] MEDS: COLLAGENASE 30 GM OINTMENT TOP SCH (09:19)
[2022-01-27] MEDS: PANTOPRAZOLE 40 MG INJ IVP SCH ×2 (09:19→19:50)
[2022-01-27] MEDS: FLUOXETINE 10 MG CAP PO SCH (09:19)
[2022-01-27] MEDS: AMLODIPINE 10 MG TAB PO SCH (09:19)
[2022-01-27] MEDS: THIAMINE 200 MG/2 ML INJ IVP SCH ×2 (09:19→19:50)
[2022-01-27] MEDS: PIPER TAZO 3.375 GM in NA CHLORIDE 0.9% 100 ML IV SCH ×2 (09:20→19:51)
[2022-01-27] MEDS ORDERED: KCL 20 MEQ/100 mL IVPB 20 MEQ/100 ML BAG IV SCH (11:00)
[2022-01-27] MEDS: QUETIAPINE 25 MG TAB PO SCH (19:50)
--- NOTE | 2022-01-27 22:39 | P.PN ---
Subjective Date of Service: 01/27/22 Chief Complaint: Acute Metabolic Encephalopathy hypercalcemia No acute events overnight. There has been no change in mental status. He has not been sun-downing per RN. WBC continues to trend upwards, but no current source of infection. Review of Systems is unable to be obtained Physical Examination - Vital Signs Temperature: 97.2 F Blood Pressure: 123/77 Pulse: 89 Respirations: 20 Pulse Ox (%): 99 - Studies Medications List Reviewed: Yes Assessment And Plan - Plan - Physical Exam General: Alert, In no apparent distress, Oriented x1, Calm, Cooperative HEENT: Atraumatic, PERRLA, Mucous membr. moist/pink, EOMI, Sclerae nonicteric Neck: Supple, JVD not distended Respiratory: Clear to auscultation bilaterally, Normal air movement Cardiovascular: No edema, Regular rate/rhythm, Normal S1 S2, No gallops, No rubs, No murmurs Gastrointestinal: Normal bowel sounds, Soft and benign, Non-distended, No tenderness, No rebound, No guarding Musculoskeletal: No clubbing Integumentary: Other (ulcer on top of left big toe is clean, dry, and intact. 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 PCO2 37.1, PO2 75.2 - Blood cultures x 2 = NGTD - Urinalysis = trace blood, trace leukocyte esterase - CT head = no "acute intracranial pathology" - MRI brain = "negative for acute CVA or other acute intracranial abnormality." - Management plan: - Infectious Diseases consulted and spoke with Dr. Gabriel - Recommends continue doxycycline - Treatment for sepsis as mentioned below - Discontinue D5W - q4hr neuro checks - Start quetiapine nightly given sun-downing - improved # Severe Sepsis possibly secondary to Osteomyelitis +/- Urinary Tract Infection He meets sepsis criteria based on HR > 90 bpm and WBC > 12,000, and the suspected source is a UTI vs left big toe osteomyelitis. Severe sepsis is suspected due to concern for tissue hypoperfusion/organ dysfunction based on coagulopathy (INR > 1.5) and lactic acid > 2 mmol/L. - Sepsis order set was initiated in ED - Lactate was 3.7 -> 1.8 - Blood cultures drawn before antibiotics were given - Broad spectrum antibiotics started in ED: Ceftriaxone -> Doxycycline - Left foot x-ray = "Absence of the first proximal phalanx head with irregular cortical margin of the medial aspect first distal phalanx base. The bone loss is new from the September examination. No surgical history was detailed. 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." - In regards to fluids: - 30 mL/kg of IV fluids was not administered given SBP > 90, MAP > 65, lactic acid < 4 - Given up-trending WBC, ordered CXR, UA, BCx - Osteomyelitis seems chronic and unlikely to be etiology of new leukocytosis - Started empiric vancomycin + piperacillin-tazobactam # KDIGO Stage I Acute Kidney Injury - Creatinine = 1.57 (creatinine was 1.08 on 01/03/2022) - Urinalysis = trace blood, trace leukocyte esterase - Monitor creatinine and urine output - Griffiths catheter placed - Renally dose medications # Hyperglycemia in Type II Diabetes Mellitus - Hgb A1c = 6.7 % - Correction scale insulin # Mildly Elevated LFTs - Abdomen ultrasound = "Multiple sub centimeter mobile gallstones are seen. No other gallbladder or biliary tree abnormality identified. Liver is normal size. No focal liver lesions identifiable. Pancreas is too obscured by bowel for assessment. " # Chronic Atrial Fibrillation s/p Watchman Device # S/P Lower Extremity Shunt - Rate-controlled without medication - Hold rivaroxaban given concern for hematochezia # Hypertension - Continue home amlodipine # Hypothyroidism - Continue home levothyroxine David Prince M.D.
[2022-01-28] MEDS: LEVOTHYROXINE SOD 0.075 MG TAB PO SCH (05:37)
[2022-01-28] MEDS: INSULIN -REGULAR HUMAN 50 UNIT/0.5 ML ML SQ SCH ×4 (07:30→21:00)
[2022-01-28 08:34] LABS: Absolute Lymphocytes (CBC) 1.4 K/uL (0.7-4.9); Hematocrit 36.4 % (39.6-49.0); Lymphocytes % 10.1 % (15.3-44.8); MCV 91.6 fL (80-100); MPV 8.9 fL (7.6-11.3); RBC Red Blood Cell Count 3.97 M/uL (4.33-5.43)
[2022-01-28] MEDS: COLLAGENASE 30 GM OINTMENT TOP SCH (09:00)
[2022-01-28 09:19] LABS: Potassium 3.5 mmol/L (3.5-5.1)
[2022-01-28] MEDS: FLUOXETINE 10 MG CAP PO SCH (09:33)
[2022-01-28] MEDS: PIPER TAZO 3.375 GM in NA CHLORIDE 0.9% 100 ML IV SCH ×2 (09:33→21:48)
[2022-01-28] MEDS: THIAMINE 200 MG/2 ML INJ IVP SCH ×2 (09:33→21:48)
[2022-01-28] MEDS: AMLODIPINE 10 MG TAB PO SCH (09:33)
[2022-01-28] MEDS: PANTOPRAZOLE 40 MG INJ IVP SCH ×2 (09:34→21:48)
[2022-01-28] MEDS ORDERED: POTASSIUM 25 MEQ EFFERV TAB PO ONE (12:00)
--- NOTE | 2022-01-28 18:12 | PN ---
Subjective: Patient is lying in bed. No new acute event. Responds to simple commands. Objective: Vital Signs: Temperature 98, pulse 94, respiration 18, blood pressure 135/85. Lungs: Basal crackles. Heart: S1, S2. Regular. Abdomen: Soft, nontender. Bowel sounds present. Extremities: No edema. Laboratory Data: Shows WBC 13.5, hemoglobin 12, platelets are 179. Chemistry shows sodium 149, pota ssium 3.5, chloride 117, bicarb 24, BUN 24, creatinine 1.6, glucose is 302. Micro data: Blood cultu res done on 01/26 are pending. Medications: Currently, patient is on IV Vancomycin and Zosyn. Assessment And Plan: Left big toe osteomyelitis with cellulitis of the foot. Leukocytosis. Current ly on IV antibiotic, vancomycin and Zosyn. Renal insufficiency, possible gastrointestinal bleed. Co ntinue supportive care and wound care. Consider getting silver alginate. We will follow the patient as needed. NF/MODL Voice ID: [id number] Report ID: [id number]
[2022-01-28] MEDS: VANCOMYCIN 1.5 GM in NA CHLORIDE 0.9% 500 ML IVPB SCH (19:56)
[2022-01-28] MEDS ORDERED: VANCOMYCIN 1.5 GM in NA CHLORIDE 0.9% 500 ML IVPB SCH (20:00)
[2022-01-28] MEDS: MELATONIN 5 MG TABLET PO PRN (21:48)
[2022-01-28] MEDS: QUETIAPINE 25 MG TAB PO SCH (21:48)
--- NOTE | 2022-01-28 22:41 | P.PN ---
Subjective Date of Service: 01/28/22 Chief Complaint: Acute Metabolic Encephalopathy hypercalcemia No acute events overnight. Resting comfortably in bed. No concerns overnight per RN. Review of Systems is unable to be obtained Physical Examination - Vital Signs Temperature: 97.8 F Blood Pressure: 106/59 Pulse: 71 Respirations: 18 Pulse Ox (%): 100 - Studies Medications List Reviewed: Yes Assessment And Plan - Plan - Physical Exam General: Alert, In no apparent distress, Oriented x1, Calm, Cooperative HEENT: Atraumatic, PERRLA, Mucous membr. moist/pink, EOMI, Sclerae nonicteric Neck: Supple, JVD not distended Respiratory: Clear to auscultation bilaterally, Normal air movement Cardiovascular: No edema, Regular rate/rhythm, Normal S1 S2, No gallops, No rubs, No murmurs Gastrointestinal: Normal bowel sounds, Soft and benign, Non-distended, No tenderness, No rebound, No guarding Musculoskeletal: No clubbing Integumentary: Other (ulcer on top of left big toe is clean, dry, and intact. 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 Ryder's LOG RIDER - recommendation appreciated - Hgb has been stable - no recurrent episodes of bleeding - Transfuse for Hgb < 7.0 - Pantoprazole 40 mg IV BID - NPO - Hold rivaroxaban for now # Acute Toxic Metabolic Encephalopathy likely secondary to Severe Sepsis vs Hypercalcemia vs Recrudensce of Prior CVA (improved) # Hypercalcemia suspect secondary to Multiple Myeloma # Hypernatremia due to Dehydration (resolved) - Evaluation thus far: - Initial labs = Na+ 140, Ca2+ 12.1, CO2 22, Glucose 220, BUN 29 - VBG = pH 7.46. PCO2 37.1, PO2 75.2 - Blood cultures x 2 = NGTD - Urinalysis = trace blood, trace leukocyte esterase - CT head = no "acute intracranial pathology" - MRI brain = "negative for acute CVA or other acute intracranial abnormality." - Management plan: - Infectious Diseases consulted and spoke with Dr. Gabriel - Recommends continue doxycycline - Treatment for sepsis as mentioned below - Discontinue D5W - q4hr neuro checks - Start quetiapine nightly given sun-downing - improved # Severe Sepsis possibly secondary to Osteomyelitis +/- Urinary Tract Infection He meets sepsis criteria based on HR > 90 bpm and WBC > 12,000, and the suspected source is a UTI vs left big toe osteomyelitis. Severe sepsis is suspected due to concern for tissue hypoperfusion/organ dysfunction based on coagulopathy (INR > 1.5) and lactic acid > 2 mmol/L. - Sepsis order set was initiated in ED - Lactate was 3.7 -> 1.8 - Blood cultures drawn before antibiotics were given - Broad spectrum antibiotics started in ED: Ceftriaxone -> Doxycycline - Left foot x-ray = "Absence of the first proximal phalanx head with irregular cortical margin of the medial aspect first distal phalanx base. The bone loss is new from the September examination. No surgical history was detailed. 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." - In regards to fluids: - 30 mL/kg of IV fluids was not administered given SBP > 90, MAP > 65, lactic acid < 4 - Given up-trending WBC, ordered CXR, UA, BCx - Osteomyelitis seems chronic and unlikely to be etiology of new leukocytosis - Started empiric vancomycin + piperacillin-tazobactam - WBC improving today - appreciate ID recs # KDIGO Stage I Acute Kidney Injury - Creatinine = 1.63 (creatinine was 1.08 on 01/03/2022) - Urinalysis = trace blood, trace leukocyte esterase - Monitor creatinine and urine output - Griffiths catheter placed - Renally dose medications # Hyperglycemia in Type II Diabetes Mellitus - Hgb A1c = 6.7 % - Correction scale insulin # Mildly Elevated LFTs - Abdomen ultrasound = "Multiple sub centimeter mobile gallstones are seen. No other gallbladder or biliary tree abnormality identified. Liver is normal size. No focal liver lesions identifiable. Pancreas is too obscured by bowel for assessment. " # Chronic Atrial Fibrillation s/p Watchman Device # S/P Lower Extremity Shunt - Rate-controlled without medication - Hold rivaroxaban given concern for hematochezia # Hypertension - Continue home amlodipine # Hypothyroidism - Continue home levothyroxine David Prince M.D.
[2022-01-29 05:19] LABS: Absolute Lymphocytes (CBC) 1.5 K/uL (0.7-4.9); Hematocrit 34.2 % (39.6-49.0); Lymphocytes % 10.7 % (15.3-44.8); MCV 90.7 fL (80-100); MPV 8.7 fL (7.6-11.3); RBC Red Blood Cell Count 3.77 M/uL (4.33-5.43)
[2022-01-29 05:38] LABS: Potassium 3.6 mmol/L (3.5-5.1)
[2022-01-29] MEDS: LEVOTHYROXINE SOD 0.075 MG TAB PO SCH (06:24)
[2022-01-29] MEDS: COLLAGENASE 30 GM OINTMENT TOP SCH (07:40)
[2022-01-29] MEDS: D5W 1,000 ML IV SCH ×2 (07:41→20:20)
[2022-01-29] MEDS: PIPER TAZO 3.375 GM in NA CHLORIDE 0.9% 100 ML IV SCH ×2 (07:41→20:55)
[2022-01-29] MEDS: PANTOPRAZOLE 40 MG INJ IVP SCH ×2 (07:42→20:59)
[2022-01-29] MEDS: THIAMINE 200 MG/2 ML INJ IVP SCH ×2 (07:42→21:00)
[2022-01-29] MEDS: INSULIN -REGULAR HUMAN 50 UNIT/0.5 ML ML SQ SCH ×4 (07:42→20:54)
[2022-01-29] MEDS: FLUOXETINE 10 MG CAP PO SCH (07:42)
[2022-01-29] MEDS: AMLODIPINE 10 MG TAB PO SCH (08:46)
--- NOTE | 2022-01-29 15:34 | P.PN ---
Subjective Date of Service: 01/29/22 Chief Complaint: Acute Metabolic Encephalopathy hypercalcemia No acute events overnight. Resting comfortably in bed eating breakfast. Per RN, he has intermittent episodes of bright red blood per rectum. I was given grand-daughter's, Ms. Adelina Forbes's, phone number by RN to call and update her on Mr. France's hospital course. I have attempted to contact her twice, without success. I am happy to speak with her if she calls back. Review of Systems is unable to be obtained Physical Examination - Vital Signs Temperature: 97.6 F Blood Pressure: 117/72 Pulse: 71 Respirations: 20 Pulse Ox (%): 100 - Studies Medications List Reviewed: Yes Assessment And Plan - Plan - Physical Exam General: Alert, In no apparent distress, Oriented x1, Calm, Cooperative HEENT: Atraumatic, PERRLA, Mucous membr. moist/pink, EOMI, Sclerae nonicteric Neck: Supple, JVD not distended Respiratory: Clear to auscultation bilaterally, Normal air movement Cardiovascular: No edema, Regular rate/rhythm, Normal S1 S2, No gallops, No rubs, No murmurs Gastrointestinal: Normal bowel sounds, Soft and benign, Non-distended, No tenderness, No rebound, No guarding Musculoskeletal: No clubbing Integumentary: Other (ulcer on top of left big toe is clean, dry, and intact. 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 Ryder - recommendation appreciated - Hgb has been stable - intermittent episodes of hematochezia - Stool guiaic positive - Transfuse for Hgb < 7.0 - Pantoprazole 40 mg IV BID - NPO - Hold rivaroxaban for now # Acute Toxic Metabolic Encephalopathy likely secondary to Severe Sepsis vs Hypercalcemia vs Recrudensce of Prior CVA (improved) # Hypercalcemia suspect secondary to Multiple Myeloma # Hypernatremia due to Dehydration (resolved) - Evaluation thus far: - Initial labs = Na+ 140, Ca2+ 12.1, CO2 22, Glucose 220, BUN 29 - VBG = pH 7.46. PCO2 37.1, PO2 75.2 - Blood cultures x 2 = NGTD - Urinalysis = trace blood, trace leukocyte esterase - CT head = no "acute intracranial pathology" - MRI brain = "negative for acute CVA or other acute intracranial abnormality." - Management plan: - Infectious Diseases consulted and spoke with Dr. Gabriel - Treatment for sepsis as mentioned below - Discontinue D5W - q4hr neuro checks - Start quetiapine nightly given sun-downing - improved # Severe Sepsis possibly secondary to Osteomyelitis +/- Urinary Tract Infection He meets sepsis criteria based on HR > 90 bpm and WBC > 12,000, and the suspected source is a UTI vs left big toe osteomyelitis. Severe sepsis is suspected due to concern for tissue hypoperfusion/organ dysfunction based on coagulopathy (INR > 1.5) and lactic acid > 2 mmol/L. - Sepsis order set was initiated in ED - Lactate was 3.7 -> 1.8 - Blood cultures drawn before antibiotics were given - Broad spectrum antibiotics started in ED: Ceftriaxone -> Doxycycline - Left foot x-ray = "Absence of the first proximal phalanx head with irregular cortical margin of the medial aspect first distal phalanx base. The bone loss is new from the September examination. No surgical history was detailed. 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." - In regards to fluids: - 30 mL/kg of IV fluids was not administered given SBP > 90, MAP > 65, lactic acid < 4 - Given up-trending WBC, ordered CXR, UA, BCx - Osteomyelitis seems chronic and unlikely to be etiology of new leukocytosis - Started empiric vancomycin + piperacillin-tazobactam - WBC improving today - appreciate ID recs # KDIGO Stage I Acute Kidney Injury - Creatinine = 1.63 (creatinine was 1.08 on 01/03/2022) - Urinalysis = trace blood, trace leukocyte esterase - Monitor creatinine and urine output - Griffiths catheter placed - Renally dose medications # Hyperglycemia in Type II Diabetes Mellitus - Hgb A1c = 6.7 % - Correction scale insulin # Mildly Elevated LFTs - Abdomen ultrasound = "Multiple sub centimeter mobile gallstones are seen. No other gallbladder or biliary tree abnormality identified. Liver is normal size. No focal liver lesions identifiable. Pancreas is too obscured by bowel for assessment. " # Chronic Atrial Fibrillation s/p Watchman Device # S/P Lower Extremity Shunt - Rate-controlled without medication - Hold rivaroxaban given concern for hematochezia # Hypertension - Continue home amlodipine # Hypothyroidism - Continue home levothyroxine David Prince M.D.
[2022-01-29] MEDS: QUETIAPINE 25 MG TAB PO SCH (20:59)
[2022-01-29] MEDS: MELATONIN 5 MG TABLET PO PRN (21:00)
[2022-01-30] MEDS: LEVOTHYROXINE SOD 0.075 MG TAB PO SCH (06:38)
[2022-01-30] MEDS: INSULIN -REGULAR HUMAN 50 UNIT/0.5 ML ML SQ SCH ×4 (07:30→20:32)
[2022-01-30 07:50] LABS: Absolute Lymphocytes (CBC) 1.9 K/uL (0.7-4.9); Hematocrit 33.4 % (39.6-49.0); Lymphocytes % 17.6 % (15.3-44.8); MCV 91.7 fL (80-100); MPV 8.8 fL (7.6-11.3); RBC Red Blood Cell Count 3.64 M/uL (4.33-5.43)
[2022-01-30 08:20] LABS: Magnesium 1.9 mg/dL (1.8-2.4); Phosphorus 2.3 mg/dL (2.5-4.9); Potassium 3.2 mmol/L (3.5-5.1)
[2022-01-30] MEDS: AMLODIPINE 10 MG TAB PO SCH (09:29)
[2022-01-30] MEDS: PANTOPRAZOLE 40 MG INJ IVP SCH ×2 (09:29→20:33)
[2022-01-30] MEDS: PIPER TAZO 3.375 GM in NA CHLORIDE 0.9% 100 ML IV SCH ×2 (09:29→20:34)
[2022-01-30] MEDS: FLUOXETINE 10 MG CAP PO SCH (09:30)
[2022-01-30] MEDS: COLLAGENASE 30 GM OINTMENT TOP SCH (09:30)
[2022-01-30] MEDS: THIAMINE 200 MG/2 ML INJ IVP SCH ×2 (09:30→20:34)
[2022-01-30] MEDS: D5W 1,000 ML IV SCH (09:40)
[2022-01-30] MEDS: VANCOMYCIN 1.75 GM in NA CHLORIDE 0.9% 500 ML IVPB SCH (11:20)
--- NOTE | 2022-01-30 15:59 | P.PN ---
Subjective Date of Service: 01/30/22 Chief Complaint: Acute Metabolic Encephalopathy hypercalcemia No acute events overnight. Resting comfortably in bed. He is much improved today, now alert and oriented x [address]. Per RN, no recurrent episodes of hematochezia. I spoke with grand-daughter, Ms. Adelina Forbes, and updated her on his hospital course. She was worried that vancomycin may have been contributing to his confusion; however, she states that his mentation is much better now, despite being on vancomycin. She is concerned about the use of long-term antibiotics, and I explained that this is likely to be continued if he does not undergo amputation of his infected toe. She states that she would like to talk to the family further about how to proceed. Review of Systems is unable to be obtained Physical Examination - Vital Signs Temperature: 97.7 F Blood Pressure: 118/66 Pulse: 82 Respirations: 16 Pulse Ox (%): 99 - Studies Medications List Reviewed: Yes Assessment And Plan - Plan - Physical Exam General: Alert, In no apparent distress, Oriented x1, Calm, Cooperative HEENT: Atraumatic, PERRLA, Mucous membr. moist/pink, EOMI, Sclerae nonicteric Neck: Supple, JVD not distended Respiratory: Clear to auscultation bilaterally, Normal air movement Cardiovascular: No edema, Regular rate/rhythm, Normal S1 S2, No gallops, No rubs, No murmurs Gastrointestinal: Normal bowel sounds, Soft and benign, Non-distended, No tenderness, No rebound, No guarding Musculoskeletal: No clubbing Integumentary: Other (ulcer on top of left big toe is clean, dry, and intact. No preet drainage appreciated.) Neurological: Cranial nerves 3-12 intact # Acute Toxic Metabolic Encephalopathy likely secondary to Severe Sepsis vs Hypercalcemia vs Recrudensce of Prior CVA (improved) # Hypercalcemia suspect secondary to Multiple Myeloma # Hypernatremia due to Dehydration (resolved) - Evaluation thus far: - Initial labs = Na+ 140, Ca2+ 12.1, CO2 22, Glucose 220, BUN 29 - VBG = pH 7.46. PCO2 37.1, PO2 75.2 - Blood cultures x 2 = NGTD - Urinalysis = trace blood, trace leukocyte esterase - CT head = no "acute intracranial pathology" - MRI brain = "negative for acute CVA or other acute intracranial abnormality." - Management plan: - Infectious Diseases consulted and spoke with Dr. Gabriel - Treatment for sepsis as mentioned below - Discontinue D5W - q4hr neuro checks - Start quetiapine nightly given sun-downing - improved # Bright Red Blood Per Rectum (Hematochezia) - resolved - Consulted Gastroenterology and spoke with Dr. Ryder - recommendation appreciated - Hgb has been stable - intermittent episodes of hematochezia - Stool guiaic positive - Transfuse for Hgb < 7.0 - Pantoprazole 40 mg IV BID - NPO - Hold rivaroxaban for now # Severe Sepsis possibly secondary to Osteomyelitis +/- Urinary Tract Infection He meets sepsis criteria based on HR > 90 bpm and WBC > 12,000, and the suspected source is a UTI vs left big toe osteomyelitis. Severe sepsis is suspected due to concern for tissue hypoperfusion/organ dysfunction based on coagulopathy (INR > 1.5) and lactic acid > 2 mmol/L. - Sepsis order set was initiated in ED - Lactate was 3.7 -> 1.8 - Blood cultures drawn before antibiotics were given - Broad spectrum antibiotics started in ED: Ceftriaxone -> Doxycycline - Left foot x-ray = "Absence of the first proximal phalanx head with irregular cortical margin of the medial aspect first distal phalanx base. The bone loss is new from the September examination. No surgical history was detailed. 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." - In regards to fluids: - 30 mL/kg of IV fluids was not administered given SBP > 90, MAP > 65, lactic acid < 4 - Given up-trending WBC, ordered CXR, UA, BCx - Osteomyelitis seems chronic and unlikely to be etiology of new leukocytosis - Started empiric vancomycin + piperacillin-tazobactam - WBC improving today - appreciate ID recs # KDIGO Stage I Acute Kidney Injury - Creatinine = 1.63 -> 1.27 (creatinine was 1.08 on 01/03/2022) - Urinalysis = trace blood, trace leukocyte esterase - Monitor creatinine and urine output - Griffiths catheter placed - Renally dose medications # Hyperglycemia in Type II Diabetes Mellitus - Hgb A1c = 6.7 % - Correction scale insulin # Mildly Elevated LFTs - Abdomen ultrasound = "Multiple sub centimeter mobile gallstones are seen. No other gallbladder or biliary tree abnormality identified. Liver is normal size. No focal liver lesions identifiable. Pancreas is too obscured by bowel for assessment. " # Chronic Atrial Fibrillation s/p Watchman Device # S/P Lower Extremity Shunt - Rate-controlled without medication - Hold rivaroxaban given concern for hematochezia # Hypertension - Continue home amlodipine # Hypothyroidism - Continue home levothyroxine David Prince M.D. Discharge Plan: Correction Plan to discharge in: Greater than 2 days
[2022-01-30] MEDS ORDERED: DEXTROSE 10%-WATER 125 ML IV PRN (17:00)
[2022-01-30] MEDS: QUETIAPINE 25 MG TAB PO SCH (20:34)
[2022-01-30] MEDS ORDERED: POTASSIUM CL SA 10 MEQ TAB PO ONE (21:00)
[2022-01-31 05:02] LABS: Absolute Lymphocytes (CBC) 1.5 K/uL (0.7-4.9); Hematocrit 32.2 % (39.6-49.0); Lymphocytes % 12.1 % (15.3-44.8); MCV 91.3 fL (80-100); MPV 8.9 fL (7.6-11.3); RBC Red Blood Cell Count 3.53 M/uL (4.33-5.43)
[2022-01-31] MEDS: LEVOTHYROXINE SOD 0.075 MG TAB PO SCH (05:04)
[2022-01-31 05:18] LABS: Potassium 3.6 mmol/L (3.5-5.1)
[2022-01-31] MEDS: INSULIN -REGULAR HUMAN 50 UNIT/0.5 ML ML SQ SCH ×4 (07:30→21:03)
--- NOTE | 2022-01-31 08:43 | P.PN ---
Subjective Date of Service: 01/31/22 Chief Complaint: Acute Metabolic Encephalopathy hypercalcemia Subjective: No new changes, Improving Physical Examination - Vital Signs Temperature: 97.3 F Blood Pressure: 130/53 Pulse: 82 Respirations: 18 Pulse Ox (%): 100 - Physical Exam General: Alert HEENT: Atraumatic, Normocephalic Neck: Supple Respiratory: Normal air movement Cardiovascular: Regular rate/rhythm, Normal S1 S2 Gastrointestinal: Soft and benign Musculoskeletal: No swelling Neurological: Normal speech, Normal strength at 5/5 x4 extr - Studies Medications List Reviewed: Yes Assessment And Plan - Plan # Acute Toxic Metabolic Encephalopathy likely secondary to Severe Sepsis vs Hypercalcemia vs Recrudensce of Prior CVA (improved) # Hypercalcemia suspect secondary to Multiple Myeloma # Hypernatremia due to Dehydration (resolved) -Resolved encephalopathy. -Na is now normal. -WBC is trending down. - Management plan: - Infectious Diseases consulted and spoke with Dr. Gabriel - Treatment for sepsis as mentioned below. # Bright Red Blood Per Rectum (Hematochezia) - resolved - Consulted Gastroenterology and spoke with Dr. Ryder - recommendation appreciated - Hgb has been stable - intermittent episodes of hematochezia. - Transfuse for Hgb < 7.0 - Pantoprazole 40 mg IV BID - NPO - Continue to hold rivaroxaban dose for now # Severe Sepsis possibly secondary to Osteomyelitis +/- Urinary Tract Infection We will continue antibiotic therapy as per ID recs. No new issues for now. # KDIGO Stage I Acute Kidney Injury - Creatinine = 1.63 -> 1.27 (creatinine was 1.08 on 01/03/2022) - Urinalysis = trace blood, trace leukocyte esterase - Monitor creatinine and urine output - Griffiths catheter placed. - Renally dose medications # Hyperglycemia in Type II Diabetes Mellitus - Hgb A1c = 6.7%. - sliding scale insulin therapy to be continued. # Mildly Elevated LFTs - Abdomen ultrasound = "Multiple sub centimeter mobile gallstones are seen. No other gallbladder or biliary tree abnormality identified. Liver is normal size. No focal liver lesions identifiable. Pancreas is too obscured by bowel for assessment. " # Chronic Atrial Fibrillation s/p Watchman Device # S/P Lower Extremity Shunt - Rate-controlled without medication - Hold rivaroxaban given concern for hematochezia # Hypertension - Continue home amlodipine # Hypothyroidism - Continue home levothyroxine
[2022-01-31] MEDS: THIAMINE 200 MG/2 ML INJ IVP SCH ×2 (09:23→20:17)
[2022-01-31] MEDS: AMLODIPINE 10 MG TAB PO SCH (09:23)
[2022-01-31] MEDS: PIPER TAZO 3.375 GM in NA CHLORIDE 0.9% 100 ML IV SCH ×2 (09:24→20:17)
[2022-01-31] MEDS: PANTOPRAZOLE 40 MG INJ IVP SCH ×2 (09:24→20:16)
[2022-01-31] MEDS: FLUOXETINE 10 MG CAP PO SCH (09:30)
[2022-01-31] MEDS: COLLAGENASE 30 GM OINTMENT TOP SCH (09:30)
[2022-01-31] MEDS ORDERED: PIPERACIL/TAZO 3.375 GM VIAL IV ONE (09:32)
[2022-01-31] MEDS ORDERED: NA CHLORIDE 0.9% 100 ML ONE (10:34)
--- NOTE | 2022-01-31 14:45 | PN ---
Subjective: Patient lying in bed. No new acute event. Chart reviewed. Somewhat more alert today. Objective: Vital Signs: Temperature 97, pulse 72, respirations 18, blood pressure 154/106. Lungs: Basal crackles. Heart: S1, S2. Regular. Abdomen: Soft, nontender. Bowel sounds present. Extremities: Foot wound noted. Laboratory Data: WBC 12.3, hemoglobin 11.1, platelets 202. Chemistry; sodium 142, potassium 3.6, ch loride 112, bicarb 26, BUN 11, creatinine 1.18. Glucose is 124. Assessment And Plan: Osteomyelitis of foot. Continue IV antibiotics, vancomycin and Zosyn. Urinary tract infection, improved. Leukocytosis of 12,000, moderate protein-calorie malnourishment, renal i nsufficiency. Consider long-term acute care. Gastrointestinal bleed has stabilized. Diabetes melli tus and diabetic neuropathy. Altered mental status, improving slightly. We will follow patient as n dilcia. NF/MODL Voice ID: [id number] Report ID: [id number]
[2022-01-31] MEDS: QUETIAPINE 25 MG TAB PO SCH (20:17)
[2022-01-31] MEDS: VANCOMYCIN 1.75 GM in NA CHLORIDE 0.9% 500 ML IVPB SCH (23:33)
[2022-02-01] MEDS: LEVOTHYROXINE SOD 0.075 MG TAB PO SCH (04:43)
[2022-02-01] MEDS: PIPER TAZO 3.375 GM in NA CHLORIDE 0.9% 100 ML IV SCH ×2 (09:20→20:33)
[2022-02-01] MEDS: PANTOPRAZOLE 40 MG INJ IVP SCH ×2 (09:21→20:33)
[2022-02-01] MEDS: THIAMINE 200 MG/2 ML INJ IVP SCH ×2 (09:54→20:33)
[2022-02-01] MEDS: INSULIN -REGULAR HUMAN 50 UNIT/0.5 ML ML SQ SCH ×3 (09:54→16:30)
[2022-02-01] MEDS: FLUOXETINE 10 MG CAP PO SCH (09:54)
[2022-02-01] MEDS: AMLODIPINE 10 MG TAB PO SCH (09:54)
[2022-02-01] MEDS: COLLAGENASE 30 GM OINTMENT TOP SCH (09:55)
--- NOTE | 2022-02-01 11:15 | P.PN ---
Subjective Date of Service: 02/01/22 Chief Complaint: Acute Metabolic Encephalopathy hypercalcemia Subjective: No new changes, Improving Physical Examination - Vital Signs Temperature: 97.2 F Blood Pressure: 125/65 Pulse: 92 Respirations: 18 Pulse Ox (%): 98 - Physical Exam General: Alert, Oriented x3 HEENT: Atraumatic, Normocephalic Neck: Supple Respiratory: Normal air movement Cardiovascular: Regular rate/rhythm, Normal S1 S2 Gastrointestinal: Soft and benign Musculoskeletal: No swelling, Other (post op changes noted.) Neurological: Normal speech - Studies Medications List Reviewed: Yes Assessment And Plan - Plan # Acute Toxic Metabolic Encephalopathy likely secondary to Severe Sepsis vs Hypercalcemia vs Recrudensce of Prior CVA (improved) # Hypercalcemia suspect secondary to Multiple Myeloma # Hypernatremia due to Dehydration (resolved) -Resolved encephalopathy. -Na is now normal. -WBC is trending down but still concerning. - Management plan: - Infectious Diseases consulted recs noted. antibiotics to be continued as per ID recs. # Bright Red Blood Per Rectum (Hematochezia) - resolved - Consulted Gastroenterology. - Hgb has been stable. - Transfuse for Hgb < 7.0 - Pantoprazole 40 mg IV BID to be continued. - Continue to hold rivaroxaban dose for now # Severe Sepsis possibly secondary to Osteomyelitis +/- Urinary Tract Infection We will continue antibiotic therapy as per ID recs. No new issues for now. wound care as team. # KDIGO Stage I Acute Kidney Injury - Creatinine = 1.63 -> 1.17 today. - Urinalysis = trace blood, trace leukocyte esterase - Monitor creatinine and urine output - Griffiths catheter placed. - Renally dose medications # Hyperglycemia in Type II Diabetes Mellitus - Hgb A1c = 6.7%. - sliding scale insulin therapy to be continued. # Chronic Atrial Fibrillation s/p Watchman Device # S/P Lower Extremity Shunt - Rate-controlled without medication - Hold rivaroxaban given concern for hematochezia. Cardiology to assist with management recs. # Hypertension - Continue home amlodipine # Hypothyroidism - Continue home levothyroxine Awaiting SNF/LTAC placement.
[2022-02-01 14:08] LABS: Absolute Lymphocytes (CBC) 1.1 K/uL (0.7-4.9); Hematocrit 34.2 % (39.6-49.0); Lymphocytes % 7.8 % (15.3-44.8); MCV 90.8 fL (80-100); MPV 8.8 fL (7.6-11.3); RBC Red Blood Cell Count 3.76 M/uL (4.33-5.43)
[2022-02-01 14:20] LABS: Potassium 3.3 mmol/L (3.5-5.1)
--- NOTE | 2022-02-01 14:43 | PN ---
The patient is lying in ICU bed 1. More alert and awake today. Currently on IV antibiotic, vancomyc in and Zosyn for the osteomyelitis of his foot and sepsis. Urinary tract infection has improved. We will recommend to continue antibiotic total of 6 weeks and monitor kidney and liver function on a we ekly basis twice a week basis. Also monitor platelets as the patient is going to be on vancomycin an d Zosyn together. Repeat MRI after 6 weeks of completion of antibiotic. If not improved, recommend to have amputation of the toe. The patient's vitals are stable. No new changes in examination. No other recommendation at this time. NF/MODL Voice ID: [id number] Report ID: [id number]
[2022-02-01] MEDS: QUETIAPINE 25 MG TAB PO SCH (20:33)
[2022-02-02] MEDS: INSULIN -REGULAR HUMAN 50 UNIT/0.5 ML ML SQ SCH ×5 (00:26→21:00)
[2022-02-02] MEDS: LEVOTHYROXINE SOD 0.075 MG TAB PO SCH (05:23)
[2022-02-02] MEDS ORDERED: POTASSIUM 25 MEQ EFFERV TAB PO ONE (06:47)
[2022-02-02] MEDS: PIPER TAZO 3.375 GM in NA CHLORIDE 0.9% 100 ML IV SCH ×2 (10:14→19:59)
[2022-02-02] MEDS: THIAMINE 200 MG/2 ML INJ IVP SCH ×2 (10:16→19:59)
[2022-02-02] MEDS: COLLAGENASE 30 GM OINTMENT TOP SCH (10:16)
[2022-02-02] MEDS: PANTOPRAZOLE 40 MG INJ IVP SCH ×2 (10:16→19:59)
[2022-02-02] MEDS: VANCOMYCIN 1.75 GM in NA CHLORIDE 0.9% 500 ML IVPB SCH (11:00)
[2022-02-02] MEDS: AMLODIPINE 10 MG TAB PO SCH (11:01)
[2022-02-02] MEDS: FLUOXETINE 10 MG CAP PO SCH (11:01)
--- NOTE | 2022-02-02 11:34 | RAD REPORT ---
EXAM DESCRIPTION: RAD - Chest Single View - 02/02/2022 4:27 am CLINICAL HISTORY: Cough COMPARISON: None. TECHNIQUE: Chest 2 Views AP PA Lateral FINDINGS: Patient is mildly leftward rotated. Cardiothymic silhouette unremarkable. No focal consolidation or lung mass. Mild bilateral perihilar interstitial lung prominence. No significant pleural effusion or pneumothorax. Lower thoracic spine shows mild leftward convex curvature that is likely positional. IMPRESSION: Mild bilateral perihilar interstitial lung prominence. Causes include infectious viral bronchiolitis and reactive airways disease. Electronically signed by: Michele Grijalva MD 02/02/2022 5:39 AM CDT Due to temporary technical issues with the PACS/Fluency reporting system, reports are being signed by the in house radiologists without review as a courtesy to insure prompt reporting. The interpreting radiologist is fully responsible for the content of the report.
[2022-02-02] MEDS: DAPTOmycin 500 MG in NA CHLORIDE 0.9% 100 ML IVPB SCH (13:07)
[2022-02-02] MEDS: LACTOBACILLUS/ACIDOPHILUS TAB PO SCH (19:59)
[2022-02-02] MEDS: QUETIAPINE 25 MG TAB PO SCH (19:59)
--- NOTE | 2022-02-02 20:07 | PN ---
Subjective: Patient lying in bed. More awake and alert today. . Objective: Vital Signs: Temperature 97, pulse 75, respirations 15, blood pressure 137/94. Lungs: Basal crackles. Heart: S1, S2. Regular. Abdomen: Soft, nontender. Bowel sounds present. Extremities: Wound noted. Laboratory Data: No new labs for today. Assessment And Plan: Osteomyelitis of the foot. We will discontinue vancomycin as the patient has b een on vancomycin for a while. We will switch him to daptomycin 6 mg/kg. The patient will also cont inue Zosyn for now. Possible amputation tomorrow. Might be able to switch him to oral antibiotic, s tatus post amputation. We will follow the patient closely. Monitor for signs of infection with WBC and fever trends. NF/MODL Voice ID: [id number] Report ID: [id number]
[2022-02-03 05:03] LABS: Absolute Lymphocytes (CBC) 1.5 K/uL (0.7-4.9); Hematocrit 30.1 % (39.6-49.0); Lymphocytes % 12.2 % (15.3-44.8); MCV 89.6 fL (80-100); MPV 8.7 fL (7.6-11.3); RBC Red Blood Cell Count 3.36 M/uL (4.33-5.43)
[2022-02-03 05:13] LABS: Potassium 3.6 mmol/L (3.5-5.1)
[2022-02-03] MEDS: LEVOTHYROXINE SOD 0.075 MG TAB PO SCH (06:00)
[2022-02-03] MEDS ORDERED: KCL 20 MEQ/100 mL IVPB 20 MEQ/100 ML BAG IV SCH (06:30)
[2022-02-03] MEDS: INSULIN -REGULAR HUMAN 50 UNIT/0.5 ML ML SQ SCH ×4 (07:30→21:02)
[2022-02-03] MEDS: AMLODIPINE 10 MG TAB PO SCH (08:00)
[2022-02-03] MEDS: LACTOBACILLUS/ACIDOPHILUS TAB PO SCH ×2 (08:01→21:02)
[2022-02-03] MEDS: COLLAGENASE 30 GM OINTMENT TOP SCH (08:01)
[2022-02-03] MEDS: FLUOXETINE 10 MG CAP PO SCH (08:01)
[2022-02-03] MEDS: PIPER TAZO 3.375 GM in NA CHLORIDE 0.9% 100 ML IV SCH ×2 (08:10→21:01)
[2022-02-03] MEDS ORDERED: NA CHLORIDE 0.9% 1,000 ML ONE (08:25)
--- NOTE | 2022-02-03 08:27 | P.PN ---
Date of Service: 02/02/22 Subjective Subjective: Patient is clinically doing well. Patient denies any new complaints. Patient getting out of bed and ambulating. Worked with physical therapy. Spoke with infectious disease and general surgery. Also spoke with daughter Adelina. Plan will be to do amputation tomorrow. And pending on how patient recovers plan to disposition accordingly. Review of Systems is unable to be obtained Physical Examination - Vital Signs Reviewed - Physical Exam General: Alert, In no apparent distress; trying to answer some of my questions Respiratory: Clear to auscultation bilaterally, Normal air movement Cardiovascular: Regular rate/rhythm, Normal S1 S2 Gastrointestinal: Normal bowel sounds, No tenderness Neurological: more awake and alert Assessment & Plan - Problems (Diagnosis) (1) Altered mental status/Metabolic encephalopathy Current Visit: No Status: Acute (2) CVA (cerebral vascular accident) Current Visit: No Status: chronic (3) Depression Current Visit: No Status: chronic (4) Hypercalcemia Current Visit: No Status: Acute (5) Hx of multiple myeloma Current Visit: No Status: Acute (6) Hypertension Current Visit: No Status: Acute (7) Hypothyroidism Current Visit: No Status: Acute (8) Presence of Watchman left atrial appendage closure device/Atrial fibrillation Current Visit: No Status: Acute (9) Diabetes mellitus Current Visit: No Status: Chronic - Plan Continue with plan of care as mentioned below: -N.p.o. after midnight -CONTINUE WITH IV ANTIBIOTICS -Surgery in a.m. -MONITOR RENAL FUNCTION AND ELECTROLYTES -Mentation improved Time Spent Managing PTS Care (In Minutes): 35
[2022-02-03] MEDS ORDERED: propofoL 200 MG/20 ML VIAL IV ONE (09:15)
[2022-02-03] MEDS ORDERED: LIDOCAINE 1% MPF 5 ML VIAL ONE (09:15)
[2022-02-03] MEDS ORDERED: FENTANYL CITR 100 MCG/2 ML ONE (09:15)
[2022-02-03] MEDS ORDERED: ONDANSETRON 4 MG/2 ML VIAL ONE (09:23)
[2022-02-03] MEDS ORDERED: HYDROMORPHONE HCL 1 MG/ML INJ ONE (09:24)
--- NOTE | 2022-02-03 09:27 | P.PN ---
Date of Service: 02/03/22 Subjective: Patient is awake and alert. Patient is ambulating about 120 feet with physical therapy. Objective: Vitals stable, afebrile Left great toe wound is open with no purulence with minimal edema and minimal erythema. There is no warmth. Assessment: Chronic osteomyelitis refractory to medical management. Plan: I had a long discussion with the granddaughter regarding all the options. As medical management has not worked for several months, we will proceed with partial great toe amputation. Granddaughter understands risks, benefits and alternatives and agrees to procedure. CC:
[2022-02-03] MEDS ORDERED: NS 0.9% VIAL 10 ML ONE (09:45)
[2022-02-03] MEDS ORDERED: EPHEDRINE SULF 50 MG/ML VIAL ONE (09:45)
[2022-02-03] MEDS ORDERED: Phenylephrine HCl 10 MG/ML 1 ML VIAL ONE (10:07)
--- NOTE | 2022-02-03 10:41 | P.OP ---
Date of Service: 02/03/22 Preop diagnosis: Left great toe nonhealing wound with chronic osteomyelitis Postop diagnosis: Same Procedure performed: Partial left great toe amputation Surgeon: Thom Bhagat MD Meat Cutting Block Repairer: None Estimated blood loss: Minimal Specimen: Left great toe distal phalanx Findings: As above Anesthesia: MAC Complications: None Drains: None Fluids and blood products: Nonapplicable Disposition: Recovery room Operative note: Patient brought to the OR and placed in supine position. MAC anesthesia begun. Patient prepped and draped in usual sterile fashion. Marcaine 0.5% infiltrated in a field block fashion. 15 blade used to make incision over the distal proximal phalanx over the skin [place] in nature all the way around the toe the exposed joint was excised with the distal phalanx and sent to pathology. Rongeurs were used to debride the proximal phalanx until healthy bone was encountered then rasp was used to smooth the rough edges. And bleeding was controlled with cautery. 2-0 chromic was used to reapproximate subcutaneous tissue. 3-0 nylon was used to close skin loosely. Sterile dressing applied. Patient awakened taken to recovery room in good general condition. CC:
[2022-02-03] MEDS ORDERED: CODEINE 30MG/APAP 300MG TAB PO PRN (10:45)
[2022-02-03] MEDS: PANTOPRAZOLE 40 MG INJ IVP SCH ×2 (12:30→21:01)
[2022-02-03] MEDS: THIAMINE 200 MG/2 ML INJ IVP SCH ×2 (12:30→21:01)
[2022-02-03] MEDS: DAPTOmycin 500 MG in NA CHLORIDE 0.9% 100 ML IVPB SCH (12:54)
[2022-02-03 15:00] VITALS: O2SAT 100
[2022-02-03] MEDS: RIVAROXABAN 2.5 MG PO SCH (21:01)
[2022-02-03] MEDS: QUETIAPINE 25 MG TAB PO SCH (21:02)
[2022-02-04 05:25] LABS: Absolute Lymphocytes (CBC) 1.3 K/uL (0.7-4.9); Hematocrit 27.5 % (39.6-49.0); Lymphocytes % 12.5 % (15.3-44.8); MCV 90.9 fL (80-100); MPV 8.9 fL (7.6-11.3); RBC Red Blood Cell Count 3.02 M/uL (4.33-5.43)
[2022-02-04 05:43] LABS: Phosphorus 2.2 mg/dL (2.5-4.9)
[2022-02-04 05:44] LABS: Potassium 3.5 mmol/L (3.5-5.1)
[2022-02-04] MEDS: LEVOTHYROXINE SOD 0.075 MG TAB PO SCH (06:12)
[2022-02-04 06:40] VITALS: BMI 22.4
[2022-02-04] MEDS: INSULIN -REGULAR HUMAN 50 UNIT/0.5 ML ML SQ SCH ×3 (07:19→17:17)
[2022-02-04] MEDS: RIVAROXABAN 2.5 MG PO SCH (07:35)
[2022-02-04] MEDS: PIPER TAZO 3.375 GM in NA CHLORIDE 0.9% 100 ML IV SCH (07:35)
[2022-02-04] MEDS: PANTOPRAZOLE 40 MG INJ IVP SCH (07:35)
[2022-02-04] MEDS: FLUOXETINE 10 MG CAP PO SCH (07:36)
[2022-02-04] MEDS: LACTOBACILLUS/ACIDOPHILUS TAB PO SCH (07:36)
[2022-02-04] MEDS: AMLODIPINE 10 MG TAB PO SCH (07:36)
[2022-02-04] MEDS: ASPIRIN 81 MG CHEWABLE TABLET PO SCH (07:36)
[2022-02-04] MEDS: THIAMINE 200 MG/2 ML INJ IVP SCH (07:45)
[2022-02-04] MEDS: POTASS/SODIUM PHOSPHATE 1 PKT POWD.PACK PO SCH ×3 (07:46→11:55)
--- NOTE | 2022-02-04 09:01 | P.PN ---
Date of Service: 02/03/22 Subjective Subjective: Status post amputation of the toe. Appears to be close. Spoke to granddaughter Daily wants patient to go to [facility] after discharge. Patient has been accepted. Anticipate discharge to [facility] in a.m. Review of Systems is unable to be obtained Physical Examination - Vital Signs Reviewed - Physical Exam General: Alert, In no apparent distress; trying to answer some of my questions Respiratory: Clear to auscultation bilaterally, Normal air movement Cardiovascular: Regular rate/rhythm, Normal S1 S2 Gastrointestinal: Normal bowel sounds, No tenderness Neurological: more awake and alert Assessment & Plan - Problems (Diagnosis) (1) Altered mental status/Metabolic encephalopathy Current Visit: No Status: Acute (2) CVA (cerebral vascular accident) Current Visit: No Status: chronic (3) Depression Current Visit: No Status: chronic (4) Hypercalcemia Current Visit: No Status: Acute (5) Hx of multiple myeloma Current Visit: No Status: Acute (6) Hypertension Current Visit: No Status: Acute (7) Hypothyroidism Current Visit: No Status: Acute (8) Presence of Watchman left atrial appendage closure device/Atrial fibrillation Current Visit: No Status: Acute (9) Diabetes mellitus Current Visit: No Status: Chronic - Plan Continue with plan of care as mentioned below: -Status post surgery. To [facility] in a.m. -CONTINUE WITH IV ANTIBIOTICS -Continue pain control -MONITOR RENAL FUNCTION AND ELECTROLYTES -Mentation improved Time Spent Managing PTS Care (In Minutes): 35
[2022-02-04] MEDS ORDERED: POTASSIUM CL SA 10 MEQ TAB PO ONE (10:00)
[2022-02-04] MEDS ORDERED: DOXYCYCLINE 100 MG CAP PO SCH (11:00)
[2022-02-04 17:10] VITALS: BP 127/68; TEMP 96.3
[2022-02-04] MEDS ORDERED: PANTOPRAZOLE 40MG TABLET PO SCH (21:00)
--- NOTE | 2022-02-07 11:46 | PN ---
Subjective: Patient lying in bed, had partial amputation of the toe done today, not in any distress, somnolent. Objective: Vital Signs: Temperature 96.9, pulse 81, respirations 16, blood pressure 116/74. Lungs: Basal crackles. Heart: S1, S2. Regular. Abdomen: Soft, nontender. Extremities: No edema. Foot under surgical wrap. Laboratory Data: WBC 12.3, hemoglobin 10.6, platelets are 207. Chemistry shows sodium 143, potassiu m 3.6, chloride 110, bicarb 28, BUN 8, creatinine 1.09, glucose 187. Medications: Patient currently on daptomycin, which was started yesterday and Zosyn. Plan: If the patient continues to improve, discontinue IV antibiotic and can be switched to oral ant ibiotic for 7 more days. Consider doxycycline and Cipro. No other recommendation at this time. We will follow the patient as needed. NF/MODL Voice ID: [id number] Report ID: [id number]
== END 2022-02-04 18:40 | DRG 853 ==
LOC: ER 05:11 → ERHOLD 06:36 → OBSVTOIN 10:55 → 3RD-ICU 20:38
PROVIDERS: ADMIT Internal Medicine; ATTEND Hospitalist
PROC: 02HV33Z Insertion of Infusion Device into Superior Vena Cava, Percutaneous Approach (ICD-10-PCS; 2022-02-02)
PROC: 0Y6Q0Z3 Detachment at Left 1st Toe, Low, Open Approach (ICD-10-PCS; principal; 2022-02-04)
DX: A41.9 Sepsis, unspecified organism (principal); G92.8 Other toxic encephalopathy; N17.9 Acute kidney failure, unspecified; N39.0 Urinary tract infection, site not specified; E44.0 Moderate protein-calorie malnutrition; M86.172 Other acute osteomyelitis, left ankle and foot; E87.1 Hypo-osmolality and hyponatremia; C90.00 Multiple myeloma not having achieved remission; K92.1 Melena; E87.0 Hyperosmolality and hypernatremia; L03.116 Cellulitis of left lower limb; R65.20 Severe sepsis without septic shock; I10 Essential (primary) hypertension; E03.9 Hypothyroidism, unspecified; E78.5 Hyperlipidemia, unspecified; E11.51 Type 2 diabetes mellitus with diabetic peripheral angiopathy without gangrene; E11.65 Type 2 diabetes mellitus with hyperglycemia; E11.69 Type 2 diabetes mellitus with other specified complication; E11.40 Type 2 diabetes mellitus with diabetic neuropathy, unspecified; D63.8 Anemia in other chronic diseases classified elsewhere; E86.0 Dehydration; E83.52 Hypercalcemia; F32.A Depression, unspecified; D63.1 Anemia in chronic kidney disease; R94.5 Abnormal results of liver function studies; R33.9 Retention of urine, unspecified; Z78.1 Physical restraint status; Z79.82 Long term (current) use of aspirin; Z68.23 Body mass index [BMI] 23.0-23.9, adult; Z79.02 Long term (current) use of antithrombotics/antiplatelets; Z79.84 Long term (current) use of oral hypoglycemic drugs; Z86.73 Personal history of transient ischemic attack (TIA), and cerebral infarction without residual deficits; Z79.890 Hormone replacement therapy; Z95.818 Presence of other cardiac implants and grafts; Z79.899 Other long term (current) drug therapy; Z20.822 Contact with and (suspected) exposure to COVID-19
CPT/HCPCS: 36415; 36569; 51702; 70450; 70551; 71045; 76700; 76857; 80048; 80053; 80202; 81001; 81003; 82274; 82550; 82553; 82805; 82947; 83036; 83605; 83735; 83880; 84100; 84132; 84145; 84484; 85025; 85610; 85730; 86850; 86900; 86901; 87040; 87045; 87046; 87070; 87075; 87086; 87088; 87177; 87205; 87209; 88305; 88311; 89055; 92610; 93005; 96361; 96374; 97116; 97161; 97530; 97597; 99251; 99285; A4216; C9113; G0378; J0878; J1170; J1630; J1815; J1940; J2001; J2250; J2370; J2405; J2430; J2543; J2704; J3010; J3370; J3411; J3475; J3480; J3486; J3590; J7030; J7040; J7050; J7120; U0003

== ENCOUNTER 2022-05-24 09:57 | Emergency (ER) | payer OTHER ==
--- OUTSIDE RECORDS SUMMARY | 2022-05-24 10:07 | XMS REPORT | Clinical Summary ---
:1935 Author Organization [facility] MD [facility] Center Address [address] [place] [id number] Care Team Providers Name Role Phone Celine Solis MD Primary Care Provider Remington Abraham MD Unavailable Remington Abraham MD Unavailable Aditi Butts NP Unavailable Nancy Galaviz SCARFER Unavailable Celine Solis MD Unavailable Gloria Hernandez MD Unavailable [phone] Allergies No known active allergies Medications Medication [...] Encounters Date Type Specialty Care Team Description 03/02/2022 Telephone Lymphoma and Myeloma Alison Mcgarry 03/02/2022 Documentation Lymphoma and Myeloma Alison Mcgarry 07/23/2021 Telephone Lymphoma and Myeloma Shalonda Kim Ap pointment RN 06/10/2021 Orders Only Lymphoma and Myeloma Aditi Butts ltiple myeloma A, SCARFER (Primary Dx) after 05/24/2021 Immunizations Name Administration Dates Next Due Influenza, [...] Tobacco Use Types Packs/Day Years Used Date Smoking Tobacco: Former Cigars Smokeless Tobacco: Never Comments: quit in 1958 Alcohol Use Standard Drinks/Week Comments No 0 (1 standard drink = 0.6 oz pure alcoho l) Sex Assigned at Date Recorded Not on file Obstetrics History Last Filed Vital Signs Not on file Plan of Treatment Health Maintenance Due Date Last Done Comments COVID-19 Vaccination (#1) 1935 Results Not on fileafter 05/24/2021 Insurance Payer Benefit Plan / Subscriber ID Effective Dates Phone Addre ss Type Group AETNA MEDICARE AETNA MEDICARE [id number] 2021-Presen [address] [place] [address] [phone] ([address] [place] [id number] Valerio France Personal/Family Self [phone] [place] [id number] Valerio France Personal/Family Self [phone] [facility] (Home) [address] [id number] 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
--- OUTSIDE RECORDS SUMMARY | 2022-05-24 10:12 | XMS REPORT | Continuity of Care Document ---
:1935 Author Organization [facility] t Address [address] [place] [address] Dr. [address] [place] [address] Care Team Providers Name Role Phone Nahid Marcial MD Primary Care Physician CINDA FAJARDO Attending Clinician Unavailable Ni Narvaez RN Attending Clinician Unavailable JERRY TAM Attending Clinician Unavailable Dwayne Barnett DO Attending Clinician Jerry Tam DO Attending Clinician Alex Ladd RN Attending Clinician Unavailable Antonia Villarreal Attending Clinician Marianela Bentley MD Attending Clinician Yocasta Jara DO Attending Clinician YOCASTA JARA Attending Clinician Unavailable Ara Altman DPM Attending Clinician Alison Mcgarry Attending Clinician Unavailable Shalonda Kim RN Attending Clinician Tonia Grant NP Attending Clinician Doctor Unassigned, [place] Attending Clinician Unavailable BRADFORD ARIZA Attending Clinician Unavailable KATELYN PRIDE Attending Clinician Unavailable Ashley Franz Attending Clinician ISSA OBRIEN Attending Clinician Unavailable Lab, Adc Fam Pob I Attending Clinician Unavailable Issa Claire Attending Clinician NAHID MARCIAL Attending Clinician Unavailable TONIA GRANT Attending Clinician Unavailable Simone Rodrigues Attending Clinician Bradford Ariza Attending Clinician JERRY TAM Admitting Clinician Unavailable Jerry Tam DO Admitting Clinician Marianela Bentley MD Admitting Clinician MARIANELA BENTLEY Admitting Clinician Unavailable BRADFORD ARIZA Admitting Clinician Unavailable Simone Rodrigues Admitting Clinician Payers Payer Name Policy Type Policy Number Effective Date Expiration Date S astrid [employer] MEDICARE [id number] 2013 PPO 00:00:00 [employer]ET[employer] MEDICARE [id number] 2013 PPO 00:00:00 MEDICARE [id number] 2013 2013 ADVANTAGE GENERIC 00:00:00 00:00:00 Problems Condition Condition Condition Status Onset Resolution Last Treating Co mments Source Name Details Category Date Date Treatment Clinician Date Primary Primary Disease Recurre 2021-05 Univer s hypertensi hypertensi nce 2-03 it y of on on 00:00: [place] 00 Medical Branch Open wound Open wound Disease Active 2021-05 U nivers of second of second 06-27 ity of toe of toe of 00:00: [place] left foot, left foot, 00 Me dical initial initial Branch encounter encounter Confusion Confusion Disease Active 2021-05 Overview: Univers 06-26 Formattin ity of 00:00: g of this [place] 00 note Medical might be Branch different from the original. Added automatic ally from request for surgery [id number] Cerebral Cerebral Disease Active 2021-05 Overview: Un laura infarction infarction 06-26 Formattin ity of due to due to 00:00: g of this [place] embolism embolism 00 note Medica l of of might be Branch bilateral bilateral different middle middle from the cerebral cerebral original. 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 2-28 ity of 00:00: [place] 00 MD [facility] Renal Renal Disease Active Univers insufficie insufficie 2-28 it y of ncy ncy 00:00: [place] 00 MD [facility] Abdominal Abdominal Disease Active 2017-05 Uni vers bruit bruit 0-03 ity of 00:00: [place] 00 MD [facility] Influenza Influenza Disease Active 2017-05 Uni vers vaccine vaccine 0-03 ity of needed needed 00:00: [place] 00 MD [facility] Hypothyroi Hypothyroi Disease Active 2015-05 Last U nivers dism dism 0-08 Assessmen ity of 00:00: t & Plan: [place] 00 [place] MURRAY g of this Prisca note n might be Cancer different Center from the original. Continue on synthroid . This is monitored by his local physician . Essential Essential Disease Active 2015-05 Last Uni vers hypertensi hypertensi 0-08 Assessmen ity of on on 00:00: t & Plan: [place] 00 [place] MURRAY g of this Prisca note is n different Cancer from the Center original. His blood pressure is BP Readings from Last 1 Encounter s: 02/22/17 132/79 . Continue current blood pressure regimen and follow with PCP. Type 2 Type 2 Disease Active 2015-05 Last Univers diabetes diabetes 0-08 Assessmen ity of mellitus mellitus 00:00: t & Plan: Jose as without without 00 Medina ryan compllena springer of this Anderso on on note n might be Cancer different Center from the original. He will continue on and follow with his local PCP. 436 - CVA 436 - CVA Diagnosis Active 2013-12-06 Memoria Active 11-25 10:30:00 l 11/25/2013 00:01: Pradip DUKES OPID 00 Vik STROKE STROKE Diagnosis Active 2013-12-06 Me moria Active 11-25 13:21:00 l 11/25/2013 00:00: Pradip DUKES TIRR 00 Type II Type II Problem Active 2019-05-07 Me moria diabetes diabetes 22:42:21 l mellitus mellitus Pradip n uncontroll uncontroll ed ed (finding) (finding) Active Problem 05/07/2019 ERNST Anderson TRANSIENT TRANSIENT Diagnosis Active 2019-05-10 Memoria CEREBRAL CEREBRAL 22:06:00 l ISCHEMIC ISCHEMIC Pradip n ATTACK, ATTACK, UNSP UNSP Active [facility] Vik Diabetes Diabetes Problem Resolve 2019-05-07 Memoria mellitus mellitus d 22:42:21 l (disorder) (disorder) He rmann Resolved Problem 05/07/2019 Alexis Newman, SUZETTE [place] Hypertensi Hypertens Problem Resolve 2019-05-07 Memoria ve shailesh d 22:42:21 l disorder, disorder, Herm filemon systemic systemic arterial arterial (disorder) (disorder) Resolved Problem 05/07/2019 Alexis Newman, OPIAlexander [place] Transient Transient Problem Resolve 2019-05-07 Memoria ischemic ischemic d 22:42:21 l attack attack Vik (disorder) (disorder) Resolved Problem 05/07/2019 Alexis Newman, SUZETTE Vik Allergies, Adverse Reactions, Alerts Allergy Allergy Status Severity Reaction(s) Onset Inactive Treating Comm ents Source Name Type Date Date Clinician NO KNOWN Drug Active Univers ALLERGIE Class ity of S [place] [facility] Family History Family Member Diagnosis Comments Start Date Stop Date Source Natural father -Genitourinary Univer [facility] (Bladder, Kidney, MD Villatoro rson Cancer Prostate, Testicle) Christiano hines Social History Social Habit Start Date Stop Date Quantity Comments Source History of Cigarette Smoker Universi ty of tobacco use [place] [facility] [place] Exposure to 2022-04-22 2022-05-02 Unable to assess Univers ity of SARS-CoV-2 00:00:00 07:40:00 [place] [facility] (event) Branch Social History 2019-05-05 2019-05-05 Katherine valencia 04:07:57 04:07:57 Alcohol intake 2018-03-23 2018-03-23 Current University of 00:00:00 00:00:00 non-drinker of [facility] Tobacco Comment 2015-09-22 2015-09-22 quit in 1958 Univers ity of 00:00:00 00:00:00 [facility] Tobacco use and 2015-09-22 2015-09-22 Smokeless tobacco Un iversity of exposure 00:00:00 00:00:00 non-user [facility] Sex Assigned At [birth year] Universit y of 00:00:00 00:00:00 [facility] Smoking Status Start Date Stop Date Source Ex-smoker 2022-05-02 00:00:00 2022-05-02 Crum o f [place] 00:00:00 Medical Branch Tobacco smoking University [facility] [place] xa consumption unknown Medical [facility] Medications Ordered Filled Start Stop Current Ordering Indication Dosage Frequency Signature Comments Components Source Medication Medication Date Date Medication? Clinician (SIG) Name Name atorvastati 2021-05 Yes 80mg Take 80 mg Univers n 80 mg 2-09 by mouth ity of tablet 18:49: at [place] [address] bedtime. Medical Branch rivaroxaban 2021-05 Yes 2.5mg Take 2.5 U nivers 2.5 mg 2-09 mg by ity of tablet 18:49: mouth in [place] the Medical morning Branch and 2.5 mg in the evening. metFORMIN 2021-05 Yes 500mg Take 500 Uni vers 1,000 mg 2-09 mg by ity of tablet 18:49: mouth in [place] [address] the Medical morning Branch and 500 mg in the evening. Take with meals. aspirin 81 2021-05 Yes 81mg Take 81 mg U nivers mg chewable 2-09 by mouth ity of tablet 18:49: in the [place] [address] morning. Medical Branch glyBURIDE 2021-05 Yes 2mg Take 2 mg Uni vers 2.5 mg 2-09 by mouth ity of tablet 18:49: daily with [place] [address] breakfast. Medical Branch traZODone 2021-05 Yes 50mg Take 50 mg Un laura 50 mg 2-09 by mouth ity of tablet 18:49: at [place] [address] bedtime. Medical Branch levothyroxi 2021-05 Yes 75ug Take 75 Uni vers ne 100 mcg 2-09 mcg by ity of tablet 18:49: mouth. [place] [facility] atorvastati 2021-05 Yes 80mg Take 80 mg Univers n 80 mg 2-09 by mouth ity of tablet 18:49: at [place] [address] bedtime. Medical Branch rivaroxaban 2021-05 Yes 2.5mg Take 2.5 U nivers 2.5 mg 2-09 mg by ity of tablet 18:49: mouth in [place] [address] the Medical morning Branch and 2.5 mg in the evening. metFORMIN 2021-05 Yes 500mg Take 500 Uni vers 1,000 mg 2-09 mg by ity of tablet 18:49: mouth in [place] [address] the Medical morning Branch and 500 mg in the evening. Take with meals. aspirin 81 2021-05 Yes 81mg Take 81 mg U nivers mg chewable 2-09 by mouth ity of tablet 18:49: in the [place] morning. Medical Branch glyBURIDE 2021-05 Yes 2mg Take 2 mg Uni vers 2.5 mg 2-09 by mouth ity of tablet 18:49: daily with [place] [address] breakfast. Medical Branch traZODone 2021-05 Yes 50mg Take 50 mg Un laura 50 mg 2-09 by mouth ity of tablet 18:49: at [place] [address] bedtime. Medical Branch levothyroxi 2021-05 Yes 75ug Take 75 Uni vers ne 100 mcg 2-09 mcg by ity of tablet 18:49: mouth. [place] [address] Medical Branch LORazepam 2021-05- No 1mg 1 mg, Slow U nivers (ATIVAN) 2- 12-09 IV Push, ity of injection 1 07:45: 07:04 ONCE, 1 [place] mg 00 :00 dose, On Medical Fri Branch 05/06/22 at 0145, Routine QUEtiapine 2021-05- Yes [id number] 12.5mg Take 0.5 Univers 25 mg 07-07 [id number] tablets by ity o f tablet 00:00: 05:59 mouth at [place] 00 :00 bedtime as Medical needed Branch (agiation) for up to 30 days. QUEtiapine 2021-05- Yes [id number] 12.5mg Take 0.5 Univers 25 mg 07-07 [id number] tablets by ity o f tablet 00:00: 05:59 mouth at [place] 00 :00 bedtime as Medical needed Branch (agiation) for up to 30 days. Vancomycin 2021-05 Yes 750mg 750 mg, IV Univers 750 mg in 208 Piggyback, ity of NaCl 0.9% 15:00: Q12H ABX, Jose as (NS) 250 mL 00 First dose Me dical VIAL-MATE on [facility] 05/05/22 at 0900, Until Discontinu ed, Administer over 60 Minutes, 250 mL
Reas on for Anti-Infec tive: Empiric Therapy for Suspected Infection< br>Empiric Therapy Site: Bone
Du ration of therapy: 5 days aspirin 2021-05 Yes 81mg 81 mg, Univers chewable 206 Oral, ity of tablet 81 15:00: DAILY, [place] mg 00 First dose Medical on [facility] 05/03/22 at 0900, Until Discontinu ed, Routine levothyroxi 2021-05 Yes 75ug 75 mcg, Uni vers ne 2 Oral, ity of (SYNTHROID) 12:00: QAM-0600, [place] tablet 75 00 First dose Medi [place]rit[place] mcg on [facility] 05/03/22 at 0600, Until Discontinu ed, Routine ceFEPIme 2021-05- Yes 1000mg 1,000 mg, U nivers (MAXIPIME) 2 12-13 IV ity of 1,000 mg in 09:15: 09:14 Piggyback, [place] NaCl 0.9% 00 :00 Q12H ABX, Medic al (NS) 50 mL 14 doses, Bran ch MINI-BAG First dose on Mon05/03/22 at 0315, Last dose on 05/09/22 at 1515, Administer over 4 Hours, 50 mL
Reas on for Anti-Infec tive: Empiric Therapy for Suspected Infection< br>Empiric Therapy Site: Bone
Du ration of therapy: 5 days atorvastati 2021-05 Yes 80mg 80 mg, Univ ers n (LIPITOR) 2-06 Oral, QHS, it y of tablet 80 03:00: [place] 00 on [facility] 05/02/22 at Branch 2100, Until Discontinu ed, Routine rivaroxaban 2021-05 Yes 2.5mg 2.5 mg, Un laura (XARELTO) 2-06 Oral, BID, ity of tablet 2.5 02:00: First dose [place] mg 00 on [facility] 05/02/22 at Branch 2000, Until Discontinu ed, Routine QUEtiapine 2021-05 Yes 12.5mg 12.5 mg, U nivers (SEROQUEL) 2-05 Oral, ity of tablet 12.5 22:48: BIDPRN, [place] as mg 44 Starting Medical on [facility] 05/02/22 at 1648, Until Discontinu ed, Routine, agiation ceFEPIme 2021-05 No 1000mg 1,000 mg, U nivers (MAXIPIME) 2 12-05 IV ity of 1,000 mg in 21:00: 21:02 [place], [place] NaCl 0.9% 00 :21 ONCE, 1 Medical (NS) 50 mL dose, On Branc h MINI-BAG [facility] 05/02/22 at 1500, Administer over 30 Minutes, 50 mL
Reas on for Anti-Infec tive: Empiric Therapy for Suspected Infection< br>Empiric Therapy Site: Bone
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
Reas on for Anti-Infec tive: Empiric Therapy for Suspected Infection< br>Empiric Therapy Site: Bone
Du ration of therapy: 5 days Sliding 2021-05 Yes Subcutaneo Univ ers Scale 2-05 us, TID ity of Insulin - 18:00: MEALS+HS, [place] as Lispro 00 First dose Medical (HumaLOG) + on Mon Branch Fsbg 05/02/22 at Testing 1200, Until Discontinu ed, Routine losartan 2021-05 Yes 25mg 25 mg, Univers (COZAAR) 2-05 Oral, ity of tablet 25 18:00: DAILY, [place] mg 00 First dose Medical on Mon Branch 05/02/22 at 1200, Until Discontinu ed, Routine dextrose 2021-05 Yes 250mL 250 mL, IV Un laura 10% (D10W) 2-05 Infusion, ity of bolus 17:59: PRN - SEE [place] infusion 29 INSTRUCTIO Medic al 250 mL NS, Branch Administer over 60 Minutes, Other, If blood glucose is < or = 70 mg/dL and patient is unable to swallow or has mental status changes, Starting on Mon05/02/22 at 1159
If blood glucose is < or = 70 mg/dL and patient is unable to swallow or has mental status changes (Give glucagon order if patient needs fluid restrictio n): IF IV access available: Dextrose 10%. 1. 125 mL (? bag) of D10W IV infusion - equivalent to 12.5 g dextrose 2. Blood glucose - draw blood glucose 15 minutes after D10W Administra tion. 3. If blood glucose is < 80 mg/dL, repeat.
glucagon 2021-05 Yes 1mg 1 mg, Univers (GLUCAGEN 2-05 Intramuscu ity of DIAGNOSTIC 17:59: lar, PRN, [place] KIT) 25 Starting Medical injection 1 on Mon Branch mg 05/02/22 at 1159, Until Discontinu ed, AUGIE, Blood Glucose < or = 70 mg/dL and patient is unable to swallow or has mental changes. ondansetron 2021-05 Yes 4mg 4 mg, Slow Univers (ZOFRAN 2-05 IV Push, ity of (PF)) 17:56: Q6HPRN, [place] injection 4 16 Starting Medi britney mg on Mon Branch 05/02/22 at 1156, Until Discontinu ed, Routine, Nausea and Vomiting (N/V) acetaminoph 2021-05 Yes 650mg 650 mg, Un laura en 2-05 Oral, ity of (TYLENOL) 17:56: Q6HPRN, [place] tablet 650 08 Starting Medic al mg on Mon Branch 05/02/22 at 1156, Until Discontinu ed, Routine, Pain (scale 1-3) hydralAZINE 2021-05 Yes 10mg 10 mg, Univ ers (APRESOLINE 2-05 Slow IV ity o f ) injection 17:54: Push, [place] 10 mg 33 Q6HPRN, Medical Starting Branch on Mon05/02/22 at 1154, Until Discontinu ed, Routine, DBP=>10 0; SBP=>160, For SBP > 160 NaCl 0.9% 2021-05 500mL at 999 Univ ers (NS) bolus 2-05 12-05 mL/hr, 500 it y of infusion 13:30: 15:00 mL, IV [place] 500 mL 00 :00 Infusion, Medical ONCE, 1 Branch dose, On Mon05/02/22 at 0730, STAT atorvastati 2021-05 Yes 80mg Take 80 mg Univers n 80 mg 2-05 by mouth ity of tablet 11:55: at [place] [address] bedtime. [facility] Branch rivaroxaban 2021-05 Yes 2.5mg Take 2.5 U nivers 2.5 mg 2-05 mg by ity of tablet 11:55: mouth in [place] [address] the [facility] Branch and 2.5 mg in the evening. metFORMIN 2021-05 Yes 500mg Take 500 Uni vers 1,000 mg 2-05 mg by ity of tablet 11:55: mouth in [place] [address] the [facility] Branch and 500 mg in the evening. Take with meals. aspirin 81 2021-05 Yes 81mg Take 81 mg U nivers mg chewable 2-05 by mouth ity of tablet 11:55: in the [place] [address] morning. [facility] Branch glyBURIDE 2021-05 Yes 2mg Take 2 mg Uni vers 2.5 mg 2-05 by mouth ity of tablet 11:55: daily with [place] [address] breakfast. [facility] Branch traZODone 2021-05 Yes 50mg Take 50 mg Un laura 50 mg 2-05 by mouth ity of tablet 11:55: at [place] [address] bedtime. Medical Branch levothyroxi 2021-05 Yes 75ug Take 75 Uni vers ne 100 mcg 2-05 mcg by ity of tablet 11:55: mouth. [place] [address] Medical Branch losartan 25 2021-05 Yes [id number] 25mg Take 1 Univers mg tablet 2-04 tablet by ity o f 00:00: mouth in [place] 00 the Medical morning. Branch losartan 25 2021-05 Yes [id number] 25mg Take 1 Univers mg tablet 2-04 tablet by ity o f 00:00: mouth in [place] 00 the Medical morning. Branch losartan 25 2021-05 Yes [id number] 25mg Take 1 Univers mg tablet 2-04 tablet by ity o f 00:00: mouth in [place] 00 the Medical morning. Branch losartan 25 2021-05 Yes [id number] 25mg Take 1 Univers mg tablet 2-04 tablet by ity o f 00:00: mouth in [place] [address] the Medical morning. Branch atorvastati 2021-05 Yes 80mg Take 80 mg Univers n (LIPITOR) 2-03 by mouth ity of 80 mg 21:52: at [place] [address] bedtime. Medical Branch rivaroxaban 2021-05 Yes 2.5mg Take 2.5 U nivers (XARELTO) 2-03 mg by ity of 2.5 mg 21:52: mouth in [place] [address] the Medical morning Branch and 2.5 mg in the evening. metFORMIN 2021-05 Yes 500mg Take 500 Uni vers 1,000 mg 2-03 mg by ity of tablet 21:52: mouth in [place] [address] the Medical morning Branch and 500 mg in the evening. Take with meals. aspirin 81 2021-05 Yes 81mg Take 81 mg U nivers mg chewable 2-03 by mouth ity of tablet 21:52: in the [place] [address] morning. Medical Branch glyBURIDE 2021-05 Yes 2mg Take 2 mg Uni vers 2.5 mg 2-03 by mouth ity of tablet 21:52: daily with [place] [address] breakfast. Medical Branch traZODone 2021-05 Yes 50mg Take 50 mg Un laura 50 mg 2-03 by mouth ity of tablet 21:52: at [place] [address] bedtime. Medical Branch levothyroxi 2021-05 Yes 75ug Take 75 Uni vers ne 100 mcg 2-03 mcg by ity of tablet 21:52: mouth. [address] cephALEXin 2021-05- Yes [id number] 500mg Take 1 Univers 500 mg 07-01 [id number] capsule by ity of capsule 00:00: 05:59 mouth 4 [place] 00 :00 ([facility] daily for 7 days. doxycycline 2021-05- Yes [id number] 100mg Take 1 Univers hyclate 100 07-01 [id number] capsule by ity of mg capsule 00:00: 05:59 mouth in [place] 00 :00 [facility] and 1 capsule in the evening. Do all this for 7 days. cephALEXin 2021-05- Yes [id number] 500mg Take 1 Univers 500 mg 07-01 [id number] capsule by ity of capsule 00:00: 05:59 mouth 4 [place] 00 :00 ([facility] daily for 7 days. doxycycline 2021-05- Yes [id number] 100mg Take 1 Univers hyclate 100 07-01 [id number] capsule by ity of mg capsule 00:00: 05:59 mouth in [place] 00 :00 [facility] and 1 capsule in the evening. Do all this for 7 days. cephALEXin 2021-05- Yes [id number] 500mg Take 1 Univers 500 mg 07-01 [id number] capsule by ity of capsule 00:00: 05:59 mouth 4 [place] 00 :00 ([facility] daily for 7 days. doxycycline 2021-05- Yes [id number] 100mg Take 1 Univers hyclate 100 07-01 [id number] capsule by ity of mg capsule 00:00: 05:59 mouth in [place] 00 :00 [facility] and 1 capsule in the evening. Do all this for 7 days. ceFEPIme 2021-05- No 1000mg 1,000 mg, U nivers (MAXIPIME) 06-30 IV ity of 1,000 mg in 11:30: 11:54 [place], [place] NaCl 0.9% 00 :00 ONCE, 1 Medical (NS) 50 mL dose, On Bran h MINI-BAG Mon04/29/22 at 0530, Administer over 30 Minutes, 50 mL
Reas on for Anti-Infec tive: Empiric Therapy for Suspected Infection< br>Empiric Therapy Site: Bone
Du ration of therapy: 72 hours vancomycin 2021-05 15mg/kg 1,250 mg Univers 1,250 mg in 06-30 (rounded ity of NaCl 0.9% 10:45: 12:29 from [place] (NS) 250 mL 00 :57 1,258.5 mg Me dical VIAL-MATE = 15 mg/kg Bran ch IV ?83.9 kg), piggyback IV Piggyback, Q12H ABX, 10 doses, First dose on Mon04/29/22 at 0445, Last dose on Mon05/03/22 at 1645, Administer over 90 Minutes, 250 mL
R dagoberto for Anti-Infec tive: Documented Infection< br>Documen danica Infection Site: Bone
Du ration of Therapy: 7 days HYDROcodone 2021-05 Yes 1{tbl} 1 tablet, Univers -acetaminop 2-02 Oral, ity of hen (NORCO 06:58: Q6HPRN, [place] 5) 5-325 mg 30 Starting Medi [place]rit[place] tablet 1 on Fri Branch tablet 04/29/22 at 0058, Until Discontinu ed, Routine, Pain (scale 4-6) HYDROcodone 2021-05 Yes 1{tbl} 1 tablet, Univers -acetaminop 2-02 Oral, ity of hen (NORCO 06:58: Q6HPRN, [place] 5) 5-325 mg 30 Starting Medi [place]rit[place] tablet 1 on Mon Branch tablet 04/29/22 at 0058, Until Discontinu ed, Routine, Pain (scale 4-6) FENTanyl PF 2021-05 Yes 25ug 25 mcg, Uni vers (SUBLIMAZE 2 Slow IV ity of (PF)) 06:57: [place], [place] injection 49 Q6HPRN, Medical 25 mcg Starting Branch on Mon04/29/22 at 0057, Until Discontinu ed, Routine, Pain (scale 7-10) FENTanyl PF 2021-05 Yes 25ug 25 mcg, Uni vers (SUBLIMAZE 2- Slow IV ity of (PF)) 06:57: [place], [place] injection 49 Q6HPRN, Medical 25 mcg Starting Branch on Mon04/29/22 at 0057, Until Discontinu ed, Routine, Pain (scale 7-10) ramelteon 2021-05- No 8mg 8 mg, Univer s (ROZEREM) 06-30 Oral, ity of tablet 8 mg 06:34: 06:45 ONCE, 1 [place] 00 :00 dose, On Medical Fri Branch 04/29/22 at 0045, Routine lactated 2021-05 Yes 500mL at 75 Univers ringers IV 2-01 mL/hr, 500 ity of infusion 20:30: mL, IV [place] 500 mL 00 Infusion, Medical CONTINUOUS Branch , Starting on [place] 04/28/22 at 1430, Until Discontinu ed, Routine, PACU lactated 2021-05 Yes 500mL at 75 Univers ringers IV 2-01 mL/hr, 500 ity of infusion 20:30: mL, IV [place] 500 mL 00 Infusion, Medical CONTINUOUS Branch , Starting on [place] 04/28/22 at 1430, Until Discontinu ed, Routine, PACU lidocaine 2021-05- No PRN, Univers 1% (PF) 06-29 Starting ity of (XYLOCAINE) 19:22: 20:06 on [place] as injection 00 :03 04/28/22 at [facility] 1322, Branch Until [place] 04/28/22 at 1406, Routine, Intra-op bupivacaine 2021-05- No PRN, Unive rs (preserv 06-29 Starting ity of free) 0.5% 19:21: 20:06 on [place] (SENSORCAIN 00 :03 04/28/22 at [facility] d[facility]) 0.5 1321, Branch % (5 mg/mL) Until [place] injection 04/28/22 at 1406, Routine, Intra-op magnesium 2021-05- No 4g 4 g, IV Univ ers sulfate in 06-29 Piggyback, it y of water 4 15:45: 23:15 at 25 [place] gram/50 mL 00 :00 mL/hr Medical (8 %) IV Administer Branc h Piggyback 4 over 120 g Minutes, ONCE, 1 dose, On [place] 04/28/22 at 0945, Routine atorvastati 2021-05 Yes 80mg Take 80 mg Univers n (LIPITOR) 2-01 by mouth ity of 80 mg 14:16: at [place] [address] bedtime. Medical Branch rivaroxaban 2021-05 Yes 2.5mg Take 2.5 U nivers (XARELTO) 2-01 mg by ity of 2.5 mg 14:16: mouth in [place] [address] the Medical morning Branch and 2.5 mg in the evening. metFORMIN 2021-05 Yes 500mg Take 500 Uni vers 1,000 mg 2-01 mg by ity of tablet 14:16: mouth in [place] [address] the [facility] morning Branch and 500 mg in the evening. Take with meals. aspirin 81 2021-05 Yes 81mg Take 81 mg U nivers mg chewable 2-01 by mouth ity of tablet 14:16: in the [place] [address] morning. Medical Branch glyBURIDE 2021-05 Yes 2mg Take 2 mg Uni vers 2.5 mg 2-01 by mouth ity of tablet 14:16: daily with [place] [address] breakfast. Medical Branch traZODone 2021-05 Yes 50mg Take 50 mg Un laura 50 mg 2-01 by mouth ity of tablet 14:16: at [place] [address] bedtime. Medical Branch levothyroxi 2021-05 Yes 75ug Take 75 Uni vers ne 100 mcg 2-01 mcg by ity of tablet 14:16: mouth. [address] Branch gadoteridol 2021-05- No [id number] .2mL/kg 16.78 mL Univers (PROHANCE-2 -04-28 [id number] (0.2 mL/kg ity of 0 mL) 10:15: 09:15 ?83.9 kg), [place] injection 00 :00 Intravenou Medi britney 16.78 mL s, ONCE, 1 Branc h dose, On Cande 04/28/22 at 0415, Routine atorvastati 2021-05 Yes 80mg 80 mg, Univ ers n (LIPITOR) 2-01 Oral, QHS, it y of tablet 80 03:00: First dose [place] mg 00 on Mon [facility] 04/27/22 Branch at 2100, Until Discontinu ed, Routine atorvastati 2021-05 Yes 80mg 80 mg, Univ ers n (LIPITOR) 2-01 Oral, QHS, it y of tablet 80 03:00: First dose [place] mg 00 on Mon Medical 04/27/22 Branch at 2100, Until Discontinu ed, Routine hydralAZINE 2021-05 No 10mg 10 mg, Uni vers (APRESOLINE 1-30 11-30 Slow IV ity of ) injection 19:30: 18:48 [place], [place] 10 mg 00 :00 ONCE, 1 Medical dose, On Branch Mon04/27/22 at 1330, STAT hydralAZINE 2021-05 Yes 10mg 10 mg, Univ ers (APRESOLINE 1-30 Slow IV ity o f ) injection 18:43: Push, [place] 10 mg 47 Q6HPRN, Medical Starting Branch on Mon04/27/22 at 1243, Until Discontinu ed, Routine, DBP=>10 0; SBP=>180 hydralAZINE 2021-05 Yes 10mg 10 mg, Univ ers (APRESOLINE 1-30 Slow IV ity o f ) injection 18:43: Push, [place] 10 mg 47 Q6HPRN, Medical Starting Branch on Mon04/27/22 at 1243, Until Discontinu ed, Routine, DBP=>10 0; SBP=>180 Saline 2021-05 Yes [id number] 6mL 6 mL, Uni vers Bubble 1-30 [id number] Injection, ity o f Study 17:06: SEE-[address], Medical Starting Branch on Mon04/27/22 at 1106, Until Discontinu ed, Routine Saline 2021-05 Yes [id number] 6mL 6 mL, Uni vers Bubble -30 [id number] Injection, ity o f Study 17:06: SEE-[facility] 39 CTIONS, Medical Starting Branch on Mon04/27/22 at 1106, Until Discontinu ed, Routine Saline 2021-05 Yes [id number] 6mL 6 mL, Uni vers Bubble 1-30 [id number] Injection, ity o f Study 17:06: [place] [address] [place], Medical Starting Branch on Mon04/27/22 at 1106, Until Discontinu ed, Routine Saline 2021-05 Yes [id number] 6mL 6 mL, Uni vers Bubble 1-30 [id number] Injection, ity o f Study 17:06: SEE-[place] [address] CTIONS, Medical Starting Branch on Mon04/27/22 at 1106, Until Discontinu ed, Routine aspirin 2021-05- No 81mg 81 mg, Univers chewable 06-27 Oral, ity of tablet 81 15:00: 19:17 DAILY, [place] mg 00 :16 First dose Medical on [facility] Branch 04/27/22 at 0900, Until Discontinu ed, Routine nystatin 2021-05 Yes Topical, Unive rs (NYSTOP) 1-30 BID, First ity o f powder 14:00: dose on [facility] 04/27/22 Branch at 0800, Until Discontinu ed, Routine Sliding 2021-05 Yes Subcutaneo Univ ers Scale 1-30 us, TID ity of Insulin - 14:00: MEALS+HS, [place] as Lispro 00 First dose Medical (HumaLOG) + on Mon [place] [facility] 04/27/22 Testing at 0800, Until Discontinu ed, Routine nystatin 2021-05 Yes Topical, Unive rs (NYSTOP) 1-30 BID, First ity o f powder 14:00: dose on [facility] 04/27/22 Branch at 0800, Until Discontinu ed, Routine Sliding 2021-05 Yes Subcutaneo Univ ers Scale 1-30 us, TID ity of Insulin - 14:00: MEALS+HS, [place] Lispro 00 First dose Medical (HumaLOG) + on Mon [place] 04/27/22 Testing at 0800, Until Discontinu ed, Routine rivaroxaban 2021-05 No 2.5mg 2.5 mg, U nivers (XARELTO) 06-27 Oral, BID, ity of tablet 2.5 14:00: 19:17 First dose [place] mg 00 :16 on [facility] 04/27/22 Branch at 0800, Until Discontinu ed, Routine levothyroxi 2021-05 Yes 75ug 75 mcg, Uni vers ne 1-30 Oral, ity of (SYNTHROID) 12:00: QAM-0600, [place] tablet 75 00 First dose Medi [place] mcg on Mon Branch 04/27/22 at 0600, Until Discontinu ed, Routine levothyroxi 2021-05 Yes 75ug 75 mcg, Uni vers ne 1-30 Oral, ity of (SYNTHROID) 12:00: QAM-0600, [place] tablet 75 00 First dose Medi [place] mcg on Mon Branch 04/27/22 at 0600, Until Discontinu ed, Routine losartan 2021-05 Yes 25mg 25 mg, Univers (COZAAR) 1-30 Oral, ity of tablet 25 09:00: DAILY, [place] mg 00 First dose Medical on Mon Branch 04/27/22 at 0300, Until Discontinu ed, Routine losartan 2021-05 Yes 25mg 25 mg, Univers (COZAAR) 1-30 Oral, ity of tablet 25 09:00: DAILY, [place] mg 00 First dose Medical on Mon Branch 04/27/22 at 0300, Until Discontinu ed, Routine dextrose 2021-05 Yes 250mL 250 mL, IV Un laura 10% (D10W) 1-30 Infusion, ity of bolus 06:14: PRN - SEE [place] infusion 09 INSTRUCTIO Medic al 250 mL NS, Branch Administer over 60 Minutes, Other, If blood glucose is < or = 70 mg/dL and patient is unable to swallow or has mental status changes, Starting on Mon04/27/22 at 0014
If blood glucose is < or = 70 mg/dL and patient is unable to swallow or has mental status changes (Give glucagon order if patient needs fluid restrictio n): IF IV access available: Dextrose 10%. 1. 125 mL (? bag) of D10W IV infusion - equivalent to 12.5 g dextrose 2. Blood glucose - draw blood glucose 15 minutes after D10W Administra tion. 3. If blood glucose is < 80 mg/dL, repeat.
glucagon 2021-05 Yes 1mg 1 mg, Univers (GLUCAGEN 1-30 Intramuscu ity of DIAGNOSTIC 06:14: lar, PRN, [place] KIT) 09 Starting Medical injection 1 on Mon Branch mg 04/27/22 at 0014, Until Discontinu ed, AUGIE, Blood Glucose < or = 70 mg/dL and patient is unable to swallow or has mental changes. ondansetron 2021-05 Yes 4mg 4 mg, Slow Univers (ZOFRAN 1-30 IV Push, ity of (PF)) 06:14: Q6HPRN, [place] injection 4 09 Starting Medi [place] mg on Mon Branch 04/27/22 at 0014, Until Discontinu ed, Routine, Nausea and Vomiting (N/V) acetaminoph 2021-05 Yes 650mg 650 mg, Un laura en 1-30 Oral, ity of (TYLENOL) 06:14: Q6HPRN, [place] tablet 650 09 Starting Medic al mg on Mon Branch 04/27/22 at 0014, Until Discontinu ed, Routine, Pain (scale 1-3) dextrose 2021-05 Yes 250mL 250 mL, IV Un laura 10% (D10W) 1-30 Infusion, ity of bolus 06:14: PRN - SEE [place] infusion 09 INSTRUCTIO Medic al 250 mL NS, Branch Administer over 60 Minutes, Other, If blood glucose is < or = 70 mg/dL and patient is unable to swallow or has mental status changes, Starting on 04/27/22 at 0014
If blood glucose is < or = 70 mg/dL and patient is unable to swallow or has mental status changes (Give glucagon order if patient needs fluid restrictio n): IF IV access available: Dextrose 10%. 1. 125 mL (? bag) of D10W IV infusion - equivalent to 12.5 g dextrose 2. Blood glucose - draw blood glucose 15 minutes after D10W Administra tion. 3. If blood glucose is < 80 mg/dL, repeat.
glucagon 2021-05 Yes 1mg 1 mg, Univers (GLUCAGEN 1-30 Intramuscu ity of DIAGNOSTIC 06:14: lar, PRN, [place] KIT) 09 Starting Medical injection 1 on Wed Branch mg 04/27/22 at 0014, Until Discontinu ed, AUGIE, Blood Glucose < or = 70 mg/dL and patient is unable to swallow or has mental changes. ondansetron 2021-05 Yes 4mg 4 mg, Slow Univers (ZOFRAN 1-30 IV Push, ity of (PF)) 06:14: Q6HPRN, [place] injection 4 09 Starting Medi [place] mg on Wed Branch 04/27/22 at 0014, Until Discontinu ed, Routine, Nausea and Vomiting (N/V) acetaminoph 2021-05 Yes 650mg 650 mg, Un laura en 1-30 Oral, ity of (TYLENOL) 06:14: Q6HPRN, [place] tablet 650 09 Starting Medic al mg on Mon04/27/22 at 0014, Until Discontinu ed, Routine, Pain (scale 1-3) NaCl 0.9% 2021-05- No 500mL at 999 Univ ers (NS) bolus 06-27 11-30 mL/hr, 500 it y of infusion 00:30: 02:07 mL, IV [place] 500 mL 00 :00 Infusion, Medical ONCE, 1 Branch dose, On Mon04/26/22 at 1830, STAT NaCl 0.9% 2020- No 500mL at [...] 1,200 mg at 1700, Routine ondansetron Yes [id number] 4mg Take 1 Univers (ZOFRAN 02-04 tablet by ity of ODT) 4 mg 00:00: mouth [place] disintegrat 00 every 8 Medic al ing tablet (eight) Branch hours as needed for Nausea and Vomiting (N/V). ondansetron 2021-0 Yes [id number] 4mg Take 1 Univers (ZOFRAN 9-09 tablet by ity of ODT) 4 mg 00:00: mouth [place] disintegrat 00 every 8 Medic al ing tablet (eight) Branch hours as needed for Nausea and Vomiting (N/V). ondansetron 2021-0 Yes [id number] 4mg Take 1 Univers (ZOFRAN 9-09 tablet by ity of ODT) 4 mg 00:00: mouth [place] disintegrat 00 every 8 Medic al ing tablet (eight) Branch hours as needed for Nausea and Vomiting (N/V). ondansetron 2021-0 Yes [id number] 4mg Take 1 Univers (ZOFRAN 9-09 tablet by ity of ODT) 4 mg 00:00: mouth [place] disintegrat 00 every 8 Medic al ing tablet (eight) Branch hours as needed for Nausea and Vomiting (N/V). ondansetron 2021-0 Yes [id number] 4mg Take 1 Univers (ZOFRAN 9-09 tablet by ity of ODT) 4 mg 00:00: mouth [place] disintegrat 00 every 8 Medic al ing tablet (eight) Branch hours as needed for Nausea and Vomiting (N/V). ondansetron 2021-0 Yes [id number] 4mg Take 1 Univers (ZOFRAN 9-09 tablet by ity of ODT) 4 mg 00:00: mouth [place] disintegrat 00 every 8 Medic al ing tablet (eight) Branch hours as needed for Nausea and Vomiting (N/V). ondansetron 2021-0 Yes [id number] 4mg Take 1 Univers (ZOFRAN 9-09 tablet by ity of ODT) 4 mg 00:00: mouth [place] disintegrat 00 every 8 Medic al ing tablet (eight) Branch hours as needed for Nausea and Vomiting (N/V). levothyroxi 2020-0 Yes 75ug Take 75 Uni vers ne 7-24 mcg by ity of (SYNTHROID, 09:58: mouth [place] LEVOTHROID) 25 daily. 75 mcg [place] tablet [facility] amLODIPine- 2020-0 Yes Take by Uni vers benazepril 7-24 mouth at ity o f (LOTREL) 10 09:58: bedtime. [place] mg-40 mg 25 MD per capsule [facility] rivaroxaban 2020-0 Yes 10mg Take 10 mg Univers (XARELTO) 7-24 by mouth ity of 10 mg 09:58: daily. [place] tablet 25 MD [facility] [place] metFORMIN 2020-0 Yes 1000mg Take 1,000 Univers (GLUCOPHAGE 7-24 mg by ity of ) 500 mg 09:58: mouth 2 [place] tablet 25 (two) MD times a [place] day with n meals. [facility] sitaGLIPtin 2020-0 Yes Take by Uni vers -metFORMIN 7-24 mouth 2 ity of (JANUMET) 09:58: (two) [place] 50 mg-1,000 25 times a MD mg per day with [place] tablet meals. n [facility] levothyroxi 2020-0 Yes 75ug Take 75 Uni vers ne 7-24 mcg by ity of (SYNTHROID, 09:58: mouth [place] LEVOTHROID) 25 daily. 75 mcg [place] tablet n [facility] amLODIPine- 2020-0 Yes Take by Uni vers benazepril 7-24 mouth at ity o f (LOTREL) 10 09:58: bedtime. [place] mg-40 mg [facility] rivaroxaban 2020-0 Yes 10mg Take 10 mg Univers (XARELTO) 7-24 by mouth ity of 10 mg 09:58: daily. [place] tablet 25 MD [facility] [place] metFORMIN 2020-0 Yes 1000mg Take 1,000 Univers (GLUCOPHAGE 7-24 mg by ity of ) 500 mg 09:58: mouth 2 [place] tablet 25 (two) MD times a [place] day with n meals. [facility] sitaGLIPtin 2020-0 Yes Take by Uni vers -metFORMIN 7-24 mouth 2 ity of (JANUMET) 09:58: (two) [place] 50 mg-1,000 25 times a MD mg per day with [place] tablet meals. n [facility] levothyroxi 2020-0 Yes 75ug Take 75 Uni vers ne 7-24 mcg by ity of (SYNTHROID, 09:58: mouth [place] LEVOTHROID) 25 daily. MD 75 mcg [place] tablet n [facility] amLODIPine- 2020-0 Yes Take by Uni vers benazepril 7-24 mouth at ity o f (LOTREL) 10 09:58: bedtime. [place] mg-40 mg 25 MD per capsule [facility] rivaroxaban Yes 10mg Take 10 mg Univers (XARELTO) 7-24 by mouth ity of 10 mg 09:58: daily. [place] tablet 25 [place] n [facility] metFORMIN 0 Yes 1000mg Take 1,000 Univers (GLUCOPHAGE 7-24 mg by ity of ) 500 mg 09:58: mouth 2 [place] tablet 25 (two) MD times a [place] day with n meals. [facility] sitaGLIPtin 0 Yes Take by Uni vers -metFORMIN 7-24 mouth 2 ity of (JANUMET) 09:58: (two) [place] 50 mg-1,000 25 times a MD mg per day with [place] tablet meals. n [facility] atorvastati 2018-05 No Notes: [place] zana n 2-09 (Same as: l 03:00: Lipitor) atorvastati 2018-05 No Notes: [place] zana n 2-09 (Same as: l 03:00: Lipitor) atorvastati 2018-05 No Notes: [place] zana n 2-09 (Same as: l 03:00: Lipitor) atorvastati 2018-05 No Notes: [place] zana n 2-09 (Same as: l 03:00: Lipitor) atorvastati 2018-05 No Notes: [place] zana n 2-09 (Same as: l 03:00: Lipitor) atorvastati 2018-05 Yes 20 mg = 1 M emoria n 20 MG 2-08 tab, PO, l Oral Tablet 22:04: Bedtime, # [place] [Lipitor] 00 30 tab, 0 Refill(s), Pharmacy: [id number] Metformin 2018-05 Yes 1,000 mg = Me moria hydrochlori 2-08 1 tab, PO, l de 1000 MG 22:04: BID-Meals, [place] Oral Tablet 00 # 30 tab, 0 Refill(s), Pharmacy: [id number] canaglifloz 2018-05 Yes 100 mg = 1 Memoria in 100 MG 2-08 tab, PO, l Oral Tablet 22:04: Before [place] filemon [Invokana] 00 Breakfast, # 30 tab, 2 Refill(s), Pharmacy: [id number] atorvastati 2018-05 Yes 20 mg = 1 M emoria n 20 MG 2-08 tab, PO, l Oral Tablet 22:04: Bedtime, # [place] [Lipitor] 00 30 tab, 0 Refill(s), Pharmacy: [id number] Metformin 2018-05 Yes 1,000 mg = Me moria hydrochlori 2-08 1 tab, PO, l de 1000 MG 22:04: BID-Meals, [place] Oral Tablet 00 # 30 tab, 0 Refill(s), Pharmacy: [id number] canaglifloz 2018-05 Yes 100 mg = 1 Memoria in 100 MG 2-08 tab, PO, l Oral Tablet 22:04: Before [place] file[place] [Invokana] 00 Breakfast, # 30 tab, 2 Refill(s), Pharmacy: [id number] atorvastati 2018-05 Yes 20 mg = 1 M emoria n 20 MG 2-08 tab, PO, l Oral Tablet 22:04: Bedtime, # [place] [Lipitor] 00 30 tab, 0 Refill(s), Pharmacy: [id number] Metformin 2018-05 Yes 1,000 mg = Me moria hydrochlori 2-08 1 tab, PO, l de 1000 MG 22:04: BID-Meals, [place] Oral Tablet 00 # 30 tab, 0 Refill(s), Pharmacy: [id number] canaglifloz 2018-05 Yes 100 mg = 1 Memoria in 100 MG 2-08 tab, PO, l Oral Tablet 22:04: Before [place] file[place] [Invokana] 00 Breakfast, # 30 tab, 2 Refill(s), Pharmacy: [id number] atorvastati 2018-05 Yes 20 mg = 1 M emoria n 20 MG 2-08 tab, PO, l Oral Tablet 22:04: Bedtime, # [place] [Lipitor] 00 30 tab, 0 Refill(s), Pharmacy: [id number] Metformin 2018-05 Yes 1,000 mg = Me moria hydrochlori 2-08 1 tab, PO, l de 1000 MG 22:04: BID-Meals, [place] Oral Tablet 00 # 30 tab, 0 Refill(s), Pharmacy: [id number] canaglifloz 2018-05 Yes 100 mg = 1 Memoria in 100 MG 2-08 tab, PO, l Oral Tablet 22:04: Before [place] filemon [Invokana] 00 Breakfast, # 30 tab, 2 Refill(s), Pharmacy: [id number] atorvastati 2018-05 Yes 20 mg = 1 M emoria n 20 MG 2-08 tab, PO, l Oral Tablet 22:04: Bedtime, # [place] [Lipitor] 00 30 tab, 0 Refill(s), Pharmacy: [id number] Metformin 2018-05 Yes 1,000 mg = Me moria hydrochlori 2-08 1 tab, PO, l de 1000 MG 22:04: BID-Meals, [place] Oral Tablet 00 # 30 tab, 0 Refill(s), Pharmacy: [id number] canaglifloz 2018-05 Yes 100 mg = 1 Memoria in 100 MG 2-08 tab, PO, l Oral Tablet 22:04: Before [place] filemon [Invokana] 00 Breakfast, # 30 tab, 2 Refill(s), Pharmacy: [id number] pantoprazol 2018-05 No Notes: For Memoria e 2-08 IV push l 15:00: reconstitu te with 10 ml 0.9% sodium chloride and push over 2 minutes. (Same as: Protonix) Saline 2018-05 No Notes: [place] Flush 0.9% 2-08 (Same as: l 15:00: BD [place] 00 Posiflush) Insulin 2018-05 No Notes: Memoria Glargine 2-08 (Same as: l 15:00: Lantus) Do not hold insulin without contacting prescriber WASTE: F/P - Black; E - Municipal Trash Bin "single patient use only" Stable for 28 days at room temperatur e Expires in days from ____Date pantoprazol 2018-05 No Notes: For Memoria e 2-08 IV push l 15:00: reconstitu te with 10 ml 0.9% sodium chloride and push over 2 minutes. (Same as: Protonix) Saline 2018-05 No Notes: [place] Flush 0.9% 2-08 (Same as: l 15:00: BD [place] 00 Posiflush) Insulin 2018-05 No Notes: Memoria Glargine 2-08 (Same as: l 15:00: Lantus) Do [place] 00 not hold insulin without contacting prescriber WASTE: F/P - Black; E - Municipal Trash Bin "single patient use only" Stable for 28 days at room temperatur e Expires in days from ____Date pantoprazol 2018-05 No Notes: For Memoria e 2-08 IV push l 15:00: reconstitu [place] 00 te with 10 ml 0.9% sodium chloride and push over 2 minutes. (Same as: Protonix) Saline 2018-05 No Notes: [place] Flush 0.9% 2-08 (Same as: l 15:00: BD [place] 00 Posiflush) Insulin 2018-05 No Notes: Memoria Glargine 2-08 (Same as: l 15:00: Lantus) Do [place] 00 not hold insulin without contacting prescriber WASTE: F/P - Black; E - Municipal Trash Bin "single patient use only" Stable for 28 days at room temperatur e Expires in days from ____Date pantoprazol 2018-05 No Notes: For Memoria e 2-08 IV push l 15:00: reconstitu [place] 00 te with 10 ml 0.9% sodium chloride and push over 2 minutes. (Same as: Protonix) Saline 2018-05 No Notes: [place] Flush 0.9% 2-08 (Same as: l 15:00: BD [place] 00 Posiflush) Insulin 2018-05 No Notes: [place] Glargine 2-08 (Same as: l 15:00: Lantus) Do [place] 00 not hold insulin without contacting prescriber WASTE: F/P - Black; E - Municipal Trash Bin "single patient use only" Stable for 28 days at room temperatur e Expires in days from ____Date pantoprazol 2018-05 No Notes: For Memoria e [...] Notes: Memoria 2-08 porcine l 06:00: heparin [place] 00 heparin 2018-05 No Notes: [place] 2-08 porcine l 06:00: heparin [place] 00 heparin 2018-05 No Notes: Memoria 2-08 porcine l 06:00: heparin [place] 00 heparin 2018-05 No Notes: [place] 2-08 porcine l 06:00: heparin [place] 00 heparin 2018-05 No Notes: [place]oria 2-08 porcine l 06:00: heparin [place] 00 Aspirin 81 2018-05 No Notes: Do Me moria MG Enteric 2-08 not crush l Coated 05:16: or chew. [place] Tablet 00 (Same As: Ecotrin) Aspirin 81 2018-05 No Notes: Do [place] mor[place] MG Enteric 2-08 not crush l Coated 05:16: or chew. [place] Tablet 00 (Same As: Ecotrin) Aspirin 81 2018-05 No Notes: Do Me mor[place] MG Enteric 2-08 not crush l Coated 05:16: or chew. [place] Tablet 00 (Same As: Ecotrin) Aspirin 81 2018-05 No Notes: Do Me mor[place] MG Enteric 2-08 not crush l Coated 05:16: or chew. [place] Tablet 00 (Same As: Ecotrin) Aspirin 81 2018-05 No Notes: Do [place] MG Enteric 2-08 not crush l Coated 05:16: or chew. [place] Tablet 00 (Same As: Ecotrin) Dextrose 2018-05 No 12.5 gm, Memor ia 50% Syringe 2-08 25 mL, l (D50W) 05:07: Route: [place] 00 IVP, Drug Form: INJ, Dosing Weight 86.477, kg, PRN, PRN Blood Glucose Results, Start date: 05/04/19 23:07:00 [employer], Duration: 30 day, Stop date: 06/03/19 23:06:00 [employer]CH SERVICES MANAGER, 0 Glucagon 2019- No 1 mg, Memoria 2-08 Route: IM, l 05:07: Drug form: [place] 00 PDR/INJ, PRN, Dosing Weight 86.477, kg, PRN Blood Glucose Results, Start date: 05/04/19 23:07:00 [employer]CH SERVICES MANAGER, Duration: 30 day, Stop date: 06/03/19 23:06:00 BRANCH SERVICES MANAGER, 0 Insulin 2018- No Notes: Memoria Lispro 2-08 (Same as: l 05:07: Humalog) [place] 00 Roll in palms of hands gently; Do not shake vigorously . WASTE: F/P - Black; E - Municipal Trash Bin Stable for 28 days at room temperatur e. Expires in days from ____Date Dextrose 2018-05 No 12.5 gm, Memor ia 50% Syringe 2-08 25 mL, l (D50W) 05:07: Route: [place] 00 IVP, Drug Form: INJ, Dosing Weight 86.477, kg, PRN, PRN Blood Glucose Results, Start date: 05/04/19 23:07:00 [employer]ANCH SERVICES MANAGER, Duration: 30 day, Stop date: 06/03/19 23:06:00 BRANCH SERVICES MANAGER, 0 Glucagon 2019- No 1 mg, Memoria 2-08 Route: IM, l 05:07: Drug form: [place] 00 PDR/INJ, PRN, Dosing Weight 86.477, kg, PRN Blood Glucose Results, Start date: 05/04/19 23:07:00 BRANCH SERVICES MANAGER, Duration: 30 day, Stop date: 06/03/19 23:06:00 BRANCH SERVICES MANAGER, 0 Insulin 2018- No Notes: Memoria Lispro 2-08 (Same as: l 05:07: Humalog) [place] 00 Roll in palms of hands gently; Do not shake vigorously . WASTE: F/P - Black; E - Municipal Trash Bin Stable for 28 days at room temperatur e. Expires in days from ____Date Dextrose 2018- No 12.5 gm, Memor ia 50% Syringe 2-08 25 mL, l (D50W) 05:07: Route: [place] 00 IVP, Drug Form: INJ, Dosing Weight 86.477, kg, PRN, PRN Blood Glucose Results, Start date: 05/04/19 23:07:00 [employer]ANCH SERVICES MANAGER, Duration: 30 day, Stop date: 06/03/19 23:06:00 BRANCH SERVICES MANAGER, 0 Glucagon 2019- No 1 mg, Memoria 2-08 Route: IM, l 05:07: Drug form: [place] 00 PDR/INJ, PRN, Dosing Weight 86.477, kg, PRN Blood Glucose Results, Start date: 05/04/19 23:07:00 BRANCH SERVICES MANAGER, Duration: 30 day, Stop date: 06/03/19 23:06:00 BRANCH SERVICES MANAGER, 0 Insulin 2018- No Notes: Memoria Lispro 2-08 (Same as: l 05:07: Humalog) Roll in palms of hands gently; Do not shake vigorously . WASTE: F/P - Black; E - Municipal Trash Bin Stable for 28 days at room temperatur e. Expires in days from ____Date Dextrose 2018-05 No 12.5 gm, Memor ia 50% Syringe 2-08 25 mL, l (D50W) 05:07: Route: [place] 00 IVP, Drug Form: INJ, Dosing Weight 86.477, kg, PRN, PRN Blood Glucose Results, Start date: 05/04/19 23:07:00 BRANCH SERVICES MANAGER, Duration: 30 day, Stop date: 06/03/19 23:06:00 BRANCH SERVICES MANAGER, 0 Glucagon 2018- No 1 mg, Memoria 2-08 Route: IM, l 05:07: Drug form: [place] 00 PDR/INJ, PRN, Dosing Weight 86.477, kg, PRN Blood Glucose Results, Start date: 05/04/19 23:07:00 BRANCH SERVICES MANAGER, Duration: 30 day, Stop date: 06/03/19 23:06:00 BRANCH SERVICES MANAGER, 0 Insulin 2018-05 No Notes: Memoria Lispro 2-08 (Same as: l 05:07: Humalog) [place] 00 Roll in palms of hands gently; Do not shake vigorously . WASTE: F/P - Black; E - Municipal Trash Bin Stable for 28 days at room temperatur e. Expires in days from ____Date Dextrose 2018-05 No 12.5 gm, Memor ia 50% Syringe 2-08 25 mL, l (D50W) 05:07: Route: [place] 00 IVP, Drug Form: INJ, Dosing Weight 86.477, kg, PRN, PRN Blood Glucose Results, Start date: 05/04/19 23:07:00 BRANCH SERVICES MANAGER, Duration: 30 day, Stop date: 06/03/19 23:06:00 BRANCH SERVICES MANAGER, 0 Glucagon 2018-05 No 1 mg, Memoria 2-08 Route: IM, l 05:07: Drug form: [place] 00 PDR/INJ, PRN, Dosing Weight 86.477, kg, PRN Blood Glucose Results, Start date: 05/04/19 23:07:00 BRANCH SERVICES MANAGER, Duration: 30 day, Stop date: 06/03/19 23:06:00 BRANCH SERVICES MANAGER, 0 Insulin 2018-05 No Notes: Memoria Lispro 2-08 (Same as: l 05:07: Humalog) [place] 00 Roll in palms of hands gently; Do not shake vigorously . WASTE: F/P - Black; E - Municipal Trash Bin Stable for 28 days at room temperatur e. Expires in days from ____Date Aspirin 2018-05 No Notes: Memoria 2-08 Take with l 05:05: food. Aspirin 2018-05 No Notes: [place] 2-08 Take with l 05:05: food. Aspirin 2018-05 No Notes: [place] 2-08 Take with l 05:05: food. Aspirin 2018-05 No Notes: Memoria 2-08 Take with l 05:05: food. Aspirin 2018-05 No Notes: [place] 2-08 Take with l 05:05: food. [place] 00 Aspirin 81 2018-05 No Notes: Do Me moria MG Enteric 2-08 not crush l Coated 05:00: or chew. [place] Tablet 00 (Same As: Ecotrin) Aspirin 81 2018-05 No Notes: Do Me moria MG Enteric 2-08 not crush l Coated 05:00: or chew. [place] Tablet 00 (Same As: Ecotrin) Aspirin 81 2018-05 No Notes: Do Me mor[place] MG Enteric 2-08 not crush l Coated 05:00: or chew. [place] Tablet 00 (Same As: Ecotrin) Aspirin 81 2018-05 No Notes: Do Me moria MG Enteric 2-08 not crush l Coated 05:00: or chew. [place] Tablet 00 (Same As: Ecotrin) Aspirin 81 2018-05 No Notes: Do Me moria MG Enteric 2-08 not crush l Coated 05:00: or chew. [place] Tablet 00 (Same As: Ecotrin) Acetaminoph 2018-05 No Notes: Do M emoria en 2-08 not exceed l 04:57: 4 gm/day. Vik 00 (Same as: Tylenol) Saline 2018-05 No Notes: Memoria Flush 0.9% 2-08 (Same as: l 04:57: BD [place] 00 Posiflush) Acetaminoph 2018-05 No Notes: Do M emoria en 2-08 not exceed l 04:57: 4 gm/day. [place] 00 (Same as: Tylenol) Saline 2018-05 No Notes: Memoria Flush 0.9% 2-08 (Same as: l 04:57: BD [place] 00 Posiflush) Acetaminoph 2018-05 No Notes: Do M emoria en 2-08 not exceed l 04:57: 4 gm/day. [place] 00 (Same as: Tylenol) Saline 2018-05 No Notes: Memoria Flush 0.9% 2-08 (Same as: l 04:57: BD [place] 00 Posiflush) Acetaminoph 2018-05 No Notes: Do M emoria en 2-08 not exceed l 04:57: 4 gm/day. [place] 00 (Same as: Tylenol) Saline 2018-05 No Notes: Memoria Flush 0.9% 2-08 (Same as: l 04:57: BD [place] 00 Posiflush) Acetaminoph 2018-05 No Notes: Do M emoria en 2-08 not exceed l 04:57: 4 gm/day. [place] 00 (Same as: Tylenol) Saline 2018-05 No Notes: Memoria Flush 0.9% 2-08 (Same as: l 04:57: BD [place] 00 Posiflush) influenza 2018-05 No Notes: Memori a virus 2-08 (Same as: l vaccine, 04:16: Fluzone Pradip n inactivated 55 High-Dose) high-dose For 65 preservativ years of e-free age of intramuscul older (0.5 ar ml IM) suspension Shake well before use influenza 2018-05 No Notes: Memori a virus 2-08 (Same as: l vaccine, 04:16: Fluzone Pradip n inactivated 55 High-Dose) high-dose For 65 preservativ years of e-free age of intramuscul older (0.5 ar ml IM) suspension Shake well before use influenza 2018-05 No Notes: Memori a virus 2-08 (Same as: l vaccine, 04:16: Fluzone Pradip n inactivated 55 High-Dose) high-dose For 65 preservativ years of e-free age of intramuscul older (0.5 ar ml IM) suspension Shake well before use influenza 2018-05 No Notes: Memori a virus 2-08 (Same as: l vaccine, 04:16: Fluzone Pradip n inactivated 55 High-Dose) high-dose For 65 preservativ years of e-free age of intramuscul older (0.5 ar ml IM) suspension Shake well before use influenza 2018-05 No Notes: Memori a virus [...] Memoria 2-08 microgram, l 04:15: PO, Daily, [place] 00 0 Refill(s) Amlodipine 2018-05 Yes 1 cap, PO, M emoria 10 MG / 2-08 Daily, 0 l Benazepril 04:15: Refill(s) He rmann hydrochlori 00 de 40 MG Oral Capsule Potassium 2018-05 Yes 10 mEq, Memor ia Chloride 2-08 PO, Daily, l 04:15: 0 Refill(s) candesartan 2018-05 No 2 mg, PO, M emoria 2-08 Bedtime, 0 l 04:15: Refill(s) Metformin 2018-05 No 500 mg, Memor ia 2-08 PO, 0 l 04:15: Refill(s) rivaroxaban 2018-05 Yes 20 mg = 1 M emoria 20 MG Oral 2-08 tab, PO, l Tablet 04:15: QPM, # 30 Pradip n [Xarelto] 00 tab, 3 Refill(s) Thyroxine 2018-05 Yes 75 Memoria 2-08 microgram, l 04:15: PO, Daily, [place] 00 0 Refill(s) Amlodipine 2018-05 Yes 1 cap, PO, M emoria 10 MG / 2-08 Daily, 0 l Benazepril 04:15: Refill(s) Marvin hydrochlori de 40 MG Oral Capsule Potassium 2018-05 Yes 10 mEq, Memor ia Chloride 2-08 PO, Daily, l 04:15: 0 Refill(s) candesartan 2018-05 No 2 mg, PO, M emoria 2-08 Bedtime, 0 l 04:15: Refill(s) Metformin 2018-05 No 500 mg, Memor ia 2-08 PO, 0 l 04:15: Refill(s) rivaroxaban 2018-05 Yes 20 mg = 1 [...] Chloride 2-08 PO, Daily, l 04:15: 0 Refill(s) candesartan 2018-05 No 2 mg, PO, M emoria 2-08 Bedtime, 0 l 04:15: Refill(s) Metformin 2018-05 No 500 mg, Memor ia 2-08 PO, 0 l 04:15: Refill(s) rivaroxaban 2018-05 Yes 20 mg = 1 M emoria 20 MG Oral 2-08 tab, PO, l Tablet 04:15: QPM, # 30 Pradip n [Xarelto] 00 tab, 3 Refill(s) Thyroxine 2018-05 Yes 75 Memoria 2-08 microgram, l 04:15: PO, Daily, [place] 00 0 Refill(s) Amlodipine 2018-05 Yes 1 cap, PO, M emoria 10 MG / 2-08 Daily, 0 l Benazepril 04:15: Refill(s) Marvin rmann hydrochlori 00 de 40 MG Oral Capsule Potassium 2018-05 Yes 10 mEq, Memor ia Chloride 2-08 PO, Daily, l 04:15: 0 Refill(s) candesartan 2018-05 No 2 mg, PO, M emoria 2-08 Bedtime, 0 l 04:15: Refill(s) Metformin 2018-05 No 500 mg, Memor ia 2-08 PO, 0 l 04:15: Refill(s) rivaroxaban 2018-05 Yes 20 mg = 1 [...] Chloride 2-08 PO, Daily, l 04:15: 0 [place] 00 Refill(s) candesartan 2018-05 No 2 mg, PO, M emoria 2-08 Bedtime, 0 l 04:15: Refill(s) [place] Metformin 2018-05 No 500 mg, Memor ia 2-08 PO, 0 l 04:15: Refill(s) [place] potassium Yes TAKE 1 Univer s chloride 4-22 TABLET BY ity of (K-AUTUMN,KLOR 00:00: MOUTH [facility]) 10 00 EVERY DAY MD mEq tablet [facility] potassium Yes TAKE 1 Univer s chloride 4-22 TABLET BY ity of (K-AUTUMNKLOR 00:00: MOUTH [place] -[facility] M) 10 00 EVERY DAY MD mEq tablet [facility] potassium Yes TAKE 1 Univer s chloride 4-22 TABLET BY ity of (K-AUTUMNKLOR 00:00: MOUTH [place] [facility]) 10 00 EVERY DAY mEq tablet [facility] candesartan Yes take 1 Univ ers (ATACAND) 4 2-22 tablet ity of mg tablet 00:00[place] 00 [facility] candesartan Yes take 1 Univ ers (ATACAND) 4 2-22 tablet ity of mg tablet 00:[place]: [place] 00 [facility] candesartan Yes take 1 Univ ers (ATACAND) 4 2-22 tablet ity of mg tablet 00:00: [place] 00 [facility] Immunizations Ordered Filled Immunization Date Status Comments [facility] e Immunization Name Name Influenza, 2018-02-28 Completed [facility] 00:[facility]:00 [place] [facility] Influenza, 2018-02-28 Completed [facility] 00:00:00 [place] [facility] Influenza, 2018-02-28 Completed [facility] 00:00:00 [place] [facility] pneumococcal 2013-10-28 Completed [facility] 23-valent vaccine 01:27:00 pneumococcal 2013-10-28 Completed [facility] 23-valent vaccine 01:27:00 pneumococcal 2013-10-28 Completed [facility] 23-valent vaccine 01:27:00 pneumococcal 2013-10-28 Completed [facility] 23-valent vaccine 01:27:00 pneumococcal 2013-10-28 Completed [facility] 23-valent vaccine 01:27:00 Vital Signs Vital Name Observation Time Observation Value Comments Source Systolic blood 2022-05-06 17:36:00 115 mm[Hg] [facility] [place] [facility] Diastolic blood 2022-05-06 17:36:00 65 mm[Hg] [facility] [place] [facility] Heart rate 2022-05-06 17:36:00 53 /min [facility] [place] [facility] Respiratory rate 2022-05-06 17:36:00 15 /min [facility] [place] [facility] Oxygen saturation in 2022-05-06 17:36:00 99 /min University of Arterial blood by [place] [employer] [facility] Pulse oximetry Branch Body temperature 2022-05-06 14:30:00 36.11 Belen [facility] [place] [facility] Body weight 2022-05-06 10:09:00 78.472 kg [facility] [place] [facility] BMI 2022-05-06 10:09:00 21.62 kg/m2 [facility] [place] [facility] Body height 2022-05-02 16:15:00 190.5 cm [facility] [place] [facility] Systolic blood 2022-04-30 21:41:00 132 mm[Hg] [facility] [place] [facility] Diastolic blood 2022-04-30 21:41:00 62 mm[Hg] [facility] [place] [facility] Heart rate 2022-04-30 21:41:00 61 /min [facility] [place] [facility] Body temperature 2022-04-30 21:41:00 36.11 Belen [facility] [place] [facility] Respiratory rate 2022-04-30 21:41:00 16 /min [facility] [place] [facility] Oxygen saturation in 2022-04-30 21:41:00 96 /min University of Arterial blood by [employer] Pulse oximetry Branch Body weight 2022-04-26 20:12:00 83.915 kg [facility] [place] [facility] Systolic blood 2022-04-28 16:32:00 161 mm[Hg] [facility] [place] [facility] Diastolic blood 2022-04-28 16:32:00 90 mm[Hg] [facility] [place] [facility] Heart rate 2022-04-28 16:32:00 86 /min [facility] [place] [facility] Body temperature 2022-04-28 16:32:00 36.39 Belen [facility] [place] [facility] Respiratory rate 2022-04-28 16:32:00 16 /min [facility] [place] [facility] Oxygen saturation in 2022-04-28 16:32:00 97 /min University of Arterial blood by [facility] Pulse oximetry Branch Body weight 2022-04-26 20:12:00 83.915 kg [facility]i ty [facility] Systolic blood 2021-02-04 21:00:00 121 mm[Hg] [facility] [place] [facility] Diastolic blood 2021-02-04 21:00:00 69 mm[Hg] [facility]ive [facility] [place] [facility] Heart rate 2021-02-04 21:00:00 68 /min [facility] [place] [facility] Respiratory rate 2021-02-04 21:00:00 20 /min [facility] [place] [facility] Oxygen saturation in 2021-02-04 21:00:00 98 /min University of Arterial blood by [facility] Pulse oximetry Branch Body temperature 2021-02-04 18:30:00 36.44 Belen [facility] ersity [facility] [place] [facility] Body weight 2021-02-04 18:30:00 90.719 kg [facility] [place] [facility] WEIGHT 2019-12-20 09:44:00 87.9 kg Temperature Oral (F) 2019-05-05 18:10:00 97.2 F [facility] [place] Heart Rate 2019-05-05 18:10:00 [facility] [place] Respitory Rate 2019-05-05 18:10:00 Memori al Vik Systolic (mm Hg) 2019-05-05 18:10:00 Chema moise [place] Diastolic (mm Hg) 2019-05-05 18:10:00 Mem orial [place] Temperature Oral (F) 2019-05-05 14:15:00 97.3 F [facility] Vik Heart Rate 2019-05-05 14:15:00 [facility] [place] Respitory Rate 2019-05-05 14:15:00 Memori al [place] Systolic (mm Hg) 2019-05-05 14:15:00 Chema zanal [place] Diastolic (mm Hg) 2019-05-05 14:15:00 Palomo orial Vik Temperature Oral (F) 2019-05-05 10:24:00 97.3 F Katherine Chery Heart Rate 2019-05-05 10:24:00 Katherine Fayeann Respitory Rate 2019-05-05 10:24:00 Kelly al [place] Systolic (mm Hg) 2019-05-05 10:24:00 Chema zanal [place] Diastolic (mm Hg) 2019-05-05 10:24:00 Palomo Fayeann Height 2019-05-05 04:10:00 187.96 cm [facility] Vik Weight 2019-05-05 04:10:00 [facility] Vik BMI Calculated 2019-05-05 04:10:00 Kelly Ochoa Procedures Procedure Date / Time Performing Clinician Source Performed POCT GLUCOSE (AUTOMATED) 2022-05-06 22:45:[address] [facility] [place] [place] COVID-19 (ID NOW RAPID 2022-05-06 18:12:00 Antonia Jason [facility] TESTING) [facility] POCT GLUCOSE (AUTOMATED) 2022-05-06 17:50:00 Jerry Tam [facility] POCT GLUCOSE (AUTOMATED) 2022-05-06 14:03:[address] [facility] [place] [place] BASIC METABOLIC PANEL 2022-05-06 09:56:00 Jerry Tam [facility] (NA, K, CL, CO2, Medical Branch GLUCOSE, BUN, CREATININE, CA) POCT GLUCOSE (AUTOMATED) 2022-05-06 02:37:[address] [facility] [place] [place] POCT GLUCOSE (AUTOMATED) 2022-05-05 22:33:[address] [facility] [place] [place] POCT GLUCOSE (AUTOMATED) 2022-05-05 17:55:[address] [facility] [place] [place] POCT GLUCOSE (AUTOMATED) 2022-05-05 14:11:[address] [facility] [place] [place] POCT GLUCOSE (AUTOMATED) 2022-05-05 02:01:[address] [facility] [place] [place] POCT GLUCOSE (AUTOMATED) 2022-05-04 22:41:00 Jerry Tam [facility] VANCOMYCIN TROUGH 2022-05-04 21:50:00 Jerry Tam [facility] POCT GLUCOSE (AUTOMATED) 2022-05-04 17:42:00 Jerry Tam [facility] POCT GLUCOSE (AUTOMATED) 2022-05-04 13:30:00 Jerry Tam [facility] BASIC METABOLIC PANEL 2022-05-04 11:19:00 [facility] ([facility], K, CL, CO2, Medical Branch GLUCOSE, BUN, CREATININE, CA) CBC WITH DIFF 2022-05-04 11:19:00 [facility]SE ([facility]OMATED) 2022-05-04 01:58:00 Jerry Tam [facility] POCT GLUCOSE (AUTOMATED) 2022-05-03 22:52:00 Jerry Tam [facility] POCT GLUCOSE (AUTOMATED) 2022-05-03 18:00:00 Jerry Tam [facility] POCT GLUCOSE (AUTOMATED) 2022-05-03 17:13:00 Jerry Tam [facility] POCT GLUCOSE (AUTOMATED) 2022-05-03 13:44:00 Jerry Tam [facility] MAGNESIUM 2022-05-03 09:41:00 Jerry Tam Crum o [facility] BASIC METABOLIC PANEL 2022-05-03 09:41:00 Jerry Tam [facility] (NA, K, CL, CO2, Medical Branch GLUCOSE, BUN, CREATININE, CA) CBC WITH DIFF 2022-05-03 09:41:00 Jerry Tam o [facility] POCT GLUCOSE (AUTOMATED) 2022-05-03 04:14:00 Jerry Tam [facility] POCT GLUCOSE (AUTOMATED) 2022-05-02 22:32:00 Jerry Tam [facility] BLOOD CULTURE SCREEN 2022-05-02 19:38:00 Jerry Tam [facility] BLOOD CULTURE SCREEN 2022-05-02 19:33:00 Jerry Tam [facility] GLYCOSYLATED HEMOGLOBIN 2022-05-02 19:32:00 Jerry Tam [facility] (A1C) [facility] POCT GLUCOSE (AUTOMATED) 2022-05-02 17:23:00 Jerry Tam [facility] XR CHEST 1 VW 2022-05-02 15:27:56 Singer [facility] URINALYSIS 2022-05-02 14:20:[address] [facility] CT TRAUMA HEAD WO 2022-05-02 14:03:10 Singer [facility] CONTRAST [facility] CT TRAUMA CERVICAL SPINE 2022-05-02 14:03:10 Singer [facility] WO CONTRAST [facility] XR PELVIS <3 VW 2022-05-02 14:02:27 Singer [facility] COMP. METABOLIC PANEL 2022-05-02 13:38:00 Dwayne Barnett [facility] ([id number]) Medical Branch ETHANOL 2022-05-02 13:38:00 Singer [facility] SEDIMENTATION RATE 2022-05-02 13:38:00 Jerry Tam [facility] CBC WITH DIFF 2022-05-02 13:38:00 Singer [facility] LACTIC ACID WHOLE BLOOD 2022-05-02 13:38:00 Singer [facility] POCT GLUCOSE (AUTOMATED) 2022-04-30 23:04:[address] [facility] [place] POCT GLUCOSE (AUTOMATED) 2022-04-30 17:40:[address] [facility] [place] POCT GLUCOSE (AUTOMATED) 2022-04-30 14:12:[address] [facility] [place] [place] MAGNESIUM 2022-04-30 12:28:[address] [facility] BASIC METABOLIC PANEL 2022-04-30 12:28:00 Poonam Harris [facility] (NA, K, CL, CO2, Medical Branch GLUCOSE, BUN, CREATININE, CA) CBC WITH DIFF 2022-04-30 12:28:[address] [facility] POCT GLUCOSE (AUTOMATED) 2022-04-30 02:42:00 Yocasta Jara [facility] POCT GLUCOSE (AUTOMATED) 2022-04-29 22:37:00 Marek, Yocasta [facility] POCT GLUCOSE (AUTOMATED) 2022-04-29 22:37:00 Marek, Yocasta [facility] POCT GLUCOSE (AUTOMATED) 2022-04-29 17:44:00 Yocasta Jara [facility] POCT GLUCOSE (AUTOMATED) 2022-04-29 17:44:00 Marek, Yocasta [facility] POCT GLUCOSE (AUTOMATED) 2022-04-29 13:51:00 Marek, Yocasta [facility] POCT GLUCOSE (AUTOMATED) 2022-04-29 13:51:00 Yocasta Jara [facility] MAGNESIUM 2022-04-29 11:36:00 [place], [facility] BASIC METABOLIC PANEL 2022-04-29 11:36:00 [place], [facility] [place] (NA, K, CL, CO2, Medical Branch GLUCOSE, BUN, CREATININE, CA) CBC WITH DIFF 2022-04-29 11:36:00 [place], [facility] MAGNESIUM 2022-04-29 11:36:00 [place], [facility] BASIC METABOLIC PANEL 2022-04-29 11:36:00 [place], [facility] [place] (NA, K, CL, CO2, Medical Branch GLUCOSE, BUN, CREATININE, CA) CBC WITH DIFF 2022-04-29 11:36:00 [place], [facility] POCT GLUCOSE (AUTOMATED) 2022-04-29 02:40:00 Yocasta Jara [facility] POCT GLUCOSE (AUTOMATED) 2022-04-29 02:40:00 Yocasta Jara [facility] POCT GLUCOSE (AUTOMATED) 2022-04-28 22:32:00 Yocasta Jara [facility] POCT GLUCOSE (AUTOMATED) 2022-04-28 22:32:00 Yocasta Jara [facility] XR FOOT 3+ VW LEFT 2022-04-28 21:28:00 Ara Altman [facility] XR FOOT 3+ VW LEFT 2022-04-28 21:28:00 Ara Altman [facility] FUNGUS (ROUTINE) CULTURE 2022-04-28 19:15:00 Ara Altman [facility] TISSUE 2022-04-28 19:15:00 Anupama [facility] CULTURE(AEROBIC/ANAEROBI [facility] [place] C) FUNGUS (ROUTINE) CULTURE 2022-04-28 19:15:00 Ara Altman [facility] TISSUE 2022-04-28 19:15:00 Anupama [facility] CULTURE(AEROBIC/ANAEROBI [facility] [place] [facility]) FUNGUS (ROUTINE) CULTURE 2022-04-28 19:13:00 Ara Altman [facility] TISSUE 2022-04-28 19:13:00 Anupama [facility] CULTURE(AEROBIC/ANAEROBI [facility] [place] [facility]) FUNGUS (ROUTINE) CULTURE 2022-04-28 19:13:00 Ara Altman [facility] TISSUE 2022-04-28 19:13:00 Anupama [facility] CULTURE(AEROBIC/ANAEROBI [facility] [place] [facility]) FUNGUS (ROUTINE) CULTURE 2022-04-28 19:10:00 Ara Altman [facility] TISSUE 2022-04-28 19:10:00 Anupama [facility] CULTURE(AEROBIC/ANAEROBI [facility] [place] [facility]) FUNGUS (ROUTINE) CULTURE 2022-04-28 19:10:00 Ara Altman [facility] TISSUE 2022-04-28 19:10:00 Anupama [facility] CULTURE(AEROBIC/ANAEROBI [facility] [place] [facility]) TOE AMPUTATION 2022-04-28 18:22:00 Anupama [facility] TOE AMPUTATION 2022-04-28 18:22:00 Anupama [facility] POCT GLUCOSE (AUTOMATED) 2022-04-28 14:33:00 Antonia Griffiths [facility] POCT GLUCOSE (AUTOMATED) 2022-04-28 14:33:00 Antonia Griffiths [facility] MAGNESIUM 2022-04-28 10:59:00 Mary [facility] BASIC METABOLIC PANEL 2022-04-28 10:59:00 Mary, [facility] (NA, K, CL, CO2, Medical Branch GLUCOSE, BUN, CREATININE, CA) CBC WITH DIFF 2022-04-28 10:59:00 Mary [facility] MAGNESIUM 2022-04-28 10:59:00 Mary, [facility] BASIC METABOLIC PANEL 2022-04-28 10:59:00 Mary, [facility] (NA, K, CL, CO2, Medical Branch GLUCOSE, BUN, CREATININE, CA) CBC WITH DIFF 2022-04-28 10:59:00 Mary [facility] MR FOOT LEFT W WO 2022-04-28 09:58:25 Anshul [facility] CONTRAST [facility] MR STROKE BRAIN WO 2022-04-28 09:58:[facility] MR FOOT LEFT W WO 2022-04-28 09:58:25 [facility] MR STROKE BRAIN WO 2022-04-28 09:58:25 [facility] POCT GLUCOSE (AUTOMATED) 2022-04-28 03:52:00 Antonia Griffiths [facility] POCT GLUCOSE (AUTOMATED) 2022-04-28 03:52:00 Antonia Griffiths [facility] POCT GLUCOSE (AUTOMATED) 2022-04-27 23:31:00 Antonia Griffiths [facility] POCT GLUCOSE (AUTOMATED) 2022-04-27 23:31:00 Antonia Griffiths [facility] POCT GLUCOSE (AUTOMATED) 2022-04-27 18:34:00 Antonia Griffiths [facility] POCT GLUCOSE (AUTOMATED) 2022-04-27 18:34:00 Antonia Griffiths [facility] LOWER EXTREMITY ARTERIAL 2022-04-27 18:01:18 Luciano Landers [facility] DUPLEX BILATERAL - BY [facility] VASCULAR LAB LILIANA MULTI LEVEL - BY 2022-04-27 18:00:51 Luciano Landers [facility] VASCULAR LAB Medical Branch TRANSTHORACIC ECHO (TTE) 2022-04-27 16:20:00 Luciano Landers [facility] TRANSTHORACIC ECHO (TTE) 2022-04-27 16:20:00 Luciano Landers [facility] POCT GLUCOSE (AUTOMATED) 2022-04-27 14:22:[address] [facility] [place] POCT GLUCOSE (AUTOMATED) 2022-04-27 14:22:[address] [facility] [place] EXTRA TUBE URINE 2022-04-27 07:15:[address] [facility] EXTRA TUBE URINE CULTURE 2022-04-27 07:15:[address] [facility] [place] EXTRA TUBE URINE 2022-04-27 07:15:[address] [facility] EXTRA TUBE URINE CULTURE 2022-04-27 07:15:[address] [facility] [place] BLOOD CULTURE SCREEN 2022-04-27 07:09:00 Luciano Landers [facility] PHOSPHORUS 2022-04-27 07:09:00 Anshul [facility] MAGNESIUM 2022-04-27 07:09:00 Anshul [facility] C-REACTIVE PROTEIN 2022-04-27 07:09:00 [facility] 2022-04-27 07:09:00 Anshul [facility] FREE T4 2022-04-27 07:09:00 Anshul [facility] THYROID STIMULATING 2022-04-27 07:09:00 [facility] BASIC METABOLIC PANEL 2022-04-27 07:09:00 Luciano Landers [facility] (NA, K, CL, CO2, Medical Branch GLUCOSE, BUN, CREATININE, CA) LIPID PANEL 2022-04-27 07:09:00 Anshul [facility] ([id number])(TOTAL Medical Branch CHOLESTEROL, TRIGLYCERIDES, HDL) SEDIMENTATION RATE 2022-04-27 07:09:00 [facility] WITH [facility]FF 2022-04-27 07:09:00 Anshul [facility] PROTHROMBIN TIME / INR 2022-04-27 07:09:00 [facility] 2022-04-27 07:09:00 [facility]ul [facility] BLO[facility] C[facility]URE SCREEN 2022-04-27 07:09:00 Anshul [facility] PHOSPHORUS 2022-04-27 07:09:00 Anshul [facility] MAGNESIUM 2022-04-27 07:09:00 Anshul [facility] ELECTROPHORESIS, SERUM 2022-04-27 07:09:00 Luciano Landers [facility] C-REACTIVE PROTEIN 2022-04-27 07:09:00 Anshul [facility] TROPONIN I 2022-04-27 07:09:00 Anshul [facility] FREE T4 2022-04-27 07:09:00 Anshul [facility] THYROID STIMULATING 2022-04-27 07:09:00 Anshul Luciano [facility] HORMONE [facility] BASIC METABOLIC PANEL 2022-04-27 07:09:00 Luciano Landers [facility] (NA, K, CL, CO2, Medical Branch GLUCOSE, BUN, CREATININE, CA) LIPID PANEL 2022-04-27 07:09:00 Anshul [facility] ([id number])(TOTAL Medical Branch CHOLESTEROL, TRIGLYCERIDES, HDL) SEDIMENTATION RATE 2022-04-27 07:09:00 [facility] WITH DIFF 2022-04-27 07:09:00 Anshul [facility] PROTHROMBIN TIME / INR 2022-04-27 07:09:00 Luciano Landers [facility] ACTIVATED PARTIAL 2022-04-27 07:09:00 Anshul [facility] POCT GLUCOSE (AUTOMATED) 2022-04-27 06:36:00 Antonia Griffiths [facility] POCT GLUCOSE (AUTOMATED) 2022-04-27 06:36:00 Antonia Griffiths [facility] XR CHEST 1 VW 2022-04-27 01:38:07 Antonia Griffiths [facility] XR CHEST 1 VW 2022-04-27 01:38:07 Antonia Griffiths [facility] CT HEAD WO CONTRAST 2022-04-27 01:30:[address] [facility] CT HEAD WO CONTRAST 2022-04-27 01:30:[address] [facility] URINALYSIS 2022-04-26 22:41:00 Antonia Griffiths [facility] URINE CULTURE 2022-04-26 22:41:00 Antonia Griffiths [facility] URINALYSIS 2022-04-26 22:41:00 Antonia Griffiths [facility] URINE CULTURE 2022-04-26 22:41:00 Antonia Griffiths [facility] XR TOES 2 VW LEFT 2022-04-26 22:38:00 Antonia Griffiths [facility] XR TOES 2 VW LEFT 2022-04-26 22:38:00 Antonia Griffiths [facility] TROPONIN I 2022-04-26 22:17:00 Anshul [facility] COMP. METABOLIC PANEL 2022-04-26 22:17:00 Antonia Griffiths [facility] ([id number]) [facility] CBC WITH DIFF 2022-04-26 22:17:00 Antonia Griffiths [facility] GLYCOSYLATED HEMOGLOBIN 2022-04-26 22:17:00 [facility] TROPONIN I 2022-04-26 22:17:00 Anshul [facility] COMP. METABOLIC PANEL 2022-04-26 22:17:00 Antonia Griffiths [facility] ([id number]) Medical Branch CBC WITH DIFF 2022-04-26 22:17:00 Antonia Griffiths [facility] GLYCOSYLATED HEMOGLOBIN 2022-04-26 22:17:00 Luciano Landers [facility] (A1C) Medical Branch CONSENT/REFUSAL FOR 2022-04-26 20:07:37 Doctor Unassigned, No [facility] [place] DI[facility]NOS[facility] TREATMENT Name Medical Branch CONSENT/REFUSAL FOR 2022-04-26 20:07:37 Doctor Unassigned, No [facility] [place] DIAGNOSIS AND TREATMENT Name Medical Branch HOSPITAL ADMISSION 2022-04-26 06:01:00 Doctor Unassigned, No [facility] [place] [facility] ADMISSION 2022-04-26 06:01:00 Doctor Unassigned, No [facility] Medical Branch URINALYSIS 2021-02-04 19:29:00 Antonia Griffiths [facility] COMP. METABOLIC PANEL 2021-02-04 19:28:00 Antonia Griffiths [facility] ([id number]) Medical Branch CBC WITH DIFF 2021-02-04 19:28:00 Antonia Griffiths [facility] Branch COVID-19 (ID NOW RAPID 2021-02-04 19:28:00 Antonia Griffiths [facility] TESTING) Medical Branch NOTICE OF PRIVACY 2021-02-04 18:23:58 Doctor Unassigned, No [facility] CONSENT/REFUSAL FOR 2021-02-04 18:23:46 Doctor Unassigned, No [facility] [place] DIAGNOSIS AND TREATMENT Name Medical Branch Cataract surgery [facility] Knee joint operation [facility] Plan of Care Planned Activity Planned Date Details Comments Source Future Scheduled 2022-04-13 COVID-19 Vaccination [facility] [place] Test 13:41:52 (#1) [code = COVID-19 And ersrachel Cancer Vaccination (#1)] Center Future Scheduled 2021-12-08 COVID-19 Vaccination [facility] [place] Test 12:57:58 (#1) [code = COVID-19 And erson Cancer Vaccination (#1)] Center Future Scheduled 2021-10-19 COVID-19 Vaccination [facility] [place] Test 03:53:12 (1) [code = COVID-19 MD Irving gupta Cancer Vaccination (1)] Center Encounters Start End Encounter Admission Attending Care Care Encounter Source Date/Time Date/Time Type Type Clinicians Facility Department ID 2021-11-26 Outpatient [facility] [id number] [place] 11:17:15 [id number] [facility] 2021-03-29 Emergency [facility] [id number] Univers 21:33:06 ity [facility] 2020-12-08 Outpatient [facility] [id number] [place] [facility]:50[facility] JOHN [facility] [id number] [place] 03:25:[facility]12[facility]16 Outpatient TAYRN CENTENO [id number] 07:06:56 Prisca sanchez 2022-05-09 2022-05-09 Transition OSMAR Narvaez 1.2.840.114 [id number] Univers 00:00:00 00:00:00 of Care Ni DUPREE 350.1.13.10 [place] [id number] [facility] 403 Branch 2022-05-02 2022-05-06 Outpatient [facility] [id number] Univers 07:11:00 18:30:00 JERRY mooney [facility] 2022-05-02 2022-05-06 Emergency BarnettDwayne [facility] 1.2.840. 114 [id number] Univers 07:11:00 18:30:00 Jerry Tam 350.1.13.10 ity of [facility] [place] [id number] [facility] 081 Branch 2022-05-02 2022-05-02 Transition OSMAR Ladd 1.2.840.114 [id number] Univers 00:00:00 00:00:00 of Care Alex DUPREE 350.1.13.10 [place] [id number] [facility] 403 Branch 2022-04-26 2022-04-30 [facility] Antoina GriffithsE 1.2.840.11 [id number] Univers 14:14:00 21:30:00 Encounter BentleyMarianela zhou FARZANA 350.1.13.10 ity of [facility] 4.2.7.2.686 [place] [id number] [facility] 093 Branch 2022-04-26 2022-04-30 Inpatient X [facility] [id number] Univers 14:14:00 21:30:00 YOCASTA ity of [facility] 2022-04-28 2022-04-28 Surgery HERRERA Altman 1.2.840.114 [id number] Univers 12:30:00 13:50:00 Ara YANES 350.1.13.10 ity of [facility] 4.2.7.2.686 Jose as [id number] [facility] 103 Branch 2022-03-02 2022-03-02 Telephone Alisno Mcgarry 1.2.840.1 [id number] Univers 00:00:00 00:00:00 19560.1.1 ity of 3.412.2.7 [place] .3.688440 MD Chung [facility] [place] 2022-03-02 2022-03-02 Documentat Alison Mcgarry 1.2.840.1 [id number] Univers 00:00:00 00:00:00 ion 36424.1.1 ity of 3.412.2.7 [place] .3.739859 MD Chung [facility] 2021-07-23 2021-07-23 Telephone Julio, 1.2.840.1 [id number] Univers 00:00:00 00:00:00 Shalonda Munoz 19425.1.1 ity of 3.412.2.7 [place] .3.153031 MD Chung [facility] 2021-07-23 2021-07-23 Telephone Kim, 1.2.840.1 [id number] Univers 00:00:00 00:00:00 Shalonda Munoz 68080.1.1 ity of 3.412.2.7 [place] .3.017585 MD .8 [facility] 2021-06-10 2021-06-10 Orders Benjamín, 1.2.840.1 [id number] [id number] Univers 00:00:00 00:00:00 Only Tonia Hussein 60216.1.1 it y of 3.412.2.7 [place] .3.974241 .8 [facility] 2021-06-10 2021-06-10 Orders Benjamín, 1.2.840.1 [id number] Univers 00:00:00 00:00:00 Only Tonia Hussein 25138.1.1 it y of 3.412.2.7 [place] .3.052479 .8 [facility] 2021-02-04 2021-02-04 [facility] 1.2.394.910 [id number] Univers 13:39:00 18:19:00 Antonia Reno 350.1.13.10 i ty of [place] 4.2.7.2.686 [facility] [id number] [facility] 084 Branch 2021-02-04 2021-02-04 Orders Doctor LINH 1.2.840.114 [id number] Univers 00:00:00 00:00:00 Only Unassigned, FARZANA 350.1.13.10 ity of [place] [facility] 4.2.7.2.686 [facility] [id number] [facility] 009 Branch 2021-02-02 2021-02-02 Telephone Alison Mcgarry 1.2.840.1 [id number] Univers 00:00:00 00:00:00 64407.1.1 ity of 3.412.2.7 [place] .3.650001 MD Miles8 [facility] 2020-10-13 2020-10-17 Inpatient E TO [facility] 7502 [facility] 17:23:00 10:25:00 BRADFORD 2020-06-04 2020-06-04 Outpatient BIGG [facility] CAR 7501 [facility] 08:45:00 23:59:00 KATELYN 2020-01-25 2020-01-25 Telephone LINH Jennings 1.2.621.272 [id number] [facility] 00:00:00 00:00:00 Ashley YANES 350.1.13.10 i ty [facility] 4.2.7.2.686 Jose as [id number] [address] 2020-01-25 2020-01-25 Telephone LINH Jennings 1.2.107.685 [id number] 00:00:00 00:00:00 Ashley YANES 350.1.13.10 [facility] 4.2.7.2.686 [id number] [facility] 2020-01-24 2020-01-24 Outpatient R BOOM, [facility] [id number] Univers 16:40:00 16:40:00 ISSA mooney [facility] 2020-01-24 2020-01-24 Laboratory Lab, [facility] Fam Pob I [facility] 1.2. 840.114 [id number] [facility] 14:45:15 15:30:48 Only Issa [place]rien 350.1.13.10 ity [facility] 4.2.7.2.686 Jose as Professio [id number] [address] Office Building [facility] 2020-01-24 2020-01-24 Laboratory Lab, [facility] 1.2.840.114 [id number] 14:45:15 15:30:48 Only Fam Pob I Health 350.1.13.10 [place] 4.2.7.2.686 Professio [phone] [place] [address] Office [address] [facility] 2019-12-20 2019-12-20 Outpatient MAITE MARCIAL MDA MDA [id number] 09:37:45 11:58:12 NAHID sanchez 2019-12-20 2019-12-20 Outpatient MAITE MARCIAL, MDA MDA [id number] 10:47:51 10:47:51 NAHID sanchez 2019-12-20 2019-12-20 Outpatient MAITE MARCIAL MDA MDA [id number] 00:00:00 00:00:00 NAHID sanchez 2019-12-18 2019-12-18 Outpatient MAITE GRANT MDA MDA [id number] 09:29:08 23:59:00 TONIA sanchez 2019-12-16 2019-12-16 Outpatient MAITE GRANT MDA [facility] [id number] MD 06:25:15 06:25:15 TONIA sanchez 2019-05-05 2019-05-05 [facility] [id number] Memoria 04:57:00 22:54:00 n flora Chery 41 l [facility] 2019-05-05 2019-05-05 Observatio [facility]Flavo [facility] [id number] [id number] Memoria 04:57:00 22:54:00 n flora Chery 41 l [facility] 2019-05-04 2019-05-05 Outpatient Dhamotharan [facility] 049 [id number] 22:57:00 16:54:00 , Simone Amezquita Satish 2019-05-04 2019-05-04 Outpatient U [facility] MED [id number] [facility] 22:57:00 22:57:00 2013-12-06 2013-12-07 [facility]patient [facility] [id number] Memoria 18:00:00 04:59:00 r Vik 00 l [facility] [place] 2013-12-06 2013-12-07 Outpatient [facility] [id number] Memoria 18:00:00 04:59:00 r [place] 00 l [facility] [place] 2013-12-06 2013-12-07 Outpt Diag nullFlavo [facility] [id number] Memoria 15:19:00 04:59:00 Services r Outpatient 00 l [place] 2013-12-06 2013-12-07 Outpt Diag nullFlavo [facility] [id number] Memoria 15:19:00 04:59:00 Services r Outpatient 00 l Imaging Vik [place] 2013-12-06 2013-12-06 Outpatient [facility], 2.16.840. 2.16.840.1. [id number] 13:00:00 23:59:00 Anjail 1.492801. 956925.3.61 00 Aiden 3.615.0.1 5.0.154 11 0408-07-11 2013-12-06 Outpatient [facility], 2.16.840. 2.16.840.1. [id number] 10:19:00 23:59:00 Anjail 1.515059. 649175.3.61 00 Aiden 3.615.0.1 5.0.101 01 Results Test Description Test Time Test Comments Results Result Comments Source POCT GLUCOSE (AUTOMATED) 2022-05-06 23:49:54 Test Item Value Reference Range Interpretation Comme nts POCT GLU (test code = 0758941791) 230 mg/dL 70-110 H Lab Interpretation (test code = 50746-1) Abnormal [facility] GLUCOSE (AUTOMATED)2022-05-06 18:32:27 Test Item Value Reference Range Interpretation Comments POCT GLU (test code = 5826307137) 171 mg/dL 70-110 H Lab Interpretation (test code = Abnormal 74859-3) [facility] GLUCOSE (AUTOMATED)2022-05-06 14:15:01 Test Item Value Reference Range Interpretation Comments POCT GLU (test code = 9427175419) 202 mg/dL 70-110 H Lab Interpretation (test code = Abnormal 10112-5) [facility] 02:40:41 Test Item Value Reference Range Interpretation Comments POCT GLU (test code = 2166684777) 294 mg/dL 70-110 H Lab Interpretation (test code = Abnormal 86626-5) [facility] GLUCOSE (AUTOMATED)2022-05-06 02:10:55 Test Item Value Reference Range Interpretation Comments POCT GLU (test code = 0382535172) 256 mg/dL 70-110 H Lab Interpretation (test code = Abnormal 69839-6) [facility] 18:06:12 Test Item Value Reference Range Interpretation Comments POCT GLU (test code = 0713755590) 331 mg/dL 70-110 H Lab Interpretation (test code = Abnormal 93238-9) [facility] 14:18:20 Test Item Value Reference Range Interpretation Comments POCT GLU (test code = 5655274061) 154 mg/dL 70-110 H Lab Interpretation (test code = Abnormal 78111-6) [facility] GLUCOSE (AUTOMATED)2022-05-05 02:07:29 Test Item Value Reference Range Interpretation Comments POCT GLU (test code = 5344049670) 215 mg/dL 70-110 H Lab Interpretation (test code = Abnormal 48951-9) [facility] GLUCOSE (AUTOMATED)2022-05-04 22:46:58 Test Item Value Reference Range Interpretation Comments POCT GLU (test code = 4351749312) 260 mg/dL 70-110 H Lab Interpretation (test code = Abnormal 57192-7) [facility] GLUCOSE (AUTOMATED)2022-05-04 22:46:52 Test Item Value Reference Range Interpretation Comments POCT GLU (test code = 0806557193) 115 mg/dL 70-110 H Lab Interpretation (test code = Abnormal 55066-0) [facility] GLUCOSE (AUTOMATED)2022-05-04 18:47:49 Test Item Value Reference Range Interpretation Comments POCT GLU (test code = 5757661976) 216 mg/dL 70-110 H Lab Interpretation (test code = Abnormal 66379-6) [facility] GLUCOSE (AUTOMATED)2022-05-04 13:49:57 Test Item Value Reference Range Interpretation Comments POCT GLU (test code = 3595088808) 154 mg/dL 70-110 H Lab Interpretation (test code = Abnormal 97495-4) [facility] GLUCOSE (AUTOMATED)2022-05-04 02:01:43 Test Item Value Reference Range Interpretation Comments POCT GLU (test code = 5099986318) 116 mg/dL 70-110 H Lab Interpretation (test code = Abnormal 29769-9) [facility] GLUCOSE (AUTOMATED)2022-05-03 18:04:52 Test Item Value Reference Range Interpretation Comments POCT GLU (test code = 3047884746) 252 mg/dL 70-110 H Lab Interpretation (test code = Abnormal 78030-9) [facility] GLUCOSE (AUTOMATED)2022-05-03 17:29:21 Test Item Value Reference Range Interpretation Comments POCT GLU (test code = 6504889151) 249 mg/dL 70-110 H Lab Interpretation (test code = Abnormal 75944-3) [facility] GLUCOSE (AUTOMATED)2022-05-03 14:14:13 Test Item Value Reference Range Interpretation Comments POCT GLU (test code = 6592625741) 134 mg/dL 70-110 H Lab Interpretation (test code = Abnormal 61462-6) [facility] WITH [id number] 12:46:43 Test Item Value Reference Range Interpretation Comments WBC (test code = See_Comment H [Automated 6690-2) message] The system which generated this result transmit danica reference range : 4.20 - 10.70 10*3/?L. The reference range was not used to interpret this result as normal/abnormal . RBC (test code = See_Comment L [Automated 789-8) message] The system which generated this result transmit danica reference range : 4.26 - 5.52 10*6/?L. The reference range was not used to interpret this result as normal/abnormal . HGB (test code = 10.0 g/dL 12.2-16.4 L 718-7) HCT (test code = 29.6 % 38.4-49.3 L 4544-3) MCV (test code = 91.6 fL 81.7-95.6 787-2) MCH (test code = 31.0 pg 26.1-32.7 785-6) MCHC (test code = 33.8 g/dL 31.2-35.0 786-4) RDW-SD (test code = 48.2 fL 38.5-51.6 95019-5) RDW-CV (test code = 14.3 % 12.1-15.4 788-0) PLT (test code = See_Comment [Automated 777-3) message] The system which generated this result transmit danica reference range : 150 - 328 10*3/ ?L. The reference range was not u sed to interpret th is result as normal/abnormal . MPV (test code = 11.1 fL 9.8-13.0 37731-6) NRBC/100 WBC (test See_Comment [Automat ed code = 6311873879) message] The system which generated this result transmit danica reference range : 0.0 - 10.0 /100 WBCs. The reference range was not used to interpret this result as normal/abnormal . NRBC x10^3 (test code See_Comment [Auto mated = 7170006234) message] The system which generated this result transmit danica reference range : 10*3/?L. The reference range was not used to interpret this result as normal/abnormal . SEG % (test code = 80 % 33-76 H 85052-6) BAND % (test code = 4 % 0-1 H 62103-4) LYMPH % (test code = 8 % 14-54 L 49311-1) MONO % (test code = 8 % 0-4 H 17230-0) ANC (test code = 13.31 10*3/uL 1.99-6.95 H 753-4) Lab Interpretation Abnormal (test code = 45307-0) [facility]55[facility]34 Test Item Value Reference Range Interpretation Comments MAGNESIUM (test code = 5056478399) 1.7 mg/dL 1.7-2.4 Lab Interpretation (test code = Normal 33682-3) [facility] METABOLIC PANEL (NA, K, CL, CO2, GLUCOSE, BUN, CREATININE, CA)2022-05-03 11:55:14 Test Item Value Reference Range Interpretation Comments NA (test code = 140 mmol/L 135-145 8282067564) K (test code = 3.9 mmol/L 3.5-5.0 8108315455) CL (test code = 106 mmol/L 98-108 7614709611) CO2 TOTAL (test code = 25 mmol/L 23-31 3069031295) AGAP (test code = 2-16 6159588649) BUN (test code = 24 mg/dL 7-23 H 8062577842) GLUCOSE (test code = 148 mg/dL 70-110 H 8528609835) CREATININE (test code = 0.98 mg/dL 0.60-1.25 1701062474) CALCIUM (test code = 10.5 mg/dL 8.6-10.6 0583638775) eGFR (test code = mL/min/1.73m2 8377518590) DANIEL (test code = DANIEL) Association of [...] tests). Lab Interpretation Abnormal (test code = 89887-1) [facility] GLUCOSE (AUTOMATED)2022-05-03 04:25:58 Test Item Value Reference Range Interpretation Comments POCT GLU (test code = 7348955951) 205 mg/dL 70-110 H Lab Interpretation (test code = Abnormal 41731-4) [facility] GLUCOSE (AUTOMATED)2022-05-02 22:38:26 Test Item Value Reference Range Interpretation Comments POCT GLU (test code = 2571692394) 148 mg/dL 70-110 H Lab Interpretation (test code = Abnormal 59596-9) [facility] GLUCOSE (AUTOMATED)2022-05-02 17:40:50 Test Item Value Reference Range Interpretation Comments POCT GLU (test code = 3125483185) 197 mg/dL 70-110 H Lab Interpretation (test code = Abnormal 81844-6) [facility] GLUCOSE (AUTOMATED)2022-04-30 23:11:44 Test Item Value Reference Range Interpretation Comments POCT GLU (test code = 0501303411) 198 mg/dL 70-110 H Lab Interpretation (test code = Abnormal 81329-1) [facility] GLUCOSE (AUTOMATED)2022-04-30 17:43:09 Test Item Value Reference Range Interpretation Comments POCT GLU (test code = 7818055550) 347 mg/dL 70-110 H Lab Interpretation (test code = Abnormal 10711-1) [facility] GLUCOSE (AUTOMATED)2022-04-30 14:14:00 Test Item Value Reference Range Interpretation Comments POCT GLU (test code = 2985279616) 115 mg/dL 70-110 H Lab Interpretation (test code = Abnormal 25487-5) [facility] GLUCOSE (AUTOMATED)2022-04-30 02:52:51 Test Item Value Reference Range Interpretation Comments POCT GLU (test code = 2494601873) 180 mg/dL 70-110 H Lab Interpretation (test code = Abnormal 33018-8) [facility] GLUCOSE (AUTOMATED)2022-04-29 22:38:56 Test Item Value Reference Range Interpretation Comments POCT GLU (test code = 2814878579) 219 mg/dL 70-110 H Lab Interpretation (test code = Abnormal 19425-2) [facility] GLUCOSE (AUTOMATED)2022-04-29 22:38:56 Test Item Value Reference Range Interpretation Comments POCT GLU (test code = 6941411277) 219 mg/dL 70-110 H Lab Interpretation (test code = Abnormal 24589-2) [facility] GLUCOSE (AUTOMATED)2022-04-29 17:45:44 Test Item Value Reference Range Interpretation Comments POCT GLU (test code = 8263003467) 253 mg/dL 70-110 H Lab Interpretation (test code = Abnormal 73395-7) [facility] GLUCOSE (AUTOMATED)2022-04-29 17:45:44 Test Item Value Reference Range Interpretation Comments POCT GLU (test code = 4858894925) 253 mg/dL 70-110 H Lab Interpretation (test code = Abnormal 43044-2) [facility] GLUCOSE (AUTOMATED)2022-04-29 14:06:55 Test Item Value Reference Range Interpretation Comments POCT GLU (test code = 4521341608) 126 mg/dL 70-110 H Lab Interpretation (test code = Abnormal 01013-0) [facility] GLUCOSE (AUTOMATED)2022-04-29 14:06:55 Test Item Value Reference Range Interpretation Comments POCT GLU (test code = 2939952729) 126 mg/dL 70-110 H Lab Interpretation (test code = Abnormal 63216-2) [facility] METABOLIC PANEL (NA, K, CL, CO2, GLUCOSE, BUN, CREATININE, CA)2022-04-29 12:19:06 Test Item Value Reference Range Interpretation Comments NA (test code = 136 mmol/L 135-145 9527382137) K (test code = 3.7 mmol/L 3.5-5.0 1881622099) CL (test code = 104 mmol/L 98-108 7509101255) CO2 TOTAL (test code = 25 mmol/L 23-31 8430899910) AGAP (test code = 2-16 9223345024) BUN (test code = 29 mg/dL 7-23 H 8867995505) GLUCOSE (test code = 138 mg/dL 70-110 H 3928030447) CREATININE (test code = 1.24 mg/dL 0.60-1.25 8268572857) CALCIUM (test code = 10.2 mg/dL 8.6-10.6 0846195677) eGFR (test code = mL/min/1.73m2 6437114110) DANIEL (test code = DANIEL) Association of [...] tests). Lab Interpretation Abnormal (test code = 25199-0) [facility] 12:19:06 Test Item Value Reference Range Interpretation Comments MAGNESIUM (test code = 9037723452) 2.3 mg/dL 1.7-2.4 Lab Interpretation (test code = Normal 80279-1) [facility] (NA, K, CL, CO2, GLUCOSE, BUN, CREATININE, CA)2022-04-29 12:19:06 Test Item Value Reference Range Interpretation Comments NA (test code = 136 mmol/L 135-145 0184613024) K (test code = 3.7 mmol/L 3.5-5.0 9403917009) CL (test code = 104 mmol/L 98-108 9947688300) CO2 TOTAL (test code = 25 mmol/L 23-31 2713759585) AGAP (test code = 2-16 8607898801) BUN (test code = 29 mg/dL 7-23 H 3023286537) GLUCOSE (test code = 138 mg/dL 70-110 H 7236943411) CREATININE (test code = 1.24 mg/dL 0.60-1.25 4665942301) CALCIUM (test code = 10.2 mg/dL 8.6-10.6 7086602965) eGFR (test code = mL/min/1.73m2 0415468028) DANIEL (test code = DANIEL) Association of [...] tests). Lab Interpretation Abnormal (test code = 98424-2) [facility] 12:19:06 Test Item Value Reference Range Interpretation Comments MAGNESIUM (test code = 8360198994) 2.3 mg/dL 1.7-2.4 Lab Interpretation (test code = Normal 48529-6) [facility] WITH [id number] 11:56:21 Test Item Value Reference Range Interpretation Comments WBC (test code = See_Comment [Automated 6690-2) message] The sy stem which generated this result transmitted reference range : 4.20 - 10.70 10*3/?L. The reference range was not used to interpret this result as normal/abnormal . RBC (test code = See_Comment L [Automated 199-8) message] The sy stem which generated this result transmitted reference range : 4.26 - 5.52 10*6/?L. The reference range was not used to interpret this result as normal/abnormal . HGB (test code = 11.0 g/dL 12.2-16.4 L 718-7) HCT (test code = 31.4 % 38.4-49.3 L 4544-3) MCV (test code = 89.2 fL 81.7-95.6 787-2) MCH (test code = 31.3 pg 26.1-32.7 785-6) MCHC (test code = 35.0 g/dL 31.2-35.0 786-4) RDW-SD (test code = 48.4 fL 38.5-51.6 44905-4) RDW-CV (test code = 14.7 % 12.1-15.4 788-0) PLT (test code = See_Comment [Automated 777-3) message] The sy stem which generated this result transmitted reference range : 150 - 328 10*3/ ?L. The reference r shayna was not used to interpret this result as normal/abnormal . MPV (test code = 10.7 fL 9.8-13.0 02548-9) NRBC/100 WBC (test See_Comment [Automat ed code = 4938979644) message] The system which generated this result transmitted reference range : 0.0 - 10.0 /100 WBCs. The refer ence range was not u sed to interpret th is result as normal/abnormal . NRBC x10^3 (test code See_Comment [Auto mated = 8526833213) message] The s ystem which generated this result transmitted reference range : 10*3/?L. The reference range was not used to interpret this result as normal/abnormal . GRAN MAT (NEUT) % 76.7 % (test code = 770-8) IMM GRAN % (test code 0.40 % = 3943119866) LYMPH % (test code = 10.9 % 736-9) MONO % (test code = 10.1 % 5905-5) EOS % (test code = 1.5 % 713-8) BASO % (test code = 0.4 % 706-2) GRAN MAT x10^3(ANC) 7.29 10*3/uL 1.99-6.95 H (test code = 1385513740) IMM GRAN x10^3 (test 0.04 10*3/uL 0.00-0.06 code = 0315155699) LYMPH x10^3 (test code 1.04 10*3/uL 1.09-3.23 L = 731-0) MONO x10^3 (test code 0.96 10*3/uL 0.36-1.02 = 742-7) EOS x10^3 (test code = 0.14 10*3/uL 0.06-0.53 711-2) BASO x10^3 (test code 0.04 10*3/uL 0.01-0.09 = 704-7) Lab Interpretation Abnormal (test code = 59070-2) [facility] WITH [id number] 11:56:21 Test Item Value Reference Range Interpretation Comments WBC (test code = See_Comment [Automated 6690-2) message] The sy stem which generated this result transmitted reference range : 4.20 - 10.70 10*3/?L. The reference range was not used to interpret this result as normal/abnormal . RBC (test code = See_Comment L [Automated 789-8) message] The sy stem which generated this result transmitted reference range : 4.26 - 5.52 10*6/?L. The reference range was not used to interpret this result as normal/abnormal . HGB (test code = 11.0 g/dL 12.2-16.4 L 718-7) HCT (test code = 31.4 % 38.4-49.3 L 4544-3) MCV (test code = 89.2 fL 81.7-95.6 787-2) MCH (test code = 31.3 pg 26.1-32.7 785-6) MCHC (test code = 35.0 g/dL 31.2-35.0 786-4) RDW-SD (test code = 48.4 fL 38.5-51.6 38474-7) RDW-CV (test code = 14.7 % 12.1-15.4 788-0) PLT (test code = See_Comment [Automated 777-3) message] The sy stem which generated this result transmitted reference range : 150 - 328 10*3/ ?L. The reference r shayna was not used to interpret this result as normal/abnormal . MPV (test code = 10.7 fL 9.8-13.0 34188-5) NRBC/100 WBC (test See_Comment [Automat ed code = 1371999892) message] The system which generated this result transmitted reference range : 0.0 - 10.0 /100 WBCs. The refer ence range was not u sed to interpret th is result as normal/abnormal . NRBC x10^3 (test code See_Comment [Auto mated = 4975405161) message] The s ystem which generated this result transmitted reference range : 10*3/?L. The reference range was not used to interpret this result as normal/abnormal . GRAN MAT (NEUT) % 76.7 % (test code = 770-8) IMM GRAN % (test code 0.40 % = 4296640062) LYMPH % (test code = 10.9 % 736-9) MONO % (test code = 10.1 % 5905-5) EOS % (test code = 1.5 % 713-8) BASO % (test code = 0.4 % 706-2) GRAN MAT x10^3(ANC) 7.29 10*3/uL 1.99-6.95 H (test code = 0327429397) IMM GRAN x10^3 (test 0.04 10*3/uL 0.00-0.06 code = 8914846336) LYMPH x10^3 (test code 1.04 10*3/uL 1.09-3.23 L = 731-0) MONO x10^3 (test code 0.96 10*3/uL 0.36-1.02 = 742-7) EOS x10^3 (test code = 0.14 10*3/uL 0.06-0.53 711-2) BASO x10^3 (test code 0.04 10*3/uL 0.01-0.09 = 704-7) Lab Interpretation Abnormal (test code = 43078-4) [facility] GLUCOSE (AUTOMATED)2022-04-29 02:43:52 Test Item Value Reference Range Interpretation Comments POCT GLU (test code = 9484768641) 295 mg/dL 70-110 H Lab Interpretation (test code = Abnormal 88064-3) [facility] GLUCOSE (AUTOMATED)2022-04-29 02:43:52 Test Item Value Reference Range Interpretation Comments POCT GLU (test code = 9475533139) 295 mg/dL 70-110 H Lab Interpretation (test code = Abnormal 72044-0) [facility] GLUCOSE (AUTOMATED)2022-04-28 22:41:46 Test Item Value Reference Range Interpretation Comments POCT GLU (test code = 5333039444) 145 mg/dL 70-110 H Lab Interpretation (test code = Abnormal 83313-1) [facility] GLUCOSE (AUTOMATED)2022-04-28 22:41:46 Test Item Value Reference Range Interpretation Comments POCT GLU (test code = 0359302850) 145 mg/dL 70-110 H Lab Interpretation (test code = Abnormal 29588-3) [facility] GLUCOSE (AUTOMATED)2022-04-28 14:43:59 Test Item Value Reference Range Interpretation Comments POCT GLU (test code = 4560050497) 144 mg/dL 70-110 H Lab Interpretation (test code = Abnormal 40792-7) [facility] GLUCOSE (AUTOMATED)2022-04-28 14:43:59 Test Item Value Reference Range Interpretation Comments POCT GLU (test code = 4986146100) 144 mg/dL 70-110 H Lab Interpretation (test code = Abnormal 70878-1) [facility] GLUCOSE (AUTOMATED)2022-04-28 03:52:55 Test Item Value Reference Range Interpretation Comments POCT GLU (test code = 7418527601) 180 mg/dL 70-110 H Lab Interpretation (test code = Abnormal 41051-3) [facility] GLUCOSE (AUTOMATED)2022-04-28 03:52:55 Test Item Value Reference Range Interpretation Comments POCT GLU (test code = 2253936447) 180 mg/dL 70-110 H Lab Interpretation (test code = Abnormal 12883-2) [facility]33 Test Item Value Reference Range Interpretation Comments Height (test code = in 8784455899) Weight (test code = lbs 6868690424) Systolic BP (test code = mmHg 3754042806) Diastolic BP (test code mmHg = 8581575967) Heart Rate (test code = bpm 3569106579) LVOT stroke volume (test 97.90 cm3 code = 5862379574) EF(Teich) (test code = 64.50 % 0067958888) LVIDD (test code = 4.40 cm 5434123766) LVIDS (test code = 2.90 cm 3893631229) Left Ventricular End 30.9 mL Systolic Volume by Teichholz Method (test code = 9223035) Left Ventricular End 87.0 mL Diastolic Volume by Teichholz Method (test code = 0599548) IVS (test code = 1.07 cm 3742389297) LVPWD (test code = 0.92 cm 9320853530) LVOT diameter (test code 2.23 cm = 0590045242) LVOT area (test code = 3.90 cm2 1239850038) FS (test code = 35 % 6477834132) MV Peak E Elise (test code 81.8 cm/s = 9758300593) MV Peak A Elise (test code 104.1 cm/s = 8612424323) E/A ratio (test code = ratio 3731742240) E wave decelartion time 0.36 s (test code = 8905231906) MV E/e' septal (test 7.4 cm/s code = 4367890371) LA Volume Index (BP) 29.2 mL/m2 (test code = 3909535520) LA volume (BP) (test 57.2 mL code = 5761510985) LVOT peak elise (test code 114.0 cm/s = 5760141805) LVOT mn grad (test code mmHg = 2167987028) Left Ventricular Cardiac 6.9 L/min Output (test code = 6748421) BSA (test code = 1.96 m2 8611858177) LA size (test code = 4.3 cm 8738856570) LAV(MOD-sp2) (test code 62.60 mL = 3987549565) LAV(MOD-sp4) (test code 48.60 mL = 4117170356) Tapse (test code = 1.93 cm 9077896632) AV LVOT peak gradient mmHg (test code = 3344722267) LVOT peak VTI (test code 25.2 cm = 4790114333) Aortic HR (test code = BPM 4328362876) LV V1 mean (test code = 70.80 cm/s 0921225098) Ao root diam (test code 3.70 cm = 7594445547) Aortic root (test code = 3.7 cm 0743564187) Ao root annulus (test 3.7 cm code = 7078239628) PW (test code = 0.92 cm 0.6-1.2 9263060492) EF - 2D (test code = 64.50 % 34377960) Interventricular Septum 1.07 cm Diastolic Thickness by 2D (test code = 2069773) Aortic valve mean 76.9 cm/s velocity (test code = 7969204594) Ao peak elise (test code = 119.4 cm/s 9141541317) Ao VTI (test code = 24.6 cm 7774924491) AV area by cont VTI 3.9 cm2 (test code = 6837193611) AV area peak elise (test 3.7 cm2 code = 9847993488) Ao max PG (test code = 5.70 mm[Hg] 4822833943) AV peak gradient (test mmHg code = 0028446493) AV valve area (test code 3.90 cm2 = 6267738239) AV mean gradient (test mmHg code = 9868335990) Radiology Study observation (narrative) (test code = 12198-1) DANIEL (test code = DANIEL) ?Left?Ventricle: Left ventricle size is normal. There is concentric remodeling. Normal wall motion. Normal systolic function with a visually estimated EF of 55 - 60%. Normal diastolic function. Normal left ventricular filling pressure. ?Right?Ventricle: Right ventricle size is normal. Normal systolic function. ?Left?Atrium: Left atrium size is normal. Left atrium volume index is 29.2 mL/m2. Saline contrast shows no shunt. ?Tricuspid?Valve: Tricuspid valve structure is normal. Insufficient tricuspid regurgitation jet to estimate RVSP. Left VentricleLeft ventricle size is normal. There is concentric remodeling. Normal wall motion. Normal systolic function with a visually estimated EF of 55 - 60%. Normal diastolic function. Normal left ventricular filling pressure.Right VentricleRight ventricle size is normal. Normal systolic function.Left AtriumLeft atrium size is normal. Left atrium volume index is 29.2 mL/m2. Saline contrast shows no shunt.Right AtriumRight atrium size is normal.IVC/SVCIVC was not assessed due to poor image quality.Mitral ValveMitral valve structure is normal. Mild mitral annular calcification. No transvalvular regurgitation. No stenosis.Tricuspid ValveTricuspid valve structure is normal. Insufficient tricuspid regurgitation jet to estimate RVSP.Aortic ValveNot well visualized. Mildly thickened cusps. Mildly calcified cusps. No transvalvular regurgitation. No hemodynamically significant .Pulmonic ValveNot well visualized.Ascending AortaNormal sized aortic root.PericardiumThe pericardium is normal. No pericardial effusion.Study DetailsStudy quality experienced technical difficulty. A complete echocardiogram was performed using 2D, color flow Doppler and spectral Doppler. Saline contrast was performed. [facility] 02:51:33 Test Item Value Reference Range Interpretation Comments Height (test code = in 1952962537) Weight (test code = lbs 9335955605) Systolic BP (test code = mmHg 4989345174) Diastolic BP (test code mmHg = 3786281331) Heart Rate (test code = bpm 7610781866) LVOT stroke volume (test 97.90 cm3 code = 9376923339) EF(Teich) (test code = 64.50 % 2545463822) LVIDD (test code = 4.40 cm 2209532429) LVIDS (test code = 2.90 cm 7986150692) Left Ventricular End 30.9 mL Systolic Volume by Teichholz Method (test code = 6624619) Left Ventricular End 87.0 mL Diastolic Volume by Teichholz Method (test code = 8925753) IVS (test code = 1.07 cm 0117553251) LVPWD (test code = 0.92 cm 1844936687) LVOT diameter (test code 2.23 cm = 8586236264) LVOT area (test code = 3.90 cm2 2421698999) FS (test code = 35 % 0280926125) MV Peak E Elise (test code 81.8 cm/s = 2668893374) MV Peak A Elise (test code 104.1 cm/s = 6129619791) E/A ratio (test code = ratio 5936349000) E wave decelartion time 0.36 s (test code = 7037540187) MV E/e' septal (test 7.4 cm/s code = 9640236247) LA Volume Index (BP) 29.2 mL/m2 (test code = 0866061511) LA volume (BP) (test 57.2 mL code = 2011264074) LVOT peak elise (test code 114.0 cm/s = 6080164574) LVOT mn grad (test code mmHg = 9617718646) Left Ventricular Cardiac 6.9 L/min Output (test code = 9211919) BSA (test code = 1.96 m2 8095739234) LA size (test code = 4.3 cm 5181937861) LAV(MOD-sp2) (test code 62.60 mL = 7987591008) LAV(MOD-sp4) (test code 48.60 mL = 5039436092) Tapse (test code = 1.93 cm 0563482573) AV LVOT peak gradient mmHg (test code = 7870031803) LVOT peak VTI (test code 25.2 cm = 1295353178) Aortic HR (test code = BPM 2658646747) LV V1 mean (test code = 70.80 cm/s 4912833083) Ao root diam (test code 3.70 cm = 4174897326) Aortic root (test code = 3.7 cm 7856192293) Ao root annulus (test 3.7 cm code = 2121834608) PW (test code = 0.92 cm 0.6-1.3 3564979308) EF - 2D (test code = 64.50 % 55549697) Interventricular Septum 1.07 cm Diastolic Thickness by 2D (test code = 5340624) Aortic valve mean 76.9 cm/s velocity (test code = 3988031981) Ao peak elise (test code = 119.4 cm/s 6482098316) Ao VTI (test code = 24.6 cm 1398369156) AV area by cont VTI 3.9 cm2 (test code = 2338617178) AV area peak elise (test 3.7 cm2 code = 4390229678) Ao max PG (test code = 5.70 mm[Hg] 3738226197) AV peak gradient (test mmHg code = 7301778597) AV valve area (test code 3.90 cm2 = 0563430023) AV mean gradient (test mmHg code = 0166260934) Radiology Study observation (narrative) (test code = 30172-3) DANIEL (test code = DANIEL) ?Left?Ventricle: Left ventricle size is normal. There is concentric remodeling. Normal wall motion. Normal systolic function with a visually estimated EF of 55 - 60%. Normal diastolic function. Normal left ventricular filling pressure. ?Right?Ventricle: Right ventricle size is normal. Normal systolic function. ?Left?Atrium: Left atrium size is normal. Left atrium volume index is 29.2 mL/m2. Saline contrast shows no shunt. ?Tricuspid?Valve: Tricuspid valve structure is normal. Insufficient tricuspid regurgitation jet to estimate RVSP. Left VentricleLeft ventricle size is normal. There is concentric remodeling. Normal wall motion. Normal systolic function with a visually estimated EF of 55 - 60%. Normal diastolic function. Normal left ventricular filling pressure.Right VentricleRight ventricle size is normal. Normal systolic function.Left AtriumLeft atrium size is normal. Left atrium volume index is 29.2 mL/m2. Saline contrast shows no shunt.Right AtriumRight atrium size is normal.IVC/SVCIVC was not assessed due to poor image quality.Mitral ValveMitral valve structure is normal. Mild mitral annular calcification. No transvalvular regurgitation. No stenosis.Tricuspid ValveTricuspid valve structure is normal. Insufficient tricuspid regurgitation jet to estimate RVSP.Aortic ValveNot well visualized. Mildly thickened cusps. Mildly calcified cusps. No transvalvular regurgitation. No hemodynamically significant .Pulmonic ValveNot well visualized.Ascending AortaNormal sized aortic root.PericardiumThe pericardium is normal. No pericardial effusion.Study DetailsStudy quality experienced technical difficulty. A complete echocardiogram was performed using 2D, color flow Doppler and spectral Doppler. Saline contrast was performed. [facility] GLUCOSE (AUTOMATED)2022-04-27 23:32:14 Test Item Value Reference Range Interpretation Comments POCT GLU (test code = 3795575948) 160 mg/dL 70-110 H Lab Interpretation (test code = Abnormal 19449-6) [facility] GLUCOSE (AUTOMATED)2022-04-27 23:32:14 Test Item Value Reference Range Interpretation Comments POCT GLU (test code = 9961727902) 160 mg/dL 70-110 H Lab Interpretation (test code = Abnormal 95559-8) [facility] GLUCOSE (AUTOMATED)2022-04-27 18:36:36 Test Item Value Reference Range Interpretation Comments POCT GLU (test code = 2261893465) 204 mg/dL 70-110 H Lab Interpretation (test code = Abnormal 85375-4) [facility] GLUCOSE (AUTOMATED)2022-04-27 18:36:36 Test Item Value Reference Range Interpretation Comments POCT GLU (test code = 2358913919) 204 mg/dL 70-110 H Lab Interpretation (test code = Abnormal 30499-5) [facility] GLUCOSE (AUTOMATED)2022-04-27 14:23:58 Test Item Value Reference Range Interpretation Comments POCT GLU (test code = 7314033121) 145 mg/dL 70-110 H Lab Interpretation (test code = Abnormal 11694-2) [facility] 14:23:58 Test Item Value Reference Range Interpretation Comments POCT GLU (test code = 5714447817) 145 mg/dL 70-110 H Lab Interpretation (test code = Abnormal 49056-4) [facility] 07:19:33 Test Item Value Reference Range Interpretation Comments HGB A1C (test code = 6.8 % 4.0-5.7 H 4548-4) DANIEL (test code = DANIEL) Reference RangesNormal: <5.7%Prediabetes: 5.7 - 6.4%Diabetes: > 6.5% Lab Interpretation (test Abnormal code = 60265-5) [facility]2022-04-27 07:19:33 Test Item Value Reference Range Interpretation Comments HGB A1C (test code = 6.8 % 4.0-5.7 H 4548-4) DANIEL (test code = DANIEL) Reference RangesNormal: <5.7%Prediabetes: 5.7 - 6.4%Diabetes: > 6.5% Lab Interpretation (test Abnormal code = 65650-0) [facility] [id number] 06:57:19 Test Item Value Reference Interpretation Comments Range TROPONIN I (test 0.004 ng/mL See_Comment [Automated code = 2545328845) message] The system which generated this result transmitted reference range : <=0.034. The reference range was not used to interpret this result as normal/abnormal . DANIEL (test code = Reference (Normal) DANIEL) Range (defined by the 99th percentile reference limit): <= 0.034 ng/mL Note: Cardiac troponin begins to rise 3-4 hours after the onset of ischemia. Repeat in 4-6 hours if the sample was drawn within 3-4 hours of the onset of the symptom and found normal. Diagnosis of myocardial injury is made with acute changes in cTn concentrations with at least one serial sample above the 99th percentile upper reference limit (URL), taken together with the patient's clinical presentation. Biotin has been reported to cause a negative bias, interpret results relative to patient's use of biotin. Lab Interpretation Normal (test code = 17650-5) [facility] [id number] 06:57:19 Test Item Value Reference Interpretation Comments Range TROPONIN I (test 0.004 ng/mL See_Comment [Automated code = 9233271878) message] The system which generated this result transmitted reference range : <=0.034. The reference range was not used to interpret this result as normal/abnormal . DANIEL (test code = Reference (Normal) DANIEL) Range (defined by the 99th percentile reference limit): <= 0.034 ng/mL Note: Cardiac troponin begins to rise 3-4 hours after the onset of ischemia. Repeat in 4-6 hours if the sample was drawn within 3-4 hours of the onset of the symptom and found normal. Diagnosis of myocardial injury is made with acute changes in cTn concentrations with at least one serial sample above the 99th percentile upper reference limit (URL), taken together with the patient's clinical presentation. Biotin has been reported to cause a negative bias, interpret results relative to patient's use of biotin. Lab Interpretation Normal (test code = 84151-8) [facility] GLUCOSE (AUTOMATED)2022-04-27 06:37:04 Test Item Value Reference Range Interpretation Comments POCT GLU (test code = 0958821659) 164 mg/dL 70-110 H Lab Interpretation (test code = Abnormal 68663-8) [facility] GLUCOSE (AUTOMATED)2022-04-27 06:37:04 Test Item Value Reference Range Interpretation Comments POCT GLU (test code = 3590755254) 164 mg/dL 70-110 H Lab Interpretation (test code = Abnormal 57991-6) [facility] ([id number])2022-04-26 22:38:05 Test Item Value Reference Range Interpretation Comments NA (test code = 139 mmol/L 135-145 7084290377) K (test code = 4.1 mmol/L 3.5-5.0 7255385042) CL (test code = 102 mmol/L 98-108 1885067629) CO2 TOTAL (test code = 24 mmol/L 23-31 2059673721) AGAP (test code = 2-16 9673922312) BUN (test code = 24 mg/dL 7-23 H 5622891518) GLUCOSE (test code = 155 mg/dL 70-110 H 5090065805) CREATININE (test code = 1.26 mg/dL 0.60-1.25 H 9632250608) TOTAL BILI (test code = 1.0 mg/dL 0.1-1.3 0519473364) CALCIUM (test code = 11.1 mg/dL 8.6-10.6 H 6755163773) T PROTEIN (test code = 8.2 g/dL 6.3-8.2 9094235466) ALBUMIN (test code = 3.9 g/dL 3.5-5.0 0436162961) ALK PHOS (test code = 71 U/L 34-122 2115851217) ALTv (test code = 32 U/L 5-50 2-6) AST(SGOT) (test code = 26 U/L 13-40 3366442349) eGFR (test code = mL/min/1.73m2 6010130581) DANIEL (test code = DANIEL) Association of [...] tests). Lab Interpretation Abnormal (test code = 72879-2) [facility]. METABOLIC PANEL (95522)2022-04-26 22:38:05 Test Item Value Reference Range Interpretation Comments NA (test code = 139 mmol/L 135-145 6771549755) K (test code = 4.1 mmol/L 3.5-5.0 9676236263) CL (test code = 102 mmol/L 98-108 6984053016) CO2 TOTAL (test code = 24 mmol/L 23-31 2981338834) AGAP (test code = 2-16 2646691964) BUN (test code = 24 mg/dL 7-23 H 7463973681) GLUCOSE (test code = 155 mg/dL 70-110 H 7645178174) CREATININE (test code = 1.26 mg/dL 0.60-1.25 H 5462914817) TOTAL BILI (test code = 1.0 mg/dL 0.1-1.6 6846472424) CALCIUM (test code = 11.1 mg/dL 8.6-10.6 H 1499982675) T PROTEIN (test code = 8.2 g/dL 6.3-8.2 3671835263) ALBUMIN (test code = 3.9 g/dL 3.5-5.0 5198729028) ALK PHOS (test code = 71 U/L 34-122 7094290298) ALTv (test code = 32 U/L 5-50 1742-6) AST(SGOT) (test code = 26 U/L 13-40 9561206449) eGFR (test code = mL/min/1.73m2 4047139327) DANIEL (test code = DANIEL) Association of [...] tests). Lab Interpretation Abnormal (test code = 62898-6) [facility] WITH [id number] 22:35:47 Test Item Value Reference Range Interpretation Comments WBC (test code = See_Comment [Automated 6690-2) message] The sy stem which generated this result transmitted reference range : 4.20 - 10.70 10*3/?L. The reference range was not used to interpret this result as normal/abnormal . RBC (test code = See_Comment L [Automated 069-8) message] The sy stem which generated this result transmitted reference range : 4.26 - 5.52 10*6/?L. The reference range was not used to interpret this result as normal/abnormal . HGB (test code = 13.2 g/dL 12.2-16.4 718-7) HCT (test code = 39.2 % 38.4-49.3 4544-3) MCV (test code = 93.1 fL 81.7-95.6 787-2) MCH (test code = 31.4 pg 26.1-32.7 785-6) MCHC (test code = 33.7 g/dL 31.2-35.0 786-4) RDW-SD (test code = 50.9 fL 38.5-51.6 37410-5) RDW-CV (test code = 14.7 % 12.1-15.4 788-0) PLT (test code = See_Comment [Automated 777-3) message] The sy stem which generated this result transmitted reference range : 150 - 328 10*3/ ?L. The reference r shayna was not used to interpret this result as normal/abnormal . MPV (test code = 10.6 fL 9.8-13.0 82416-7) NRBC/100 WBC (test See_Comment [Automat ed code = 0597652077) message] The system which generated this result transmitted reference range : 0.0 - 10.0 /100 WBCs. The refer ence range was not u sed to interpret th is result as normal/abnormal . NRBC x10^3 (test code See_Comment [Auto mated = 2781820540) message] The s ystem which generated this result transmitted reference range : 10*3/?L. The reference range was not used to interpret this result as normal/abnormal . GRAN MAT (NEUT) % 76.5 % (test code = 770-8) IMM GRAN % (test code 0.50 % = 3924951054) LYMPH % (test code = 12.2 % 736-9) MONO % (test code = 8.5 % 5905-5) EOS % (test code = 1.6 % 713-8) BASO % (test code = 0.7 % 706-2) GRAN MAT x10^3(ANC) 7.99 10*3/uL 1.99-6.95 H (test code = 7823068995) IMM GRAN x10^3 (test 0.05 10*3/uL 0.00-0.06 code = 7084947783) LYMPH x10^3 (test code 1.27 10*3/uL 1.09-3.23 = 731-0) MONO x10^3 (test code 0.89 10*3/uL 0.36-1.02 = 742-7) EOS x10^3 (test code = 0.17 10*3/uL 0.06-0.53 711-2) BASO x10^3 (test code 0.07 10*3/uL 0.01-0.09 = 704-7) Lab Interpretation Abnormal (test code = 77890-8) [facility] WITH [id number] 22:35:47 Test Item Value Reference Range Interpretation Comments WBC (test code = See_Comment [Automated 8790-2) message] The sy stem which generated this result transmitted reference range : 4.20 - 10.70 10*3/?L. The reference range was not used to interpret this result as normal/abnormal . RBC (test code = See_Comment L [Automated 789-8) message] The sy stem which generated this result transmitted reference range : 4.26 - 5.52 10*6/?L. The reference range was not used to interpret this result as normal/abnormal . HGB (test code = 13.2 g/dL 12.2-16.4 718-7) HCT (test code = 39.2 % 38.4-49.3 4544-3) MCV (test code = 93.1 fL 81.7-95.6 787-2) MCH (test code = 31.4 pg 26.1-32.7 785-6) MCHC (test code = 33.7 g/dL 31.2-35.0 786-4) RDW-SD (test code = 50.9 fL 38.5-51.6 47164-7) RDW-CV (test code = 14.7 % 12.1-15.4 788-0) PLT (test code = See_Comment [Automated 777-3) message] The sy stem which generated this result transmitted reference range : 150 - 328 10*3/ ?L. The reference r shayna was not used to interpret this result as normal/abnormal . MPV (test code = 10.6 fL 9.8-13.0 65320-7) NRBC/100 WBC (test See_Comment [Automat ed code = 6148831979) message] The system which generated this result transmitted reference range : 0.0 - 10.0 /100 WBCs. The refer ence range was not u sed to interpret th is result as normal/abnormal . NRBC x10^3 (test code See_Comment [Auto mated = 8159096331) message] The s ystem which generated this result transmitted reference range : 10*3/?L. The reference range was not used to interpret this result as normal/abnormal . GRAN MAT (NEUT) % 76.5 % (test code = 770-8) IMM GRAN % (test code 0.50 % = 4094559248) LYMPH % (test code = 12.2 % 736-9) MONO % (test code = 8.5 % 5905-5) EOS % (test code = 1.6 % 713-8) BASO % (test code = 0.7 % 706-2) GRAN MAT x10^3(ANC) 7.99 10*3/uL 1.99-6.95 H (test code = 9979467389) IMM GRAN x10^3 (test 0.05 10*3/uL 0.00-0.06 code = 7013959186) LYMPH x10^3 (test code 1.27 10*3/uL 1.09-3.23 = 731-0) MONO x10^3 (test code 0.89 10*3/uL 0.36-1.02 = 742-7) EOS x10^3 (test code = 0.17 10*3/uL 0.06-0.53 711-2) BASO x10^3 (test code 0.07 10*3/uL 0.01-0.09 = 704-7) Lab Interpretation Abnormal (test code = 31123-2) [facility]. METABOLIC PANEL ([id number])2021-02-04 20:24:39 Test Item Value Reference Range Interpretation Comments NA (test code = 136 mmol/L 135-145 1171027657) K (test code = 4.2 mmol/L 3.5-5.0 8621979750) CL (test code = 102 mmol/L 98-108 1059533157) CO2 TOTAL (test code = 21 mmol/L 23-31 L 7865327283) AGAP (test code = 2-16 5938281709) BUN (test code = 27 mg/dL 7-23 H 1980494310) GLUCOSE (test code = 133 mg/dL 70-110 H 5887089352) CREATININE (test code = 1.27 mg/dL 0.60-1.25 H 7764745259) TOTAL BILI (test code = 1.6 mg/dL 0.1-1.1 H 1454942664) CALCIUM (test code = 9.1 mg/dL 8.6-10.6 9084268549) T PROTEIN (test code = 6.9 g/dL 6.3-8.2 3565319529) ALBUMIN (test code = 3.7 g/dL 3.5-5.0 2741160837) ALK PHOS (test code = 78 U/L 34-122 6705153527) ALTv (test code = 34 U/L 5-50 1742-6) AST(SGOT) (test code = 43 U/L 13-40 H 3896462232) eGFR (test code = mL/min/1.73m2 2108315365) DANIEL (test code = DANIEL) Association of [...] tests). Lab Interpretation Abnormal (test code = 23020-1) [facility] METABOLIC PANEL (02941)2021-02-04 20:24:39 Test Item Value Reference Range Interpretation Comments NA (test code = 136 mmol/L 135-145 2026424881) K (test code = 4.2 mmol/L 3.5-5.0 0597582424) CL (test code = 102 mmol/L 98-108 5063773406) CO2 TOTAL (test code = 21 mmol/L 23-31 L 1722633480) AGAP (test code = 2-16 8524112399) BUN (test code = 27 mg/dL 7-23 H 7419468010) GLUCOSE (test code = 133 mg/dL 70-110 H 5746396756) CREATININE (test code = 1.27 mg/dL 0.60-1.25 H 0617137430) TOTAL BILI (test code = 1.6 mg/dL 0.1-1.1 H 9006129562) CALCIUM (test code = 9.1 mg/dL 8.6-10.6 3994410422) T PROTEIN (test code = 6.9 g/dL 6.3-8.2 0523100596) ALBUMIN (test code = 3.7 g/dL 3.5-5.0 3139757312) ALK PHOS (test code = 78 U/L 34-122 5052150519) ALTv (test code = 34 U/L 5-50 1742-6) AST(SGOT) (test code = 43 U/L 13-40 H 7898058305) eGFR (test code = mL/min/1.73m2 3061730392) DANIEL (test code = DANIEL) Association of [...] tests). Lab Interpretation Abnormal (test code = 91001-2) [facility]11 Test Item Value Reference Range Interpretation Comments APPEARANCE (test code = Clear Clear 9466374125) COLOR (test code = Yellow Yellow 6238040472) PH (test code = 4.8-8.0 9239579126) SP GRAVITY (test code = 1.003-1.030 1159450583) GLU U QUAL (test code = Normal Normal 9698711364) BLOOD (test code = Negative Negative 7654871854) KETONES (test code = Negative Negative 0783536695) PROTEIN (test code = Negative Negative 2887-8) UROBILIN (test code = Normal Normal 2216849307) BILIRUBIN (test code = Negative Negative 6292278600) NITRITE (test code = Negative Negative 9743803613) LEUK DANELLE (test code = Negative Negative 5077674534) RBC/HPF (test code = See_Comment [Autom ated message] 3276002773) The system [employer] generated this result transmitted ref erence range: 0 - 3 HP F. The reference range was not used to int erpret this result as normal/abnormal . WBC/HPF (test code = See_Comment [Autom ated message] 3410988887) The system [employer] generated this result transmitted ref erence range: 0 - 5 HP F. The reference range was not used to int erpret this result as normal/abnormal . BACTERIA (test code = Negative Negative 4817779624) MUCOUS (test code = Slight Negative LPF A 1808635755) HYAL CAST (test code = See_Comment H [Aut omated message] 6303636881) The system [employer] generated this result transmitted ref erence range: <=2 LPF. The reference range was not used to int erpret this result as normal/abnormal . Lab Interpretation (test Abnormal code = 83521-2) [facility]11 Test Item Value Reference Range Interpretation Comments APPEARANCE (test code = Clear Clear 9677571633) COLOR (test code = Yellow Yellow 4386414612) PH (test code = 4.8-8.0 1503901761) SP GRAVITY (test code = 1.003-1.030 4244240170) GLU U QUAL (test code = Normal Normal 6821526792) BLOOD (test code = Negative Negative 2616517555) KETONES (test code = Negative Negative 4290337109) PROTEIN (test code = Negative Negative 2887-8) UROBILIN (test code = Normal Normal 1000074233) BILIRUBIN (test code = Negative Negative 7198842606) NITRITE (test code = Negative Negative 2205941659) LEUK DANELLE (test code = Negative Negative 4638273895) RBC/HPF (test code = See_Comment [Autom ated message] 6166527103) The system [employer] generated this result transmitted ref erence range: 0 - 3 HP F. The reference range was not used to int erpret this result as normal/abnormal . WBC/HPF (test code = See_Comment [Autom ated message] 0400407615) The system [employer] generated this result transmitted ref erence range: 0 - 5 HP F. The reference range was not used to int erpret this result as normal/abnormal . BACTERIA (test code = Negative Negative 2485470460) MUCOUS (test code = Slight Negative LPF A 8147505664) HYAL CAST (test code = See_Comment H [Aut omated message] 0383835118) The system [employer] generated this result transmitted ref erence range: <=2 LPF. The reference range was not used to int erpret this result as normal/abnormal . Lab Interpretation (test Abnormal code = 75992-3) [facility]ID [facility]2021-02-04 19:49:28 Test Item Value Reference Range Interpretation Comments SARS-CoV-2 Rapid ID NOW Positive Not Detected A (test code = 44355-2) DANIEL (test code = DANIEL) ID NOW COVID-19 Assay is an isothermal nucleic acid amplification test intended for the qualitative detection of nucleic acid from SARS-CoV-2 viral RNA in nasopharyngeal (TUBE PUSHER) specimens. It is used under Emergency Use [...] indicated. Lab Interpretation Abnormal (test code = 06414-1) [facility]2021-02-04 19:49:28 Test Item Value Reference Range Interpretation Comments SARS-CoV-2 Rapid ID NOW Positive Not Detected A (test code = 71834-2) DANIEL (test code = DANIEL) ID NOW COVID-19 Assay is an isothermal nucleic acid amplification test intended for the qualitative detection of nucleic acid from SARS-CoV-2 viral RNA in nasopharyngeal (TUBE PUSHER) specimens. It is used under Emergency Use [...] indicated. Lab Interpretation Abnormal (test code = 29709-0) [facility] WITH [id number] 19:40:04 Test Item Value Reference Range Interpretation Comments WBC (test code = See_Comment [Automated 1790-2) message] The sy stem which generated this [...] RDW-SD (test code = 45.6 fL 38.5-51.6 49035-0) RDW-CV (test code = 14.1 % 12.1-15.4 788-0) PLT (test code = See_Comment [Automated 777-3) message] The sy stem which generated this result transmitted reference range : 150 - 328 10*3/ ?L. The reference r shayna was not used to interpret this result as normal/abnormal . MPV (test code = 10.8 fL 9.8-13.0 78555-3) NRBC/100 WBC (test See_Comment [Automat ed code = 5761289322) message] The system which generated this result transmitted reference range : 0.0 - 10.0 /100 WBCs. The refer ence range was not u sed to interpret th is result as normal/abnormal . NRBC x10^3 (test code <0.01 See_Comment [Auto mated = 6211899414) message] The s ystem which generated this result transmitted reference range : 10*3/?L. The reference range was not used to interpret this result as normal/abnormal . GRAN MAT (NEUT) % 73.3 % (test code = 770-8) IMM GRAN % (test code 0.60 % = 7313650230) LYMPH % (test code = 10.4 % 736-9) MONO % (test code = 15.2 % 5905-5) EOS % (test code = 0.1 % 713-8) BASO % (test code = 0.4 % 706-2) GRAN MAT x10^3(ANC) 6.04 10*3/uL 1.99-6.95 (test code = 7214917554) IMM GRAN x10^3 (test 0.05 10*3/uL 0.00-0.06 code = 8318823557) LYMPH x10^3 (test code 0.86 10*3/uL 1.09-3.23 L = 731-0) MONO x10^3 (test code 1.25 10*3/uL 0.36-1.02 H = 742-7) EOS x10^3 (test code = <0.03 0.06-0.53 L 711-2) BASO x10^3 (test code 0.03 10*3/uL 0.01-0.09 = 704-7) Lab Interpretation Abnormal (test code = 23161-9) [facility] WITH [id number] 19:40:04 Test Item Value Reference Range Interpretation [...] RDW-SD (test code = 45.6 fL 38.5-51.6 62866-4) RDW-CV (test code = 14.1 % 12.1-15.4 788-0) PLT (test code = See_Comment [Automated 777-3) message] The sy stem which generated this result transmitted reference range : 150 - 328 10*3/ ?L. The reference r shayna was not used to interpret this result as normal/abnormal . MPV (test code = 10.8 fL 9.8-13.0 56639-3) NRBC/100 WBC (test See_Comment [Automat ed code = 0074766729) message] The system which generated this result transmitted reference range : 0.0 - 10.0 /100 WBCs. The refer ence range was not u sed to interpret th is result as normal/abnormal . NRBC x10^3 (test code <0.01 See_Comment [Auto mated = 0417611420) message] The s ystem which generated this result transmitted reference range : 10*3/?L. The reference range was not used to interpret this result as normal/abnormal . GRAN MAT (NEUT) % 73.3 % (test code = 770-8) IMM GRAN % (test code 0.60 % = 7202293445) LYMPH % (test code = 10.4 % 736-9) MONO % (test code = 15.2 % 5905-5) EOS % (test code = 0.1 % 713-8) BASO % (test code = 0.4 % 706-2) GRAN MAT x10^3(ANC) 6.04 10*3/uL 1.99-6.95 (test code = 2271889676) IMM GRAN x10^3 (test 0.05 10*3/uL 0.00-0.06 code = 8687376449) LYMPH x10^3 (test code 0.86 10*3/uL 1.09-3.23 L = 731-0) MONO x10^3 (test code 1.25 10*3/uL 0.36-1.02 H = 742-7) EOS x10^3 (test code = <0.03 0.06-0.53 L 711-2) BASO x10^3 (test code 0.03 10*3/uL 0.01-0.09 = 704-7) Lab Interpretation Abnormal (test code = 44088-8) [facility] [id number] 14:46:00 Test Item Value Reference Range Interpretation Comments Troponin-I (test code no gt See_Comment [Auto mated message] The = Troponin-I) system which g enerated this result transmit danica reference range : <=0.40. The reference r shayna was not used to interpr et this result as zara l/abnormal. [facility] [id number] 14:46:00 Test Item Value Reference Range Interpretation Comments Troponin-I (test code no gt See_Comment [Auto mated message] The = Troponin-I) system which g enerated this result transmit danica reference range : <=0.40. The reference r shayna was not used to interpr et this result as zara l/abnormal. [facility] [id number] 14:46:00 Test Item Value Reference Range Interpretation Comments Troponin-I (test code no gt See_Comment [Auto mated message] The = Troponin-I) system which g enerated this result transmit danica reference range : <=0.40. The reference r shayna was not used to interpr et this result as zara l/abnormal. [facility] OFCSDKM5501-00-14 14:46:00 Test Item Value Reference Range Interpretation Comments Troponin-I (test code no gt See_Comment [Auto mated message] The = Troponin-I) system which g enerated this result transmit danica reference range : <=0.40. The reference r shayna was not used to interpr et this result as zara l/abnormal. [facility] [id number] 14:46:00 Test Item Value Reference Range Interpretation Comments Troponin-I (test code no gt See_Comment [Auto mated message] The = Troponin-I) system which g enerated this result transmit danica reference range : <=0.40. The reference r shayna was not used to interpr et this result as zara l/abnormal. [facility] [id number] 08:56:00 Test Item Value Reference Range Interpretation Comments Troponin-I (test code no gt See_Comment [Auto mated message] The = Troponin-I) system which g enerated this result transmit danica reference range : <=0.40. The reference r shayna was not used to interpr et this result as zara l/abnormal. [facility]2019-12-08 08:56:00 Test Item Value Reference Range Interpretation Comments Glucose Lvl (test code = Glucose Lvl) 263 70-99 [facility]2019-12-08 08:56:00 Test Item Value Reference Range Interpretation Comments BUN (test code = BUN) 15 7-22 [facility]2019-12-08 08:56:00 Test Item Value Reference Range Interpretation Comments Creatinine Lvl (test code = Creatinine 0.88 0.50-1.40 Lvl) [facility]2019-12-08 08:56:00 Test Item Value Reference Range Interpretation Comments Sodium Lvl (test code = Sodium Lvl) 142 135-145 [facility]2019-12-08 08:56:00 Test Item Value Reference Range Interpretation Comments Potassium Lvl (test code = Potassium 3.7 3.5-5.1 Lvl) [facility]2019-12-08 08:56:00 Test Item Value Reference Range Interpretation Comments Chloride Lvl (test code = Chloride Lvl) 111 95-109 [facility]2019-12-08 08:56:00 Test Item Value Reference Range Interpretation Comments CO2 (test code = CO2) 24 24-32 [facility]2019-12-08 08:56:00 Test Item Value Reference Range Interpretation Comments Calcium Lvl (test code = Calcium Lvl) 8.4 8.5-10.5 [facility]2019-12-08 08:56:00 Test Item Value Reference Range Interpretation Comments eGFR (test code = eGFR) 79 [facility]2019-12-08 08:56:00 Test Item Value Reference Range Interpretation Comments AGAP (test code = AGAP) 10.7 10.0-20.0 [facility] 08:56:00 Test Item Value Reference Range Interpretation Comments WBC (test code = WBC) 7.6 3.7-10.4 [facility]WpvgxjjEMGNEIAZPW9946-04-50 08:56:00 Test Item Value Reference Range Interpretation Comments RBC (test code = RBC) 4.56 4.70-6.10 [facility]roeGytbpvvVGOWJKDYOA2881-28-06 08:56:00 Test Item Value Reference Range Interpretation Comments Hgb (test code = Hgb) 13.8 14.0-18.0 [facility]roeWgmwuqbCLNCUCMNNP0202-71-89 08:56:00 Test Item Value Reference Range Interpretation Comments Hct (test code = Hct) 41.0 42.0-54.0 [facility]roeBsdpkntWFLCJVFNHV2435-98-19 08:56:00 Test Item Value Reference Range Interpretation Comments MCV (test code = MCV) 89.9 80.0-94.0 [facility]roeWmmwpkhWILNZWILWB6098-61-26 08:56:00 Test Item Value Reference Range Interpretation Comments MCH (test code = MCH) 30.3 pg 27.0-31.0 [facility]roeYljvhauJJNVYVTNVD8682-92-98 08:56:00 Test Item Value Reference Range Interpretation Comments MCHC (test code = MCHC) 33.7 32.0-36.0 [facility]roeNhcbewiVKEROJWEOB1402-38-24 08:56:00 Test Item Value Reference Range Interpretation Comments RDW (test code = RDW) 14.5 11.5-14.5 [facility]roeTaltythTNCNPZOJRP9197-80-95 08:56:00 Test Item Value Reference Range Interpretation Comments Platelet (test code = Platelet) 243 133-450 [facility]roeKxhxlciRNJWUYDDXJ0031-81-29 08:56:00 Test Item Value Reference Range Interpretation Comments MPV (test code = MPV) 8.6 7.4-10.4 [facility]roeQamirjmJGIPYXVOYN9234-25-06 08:56:00 Test Item Value Reference Range Interpretation Comments Segs (test code = Segs) 67.4 45.0-75.0 [facility]roeFznexkpJGVYGTLYPF6380-55-51 08:56:00 Test Item Value Reference Range Interpretation Comments Lymphocytes (test code = Lymphocytes) 19.8 20.0-40.0 [facility]roeCgkljylWZXOFNGKFO0903-46-38 08:56:00 Test Item Value Reference Range Interpretation Comments Monocytes (test code = Monocytes) 9.8 2.0-12.0 [facility]roeOpftdhhOPYQUMVUZG4172-91-72 08:56:00 Test Item Value Reference Range Interpretation Comments Eosinophils (test code = 2.0 See_Comment [A utomated message] The Eosinophils) system which ge nerated this result tra nsmitted reference range : <=4.0. The reference r shayna was not used to int erpret this result as normal/abnormal . [facility]roeUyqdvgaNCSIZZJMWS1139-48-67 08:56:00 Test Item Value Reference Range Interpretation Comments Basophils (test code = 1.0 See_Comment [Aut omated message] The Basophils) system which ge nerated this result tra nsmitted reference range : <=1.0. The reference r shayna was not used to int erpret this result as normal/abnormal . [facility]roeKqyfnafWNTASFXABV7118-59-99 08:56:00 Test Item Value Reference Range Interpretation Comments Neutrophils # (test code = Neutrophils 5.1 1.5-8.1 #) [facility]roeMcmrccnVFXJWSCUKI5968-55-92 08:56:00 Test Item Value Reference Range Interpretation Comments Lymphocytes # (test code = Lymphocytes 1.5 1.0-5.5 #) [facility]roeSoinzkuCZNYSHQFYP3285-93-32 08:56:00 Test Item Value Reference Range Interpretation Comments Monocytes # (test code 0.7 See_Comment [Aut omated message] The = Monocytes #) system which generated this result tra nsmitted reference range : <=0.8. The reference r shayna was not used to int erpret this result as normal/abnormal . [facility]roeLsrogorWVUTARLCFA4045-39-10 08:56:00 Test Item Value Reference Range Interpretation Comments Eosinophils # (test code 0.2 See_Comment [A utomated message] The = Eosinophils #) system whic h generated this result tra nsmitted reference range : <=0.5. The reference r shayna was not used to int erpret this result as normal/abnormal . [facility]roeYfdnzjpNSHCZQSCHP9655-48-38 08:56:00 Test Item Value Reference Range Interpretation Comments Basophils # (test code 0.1 See_Comment [Aut omated message] The = Basophils #) system which generated this result tra nsmitted reference range : <=0.2. The reference r shayna was not used to int erpret this result as normal/abnormal . [facility]yx[facility]MOQBHS495[facility]72-70 08:56:00 Test Item Value Reference Range Interpretation Comments CHD Risk (test code = CHD Risk) 4.74 1 4.00-7.30 [facility]CvgdoqrRKATEC5230-10-06 08:56:00 Test Item Value Reference Range Interpretation Comments Chol (test code = Chol) 161 [facility]TzxnasxBJODSP1309-88-02 08:56:00 Test Item Value Reference Range Interpretation Comments Trig (test code = Trig) 109 [facility] CenterEyyoaxkNJUDRH9100-36-88 08:56:00 Test Item Value Reference Range Interpretation Comments HDL (test code = HDL) 34 [facility] CenterLpuzkuwRESHIA2435-16-76 08:56:00 Test Item Value Reference Range Interpretation Comments LDL (Calculated) (test code = LDL 105 (Calculated)) [facility] CenterZemxkbmZFEZDS1755-81-88 08:56:00 Test Item Value Reference Range Interpretation Comments VLDL (test code = VLDL) 22 1 [facility] MZLUHHWUJ8110-65-66 08:56:00 Test Item Value Reference Range Interpretation Comments Hgb A1C (test code = Hgb A1C) 8.9 [facility] NWSIFPG8832-64-07 08:56:00 Test Item Value Reference Range Interpretation Comments Troponin-I (test code no gt See_Comment [Auto mated message] The = Troponin-I) system which g enerated this result transmit danica reference range : <=0.40. The reference r shayna was not used to interpr et this result as zara l/abnormal. [facility] UJFHD8787-75-43 08:56:00 Test Item Value Reference Range Interpretation Comments Glucose Lvl (test code = Glucose Lvl) 263 70-99 [facility] [id number] 08:56:00 Test Item Value Reference Range Interpretation Comments BUN (test code = BUN) 15 7-22 [facility] [id number] 08:56:00 Test Item Value Reference Range Interpretation Comments Creatinine Lvl (test code = Creatinine 0.88 0.50-1.40 Lvl) [facility] [id number] 08:56:00 Test Item Value Reference Range Interpretation Comments Sodium Lvl (test code = Sodium Lvl) 142 135-145 [facility] DZYJG0479-61-35 08:56:00 Test Item Value Reference Range Interpretation Comments Potassium Lvl (test code = Potassium 3.7 3.5-5.1 Lvl) [facility] [id number] 08:56:00 Test Item Value Reference Range Interpretation Comments Chloride Lvl (test code = Chloride Lvl) 111 95-109 [facility]2019-12-08 08:56:00 Test Item Value Reference Range Interpretation Comments CO2 (test code = CO2) 24 24-32 [facility]2019-12-08 08:56:00 Test Item Value Reference Range Interpretation Comments Calcium Lvl (test code = Calcium Lvl) 8.4 8.5-10.5 [facility]2019-12-08 08:56:00 Test Item Value Reference Range Interpretation Comments eGFR (test code = eGFR) 79 [facility]2019-12-08 08:56:00 Test Item Value Reference Range Interpretation Comments AGAP (test code = AGAP) 10.7 10.0-20.0 [facility]roeIkdjrrrVJKRKNVOHZ8197-04-77 08:56:00 Test Item Value Reference Range Interpretation Comments WBC (test code = WBC) 7.6 3.7-10.4 [facility]roeMoexacoPOAQHZHOQI5584-21-93 08:56:00 Test Item Value Reference Range Interpretation Comments RBC (test code = RBC) 4.56 4.70-6.10 [facility]roeEtazdwgJFQEZROLHM1587-58-70 08:56:00 Test Item Value Reference Range Interpretation Comments Hgb (test code = Hgb) 13.8 14.0-18.0 [facility]roeDtxpsudZQAFPTBZMF9006-18-04 08:56:00 Test Item Value Reference Range Interpretation Comments Hct (test code = Hct) 41.0 42.0-54.0 [facility]roeOxxswykQDNWUWPGGO8812-18-55 08:56:00 Test Item Value Reference Range Interpretation Comments MCV (test code = MCV) 89.9 80.0-94.0 [facility]roeMmlwelqWJJUVMNWBX8113-40-69 08:56:00 Test Item Value Reference Range Interpretation Comments MCH (test code = MCH) 30.3 pg 27.0-31.0 [facility]roeTlxzdbcURZQFPDZWU3149-46-37 08:56:00 Test Item Value Reference Range Interpretation Comments MCHC (test code = MCHC) 33.7 32.0-36.0 [facility]roeXjmnvajGZVCCWMHIC2795-17-91 08:56:00 Test Item Value Reference Range Interpretation Comments RDW (test code = RDW) 14.5 11.5-14.5 [facility]roeAksmpcbJDPBYWXRGU5765-91-96 08:56:00 Test Item Value Reference Range Interpretation Comments Platelet (test code = Platelet) 243 133-450 [facility]roeGkiqyunCJUNUITAFP1872-06-21 08:56:00 Test Item Value Reference Range Interpretation Comments MPV (test code = MPV) 8.6 7.4-10.4 [facility]roeRxvdtxuWPEUZVGAER2396-17-96 08:56:00 Test Item Value Reference Range Interpretation Comments Segs (test code = Segs) 67.4 45.0-75.0 [facility]roeLduuvhnBLXLMQMYOA1583-86-77 08:56:00 Test Item Value Reference Range Interpretation Comments Lymphocytes (test code = Lymphocytes) 19.8 20.0-40.0 [facility]roeBwbqowqXUPCCCUZIB9481-38-52 08:56:00 Test Item Value Reference Range Interpretation Comments Monocytes (test code = Monocytes) 9.8 2.0-12.0 [facility]roeFoxvfjyFWQNMMKEZW2966-23-08 08:56:00 Test Item Value Reference Range Interpretation Comments Eosinophils (test code = 2.0 See_Comment [A utomated message] The Eosinophils) system which ge nerated this result tra nsmitted reference range : <=4.0. The reference r shayna was not used to int erpret this result as normal/abnormal . [facility]roeIjqayhhUHDCYWMRCL8354-37-78 08:56:00 Test Item Value Reference Range Interpretation Comments Basophils (test code = 1.0 See_Comment [Aut omated message] The Basophils) system which ge nerated this result tra nsmitted reference range : <=1.0. The reference r shayna was not used to int erpret this result as normal/abnormal . [facility]roeXrqbuceXWZZRTRKSM8005-03-95 08:56:00 Test Item Value Reference Range Interpretation Comments Neutrophils # (test code = Neutrophils 5.1 1.5-8.1 #) [facility]roeFuxafosDIDUFJNMQW1760-65-06 08:56:00 Test Item Value Reference Range Interpretation Comments Lymphocytes # (test code = Lymphocytes 1.5 1.0-5.5 #) [facility]roeQlnsxzvNDMTWSXRZI3001-53-52 08:56:00 Test Item Value Reference Range Interpretation Comments Monocytes # (test code 0.7 See_Comment [Aut omated message] The = Monocytes #) system which generated this result tra nsmitted reference range : <=0.8. The reference r shayna was not used to int erpret this result as normal/abnormal . [facility] CenterBihmarbWPCZQPWRNZ6540-84-50 08:56:00 Test Item Value Reference Range Interpretation Comments Eosinophils # (test code 0.2 See_Comment [A utomated message] The = Eosinophils #) system whic h generated this result tra nsmitted reference range : <=0.5. The reference r shayna was not used to int erpret this result as normal/abnormal . [facility] CenterLnytiklOKMMGMBHPH0881-46-64 08:56:00 Test Item Value Reference Range Interpretation Comments Basophils # (test code 0.1 See_Comment [Aut omated message] The = Basophils #) system which generated this result tra nsmitted reference range : <=0.2. The reference r shayna was not used to int erpret this result as normal/abnormal . [facility] CenterMomoenbVMSASL1742-22-41 08:56:00 Test Item Value Reference Range Interpretation Comments CHD Risk (test code = CHD Risk) 4.74 1 4.00-7.30 [facility] CenterWrpjnipOXSVUA7919-29-65 08:56:00 Test Item Value Reference Range Interpretation Comments Chol (test code = Chol) 161 [facility] CenterCpmnaziXHCPCJ1563-92-21 08:56:00 Test Item Value Reference Range Interpretation Comments Trig (test code = Trig) 109 [facility] CenterUjtsfjaOGAPHU9377-85-79 08:56:00 Test Item Value Reference Range Interpretation Comments HDL (test code = HDL) 34 [facility] CenterEzkaxfhDJTVUI2221-57-34 08:56:00 Test Item Value Reference Range Interpretation Comments LDL (Calculated) (test code = LDL 105 (Calculated)) [facility]KlbvsnvAYIDMT3691-69-80 08:56:00 Test Item Value Reference Range Interpretation Comments VLDL (test code = VLDL) 22 1 [facility] CenterannSPECIAL OVCRURXMW0227-71-76 08:56:00 Test Item Value Reference Range Interpretation Comments Hgb A1C (test code = Hgb A1C) 8.9 [facility] [id number] 08:56:00 Test Item Value Reference Range Interpretation Comments Troponin-I (test code no gt See_Comment [Auto mated message] The = Troponin-I) system which g enerated this result transmit danica reference range : <=0.40. The reference r shayna was not used to interpr et this result as zara l/abnormal. [facility]2019-12-08 08:56:00 Test Item Value Reference Range Interpretation Comments Glucose Lvl (test code = Glucose Lvl) 263 70-99 [facility]2019-12-08 08:56:00 Test Item Value Reference Range Interpretation Comments BUN (test code = BUN) 15 7-22 [facility]2019-12-08 08:56:00 Test Item Value Reference Range Interpretation Comments Creatinine Lvl (test code = Creatinine 0.88 0.50-1.40 Lvl) [facility]2019-12-08 08:56:00 Test Item Value Reference Range Interpretation Comments Sodium Lvl (test code = Sodium Lvl) 142 135-145 [facility]2019-12-08 08:56:00 Test Item Value Reference Range Interpretation Comments Potassium Lvl (test code = Potassium 3.7 3.5-5.1 Lvl) [facility]2019-12-08 08:56:00 Test Item Value Reference Range Interpretation Comments Chloride Lvl (test code = Chloride Lvl) 111 95-109 [facility]2019-12-08 08:56:00 Test Item Value Reference Range Interpretation Comments CO2 (test code = CO2) 24 24-32 [facility]2019-12-08 08:56:00 Test Item Value Reference Range Interpretation Comments Calcium Lvl (test code = Calcium Lvl) 8.4 8.5-10.5 [facility]2019-12-08 08:56:00 Test Item Value Reference Range Interpretation Comments eGFR (test code = eGFR) 79 [facility]2019-12-08 08:56:00 Test Item Value Reference Range Interpretation Comments AGAP (test code = AGAP) 10.7 10.0-20.0 [facility]roeBlfkorrAVEXDAYTJC1152-58-55 08:56:00 Test Item Value Reference Range Interpretation Comments WBC (test code = WBC) 7.6 3.7-10.4 [facility]roeChgvzxnEGUVKLERZC8191-46-60 08:56:00 Test Item Value Reference Range Interpretation Comments RBC (test code = RBC) 4.56 4.70-6.10 [facility]roeMqqoyujSHLCFZWZZM9058-27-13 08:56:00 Test Item Value Reference Range Interpretation Comments Hgb (test code = Hgb) 13.8 14.0-18.0 [facility]roeHqadtpbCUSMUUPSCQ5870-82-83 08:56:00 Test Item Value Reference Range Interpretation Comments Hct (test code = Hct) 41.0 42.0-54.0 [facility]roeUoqndvoQNVZIQKPCU7999-01-72 08:56:00 Test Item Value Reference Range Interpretation Comments MCV (test code = MCV) 89.9 80.0-94.0 [facility]roeWycpqbePOJUHPOYPT3470-98-19 08:56:00 Test Item Value Reference Range Interpretation Comments MCH (test code = MCH) 30.3 pg 27.0-31.0 [facility]roeQmlnytlJJLDETLJBX5334-15-62 08:56:00 Test Item Value Reference Range Interpretation Comments MCHC (test code = MCHC) 33.7 32.0-36.0 [facility]roeXigaxbhCSJJZZMVKQ4739-06-28 08:56:00 Test Item Value Reference Range Interpretation Comments RDW (test code = RDW) 14.5 11.5-14.5 [facility]roeHexscxtCAINIRVMMM2248-07-90 08:56:00 Test Item Value Reference Range Interpretation Comments Platelet (test code = Platelet) 243 133-450 [facility]roeXwcidnaGRTOLJTAPL9069-10-45 08:56:00 Test Item Value Reference Range Interpretation Comments MPV (test code = MPV) 8.6 7.4-10.4 [facility]roeRgunwpmOAABGZNPRZ4770-78-53 08:56:00 Test Item Value Reference Range Interpretation Comments Segs (test code = Segs) 67.4 45.0-75.0 [facility]roeSuywthzOGCPTKDVQK5608-90-05 08:56:00 Test Item Value Reference Range Interpretation Comments Lymphocytes (test code = Lymphocytes) 19.8 20.0-40.0 [facility]roeKadmpkeXKXTBKKHIW4217-31-93 08:56:00 Test Item Value Reference Range Interpretation Comments Monocytes (test code = Monocytes) 9.8 2.0-12.0 [facility]roeHqyuiwpPARYMRAHWX4364-89-83 08:56:00 Test Item Value Reference Range Interpretation Comments Eosinophils (test code = 2.0 See_Comment [A utomated message] The Eosinophils) system which ge nerated this result tra nsmitted reference range : <=4.0. The reference r shayna was not used to int erpret this result as normal/abnormal . [facility]roeLcssmgrOTDEYHPNNQ8067-44-68 08:56:00 Test Item Value Reference Range Interpretation Comments Basophils (test code = 1.0 See_Comment [Aut omated message] The Basophils) system which ge nerated this result tra nsmitted reference range : <=1.0. The reference r shayna was not used to int erpret this result as normal/abnormal . [facility]roeHvgqjdsCUUSXYVMBA4198-59-55 08:56:00 Test Item Value Reference Range Interpretation Comments Neutrophils # (test code = Neutrophils 5.1 1.5-8.1 #) [facility] ConroeZkcxutoAGFBCZBOMA7324-76-61 08:56:00 Test Item Value Reference Range Interpretation Comments Lymphocytes # (test code = Lymphocytes 1.5 1.0-5.5 #) [facility]roeSbftsjjADABWIKPEN3964-49-02 08:56:00 Test Item Value Reference Range Interpretation Comments Monocytes # (test code 0.7 See_Comment [Aut omated message] The = Monocytes #) system which generated this result tra nsmitted reference range : <=0.8. The reference r shayna was not used to int erpret this result as normal/abnormal . [facility]roeSqpeganRFIOOTNJVP6217-44-96 08:56:00 Test Item Value Reference Range Interpretation Comments Eosinophils # (test code 0.2 See_Comment [A utomated message] The = Eosinophils #) system whic h generated this result tra nsmitted reference range : <=0.5. The reference r shayna was not used to int erpret this result as normal/abnormal . [facility]roeXavhlgvHAOIXFAINC4601-99-26 08:56:00 Test Item Value Reference Range Interpretation Comments Basophils # (test code 0.1 See_Comment [Aut omated message] The = Basophils #) system which generated this result tra nsmitted reference range : <=0.2. The reference r shayna was not used to int erpret this result as normal/abnormal . [facility]GtiotarUQZTZI6473-22-76 08:56:00 Test Item Value Reference Range Interpretation Comments CHD Risk (test code = CHD Risk) 4.74 1 4.00-7.30 [facility] HospitalTiximkmJNGNQG4017-78-73 08:56:00 Test Item Value Reference Range Interpretation Comments Chol (test code = Chol) 161 [facility] HospitalAcfosvsKCAOVH5368-26-68 08:56:00 Test Item Value Reference Range Interpretation Comments Trig (test code = Trig) 109 [facility] CenterKwvuighCIMBXR1595-24-57 08:56:00 Test Item Value Reference Range Interpretation Comments HDL (test code = HDL) 34 [facility] CenterOorwympNQCSJQ9599-37-51 08:56:00 Test Item Value Reference Range Interpretation Comments LDL (Calculated) (test code = LDL 105 (Calculated)) [facility] CenterFwiopdbQWCPAR6021-78-68 08:56:00 Test Item Value Reference Range Interpretation Comments VLDL (test code = VLDL) 22 1 [facility] CenterSPECIAL ETVZMBDEJ1417-63-77 08:56:00 Test Item Value Reference Range Interpretation Comments Hgb A1C (test code = Hgb A1C) 8.9 [facility] CenterCARDIAC DAVKKRT0244-16-69 08:56:00 Test Item Value Reference Range Interpretation Comments Troponin-I (test code no gt See_Comment [Auto mated message] The = Troponin-I) system which g enerated this result transmit danica reference range : <=0.40. The reference r shayna was not used to interpr et this result as zara l/abnormal. [facility]LAST [facility] [id number] 08:56:00 Test Item Value Reference Range Interpretation Comments Glucose Lvl (test code = Glucose Lvl) 263 70-99 [facility] [id number] 08:56:00 Test Item Value Reference Range Interpretation Comments BUN (test code = BUN) 15 7-22 [facility]LAST [facility] [id number] 08:56:00 Test Item Value Reference Range Interpretation Comments Creatinine Lvl (test code = Creatinine 0.88 0.50-1.40 Lvl) [facility]LAST [facility] [id number] 08:56:00 Test Item Value Reference Range Interpretation Comments Sodium Lvl (test code = Sodium Lvl) 142 135-145 [facility] [id number] 08:56:00 Test Item Value Reference Range Interpretation Comments Potassium Lvl (test code = Potassium 3.7 3.5-5.1 Lvl) [facility] CenterExtreme Plastics Plus CDQIK7124-14-82 08:56:00 Test Item Value Reference Range Interpretation Comments Chloride Lvl (test code = Chloride Lvl) 111 95-109 [facility]LAST [facility] [id number] 08:56:00 Test Item Value Reference Range Interpretation Comments CO2 (test code = CO2) 24 24-32 [facility]2019-12-08 08:56:00 Test Item Value Reference Range Interpretation Comments Calcium Lvl (test code = Calcium Lvl) 8.4 8.5-10.5 [facility]2019-12-08 08:56:00 Test Item Value Reference Range Interpretation Comments eGFR (test code = eGFR) 79 [facility]2019-12-08 08:56:00 Test Item Value Reference Range Interpretation Comments AGAP (test code = AGAP) 10.7 10.0-20.0 [facility]roeSdadwogMNLDCIFNQF0750-67-07 08:56:00 Test Item Value Reference Range Interpretation Comments WBC (test code = WBC) 7.6 3.7-10.4 [facility]roeWwhkwqzPELZIROGBN3070-93-15 08:56:00 Test Item Value Reference Range Interpretation Comments RBC (test code = RBC) 4.56 4.70-6.10 [facility]roeIwccntiHQWVNPZHFG7178-34-53 08:56:00 Test Item Value Reference Range Interpretation Comments Hgb (test code = Hgb) 13.8 14.0-18.0 [facility]roeIonulcrCWFKWZHLZL5926-02-59 08:56:00 Test Item Value Reference Range Interpretation Comments Hct (test code = Hct) 41.0 42.0-54.0 [facility]roeLsnppwpNLLQFBBWOT3798-95-26 08:56:00 Test Item Value Reference Range Interpretation Comments MCV (test code = MCV) 89.9 80.0-94.0 [facility]roeAnrodoxLXDBWBILKN9751-31-39 08:56:00 Test Item Value Reference Range Interpretation Comments MCH (test code = MCH) 30.3 pg 27.0-31.0 [facility]roeLcqczztZKJZEUCSRF1934-26-26 08:56:00 Test Item Value Reference Range Interpretation Comments MCHC (test code = MCHC) 33.7 32.0-36.0 [facility]roeHwuagcuNZQGHEHTNO7928-29-96 08:56:00 Test Item Value Reference Range Interpretation Comments RDW (test code = RDW) 14.5 11.5-14.5 [facility]roeRbbthrzVOVMLMSLGQ9950-18-04 08:56:00 Test Item Value Reference Range Interpretation Comments Platelet (test code = Platelet) 243 133-450 [facility]roeLhhuigpPLKODAENVG3088-02-56 08:56:00 Test Item Value Reference Range Interpretation Comments MPV (test code = MPV) 8.6 7.4-10.4 [facility]roeZhsmosaZPEJYNFCTY3821-01-73 08:56:00 Test Item Value Reference Range Interpretation Comments Segs (test code = Segs) 67.4 45.0-75.0 [facility]roeUsddfynKHYTNBTHOQ3323-16-39 08:56:00 Test Item Value Reference Range Interpretation Comments Lymphocytes (test code = Lymphocytes) 19.8 20.0-40.0 [facility]roeNqdqjzaTUSCUVBRCY6946-19-24 08:56:00 Test Item Value Reference Range Interpretation Comments Monocytes (test code = Monocytes) 9.8 2.0-12.0 [facility]roeVqjdwaqMPHEIALOOX5922-59-05 08:56:00 Test Item Value Reference Range Interpretation Comments Eosinophils (test code = 2.0 See_Comment [A utomated message] The Eosinophils) system which ge nerated this result tra nsmitted reference range : <=4.0. The reference r shayna was not used to int erpret this result as normal/abnormal . [facility] ConroeDwowpufCDBFHGDSSN3166-17-02 08:56:00 Test Item Value Reference Range Interpretation Comments Basophils (test code = 1.0 See_Comment [Aut omated message] The Basophils) system which ge nerated this result tra nsmitted reference range : <=1.0. The reference r shayna was not used to int erpret this result as normal/abnormal . [facility] ConroeRxzmspeASGOREPOHI2713-21-27 08:56:00 Test Item Value Reference Range Interpretation Comments Neutrophils # (test code = Neutrophils 5.1 1.5-8.1 #) [facility] ConroeQpkljehSZPRHSJNQJ8870-86-71 08:56:00 Test Item Value Reference Range Interpretation Comments Lymphocytes # (test code = Lymphocytes 1.5 1.0-5.5 #) [facility]roeSzdplkjYXOCVJXDEE7592-30-46 08:56:00 Test Item Value Reference Range Interpretation Comments Monocytes # (test code 0.7 See_Comment [Aut omated message] The = Monocytes #) system which generated this result tra nsmitted reference range : <=0.8. The reference r shayna was not used to int erpret this result as normal/abnormal . [facility]roeWijnpdtUIDRJMTVSN7452-49-41 08:56:00 Test Item Value Reference Range Interpretation Comments Eosinophils # (test code 0.2 See_Comment [A utomated message] The = Eosinophils #) system whic h generated this result tra nsmitted reference range : <=0.5. The reference r shayna was not used to int erpret this result as normal/abnormal . [facility] CenterAkiklaxIAYQRBGDHG1017-93-02 08:56:00 Test Item Value Reference Range Interpretation Comments Basophils # (test code 0.1 See_Comment [Aut omated message] The = Basophils #) system which generated this result tra nsmitted reference range : <=0.2. The reference r shayna was not used to int erpret this result as normal/abnormal . [facility] CenterQgtrpeeHDUBWW7789-94-18 08:56:00 Test Item Value Reference Range Interpretation Comments CHD Risk (test code = CHD Risk) 4.74 1 4.00-7.30 [facility] CenterUltttexKKUCIH9182-42-00 08:56:00 Test Item Value Reference Range Interpretation Comments Chol (test code = Chol) 161 [facility] CenterDsrytyyXSNRGR3252-79-74 08:56:00 Test Item Value Reference Range Interpretation Comments Trig (test code = Trig) 109 [facility] CenterWkvbuqeUPHPIO3969-94-93 08:56:00 Test Item Value Reference Range Interpretation Comments HDL (test code = HDL) 34 [facility] CenterEgunhorLMWSIW8435-72-50 08:56:00 Test Item Value Reference Range Interpretation Comments LDL (Calculated) (test code = LDL 105 (Calculated)) [facility] CenterMmvihgqQTTUMM5892-34-36 08:56:00 Test Item Value Reference Range Interpretation Comments VLDL (test code = VLDL) 22 1 [facility] CenterSPECIAL CGTLVSQML5385-05-87 08:56:00 Test Item Value Reference Range Interpretation Comments Hgb A1C (test code = Hgb A1C) 8.9 [facility] CenterCARDIAC QCNWZGO4712-29-47 08:56:00 Test Item Value Reference Range Interpretation Comments Troponin-I (test code no gt See_Comment [Auto mated message] The = Troponin-I) system which g enerated this result transmit danica reference range : <=0.40. The reference r shayna was not used to interpr et this result as zara l/abnormal. [facility] CenterCHEM CVYSC0645-16-66 08:56:00 Test Item Value Reference Range Interpretation Comments Glucose Lvl (test code = Glucose Lvl) 263 70-99 [facility]2019-12-08 08:56:00 Test Item Value Reference Range Interpretation Comments BUN (test code = BUN) 15 7-22 [facility]2019-12-08 08:56:00 Test Item Value Reference Range Interpretation Comments Creatinine Lvl (test code = Creatinine 0.88 0.50-1.40 Lvl) [facility]2019-12-08 08:56:00 Test Item Value Reference Range Interpretation Comments Sodium Lvl (test code = Sodium Lvl) 142 135-145 [facility]2019-12-08 08:56:00 Test Item Value Reference Range Interpretation Comments Potassium Lvl (test code = Potassium 3.7 3.5-5.1 Lvl) [facility]2019-12-08 08:56:00 Test Item Value Reference Range Interpretation Comments Chloride Lvl (test code = Chloride Lvl) 111 95-109 [facility]2019-12-08 08:56:00 Test Item Value Reference Range Interpretation Comments CO2 (test code = CO2) 24 24-32 [facility]2019-12-08 08:56:00 Test Item Value Reference Range Interpretation Comments Calcium Lvl (test code = Calcium Lvl) 8.4 8.5-10.5 [facility]2019-12-08 08:56:00 Test Item Value Reference Range Interpretation Comments eGFR (test code = eGFR) 79 [facility]2019-12-08 08:56:00 Test Item Value Reference Range Interpretation Comments AGAP (test code = AGAP) 10.7 10.0-20.0 [facility]roeJvlrlouVLMITOXBZN9035-23-90 08:56:00 Test Item Value Reference Range Interpretation Comments WBC (test code = WBC) 7.6 3.7-10.4 [facility]roeWyyzdfgKLQGJRMOYY0995-39-06 08:56:00 Test Item Value Reference Range Interpretation Comments RBC (test code = RBC) 4.56 4.70-6.10 [facility]roeDmausruBQDWMEHUQU1005-17-98 08:56:00 Test Item Value Reference Range Interpretation Comments Hgb (test code = Hgb) 13.8 14.0-18.0 [place] 305269-12-08 08:56:00 Test Item Value Reference Range Interpretation Comments Hct (test code = Hct) 41.0 42.0-54.0 [facility]roeMkyurfcAJCQHNJZEL8256-62-24 08:56:00 Test Item Value Reference Range Interpretation Comments MCV (test code = MCV) 89.9 80.0-94.0 [facility]roeWmzpfbsLFOSOLKOTQ2233-64-91 08:56:00 Test Item Value Reference Range Interpretation Comments MCH (test code = MCH) 30.3 pg 27.0-31.0 [facility]roeTagggmpCIZLTRDPLN9843-76-96 08:56:00 Test Item Value Reference Range Interpretation Comments MCHC (test code = MCHC) 33.7 32.0-36.0 [facility] ConroeZscorjqDNWRSIPTOK6120-69-29 08:56:00 Test Item Value Reference Range Interpretation Comments RDW (test code = RDW) 14.5 11.5-14.5 [facility] ConroeYtyvyknLCAIGRMBOE4643-82-54 08:56:00 Test Item Value Reference Range Interpretation Comments Platelet (test code = Platelet) 243 133-450 [facility] ConroeBhyreubDJPDGLXCKO6637-41-41 08:56:00 Test Item Value Reference Range Interpretation Comments MPV (test code = MPV) 8.6 7.4-10.4 [facility]roeMmjkvbpMDVVDXZOVM6545-06-51 08:56:00 Test Item Value Reference Range Interpretation Comments Segs (test code = Segs) 67.4 45.0-75.0 [facility]roeOgtiralLKUPAQSXDS1303-79-58 08:56:00 Test Item Value Reference Range Interpretation Comments Lymphocytes (test code = Lymphocytes) 19.8 20.0-40.0 [facility]roeFnfmvtnOHDDSZNMFO0981-72-16 08:56:00 Test Item Value Reference Range Interpretation Comments Monocytes (test code = Monocytes) 9.8 2.0-12.0 [facility] ConroeYdgmfcbAZFTDQVKCY5846-64-80 08:56:00 Test Item Value Reference Range Interpretation Comments Eosinophils (test code = 2.0 See_Comment [A utomated message] The Eosinophils) system which ge nerated this result tra nsmitted reference range : <=4.0. The reference r shayna was not used to int erpret this result as normal/abnormal . [facility] ConroeJradeuzUSZXHDLQYX3127-83-57 08:56:00 Test Item Value Reference Range Interpretation Comments Basophils (test code = 1.0 See_Comment [Aut omated message] The Basophils) system which ge nerated this result tra nsmitted reference range : <=1.0. The reference r shayna was not used to int erpret this result as normal/abnormal . [facility]roePbyesshGGSNTONRIT0043-45-86 08:56:00 Test Item Value Reference Range Interpretation Comments Neutrophils # (test code = Neutrophils 5.1 1.5-8.1 #) [facility] ConroeHxenjsqIPCZCANTAA2800-10-08 08:56:00 Test Item Value Reference Range Interpretation Comments Lymphocytes # (test code = Lymphocytes 1.5 1.0-5.5 #) [facility]roeYljqtiwBZYZUKHEOQ6154-53-96 08:56:00 Test Item Value Reference Range Interpretation Comments Monocytes # (test code 0.7 See_Comment [Aut omated message] The = Monocytes #) system which generated this result tra nsmitted reference range : <=0.8. The reference r shayna was not used to int erpret this result as normal/abnormal . [facility]roeSzwdkjiQCXWWQBSZM1627-94-49 08:56:00 Test Item Value Reference Range Interpretation Comments Eosinophils # (test code 0.2 See_Comment [A utomated message] The = Eosinophils #) system whic h generated this result tra nsmitted reference range : <=0.5. The reference r shayna was not used to int erpret this result as normal/abnormal . [facility] ConroeXhwwkguBPQIUXECHD7501-86-77 08:56:00 Test Item Value Reference Range Interpretation Comments Basophils # (test code 0.1 See_Comment [Aut omated message] The = Basophils #) system which generated this result tra nsmitted reference range : <=0.2. The reference r shayna was not used to int erpret this result as normal/abnormal . [facility] HospitalDyyaopdSWFEEF5282-94-94 08:56:00 Test Item Value Reference Range Interpretation Comments CHD Risk (test code = CHD Risk) 4.74 1 4.00-7.30 [facility] HospitalWiiyfakMODNNL6923-61-62 08:56:00 Test Item Value Reference Range Interpretation Comments Chol (test code = Chol) 161 [facility] HospitalIxxvwryLLELHB1241-25-07 08:56:00 Test Item Value Reference Range Interpretation Comments Trig (test code = Trig) 109 [facility] HospitalTzrqtbeAOAQEA3686-47-09 08:56:00 Test Item Value Reference Range Interpretation Comments HDL (test code = HDL) 34 [facility] CenterIvnecbrWFVJSD4559-33-34 08:56:00 Test Item Value Reference Range Interpretation Comments LDL (Calculated) (test code = LDL 105 (Calculated)) [facility] CenterSnhrmnoRLBHTQ4303-75-13 08:56:00 Test Item Value Reference Range Interpretation Comments VLDL (test code = VLDL) 22 1 [facility] LYEJMFMGN4238-17-57 08:56:00 Test Item Value Reference Range Interpretation Comments Hgb A1C (test code = Hgb A1C) 8.9 [facility]roeCohyltjKTTZDQFDPA0777-84-31 08:31:00 Test Item Value Reference Range Interpretation Comments Lymphocytes (test code = Lymphocytes) 20.3 20.0-40.0 [facility] ConroePajedurJGXSKAVVGV8438-71-63 08:31:00 Test Item Value Reference Range Interpretation Comments Monocytes (test code = Monocytes) 9.1 2.0-12.0 [facility]roeEndjpqeYIKQONPNPN2400-84-42 08:31:00 Test Item Value Reference Range Interpretation Comments Eosinophils (test code = 2.4 See_Comment [A utomated message] The Eosinophils) system which ge nerated this result tra nsmitted reference range : <=4.0. The reference r shayna was not used to int erpret this result as normal/abnormal . [facility] ConroeCsjlechEXYWCFOBTU0646-02-85 08:31:00 Test Item Value Reference Range Interpretation Comments Basophils (test code = 0.9 See_Comment [Aut omated message] The Basophils) system which ge nerated this result tra nsmitted reference range : <=1.0. The reference r shayna was not used to int erpret this result as normal/abnormal . [facility]roeCkffpbbUAHZVSLXNM3279-35-06 08:31:00 Test Item Value Reference Range Interpretation Comments Neutrophils # (test code = Neutrophils 5.4 1.5-8.1 #) [facility]roeSewiifiQXBZIGSSTT8085-18-73 08:31:00 Test Item Value Reference Range Interpretation Comments Lymphocytes # (test code = Lymphocytes 1.6 1.0-5.5 #) [facility] ConroeFexmnhiZCXSHYYNXU7195-57-61 08:31:00 Test Item Value Reference Range Interpretation Comments Monocytes # (test code 0.7 See_Comment [Aut omated message] The = Monocytes #) system which generated this result tra nsmitted reference range : <=0.8. The reference r shayna was not used to int erpret this result as normal/abnormal . [facility] ConroeGmdsrnhAITCGVEERW5970-61-63 08:31:00 Test Item Value Reference Range Interpretation Comments Eosinophils # (test code 0.2 See_Comment [A utomated message] The = Eosinophils #) system whic h generated this result tra nsmitted reference range : <=0.5. The reference r shayna was not used to int erpret this result as normal/abnormal . [id number] 08:31:00 Test Item Value Reference Range Interpretation Comments Basophils # (test code 0.1 See_Comment [Aut omated message] The = Basophils #) system which generated this result tra nsmitted reference range : <=0.2. The reference r shayna was not used to int erpret this result as normal/abnormal . [facility]roeLgqpjdqNMEDSPPHXN6999-61-03 08:31:00 Test Item Value Reference Range Interpretation Comments WBC (test code = WBC) 8.0 3.7-10.4 [facility]roeRfeucbeMDKBMCFSGW9683-76-95 08:31:00 Test Item Value Reference Range Interpretation Comments RBC (test code = RBC) 4.65 4.70-6.10 [facility]roeLqzgsfqIFPWHJMIME2833-58-70 08:31:00 Test Item Value Reference Range Interpretation Comments Hgb (test code = Hgb) 14.0 14.0-18.0 [facility]roeTwipbpvEQORMUUPNL0973-36-66 08:31:00 Test Item Value Reference Range Interpretation Comments Hct (test code = Hct) 41.8 42.0-54.0 [facility]roeBggbahvVNKEZBKMIA3795-70-57 08:31:00 Test Item Value Reference Range Interpretation Comments MCV (test code = MCV) 89.8 80.0-94.0 [facility]roeOtgnlfjQHIQKXBPMM4137-69-72 08:31:00 Test Item Value Reference Range Interpretation Comments MCH (test code = MCH) 30.1 pg 27.0-31.0 [facility]roeFochkjgMEREUCZVFX3361-79-09 08:31:00 Test Item Value Reference Range Interpretation Comments MCHC (test code = MCHC) 33.5 32.0-36.0 [facility]roeEubgvopOCPQITIYSG5292-37-27 08:31:00 Test Item Value Reference Range Interpretation Comments RDW (test code = RDW) 14.5 11.5-14.5 [facility]zVRZPSJLVJO7682-19-80 08:31:00 Test Item Value Reference Range Interpretation Comments Platelet (test code = Platelet) 249 133-450 [facility]roeLfibxngSEUVRWUFPB0148-86-48 08:31:00 Test Item Value Reference Range Interpretation Comments MPV (test code = MPV) 8.2 7.4-10.4 [facility]roeGzrejarNHGJYJOQJE6033-86-94 08:31:00 Test Item Value Reference Range Interpretation Comments PTT (test code = PTT) 31.5 s 22.9-35.8 [facility]roeZylfkevXMKHJNIONR5066-86-53 08:31:00 Test Item Value Reference Range Interpretation Comments INR (test code = INR) 1.15 1 0.85-1.17 [facility]roeUutzrviIRRBZIUVVB5065-84-15 08:31:00 Test Item Value Reference Range Interpretation Comments PT (test code = PT) 14.5 s 12.0-14.7 [facility]DmqqojtHMYKLYDKKA6747-[facility]-84 08:31:00 Test Item Value Reference Range Interpretation Comments Treponemal Ab (test code Non-Reactive = Treponemal Ab) *NA*(05/05/19 2:31 AM) [facility] AND [id number] 08:31:00 Test Item Value Reference Range Interpretation Comments UA Turbidity (test code = Clear (05/05/19 2:31 UA Turbidity) AM) [facility] AND [id number] 08:31:00 Test Item Value Reference Range Interpretation Comments UA Spec Grav (test code = UA Spec 1.006 1 Grav) [facility] AND [id number] 08:31:00 Test Item Value Reference Range Interpretation Comments UA pH (test code = UA pH) 7.0 1 5.0-8.0 [facility] AND [id number] 08:31:00 Test Item Value Reference Range Interpretation Comments UA Protein (test code = UA Negative mg/dL Protein) [facility] AND [id number] 08:31:00 Test Item Value Reference Range Interpretation Comments UA Ketones (test code = UA Negative mg/dL Ketones) [facility] AND [id number] 08:31:00 Test Item Value Reference Range Interpretation Comments UA Bili (test code = Negative *NA*(05/05/19 UA Bili) 2:31 AM) [facility] AND [id number] 08:31:00 Test Item Value Reference Range Interpretation Comments UA Blood (test code = Negative (05/05/19 2:31 UA Blood) AM) [facility] AND [id number] 08:31:00 Test Item Value Reference Range Interpretation Comments UA Nitrite (test code Negative (05/05/19 2:31 = UA Nitrite) AM) [facility] AND [id number] 08:31:00 Test Item Value Reference Range Interpretation Comments UA Leuk Est (test Negative (05/05/19 2:31 code = UA Leuk Est) AM) [facility] AND [id number] 08:31:00 Test Item Value Reference Range Interpretation Comments UA Sq Epi (test code = UA Sq Epi) None Seen [facility] AND [id number] 08:31:00 Test Item Value Reference Range Interpretation Comments UA Color (test code = UA Color) STRAW [facility] AND [id number] 08:31:00 Test Item Value Reference Range Interpretation Comments UA Glucose (test code = UA Glucose) 150 [facility] AND [id number] 08:31:00 Test Item Value Reference Range Interpretation Comments UA Urobilinogen (test code = UA <=1.0 mg/dL 0.1-1.0 Urobilinogen) [facility] [id number] 08:31:00 Test Item Value Reference Range Interpretation Comments Troponin-I (test code no gt See_Comment [Auto mated message] The = Troponin-I) system which g enerated this result transmit danica reference range : <=0.40. The reference r shayna was not used to interpr et this result as zara l/abnormal. [facility] 4BloxannCHEM [id number] 08:31:00 Test Item Value Reference Range Interpretation Comments Glucose Lvl (test code = Glucose Lvl) 267 70-99 [facility]CHE[facility] [id number] 08:31:00 Test Item Value Reference Range Interpretation Comments BUN (test code = BUN) 15 7-22 [facility]CHE[facility] [id number] 08:31:00 Test Item Value Reference Range Interpretation Comments Creatinine Lvl (test code = Creatinine 0.99 0.50-1.40 Lvl) [facility]2019-12-08 08:31:00 Test Item Value Reference Range Interpretation Comments Sodium Lvl (test code = Sodium Lvl) 143 135-145 [facility]2019-12-08 08:31:00 Test Item Value Reference Range Interpretation Comments Potassium Lvl (test code = Potassium 4.1 3.5-5.1 Lvl) [facility]2019-12-08 08:31:00 Test Item Value Reference Range Interpretation Comments Chloride Lvl (test code = Chloride Lvl) 110 95-109 [facility]2019-12-08 08:31:00 Test Item Value Reference Range Interpretation Comments CO2 (test code = CO2) 27 24-32 [facility]2019-12-08 08:31:00 Test Item Value Reference Range Interpretation Comments Calcium Lvl (test code = Calcium Lvl) 8.9 8.5-10.5 [facility]2019-12-08 08:31:00 Test Item Value Reference Range Interpretation Comments Total Protein (test code = Total 6.1 6.4-8.4 Protein) [facility]2019-12-08 08:31:00 Test Item Value Reference Range Interpretation Comments Albumin Lvl (test code = Albumin Lvl) 3.4 3.5-5.0 [facility]2019-12-08 08:31:00 Test Item Value Reference Range Interpretation Comments ALT (test code = ALT) 16 See_Comment [Auto mated message] The system which ge nerated this result transmit danica reference range : <=65. The reference range was not used to interpr et this result as zara l/abnormal. [facility]2019-12-08 08:31:00 Test Item Value Reference Range Interpretation Comments AST (test code = AST) 10 See_Comment [Auto mated message] The system which ge nerated this result transmit danica reference range : <=37. The reference range was not used to interpr et this result as zara l/abnormal. [facility]2019-12-08 08:31:00 Test Item Value Reference Range Interpretation Comments Alk Phos (test code = Alk Phos) 53 39-136 [place] 566569-12-08 08:31:00 Test Item Value Reference Range Interpretation Comments Bili Total (test code = Bili Total) 0.7 0.2-1.3 [facility]2019-12-08 08:31:00 Test Item Value Reference Range Interpretation Comments eGFR (test code = eGFR) 70 [facility]2019-12-08 08:31:00 Test Item Value Reference Range Interpretation Comments AGAP (test code = AGAP) 10.1 10.0-20.0 [facility]2019-12-08 08:31:00 Test Item Value Reference Range Interpretation Comments B/C Ratio (test code = B/C Ratio) 15 1 6-25 [facility]2019-12-08 08:31:00 Test Item Value Reference Range Interpretation Comments Globulin (test code = Globulin) 2.7 2.7-4.2 [facility]2019-12-08 08:31:00 Test Item Value Reference Range Interpretation Comments A/G Ratio (test code = A/G Ratio) 1.3 1 0.7-1.6 [facility]MbvkdljPMLHJAUPAR1914-20-25 08:31:00 Test Item Value Reference Range Interpretation Comments Segs (test code = Segs) 67.3 45.0-75.0 [facility] [id number] 08:31:00 Test Item Value Reference Range Interpretation Comments Troponin-I (test code no gt See_Comment [Auto mated message] The = Troponin-I) system which g enerated this result transmit danica reference range : <=0.40. The reference r shayna was not used to interpr et this result as zara l/abnormal. [facility]2019-12-08 08:31:00 Test Item Value Reference Range Interpretation Comments Glucose Lvl (test code = Glucose Lvl) 267 70-99 [facility]2019-12-08 08:31:00 Test Item Value Reference Range Interpretation Comments BUN (test code = BUN) 15 7-22 [facility]2019-12-08 08:31:00 Test Item Value Reference Range Interpretation Comments Creatinine Lvl (test code = Creatinine 0.99 0.50-1.40 Lvl) [facility]2019-12-08 08:31:00 Test Item Value Reference Range Interpretation Comments Sodium Lvl (test code = Sodium Lvl) 143 135-145 [facility]2019-12-08 08:31:00 Test Item Value Reference Range Interpretation Comments Potassium Lvl (test code = Potassium 4.1 3.5-5.1 Lvl) [facility]2019-12-08 08:31:00 Test Item Value Reference Range Interpretation Comments Chloride Lvl (test code = Chloride Lvl) 110 95-109 [facility]2019-12-08 08:31:00 Test Item Value Reference Range Interpretation Comments CO2 (test code = CO2) 27 24-32 [facility]2019-12-08 08:31:00 Test Item Value Reference Range Interpretation Comments Calcium Lvl (test code = Calcium Lvl) 8.9 8.5-10.5 [facility]2019-12-08 08:31:00 Test Item Value Reference Range Interpretation Comments Total Protein (test code = Total 6.1 6.4-8.4 Protein) [facility]2019-12-08 08:31:00 Test Item Value Reference Range Interpretation Comments Albumin Lvl (test code = Albumin Lvl) 3.4 3.5-5.0 [facility]2019-12-08 08:31:00 Test Item Value Reference Range Interpretation Comments ALT (test code = ALT) 16 See_Comment [Auto mated message] The system which ge nerated this result transmit danica reference range : <=65. The reference range was not used to interpr et this result as zara l/abnormal. [facility]2019-12-08 08:31:00 Test Item Value Reference Range Interpretation Comments AST (test code = AST) 10 See_Comment [Auto mated message] The system which ge nerated this result transmit danica reference range : <=37. The reference range was not used to interpr et this result as zara l/abnormal. [facility]2019-12-08 08:31:00 Test Item Value Reference Range Interpretation Comments Alk Phos (test code = Alk Phos) 53 39-136 [facility]2019-12-08 08:31:00 Test Item Value Reference Range Interpretation Comments Bili Total (test code = Bili Total) 0.7 0.2-1.3 [place] 566569-12-08 08:31:00 Test Item Value Reference Range Interpretation Comments eGFR (test code = eGFR) 70 [facility]2019-12-08 08:31:00 Test Item Value Reference Range Interpretation Comments AGAP (test code = AGAP) 10.1 10.0-20.0 [facility]2019-12-08 08:31:00 Test Item Value Reference Range Interpretation Comments B/C Ratio (test code = B/C Ratio) 15 1 6-25 [place] 566569-12-08 08:31:00 Test Item Value Reference Range Interpretation Comments Globulin (test code = Globulin) 2.7 2.7-4.2 [facility]2019-12-08 08:31:00 Test Item Value Reference Range Interpretation Comments A/G Ratio (test code = A/G Ratio) 1.3 1 0.7-1.6 [id number] 08:31:00 Test Item Value Reference Range Interpretation Comments Segs (test code = Segs) 67.3 45.0-75.0 [place] 305269-12-08 08:31:00 Test Item Value Reference Range Interpretation Comments Lymphocytes (test code = Lymphocytes) 20.3 20.0-40.0 [facility]roeFbyacenYXGTQNZYPW5727-05-31 08:31:00 Test Item Value Reference Range Interpretation Comments Monocytes (test code = Monocytes) 9.1 2.0-12.0 [facility]roeE[id number] 08:31:00 Test Item Value Reference Range Interpretation Comments Eosinophils (test code = 2.4 See_Comment [A utomated message] The Eosinophils) system which nerated this result tra nsmitted reference range : <=4.0. The reference r shayna was not used to int erpret this result as normal/abnormal . [facility]roeYtxfkwgPKIVJIAICY1584-32-96 08:31:00 Test Item Value Reference Range Interpretation Comments Basophils (test code = 0.9 See_Comment [Aut omated message] The Basophils) system which ge nerated this result tra nsmitted reference range : <=1.0. The reference r shayna was not used to int erpret this result as normal/abnormal . [place] 305269-12-08 08:31:00 Test Item Value Reference Range Interpretation Comments Neutrophils # (test code = Neutrophils 5.4 1.5-8.1 #) [facility]roeGpqhohjGMTECFORYK6223-77-53 08:31:00 Test Item Value Reference Range Interpretation Comments Lymphocytes # (test code = Lymphocytes 1.6 1.0-5.5 #) [facility]roeYiwuelmAKIPVZCXDT0252-20-57 08:31:00 Test Item Value Reference Range Interpretation Comments Monocytes # (test code 0.7 See_Comment [Aut omated message] The = Monocytes #) system which generated this result tra nsmitted reference range : <=0.8. The reference r shayna was not used to int erpret this result as normal/abnormal . [facility]roeIgpyqumEYHIQJGCRM3406-52-18 08:31:00 Test Item Value Reference Range Interpretation Comments Eosinophils # (test code 0.2 See_Comment [A utomated message] The = Eosinophils #) system whic h generated this result tra nsmitted reference range : <=0.5. The reference r shayna was not used to int erpret this result as normal/abnormal . [facility]roeIfcvepjOIBAXXSYII4642-22-29 08:31:00 Test Item Value Reference Range Interpretation Comments Basophils # (test code 0.1 See_Comment [Aut omated message] The = Basophils #) system which generated this result tra nsmitted reference range : <=0.2. The reference r shayna was not used to int erpret this result as normal/abnormal . [facility]roeSyonuxeSAUUNETDKA5498-39-67 08:31:00 Test Item Value Reference Range Interpretation Comments WBC (test code = WBC) 8.0 3.7-10.4 [facility]roeYytenvjHAVPYUNTWI5021-17-47 08:31:00 Test Item Value Reference Range Interpretation Comments RBC (test code = RBC) 4.65 4.70-6.10 [facility]roeWripigpTSSQOSNONG9198-95-61 08:31:00 Test Item Value Reference Range Interpretation Comments Hgb (test code = Hgb) 14.0 14.0-18.0 [facility]roeHbesowiORJUTFERJB4509-43-77 08:31:00 Test Item Value Reference Range Interpretation Comments Hct (test code = Hct) 41.8 42.0-54.0 [facility]roeSlymwvpHAQRXDDMMF7278-85-20 08:31:00 Test Item Value Reference Range Interpretation Comments MCV (test code = MCV) 89.8 80.0-94.0 [facility] HospitalWhmqhulJCQKXBVXUR7938-43-22 08:31:00 Test Item Value Reference Range Interpretation Comments MCH (test code = MCH) 30.1 pg 27.0-31.0 [facility] HospitalOiszzpuOVQEYJFHGK5003-61-15 08:31:00 Test Item Value Reference Range Interpretation Comments MCHC (test code = MCHC) 33.5 32.0-36.0 [facility]roeUuawzvjZATMIBKQSQ9679-84-68 08:31:00 Test Item Value Reference Range Interpretation Comments RDW (test code = RDW) 14.5 11.5-14.5 [facility]roeBpusiquZWRFWGGWEX7645-04-60 08:31:00 Test Item Value Reference Range Interpretation Comments Platelet (test code = Platelet) 249 133-450 [facility]roeDjremmhLXIVXMIKMB4093-98-79 08:31:00 Test Item Value Reference Range Interpretation Comments MPV (test code = MPV) 8.2 7.4-10.4 [facility]roeLgulgndMIMSLRYPRJ0804-42-89 08:31:00 Test Item Value Reference Range Interpretation Comments PTT (test code = PTT) 31.5 s 22.9-35.8 [facility] HospitalCzxlumzUDMQYTLHMA7048-04-41 08:31:00 Test Item Value Reference Range Interpretation Comments INR (test code = INR) 1.15 1 0.85-1.17 [facility]roeBfiscwiJXJJTEASKX8553-97-94 08:31:00 Test Item Value Reference Range Interpretation Comments PT (test code = PT) 14.5 s 12.0-14.7 [facility]EcgfgdnIEZYDENZDD2320-29-12 08:31:00 Test Item Value Reference Range Interpretation Comments Treponemal Ab (test code Non-Reactive = Treponemal Ab) *NA*(05/05/19 2:31 AM) [facility] AND [id number] 08:31:00 Test Item Value Reference Range Interpretation Comments UA Turbidity (test code = Clear (05/05/19 2:31 UA Turbidity) AM) [facility] AND [id number] 08:31:00 Test Item Value Reference Range Interpretation Comments UA Spec Grav (test code = UA Spec 1.006 1 Grav) [facility] AND [id number] 08:31:00 Test Item Value Reference Range Interpretation Comments UA pH (test code = UA pH) 7.0 1 5.0-8.0 [facility] AND [id number] 08:31:00 Test Item Value Reference Range Interpretation Comments UA Protein (test code = UA Negative mg/dL Protein) [facility] AND [id number] 08:31:00 Test Item Value Reference Range Interpretation Comments UA Ketones (test code = UA Negative mg/dL Ketones) [facility] AND [id number] 08:31:00 Test Item Value Reference Range Interpretation Comments UA Bili (test code = Negative *NA*(05/05/19 UA Bili) 2:31 AM) [facility] AND [id number] 08:31:00 Test Item Value Reference Range Interpretation Comments UA Blood (test code = Negative (05/05/19 2:31 UA Blood) AM) [facility] AND [id number] 08:31:00 Test Item Value Reference Range Interpretation Comments UA Nitrite (test code Negative (05/05/19 2:31 = UA Nitrite) AM) [facility] AND [id number] 08:31:00 Test Item Value Reference Range Interpretation Comments UA Leuk Est (test Negative (05/05/19 2:31 code = UA Leuk Est) AM) [facility] AND [id number] 08:31:00 Test Item Value Reference Range Interpretation Comments UA Sq Epi (test code = UA Sq Epi) None Seen [facility] AND [id number] 08:31:00 Test Item Value Reference Range Interpretation Comments UA Color (test code = UA Color) STRAW [facility] AND [id number] 08:31:00 Test Item Value Reference Range Interpretation Comments UA Glucose (test code = UA Glucose) 150 [facility] AND [id number] 08:31:00 Test Item Value Reference Range Interpretation Comments UA Urobilinogen (test code = UA <=1.0 mg/dL 0.1-1.0 Urobilinogen) [facility] [id number] 08:31:00 Test Item Value Reference Range Interpretation Comments Troponin-I (test code no gt See_Comment [Auto mated message] The = Troponin-I) system which g enerated this result transmit danica reference range : <=0.40. The reference r shayna was not used to interpr et this result as zara l/abnormal. [facility]2019-12-08 08:31:00 Test Item Value Reference Range Interpretation Comments Glucose Lvl (test code = Glucose Lvl) 267 70-99 [facility]2019-12-08 08:31:00 Test Item Value Reference Range Interpretation Comments BUN (test code = BUN) 15 7-22 [facility]2019-12-08 08:31:00 Test Item Value Reference Range Interpretation Comments Creatinine Lvl (test code = Creatinine 0.99 0.50-1.40 Lvl) [facility]2019-12-08 08:31:00 Test Item Value Reference Range Interpretation Comments Sodium Lvl (test code = Sodium Lvl) 143 135-145 [facility]2019-12-08 08:31:00 Test Item Value Reference Range Interpretation Comments Potassium Lvl (test code = Potassium 4.1 3.5-5.1 Lvl) [facility]2019-12-08 08:31:00 Test Item Value Reference Range Interpretation Comments Chloride Lvl (test code = Chloride Lvl) 110 95-109 [facility]2019-12-08 08:31:00 Test Item Value Reference Range Interpretation Comments CO2 (test code = CO2) 27 24-32 [facility]2019-12-08 08:31:00 Test Item Value Reference Range Interpretation Comments Calcium Lvl (test code = Calcium Lvl) 8.9 8.5-10.5 [facility]2019-12-08 08:31:00 Test Item Value Reference Range Interpretation Comments Total Protein (test code = Total 6.1 6.4-8.4 Protein) [facility]2019-12-08 08:31:00 Test Item Value Reference Range Interpretation Comments Albumin Lvl (test code = Albumin Lvl) 3.4 3.5-5.0 [facility]2019-12-08 08:31:00 Test Item Value Reference Range Interpretation Comments ALT (test code = ALT) 16 See_Comment [Auto mated message] The system which ge nerated this result transmit danica reference range : <=65. The reference range was not used to interpr et this result as zara l/abnormal. [facility]2019-12-08 08:31:00 Test Item Value Reference Range Interpretation Comments AST (test code = AST) 10 See_Comment [Auto mated message] The system which ge nerated this result transmit danica reference range : <=37. The reference range was not used to interpr et this result as zara l/abnormal. [facility]2019-12-08 08:31:00 Test Item Value Reference Range Interpretation Comments Alk Phos (test code = Alk Phos) 53 39-136 [facility]2019-12-08 08:31:00 Test Item Value Reference Range Interpretation Comments Bili Total (test code = Bili Total) 0.7 0.2-1.3 [facility]2019-12-08 08:31:00 Test Item Value Reference Range Interpretation Comments eGFR (test code = eGFR) 70 [facility]2019-12-08 08:31:00 Test Item Value Reference Range Interpretation Comments AGAP (test code = AGAP) 10.1 10.0-20.0 [place] 566569-12-08 08:31:00 Test Item Value Reference Range Interpretation Comments B/C Ratio (test code = B/C Ratio) 15 1 6-25 [facility]2019-12-08 08:31:00 Test Item Value Reference Range Interpretation Comments Globulin (test code = Globulin) 2.7 2.7-4.2 [facility]2019-12-08 08:31:00 Test Item Value Reference Range Interpretation Comments A/G Ratio (test code = A/G Ratio) 1.3 1 0.7-1.6 [place] 305269-12-08 08:31:00 Test Item Value Reference Range Interpretation Comments Segs (test code = Segs) 67.3 45.0-75.0 [facility]CcevvwkZIAIZHMTWL0166-43-54 08:31:00 Test Item Value Reference Range Interpretation Comments Lymphocytes (test code = Lymphocytes) 20.3 20.0-40.0 [facility]roeGyxdgpgAJMCUEKFYG2867-30-28 08:31:00 Test Item Value Reference Range Interpretation Comments Monocytes (test code = Monocytes) 9.1 2.0-12.0 [place] 305269-12-08 08:31:00 Test Item Value Reference Range Interpretation Comments Eosinophils (test code = 2.4 See_Comment [A utomated message] The Eosinophils) system which ge nerated this result tra nsmitted reference range : <=4.0. The reference r shayna was not used to int erpret this result as normal/abnormal . [facility]roeZjkjaxvOUAZBVRSNG8487-29-62 08:31:00 Test Item Value Reference Range Interpretation Comments Basophils (test code = 0.9 See_Comment [Aut omated message] The Basophils) system which ge nerated this result tra nsmitted reference range : <=1.0. The reference r shayna was not used to int erpret this result as normal/abnormal . [facility]roeTuzknqzZDZOVKFJFP1552-63-92 08:31:00 Test Item Value Reference Range Interpretation Comments Neutrophils # (test code = Neutrophils 5.4 1.5-8.1 #) [facility]roeWlonsjySNFKHOIAZZ1134-60-02 08:31:00 Test Item Value Reference Range Interpretation Comments Lymphocytes # (test code = Lymphocytes 1.6 1.0-5.5 #) [facility]r[id number] 08:31:00 Test Item Value Reference Range Interpretation Comments Monocytes # (test code 0.7 See_Comment [Aut omated message] The = Monocytes #) system which generated this result tra nsmitted reference range : <=0.8. The reference r shayna was not used to int erpret this result as normal/abnormal . [facility]roeIbkdodaCWERPWMCCY0081-18-69 08:31:00 Test Item Value Reference Range Interpretation Comments Eosinophils # (test code 0.2 See_Comment [A utomated message] The = Eosinophils #) system whic h generated this result tra nsmitted reference range : <=0.5. The reference r shayna was not used to int erpret this result as normal/abnormal . [facility]roeWmpvuqbETDVBLYUXD2336-53-42 08:31:00 Test Item Value Reference Range Interpretation Comments Basophils # (test code 0.1 See_Comment [Aut omated message] The = Basophils #) system which generated this result tra nsmitted reference range : <=0.2. The reference r shayna was not used to int erpret this result as normal/abnormal . [facility]roePojojdiPZGTADELBS6067-69-71 08:31:00 Test Item Value Reference Range Interpretation Comments WBC (test code = WBC) 8.0 3.7-10.4 [facility]roeRjkyyumQQDPXOYPKK0839-62-96 08:31:00 Test Item Value Reference Range Interpretation Comments RBC (test code = RBC) 4.65 4.70-6.10 [facility]roeEqutmzcVVMQRLXQMU1488-08-80 08:31:00 Test Item Value Reference Range Interpretation Comments Hgb (test code = Hgb) 14.0 14.0-18.0 [facility]roeAvrhldoVQUXKDJVRQ5339-72-69 08:31:00 Test Item Value Reference Range Interpretation Comments Hct (test code = Hct) 41.8 42.0-54.0 [facility]roeVodwkmsBXICSVLIOH4225-92-32 08:31:00 Test Item Value Reference Range Interpretation Comments MCV (test code = MCV) 89.8 80.0-94.0 [facility]roeRrunyziDZBZKFWBVW3057-66-19 08:31:00 Test Item Value Reference Range Interpretation Comments MCH (test code = MCH) 30.1 pg 27.0-31.0 [facility]roeSzemonfUHUTFKIKUK8342-61-06 08:31:00 Test Item Value Reference Range Interpretation Comments MCHC (test code = MCHC) 33.5 32.0-36.0 [facility]roeOudmzpiCHSQSVAXRQ6004-21-67 08:31:00 Test Item Value Reference Range Interpretation Comments RDW (test code = RDW) 14.5 11.5-14.5 [facility]roeZgpwzyhIAUJLZXCXT2765-48-42 08:31:00 Test Item Value Reference Range Interpretation Comments Platelet (test code = Platelet) 249 133-450 [facility]roeLxidvbhSODATMFHME4959-71-61 08:31:00 Test Item Value Reference Range Interpretation Comments MPV (test code = MPV) 8.2 7.4-10.4 [facility]roeGaeseirLYZEXAVYOQ8532-63-04 08:31:00 Test Item Value Reference Range Interpretation Comments PTT (test code = PTT) 31.5 s 22.9-35.8 [facility]roeJfxbrjaHPSQKTFESZ2248-58-55 08:31:00 Test Item Value Reference Range Interpretation Comments INR (test code = INR) 1.15 1 0.85-1.17 [facility]roeSeiqukyQHKMVUWIDN8944-73-77 08:31:00 Test Item Value Reference Range Interpretation Comments PT (test code = PT) 14.5 s 12.0-14.7 [facility] BmrwhguONQBMBBVTI6430-38-17 08:31:00 Test Item Value Reference Range Interpretation Comments Treponemal Ab (test code Non-Reactive = Treponemal Ab) *NA*(05/05/19 2:31 AM) [facility] [id number] 08:31:00 Test Item Value Reference Range Interpretation Comments UA Turbidity (test code = Clear (05/05/19 2:31 UA Turbidity) AM) [facility] [id number] 08:31:00 Test Item Value Reference Range Interpretation Comments UA Spec Grav (test code = UA Spec 1.006 1 Grav) [facility] [id number] 08:31:00 Test Item Value Reference Range Interpretation Comments UA pH (test code = UA pH) 7.0 1 5.0-8.0 [facility] [id number] 08:31:00 Test Item Value Reference Range Interpretation Comments UA Protein (test code = UA Negative mg/dL Protein) [facility] [id number] 08:31:00 Test Item Value Reference Range Interpretation Comments UA Ketones (test code = UA Negative mg/dL Ketones) [facility] [id number] 08:31:00 Test Item Value Reference Range Interpretation Comments UA Bili (test code = Negative *NA*(05/05/19 UA Bili) 2:31 AM) [facility] [id number] 08:31:00 Test Item Value Reference Range Interpretation Comments UA Blood (test code = Negative (05/05/19 2:31 UA Blood) AM) [facility] [id number] 08:31:00 Test Item Value Reference Range Interpretation Comments UA Nitrite (test code Negative (05/05/19 2:31 = UA Nitrite) AM) [facility] [id number] 08:31:00 Test Item Value Reference Range Interpretation Comments UA Leuk Est (test Negative (05/05/19 2:31 code = UA Leuk Est) AM) [facility] [id number] 08:31:00 Test Item Value Reference Range Interpretation Comments UA Sq Epi (test code = UA Sq Epi) None [facility]en [facility] [id number] 08:31:00 Test Item Value Reference Range Interpretation Comments UA Color (test code = UA Color) STRAW [facility] AND [id number] 08:31:00 Test Item Value Reference Range Interpretation Comments UA Glucose (test code = UA Glucose) 150 [facility] AND [id number] 08:31:00 Test Item Value Reference Range Interpretation Comments UA Urobilinogen (test code = UA <=1.0 mg/dL 0.1-1.0 Urobilinogen) [facility] [id number] 08:31:00 Test Item Value Reference Range Interpretation Comments Troponin-I (test code no gt See_Comment [Auto mated message] The = Troponin-I) system which g enerated this result transmit danica reference range : <=0.40. The reference r shayna was not used to interpr et this result as zara l/abnormal. [facility] [id number] 08:31:00 Test Item Value Reference Range Interpretation Comments Glucose Lvl (test code = Glucose Lvl) 267 70-99 [facility]2019-12-08 08:31:00 Test Item Value Reference Range Interpretation Comments BUN (test code = BUN) 15 7-22 [facility]2019-12-08 08:31:00 Test Item Value Reference Range Interpretation Comments Creatinine Lvl (test code = Creatinine 0.99 0.50-1.40 Lvl) [facility]2019-12-08 08:31:00 Test Item Value Reference Range Interpretation Comments Sodium Lvl (test code = Sodium Lvl) 143 135-145 [facility]2019-12-08 08:31:00 Test Item Value Reference Range Interpretation Comments Potassium Lvl (test code = Potassium 4.1 3.5-5.1 Lvl) [facility]2019-12-08 08:31:00 Test Item Value Reference Range Interpretation Comments Chloride Lvl (test code = Chloride Lvl) 110 95-109 [facility]2019-12-08 08:31:00 Test Item Value Reference Range Interpretation Comments CO2 (test code = CO2) 27 24-32 [facility] [id number] 08:31:00 Test Item Value Reference Range Interpretation Comments Calcium Lvl (test code = Calcium Lvl) 8.9 8.5-10.5 [facility]2019-12-08 08:31:00 Test Item Value Reference Range Interpretation Comments Total Protein (test code = Total 6.1 6.4-8.4 Protein) [facility]2019-12-08 08:31:00 Test Item Value Reference Range Interpretation Comments Albumin Lvl (test code = Albumin Lvl) 3.4 3.5-5.0 [facility]2019-12-08 08:31:00 Test Item Value Reference Range Interpretation Comments ALT (test code = ALT) 16 See_Comment [Auto mated message] The system which ge nerated this result transmit danica reference range : <=65. The reference range was not used to interpr et this result as azra l/abnormal. [facility]2019-12-08 08:31:00 Test Item Value Reference Range Interpretation Comments AST (test code = AST) 10 See_Comment [Auto mated message] The system which ge nerated this result transmit danica reference range : <=37. The reference range was not used to interpr et this result as zara l/abnormal. [facility]2019-12-08 08:31:00 Test Item Value Reference Range Interpretation Comments Alk Phos (test code = Alk Phos) 53 39-136 [facility]2019-12-08 08:31:00 Test Item Value Reference Range Interpretation Comments Bili Total (test code = Bili Total) 0.7 0.2-1.3 [facility]2019-12-08 08:31:00 Test Item Value Reference Range Interpretation Comments eGFR (test code = eGFR) 70 [facility]2019-12-08 08:31:00 Test Item Value Reference Range Interpretation Comments AGAP (test code = AGAP) 10.1 10.0-20.0 [facility]2019-12-08 08:31:00 Test Item Value Reference Range Interpretation Comments B/C Ratio (test code = B/C Ratio) 15 1 6-25 [place] 566569-12-08 08:31:00 Test Item Value Reference Range Interpretation Comments Globulin (test code = Globulin) 2.7 2.7-4.2 [facility]2019-12-08 08:31:00 Test Item Value Reference Range Interpretation Comments A/G Ratio (test code = A/G Ratio) 1.3 1 0.7-1.6 [facility]roeLxtvywsPZPRZVWFTW6911-64-79 08:31:00 Test Item Value Reference Range Interpretation Comments Segs (test code = Segs) 67.3 45.0-75.0 [facility]roeWcqealbAFUMWPICPX1564-35-95 08:31:00 Test Item Value Reference Range Interpretation Comments Lymphocytes (test code = Lymphocytes) 20.3 20.0-40.0 [facility]roeCuiadqyULPFJFVLWG9736-78-73 08:31:00 Test Item Value Reference Range Interpretation Comments Monocytes (test code = Monocytes) 9.1 2.0-12.0 [facility]roeSefxbioOTBUOJIXOA5395-10-89 08:31:00 Test Item Value Reference Range Interpretation Comments Eosinophils (test code = 2.4 See_Comment [A utomated message] The Eosinophils) system which ge nerated this result tra nsmitted reference range : <=4.0. The reference r shayna was not used to int erpret this result as normal/abnormal . [facility]roeHjgfxkgKDPYMDEMPV1729-07-49 08:31:00 Test Item Value Reference Range Interpretation Comments Basophils (test code = 0.9 See_Comment [Aut omated message] The Basophils) system which ge nerated this result tra nsmitted reference range : <=1.0. The reference r shayna was not used to int erpret this result as normal/abnormal . [facility]roeOtdvoiwSIRQELFYGZ6915-80-42 08:31:00 Test Item Value Reference Range Interpretation Comments Neutrophils # (test code = Neutrophils 5.4 1.5-8.1 #) [facility]roeYghmrdwWLCDFVHLCY0326-00-72 08:31:00 Test Item Value Reference Range Interpretation Comments Lymphocytes # (test code = Lymphocytes 1.6 1.0-5.5 #) [facility]roeZodbupaMGQBJYXGTK6331-07-37 08:31:00 Test Item Value Reference Range Interpretation Comments Monocytes # (test code 0.7 See_Comment [Aut omated message] The = Monocytes #) system which generated this result tra nsmitted reference range : <=0.8. The reference r shayna was not used to int erpret this result as normal/abnormal . [facility]roeYbobmmcIJTQIZTHCS9690-80-16 08:31:00 Test Item Value Reference Range Interpretation Comments Eosinophils # (test code 0.2 See_Comment [A utomated message] The = Eosinophils #) system whic h generated this result tra nsmitted reference range : <=0.5. The reference r shayna was not used to int erpret this result as normal/abnormal . [facility]roeVvnydigJTUTHGLVUE0816-32-72 08:31:00 Test Item Value Reference Range Interpretation Comments Basophils # (test code 0.1 See_Comment [Aut omated message] The = Basophils #) system which generated this result tra nsmitted reference range : <=0.2. The reference r shayna was not used to int erpret this result as normal/abnormal . [facility]roePlghzplNDQDDTYELR5216-07-28 08:31:00 Test Item Value Reference Range Interpretation Comments WBC (test code = WBC) 8.0 3.7-10.4 [facility]roeBsebccxATDSKSDPNZ1142-45-29 08:31:00 Test Item Value Reference Range Interpretation Comments RBC (test code = RBC) 4.65 4.70-6.10 [facility]roeDqynquhIZUECMVEZO0026-86-81 08:31:00 Test Item Value Reference Range Interpretation Comments Hgb (test code = Hgb) 14.0 14.0-18.0 [facility]roeHtionpjRWIGOUJIBK3553-90-49 08:31:00 Test Item Value Reference Range Interpretation Comments Hct (test code = Hct) 41.8 42.0-54.0 [facility]roeWgwktgcICAVERKUXG1895-09-43 08:31:00 Test Item Value Reference Range Interpretation Comments MCV (test code = MCV) 89.8 80.0-94.0 [facility]roeQnqbiahSWTFUJPGGB7585-94-20 08:31:00 Test Item Value Reference Range Interpretation Comments MCH (test code = MCH) 30.1 pg 27.0-31.0 [facility]roeBihllvtIYNJNIMSJT9671-82-42 08:31:00 Test Item Value Reference Range Interpretation Comments MCHC (test code = MCHC) 33.5 32.0-36.0 [facility]roeRyypduzMKKGMIMRVZ7018-77-07 08:31:00 Test Item Value Reference Range Interpretation Comments RDW (test code = RDW) 14.5 11.5-14.5 [facility]roeXaukzycKYSBUHVYUX9718-85-84 08:31:00 Test Item Value Reference Range Interpretation Comments Platelet (test code = Platelet) 249 133-450 [facility] CenterRqoxhhvXEFRTKAUMD7712-95-85 08:31:00 Test Item Value Reference Range Interpretation Comments MPV (test code = MPV) 8.2 7.4-10.4 [facility] CenterDszcpxgIKTUWBPFBF7481-64-90 08:31:00 Test Item Value Reference Range Interpretation Comments PTT (test code = PTT) 31.5 s 22.9-35.8 [facility]OsycqbgJBVTUVBRMQ3046-23-98 08:31:00 Test Item Value Reference Range Interpretation Comments INR (test code = INR) 1.15 1 0.85-1.17 [facility] CenterGyyutpgWDHQHXWVUJ1295-99-75 08:31:00 Test Item Value Reference Range Interpretation Comments PT (test code = PT) 14.5 s 12.0-14.7 [facility] CenterJcxdhqoKKQQXTDWJJ6760-19-46 08:31:00 Test Item Value Reference Range Interpretation Comments Treponemal Ab (test code Non-Reactive = Treponemal Ab) *NA*(05/05/19 2:31 AM) [facility] AND [id number] 08:31:00 Test Item Value Reference Range Interpretation Comments UA Turbidity (test code = Clear (05/05/19 2:31 UA Turbidity) AM) [facility] AND [id number] 08:31:00 Test Item Value Reference Range Interpretation Comments UA Spec Grav (test code = UA Spec 1.006 1 Grav) [facility] AND [id number] 08:31:00 Test Item Value Reference Range Interpretation Comments UA pH (test code = UA pH) 7.0 1 5.0-8.0 [facility] [id number] 08:31:00 Test Item Value Reference Range Interpretation Comments UA Protein (test code = UA Negative mg/dL Protein) [facility] [id number] 08:31:00 Test Item Value Reference Range Interpretation Comments UA Ketones (test code = UA Negative mg/dL Ketones) [facility] [id number] 08:31:00 Test Item Value Reference Range Interpretation Comments UA Bili (test code = Negative *NA*(05/05/19 UA Bili) 2:31 AM) [facility] [id number] 08:31:00 Test Item Value Reference Range Interpretation Comments UA Blood (test code = Negative (05/05/19 2:31 UA Blood) AM) [facility] AND [id number] 08:31:00 Test Item Value Reference Range Interpretation Comments UA Nitrite (test code Negative (05/05/19 2:31 = UA Nitrite) AM) [facility] AND [id number] 08:31:00 Test Item Value Reference Range Interpretation Comments UA Leuk Est (test Negative (05/05/19 2:31 code = UA Leuk Est) AM) [facility] AND [id number] 08:31:00 Test Item Value Reference Range Interpretation Comments UA Sq Epi (test code = UA Sq Epi) None Seen [facility] AND [id number] 08:31:00 Test Item Value Reference Range Interpretation Comments UA Color (test code = UA Color) STRAW [facility] AND [id number] 08:31:00 Test Item Value Reference Range Interpretation Comments UA Glucose (test code = UA Glucose) 150 [facility] AND [id number] 08:31:00 Test Item Value Reference Range Interpretation Comments UA Urobilinogen (test code = UA <=1.0 mg/dL 0.1-1.0 Urobilinogen) [facility] CenterCARD[facility]AC [id number] 08:31:00 Test Item Value Reference Range Interpretation Comments Troponin-I (test code no gt See_Comment [Auto mated message] The = Troponin-I) system which g enerated this result transmit danica reference range : <=0.40. The reference r shayna was not used to interpr et this result as zara l/abnormal. [facility] [employer] [id number] 08:31:00 Test Item Value Reference Range Interpretation Comments Glucose Lvl (test code = Glucose Lvl) 267 70-99 [facility] [id number] 08:31:00 Test Item Value Reference Range Interpretation Comments BUN (test code = BUN) 15 7-22 [facility] [id number] 08:31:00 Test Item Value Reference Range Interpretation Comments Creatinine Lvl (test code = Creatinine 0.99 0.50-1.40 Lvl) [facility] [id number] 08:31:00 Test Item Value Reference Range Interpretation Comments Sodium Lvl (test code = Sodium Lvl) 143 135-145 [facility]2019-12-08 08:31:00 Test Item Value Reference Range Interpretation Comments Potassium Lvl (test code = Potassium 4.1 3.5-5.1 Lvl) [facility]2019-12-08 08:31:00 Test Item Value Reference Range Interpretation Comments Chloride Lvl (test code = Chloride Lvl) 110 95-109 [facility]2019-12-08 08:31:00 Test Item Value Reference Range Interpretation Comments CO2 (test code = CO2) 27 24-32 [facility]2019-12-08 08:31:00 Test Item Value Reference Range Interpretation Comments Calcium Lvl (test code = Calcium Lvl) 8.9 8.5-10.5 [facility]2019-12-08 08:31:00 Test Item Value Reference Range Interpretation Comments Total Protein (test code = Total 6.1 6.4-8.4 Protein) [facility]2019-12-08 08:31:00 Test Item Value Reference Range Interpretation Comments Albumin Lvl (test code = Albumin Lvl) 3.4 3.5-5.0 [facility]2019-12-08 08:31:00 Test Item Value Reference Range Interpretation Comments ALT (test code = ALT) 16 See_Comment [Auto mated message] The system which ge nerated this result transmit danica reference range : <=65. The reference range was not used to interpr et this result as zara l/abnormal. [facility]2019-12-08 08:31:00 Test Item Value Reference Range Interpretation Comments AST (test code = AST) 10 See_Comment [Auto mated message] The system which ge nerated this result transmit danica reference range : <=37. The reference range was not used to interpr et this result as zara l/abnormal. [facility]2019-12-08 08:31:00 Test Item Value Reference Range Interpretation Comments Alk Phos (test code = Alk Phos) 53 39-136 [facility]2019-12-08 08:31:00 Test Item Value Reference Range Interpretation Comments Bili Total (test code = Bili Total) 0.7 0.2-1.3 [place] 566569-12-08 08:31:00 Test Item Value Reference Range Interpretation Comments eGFR (test code = eGFR) 70 [facility]2019-12-08 08:31:00 Test Item Value Reference Range Interpretation Comments AGAP (test code = AGAP) 10.1 10.0-20.0 [facility]2019-12-08 08:31:00 Test Item Value Reference Range Interpretation Comments B/C Ratio (test code = B/C Ratio) 15 1 6-25 [place] 566569-12-08 08:31:00 Test Item Value Reference Range Interpretation Comments Globulin (test code = Globulin) 2.7 2.7-4.2 [facility]2019-12-08 08:31:00 Test Item Value Reference Range Interpretation Comments A/G Ratio (test code = A/G Ratio) 1.3 1 0.7-1.6 [facility]roeJwuplmtJUSVVDPEDH8967-24-25 08:31:00 Test Item Value Reference Range Interpretation Comments Segs (test code = Segs) 67.3 45.0-75.0 [facility]roeYfgvhcgNSTYQSAVLJ7360-74-85 08:31:00 Test Item Value Reference Range Interpretation Comments Lymphocytes (test code = Lymphocytes) 20.3 20.0-40.0 [facility]roePclyvutFRGUBMAWOP6866-72-53 08:31:00 Test Item Value Reference Range Interpretation Comments Monocytes (test code = Monocytes) 9.1 2.0-12.0 [facility]roeSdjsbvyZAQBIRHFTZ9331-98-45 08:31:00 Test Item Value Reference Range Interpretation Comments Eosinophils (test code = 2.4 See_Comment [A utomated message] The Eosinophils) system which ge nerated this result tra nsmitted reference range : <=4.0. The reference r shayna was not used to int erpret this result as normal/abnormal . [facility]roeTqpfsdqETKRNIVTVH1288-35-69 08:31:00 Test Item Value Reference Range Interpretation Comments Basophils (test code = 0.9 See_Comment [Aut omated message] The Basophils) system which ge nerated this result tra nsmitted reference range : <=1.0. The reference r shayna was not used to int erpret this result as normal/abnormal . [facility]roeJcjqhdbBSZVYTCONJ7235-48-13 08:31:00 Test Item Value Reference Range Interpretation Comments Neutrophils # (test code = Neutrophils 5.4 1.5-8.1 #) [facility]roeSiflfdyGAEISRJHCR0671-43-00 08:31:00 Test Item Value Reference Range Interpretation Comments Lymphocytes # (test code = Lymphocytes 1.6 1.0-5.5 #) [facility]roeObftvojHJSKQAIXNT4126-11-56 08:31:00 Test Item Value Reference Range Interpretation Comments Monocytes # (test code 0.7 See_Comment [Aut omated message] The = Monocytes #) system which generated this result tra nsmitted reference range : <=0.8. The reference r shayna was not used to int erpret this result as normal/abnormal . [facility]roeAwussytGJVSYRXTMK7594-49-48 08:31:00 Test Item Value Reference Range Interpretation Comments Eosinophils # (test code 0.2 See_Comment [A utomated message] The = Eosinophils #) system whic h generated this result tra nsmitted reference range : <=0.5. The reference r shayna was not used to int erpret this result as normal/abnormal . [facility]roeVzsemssDKQKAITZTZ6260-89-31 08:31:00 Test Item Value Reference Range Interpretation Comments Basophils # (test code 0.1 See_Comment [Aut omated message] The = Basophils #) system which generated this result tra nsmitted reference range : <=0.2. The reference r shayna was not used to int erpret this result as normal/abnormal . [facility]roeVqpmuujKBECYCVEFJ0436-94-81 08:31:00 Test Item Value Reference Range Interpretation Comments WBC (test code = WBC) 8.0 3.7-10.4 [facility]roeZuwmxeyFMEAGIWJIX7657-86-86 08:31:00 Test Item Value Reference Range Interpretation Comments RBC (test code = RBC) 4.65 4.70-6.10 [facility]roeOqjfodcYYPWODMGPX6829-08-23 08:31:00 Test Item Value Reference Range Interpretation Comments Hgb (test code = Hgb) 14.0 14.0-18.0 [facility]roeVxeorrxRAOFJGLOQT9631-12-45 08:31:00 Test Item Value Reference Range Interpretation Comments Hct (test code = Hct) 41.8 42.0-54.0 [facility]roeGhfervhLWUEXSUOIY9799-41-49 08:31:00 Test Item Value Reference Range Interpretation Comments MCV (test code = MCV) 89.8 80.0-94.0 [facility]NcloifbFQCFVAIBWF5061-41-63 08:31:00 Test Item Value Reference Range Interpretation Comments MCH (test code = MCH) 30.1 pg 27.0-31.0 [facility] HospitalDxdbonqFVPETDVUBZ5307-91-78 08:31:00 Test Item Value Reference Range Interpretation Comments MCHC (test code = MCHC) 33.5 32.0-36.0 [facility] HospitalKomwmtvUCUPYZQQTP1190-18-96 08:31:00 Test Item Value Reference Range Interpretation Comments RDW (test code = RDW) 14.5 11.5-14.5 [facility] HospitalFoqlqrbUXVMHANBXG3181-15-83 08:31:00 Test Item Value Reference Range Interpretation Comments Platelet (test code = Platelet) 249 133-450 [facility]roeRensjsnXDVHVXCJDB6358-87-22 08:31:00 Test Item Value Reference Range Interpretation Comments MPV (test code = MPV) 8.2 7.4-10.4 [id number] 08:31:00 Test Item Value Reference Range Interpretation Comments PTT (test code = PTT) 31.5 s 22.9-35.8 [id number] 08:31:00 Test Item Value Reference Range Interpretation Comments INR (test code = INR) 1.15 1 0.85-1.17 [id number] 08:31:00 Test Item Value Reference Range Interpretation Comments PT (test code = PT) 14.5 s 12.0-14.7 [id number] 08:31:00 Test Item Value Reference Range Interpretation Comments Treponemal Ab (test code Non-Reactive = Treponemal Ab) *NA*(05/05/19 2:31 AM) [facility] AND [id number] 08:31:00 Test Item Value Reference Range Interpretation Comments UA Turbidity (test code = Clear (05/05/19 2:31 UA Turbidity) AM) [facility] AND [id number] 08:31:00 Test Item Value Reference Range Interpretation Comments UA Spec Grav (test code = UA Spec 1.006 1 Grav) [facility] AND [id number] 08:31:00 Test Item Value Reference Range Interpretation Comments UA pH (test code = UA pH) 7.0 1 5.0-8.0 [facility] AND [id number] 08:31:00 Test Item Value Reference Range Interpretation Comments UA Protein (test code = UA Negative mg/dL Protein) [facility] AND [id number] 08:31:00 Test Item Value Reference Range Interpretation Comments UA Ketones (test code = UA Negative mg/dL Ketones) [facility] AND [id number] 08:31:00 Test Item Value Reference Range Interpretation Comments UA Bili (test code = Negative *NA*(05/05/19 UA Bili) 2:31 AM) [facility] AND [id number] 08:31:00 Test Item Value Reference Range Interpretation Comments UA Blood (test code = Negative (05/05/19 2:31 UA Blood) AM) [facility] AND [id number] 08:31:00 Test Item Value Reference Range Interpretation Comments UA Nitrite (test code Negative (05/05/19 2:31 = UA Nitrite) AM) [facility] AND [id number] 08:31:00 Test Item Value Reference Range Interpretation Comments UA Leuk Est (test Negative (05/05/19 2:31 code = UA Leuk Est) AM) [facility] AND [id number] 08:31:00 Test Item Value Reference Range Interpretation Comments UA Sq Epi (test code = UA Sq Epi) None Seen [facility] AND [id number] 08:31:00 Test Item Value Reference Range Interpretation Comments UA Color (test code = UA Color) STRAW [facility] AND [id number] 08:31:00 Test Item Value Reference Range Interpretation Comments UA Glucose (test code = UA Glucose) 150 [facility] AND [id number] 08:31:00 Test Item Value Reference Range Interpretation Comments UA Urobilinogen (test code = UA <=1.0 mg/dL 0.1-1.0 Urobilinogen) [facility]
[2022-05-24 10:35] LABS: Absolute Lymphocytes (CBC) 0.9 K/uL (0.7-4.9); Hematocrit 36.3 % (39.6-49.0); Lymphocytes % 5.5 % (15.3-44.8); MCV 91.8 fL (80-100); MPV 10.3 fL (7.6-11.3); RBC Red Blood Cell Count 3.96 M/uL (4.33-5.43)
[2022-05-24 10:58] LABS: Albumin 2.3 g/dL (3.4-5.0); Bilirubin Total 0.5 mg/dL (0.2-1.0); Potassium 3.4 mmol/L (3.5-5.1); Protein, Total 7.7 g/dL (6.4-8.2)
--- NOTE | 2022-05-24 11:09 | RAD REPORT ---
EXAM DESCRIPTION: RAD - Foot Left 3 View - 05/24/2022 10:56 am CLINICAL HISTORY: PAIN Pain and swelling COMPARISON: Foot Left 2 View dated 01/16/2022; Foot Left 3 View dated 10/12/2021 FINDINGS: Prior amputation seen of the first and second toes. Soft tissue swelling is present adjace nt to the first metatarsal head with small soft tissue ulceration is present. Heavy vascular calcific ation. Small calcaneal spurs. No definitive plain radiograph finding for osteomyelitis. If there is p ersistent concern for osteomyelitis clinically, MRI foot would be recommended.
[2022-05-24] MEDS ORDERED: NA CHLORIDE 0.9% 1,000 ML ONE (11:32)
--- NOTE | 2022-05-24 12:41 | RAD REPORT ---
EXAM DESCRIPTION: RAD - Chest Single View - 05/24/2022 12:26 pm CLINICAL HISTORY: FEVER Chest pain. COMPARISON: Chest Single View dated 02/02/2022; Chest Single View dated 01/26/2022; Chest Single View d ated 01/21/2022; Chest Single View dated 01/20/2022 FINDINGS: Portable technique limits examination quality. The lungs are grossly clear. The heart is normal in size. No displaced fractures. IMPRESSION: No acute intrathoracic process suspected.
[2022-05-24] MEDS ORDERED: PIPERACIL/TAZO 3.375 GM VIAL IV ONE (12:54)
[2022-05-24] MEDS ORDERED: NA CHLORIDE 0.9% 100 ML IV ONE (12:54)
[2022-05-24 13:17] LABS: Urine Blood Negative (Negative); Urine Glucose Negative (Negative); Urine Protein Negative (Negative); Urine Specific Gravity 1.015 (1.005-1.030)
--- NOTE | 2022-05-24 13:29 | EDPHYS ---
Physician Documentation [facility] Name: Valerio France Age: 87 yrs Sex: Male : 1935 Arrival Date: 05/24/2022 Time: 10:02 Bed 7 Private MD: ED Physician Jose Rothman HPI: 05/24 11:05 This 87 yrs old Male presents to ER via EMS with complaints of Abnormal Lab Results. pm1 11:05 Onset: The symptoms/episode began/occurred today. Associated signs and symptoms: pm1 Pertinent negatives: cough, diarrhea, fever, vomiting, Pain. The patient has been recently seen by a physician: Amputation of left first and second toe about 1 week ago at [facility] per son at bedside. Patient sent to the ER for evaluation of abnormal labs, elevated sodium, chloride, and calcium from shelter. Patient at his baseline mental status which has not changed since January 2022 with onset of left lower extremity infection/osteomyelitis. Prior to January 2022 patient was able to have communicate and hold conversations. 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 - Social history:: Smoking status: unknown. ROS: 11:05 Constitutional: Negative for fever, chills, and weight loss, Cardiovascular: Negative pm1 for chest pain, palpitations, and edema, Respiratory: Negative for shortness of breath, cough, wheezing, and pleuritic chest pain, Abdomen/GI: Negative for abdominal pain, nausea, vomiting, diarrhea, and constipation, MS/Extremity: Negative for injury and deformity. 11:05 Skin: Positive for left great toe and second toe amputation looks worse per son, Negative for erythema, drainage. 11:05 Neuro: Negative for acute changes. 11:05 All other systems are negative. Exam: 11:05 Head/Face: Normocephalic, atraumatic. pm1 11:05 Constitutional: The patient appears in no acute distress, awake, non-diaphoretic, non-toxic, frail. 11:05 Eyes: Exam is negative for acute changes, Periorbital structures: no acute changes, Extraocular movements: no acute changes, Conjunctiva: no acute changes, no injection. 11:05 ENT: Exam is negative for acute changes, Mouth: no acute changes, Lips: normal, moist, Oral mucosa: normal, pink and intact, moist. 11:05 Cardiovascular: Exam negative for acute changes, Rate: normal, Rhythm: regular, Pulses: no pulse deficits are appreciated, Heart sounds: normal, normal S1and S2, Edema: is not appreciated. 11:05 Respiratory: Exam negative for acute changes, respiratory distress, shortness of breath, Breath sounds: are clear throughout. 11:05 Abdomen/GI: Inspection: abdomen appears normal, Palpation: abdomen is soft and non-tender, in all quadrants. 11:05 Skin: Appearance: normal except for affected area, Surgical wound on left foot: the wound appears to be healing well, the edges are well approximated, no evidence of dehiscence, no drainage, no erythema, no swelling. 11:05 Neuro: Exam negative for acute changes, Orientation: Not oriented to person, place, time, situation, His baseline per son at bedside since January 2022. Motor: moves all fours. Vital Signs: 10:16 BP 108 / 71; Pulse 91; Resp 16; Temp 97.2(A); Pulse Ox 100% ; iw 14:18 BP 120 / 81; Pulse 97; Resp 19; Pulse Ox 100% on R/A; iw MDM: 10:07 Patient medically screened. pm1 11:05 ED course: Obtain information from son due to patient's baseline of altered mental pm1 status. Patient was treated for osteomyelitis of the left lower extremity resulting in amputation of left great toe and left second toe at [facility] 1 week ago. 11:46 Counseling: I had a detailed discussion with the patient and/or guardian regarding: the pm1 historical points, exam findings, and any diagnostic results supporting the discharge/admit diagnosis, the need for further work-up and treatment in the hospital, Patient's family would like the patient transferred to [facility] for hospitalization. 12:28 Physician consultation: Hospitalist Dandre regarding regarding transfer, patient's pm1 condition, and will see patient. 12:41 ED course: ER Attending MD recommended Zosyn for leukocytosis. pm1 13:21 Data reviewed: vital signs. Data interpreted: Pulse oximetry: on room air is 100 %. pm1 Interpretation: normal. 05/24 10:18 Order name: CBC with Diff; Complete Time: 11:20 pm1 05/24 10:18 Order name: CMP; Complete Time: 11:08 pm1 05/24 10:18 Order name: Blood Culture Adult (2) pm1 05/24 12:41 Order name: Urine Microscopic Only; Complete Time: 13:47 pm1 05/24 13:17 Order name: Urine Dipstick-Ancillary; Complete Time: 13:23 EDMS 05/24 10:18 Order name: IV Saline Lock; Complete Time: 10:53 pm1 05/24 10:26 Order name: Foot Left 3 View XRAY; Complete Time: 11:09 pm1 05/24 11:31 Order name: Chest Single View XRAY; Complete Time: 12:49 pm1 05/24 11:36 Order name: Urine Dipstick-Ancillary (obtain specimen); Complete Time: 12:41 pm1 Administered Medications: 11:38 Drug: NS 0.9% 1000 ml Route: IV; Rate: 1 bolus; Site: right wrist; iw 13:37 Drug: Zosyn (piperacillin-tazobactam) 3.375 grams Route: IVPB; Infused Over: 60 mins; iw Site: right wrist; Disposition Summary: 05/24/22 13:28 Transfer Ordered Transfer Location: Other Acute Care Facility pm1 Reason: Patient request pm1 Condition: Stable pm1 Problem: new pm1 Symptoms: have improved pm1 Accepting Physician: Dandre MURRAY(05/24/22 14:20) iw Diagnosis - Dehydration pm1 - Acute kidney injury pm1 - Leukocytosis pm1 Discharge Instructions: - Discharge Summary Sheet kj1 Forms: - Medication Reconciliation Form pm1 - SBAR form kj1 Signatures: Dispatcher [employer] Trisha Flores, RN RN iw Carlitos Meehan NP DIRECTOR OF RECRUITMENT AND ADMISSIONS pm1 Corrections: (The following items were deleted from the chart) 13:25 11:05 ED course: Obtain information from son due to patient's baseline of altered pm1 mental status. Patient was treated for osteomyelitis of the left lower extremity resulting in amputation of left great toe, second great toe and third great toe at [facility] 1 week ago. pm1 14:20 13:28 Dandre MURRAY pm1 iw
--- NOTE | 2022-05-24 13:29 | ER ---
Nurse's Notes [facility] Name: Valerio France Age: 87 yrs Sex: Male : 1935 Arrival Date: 05/24/2022 Time: 10:02 Bed 7 Private MD: Diagnosis: Dehydration;Acute kidney injury;Leukocytosis Presentation: 05/24 10:16 Chief complaint: EMS states: sent over for abnormal labs, calcium, potassium. chloride, iw doctor was worried about dehydration or kidney issues. Coronavirus screen: At this time, the client does not indicate any symptoms associated with coronavirus-19. Ebola Screen: Patient negative for fever greater than or equal to 101.5 degrees Fahrenheit, and additional compatible Ebola Virus Disease symptoms Patient denies exposure to infectious person. Patient denies travel to an Ebola-affected area in the 21 days before illness onset. No symptoms or risks identified at this time. Initial Sepsis Screen: Does the patient meet any 2 criteria? HR > 90 bpm. Does the patient have a suspected source of infection?. Risk Assessment: Do you want to hurt yourself or someone else? Patient reports no desire to harm self or others. Onset of symptoms was May 24, 2022. 10:16 Method Of Arrival: EMS: [facility] iw 10:16 Acuity: VICTORINO 3 iw Triage Assessment: 10:20 General: Appears in no apparent distress. Behavior is quiet. 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 - Social history:: Smoking status: unknown. Screenin:20 [facility] ED Fall Risk Assessment (Adult) Confusion or Disorientation. Abuse screen: iw Denies threats or abuse. Denies injuries from another. Nutritional screening: On Difficulty chewing/swallowing? Yes. Tuberculosis screening: No symptoms or risk factors identified. Vital Signs: 10:16 BP 108 / 71; Pulse 91; Resp 16; Temp 97.2(A); Pulse Ox 100% ; iw 14:18 BP 120 / 81; Pulse 97; Resp 19; Pulse Ox 100% on R/A; iw ED Course: 10:02 Patient arrived in ED. ld1 10:06 Marinas, Carlitos, THREAD REELER is PHCP. pm1 10:06 Jose Rothman MD is Attending Physician. pm1 10:17 Triage completed. iw 10:17 Arm band placed on. iw 10:17 Patient has correct armband on for positive identification. Client placed on continuous iw cardiac and pulse oximetry monitoring. NIBP monitoring applied. 10:19 Trisha Sorensen, RN is Primary Nurse. iw 10:19 Inserted saline lock: 20 gauge in right wrist, using aseptic technique. Blood collected.iw 10:58 Foot Left 3 View XRAY In Process Unspecified. EDMS 11:00 First set of blood cultures drawn by me. em1 11:15 Second set of blood cultures drawn by me. em1 11:18 Blood Culture Adult (2) Sent. em1 11:18 Popeye wrap to left wrist to cover IV site so that pt doesn't pull out IV access. em1 12:28 Chest Single View XRAY In Process Unspecified. EDMS 14:20 No provider procedures requiring assistance completed. Patient transferred, IV remains iw in place. Administered Medications: 11:38 Drug: NS 0.9% 1000 ml Route: IV; Rate: 1 bolus; Site: right wrist; iw 13:37 Drug: Zosyn (piperacillin-tazobactam) 3.375 grams Route: IVPB; Infused Over: 60 mins; iw Site: right wrist; Medication: 10:20 VIS not applicable for this client. iw Outcome: 13:28 ER care complete, transfer ordered by . pm1 14:19 Transferred by ground EMS to [facility], Transfer form iw completed. X-rays sent w/ patient. Note: Nehemias 14:19 Condition: good 14:19 Discharge instructions given to family, Instructed on the need for transfer. 14:20 Patient left the ED. iw Signatures: Dispatcher [employer] EDMS Trisha Sorensen, RN LIOR Nigel Mathews em1 Carlitos Meehan, ALEXANDRA THREAD REELER pm1 Alda Trevizo RN RN ld1
[2022-05-24 13:30] LABS: Urine Bacteria None Seen /HPF (<20); Urine Mucus Slight /HPF (None Seen); Urine RBC <5 /HPF (None Seen)
[2022-05-24 14:42] VITALS: TEMP 97.2; O2SAT 100
[2022-05-24 14:43] VITALS: BP 120/81
== END 2022-05-24 14:20 ==
LOC: ER 09:57
DX: E86.0 Dehydration (principal); N17.9 Acute kidney failure, unspecified; D72.829 Elevated white blood cell count, unspecified; E11.9 Type 2 diabetes mellitus without complications; I10 Essential (primary) hypertension; Z89.422 Acquired absence of other left toe(s); Z86.73 Personal history of transient ischemic attack (TIA), and cerebral infarction without residual deficits
CPT/HCPCS: 87040 ×2; 85025; 36415; 80053; 71045; 73630; J2543; J7030; 81003; 81015; 96374; 99285